=== PATIENT | male | born 1945 | race Caucasian/White ===

== ENCOUNTER → 2017-12-18 09:33 | Outpatient (CLI) | payer MEDICARE, SELFPAY ==
[2017-12-18 11:07] LABS: PSA,Total- Diagnostic 4.43 ng/mL (0.0-4.0)
== END ==
PROVIDERS: Family Provider Internal Medicine; PCP Internal Medicine; Visit Provider Urology
DX: C61 Malignant neoplasm of prostate (principal)
CPT/HCPCS: 36415; 84153

== ENCOUNTER 2018-04-20 22:53 | Emergency (ER) | payer MEDICARE, SELFPAY ==
[2018-04-20 22:55] VITALS: BP 139/82; PULSE 99; RESP 15; TEMP 36.9; BMI 31.4
[2018-04-20 23:27] LABS: Absolute Neutrophil Count 4.1 X10^3/uL (2.0-7.7); Basophil# 0.02 X10^3/uL; Basophil% 0.3 % (0-1); Eosinophil# 0.02 X10^3/uL; Eosinophils% 0.3 % (0-5); Hematocrit 40.4 % (40-54); Hemoglobin 13.5 g/dl (13.0-16.5); Lymphocyte % 36.3 % (19-41); Mean Corp Hgb Conc 33.4 g/gl (32-36); Mean Corpuscular Volume 92.7 fL (80-94); Mean Platelet Vol. 10.8 fl (6.2-12.0); Monocyte# 0.57 X10^3/uL; Monocyte% 7.7 % (0-10); Neutrophil # 4.12 X10^3/uL (2.7-7.7); Neutrophil % 55.3 % (47-70); Platelet Count 316 K/mm3 (150-450); RBC Distribution Width CV 13.7 % (11.6-14.6); RBC Distribution Width SD 46.5 fl (35.1-43.9); Red Blood Count 4.36 M/mm3 (4.6-6.2); White Blood Count 7.4 K/mm3 (4.4-11.0)
[2018-04-20 23:28] LABS: Anion Gap 12 (5-15); BUN 63 mg/dL (7-18); BUN/Creat Ratio 40.9 RATIO (10-20); Calcium,Total 9.4 mg/dL (8.5-10.1); Chloride 96 mmol/L (98-107); Creatinine, Serum 1.54 mg/dL (0.70-1.30); EST Glomerular Filtration Rate 48 mL/min (>60); Est Glom Filt Rate - Afr Amer 58 mL/min (>60); Estimated Creatinine Clearance 51.15 ml/min; Glucose 167 mg/dL (74-106); Potassium 3.9 mmol/L (3.5-5.1); Sodium Level 130 mmol/L (136-145)
[2018-04-20 23:31] VITALS: PULSE 98; RESP 26; O2SAT 92
[2018-04-20 23:35] LABS: POSITIVE COUNT NO; POSITIVE DIFFERENTIAL NO; POSITIVE MORPHOLOGY NO
[2018-04-20] MEDS: Morphine 4 MG/ML Syringe IV (23:38)
[2018-04-20] MEDS: Ondansetron 4 MG/2 ML Vial IV (23:38)
--- NOTE | 2018-04-20 23:38 | CT_ITS ---
STUDY: CT ABDOMEN AND PELVIS WITHOUT CONTRAST REASON FOR EXAM: Male, 73 years old. LOWER ABD PAIN ALL OVER SINCE 1030PM, EARLIER THIS WEEK N/V/D, HX LIVER CA 2014 RADIATION DOSAGE (If Supplied By Facility): CTDIvol = ( 19.30 ) mGy, DLP = ( 1340.55 ) mGycm TECHNIQUE: Transaxial images were obtained from the dome of the diaphragm to the symphysis pubis without oral contrast, and without intravenous contrast. Sagittal and coronal images were reconstructed. Individualized dose optimization techniques were used for this CT. COMPARISON: None. FINDINGS: There is dependent atelectasis in the right and left lung lower lobes. The visualized portions of the heart are within normal limits. Normal liver. There are multiple gallstones. Normal spleen. Normal pancreas. Normal bilateral adrenal glands. Normal right kidney. Normal left kidney. Normal visualized stomach. There are dilated loops of the small intestine with a non-distended colon consistent with a small bowel obstruction. Due to incarcerated right inguinal hernia measures approximately 9.5 x 7 x 14 cm. Normal colon. The appendix is visualized and appears normal. Normal abdominal aorta. Normal inferior vena cava. Normal retroperitoneum. Normal urinary bladder. There is an incarcerated right-sided inguinal hernia containing the ileocecal junction. There is an umbilical hernia containing fat measures 3 cm. Normal osseous structures. CT/Abdomen/Pelvis without Cont IMPRESSION: There are dilated loops of the small intestine with a non-distended colon consistent with a small bowel obstruction. There is an incarcerated right inguinal hernia measures approximately 9.5 x 7 x 14 cm. Electronically Signed: Laverne Ladd MD at 0:50 EDT Tel , Service support ,
[2018-04-20 23:47] VITALS: BP 135/76; PULSE 88; RESP 24; O2SAT 88
[2018-04-21 00:07] LABS: International Normalized Ratio 1.3; Prothrombin Time (Protime)PT. 16.3 SECONDS (11.7-14.9)
[2018-04-21 00:08] LABS: Partial Thromboplast Time 39.8 Seconds (24.1-36.2)
[2018-04-21] MEDS: Morphine 4 MG/ML Syringe IV (00:26)
[2018-04-21 00:30] VITALS: BP 157/77; PULSE 110; RESP 28; O2SAT 95
--- NOTE | 2018-04-21 00:57 | ED.VISSUMM ---
- ER Visit Summary Date of Service: 04/21/18 Chief Complaint: [] Abdominal pain History of Present Illness: The patient is a 73 M planing of abdominal pain for last hours sudden onset continuous aching cramping sharp and stabbing lower abdomen pain. Associated with nausea. He has had a chronic right inguinal hernia that has been worsening of the last 2 weeks. He does have a history of hepatocellular carcinoma in remission. Physical Examination: [] Vital signs reviewed General: Well-nourished well-developed Head: Normocephalic atraumatic Eyes: Pupils equal round and reactive to light extraocular movements intact ENT: TMs clear no hemotympanum no trauma Neck: Nontender full range of motion Cardiovascular: Regular rate rhythm no murmurs normal S1-S2 Respiratory: No distress clear to auscultation bilaterally chest nontender Abdomen: Mild diffuse lower abdominal tenderness. Small umbilical hernia. Large right inguinal hernia into the scrotum. It is a baseball size. There is induration. Tenderness. Back: Nontender no CVA tenderness Extremities: Nontender active range of motion ?4 extremities no trauma Skin: Normal color no trauma Neuro alert oriented cranial nerves II through XII intact normal strength sensation reflexes Test Results: [] Emergency Department Course and Treatment: [] Multiple attempts were tried to reduce the hernia with no success. It is too large and indurated. CBC normal. Chemistries normal except sodium 130. Chloride 96. Creatinine 1.5. Coags are negative. CT abdomen pelvis shows small bowel obstruction with incarcerated right inguinal hernia. I do not think the patient needs an NG. Is not having vomiting. Will be transferred to [facility] as our operating room is down for cleaning. Discussed with our surgeon on-call Dr. Amezcua and also Dr. Cohen at [facility]. He will be transferred. Given morphine IV fluids and Zofran with good relief of symptoms Treatment Plan: [] Disposition: [] Impression: [] Incarcerated right inguinal hernia Small bowel obstruction secondary to incarcerated inguinal hernia Acute renal insufficiency Critical CARE time: 30-74 minutes This note was generated with [facility] dictation software. It may contain incorrect words, spelling, and punctuation that were not noted in review of the chart prior to signing ED Disposition - Plan for ED Patient: Chief Complaint: Abd Pain Referrals: Swetha Pedersen DO [Primary Care Provider] -
[2018-04-21] MEDS: HYDROmorphone 0.5 MG/0.5 ML SYRINGE IV (01:36)
[2018-04-21 02:17] VITALS: BP 117/65; PULSE 107; O2SAT 91
[2018-04-21 03:00] VITALS: BP 105/58; PULSE 98; RESP 22; TEMP 36.9; O2SAT 93
== END 2018-04-21 02:57 | disposition short-term general hospital (02) ==
PROVIDERS: Emergency Provider Emergency Medicine; Family Provider Internal Medicine; PCP Internal Medicine
DX: K40.30 Unilateral inguinal hernia, with obstruction, without gangrene, not specified as recurrent (principal); N28.9 Disorder of kidney and ureter, unspecified; I10 Essential (primary) hypertension; E78.00 Pure hypercholesterolemia, unspecified; B19.20 Unspecified viral hepatitis C without hepatic coma; Z85.05 Personal history of malignant neoplasm of liver; Z79.82 Long term (current) use of aspirin; Z79.899 Other long term (current) drug therapy
CPT/HCPCS: 74176; 80048; 85025; 85610; 85730; 96361; 96374; 96375; 96376; 99284; J7040; A4216; J2405

== ENCOUNTER 2018-05-11 12:26 | Inpatient (IN) | payer MEDICARE, SELFPAY ==
[2018-05-11] VITALS (8 sets, daily range): BP systolic 109–129; BP diastolic 68–75; PULSE 91–106; RESP 16–18; TEMP 36.6–37.4; O2SAT 92–94; BMI 28.8; BMI 29.3; BMI 29.4
--- NOTE | 2018-05-11 13:08 | ED.DCSUM_ITS ---
- ER Visit Summary Date of Service: 05/11/18 Chief Complaint: Wound check History of Present Illness: The patient is a 73 M presenting for wound check. Patient had surgery at [facility] on April 25 for a strangulated hernia. This was complicated by sepsis. He was in the hospital for 12 days. He was discharged 1 week ago. He has home nursing that changes his dressing once daily. They were concerned about a foul odor yesterday. Today he developed a fever and was advised to come to the ED for further evaluation. Physical Examination: Vitals are stable. Patient is afebrile. Alert no acute distress. HEENT exam is unremarkable. Neck is supple. Lungs are clear and equal bilaterally. Heart is regular rate and rhythm. Abdomen is soft nontender nondistended. Incision intact with mild erythema Extremities are unremarkable. Skin is warm and dry. No focal neurologic deficit. Remainder of exam is unremarkable. Emergency Department Course and Treatment: CBC shows a hemoglobin 9.7. Chemistries show sodium 130, glucose 136. Urinalysis unremarkable. Abdominal series shows pleural effusion versus infiltrate; ileus. Patient was given vancomycin and Zosyn for healthcare acquired pneumonia. Discussed with Dr. Meeks at [facility]. He is in agreement that the patient can stay at [facility] as the patient wishes. Discussed with Dr. Hyde and patient will be admitted. Disposition: Admission Impression: Healthcare acquired pneumonia This note was generated with [employer] dictation software. It may contain incorrect words, spelling, and punctuation that were not noted in review of the chart prior to signing ED Disposition - Plan for ED Patient: Chief Complaint: Wound Check Referrals: Swetha Pedersen DO [Primary Care Provider] -
[2018-05-11 13:30] LABS: Absolute Lymphocyte Count 1.73 X10^3/ul (0.83-4.51); Absolute Neutrophil Count 4.9 X10^3/uL (2.0-7.7); Basophil# 0.03 X10^3/uL; Basophil% 0.4 % (0-1); Eosinophils% 1.3 % (0-5); Hematocrit 29.8 % (40-54); Hemoglobin 9.7 g/dl (13.0-16.5); Lymphocyte # 1.73 X10^3/ul (4.0); Mean Corp Hgb Conc 32.6 g/gl (32-36); Mean Corpuscular Hgb 29.8 pg (27.0-32.0); Mean Corpuscular Volume 91.4 fL (80-94); Monocyte# 0.76 X10^3/uL; Monocyte% 10.1 % (0-10); Neutrophil # 4.85 X10^3/uL (2.7-7.7); Neutrophil % 64.5 % (47-70); POSITIVE COUNT NO; POSITIVE DIFFERENTIAL NO; POSITIVE MORPHOLOGY NO; Platelet Count 433 K/mm3 (150-450); RBC Distribution Width CV 14.1 % (11.6-14.6); RBC Distribution Width SD 46.5 fl (35.1-43.9); Red Blood Count 3.26 M/mm3 (4.6-6.2); White Blood Count 7.5 K/mm3 (4.4-11.0)
--- NOTE | 2018-05-11 13:30 | RAD_ITS ---
STUDY: X-RAY - ACUTE ABDOMINAL SERIES REASON FOR EXAM: Male, 73 years old. Recent hernia repair. Fever. TECHNIQUE: Single view of the chest. Supine, and erect view(s) of the abdomen were obtained. COMPARISON: CT scan 04/20/2018. FINDINGS: The chest x-ray shows extensive density in the lower half of the right lung consistent with atelectasis or infiltrate along with pleural effusion. In the abdomen and pelvis, there or a few air-fluid levels some of which are in small bowel and suggest ileus. However no definite dilated loops of bowel or evidence for obstruction and no definite free air. Cholelithiasis is seen. Degenerative changes throughout the bones. IMPRESSION: Extensive abnormality the right lung with pleural effusion and atelectasis or infiltrate. Bowel gas pattern suggests ileus. Electronically Signed: Benton Toledo MD at 14:45 EDT , Service support , RAD/Acute Abdomen Inc Chest
[2018-05-11 13:42] LABS: Anion Gap 7 (5-15); BUN 12 mg/dL (7-18); BUN/Creat Ratio 14.9 RATIO (10-20); Calcium,Total 7.8 mg/dL (8.5-10.1); Chloride 98 mmol/L (98-107); Creatinine, Serum 0.81 mg/dL (0.70-1.30); EST Glomerular Filtration Rate 100 mL/min (>60); Est Glom Filt Rate - Afr Amer 121 mL/min (>60); Estimated Creatinine Clearance 97.25 ml/min; Glucose 136 mg/dL (74-106); Potassium 4.2 mmol/L (3.5-5.1); Sodium Level 130 mmol/L (136-145)
[2018-05-11 14:36] LABS: Red Blood Cells-Urine 0 SEEN /hpf (0-5)
[2018-05-11 14:37] LABS: Color, Urine Yellow (Yellow); Glucose, Dipstick Normal (Normal); Ketone-Dipstick Negative (Negative); Leukocyte Esterase-Dipstick 25 /ul (Negative); Nitrite-Dipstick Negative (Negative); Occult Blood-Urine Negative /ul (Negative); Protein-Dipstick 15 mg/dl (Negative); Urine Clarity Clear (Clear); Urine Urobilinogen 4 mg/dl (Normal)
[2018-05-11 14:40] LABS: Urine Bilirubin Dipstick 1 mg/dL (Negative)
[2018-05-11 14:45] LABS: Bacteria 1+ /hpf (None Seen); Mucous, Urine 2+ /hpf (<or=2+); Squamous Epithelial Cells - UA 0-5 SEEN /hpf (0-5); White Blood Cells 0-5 SEEN /hpf (0-5)
--- NOTE | 2018-05-11 15:50 | HP.PCM_ITS ---
Problem List (1) Pneumonia Status: Acute (2) Essential hypertension Status: Chronic (3) Dyslipidemia Status: Chronic History of Present Illness Date of Admission: 05/11/18 Chief Complaint: Cough The patient is a 73 year old M with recent laparotomy for strength related hernia which was performed at [facility]. Patient presented with generalized weakness. Patient was apparently paid a visit by his home health nurse who felt his incision was infected. He was therefore asked to present to the ED. On further questioning patient did admit to feeling excessive fatigue he also has a cough but no shortness of breath. He did experience low-grade fever at home. Imaging studies obtained in the ED demonstrated right lower lobe infiltrate consistent with pneumonia and assessment of healthcare acquired pneumonia made patient admitted to regular nursing floor for further management. Past Medical History Past Medical History (Chronic Problems): Chronic Problems Essential hypertension (Chronic) Dyslipidemia (Chronic) Allergies No Known Allergies Allergy (Verified 05/11/18 12:26) Home Medications: Ambulatory Orders Medication Instructions Recorded Amlodipine [Norvasc] 5 mg PO DAILY 04/20/18 Aspirin [Aspirin, Baby] 81 mg PO DAILY@0800 04/20/18 Cholecalciferol (Vitamin D3) 5,000 unit PO DAILY 04/20/18 [Vitamin D3] Gemfibrozil [Lopid] 600 mg NG BIDAC 04/20/18 Lisinopril [Zestril] 20 mg PO BID 04/20/18 Multivitamin [Daily Multiple 1 each PO DAILY 04/20/18 Vitamin] Oxycodone HCl/Acetaminophen 1 - 2 tablet PO Q6H PRN PRN 05/11/18 [Percocet 5/325] Promethazine HCl 25 mg PO Q6H PRN 05/11/18 Smoking Status: Former smoker - *Family History Maternal History Items: Cancer Paternal History Items: Heart Disease Review of Systems Constitutional: Reports: Anorexia, Fever, Malaise, Weakness HEENT: Denies: Head Aches, Sinus Congestion, Sinus Drainage Cardiovascular: Denies: Chest Pain, Orthopnea, Palpitations, Paroxysmal Noc. Dyspnea Respiratory: Reports: Cough Gastrointestinal: Denies: Abdominal Pain, Hematemesis, Hematochezia, Nausea, Melena, Vomiting Genitourinary: Denies: Dysuria, Frequency, Hematuria, Urgency Musculoskeletal: Denies: Joint Pain, Joint Tenderness Skin: Denies: Rash Neurological: Denies: Focal weakness, Numbness, Tingling Psychiatric: Denies: Homicidal Ideations, Suicidal Ideations Hematologic/ Lymphatic: Denies: Easy Bruising, Easy Bleeding VTE Information - Inpt Only VTE Present on Admission: No VTE Mechan Device Prophylaxis: Knee High OLGA Hose VTE Pharm Prophylaxis ordered?: Yes Patient Problems: Active and Suspected Problems Pneumonia (Acute) Objective: GENERAL: Patient appears ill looking HEENT: Atraumatic; moist oral mucosa EYES; Anicteric, Normal Conjunctiva NECK; supple, normal thyroid, no distended JVD. RESPIRATORY: Diminished to auscultation bilaterally, CARDIOVASCULAR: Regular S1 S2, no audible murmurs GI: soft, non-tender, abdominal incision well-healed : No Renal angle tenderness; EXTREMITIES: No edema, no clubbing, no cyanosis. MUSCULOSKELETAL: No Joint Tenderness; no muscle waisting NEURO: Awake; no lateralizing signs. SKIN: No Rash PSYCH; Flaaffect - Physical Exam Vital Signs Temp Pulse Resp BP Pulse Ox 99.4 F H 106 H 16 109/68 92 05/11/18 12:52 05/11/18 12:27 05/11/18 14:33 05/11/18 12:27 05/11/18 12:27 Oxygen Delivery Method Room Air Weight: 102.058 kg Body Mass Index (BMI) 28.8 Laboratory Tests Past 24 Hrs 05/11/18 05/11/18 05/11/18 13:19 13:19 14:29 WBC 7.5 RBC 3.26 L Hgb 9.7 L Hct 29.8 L MCV 91.4 MCH 29.8 MCHC 32.6 RDW 14.1 RDW Differential 46.5 H Plt Count 433 MPV 9.0 Immature Gran % (Auto) 0.700 Neut % (Auto) 64.5 Lymph % (Auto) 23.0 [place] % (Auto) 10.1 H Eos % (Auto) 1.3 Baso % (Auto) 0.4 Absolute Neuts (auto) 4.9 Absolute Lymphs (auto) 1.73 Total Counted Not Reportable Sodium 130 L Potassium 4.2 Chloride 98 Carbon Dioxide 25.0 Anion Gap 7 BUN 12 Creatinine 0.81 Estim Creat Clear Calc 97.25 Est GFR (MDRD) Af Amer 121 Est GFR (MDRD) Non-Af 100 BUN/Creatinine Ratio 14.9 Glucose 136 H Calcium 7.8 L Urine Color Yellow Urine Clarity Clear Urine pH 7.0 Ur Specific [place] 1.010 Urine Protein 15 H Urine Glucose (UA) Normal Urine Ketones Negative Urine Occult Blood Negative Urine Nitrite Negative Urine Bilirubin 1 H Urine Urobilinogen 4 H Ur Leukocyte Esterase 25 H Urine RBC 0 SEEN Urine WBC 0-5 SEEN Ur Squamous Epith Cells 0-5 SEEN Urine Bacteria 1+ Urine Mucus 2+ Assessment/Plan All Active Problems Pneumonia (Acute) Patient is a 73-year-old gentleman who underwent exploratory laparotomy on account of strength related hernia on 04/21/2018 at [facility] presents with progressive generalized weakness 1. Healthcare acquired pneumonia: Suspected to negative organisms. Patient is admitted to regular floor. Blood and sputum cultures sent. Patient placed on Zosyn as well as ciprofloxacin in addition to oxygen titrated to keep oxygen saturation greater than 90. Also did order for incentive spirometry 2. Adult failure to thrive: Requested for PT OT eval and social work faculty member to assist with discharge planning 3. Dyslipidemia patient is on gemfibrozil 4. Hypertension-blood pressure controlled, home medications continued with dose adjustment as needed 5. DVT prophylaxis SC Lovenox Advance planning; did discuss with the patient and family regarding her advanced directives as well as CODE STATUS. Did explain the various modalities involved ( FULL CODE, DNR CCA, DNR CCA with no intubation, and DNR CC ) patient elected to be full code. Order was placed. Time spent on discussion 16 minutes. Code Visit Inpatient E&M: 68286 Subs Hosp L3 Procedures: 29812 Advncd Care Plan 30 Min
[2018-05-11] MEDS: Dext 5%-0.45% NS 1,000 ML 100 ML IV (17:55)
[2018-05-11] MEDS: guaiFENesin 1,200 MG Tablet 1200 MG PO (22:31)
[2018-05-11] MEDS: Zolpidem Tartrate 5 MG Tablet PO (22:31)
[2018-05-11] MEDS: Famotidine 20 MG Tablet PO (22:31)
[2018-05-11] MEDS: Lisinopril 20 MG Tablet PO (22:31)
[2018-05-11] MEDS: Ciprofloxacin 400 MG/200 ML BAG 200 MG IV (22:31)
[2018-05-11] MEDS: Piperacil/Tazobactam 3.375 GM/50 ML ML IV (23:38)
[2018-05-12] VITALS (14 sets, daily range): BP systolic 100–148; BP diastolic 56–84; PULSE 80–102; RESP 18–28; TEMP 36.6–37.9; O2SAT 91–99
[2018-05-12] MEDS: Dext 5%-0.45% NS 1,000 ML 100 ML IV (03:34)
[2018-05-12] MEDS: Furosemide 40 MG/4 ML Vial IV (03:58)
[2018-05-12] MEDS: 0.9% NaCl Peripheral Flush Adult/Peds IV (03:58)
[2018-05-12] MEDS: Ciprofloxacin 400 MG/200 ML BAG 200 MG IV ×3 (05:01→20:58)
[2018-05-12] MEDS: Acetaminophen 325 MG Tablet 650 MG PO (05:01)
[2018-05-12 05:56] LABS: BNP,B-Type NATRIURETIC PEPTIDE 40.6 pg/mL (0-100)
--- NOTE | 2018-05-12 06:00 | ECHOD_ITS ---
Reason For Study: Dyspnea/SOB Procedure This was a 2D Doppler, Color Flow transthoracic echocardiogram. Exam performed portable in patient room. Left Ventricle Normal size and thickness. The estimated ejection fraction is 65 %. Stage 1 diastolic dysfunction. Right Ventricle Normal right ventricle. Atria Normal left atrium. Normal right atrium. Mitral Valve The mitral valve is structurally normal. No prolapse or stenosis seen. Tricuspid Valve Mild tricuspid valve insufficiency. Right ventricular systolic pressure estimated to be 35 mmHg. Aortic Valve Normal aortic valve. Pulmonic Valve The pulmonic valve is not well visualized. Great Vessels Normal aortic root. Pericardium/Pleural No pericardial effusion. MMode/2D Measurements & Calculations LVIDd: 4.6 cm IVSd: 1.0 cm Ao root diam: 3.5 cm LVIDs: 3.4 cm LVPWd: 1.3 cm LA dimension: 3.5 cm FS: 26.2 % LAV(MOD-bp): 74.3 ml LA A4 area: 23.0 cm2 RA A4 area: 13.5 cm2 LAV(MOD-bp) Indexed: 32.3 ml/m2 LAV(MOD-sp2): 74.2 ml LAV(MOD-sp4): 75.8 ml Time Measurements MV dec time: 0.28 sec Doppler Measurements & Calculations MV E max ju[place]: 66.0 cm/sec Lat Peak E' [place]: 9.6 cm/sec Med Peak E' [place]: 9.3 cm/sec MV A max ju[place]: 78.3 cm/sec E/E' lat: 6.9 E/E' med: 7.1 MV E/A: 0.84 MV V2 max: 79.3 cm/sec MV P1/2t max juan franc[place]: 71.0 cm/sec Ao V2 max: 168.5 cm/sec MV max P.5 mmHg MV P1/2t: 74.0 msec Ao max P.4 mmHg MV V2 mean: 49.6 cm/sec MV dec slope: 280.8 cm/sec2 Ao V2 mean: 107.7 cm/sec MV mean P.1 mmHg MVA(P1/2t): 3.0 cm2 Ao mean P.4 mmHg MV V2 VTI: 21.3 cm Ao V2 VTI: 26.2 cm LV V1 max: 147.4 cm/sec PA V2 max: 124.2 cm/sec TR max juan francisco: 269.2 cm/sec LV V1 max P.7 mmHg TR max P.0 mmHg LV V1 mean P.5 mmHg LV V1 mean: 84.7 cm/sec LV V1 VTI: 22.9 cm Interpretation Summary The estimated ejection fraction is 65 %. Stage 1 diastolic dysfunction. Right ventricular systolic pressure estimated to be 35 mmHg. Mild tricuspid valve insufficiency. Ordering Physician: Rosmery Greenfield Referring Physician: Swetha Pedersen M.D. Performed By: Duncan Rubio RCS
[2018-05-12] MEDS: Piperacil/Tazobactam 3.375 GM/50 ML ML IV ×3 (06:27→22:42)
[2018-05-12] MEDS: Ipratropium/Albuterol Sulfate 3 ML AMPUL.NEB INHALATION ×2 (07:06→13:16)
[2018-05-12] MEDS: Aspirin 81 MG TAB.CHEW PO (08:05)
[2018-05-12] MEDS: Multivitamins,Therapeutic Tablet 1 TABLET PO (08:05)
--- NOTE | 2018-05-12 09:14 | PCM.PN.HOSP ---
Patient Problems: Active and Suspected Problems Pneumonia (Acute) Subjective: Patient is a 73-year-old gentleman who underwent exploratory laparotomy on account of strength related hernia on 04/21/2018 at [facility] presents with progressive generalized weakness 05/12/2018. Patient went into acute respiratory distress during the evening. An assessment of fluid overload was made patient did receive Lasix with significant urine output. His IV fluids subsequently discontinued 2D echo ordered for EF assessment Objective: GENERAL: Patient appears ill looking HEENT: Atraumatic; moist oral mucosa EYES; Anicteric, Normal Conjunctiva NECK; supple, normal thyroid, no distended JVD. RESPIRATORY: Diminished to auscultation bilaterally, bibasilar Rales CARDIOVASCULAR: Regular S1 S2, no audible murmurs GI: soft, non-tender, abdominal incision well-healed : No Renal angle tenderness; EXTREMITIES: No edema, no clubbing, no cyanosis. MUSCULOSKELETAL: No Joint Tenderness; no muscle waisting NEURO: Awake; no lateralizing signs. SKIN: No Rash PSYCH; Flat affect Vitals/I&O's: Vital Signs Temp Pulse Resp BP Pulse Ox 98 F 88 24 H 100/56 L 94 05/12/18 08:30 05/12/18 08:30 05/12/18 08:30 05/12/18 08:30 05/12/18 08:30 Oxygen Flow Rate (L/min) 4 Oxygen Delivery Method Nasal Cannula Weight: 103.8 kg Body Mass Index (BMI) 29.3 Intake and Output for Last 24 Hours 05/10/18 05/11/18 05/12/18 23:59 23:59 23:59 Intake Total 806 / 806 795 / 795 Output Total 400 / 400 3050 / 3050 Balance 406 / 406 -2255 / -2255 Microbiology Past 72 Hours 05/11/18 19:30 Mucosa - Nasopharyngeal Influenza Types A,B Direct FA (KELL) - Final 05/11/18 17:20 Sputum, Expectorated/Coughed Gram Stain - Preliminary 05/11/18 16:49 Urine, Clean Catch Streptococcus pneumoniae Antigen (M - Final 05/11/18 16:49 Urine, Clean Catch Legionella Antigen - Final Laboratory Results 05/11/18 13:19: WBC 7.5, RBC 3.26 L, Hgb 9.7 L, Hct 29.8 L, MCV 91.4, MCH 29.8, MCHC 32.6, RDW 14.1, RDW Differential 46.5 H, Plt Count 433, MPV 9.0, Immature Gran % (Auto) 0.700, Neut % (Auto) 64.5, Lymph % (Auto) 23.0, [place] % (Auto) 10.1 H, Eos % (Auto) 1.3, Baso % (Auto) 0.4, Absolute Neuts (auto) 4.9, Absolute Lymphs (auto) 1.73, Total Counted Not Reportable 05/11/18 13:19: Sodium 130 L, Potassium 4.2, Chloride 98, Carbon Dioxide 25.0, Anion Gap 7, BUN 12, Creatinine 0.81, Estim Creat Clear Calc 97.25, Est GFR (MDRD) Af Amer 121, Est GFR (MDRD) Non-Af 100, BUN/Creatinine Ratio 14.9, Glucose 136 H, Calcium 7.8 L 05/11/18 14:29: Urine Color Yellow, Urine Clarity Clear, Urine pH 7.0, Ur Specific [place] 1.010, Urine Protein 15 H, Urine Glucose (UA) Normal, Urine Ketones Negative, Urine Occult Blood Negative, Urine Nitrite Negative, Urine Bilirubin 1 H, Urine Urobilinogen 4 H, Ur Leukocyte Esterase 25 H, Urine RBC 0 SEEN, Urine WBC 0-5 SEEN, Ur Squamous Epith Cells 0-5 SEEN, Urine Bacteria 1+, Urine Mucus 2+ 05/11/18 16:49: Urine Color Cancelled, Urine Clarity Cancelled, Urine pH Cancelled, Ur Specific [place] Cancelled, U Specif Grav (Refrac) Cancelled, Urine Protein Cancelled, Urine Glucose (UA) Cancelled, Urine Ketones Cancelled, Urine Occult Blood Cancelled, Urine Nitrite Cancelled, Urine Bilirubin Cancelled, Urine Urobilinogen Cancelled, Ur Leukocyte Esterase Cancelled 05/12/18 04:55: Lactic Acid 1.0 05/12/18 04:55: B-Natriuretic Peptide 40.6 Current Medications Acetaminophen (Tylenol) 650 mg PO Q4H PRN PRN PRN Reason: FEVER Last Admin: 05/12/18 05:01 Dose: 650 mg Albuterol Sulfate (Ventolin Aerosols) 2.5 mg INHALATION Q2H PRN PRN PRN Reason: SHORTNESS OF BREATH Albuterol/Ipratropium (Duoneb) 3 ml INHALATION Q6H.RT [facility] Last Admin: 05/12/18 07:06 Dose: 3 ml Amlodipine Besylate (Norvasc) 5 mg PO DAILY [facility] Aspirin (Aspirin, Baby) 81 mg PO DAILY@0800 [facility] Last Admin: 05/12/18 08:05 Dose: 81 mg Cholecalciferol (Vitamin D) 5,000 unit PO DAILY [facility] Enoxaparin Sodium (Lovenox) 40 mg SC DAILY@1000 [facility] Famotidine (Pepcid) 20 mg PO BID [facility] Last Admin: 05/11/18 22:31 Dose: 20 mg Guaifenesin (Mucinex) 1,200 mg PO BID [facility] Last Admin: 05/11/18 22:31 Dose: 1,200 mg Ciprofloxacin (Cipro) 400 mg in 200 mls @ 200 mls/hr IV Q8 [facility] Last Admin: 05/12/18 05:01 Dose: 200 mls/hr Piperacillin Sod/Tazobactam Sod (Zosyn) 3.375 gm in 50 mls @ 12.5 mls/hr IV Q8 [facility] Last Admin: 05/12/18 06:27 Dose: 12.5 mls/hr Lisinopril (Zestril) 20 mg PO BID [facility] Last Admin: 05/11/18 22:31 Dose: 20 mg Magnesium Hydroxide (Milk Of Magnesia) 30 ml PO DAILY PRN PRN Reason: Constipation Multivitamins (Multivitamin) 1 tablet PO DAILY@0800 [facility] Last Admin: 05/12/18 08:05 Dose: 1 tablet Nutritional Formula (Lactose Free) (Ensure Enlive) 120 ml PO 4X/DAY [facility] Last Admin: 05/11/18 22:30 Dose: 120 ml Ondansetron HCl (Zofran) 4 mg IV Q8H PRN PRN PRN Reason: NAUSEA Promethazine HCl (Phenergan Tablet) 25 mg PO Q6H PRN PRN Reason: NAUSEA Sodium Chloride () 5 - 30 ml IV UD PRN PRN Reason: SALINE FLUSH Last Admin: 05/12/18 03:58 Dose: 20 ml Zolpidem Tartrate (Ambien (Generic)) 5 mg PO QHS PRN PRN PRN Reason: SLEEP Last Admin: 05/11/18 22:31 Dose: 5 mg Medical Necessity - Tobacco Use Smoking Status: Former smoker Assessment/Plan All Active Problems Pneumonia (Acute) Patient is a 73-year-old gentleman who underwent exploratory laparotomy on account of strangulated hernia on 04/21/2018 at [facility] presents with progressive generalized weakness 1. Healthcare acquired pneumonia: Suspected to negative organisms. Patient is admitted to regular floor. Blood and sputum cultures sent. Patient placed on Zosyn as well as ciprofloxacin in addition to oxygen titrated to keep oxygen saturation greater than 90. Also did order for incentive spirometry 2. Suspected acute diastolic congestive heart failure patient started on Lasix echo ordered for EF assessment 3. Recent exploratory laparotomy on account of strangulated hernia at [facility] patient wound appears clean dry and intact consult was placed to wound care nurse to use wound care 4. Dyslipidemia patient is on gemfibrozil 5. Hypertension-blood pressure controlled, home medications continued with dose adjustment as needed 6. Adult failure to thrive: Requested for PT OT eval and social science analyst to assist with discharge planning 7. DVT prophylaxis SC Lovenox Advance planning; did discuss with the patient and family regarding her advanced directives as well as CODE STATUS. Did explain the various modalities involved ( FULL CODE, DNR CCA, DNR CCA with no intubation, and DNR CC ) patient elected to be full code. Order was placed. Time spent on discussion 16 minutes. Active Medications Acetaminophen (Tylenol) 650 mg PO Q4H PRN PRN PRN Reason: FEVER Last Admin: 05/12/18 05:01 Dose: 650 mg Albuterol Sulfate (Ventolin Aerosols) 2.5 mg INHALATION Q2H PRN PRN PRN Reason: SHORTNESS OF BREATH Albuterol/Ipratropium (Duoneb) 3 ml INHALATION Q6H.RT [facility] Last Admin: 05/12/18 07:06 Dose: 3 ml Amlodipine Besylate (Norvasc) 5 mg PO DAILY [facility] Aspirin (Aspirin, Baby) 81 mg PO DAILY@0800 [facility] Last Admin: 05/12/18 08:05 Dose: 81 mg Cholecalciferol (Vitamin D) 5,000 unit PO DAILY [facility] Enoxaparin Sodium (Lovenox) 40 mg SC DAILY@1000 [facility] Famotidine (Pepcid) 20 mg PO BID [facility] Last Admin: 05/11/18 22:31 Dose: 20 mg Guaifenesin (Mucinex) 1,200 mg PO BID [facility] Last Admin: 05/11/18 22:31 Dose: 1,200 mg Ciprofloxacin (Cipro) 400 mg in 200 mls @ 200 mls/hr IV Q8 [facility] Last Admin: 05/12/18 05:01 Dose: 200 mls/hr Piperacillin Sod/Tazobactam Sod (Zosyn) 3.375 gm in 50 mls @ 12.5 mls/hr IV Q8 [facility] Last Admin: 05/12/18 06:27 Dose: 12.5 mls/hr Lisinopril (Zestril) 20 mg PO BID [facility] Last Admin: 05/11/18 22:31 Dose: 20 mg Magnesium Hydroxide (Milk Of Magnesia) 30 ml PO DAILY PRN PRN Reason: Constipation Multivitamins (Multivitamin) 1 tablet PO DAILY@0800 [facility] Last Admin: 05/12/18 08:05 Dose: 1 tablet Nutritional Formula (Lactose Free) (Ensure Enlive) 120 ml PO 4X/DAY [facility] Last Admin: 05/11/18 22:30 Dose: 120 ml Ondansetron HCl (Zofran) 4 mg IV Q8H PRN PRN PRN Reason: NAUSEA Promethazine HCl (Phenergan Tablet) 25 mg PO Q6H PRN PRN Reason: NAUSEA Sodium Chloride () 5 - 30 ml IV UD PRN PRN Reason: SALINE FLUSH Last Admin: 05/12/18 03:58 Dose: 20 ml Zolpidem Tartrate (Ambien (Generic)) 5 mg PO QHS PRN PRN PRN Reason: SLEEP Last Admin: 05/11/18 22:31 Dose: 5 mg Code Visit Inpatient E&M: 16196 [facility] Hosp L3
--- NOTE | 2018-05-12 09:17 | RAD_ITS ---
STUDY: X-RAY CHEST REASON FOR EXAM: Male, 73 years old. SOB / SOA TECHNIQUE: Single frontal view of the chest. COMPARISON: None. FINDINGS: Chronic appearing increased interstitial lung markings. Large right pleural effusion. Enlarged heart size. Normal mediastinum and jason. Normal visualized pulmonary arteries. There is atherosclerotic calcification of the aortic arch with tortuosity. There are diffuse degenerative changes of the visualized thoracic spine. There is degenerative osteoarthritis of the bilateral shoulders. There is no demonstrated abnormality of the visualized soft tissue structures of the upper abdomen. RAD/Chest 1 View (Portable) IMPRESSION: Large right pleural effusion. Electronically Signed: Scottie Abbasi MD at 17:55 EDT , Service support ,
[2018-05-12 09:24] LABS: Hematocrit 29.5 % (40-54); Hemoglobin 9.7 g/dl (13.0-16.5); Mean Corp Hgb Conc 32.9 g/gl (32-36); Mean Corpuscular Volume 91.3 fL (80-94); Mean Platelet Vol. 9.4 fl (6.2-12.0); Platelet Count 467 K/mm3 (150-450); RBC Distribution Width CV 14.2 % (11.6-14.6); RBC Distribution Width SD 47.6 fl (35.1-43.9); Red Blood Count 3.23 M/mm3 (4.6-6.2); Scan Indicated on CBC? Y/N NO; White Blood Count 8.3 K/mm3 (4.4-11.0)
--- NOTE | 2018-05-12 09:24 | PN_ITS ---
Patient Problems: Active and Suspected Problems Pneumonia (Acute) Subjective: Patient is a 73-year-old gentleman who underwent exploratory laparotomy on account of strength related hernia on 04/21/2018 at [facility] presents with progressive generalized weakness 05/12/2018. Patient went into acute respiratory distress during the evening. An assessment of fluid overload was made patient did receive Lasix with significant urine output. His IV fluids subsequently discontinued 2D echo ordered for EF assessment Objective: GENERAL: Patient appears ill looking HEENT: Atraumatic; moist oral mucosa EYES; Anicteric, Normal Conjunctiva NECK; supple, normal thyroid, no distended JVD. RESPIRATORY: Diminished to auscultation bilaterally, bibasilar Rales CARDIOVASCULAR: Regular S1 S2, no audible murmurs GI: soft, non-tender, abdominal incision well-healed : No Renal angle tenderness; EXTREMITIES: No edema, no clubbing, no cyanosis. MUSCULOSKELETAL: No Joint Tenderness; no muscle waisting NEURO: Awake; no lateralizing signs. SKIN: No Rash PSYCH; Flat affect Vitals/I&O's: Vital Signs Temp Pulse Resp BP Pulse Ox 98 F 88 24 H 100/56 L 94 05/12/18 08:30 05/12/18 08:30 05/12/18 08:30 05/12/18 08:30 05/12/18 08:30 Oxygen Flow Rate (L/min) 4 Oxygen Delivery Method Nasal Cannula Weight: 103.8 kg Body Mass Index (BMI) 29.3 Intake and Output for Last 24 Hours 05/10/18 05/11/18 05/12/18 23:59 23:59 23:59 Intake Total 806 / 806 795 / 795 Output Total 400 / 400 3050 / 3050 Balance 406 / 406 -2255 / -2255 Microbiology Past 72 Hours 05/11/18 19:30 Mucosa - Nasopharyngeal Influenza Types A,B Direct FA (KELL) - Final 05/11/18 17:20 Sputum, Expectorated/Coughed Gram Stain - Preliminary 05/11/18 16:49 Urine, Clean Catch Streptococcus pneumoniae Antigen (M - Final 05/11/18 16:49 Urine, Clean Catch Legionella Antigen - Final Laboratory Results 05/11/18 13:19: WBC 7.5, RBC 3.26 L, Hgb 9.7 L, Hct 29.8 L, MCV 91.4, MCH 29.8, MCHC 32.6, RDW 14.1, RDW Differential 46.5 H, Plt Count 433, MPV 9.0, Immature Gran % (Auto) 0.700, Neut % (Auto) 64.5, Lymph % (Auto) 23.0, [place] % (Auto) 10.1 H, Eos % (Auto) 1.3, Baso % (Auto) 0.4, Absolute Neuts (auto) 4.9, Absolute Lymphs (auto) 1.73, Total Counted Not Reportable 05/11/18 13:19: Sodium 130 L, Potassium 4.2, Chloride 98, Carbon Dioxide 25.0, Anion Gap 7, BUN 12, Creatinine 0.81, Estim Creat Clear Calc 97.25, Est GFR (MDRD) Af Amer 121, Est GFR (MDRD) Non-Af 100, BUN/Creatinine Ratio 14.9, Glucose 136 H, Calcium 7.8 L 05/11/18 14:29: Urine Color Yellow, Urine Clarity Clear, Urine pH 7.0, Ur Specific [place] 1.010, Urine Protein 15 H, Urine Glucose (UA) Normal, Urine Ketones Negative, Urine Occult Blood Negative, Urine Nitrite Negative, Urine Bilirubin 1 H, Urine Urobilinogen 4 H, Ur Leukocyte Esterase 25 H, Urine RBC 0 SEEN, Urine WBC 0-5 SEEN, Ur Squamous Epith Cells 0-5 SEEN, Urine Bacteria 1+, Urine Mucus 2+ 05/11/18 16:49: Urine Color Cancelled, Urine Clarity Cancelled, Urine pH Cancelled, Ur Specific [place] Cancelled, U Specif Grav (Refrac) Cancelled, Urine Protein Cancelled, Urine Glucose (UA) Cancelled, Urine Ketones Cancelled, Urine Occult Blood Cancelled, Urine Nitrite Cancelled, Urine Bilirubin Cancelled, Urine Urobilinogen Cancelled, Ur Leukocyte Esterase Cancelled 05/12/18 04:55: Lactic Acid 1.0 05/12/18 04:55: B-Natriuretic Peptide 40.6 Current Medications Acetaminophen (Tylenol) 650 mg PO Q4H PRN PRN PRN Reason: FEVER Last Admin: 05/12/18 05:01 Dose: 650 mg Albuterol Sulfate (Ventolin Aerosols) 2.5 mg INHALATION Q2H PRN PRN PRN Reason: SHORTNESS OF BREATH Albuterol/Ipratropium (Duoneb) 3 ml INHALATION Q6H.RT [facility] Last Admin: 05/12/18 07:06 Dose: 3 ml Amlodipine Besylate (Norvasc) 5 mg PO DAILY [facility] Aspirin (Aspirin, Baby) 81 mg PO DAILY@0800 [facility] Last Admin: 05/12/18 08:05 Dose: 81 mg Cholecalciferol (Vitamin D) 5,000 unit PO DAILY [facility] Enoxaparin Sodium (Lovenox) 40 mg SC DAILY@1000 [facility] Famotidine (Pepcid) 20 mg PO BID [facility] Last Admin: 05/11/18 22:31 Dose: 20 mg Guaifenesin (Mucinex) 1,200 mg PO BID [facility] Last Admin: 05/11/18 22:31 Dose: 1,200 mg Ciprofloxacin (Cipro) 400 mg in 200 mls @ 200 mls/hr IV Q8 [facility] Last Admin: 05/12/18 05:01 Dose: 200 mls/hr Piperacillin Sod/Tazobactam Sod (Zosyn) 3.375 gm in 50 mls @ 12.5 mls/hr IV Q8 [facility] Last Admin: 05/12/18 06:27 Dose: 12.5 mls/hr Lisinopril (Zestril) 20 mg PO BID [facility] Last Admin: 05/11/18 22:31 Dose: 20 mg Magnesium Hydroxide (Milk Of Magnesia) 30 ml PO DAILY PRN PRN Reason: Constipation Multivitamins (Multivitamin) 1 tablet PO DAILY@0800 [facility] Last Admin: 05/12/18 08:05 Dose: 1 tablet Nutritional Formula (Lactose Free) (Ensure Enlive) 120 ml PO 4X/DAY [facility] Last Admin: 05/11/18 22:30 Dose: 120 ml Ondansetron HCl (Zofran) 4 mg IV Q8H PRN PRN PRN Reason: NAUSEA Promethazine HCl (Phenergan Tablet) 25 mg PO Q6H PRN PRN Reason: NAUSEA Sodium Chloride () 5 - 30 ml IV UD PRN PRN Reason: SALINE FLUSH Last Admin: 05/12/18 03:58 Dose: 20 ml Zolpidem Tartrate (Ambien (Generic)) 5 mg PO QHS PRN PRN PRN Reason: SLEEP Last Admin: 05/11/18 22:31 Dose: 5 mg Medical Necessity - Tobacco Use Smoking Status: Former smoker Assessment/Plan All Active Problems Pneumonia (Acute) Patient is a 73-year-old gentleman who underwent exploratory laparotomy on account of strangulated hernia on 04/21/2018 at [facility] presents with progressive generalized weakness 1. Healthcare acquired pneumonia: Suspected to negative organisms. Patient is admitted to regular floor. Blood and sputum cultures sent. Patient placed on Zosyn as well as ciprofloxacin in addition to oxygen titrated to keep oxygen saturation greater than 90. Also did order for incentive spirometry 2. Suspected acute diastolic congestive heart failure patient started on Lasix echo ordered for EF assessment 3. Recent exploratory laparotomy on account of strangulated hernia at [facility] patient wound appears clean dry and intact consult was placed to wound care nurse to use wound care 4. Dyslipidemia patient is on gemfibrozil 5. Hypertension-blood pressure controlled, home medications continued with dose adjustment as needed 6. Adult failure to thrive: Requested for PT OT eval and social service agency director to assist with discharge planning 7. DVT prophylaxis SC Lovenox Advance planning; did discuss with the patient and family regarding her advanced directives as well as CODE STATUS. Did explain the various modalities involved ( FULL CODE, DNR CCA, DNR CCA with no intubation, and DNR CC ) patient elected to be full code. Order was placed. Time spent on discussion 16 minutes. Active Medications Acetaminophen (Tylenol) 650 mg PO Q4H PRN PRN PRN Reason: FEVER Last Admin: 05/12/18 05:01 Dose: 650 mg Albuterol Sulfate (Ventolin Aerosols) 2.5 mg INHALATION Q2H PRN PRN PRN Reason: SHORTNESS OF BREATH Albuterol/Ipratropium (Duoneb) 3 ml INHALATION Q6H.RT [facility] Last Admin: 05/12/18 07:06 Dose: 3 ml Amlodipine Besylate (Norvasc) 5 mg PO DAILY [facility] Aspirin (Aspirin, Baby) 81 mg PO DAILY@0800 [facility] Last Admin: 05/12/18 08:05 Dose: 81 mg Cholecalciferol (Vitamin D) 5,000 unit PO DAILY [facility] Enoxaparin Sodium (Lovenox) 40 mg SC DAILY@1000 [facility] Famotidine (Pepcid) 20 mg PO BID [facility] Last Admin: 05/11/18 22:31 Dose: 20 mg Guaifenesin (Mucinex) 1,200 mg PO BID [facility] Last Admin: 05/11/18 22:31 Dose: 1,200 mg Ciprofloxacin (Cipro) 400 mg in 200 mls @ 200 mls/hr IV Q8 [facility] Last Admin: 05/12/18 05:01 Dose: 200 mls/hr Piperacillin Sod/Tazobactam Sod (Zosyn) 3.375 gm in 50 mls @ 12.5 mls/hr IV Q8 [facility] Last Admin: 05/12/18 06:27 Dose: 12.5 mls/hr Lisinopril (Zestril) 20 mg PO BID [facility] Last Admin: 05/11/18 22:31 Dose: 20 mg Magnesium Hydroxide (Milk Of Magnesia) 30 ml PO DAILY PRN PRN Reason: Constipation Multivitamins (Multivitamin) 1 tablet PO DAILY@0800 [facility] Last Admin: 05/12/18 08:05 Dose: 1 tablet Nutritional Formula (Lactose Free) (Ensure Enlive) 120 ml PO 4X/DAY [facility] Last Admin: 05/11/18 22:30 Dose: 120 ml Ondansetron HCl (Zofran) 4 mg IV Q8H PRN PRN PRN Reason: NAUSEA Promethazine HCl (Phenergan Tablet) 25 mg PO Q6H PRN PRN Reason: NAUSEA Sodium Chloride () 5 - 30 ml IV UD PRN PRN Reason: SALINE FLUSH Last Admin: 05/12/18 03:58 Dose: 20 ml Zolpidem Tartrate (Ambien (Generic)) 5 mg PO QHS PRN PRN PRN Reason: SLEEP Last Admin: 05/11/18 22:31 Dose: 5 mg Code Visit Inpatient E&M: 21916 [facility] Hosp L3
[2018-05-12 09:36] LABS: Anion Gap 10 (5-15); BUN 12 mg/dL (7-18); BUN/Creat Ratio 15.6 RATIO (10-20); Calcium,Total 8.1 mg/dL (8.5-10.1); Chloride 96 mmol/L (98-107); Creatinine, Serum 0.77 mg/dL (0.70-1.30); EST Glomerular Filtration Rate 106 mL/min (>60); Est Glom Filt Rate - Afr Amer 129 mL/min (>60); Estimated Creatinine Clearance 78.78 ml/min; Glucose 106 mg/dL (74-106); Magnesium 1.7 mg/dL (1.6-2.6); Potassium 4.2 mmol/L (3.5-5.1); Sodium Level 130 mmol/L (136-145)
--- NOTE | 2018-05-12 10:25 | CASEMGMT ---
DEVON DARBY assessment: Face to Face with patient for initial transition planning/care coordination assessment. RN WILNER introduced self and role at [facility], pt voices understanding and consents to assessment at this time. Pt is lying in bed in no distress at this time. Pt is A/Ox4 at this time and answers all questions appropriately. Care providers, pharmacy, and demographics verified/updated at this time. PCP: [facility] Specialists: Pt states currently has no specialists. Preferred Pharmacy: [facility] Insurance: [facility] Prescription Benefit: [facility] Living Will/HPOA: Pt states does not have LW/HPOA and is not interested in info at this time. LNOK: [place], brother Living Arrangements: Pt states is currently living with his borther and family and states no concerns at home at this time. Transportation: Pt states has not driven since his hernia surgery and states no transportation concerns at this time. DME/HHC: Pt has a cane and walker and states no need for any further DME at this time. Pt states is current with [facility] for RN at this time. Pt states has never been to SNF in the past. Pt states no concerns with going home at time of discharge. Pt is concerned about getting his dressing changed. Dr. Hyde aware and put order in for nursing to change dressing for pt at this time. Advised pt to ask for CM if any further questions/concerns/needs arise, voices understanding. Plan: Home w/ resump of [facility] SStaten DEVON DARBY
[2018-05-12] MEDS: Furosemide 40 MG Tablet PO ×2 (10:39→18:46)
[2018-05-12] MEDS: Enoxaparin 40 MG/0.4 ML Syringe SC (10:40)
[2018-05-12] MEDS: guaiFENesin 1,200 MG Tablet 1200 MG PO ×2 (10:40→20:52)
[2018-05-12] MEDS: Famotidine 20 MG Tablet PO ×2 (10:40→20:52)
[2018-05-12] MEDS: amLODIPine 5 MG Tablet PO (10:40)
[2018-05-12] MEDS: Lisinopril 20 MG Tablet PO ×2 (10:41→20:52)
--- NOTE | 2018-05-12 11:10 | CASEMGMT ---
[facility] notified pt is admitted at this time and states pt is currently active for RN. Green sheet on chart and resumption of care order placed at this time. SStaten RN CM
[2018-05-13] VITALS (9 sets, daily range): BP systolic 103–134; BP diastolic 55–80; PULSE 90–104; RESP 18–24; TEMP 36.6–37.7; O2SAT 92–94
[2018-05-13 04:55] LABS: Hematocrit 28.9 % (40-54); Hemoglobin 9.5 g/dl (13.0-16.5); Mean Corp Hgb Conc 32.9 g/gl (32-36); Mean Corpuscular Hgb 30.3 pg (27.0-32.0); Mean Platelet Vol. 9.5 fl (6.2-12.0); Platelet Count 441 K/mm3 (150-450); RBC Distribution Width CV 13.9 % (11.6-14.6); RBC Distribution Width SD 45.2 fl (35.1-43.9); Red Blood Count 3.14 M/mm3 (4.6-6.2); White Blood Count 8.1 K/mm3 (4.4-11.0)
[2018-05-13 04:57] LABS: Scan Indicated on CBC? Y/N NO
[2018-05-13] MEDS: Ciprofloxacin 400 MG/200 ML BAG 200 MG IV ×3 (05:05→21:43)
[2018-05-13 05:13] LABS: Anion Gap 11 (5-15); BUN 10 mg/dL (7-18); BUN/Creat Ratio 12.2 RATIO (10-20); Calcium,Total 7.8 mg/dL (8.5-10.1); Chloride 94 mmol/L (98-107); Creatinine, Serum 0.82 mg/dL (0.70-1.30); EST Glomerular Filtration Rate 99 mL/min (>60); Est Glom Filt Rate - Afr Amer 119 mL/min (>60); Estimated Creatinine Clearance 96.07 ml/min; Glucose 97 mg/dL (74-106); Potassium 3.7 mmol/L (3.5-5.1); Sodium Level 132 mmol/L (136-145)
[2018-05-13] MEDS: Piperacil/Tazobactam 3.375 GM/50 ML ML IV ×3 (06:26→22:53)
[2018-05-13] MEDS: Ipratropium/Albuterol Sulfate 3 ML AMPUL.NEB INHALATION ×3 (07:03→19:20)
--- NOTE | 2018-05-13 07:43 | PCM.PN.HOSP ---
Patient Problems: Active and Suspected Problems Pneumonia (Acute) Subjective: Chest x-ray obtained as part of patient's evaluation demonstrated large right-sided pleural effusion. Patient currently on Lasix ordered ultrasound-guided thoracocentesis to be performed on 05/14/2018 (both diagnostic as well as therapeutic) patient's hemoglobin down to 9.5 however does not meet criteria for blood transfusion. Objective: GENERAL: Patient appears ill looking HEENT: Atraumatic; moist oral mucosa EYES; Anicteric, Normal Conjunctiva NECK; supple, normal thyroid, no distended JVD. RESPIRATORY: Diminished to auscultation bilaterally, bibasilar Rales CARDIOVASCULAR: Regular S1 S2, no audible murmurs GI: soft, non-tender, abdominal incision well-healed : No Renal angle tenderness; EXTREMITIES: No edema, no clubbing, no cyanosis. MUSCULOSKELETAL: No Joint Tenderness; no muscle waisting NEURO: Awake; no lateralizing signs. SKIN: No Rash PSYCH; Flat affect Vitals/I&O's: Vital Signs Temp Pulse Resp BP Pulse Ox 99.8 F H 94 18 111/63 94 05/13/18 05:00 05/13/18 05:00 05/13/18 05:00 05/13/18 05:00 05/13/18 05:00 Oxygen Flow Rate (L/min) 3 Oxygen Delivery Method Nasal Cannula Weight: 103.8 kg Body Mass Index (BMI) 29.3 Intake and Output for Last 24 Hours 05/11/18 05/12/18 05/13/18 23:59 23:59 23:59 Intake Total 806 / 806 2356 / 2356 842 / 842 Output Total 400 / 400 4700 / 4700 1150 / 1150 Balance 406 / 406 -2344 / -2344 -308 / -308 Microbiology Past 72 Hours 05/11/18 17:20 Sputum, Expectorated/Coughed Gram Stain - Final 05/11/18 19:30 Mucosa - Nasopharyngeal Influenza Types A,B Direct FA (KELL) - Final 05/11/18 16:49 Urine, Clean Catch Streptococcus pneumoniae Antigen (M - Final 05/11/18 16:49 Urine, Clean Catch Legionella Antigen - Final Laboratory Results 05/12/18 04:55: WBC 8.3, RBC 3.23 L, Hgb 9.7 L, Hct 29.5 L, MCV 91.3, MCH 30.0, MCHC 32.9, RDW 14.2, RDW Differential 47.6 H, Plt Count 467 H, MPV 9.4 05/12/18 04:55: Sodium 130 L, Potassium 4.2, Chloride 96 L, Carbon Dioxide 24.0, Anion Gap 10, BUN 12, Creatinine 0.77, Estim Creat Clear Calc 78.78, Est GFR (MDRD) Af Amer 129, Est GFR (MDRD) Non-Af 106, BUN/Creatinine Ratio 15.6, Glucose 106, Calcium 8.1 L, Magnesium 1.7 05/13/18 04:20: WBC 8.1, RBC 3.14 L, Hgb 9.5 L, Hct 28.9 L, MCV 92.0, MCH 30.3, MCHC 32.9, RDW 13.9, RDW Differential 45.2 H, Plt Count 441, MPV 9.5 05/13/18 04:20: Sodium 132 L, Potassium 3.7, Chloride 94 L, Carbon Dioxide 27.0, Anion Gap 11, BUN 10, Creatinine 0.82, Estim Creat Clear Calc 96.07, Est GFR (MDRD) Af Amer 119, Est GFR (MDRD) Non-Af 99, BUN/Creatinine Ratio 12.2, Glucose 97, Calcium 7.8 L Current Medications Acetaminophen (Tylenol) 650 mg PO Q4H PRN PRN PRN Reason: FEVER Last Admin: 05/12/18 05:01 Dose: 650 mg Albuterol Sulfate (Ventolin Aerosols) 2.5 mg INHALATION Q2H PRN PRN PRN Reason: SHORTNESS OF BREATH Albuterol/Ipratropium (Duoneb) 3 ml INHALATION Q6H.RT [facility] Last Admin: 05/13/18 07:03 Dose: 3 ml Amlodipine Besylate (Norvasc) 5 mg PO DAILY [facility] Last Admin: 05/12/18 10:40 Dose: 5 mg Aspirin (Aspirin, Baby) 81 mg PO DAILY@0800 [facility] Last Admin: 05/12/18 08:05 Dose: 81 mg Cholecalciferol (Vitamin D) 5,000 unit PO DAILY [facility] Last Admin: 05/12/18 10:41 Dose: 5,000 unit Enoxaparin Sodium (Lovenox) 40 mg SC DAILY@1000 [facility] Last Admin: 05/12/18 10:40 Dose: 40 mg Famotidine (Pepcid) 20 mg PO BID [facility] Last Admin: 05/12/18 20:52 Dose: 20 mg Furosemide (Lasix) 40 mg PO BID@1000,1800 [facility] Last Admin: 05/12/18 18:46 Dose: 40 mg Guaifenesin (Mucinex) 1,200 mg PO BID [facility] Last Admin: 05/12/18 20:52 Dose: 1,200 mg Ciprofloxacin (Cipro) 400 mg in 200 mls @ 200 mls/hr IV Q8 [facility] Last Admin: 05/13/18 05:05 Dose: 200 mls/hr Piperacillin Sod/Tazobactam Sod (Zosyn) 3.375 gm in 50 mls @ 12.5 mls/hr IV Q8 [facility] Last Admin: 05/13/18 06:26 Dose: 12.5 mls/hr Lisinopril (Zestril) 20 mg PO BID [facility] Last Admin: 05/12/18 20:52 Dose: 20 mg Magnesium Hydroxide (Milk Of Magnesia) 30 ml PO DAILY PRN PRN Reason: Constipation Multivitamins (Multivitamin) 1 tablet PO DAILY@0800 [facility] Last Admin: 05/12/18 08:05 Dose: 1 tablet Nutritional Formula (Lactose Free) (Ensure Enlive) 120 ml PO 4X/DAY [facility] Last Admin: 05/12/18 20:49 Dose: Not Given Ondansetron HCl (Zofran) 4 mg IV Q8H PRN PRN PRN Reason: NAUSEA Promethazine HCl (Phenergan Tablet) 25 mg PO Q6H PRN PRN Reason: NAUSEA Sodium Chloride () 5 - 30 ml IV UD PRN PRN Reason: SALINE FLUSH Last Admin: 05/12/18 03:58 Dose: 20 ml Zolpidem Tartrate (Ambien (Generic)) 5 mg PO QHS PRN PRN PRN Reason: SLEEP Last Admin: 05/11/18 22:31 Dose: 5 mg Medical Necessity - Tobacco Use Smoking Status: Former smoker Assessment/Plan All Active Problems Pneumonia (Acute) Patient is a 73-year-old gentleman who underwent exploratory laparotomy on account of strangulated hernia on 04/21/2018 at [facility] presents with progressive generalized weakness 1. Healthcare acquired pneumonia: Suspected to negative organisms. Patient is admitted to regular floor. Blood and sputum cultures sent. Patient placed on Zosyn as well as ciprofloxacin in addition to oxygen titrated to keep oxygen saturation greater than 90. Also did order for incentive spirometry 2. Acute diastolic congestive heart failure patient started on Lasix echo ordered for EF assessment echo demonstrated ejection fraction of 65%. 3. Recent exploratory laparotomy on account of strangulated hernia at [facility] patient wound appears clean dry and intact consult was placed to wound care nurse to use wound care 4. Dyslipidemia patient is on gemfibrozil 5. Hypertension-blood pressure controlled, home medications continued with dose adjustment as needed 6. Adult failure to thrive: Requested for PT OT eval and vp digital marketing social media and crm to assist with discharge planning 7. DVT prophylaxis SC Lovenox 8. Large right-sided pleural effusion possibly parapneumonic versus transudate effusion from CHF. Did request ultrasound-guided thoracocentesis both diagnostic and therapeutic to be performed on 05/14/2018 9. Anemia secondary to anemia of chronic disorder monitoring H&H with plan to transfuse if patient becomes symptomatically hemoglobin falls below 7. Code Visit Inpatient E&M: 04080 [facility] Hosp L3
[2018-05-13] MEDS: Aspirin 81 MG TAB.CHEW PO (07:56)
[2018-05-13] MEDS: Multivitamins,Therapeutic Tablet 1 TABLET PO (07:56)
[2018-05-13] MEDS: Enoxaparin 40 MG/0.4 ML Syringe SC (10:59)
[2018-05-13] MEDS: Famotidine 20 MG Tablet PO ×2 (10:59→21:43)
[2018-05-13] MEDS: amLODIPine 5 MG Tablet PO (10:59)
[2018-05-13] MEDS: Furosemide 40 MG Tablet PO ×2 (10:59→18:28)
[2018-05-13] MEDS: Lisinopril 20 MG Tablet PO ×2 (10:59→21:43)
[2018-05-13] MEDS: guaiFENesin 1,200 MG Tablet 1200 MG PO ×2 (11:00→21:43)
[2018-05-13] MEDS: Acetaminophen 325 MG Tablet 650 MG PO (20:33)
[2018-05-14] VITALS (18 sets, daily range): BP systolic 82–127; BP diastolic 39–66; PULSE 84–103; RESP 16–20; TEMP 36.6–37.8; O2SAT 93–97; BMI 29.3
--- NOTE | 2018-05-14 | FLU_PTH ---
PATIENT: ZENA COTE LOC: MS2 U#:[id number] AGE/SX: 73/M ROOM: MS212 RE05/11/[address]: Dr. Jose Tovar DO : 1945 BED: 1 DIS: 05/16/2018 SPEC #: [id number] RECD: 05/14/18 14:08 STATUS: LILIANA RETwyla #: [id number] DELFIN: 05/14/18 00:[address]: Jose Tovar DEPT: CYTOLOGY RECD BY: Carl Andrews ENTERED: 05/14/18 14:09 SP TYPE: Fluid OTHR DR: MD Dr. Swetha Bernal DO Tissues: THORACIC FLUID Procedures: Pap Stain (control) Special Stain Group II Surgery Specimen Level IV Cell Block Cytospin Fluid HEADER OPERATION: Ultrasound-guided right thoracentesis PRE-OP DIAGNOSIS: Right pleural effusion TISSUE SUBMITTED: Thoracentesis fluid for cytology DIAGNOSIS CYTOLOGY Thoracentesis fluid for cytology (cytospin and cell block): Negative for malignant cells. See cytology study and comment. SJ:rg 05/15/18 COMMENT Clinical correlation and appropriate follow up are necessary. CYTOLOGY STUDY Slides are reviewed. The specimen consists of macrophages, mesothelial cells and inflammatory cells. CYTOLOGY GROSS Received is 60 ml of cloudy weston fluid labeled with the patient's name and and designated per the requisition as right thoracentesis. Submitted for cytology preparation including cell block. 05/14/18 TC:5 CPT: 18111, 60576
[2018-05-14] MEDS: Acetaminophen 325 MG Tablet 650 MG PO ×2 (05:14→12:15)
[2018-05-14] MEDS: Ciprofloxacin 400 MG/200 ML BAG 200 MG IV ×2 (05:14→13:04)
[2018-05-14] MEDS: Piperacil/Tazobactam 3.375 GM/50 ML ML IV ×2 (06:45→13:04)
[2018-05-14 06:54] LABS: Hematocrit 30.5 % (40-54); Hemoglobin 9.8 g/dl (13.0-16.5); Mean Corp Hgb Conc 32.1 g/gl (32-36); Mean Corpuscular Hgb 29.3 pg (27.0-32.0); Mean Platelet Vol. 8.9 fl (6.2-12.0); Platelet Count 412 K/mm3 (150-450); RBC Distribution Width CV 14.3 % (11.6-14.6); RBC Distribution Width SD 47.5 fl (35.1-43.9); Red Blood Count 3.35 M/mm3 (4.6-6.2); White Blood Count 6.8 K/mm3 (4.4-11.0)
[2018-05-14 07:00] LABS: Scan Indicated on CBC? Y/N NO
[2018-05-14] MEDS: Ipratropium/Albuterol Sulfate 3 ML AMPUL.NEB INHALATION (07:24)
--- NOTE | 2018-05-14 07:41 | US_ITS ---
PROCEDURE: ULTRASOUND GUIDED THORACENTESIS. DATE: May 14, 2018. INDICATION: Male, 73 years old. Right pleural effusion. PHYSICIAN: Iván Paige M.D. PROCEDURE: The risks, benefits, and alternatives to the procedure were explained to the patient. The specific risks of bleeding, infection, and pneumothorax requiring chest tube insertion were discussed and accepted. Written informed consent was obtained. Ultrasonographic evaluation of the right lower pleural space was carried out. An adequate pocket was identified. The patient was placed in the sitting, upright position. The overlying skin was prepped and draped in sterile fashion. 1% lidocaine was administered subcutaneously for local anesthesia. Under ultrasound guidance, a 5 Latvian thoracentesis needle/catheter system was advanced into the right posterior lower pleural fluid collection. Approximately 1420 mL of weston-colored fluid was drained. The catheter was removed, and a sterile dressing was applied. A specimen was collected and sent to the laboratory for analysis, as requested by the referring clinician. The patient tolerated the procedure well. A chest x-ray was ordered. US/Thoracentesis W US IMPRESSION: Ultrasound-guided right thoracentesis. Electronically Signed: Iván Paige MD at 12:53 EDT Tel [phone], Service support ,
--- NOTE | 2018-05-14 08:31 | NURSING ---
wound photo: mid abdomen
--- NOTE | 2018-05-14 08:32 | NURSING ---
wound photo: right lower abdominal fold
[2018-05-14 08:37] LABS: International Normalized Ratio 1.2; Partial Thromboplast Time 42.2 Seconds (24.1-36.2); Prothrombin Time (Protime)PT. 15.3 SECONDS (11.7-14.9)
[2018-05-14 08:43] LABS: ALB/GLOB Ratio 0.5 RATIO (0.9-2.4); Anion Gap 10 (5-15); BUN 12 mg/dL (7-18); BUN/Creat Ratio 11.2 RATIO (10-20); Calcium,Total 8.5 mg/dL (8.5-10.1); Chloride 92 mmol/L (98-107); Creatinine, Serum 1.07 mg/dL (0.70-1.30); EST Glomerular Filtration Rate 72 mL/min (>60); Est Glom Filt Rate - Afr Amer 88 mL/min (>60); Estimated Creatinine Clearance 73.62 ml/min; Globulin 4.3 g/dL (2.2-4.2); Glucose 126 mg/dL (74-106); LDH 197 U/L (87-241); Potassium 3.5 mmol/L (3.5-5.1); Protein, Total 6.5 g/dL (6.4-8.2); Sodium Level 131 mmol/L (136-145)
--- NOTE | 2018-05-14 09:06 | NURSING ---
Called talked with patients nurse Kizzy to confirm she will hold the baby asprin and Lovenox for the thoracentesis, encourage her to check with attending to when to restart.
--- NOTE | 2018-05-14 10:15 | RAD_ITS ---
STUDY: X-RAY CHEST REASON FOR EXAM: Male, 73 years old. Status post right thoracentesis. TECHNIQUE: AP inspiration and expiration views. COMPARISON: Comparison is made with prior study dated May 12, 2018. FINDINGS: The patient is status post right thoracentesis. There is no evidence of pneumothorax. Mild increased markings at the lung bases suggesting bibasilar atelectasis. RAD/Chest Insp/Exp 2 View IMPRESSION: Status post right thoracentesis. No evidence of pneumothorax. Findings suggestive of mild bibasilar linear atelectasis. Electronically Signed: Iván Paige MD at 13:48 EDT Tel [phone], Service support ,
--- NOTE | 2018-05-14 10:34 | PCM.PN.HOSP ---
Patient Problems: Active and Suspected Problems Pneumonia (Acute) Subjective: breathing better. coughing, but non-productive. decreased LE edema. Vitals/I&O's: Vital Signs Temp Pulse Resp BP Pulse Ox 36.6 C 94 18 97/54 L 93 05/14/18 08:56 05/14/18 08:57 05/14/18 08:56 05/14/18 08:56 05/14/18 08:56 Oxygen Flow Rate (L/min) 2 Oxygen Delivery Method Nasal Cannula Weight: 103.8 kg Body Mass Index (BMI) 29.3 Intake and Output for Last 24 Hours 05/12/18 05/13/18 05/14/18 23:59 23:59 23:59 Intake Total 2356 / 2356 2205 / 2205 719 / 719 Output Total 4700 / 4700 1850 / 1850 925 / 925 Balance -2344 / -2344 355 / 355 -206 / -206 General: Alert, No apparent distress HEENT: Atraumatic, Normocephalic Oral: Moist Mucosa, No Gingival or Mucosal Lesions/ Ulcerations Neck: No Nodes, Thyroid Normal Size and Texture Lungs: Clear to auscultation, Normal air movement, No rhonchi, No wheeze, - - no dullness to precussion. Cardiovascular: Regular rate, Regular Rhythm, Normal S1, Normal S2, No murmurs, - Abdomen: Bowel Sounds Present, Soft, Non Tender, Non-Distended, No Hepato-splenomegaly Extremities: No clubbing, No edema, No Calf Tenderness Skin: No rashes, No breakdown Musculoskeletal: No Tenderness to Palpation of Joints or Extremities, No Muscle Wasting Neurological: Sensory exam intact to light touch and pain, Coordination normal Psych/Mental Status: Normal Affect, Appropriate Microbiology Past 72 Hours 05/11/18 17:20 Sputum, Expectorated/Coughed Gram Stain - Final 05/11/18 17:20 Sputum, Expectorated/Coughed Respiratory Culture - Final 05/11/18 16:20 Blood Culture (Wb) - Anticubital Right Blood Culture - Preliminary No growth in 48 hours. 05/11/18 16:08 Blood Culture (Wb) - Anticubital Right Blood Culture - Preliminary No growth in 48 hours. 05/11/18 19:30 Mucosa - Nasopharyngeal Influenza Types A,B Direct FA (KELL) - Final 05/11/18 16:49 Urine, Clean Catch Streptococcus pneumoniae Antigen (M - Final 05/11/18 16:49 Urine, Clean Catch Legionella Antigen - Final Laboratory Results 05/14/18 06:40: WBC 6.8, RBC 3.35 L, Hgb 9.8 L, Hct 30.5 L, MCV 91.0, MCH 29.3, MCHC 32.1, RDW 14.3, RDW Differential 47.5 H, Plt Count 412, MPV 8.9 05/14/18 08:20: Sodium 131 L, Potassium 3.5, Chloride 92 L, Carbon Dioxide 29.0, Anion Gap 10, BUN 12, Creatinine 1.07, Estim Creat Clear Calc 73.62, Est GFR (MDRD) Af Amer 88, Est GFR (MDRD) Non-Af 72, BUN/Creatinine Ratio 11.2, Glucose 126 H, Calcium 8.5, Lactate Dehydrogenase 197, Total Protein 6.5, Globulin 4.3 H, Albumin/Globulin Ratio 0.5 L 05/14/18 08:20: PT 15.3 H, INR 1.2, APTT 42.2 H Current Medications Acetaminophen (Tylenol) 650 mg PO Q4H PRN PRN PRN Reason: FEVER Last Admin: 05/14/18 05:14 Dose: 650 mg Albuterol Sulfate (Ventolin Aerosols) 2.5 mg INHALATION Q2H PRN PRN PRN Reason: SHORTNESS OF BREATH Albuterol/Ipratropium (Duoneb) 3 ml INHALATION Q6H.RT [facility] Last Admin: 05/14/18 07:24 Dose: 3 ml Amlodipine Besylate (Norvasc) 5 mg PO DAILY [facility] Last Admin: 05/13/18 10:59 Dose: 5 mg Aspirin (Aspirin, Baby) 81 mg PO DAILY@0800 [facility] Last Admin: 05/13/18 07:56 Dose: 81 mg Cholecalciferol (Vitamin D) 5,000 unit PO DAILY [facility] Last Admin: 05/13/18 10:59 Dose: 5,000 unit Enoxaparin Sodium (Lovenox) 40 mg SC DAILY@1000 [facility] Last Admin: 05/13/18 10:59 Dose: 40 mg Famotidine (Pepcid) 20 mg PO BID [facility] Last Admin: 05/13/18 21:43 Dose: 20 mg Furosemide (Lasix) 40 mg PO BID@1000,1800 [facility] Last Admin: 05/13/18 18:28 Dose: 40 mg Guaifenesin (Mucinex) 1,200 mg PO BID [facility] Last Admin: 05/13/18 21:43 Dose: 1,200 mg Ciprofloxacin (Cipro) 400 mg in 200 mls @ 200 mls/hr IV Q8 [facility] Last Admin: 05/14/18 05:14 Dose: 200 mls/hr Piperacillin Sod/Tazobactam Sod (Zosyn) 3.375 gm in 50 mls @ 12.5 mls/hr IV Q8 [facility] Last Admin: 05/14/18 06:45 Dose: 12.5 mls/hr Lisinopril (Zestril) 20 mg PO BID [facility] Last Admin: 05/13/18 21:43 Dose: 20 mg Magnesium Hydroxide (Milk Of Magnesia) 30 ml PO DAILY PRN PRN Reason: Constipation Multivitamins (Multivitamin) 1 tablet PO DAILY@0800 [facility] Last Admin: 05/13/18 07:56 Dose: 1 tablet Nutritional Formula (Lactose Free) (Ensure Enlive) 120 ml PO 4X/DAY [facility] Last Admin: 05/13/18 21:42 Dose: Not Given Ondansetron HCl (Zofran) 4 mg IV Q8H PRN PRN PRN Reason: NAUSEA Promethazine HCl (Phenergan Tablet) 25 mg PO Q6H PRN PRN Reason: NAUSEA Sodium Chloride () 5 - 30 ml IV UD PRN PRN Reason: SALINE FLUSH Last Admin: 05/12/18 03:58 Dose: 20 ml Zolpidem Tartrate (Ambien (Generic)) 5 mg PO QHS PRN PRN PRN Reason: SLEEP Last Admin: 05/11/18 22:31 Dose: 5 mg Medical Necessity - Tobacco Use Smoking Status: Former smoker Assessment/Plan All Active Problems Pneumonia (Acute) 1. 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 I suspect patient received a lot of fluids during his 12 day stay at [facility], which at one point he was in the ICU ([facility] unable to be accessed at this time) Continue with lasix, lisinopril check records from [facility] 2. Presumed gram-negative pnuemoniqa work up here has been unremarkable culture results have been negative on Cipro and Zosyn no leukocytosis did have a low-grade temps 3. Pleural effusion suspect transudative underwent thoracentesis 05/14 results pending. 4. s/p Ventral hernia repair per patient, the surgeon said it was more complicated than he anticipated. per wound care pictures: wound healing well. 5. DVT proph: LMWH. Code Visit Inpatient E&M: 43532 Subs Hosp L3
--- NOTE | 2018-05-14 10:45 | PN_ITS ---
Patient Problems: Active and Suspected Problems Pneumonia (Acute) Subjective: breathing better. coughing, but non-productive. decreased LE edema. Vitals/I&O's: Vital Signs Temp Pulse Resp BP Pulse Ox 36.6 C 94 18 97/54 L 93 05/14/18 08:56 05/14/18 08:57 05/14/18 08:56 05/14/18 08:56 05/14/18 08:56 Oxygen Flow Rate (L/min) 2 Oxygen Delivery Method Nasal Cannula Weight: 103.8 kg Body Mass Index (BMI) 29.3 Intake and Output for Last 24 Hours 05/12/18 05/13/18 05/14/18 23:59 23:59 23:59 Intake Total 2356 / 2356 2205 / 2205 719 / 719 Output Total 4700 / 4700 1850 / 1850 925 / 925 Balance -2344 / -2344 355 / 355 -206 / -206 General: Alert, No apparent distress HEENT: Atraumatic, Normocephalic Oral: Moist Mucosa, No Gingival or Mucosal Lesions/ Ulcerations Neck: No Nodes, Thyroid Normal Size and Texture Lungs: Clear to auscultation, Normal air movement, No rhonchi, No wheeze, - - no dullness to precussion. Cardiovascular: Regular rate, Regular Rhythm, Normal S1, Normal S2, No murmurs, - Abdomen: Bowel Sounds Present, Soft, Non Tender, Non-Distended, No Hepato-spl enomegaly Extremities: No clubbing, No edema, No Calf Tenderness Skin: No rashes, No breakdown Musculoskeletal: No Tenderness to Palpation of Joints or Extremities, No Muscle Wasting Neurological: Sensory exam intact to light touch and pain, Coordination normal Psych/Mental Status: Normal Affect, Appropriate Microbiology Past 72 Hours 05/11/18 17:20 Sputum, Expectorated/Coughed Gram Stain - Final 05/11/18 17:20 Sputum, Expectorated/Coughed Respiratory Culture - Final 05/11/18 16:20 Blood Culture (Wb) - Anticubital Right Blood Culture - Preliminary No growth in 48 hours. 05/11/18 16:08 Blood Culture (Wb) - Anticubital Right Blood Culture - Preliminary No growth in 48 hours. 05/11/18 19:30 Mucosa - Nasopharyngeal Influenza Types A,B Direct FA (KELL) - Final 05/11/18 16:49 Urine, Clean Catch Streptococcus pneumoniae Antigen (M - Final 05/11/18 16:49 Urine, Clean Catch Legionella Antigen - Final Laboratory Results 05/14/18 06:40: WBC 6.8, RBC 3.35 L, Hgb 9.8 L, Hct 30.5 L, MCV 91.0, MCH 29.3, MCHC 32.1, RDW 14.3, RDW Differential 47.5 H, Plt Count 412, MPV 8.9 05/14/18 08:20: Sodium 131 L, Potassium 3.5, Chloride 92 L, Carbon Dioxide 29.0, Anion Gap 10, BUN 12, Creatinine 1.07, Estim Creat Clear Calc 73.62, Est GFR (MDRD) Af Amer 88, Est GFR (MDRD) Non-Af 72, BUN/Creatinine Ratio 11.2, Glucose 126 H, Calcium 8.5, Lactate Dehydrogenase 197, Total Protein 6.5, Globulin 4.3 H , Albumin/Globulin Ratio 0.5 L 05/14/18 08:20: PT 15.3 H, INR 1.2, APTT 42.2 H Current Medications Acetaminophen (Tylenol) 650 mg PO Q4H PRN PRN PRN Reason: FEVER Last Admin: 05/14/18 05:14 Dose: 650 mg Albuterol Sulfate (Ventolin Aerosols) 2.5 mg INHALATION Q2H PRN PRN PRN Reason: SHORTNESS OF BREATH Albuterol/Ipratropium (Duoneb) 3 ml INHALATION Q6H.RT [facility] Last Admin: 05/14/18 07:24 Dose: 3 ml Amlodipine Besylate (Norvasc) 5 mg PO DAILY [facility] Last Admin: 05/13/18 10:59 Dose: 5 mg Aspirin (Aspirin, Baby) 81 mg PO DAILY@0800 [facility] Last Admin: 05/13/18 07:56 Dose: 81 mg Cholecalciferol (Vitamin D) 5,000 unit PO DAILY [facility] Last Admin: 05/13/18 10:59 Dose: 5,000 unit Enoxaparin Sodium (Lovenox) 40 mg SC DAILY@1000 [facility] Last Admin: 05/13/18 10:59 Dose: 40 mg Famotidine (Pepcid) 20 mg PO BID [facility] Last Admin: 05/13/18 21:43 Dose: 20 mg Furosemide (Lasix) 40 mg PO BID@1000,1800 [facility] Last Admin: 05/13/18 18:28 Dose: 40 mg Guaifenesin (Mucinex) 1,200 mg PO BID [facility] Last Admin: 05/13/18 21:43 Dose: 1,200 mg Ciprofloxacin (Cipro) 400 mg in 200 mls @ 200 mls/hr IV Q8 [facility] Last Admin: 05/14/18 05:14 Dose: 200 mls/hr Piperacillin Sod/Tazobactam Sod (Zosyn) 3.375 gm in 50 mls @ 12.5 mls/hr IV Q8 [facility] Last Admin: 05/14/18 06:45 Dose: 12.5 mls/hr Lisinopril (Zestril) 20 mg PO BID [facility] Last Admin: 05/13/18 21:43 Dose: 20 mg Magnesium Hydroxide (Milk Of Magnesia) 30 ml PO DAILY PRN PRN Reason: Constipation Multivitamins (Multivitamin) 1 tablet PO DAILY@0800 [facility] Last Admin: 05/13/18 07:56 Dose: 1 tablet Nutritional Formula (Lactose Free) (Ensure Enlive) 120 ml PO 4X/DAY [facility] Last Admin: 05/13/18 21:42 Dose: Not Given Ondansetron HCl (Zofran) 4 mg IV Q8H PRN PRN PRN Reason: NAUSEA Promethazine HCl (Phenergan Tablet) 25 mg PO Q6H PRN PRN Reason: NAUSEA Sodium Chloride () 5 - 30 ml IV UD PRN PRN Reason: SALINE FLUSH Last Admin: 05/12/18 03:58 Dose: 20 ml Zolpidem Tartrate (Ambien (Generic)) 5 mg PO QHS PRN PRN PRN Reason: SLEEP Last Admin: 05/11/18 22:31 Dose: 5 mg Medical Necessity - Tobacco Use Smoking Status: Former smoker Assessment/Plan All Active Problems Pneumonia (Acute) 1. acute HFpEF * EF 65% * has diuresed well since he has been here, though his weights do not reflect it. * I suspect patient received a lot of fluids during his 12 day stay at [facility], which at one point he was in the ICU ([facility] unable to be accessed at this time) * Continue with lasix, lisinopril * check records from [facility] 2. Presumed gram-negative pnuemoniqa * work up here has been unremarkable * culture results have been negative * on Cipro and Zosyn * no leukocytosis * did have a low-grade temps 3. Pleural effusion * suspect transudative * underwent thoracentesis 05/14 * results pending. 4. s/p Ventral hernia repair * per patient, the surgeon said it was more complicated than he anticipated. * per wound care pictures: wound healing well. 5. DVT proph: LMWH. Code Visit Inpatient E&M: 28513 Subs Hosp L3
[2018-05-14] MEDS: Multivitamins,Therapeutic Tablet 1 TABLET PO (11:07)
[2018-05-14] MEDS: Famotidine 20 MG Tablet PO ×2 (11:07→22:32)
[2018-05-14] MEDS: guaiFENesin 1,200 MG Tablet 1200 MG PO ×2 (11:07→22:32)
[2018-05-14] MEDS: Aspirin 81 MG TAB.CHEW PO (11:07)
[2018-05-14 11:35] LABS: Cytology, Body Fluid / CSF SEE PATHOLOGY REPORT
[2018-05-14 11:59] LABS: Body Fluid Mononuclear WBC # 0.644 10^3/uL; Body Fluid Mononuclear WBC % 67.8 %; Body Fluid Polynuclear WBC # 0.306 10^3/uL; Body Fluid Polynuclear WBC % 32.2 %; Body Fluid Total Cells Counted 0.986 10^3/ul
[2018-05-14] MEDS: 0.9% NaCl Peripheral Flush Adult/Peds IV (12:16)
[2018-05-14 12:36] LABS: Appearance/Body Fluid SL CLDY; Auto B Fluid Analyzer BKGD Ct COUNTS W/IN LIMITS (W/IN LIMITS); Color/Body Fluid YELLOW; Lymphocytes 59 %; Macrophages 2 %; Mesothelial Cells 1 %; Monocytes 7 %; Neutrophil (Segs) 30 %; Other Cell Type/BF 1 %; Source- Body Fluid THORACENTESIS
[2018-05-14 12:37] LABS: Body Fluid QC Type(s) BF4Q
[2018-05-14 12:43] LABS: Glucose, Body Fluid 115 mg/dL (40-70); LDH,Body Fluid 139 Units/l (Not Establ.)
--- NOTE | 2018-05-14 15:15 | CASEMGMT ---
RN CM NOTE: Call placed to [facility]. They were made aware pt is in-pt. They confirmed pt is current with them for senior living services and PT. Cristopher ESCOTON RN CM
--- NOTE | 2018-05-14 15:24 | CHAPLAIN ---
Type of Pastoral Visit _x__ Initial Visit ___ Follow-up Visit ___ On-call Visit ___ General Patient Visit ___ Spiritual Assessment ___ Family Conference ___ Bereavement ___ Rapid Response ___ Code Blue ___ Other (describe below) Pastoral Care Referral From _x__ Patient ___ Family ___ Nurse ___ Physician ___ Retail Training Manager ___ Commercial Finance Analyst ___ Other (describe below) Sacrament/Intervention _x__ Active listening ___ Anointing ___ Orthodoxy ___ Bereavement ___ Communion _x__ Afsaneh exploration ___ ___ Life review _x__ Prayer ___ Reconciliation ___ Sacrament of Sick ___ Supportive presence ___ Wedding ___ Other (describe below) Pastoral Comments
[2018-05-15] VITALS (9 sets, daily range): BP systolic 91–115; BP diastolic 58–61; PULSE 94–108; RESP 16–20; TEMP 36.6–38; O2SAT 83–97
[2018-05-15 06:00] LABS: Absolute Lymphocyte Count 2.76 X10^3/ul (0.83-4.51); Basophil# 0.08 X10^3/uL; Basophil% 0.7 % (0-1); Eosinophil# 0.17 X10^3/uL; Eosinophils% 1.6 % (0-5); Lymphocyte # 2.76 X10^3/ul (4.0); Lymphocyte % 25.4 % (19-41); Mean Corp Hgb Conc 32.3 g/gl (32-36); Mean Corpuscular Hgb 29.7 pg (27.0-32.0); Mean Platelet Vol. 9.5 fl (6.2-12.0); Monocyte# 0.76 X10^3/uL; Neutrophil # 7.04 X10^3/uL (2.7-7.7); Neutrophil % 64.7 % (47-70); Platelet Count 497 K/mm3 (150-450); RBC Distribution Width CV 14.3 % (11.6-14.6); RBC Distribution Width SD 46.3 fl (35.1-43.9); Red Blood Count 3.37 M/mm3 (4.6-6.2); White Blood Count 10.9 K/mm3 (4.4-11.0)
[2018-05-15 06:02] LABS: Anion Gap 10 (5-15); BUN 20 mg/dL (7-18); BUN/Creat Ratio 22.7 RATIO (10-20); Calcium,Total 8.3 mg/dL (8.5-10.1); Chloride 95 mmol/L (98-107); Creatinine, Serum 0.88 mg/dL (0.70-1.30); EST Glomerular Filtration Rate 90 mL/min (>60); Est Glom Filt Rate - Afr Amer 109 mL/min (>60); Estimated Creatinine Clearance 89.52 ml/min; Glucose 115 mg/dL (74-106); Potassium 3.5 mmol/L (3.5-5.1); Sodium Level 134 mmol/L (136-145)
[2018-05-15 06:11] LABS: Differential Indicated SCAN CRITERIA MET; POSITIVE COUNT NO; POSITIVE DIFFERENTIAL NO; POSITIVE MORPHOLOGY YES
[2018-05-15 06:13] LABS: Differential Comment SCANNED
[2018-05-15] MEDS: Aspirin 81 MG TAB.CHEW PO (08:36)
[2018-05-15] MEDS: Multivitamins,Therapeutic Tablet 1 TABLET PO (08:36)
--- NOTE | 2018-05-15 08:47 | PCM.PN.HOSP ---
Patient Problems: Active and Suspected Problems Pneumonia (Acute) Subjective: Breathing better after thoracentesis. Did not sleep well last night. Still on oxygen. Vitals/I&O's: Vital Signs Temp Pulse Resp BP Pulse Ox 37.2 C 94 16 108/61 96 05/15/18 02:00 05/15/18 02:00 05/15/18 02:00 05/15/18 02:00 05/15/18 02:00 Oxygen Flow Rate (L/min) 2.5 Oxygen Delivery Method Nasal Cannula Weight: 103.8 kg Body Mass Index (BMI) 29.3 Intake and Output for Last 24 Hours 05/13/18 05/14/18 05/15/18 23:59 23:59 23:59 Intake Total 2205 / 2205 1433 / 1433 998 / 998 Output Total 1850 / 1850 2845 / 2845 Balance 355 / 355 -1412 / -1412 998 / 998 General: Alert, No apparent distress HEENT: Atraumatic, Normocephalic Oral: Moist Mucosa, No Gingival or Mucosal Lesions/ Ulcerations Neck: No Nodes, Thyroid Normal Size and Texture Lungs: Diminished, - - coarse breath sounds bilaterally. Cardiovascular: Regular rate, Regular Rhythm, Normal S1, Normal S2, No murmurs Abdomen: Bowel Sounds Present, Soft, Non Tender, Non-Distended, No Hepato-splenomegaly Extremities: No edema, No Calf Tenderness Skin: No rashes, No breakdown Psych/Mental Status: Normal Affect, Appropriate Microbiology Past 72 Hours 05/14/18 10:00 Fluid - Thoracentesis Fluid Gram Stain - Final 05/14/18 10:00 Fluid - Thoracentesis Fluid Body Fluid Culture - Preliminary No growth-Final to follow 05/11/18 17:20 Sputum, Expectorated/Coughed Gram Stain - Final 05/11/18 17:20 Sputum, Expectorated/Coughed Respiratory Culture - Final 05/11/18 16:20 Blood Culture (Wb) - Anticubital Right Blood Culture - Preliminary No growth in 48 hours. 05/11/18 16:08 Blood Culture (Wb) - Anticubital Right Blood Culture - Preliminary No growth in 48 hours. Laboratory Results 05/14/18 10:00: Fluid Glucose 115 H, Fluid Total Protein 4.0, Fluid LDH 139 05/14/18 10:00: Fluid pH Pending 05/14/18 10:00: Fluid Source THORACENTESIS, Fluid Color YELLOW, Fluid Appearance SL CLDY, Fluid WBC 0.950, Fluid RBC 0.65973, Fluid Tot Cell Count 0.986, Fld Polynuclear WBCs # 0.306, Fld Polynuclear WBCs % 32.2, Fluid Mononuclear WBCs 0.644, Fld Mononuclear WBCs % 67.8, Fluid Neutrophils 30, Fluid Lymphocytes 59, Fluid Monocytes 7, Fluid Macrophages 2, Fld Mesothelial Cells 1, Fluid Other Cells 1, Fl Pathologist Comment May follow, Fluid Comment 2 SEE COMMENT 05/14/18 10:00: Miscellaneous Cytology Pending 05/15/18 05:20: Sodium 134 L, Potassium 3.5, Chloride 95 L, Carbon Dioxide 29.0, Anion Gap 10, BUN 20 H, Creatinine 0.88, Estim Creat Clear Calc 89.52, Est GFR (MDRD) Af Amer 109, Est GFR (MDRD) Non-Af 90, BUN/Creatinine Ratio 22.7 H, Glucose 115 H, Calcium 8.3 L 05/15/18 05:20: WBC 10.9, RBC 3.37 L, Hgb 10.0 L, Hct 31.0 L, MCV 92.0, MCH 29.7, MCHC 32.3, RDW 14.3, RDW Differential 46.3 H, Plt Count 497 H, MPV 9.5, Immature Gran % (Auto) 0.600, Neut % (Auto) 64.7, Lymph % (Auto) 25.4, Shannon % (Auto) 7.0, Eos % (Auto) 1.6, Baso % (Auto) 0.7, Absolute Neuts (auto) 7.0, Absolute Lymphs (auto) 2.76, Total Counted Not Reportable, Differential Comment SCANNED Current Medications Acetaminophen (Tylenol) 650 mg PO Q4H PRN PRN PRN Reason: FEVER Last Admin: 05/14/18 12:15 Dose: 650 mg Albuterol Sulfate (Ventolin Aerosols) 2.5 mg INHALATION Q2H PRN PRN PRN Reason: SHORTNESS OF BREATH Albuterol/Ipratropium (Duoneb) 3 ml INHALATION Q6H.RT [facility] Last Admin: 05/15/18 07:00 Dose: Not Given Amlodipine Besylate (Norvasc) 5 mg PO DAILY [facility] Last Admin: 05/14/18 11:11 Dose: Not Given Aspirin (Aspirin, Baby) 81 mg PO DAILY@0800 [facility] Last Admin: 05/15/18 08:36 Dose: 81 mg Cholecalciferol (Vitamin D) 5,000 unit PO DAILY [facility] Last Admin: 05/14/18 11:06 Dose: 5,000 unit Enoxaparin Sodium (Lovenox) 40 mg SC DAILY@1000 [facility] Last Admin: 05/14/18 11:09 Dose: Not Given Famotidine (Pepcid) 20 mg PO BID [facility] Last Admin: 05/14/18 22:32 Dose: 20 mg Furosemide (Lasix) 40 mg PO BID@1000,1800 [facility] Last Admin: 05/14/18 17:44 Dose: Not Given Guaifenesin (Mucinex) 1,200 mg PO BID [facility] Last Admin: 05/14/18 22:32 Dose: 1,200 mg Lisinopril (Zestril) 20 mg PO BID [facility] Last Admin: 05/14/18 22:32 Dose: Not Given Magnesium Hydroxide (Milk Of Magnesia) 30 ml PO DAILY PRN PRN Reason: Constipation Multivitamins (Multivitamin) 1 tablet PO DAILY@0800 [facility] Last Admin: 05/15/18 08:36 Dose: 1 tablet Nutritional Formula (Lactose Free) (Ensure Enlive) 120 ml PO 4X/DAY [facility] Last Admin: 05/14/18 22:30 Dose: Not Given Ondansetron HCl (Zofran) 4 mg IV Q8H PRN PRN PRN Reason: NAUSEA Promethazine HCl (Phenergan Tablet) 25 mg PO Q6H PRN PRN Reason: NAUSEA Sodium Chloride () 5 - 30 ml IV UD PRN PRN Reason: SALINE FLUSH Last Admin: 05/14/18 12:16 Dose: 10 ml Zolpidem Tartrate (Ambien (Generic)) 5 mg PO QHS PRN PRN PRN Reason: SLEEP Last Admin: 05/11/18 22:31 Dose: 5 mg Medical Necessity - Tobacco Use Smoking Status: Former smoker Assessment/Plan All Active Problems Pneumonia (Acute) 1. 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 I suspect patient received a lot of fluids during his 12 day stay at [facility], which at one point he was in the ICU ([facility] unable to be accessed at this time) Continue with lasix, lisinopril check records from [facility] 2. Presumed gram-negative pneumonia ruled out work up here has been unremarkable culture results have been negative antibiotics DC'd 05/14 no leukocytosis did have a low-grade temps 3. Pleural effusion transudative underwent thoracentesis 05/14 and drained 1420 cc likely due to fluids he received during his long hospitalization at [facility] (12 day hospitalization and 4 of those days were in the ICU) continue with lasix recheck CXR on 05/16 will need follow up CXR in 4-6 weeks after discharge. 4. s/p Ventral hernia repair per patient, the surgeon said it was more complicated than he anticipated, requiring a partial colectomy per wound care pictures: wound healing well. reviewed records from [facility], and was unfortunately lacking. No op-reports, progress notes, etc. patient to follow up with Dr. Tomas 05/23 5. DVT proph: LMWH. Code Visit Inpatient E&M: 08670 Subs Hosp L2
--- NOTE | 2018-05-15 08:53 | PN_ITS ---
Patient Problems: Active and Suspected Problems Pneumonia (Acute) Subjective: Breathing better after thoracentesis. Did not sleep well last night. Still on oxygen. Vitals/I&O's: Vital Signs Temp Pulse Resp BP Pulse Ox 37.2 C 94 16 108/61 96 05/15/18 02:00 05/15/18 02:00 05/15/18 02:00 05/15/18 02:00 05/15/18 02:00 Oxygen Flow Rate (L/min) 2.5 Oxygen Delivery Method Nasal Cannula Weight: 103.8 kg Body Mass Index (BMI) 29.3 Intake and Output for Last 24 Hours 05/13/18 05/14/18 05/15/18 23:59 23:59 23:59 Intake Total 2205 / 2205 1433 / 1433 998 / 998 Output Total 1850 / 1850 2845 / 2845 Balance 355 / 355 -1412 / -1412 998 / 998 General: Alert, No apparent distress HEENT: Atraumatic, Normocephalic Oral: Moist Mucosa, No Gingival or Mucosal Lesions/ Ulcerations Neck: No Nodes, Thyroid Normal Size and Texture Lungs: Diminished, - - coarse breath sounds bilaterally. Cardiovascular: Regular rate, Regular Rhythm, Normal S1, Normal S2, No murmurs Abdomen: Bowel Sounds Present, Soft, Non Tender, Non-Distended, No Hepato- splenomegaly Extremities: No edema, No Calf Tenderness Skin: No rashes, No breakdown Psych/Mental Status: Normal Affect, Appropriate Microbiology Past 72 Hours 05/14/18 10:00 Fluid - Thoracentesis Fluid Gram Stain - Final 05/14/18 10:00 Fluid - Thoracentesis Fluid Body Fluid Culture - Preliminary No growth-Final to follow 05/11/18 17:20 Sputum, Expectorated/Coughed Gram Stain - Final 05/11/18 17:20 Sputum, Expectorated/Coughed Respiratory Culture - Final 05/11/18 16:20 Blood Culture (Wb) - Anticubital Right Blood Culture - Preliminary No growth in 48 hours. 05/11/18 16:08 Blood Culture (Wb) - Anticubital Right Blood Culture - Preliminary No growth in 48 hours. Laboratory Results 05/14/18 10:00: Fluid Glucose 115 H, Fluid Total Protein 4.0, Fluid LDH 139 05/14/18 10:00: Fluid pH Pending 05/14/18 10:00: Fluid Source THORACENTESIS, Fluid Color YELLOW, Fluid Appearance SL CLDY, Fluid WBC 0.950, Fluid RBC 0.15789, Fluid Tot Cell Count 0.986, Fld Po lynuclear WBCs # 0.306, Fld Polynuclear WBCs % 32.2, Fluid Mononuclear WBCs 0.644, Fld Mononuclear WBCs % 67.8, Fluid Neutrophils 30, Fluid Lymphocytes 59, Fluid Monocytes 7, Fluid Macrophages 2, Fld Mesothelial Cells 1, Fluid Other Cells 1, Fl Pathologist Comment May follow, Fluid Comment 2 SEE COMMENT 05/14/18 10:00: Miscellaneous Cytology Pending 05/15/18 05:20: Sodium 134 L, Potassium 3.5, Chloride 95 L, Carbon Dioxide 29.0, Anion Gap 10, BUN 20 H, Creatinine 0.88, Estim Creat Clear Calc 89.52, Est GFR (MDRD) Af Amer 109, Est GFR (MDRD) Non-Af 90, BUN/Creatinine Ratio 22.7 H, Glucose 115 H, Calcium 8.3 L 05/15/18 05:20: WBC 10.9, RBC 3.37 L, Hgb 10.0 L, Hct 31.0 L, MCV 92.0, MCH 29.7, MCHC 32.3, RDW 14.3, RDW Differential 46.3 H, Plt Count 497 H, MPV 9.5, Immature Gran % (Auto) 0.600, Neut % (Auto) 64.7, Lymph % (Auto) 25.4, [place] % (Auto) 7.0, Eos % (Auto) 1.6, Baso % (Auto) 0.7, Absolute Neuts (auto) 7.0, Absolute Lymphs (auto) 2.76, Total Counted Not Reportable, Differential Comment SCANNED Current Medications Acetaminophen (Tylenol) 650 mg PO Q4H PRN PRN PRN Reason: FEVER Last Admin: 05/14/18 12:15 Dose: 650 mg Albuterol Sulfate (Ventolin Aerosols) 2.5 mg INHALATION Q2H PRN PRN PRN Reason: SHORTNESS OF BREATH Albuterol/Ipratropium (Duoneb) 3 ml INHALATION Q6H.RT [facility] Last Admin: 05/15/18 07:00 Dose: Not Given Amlodipine Besylate (Norvasc) 5 mg PO DAILY [facility] Last Admin: 05/14/18 11:11 Dose: Not Given Aspirin (Aspirin, Baby) 81 mg PO DAILY@0800 [facility] Last Admin: 05/15/18 08:36 Dose: 81 mg Cholecalciferol (Vitamin D) 5,000 unit PO DAILY [facility] Last Admin: 05/14/18 11:06 Dose: 5,000 unit Enoxaparin Sodium (Lovenox) 40 mg SC DAILY@1000 [facility] Last Admin: 05/14/18 11:09 Dose: Not Given Famotidine (Pepcid) 20 mg PO BID [facility] Last Admin: 05/14/18 22:32 Dose: 20 mg Furosemide (Lasix) 40 mg PO BID@1000,1800 [facility] Last Admin: 05/14/18 17:44 Dose: Not Given Guaifenesin (Mucinex) 1,200 mg PO BID [facility] Last Admin: 05/14/18 22:32 Dose: 1,200 mg Lisinopril (Zestril) 20 mg PO BID [facility] Last Admin: 05/14/18 22:32 Dose: Not Given Magnesium Hydroxide (Milk Of Magnesia) 30 ml PO DAILY PRN PRN Reason: Constipation Multivitamins (Multivitamin) 1 tablet PO DAILY@0800 [facility] Last Admin: 05/15/18 08:36 Dose: 1 tablet Nutritional Formula (Lactose Free) (Ensure Enlive) 120 ml PO 4X/DAY [facility] Last Admin: 05/14/18 22:30 Dose: Not Given Ondansetron HCl (Zofran) 4 mg IV Q8H PRN PRN PRN Reason: NAUSEA Promethazine HCl (Phenergan Tablet) 25 mg PO Q6H PRN PRN Reason: NAUSEA Sodium Chloride () 5 - 30 ml IV UD PRN PRN Reason: SALINE FLUSH Last Admin: 05/14/18 12:16 Dose: 10 ml Zolpidem Tartrate (Ambien (Generic)) 5 mg PO QHS PRN PRN PRN Reason: SLEEP Last Admin: 05/11/18 22:31 Dose: 5 mg Medical Necessity - Tobacco Use Smoking Status: Former smoker Assessment/Plan All Active Problems Pneumonia (Acute) 1. acute HFpEF * EF 65% * has diuresed well since he has been here, though his weights do not reflect it. * I suspect patient received a lot of fluids during his 12 day stay at [facility], which at one point he was in the ICU ([facility] unable to be accessed at this time) * Continue with lasix, lisinopril * check records from [facility] 2. Presumed gram-negative pneumonia * ruled out * work up here has been unremarkable * culture results have been negative * antibiotics DC'd 05/14 * no leukocytosis * did have a low-grade temps 3. Pleural effusion * transudative * underwent thoracentesis 05/14 and drained 1420 cc * likely due to fluids he received during his long hospitalization at [facility] (12 day hospitalization and 4 of those days were in the ICU) * continue with lasix * recheck CXR on 05/16 * will need follow up CXR in 4-6 weeks after discharge. 4. s/p Ventral hernia repair * per patient, the surgeon said it was more complicated than he anticipated, requiring a partial colectomy * per wound care pictures: wound healing well. * reviewed records from [facility], and was unfortunately lacking. No op-reports, progress notes, etc. * patient to follow up with Dr. Tomas 05/23 5. DVT proph: LMWH. Code Visit Inpatient E&M: 19589 Subs Hosp L2
[2018-05-15] MEDS: Enoxaparin 40 MG/0.4 ML Syringe SC (11:45)
[2018-05-15] MEDS: Famotidine 20 MG Tablet PO ×2 (11:46→22:39)
[2018-05-15] MEDS: guaiFENesin 1,200 MG Tablet 1200 MG PO ×2 (11:46→22:39)
[2018-05-15] MEDS: Furosemide 40 MG Tablet PO ×2 (11:46→17:52)
[2018-05-15 12:22] LABS: Pathologist Comment/Body Fluid Reviewed
[2018-05-15] MEDS: Acetaminophen 325 MG Tablet 650 MG PO ×2 (12:33→19:42)
[2018-05-15] MEDS: Ipratropium/Albuterol Sulfate 3 ML AMPUL.NEB INHALATION (13:42)
[2018-05-16] VITALS (8 sets, daily range): BP systolic 105–123; BP diastolic 48–64; PULSE 64–104; RESP 16–20; TEMP 36.7–38.4; O2SAT 86–98
[2018-05-16] MEDS: Acetaminophen 325 MG Tablet 650 MG PO (05:38)
[2018-05-16 06:34] LABS: Anion Gap 9 (5-15); BUN 20 mg/dL (7-18); Calcium,Total 8.1 mg/dL (8.5-10.1); Chloride 96 mmol/L (98-107); Creatinine, Serum 0.74 mg/dL (0.70-1.30); EST Glomerular Filtration Rate 111 mL/min (>60); Est Glom Filt Rate - Afr Amer 134 mL/min (>60); Estimated Creatinine Clearance 78.78 ml/min; Glucose 105 mg/dL (74-106); Potassium 3.7 mmol/L (3.5-5.1); Sodium Level 134 mmol/L (136-145)
[2018-05-16] MEDS: Ipratropium/Albuterol Sulfate 3 ML AMPUL.NEB INHALATION (06:40)
--- NOTE | 2018-05-16 09:35 | PCM.PN.HOSP ---
Patient Problems: Active and Suspected Problems Pneumonia (Acute) Subjective: Breathing well. [place] hot this AM and asked to lower temperature on thermostat. Vitals/I&O's: Vital Signs Temp Pulse Resp BP Pulse Ox 38.4 C H 102 H 20 H 119/64 96 05/16/18 05:33 05/16/18 06:40 05/16/18 06:40 05/16/18 05:33 05/16/18 06:40 Oxygen Flow Rate (L/min) 3 Oxygen Delivery Method Nasal Cannula Weight: 103.8 kg Body Mass Index (BMI) 29.3 Intake and Output for Last 24 Hours 05/14/18 05/15/18 05/16/18 23:59 23:59 23:59 Intake Total 1433 / 1433 2514 / 2514 700 / 700 Output Total 2845 / 2845 250 / 250 725 / 725 Balance -1412 / -1412 2264 / 2264 -25 / -25 General: Alert, No apparent distress HEENT: Atraumatic, Normocephalic Oral: Moist Mucosa, No Gingival or Mucosal Lesions/ Ulcerations Neck: No Nodes, Thyroid Normal Size and Texture Lungs: Clear to auscultation, Normal air movement, No rhonchi, No wheeze Cardiovascular: Regular rate, Regular Rhythm, Normal S1, Normal S2, No murmurs Abdomen: Bowel Sounds Present, Soft, Non Tender, Non-Distended, No Hepato-splenomegaly Extremities: No edema, No Calf Tenderness Skin: No rashes, No breakdown Psych/Mental Status: Normal Affect, Appropriate Microbiology Past 72 Hours 05/14/18 10:00 Fluid - Thoracentesis Fluid Gram Stain - Final 05/14/18 10:00 Fluid - Thoracentesis Fluid Body Fluid Culture - Preliminary No growth-Final to follow 05/11/18 17:20 Sputum, Expectorated/Coughed Gram Stain - Final 05/11/18 17:20 Sputum, Expectorated/Coughed Respiratory Culture - Final 05/11/18 16:20 Blood Culture (Wb) - Anticubital Right Blood Culture - Preliminary No growth in 48 hours. 05/11/18 16:08 Blood Culture (Wb) - Anticubital Right Blood Culture - Preliminary No growth in 48 hours. Laboratory Results 05/14/18 10:00: Fl Pathologist Comment Reviewed 05/14/18 10:00: Miscellaneous Cytology SEE PATHOLOGY REPORT 05/16/18 05:30: Sodium 134 L, Potassium 3.7, Chloride 96 L, Carbon Dioxide 29.0, Anion Gap 9, BUN 20 H, Creatinine 0.74, Estim Creat Clear Calc 78.78, Est GFR (MDRD) Af Amer 134, Est GFR (MDRD) Non-Af 111, BUN/Creatinine Ratio 27.0 H, Glucose 105, Calcium 8.1 L Current Medications Acetaminophen (Tylenol) 650 mg PO Q4H PRN PRN PRN Reason: FEVER Last Admin: 05/16/18 05:38 Dose: 650 mg Albuterol Sulfate (Ventolin Aerosols) 2.5 mg INHALATION Q2H PRN PRN PRN Reason: SHORTNESS OF BREATH Albuterol/Ipratropium (Duoneb) 3 ml INHALATION Q6H.RT [facility] Last Admin: 05/16/18 06:40 Dose: 3 ml Amlodipine Besylate (Norvasc) 5 mg PO DAILY [facility] Last Admin: 05/15/18 11:59 Dose: Not Given Aspirin (Aspirin, Baby) 81 mg PO DAILY@0800 [facility] Last Admin: 05/15/18 08:36 Dose: 81 mg Cholecalciferol (Vitamin D) 5,000 unit PO DAILY [facility] Last Admin: 05/15/18 11:46 Dose: 5,000 unit Enoxaparin Sodium (Lovenox) 40 mg SC DAILY@1000 [facility] Last Admin: 05/15/18 11:45 Dose: 40 mg Famotidine (Pepcid) 20 mg PO BID [facility] Last Admin: 05/15/18 22:39 Dose: 20 mg Furosemide (Lasix) 40 mg PO BID@1000,1800 [facility] Last Admin: 05/15/18 17:52 Dose: 40 mg Guaifenesin (Mucinex) 1,200 mg PO BID [facility] Last Admin: 05/15/18 22:39 Dose: 1,200 mg Lisinopril (Zestril) 20 mg PO BID [facility] Last Admin: 05/15/18 22:39 Dose: Not Given Magnesium Hydroxide (Milk Of Magnesia) 30 ml PO DAILY PRN PRN Reason: Constipation Multivitamins (Multivitamin) 1 tablet PO DAILY@0800 [facility] Last Admin: 05/15/18 08:36 Dose: 1 tablet Nutritional Formula (Lactose Free) (Ensure Enlive) 120 ml PO 4X/DAY [facility] Last Admin: 05/15/18 22:39 Dose: 120 ml Ondansetron HCl (Zofran) 4 mg IV Q8H PRN PRN PRN Reason: NAUSEA Promethazine HCl (Phenergan Tablet) 25 mg PO Q6H PRN PRN Reason: NAUSEA Sodium Chloride () 5 - 30 ml IV UD PRN PRN Reason: SALINE FLUSH Last Admin: 05/14/18 12:16 Dose: 10 ml Zolpidem Tartrate (Ambien (Generic)) 5 mg PO QHS PRN PRN PRN Reason: SLEEP Last Admin: 05/11/18 22:31 Dose: 5 mg Medical Necessity - Tobacco Use Smoking Status: Former smoker Assessment/Plan All Active Problems Pneumonia (Acute) 1. 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 I suspect patient received a lot of fluids during his 12 day stay at [facility], which at one point he was in the ICU ([facility] unable to be accessed at this time) Continue with lasix, lisinopril records from [facility] were reviewed. Records were scant and not useful: no notes, Is/Os, etc. 2. Presumed gram-negative pneumonia ruled out work up here has been unremarkable culture results have been negative antibiotics DC'd 05/14 no leukocytosis did have a low-grade temps temp of 38.4 today. 3. Pleural effusion transudative underwent thoracentesis 05/14 and drained 1420 cc likely due to fluids he received during his long hospitalization at [facility] (12 day hospitalization and 4 of those days were in the ICU) continue with lasix recheck CXR on 05/16 will need follow up CXR in 4-6 weeks after discharge. 4. s/p Ventral hernia repair per patient, the surgeon said it was more complicated than he anticipated, requiring a partial colectomy per wound care pictures: wound healing well. reviewed records from [facility], and was unfortunately lacking. No op-reports, progress notes, etc. patient to follow up with Dr. Tomas 05/23 5. DVT proph: LMWH. 6. Disposition: pending CXR today and if any recurrent fevers. will need an ambulatory pulse ox prior to discharge. Code Visit Inpatient E&M: 93522 Subs Hosp L2
--- NOTE | 2018-05-16 09:38 | PN_ITS ---
Patient Problems: Active and Suspected Problems Pneumonia (Acute) Subjective: Breathing well. [place] hot this AM and asked to lower temperature on thermostat. Vitals/I&O's: Vital Signs Temp Pulse Resp BP Pulse Ox 38.4 C H 102 H 20 H 119/64 96 05/16/18 05:33 05/16/18 06:40 05/16/18 06:40 05/16/18 05:33 05/16/18 06:40 Oxygen Flow Rate (L/min) 3 Oxygen Delivery Method Nasal Cannula Weight: 103.8 kg Body Mass Index (BMI) 29.3 Intake and Output for Last 24 Hours 05/14/18 05/15/18 05/16/18 23:59 23:59 23:59 Intake Total 1433 / 1433 2514 / 2514 700 / 700 Output Total 2845 / 2845 250 / 250 725 / 725 Balance -1412 / -1412 2264 / 2264 -25 / -25 General: Alert, No apparent distress HEENT: Atraumatic, Normocephalic Oral: Moist Mucosa, No Gingival or Mucosal Lesions/ Ulcerations Neck: No Nodes, Thyroid Normal Size and Texture Lungs: Clear to auscultation, Normal air movement, No rhonchi, No wheeze Cardiovascular: Regular rate, Regular Rhythm, Normal S1, Normal S2, No murmurs Abdomen: Bowel Sounds Present, Soft, Non Tender, Non-Distended, No Hepato- splenomegaly Extremities: No edema, No Calf Tenderness Skin: No rashes, No breakdown Psych/Mental Status: Normal Affect, Appropriate Microbiology Past 72 Hours 05/14/18 10:00 Fluid - Thoracentesis Fluid Gram Stain - Final 05/14/18 10:00 Fluid - Thoracentesis Fluid Body Fluid Culture - Preliminary No growth-Final to follow 05/11/18 17:20 Sputum, Expectorated/Coughed Gram Stain - Final 05/11/18 17:20 Sputum, Expectorated/Coughed Respiratory Culture - Final 05/11/18 16:20 Blood Culture (Wb) - Anticubital Right Blood Culture - Preliminary No growth in 48 hours. 05/11/18 16:08 Blood Culture (Wb) - Anticubital Right Blood Culture - Preliminary No growth in 48 hours. Laboratory Results 05/14/18 10:00: Fl Pathologist Comment Reviewed 05/14/18 10:00: Miscellaneous Cytology SEE PATHOLOGY REPORT 05/16/18 05:30: Sodium 134 L, Potassium 3.7, Chloride 96 L, Carbon Dioxide 29.0, Anion Gap 9, BUN 20 H, Creatinine 0.74, Estim Creat Clear Calc 78.78, Est GFR (MDRD) Af Amer 134, Est GFR (MDRD) Non-Af 111, BUN/Creatinine Ratio 27.0 H, Glucose 105, Calcium 8.1 L Current Medications Acetaminophen (Tylenol) 650 mg PO Q4H PRN PRN PRN Reason: FEVER Last Admin: 05/16/18 05:38 Dose: 650 mg Albuterol Sulfate (Ventolin Aerosols) 2.5 mg INHALATION Q2H PRN PRN PRN Reason: SHORTNESS OF BREATH Albuterol/Ipratropium (Duoneb) 3 ml INHALATION Q6H.RT [facility] Last Admin: 05/16/18 06:40 Dose: 3 ml Amlodipine Besylate (Norvasc) 5 mg PO DAILY [facility] Last Admin: 05/15/18 11:59 Dose: Not Given Aspirin (Aspirin, Baby) 81 mg PO DAILY@0800 [facility] Last Admin: 05/15/18 08:36 Dose: 81 mg Cholecalciferol (Vitamin D) 5,000 unit PO DAILY [facility] Last Admin: 05/15/18 11:46 Dose: 5,000 unit Enoxaparin Sodium (Lovenox) 40 mg SC DAILY@1000 [facility] Last Admin: 05/15/18 11:45 Dose: 40 mg Famotidine (Pepcid) 20 mg PO BID [facility] Last Admin: 05/15/18 22:39 Dose: 20 mg Furosemide (Lasix) 40 mg PO BID@1000,1800 [facility] Last Admin: 05/15/18 17:52 Dose: 40 mg Guaifenesin (Mucinex) 1,200 mg PO BID [facility] Last Admin: 05/15/18 22:39 Dose: 1,200 mg Lisinopril (Zestril) 20 mg PO BID [facility] Last Admin: 05/15/18 22:39 Dose: Not Given Magnesium Hydroxide (Milk Of Magnesia) 30 ml PO DAILY PRN PRN Reason: Constipation Multivitamins (Multivitamin) 1 tablet PO DAILY@0800 [facility] Last Admin: 05/15/18 08:36 Dose: 1 tablet Nutritional Formula (Lactose Free) (Ensure Enlive) 120 ml PO 4X/DAY [facility] Last Admin: 05/15/18 22:39 Dose: 120 ml Ondansetron HCl (Zofran) 4 mg IV Q8H PRN PRN PRN Reason: NAUSEA Promethazine HCl (Phenergan Tablet) 25 mg PO Q6H PRN PRN Reason: NAUSEA Sodium Chloride () 5 - 30 ml IV UD PRN PRN Reason: SALINE FLUSH Last Admin: 05/14/18 12:16 Dose: 10 ml Zolpidem Tartrate (Ambien (Generic)) 5 mg PO QHS PRN PRN PRN Reason: SLEEP Last Admin: 05/11/18 22:31 Dose: 5 mg Medical Necessity - Tobacco Use Smoking Status: Former smoker Assessment/Plan All Active Problems Pneumonia (Acute) 1. acute HFpEF * EF 65% * has diuresed well since he has been here, though his weights do not reflect it. * I suspect patient received a lot of fluids during his 12 day stay at [facility], which at one point he was in the ICU ([facility] unable to be accessed at this time) * Continue with lasix, lisinopril * records from [facility] were reviewed. Records were scant and not useful: no notes, Is/Os, etc. 2. Presumed gram-negative pneumonia * ruled out * work up here has been unremarkable * culture results have been negative * antibiotics DC'd 05/14 * no leukocytosis * did have a low-grade temps * temp of 38.4 today. 3. Pleural effusion * transudative * underwent thoracentesis 05/14 and drained 1420 cc * likely due to fluids he received during his long hospitalization at [facility] (12 day hospitalization and 4 of those days were in the ICU) * continue with lasix * recheck CXR on 05/16 * will need follow up CXR in 4-6 weeks after discharge. 4. s/p Ventral hernia repair * per patient, the surgeon said it was more complicated than he anticipated, requiring a partial colectomy * per wound care pictures: wound healing well. * reviewed records from [facility], and was unfortunately lacking. No op-reports, progress notes, etc. * patient to follow up with Dr. Tomas 05/23 5. DVT proph: LMWH. 6. Disposition: * pending CXR today and if any recurrent fevers. * will need an ambulatory pulse ox prior to discharge. Code Visit Inpatient E&M: [id number] Subs Hosp L2
[2018-05-16] MEDS: Furosemide 40 MG Tablet PO (10:16)
[2018-05-16] MEDS: Aspirin 81 MG TAB.CHEW PO (10:16)
[2018-05-16] MEDS: Multivitamins,Therapeutic Tablet 1 TABLET PO (10:16)
[2018-05-16] MEDS: Famotidine 20 MG Tablet PO (10:16)
[2018-05-16] MEDS: guaiFENesin 1,200 MG Tablet 1200 MG PO (10:16)
[2018-05-16] MEDS: Enoxaparin 40 MG/0.4 ML Syringe SC (10:16)
--- NOTE | 2018-05-16 11:00 | RAD_ITS ---
STUDY: X-RAY CHEST REASON FOR EXAM: Male, 73 years old. Pleural effusion. TECHNIQUE: PA and lateral views of the chest. COMPARISON: Comparison is made with prior study dated May 14, 2018. FINDINGS: Small right pleural effusion with bibasilar atelectasis. This has slightly increased as compared to prior study. Normal size heart. Normal mediastinum and jason. Normal visualized pulmonary arteries. Normal visualized aortic arch and descending thoracic aorta. There are diffuse degenerative changes of the visualized thoracic spine. Normal visualized ribs, clavicles, and shoulders. There is no demonstrated abnormality of the visualized soft tissue structures of the upper abdomen. RAD/Chest PA and Lateral IMPRESSION: Small right pleural effusion. Increased markings at both lung bases. This is suggestive of atelectasis. Electronically Signed: Iván Paige MD at 13:24 EDT Tel [phone], Service support ,
--- NOTE | 2018-05-16 11:42 | CASEMGMT ---
DEVON DARBY NOTE: Call placed to [facility] and informed them anticipated discharged is today 05/16/18. Also made aware pt will be discharged w/Home O2. Will fax discharge instructions, resumption of HHC order, and clinical information to them upon discharge. Cristopher BSN DEVON CM
--- NOTE | 2018-05-16 12:55 | CASEMGMT ---
DEVON DARBY NOTE: Home O2 testing completed and reviewed. Script obtained from Dr Tovar for O2 and faxed to [facility], along with copy of home O2 qualifications, demographic sheet, and copy of insurance card. They are aware of anticipated discharge today 05/16/18. [facility] confirmed they did receive the faxed information. They stated [facility] is out-of network and they cannot provide O2 for this pt. Script for O2, along with copy of home O2 qualifications, demographic sheet, and copy of insurance card faxed to [facility] and they state they are in-network, but are unsure if O2 can be set up today. DEVON DARBY will contact [facility] once paperwork is processed to confirm when O2 can be arranged. Cristopher EDMOND RN CM
--- NOTE | 2018-05-16 13:41 | DCINST_ITS ---
- Discharge Diagnoses Current Active Problems: Current Active and Chronic Problems Pneumonia (Acute) Essential hypertension (Chronic) Dyslipidemia (Chronic) You will use the following diet at home:: Fluid restricted (specify 2000 mls, 1500 mls) - 1500 cc/day Your food should be the consistency of: Regular Discharge Activity: Return to Normal Activity Weight Bearing Status: Weight bearing as tolerated Call your doctor if you observe: Fever of 101 or Higher, Shortness of breath, Fainting spells, Swelling in the ankles, Chest pain Instructions: Discharge Instructions for Thoracentesis Additional Instructions: Daily weights. Notify physician if weight increases by 2 pounds in 1 day or 3 pounds in 1 week. Allergies/Adverse Reactions: Allergies No Known Allergies Allergy (Verified 05/11/18 12:26) Medications to take at Discharge Aspirin [Aspirin, Baby] 81 mg PO DAILY@0800 04/20/18 Cholecalciferol (Vitamin D3) [Vitamin D3] 5,000 unit PO DAILY 04/20/18 Gemfibrozil [Lopid] 600 mg NG BIDAC 04/20/18 Multivitamin [Daily Multiple Vitamin] 1 each PO DAILY 04/20/18 Oxycodone HCl/Acetaminophen [Percocet 5-325] 1 - 2 tablet PO Q6H PRN PRN 05/11/18 Promethazine HCl 25 mg PO Q6H PRN 05/11/18 Albuterol Inhaler [Ventolin Hfa] 2 puff INHALATION Q4H PRN PRN #1 inhaler 05/16/18 Furosemide [Lasix] 40 mg PO DAILY #30 tablet 05/16/18 Lisinopril [Zestril] 5 mg PO BID #30 tablet 05/16/18 Potassium Chloride [K-Dur] 10 meq PO DAILY #30 tablet 05/16/18 The following prescriptions were given: Albuterol Inhaler [Ventolin Hfa] 2 puff INHALATION Q4H PRN PRN #1 inhaler PRN Reason: Shortness Of Breath Furosemide [Lasix] 40 mg PO DAILY #30 tablet Potassium Chloride [K-Dur] 10 meq PO DAILY #30 tablet Lisinopril [Zestril] 5 mg PO BID #30 tablet Orders to be completed after discharge: Chest PA and Lateral [RAD] Time Frame: 1 Month, Location: None Selected Basic Metabolic Profile (BMP) Time Frame: 1 Week, Location: Laboratory Primary Care Physician: Swetha Pedersen DO [Primary Care Provider] - In 1 Week Test Results: Test results from this visit will be discussed in further detail at your follow- up appointment, if applicable. Please Follow Up With: Daniel Tomas When: 05/23/18 Proposed Discharge Date: 05/16/18
--- NOTE | 2018-05-16 13:41 | PCM.DC.SUM ---
Discharge Date and Diagnosis - Problem List Patient Problems: Active and Suspected Problems Pleural effusion (Acute) Heart failure with preserved ejection fraction (Acute) Date of Admission: 05/11/18 Date of Discharge: 05/16/18 - Primary Discharge Diagnosis Active and Suspected Problems Pleural effusion (Acute) Heart failure with preserved ejection fraction (Acute) 1. 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 I suspect patient received a lot of fluids during his 12 day stay at [facility], which at one point he was in the ICU ([facility] unable to be accessed at this time) Continue with lasix, lisinopril records from [facility] were reviewed. Records were scant and not useful: no notes, Is/Os, etc. 2. Presumed gram-negative pneumonia ruled out work up here has been unremarkable culture results have been negative antibiotics DC'd 05/14 no leukocytosis did have a low-grade temps temp of 38.4 today. 3. Pleural effusion transudative underwent thoracentesis 05/14 and drained 1420 cc likely due to fluids he received during his long hospitalization at [facility] (12 day hospitalization and 4 of those days were in the ICU) continue with lasix recheck CXR on 05/16 will need follow up CXR in 4-6 weeks after discharge. 4. s/p Ventral hernia repair per patient, the surgeon said it was more complicated than he anticipated, requiring a partial colectomy per wound care pictures: wound healing well. reviewed records from [facility], and was unfortunately lacking. No op-reports, progress notes, etc. patient to follow up with Dr. Tomas 05/23 - Secondary Discharge Diagnosis Chronic Problems Essential hypertension (Chronic) Dyslipidemia (Chronic) Hospital Course and Treatment Imaging Results: 05/16/18 11:00 Chest PA and Lateral [RAD] Clinical Impression(s) from Imaging Studies Acute Abdomen Series 05/11/18 13:30 Chest X-Ray 05/12/18 09:17 IMPRESSION: Large right pleural effusion. Electronically Signed: Scottie Abbasi MD at 17:55 EDT , Service support , Thoracentesis Ultrasound 05/14/18 07:41 IMPRESSION: Ultrasound-guided right thoracentesis. Electronically Signed: Iván Paige MD at 12:53 EDT Tel [phone], Service support , Chest X-Ray 05/14/18 10:15 IMPRESSION: Status post right thoracentesis. No evidence of pneumothorax. Findings suggestive of mild bibasilar linear atelectasis. Electronically Signed: Iván Paige MD at 13:48 EDT Tel [phone], Service support , Chest X-Ray 05/16/18 11:00 IMPRESSION: Small right pleural effusion. Increased markings at both lung bases. This is suggestive of atelectasis. Electronically Signed: Iván Paige MD at 13:24 EDT Tel [phone], Service support , Consultations 05/12/18 10:38 Consult: Onc/Wound/gill box operator Routine Comment: Operations: None Procedures: Thoracentesis, Transthoracic echo Summary of Care Provided: The patient is a 73 year old M resents with cough and shortness of breath. Chest x-ray was consistent with pulmonary edema as well as pleural effusion. There was some concern for pneumonia given patient's recent hospitalization for ventral hernia repair. Pneumonia workup was unremarkable so antibiotics were discontinued on the and patient continued to do well. Patient was diuresed with Lasix and also underwent a thoracentesis on the that removed 1420 cc. The fluid was analyzed and was deemed to be transudate of. Is feeling that the patient's pleural effusion and pulmonary edema is due to heart failure. Patient's ejection fraction was 60%.-Patient underwent heart failure due to copious amounts of fluid the patient received during his hospitalization for a ventral hernia repair that was more complex and initially thought. Patient stated that he had a 12-day hospital stay in for for which were in the ICU. Presumably, the patient received a lot of fluids during that time I am, however, I do not have objective data to substantiate that. We did request records from [facility], however records were only showed some lab work but did not reveal notes, progress notes etc. Patient will be discharged today and he will be on Lasix 40 mg daily as well as potassium replacement while he is on Lasix. Patient will require BMP in about a week's time to see how his creatinine and potassium are doing. For the patient's pulmonary edema and pleural effusion, patient will require a chest x-ray in about 4 weeks. Patient has a follow-up appointment already scheduled with his surgeon on the . Patient did drop down to 86% on room air with ambulation, therefore, patient will require oxygen at 2 L/min with activity. [] Patient Problems: Active and Suspected Problems Pleural effusion (Acute) Heart failure with preserved ejection fraction (Acute) - Physical Exam Vital Signs Temp Pulse Resp BP Pulse Ox 36.9 C 64 18 105/48 L 96 05/16/18 10:02 05/16/18 10:02 05/16/18 11:53 05/16/18 10:02 05/16/18 11:52 Oxygen Flow Rate (L/min) [ 2 AMBULATION with Oxygen] Oxygen Flow Rate (L/min) 2 Oxygen Delivery Method Nasal Cannula Weight: 103.8 kg Body Mass Index (BMI) 29.3 Intake and Output for Last 24 Hours 05/14/18 05/15/18 05/16/18 23:59 23:59 23:59 Intake Total 1433 / 1433 2514 / 2514 1140 / 1140 Output Total 2845 / 2845 250 / 250 725 / 725 Balance -1412 / -1412 2264 / 2264 415 / 415 Microbiology Past 72 Hours 05/14/18 10:00 Gram Stain - Final Fluid - Thoracentesis Fluid Body Fluid Culture - Preliminary No growth-Final to follow Anaerobic Culture - Preliminary No growth in 48 hours. 05/11/18 17:20 Gram Stain - Final Sputum, Expectorated/Coughed Respiratory Culture - Final 05/11/18 16:20 Blood Culture - Preliminary Blood Culture (Wb) - Anticubital Right No growth in 48 hours. 05/11/18 16:08 Blood Culture - Preliminary Blood Culture (Wb) - Anticubital Right No growth in 48 hours. Laboratory Tests Past 24 Hrs 05/16/18 05:30 Sodium 134 L Potassium 3.7 Chloride 96 L Carbon Dioxide 29.0 Anion Gap 9 BUN 20 H Creatinine 0.74 Estim Creat Clear Calc 78.78 Est GFR (MDRD) Af Amer 134 Est GFR (MDRD) Non-Af 111 BUN/Creatinine Ratio 27.0 H Glucose 105 Calcium 8.1 L Discharge Diet: 6 Cup Fluid Restriction, 2000 mg Sodium Diet Discharge Activity: Return to Normal Activity Weight Bearing Status: Weight bearing as tolerated Call your doctor if you observe: Fever of 101 or Higher, Shortness of breath, Fainting spells, Swelling in the ankles, Chest pain Home Medications: Medications to take at Discharge Aspirin [Aspirin, Baby] 81 mg PO DAILY@0800 04/20/18 Cholecalciferol (Vitamin D3) [Vitamin D3] 5,000 unit PO DAILY 04/20/18 Gemfibrozil [Lopid] 600 mg NG BIDAC 04/20/18 Multivitamin [Daily Multiple Vitamin] 1 each PO DAILY 04/20/18 Oxycodone HCl/Acetaminophen [Percocet 5-325] 1 - 2 tablet PO Q6H PRN PRN 05/11/18 Promethazine HCl 25 mg PO Q6H PRN 05/11/18 Albuterol Inhaler [Ventolin Hfa] 2 puff INHALATION Q4H PRN PRN #1 inhaler 05/16/18 Furosemide [Lasix] 40 mg PO DAILY #30 tablet 05/16/18 Lisinopril [Zestril] 5 mg PO BID #30 tablet 05/16/18 Potassium Chloride [K-Dur] 10 meq PO DAILY #30 tablet 05/16/18 Following Prescrptions Were Given to Patient: Albuterol Inhaler [Ventolin Hfa] 2 puff INHALATION Q4H PRN PRN #1 inhaler PRN Reason: Shortness Of Breath Furosemide [Lasix] 40 mg PO DAILY #30 tablet Potassium Chloride [K-Dur] 10 meq PO DAILY #30 tablet Lisinopril [Zestril] 5 mg PO BID #30 tablet Other Amb Orders: Chest PA and Lateral [RAD] Time Frame: 1 Month, Location: None Selected Basic Metabolic Profile (BMP) Time Frame: 1 Week, Location: Laboratory Primary Care Physician: Swetha Pedersen DO [Primary Care Provider] - In 1 Week Please Follow Up With: Daniel Tomas When: 05/23/18 Patient Instructions: Discharge Instructions for Thoracentesis Disposition: Home Minutes spent on discharge:: 36 Patient Condition:: Good Medical Necessity - Tobacco Use Smoking Status: Former smoker Meaningful Use Info Meaningful Use Diagnoses (Choose all that apply): CHF - CHF ROCKY/ARB ordered at discharge?: Yes Documented LVEF (%): 65 Code Visit Inpatient E&M: 41445 Disch Hosp
--- NOTE | 2018-05-16 13:45 | DS.PCM_ITS ---
Discharge Date and Diagnosis - Problem List Patient Problems: Active and Suspected Problems Pleural effusion (Acute) Heart failure with preserved ejection fraction (Acute) Date of Admission: 05/11/18 Date of Discharge: 05/16/18 - Primary Discharge Diagnosis Active and Suspected Problems Pleural effusion (Acute) Heart failure with preserved ejection fraction (Acute) 1. acute HFpEF * EF 65% * has diuresed well since he has been here, though his weights do not reflect it. * I suspect patient received a lot of fluids during his 12 day stay at [facility], which at one point he was in the ICU ([facility] unable to be ac cessed at this time) * Continue with lasix, lisinopril * records from [facility] were reviewed. Records were scant and not useful: no notes, Is/Os, etc. 2. Presumed gram-negative pneumonia * ruled out * work up here has been unremarkable * culture results have been negative * antibiotics DC'd 05/14 * no leukocytosis * did have a low-grade temps * temp of 38.4 today. 3. Pleural effusion * transudative * underwent thoracentesis 05/14 and drained 1420 cc * likely due to fluids he received during his long hospitalization at [facility] (12 day hospitalization and 4 of those days were in the ICU) * continue with lasix * recheck CXR on 05/16 * will need follow up CXR in 4-6 weeks after discharge. 4. s/p Ventral hernia repair * per patient, the surgeon said it was more complicated than he anticipated, requiring a partial colectomy * per wound care pictures: wound healing well. * reviewed records from [facility], and was unfortunately lacking. No op-reports, progress notes, etc. * patient to follow up with Dr. Tomas 05/23 - Secondary Discharge Diagnosis Chronic Problems Essential hypertension (Chronic) Dyslipidemia (Chronic) Hospital Course and Treatment Imaging Results: 05/16/18 11:00 Chest PA and Lateral [RAD] Clinical Impression(s) from Imaging Studies Acute Abdomen Series 05/11/18 13:30 Chest X-Ray 05/12/18 09:17 IMPRESSION: Large right pleural effusion. Electronically Signed: Scottie Abbasi MD at 17:55 EDT , Service support , Thoracentesis Ultrasound 05/14/18 07:41 IMPRESSION: Ultrasound-guided right thoracentesis. Electronically Signed: Iván Paige MD at 12:53 EDT Tel [phone], Service support , Chest X-Ray 05/14/18 10:15 IMPRESSION: Status post right thoracentesis. No evidence of pneumothorax. Findings suggestive of mild bibasilar linear atelectasis. Electronically Signed: Iván Paige MD at 13:48 EDT Tel [phone], Service support , Chest X-Ray 05/16/18 11:00 IMPRESSION: Small right pleural effusion. Increased markings at both lung bases. This is suggestive of atelectasis. Electronically Signed: Iván Paige MD at 13:24 EDT Tel [phone], Service support , Consultations 05/12/18 10:38 Consult: Onc/Wound/manager water wastewater Routine Comment: Operations: None Procedures: Thoracentesis, Transthoracic echo Summary of Care Provided: The patient is a 73 year old M resents with cough and shortness of breath. Chest x-ray was consistent with pulmonary edema as well as pleural effusion. There was some concern for pneumonia given patient's recent hospitalization for ventral hernia repair. Pneumonia workup was unremarkable so antibiotics were discontinued on the and patient continued to do well. Patient was diuresed with Lasix and also underwent a thoracentesis on the that removed 1420 cc. The fluid was analyzed and was deemed to be transudate of. Is feeling that the patient's pleural effusion and pulmonary edema is due to heart failure. Patient's ejection fraction was 60%.-Patient underwent heart failure due to copious amounts of fluid the patient received during his hospitalization for a ventral hernia repair that was more complex and initially thought. Patient stated that he had a 12-day hospital stay in for for which were in the ICU. Presumably, the patient received a lot of fluids during that time I am, however, I do not have objective data to substantiate that. We did request records from [facility], however records were only showed some lab work but did not reveal notes, progress notes etc. Patient will be discharged today and he will be on Lasix 40 mg daily as well as potassium replacement while he is on Lasix. Patient will require BMP in about a week's time to see how his creatinine and potassium are doing. For the patient's pulmonary edema and pleural effusion, patient will require a chest x-ray in about 4 weeks. Patient has a follow-up appointment already scheduled with his surgeon on the . Patient did drop down to 86% on room air with ambulation, therefore, patient will require oxygen at 2 L/min with activity. [] Patient Problems: Active and Suspected Problems Pleural effusion (Acute) Heart failure with preserved ejection fraction (Acute) - Physical Exam Vital Signs Temp Pulse Resp BP Pulse Ox 36.9 C 64 18 105/48 L 96 05/16/18 10:02 05/16/18 10:02 05/16/18 11:53 05/16/18 10:02 05/16/18 11:52 Oxygen Flow Rate (L/min) [ 2 AMBULATION with Oxygen] Oxygen Flow Rate (L/min) 2 Oxygen Delivery Method Nasal Cannula Weight: 103.8 kg Body Mass Index (BMI) 29.3 Intake and Output for Last 24 Hours 05/14/18 05/15/18 05/16/18 23:59 23:59 23:59 Intake Total 1433 / 1433 2514 / 2514 1140 / 1140 Output Total 2845 / 2845 250 / 250 725 / 725 Balance -1412 / -1412 2264 / 2264 415 / 415 Microbiology Past 72 Hours 05/14/18 10:00 Gram Stain - Final Fluid - Thoracentesis Fluid Body Fluid Culture - Preliminary No growth-Final to follow Anaerobic Culture - Preliminary No growth in 48 hours. 05/11/18 17:20 Gram Stain - Final Sputum, Expectorated/Coughed Respiratory Culture - Final 05/11/18 16:20 Blood Culture - Preliminary Blood Culture (Wb) - Anticubital Right No growth in 48 hours. 05/11/18 16:08 Blood Culture - Preliminary Blood Culture (Wb) - Anticubital Right No growth in 48 hours. Laboratory Tests Past 24 Hrs 05/16/18 05:30 Sodium 134 L Potassium 3.7 Chloride 96 L Carbon Dioxide 29.0 Anion Gap 9 BUN 20 H Creatinine 0.74 Estim Creat Clear Calc 78.78 Est GFR (MDRD) Af Amer 134 Est GFR (MDRD) Non-Af 111 BUN/Creatinine Ratio 27.0 H Glucose 105 Calcium 8.1 L Discharge Diet: 6 Cup Fluid Restriction, 2000 mg Sodium Diet Discharge Activity: Return to Normal Activity Weight Bearing Status: Weight bearing as tolerated Call your doctor if you observe: Fever of 101 or Higher, Shortness of breath, Fainting spells, Swelling in the ankles, Chest pain Home Medications: Medications to take at Discharge Aspirin [Aspirin, Baby] 81 mg PO DAILY@0800 04/20/18 Cholecalciferol (Vitamin D3) [Vitamin D3] 5,000 unit PO DAILY 04/20/18 Gemfibrozil [Lopid] 600 mg NG BIDAC 04/20/18 Multivitamin [Daily Multiple Vitamin] 1 each PO DAILY 04/20/18 Oxycodone HCl/Acetaminophen [Percocet 5-325] 1 - 2 tablet PO Q6H PRN PRN 05/11/18 Promethazine HCl 25 mg PO Q6H PRN 05/11/18 Albuterol Inhaler [Ventolin Hfa] 2 puff INHALATION Q4H PRN PRN #1 inhaler 05/16/18 Furosemide [Lasix] 40 mg PO DAILY #30 tablet 05/16/18 Lisinopril [Zestril] 5 mg PO BID #30 tablet 05/16/18 Potassium Chloride [K-Dur] 10 meq PO DAILY #30 tablet 05/16/18 Following Prescrptions Were Given to Patient: Albuterol Inhaler [Ventolin Hfa] 2 puff INHALATION Q4H PRN PRN #1 inhaler PRN Reason: Shortness Of Breath Furosemide [Lasix] 40 mg PO DAILY #30 tablet Potassium Chloride [K-Dur] 10 meq PO DAILY #30 tablet Lisinopril [Zestril] 5 mg PO BID #30 tablet Other Amb Orders: Chest PA and Lateral [RAD] Time Frame: 1 Month, Location: None Selected Basic Metabolic Profile (BMP) Time Frame: 1 Week, Location: Laboratory Primary Care Physician: Swetha Pedersen DO [Primary Care Provider] - In 1 Week Please Follow Up With: Daniel Tomas When: 05/23/18 Patient Instructions: Discharge Instructions for Thoracentesis Disposition: Home Minutes spent on discharge:: 36 Patient Condition:: Good Medical Necessity - Tobacco Use Smoking Status: Former smoker Meaningful Use Info Meaningful Use Diagnoses (Choose all that apply): CHF - CHF ROCKY/ARB ordered at discharge?: Yes Documented LVEF (%): 65 Code Visit Inpatient E&M: 62123 Disch Hosp
--- NOTE | 2018-05-16 14:38 | CM.UR ---
DEVON DARBY NOTE: [facility] confirmed that O2 can be delivered to pt's room today prior to discharge and they will arrange delivery time with pt to his home. [id number] cost is $33/month for pt and he was made aware. Cristopher BSN DEVON CM
--- NOTE | 2018-05-16 14:51 | CASEMGMT ---
DEVON CM NOTE: Discharge instructions, summary, resumption of HHC: MCC and PT order, and clinical information faxed to [facility] @ . Sana @ [facility] confirmed the faxed information was recevied. She was aware pt is discharging today 05-16-18 and stated they would resume HHC tomorrow 05/17/18. Cristopher EDMOND RN RM
--- NOTE | 2018-05-17 12:36 | CASEMGMT ---
DEVON DARBY Discharge Follow-Up Phone Call. RADHA: 13 Strata: 4 Discharge Date: 05-16-18 Adm Dx: [facility] DEVON DARBY spoke with pt about how he has been doing since he was discharged from the hospital. Pt states, I've been doing good, all things considered. Pt states his breathing has been okay and that the O2 was delivered and he is still currently using it and has not had any increased SOB. Pt states he is pretty sure he has a scale at his home, but he is not certain. Encouraged pt to get a scale if he does not have one and discussed importance of weighing daily and discussed when he should notify his MD. Pt reports that [facility] contacted his niece, Anna, about seeing pt today but they have not called them back to make arrangements. [facility] phone number provided. Pt states he is aware of the follow-up appt with Dr Tomas on 05/24/18, CXR for in 1 month, and labs in 1 week. Pt reports he has not made a follow-up appt with Dr Pedersen for in one week but he plans to do so soon. When asked pt about the prescriptions he was given on d/c, he asked for DEVON DARBY to talk with his niece, Anna. Anna states they have not picked the prescriptions up yet but that she was getting ready to do that today. Provided DEVON DARBY's phone number if she or pt would have any further questions or concerns and thanked both of them for taking the time to talk with DEVON DARBY today and for choosing [facility]. Cristopher EDMOND RN, CM
[2018-05-17 15:20] LABS: pH, Body Fluid 11254 7.5 (Not Estab.)
== END 2018-05-16 17:27 | disposition home or self-care (01) | DRG 291 ==
LOC: ED 13:15 → MS2 16:05
PROVIDERS: Student in an Organized Health Care Education/Training Program; Admitting Provider Internal Medicine; Emergency Provider Emergency Medicine; Family Provider Internal Medicine; PCP Internal Medicine
DX: I11.0 Hypertensive heart disease with heart failure (principal); I50.31 Acute diastolic (congestive) heart failure; J91.8 Pleural effusion in other conditions classified elsewhere; I10 Essential (primary) hypertension; E78.5 Hyperlipidemia, unspecified; R62.7 Adult failure to thrive; D63.8 Anemia in other chronic diseases classified elsewhere; Z90.49 Acquired absence of other specified parts of digestive tract; Z87.891 Personal history of nicotine dependence
CPT/HCPCS: 32555; 36415; 71045; 71046; 74022; 80048; 81001; 82945; 83605; 83615; 83735; 83880; 83986; 84156; 84157; 85025; 85027; 85610; 85730; 87040; 87070; 87075; 87205; 87449; 87804; 88108; 88305; 88313; 89050; 93306; 94640; 94667; 94668; 97161; 97166; 97530; 97535; 97802; 99284; J7050; A4216; J0744; J1940; J7799

== ENCOUNTER → 2018-05-25 13:25 | Outpatient (CLI) | payer MEDICARE, SELFPAY ==
[2018-05-25 16:37] LABS: Anion Gap 11 (5-15); BUN 20 mg/dL (7-18); Calcium,Total 9.2 mg/dL (8.5-10.1); Chloride 98 mmol/L (98-107); Creatinine, Serum 0.87 mg/dL (0.70-1.30); EST Glomerular Filtration Rate 92 mL/min (>60); Est Glom Filt Rate - Afr Amer 111 mL/min (>60); Glucose 89 mg/dL (74-106); Potassium 4.5 mmol/L (3.5-5.1); Sodium Level 137 mmol/L (136-145)
== END ==
LOC: RAD.FUTURE 13:29 → MTLAB 13:42
PROVIDERS: Family Provider Internal Medicine; PCP Internal Medicine
DX: J90 Pleural effusion, not elsewhere classified (principal); E87.6 Hypokalemia
CPT/HCPCS: 36415; 80048

== ENCOUNTER → 2018-06-19 14:19 | Outpatient (CLI) | payer MEDICARE, SELFPAY ==
--- NOTE | 2018-06-19 14:27 | RAD_ITS ---
STUDY: X-RAY CHEST REASON FOR EXAM: Male, 73 years old. Patient states pleural effusion, follow-up TECHNIQUE: PA and lateral views of the chest on 3 images. COMPARISON: PA and lateral chest x-ray May 16, 2018 FINDINGS: There is a small posterolateral right pleural effusion, improved from previous exam. Aeration at the lung bases also improved, with residual linear subsegmental atelectasis noted in the right base. Normal size heart. Normal mediastinum and jason. Normal visualized pulmonary arteries. Normal visualized aortic arch and descending thoracic aorta. There are stable multilevel degenerative changes of the visualized thoracic spine. 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 There is no demonstrated abnormality of the visualized soft tissue structures of the upper abdomen. RAD/Chest PA and Lateral IMPRESSION: Small right pleural effusion and bibasilar aeration improved since May 16, 2018. Electronically Signed: Jose Dong MD at 19:44 EST , Service support ,
[2018-06-19 16:00] LABS: PSA,Total- Diagnostic 3.71 ng/mL (0.0-4.0)
== END ==
PROVIDERS: Family Provider Internal Medicine; PCP Internal Medicine
DX: C61 Malignant neoplasm of prostate (principal); J90 Pleural effusion, not elsewhere classified
CPT/HCPCS: 36415; 71046; 84153

== ENCOUNTER → 2018-07-10 09:44 | Outpatient (CLI) | payer MEDICARE, SELFPAY ==
[2018-05-14 09:45] VITALS: BMI 29.3
--- NOTE | 2018-07-10 09:50 | RAD_ITS ---
STUDY: X-RAY CHEST REASON FOR EXAM: Male, 73 years old. Chest pain TECHNIQUE: Frontal view and bilateral decubitus views of the chest COMPARISON: 06/19/2018 FINDINGS: The lungs are clear. There are no pleural effusions. There is no pneumothorax. The heart is normal in size. The visualized osseous structures are within normal limits. RAD/Special CXR (Obl/Decub/A/L) IMPRESSION: Clear lungs. No pleural effusions. Electronically Signed: Anson Chua, at 17:45 EST Tel , Service support ,
--- NOTE | 2018-07-10 09:50 | RAD_ITS ---
STUDY: X-RAY CHEST REASON FOR EXAM: Male, 73 years old. Chest pain TECHNIQUE: Frontal view and bilateral decubitus views of the chest COMPARISON: 06/19/2018 FINDINGS: The lungs are clear. There are no pleural effusions. There is no pneumothorax. The heart is normal in size. The visualized osseous structures are within normal limits. RAD/Chest PA and Lateral IMPRESSION: Clear lungs. No pleural effusions. Electronically Signed: Anson Chua, at 17:45 EST Tel , Service support ,
--- NOTE | 2018-07-10 09:55 | RAD_ITS ---
STUDY: X-RAY CHEST REASON FOR EXAM: Male, 73 years old. Chest pain TECHNIQUE: Frontal view and bilateral decubitus views of the chest COMPARISON: 06/19/2018 FINDINGS: The lungs are clear. There are no pleural effusions. There is no pneumothorax. The heart is normal in size. The visualized osseous structures are within normal limits. RAD/Special CXR (Obl/Decub/A/L) IMPRESSION: Clear lungs. No pleural effusions. Electronically Signed: Anson Chua, at 17:46 EST Tel , Service support ,
--- OUTSIDE RECORDS SUMMARY | 2018-08-26 09:44 | XMS RPT_ITS | Continuity of Care Document ---
:1945 Author Organization [facility] Address [address] [place] [address] Phone Care Team Providers Name Role Phone Swetha Pedersen DO Unavailable Carolyn VICKERS MD , William Dash Unavailable Dr. Josef Patton Unavailable Roberto Flores MD Unavailable Mckenzie Love Unavailable Unavailable ALYSSA Stahl Unavailable Unavailable Unavailable Unavailable Problems Name Dates Details Annual Medicare Phyiscal WITHOUT abnormal findings (Renamed from Encounter for general adult medical examination without abnormal findings) (Z00.00, V70.9) Status: Active Anxiety (F41.9, 300.00) Status: Active Bilateral inguinal hernia without obstruction or gangrene (K40.20, 550.92) Status: Active BMI 30.0-30.9,adult (Z68.30, V85.30) Status: Active BMI 32.0-32.9,adult (Z68.32, V85.32) Status: Active BMI 33.0-33.9,adult (Z68.33, V85.33) Status: Active BMI 33.0-33.9,adult (Z68.33, V85.33) Status: Active BMI 34.0-34.9,adult (Z68.34, V85.34) Status: Active Body mass index 33.0-33.9, adult (Z68.33, V85.33) Status: Active Calculus of gallbladder w/o mention of cholecystitis or obstruction (K80.20, 574.20) Status: Active checking immunity Status: Active Cholelithiasis Status: Active Colon Polyp (K63.5, 211.3) Comments: last scope 2014 -- dr Patton did last scope Status: Active Degenerative disc disease (722.6) Status: Active Elevated LDL cholesterol level (E78.00, 272.0) Comments: LDL 151does not want medicine , will work on diet and exrcise(on gemfibrozil for TG) Status: Active Elevated LFTs (R94.5, 790.6) Comments: total bilirubin 1.5Pt has hepatocellular cancer and was started on gemfibrozil 06/15.Will speak to Dr Ramos (GI) Status: Active Elevated PSA (Renamed from Elevated prostate specific antigen (PSA)) (R97.20, 790.93) Comments: Prostate canccer (07/28/16 prostate biopsy), Dr Miller Status: Active Encounter for screening for malignant neoplasm of colon (Renamed from Special screening for malignant neoplasms, colon) (Z12.11, V76.51) Comments: with recent colon resection cant do any scoping for h/o colon polyps Status: Active Encounter for screening for malignant neoplasm of prostate (Renamed from Screening for prostate cancer) (Z12.5, V76.44) Comments: follows up with urology and he follows psa withh/o elevation Status: Active Hepatocellular carcinoma (C22.0, 155.0) Comments: Rodolfo Zavala MD with , next OV 04/15, eevry [address] Yadav is surgeon .Blood work 1 weeek before.01/16/16: every 3 month: MRI:mass demonstates interval decrease in size with no enhancem ent [place] [facility] [place] recurrent disease,Diagnosed in 2015: 2 procedure Y 90 to reduce the size of the mass, january and april 2015 Status: Active High triglycerides (E78.1, 272.1) Comments: triglyceride elevated, Severe Diet(cut carbohydrates), exercise , weight lossStrict glycemic controlGemfirozil(lopid) 600 mg BID(started 06/15)exercise walk daily 15-20 minutes Status: Active History of hepatitis C (Z86.19, V12.09) Status: Active Hyperglycemia (R73.9, 790.29) Comments: new dx - abnormal gluicose intolerance Status: Active Hypertensive 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, 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) Status: Active Low HDL (under 40) (E78.6, 272.5) Status: Active Lymphocytosis (D72.820, 288.61) Status: Active 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, 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 stable-continue present regimen Status: Active Mixed hyperlipidemia (E78.2, 272.2) Status: Active Need for prophylactic vaccination and inoculation against influenza (Z23, V04.81) Status: Active Nonsmoker (Z78.9, V49.89) Status: Active Non-smoker (Z78.9, V49.89) Status: Active Physical exam WITHOUT abnormal findings (Renamed from Encounter for routine adult health examination without abnormal findings) (Z00.00, V70.0) Status: Active Prostate cancer (C61, 185) Status: Active screen Status: Active Sinusitis, acute (J01.90, 461.9) Status: Active Stress reaction (F43.0, 308.9) Status: Active Viral hepatitis B without mention of hepatic coma, acute or unspecified, without mention of hepatitis delta (070.30) Status: Active Vitamin D deficiency (E55.9, 268.9) Status: Active Medications Name Dates Details AmLODIPine Besylate 5 MG Oral Tablet 1 (one) Tablet daily for 90 days Quantity: 90 {Tablet} Refills: 1 Ordered:26-Mar-2018 Cinthia Pedersen DO, DO, Kathleen Start : 26-Mar-2018 Active ASPIRIN LOW DOSE, 81MG (Oral Tablet) 1 Tablet QD for 30 days Quantity: 30 {Tablet} Refills: 0 Ordered:08-Apr-2013 Lisa Potter DO Start : 08-Apr-2013 Active Gemfibrozil 600 MG Oral Tablet 1 (one) Tablet two times daily for 90 days Quantity: 180 {Tablet} Refills: 2 Ordered:21-Nov-2017 Cinthia Pedersen DO, DO, Kathleen Start : 21-Nov-2017 Active Lisinopril 5 MG Oral Tablet 1 (one) Tablet bid for 90 days Quantity: 180 {Tablet} Refills: 1 Ordered:14-Jun-2018 Cinthia Pedersen DO, DO, Kathleen Start : 14-Jun-2018 Active Comments:Dr.Eric Tovar adjusted medication at hospital--new dose MULTIVITAMIN (Oral Liquid) for 0 days Refills: 0 Ordered:26-Mar-2018 Jennifer Stahl LPNActive Vitamin D (Cholecalciferol) 1000 UNIT Oral Capsule 5 qd (1000 UNIT) Active AMLODIPINE BESY-BENAZEPRIL HCL, 5-40MG (Oral Capsule) 1 Capsule qd for 0 days Quantity: 30 {Capsule} Refills: 5 Ordered:10-Oct-2011 Josefina Payton LPN Start : 10-Oct-2011 End : 10-Oct-2011 Inactive AUGMENTIN, 875-125MG (Oral Tablet) 1 (one) Tablet Tablet bid for 0 days Quantity: 20 {Tablet} Refills: 0 Ordered:11-Feb-2014 Tia Dixon LPN Start : 16-Jan-2014 End : 11-Feb-2014 Inactive NIACIN ER, 1000MG (Oral Tablet Extended Release) 2 tabs bid for 0 days Refills: 0 Ordered:08-Apr-2013 Mila Osullivan End : 08-Apr-2013 Inactive PREDNISONE, 20MG (Oral Tablet) TAD Tablet UAD for 0 days Quantity: 13 {Tablet} Refills: 0 Ordered:29-Feb-2008 Mila Osullivan Start : 29-Feb-2008 End : 27-Oct-2008 Inactive Comments:1 TAB BID FOR 4 DAYS , 1 TAB DAILY FOR 4 DAYS THEN 1/2 TAB DAILY 2 DAYS TOPICORT LP, 0.05% (External Cream) APPLY TO AFFECTED AREA Cream Twice daily for 0 days Quantity: 60 {Cream} Refills: 1 Ordered:01-Apr-2011 Mila Osullivan Start : 29-Feb-2008 End : 01-Apr-2011 Inactive Vitamin D3 2000 UNIT Oral Capsule 1 (one) Capsule daily for 30 days Quantity: 30 {Capsule} Refills: 0 Ordered:23-Sep-2016 Farhan Gary MD Start : 16-Aug-2016 End : 15-Sep-2016 Inactive Vitamin D3 52791 UNIT Oral Capsule 1 (one) Capsule Capsule once a week for 60 days Quantity: 8 {Capsule} Refills: 0 Ordered:21-Jun-2016 Denisse Paige LPN Start : 21-Jun-2016 End : 20-Aug-2016 Inactive CYMBALTA, 60MG (Oral Capsule Delayed Release Particles) 1 (one) Capsule DR Part Capsule DR Part daily for 0 days Quantity: 30 {Capsule} Refills: 3 Ordered:14-Apr-2014 Mila Osullivan Start : 11-Feb-2014 End : 14-Apr-2014 Discontinued HYDROCODONE-ACETAMINOPHEN, 5-325MG (Oral Tablet) 1 (one) Tablet Tablet q6-8 hrs prn for 0 days Quantity: 30 {Tablet} Refills: 0 Ordered:14-Apr-2014 Mila Osullivan Start : 11-Feb-2014 End : 14-Apr-2014 Discontinued Allergies and Adverse Reactions Name Dates Details No Known Allergies (Allergy) Onset: 10-Aug-2015 Status: Active No Known Drug Allergies (Allergy) Status: Active Past Medical History Name Dates Details Abnormal lung sounds (R09.89, 786.7) Status: Resolved as of 16-Jul-2018 Benign prostatic hyperplasia with urinary obstruction and other lower urinary tract symptoms (N40.1, 600.21) Comments: PSA 4.5 (12/07/15) DR Miller 01/07/16 .Repeat in 6 months. Status: Inactive as of 16-Aug-2016 Woody involving 30-39% of body surface with 10-19% third degree woody (T31.31, 948.31) Comments: [facility] Status: Resolved as of 14-Apr-2014 Chest pain (R07.9, 786.59) Status: Resolved as of 20-Apr-2009 Depression (F32.9, 311) Status: Resolved as of 14-Apr-2014 Dermatitis (L30.9, 692.9) Status: Inactive as of 06-Jan-2009 Hyponatremia (E87.1, 276.1) Status: Resolved as of 12-Oct-2009 Leg swelling (M79.89, 729.81) Status: Resolved as of 14-Apr-2014 LEUKOCYTOSIS, NOS (288.8) Status: Resolved as of 08-Apr-2013 Other and unspecified alcohol dependence, unspecified drinking behavior (F10.20, 303.90) Comments: sober 29 years Status: Resolved as of 01-Apr-2011 Pleural effusion on right (J90, 511.9) Status: Resolved as of 16-Jul-2018 Pneumonia (J18.9, 486) Comments: causing hypoxia -- do 6mwa at appt in May Status: Resolved as of 16-Jul-2018 Screening examination for pulmonary tuberculosis (Z11.1, V74.1) Status: Inactive as of 30-Mar-2012 Procedures Date Value Details 10-Jul-2018 Special CXR (Obl/Decub/A/L) Result: Comments: See Note; NOTES: [facility] Imaging Services [address] [place] [address] Special CXR (Obl/Decub/A/L) MR#: [id number] Acct: [id number] Name: LUCAS EAST Rep # : [id number] : 1945 M 73 From: Anson Chua MD PCP: Swetha Pedersen DO Status: REG CLI Study: Special CXR (Obl/Decub/A/L) Date of Exam: 07/10/18 Exam# [id number] Ordering Dr: Swetha Pedersen D O STUDY: X-RAY CHEST REASON FOR EXAM: Male, 73 years old. Chest pain TECHNIQUE: Frontal view and bilateral decubitus views of the chest COMPARISON: 06/19/2018 F INDINGS: The lungs are clear. There are no pleural effusions. There is no pneumothorax. The heart is normal in size. The visualized osseous structures are within normal limits. RAD/Special CXR (Obl/Decub/A/L) IMPRESSION: Clear lungs. No pleural effusions. Electronically Signed: Anson Chua, at 17:46 EST Tel , Ser vice support , CC: Swetha Pedersen DO Transit Clerk: Signed 10-Jul-2018 Chest PA and Lateral Result: Comments: See Note; NOTES: [facility] Imaging Services [address] [place] [address] Chest PA and Lateral MR#: [id number] Acct: [id number] Name: LUCAS EAST Rep #: [id number] : 1945 M 73 From: Anson Chua MD PCP: Swetha Pedersen DO Status: REG CLI Study: Chest PA and Lateral Date of Exam: 07/10/18 Exam# [id number] Ordering Dr: Swetha Pedersen DO STUDY: X-R AY CHEST REASON FOR EXAM: Male, 73 years old. Chest pain TECHNIQUE: Frontal view and bilateral decubitus views of the chest COMPARISON: 06/19/2018 FINDINGS: The lungs are clear. There are no pleural effusions. There is no pneumothorax. The heart is normal in size. The visualized osseous structures are within normal limits. RAD/Chest PA and Lateral IMPRESSION: Clear lungs. No pleural effusions. Electronically Signed: Anson Chua, at 17:45 EST Tel , Service support [phone], CC: Swetha Pedersen DO Transit Clerk: Signed 10-Jul-2018 Special CXR (Obl/Decub/A/L) Result: Comments: See Note; NOTES: [facility] Imaging Services [address] [place] [address] Special CXR (Obl/Decub/A/L) MR#: [id number] Acct: [id number] Name: LUCAS EAST Rep # : [id number] : 1945 M 73 From: Anson Chua MD PCP: Swetha Pedersen DO Status: REG CLI Study: Special CXR (Obl/Decub/A/L) Date of Exam: 07/10/18 Exam# [id number] Ordering Dr: Swetha Pedersen STUDY: X-RAY CHEST REASON FOR EXAM: Male, 73 years old. Chest pain TECHNIQUE: Frontal view and bilateral decubitus views of the chest COMPARISON: 06/19/2018 F INDINGS: The lungs are clear. There are no pleural effusions. There is no pneumothorax. The heart is normal in size. The visualized osseous structures are within normal limits. RAD/Special CXR (Obl/Decub/A/L) IMPRESSION: Clear lungs. No pleural effusions. Electronically Signed: Anson Goldmanjavieralo, at 17:45 EST Tel , Ser vice support , CC: Swetha Pedersen DO Transit Clerk: Signed 19-Jun-2018 Chest PA and Lateral Result: Comments: See Note; NOTES: [facility] Imaging Services [address] [place] [address] Chest PA and Lateral MR#: [id number] Acct: [id number] Name: LUCAS EAST Rep #: [id number] : 1945 M 73 From: Jamar Dong MD PCP: Swetha Pedersen DO Status: REG CLI Study: Chest PA and Lateral Date of Exam: 06/19/18 Exam# [id number] Ordering Dr: Jose Tovar DO STUDY: X-RAY C HEST REASON FOR EXAM: Male, 73 years old. Patient states pleural effusion, follow- up TECHNIQUE: PA and lateral views of the chest on 3 images. COMPARISON: PA and lateral chest x-ray May 16, 2018 FINDINGS: There is a small posterolateral right pleural effusion, improved from previous exam. Aeration at the lung bases also improved, with residual linear subseg mental atelectasis noted in the right base. Normal size heart. Normal mediastinum and jason. Normal visualized pulmonary arteries. Normal visualized aortic arch and descending thoracic aorta. There are stable multilevel degenerative changes of the visualized thoracic spine. 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 There is no demonstrated abnormality of the vi sualized soft tissue structures of the upper abdomen. RAD/Chest PA and Lateral IMPRESSION: Small right pleural effusion and bibasilar aeration im proved since May 16, 2018. Electronically Signed: Jose Dong MD at 19:44 EST , Service support , CC: Jose Tovar DO; Geno Pedersen DO Transit Clerk: Signed 11-May-2018 Emergency Department Summary Result: Comments: See Note; NOTES: [facility] Medical Records Department [address] [place] [address] Emergency Department Summary 05/11/18 1307 MR#: [id number] Acct: [id number] Name: LUCAS EAST Rep #: [id number] : 1945 73 From: Cristina Lyles MD PCP: Swetha Pedersen DO Status: REG ER - ER Visit Summary Date of Service: 05/11/18 Chief Complaint: Wound check Histo ry of Present Illness: The patient is a 73 M presenting for wound check. Patient had surgery at [facility] on April 25 for a strangulated hernia. This was complicated by sepsis. He was in [facility] for 12 days. He was discharged 1 week ago. He has home nursing that changes his dressing once daily. They were concerned about a foul odor yesterday. Today he developed a fever and was advis ed to come to the ED for further evaluation. Physical Examination: Vitals are stable. Patient is afebrile. Alert no acute distress. HEENT exam is unremarkable. Neck is supple. Lungs are clear and equal bilaterally. Heart is regular rate and rhythm. Abdomen is soft nontender nondistended. Incision intact with mild erythema Extremities are unremarkable. Skin is warm and dry. No focal neurologic deficit . Remainder of exam is unremarkable. Emergency Department Course and Treatment: CBC shows a hemoglobin 9.7. Chemistries show sodium 130, glucose 136. Urinalysis unremarkable. Abdominal series shows p leural effusion versus infiltrate; ileus. Patient was given vancomycin and Zosyn for healthcare acquired pneumonia. Discussed with Dr. Meeks at [facility]. He is in agreement that the patient can stay at [facility] as the patient wishes. Discussed with Dr. Hyde and patient will be admitted. Disposition: Admission Impression: Healthcare acquired pneumonia This note was generated with Ark[employer] dictation software. It may contain incorrect words, spelling, and punctuation that were not noted in review of the chart prior to signing ED Disposition - Plan for ED Patient: Chief Complaint: Wound Check Referrals: Swetha Pedersen DO [Primary Care Provider] - What to do if you have Problems For any increased pain, shortness of breath, bleeding, nausea or vomiting, chest pain, or any unexpect ed problems, contact your Primary Care Provider. Call [facility] ([phone]) or report to the closest Emergency Room. Call 911 if necessary. 05/11/18 1601 <Electronically signed by Shayne Lyles MD> Date Cristina Lyles MD Cosigner Signature (If Indicated): Date CC: Swetha Pedersen DO 11-May-2018 Acute Abdomen Inc Chest Result: Comments: See Note; NOTES: [facility] Imaging Services [address] [place] [address] Acute Abdomen Inc Chest MR#: [id number] Acct: [id number] Name: LUCAS EAST Rep #: [id number] : 1945 M 73 From: Benton Toledo MD PCP: Swetha Pedersen DO Status: REG ER Study: Acute Abdomen Inc Chest Date of Exam: 05/11/18 Exam# [id number] Ordering Dr: Cristina Lyles MD [facility] DY: X-RAY - ACUTE ABDOMINAL SERIES REASON FOR EXAM: Male, 73 years old. Recent hernia repair. Fever. TECHNIQUE: Single view of the chest. Supine, and erect view(s) of the abdomen were obtained. KELLEN RISON: CT scan 04/20/2018. FINDINGS: The chest x-ray shows extensive density in the lower half of the right lung consistent with atelectasis or infiltrate along with pleural effusion. In the abdomen and pelvis, there or a few air-fluid levels some of which are in small bowel and suggest ileus. However no definite dilated loops of bowel or evidence for obstruction and no definite free air. Cholelithiasis is seen. Degenerative changes throughout the bones. IMPRESSION: Extensive abnormality the right lung with pleural effusion and atelectasis or infiltrate. Bowel gas pattern suggests ileus. Electronically Signed: Benton Toledo MD at 14:45 EDT , Service support , RAD/Acute Abdomen Inc Chest CC: Cristina Lyles MD; Swetha Pedersen DO Transit Clerk: Signed 21-Apr-2018 Emergency Department Summary Result: Comments: See Note; NOTES: [facility] Medical Records Department [address] [place] [address] Emergency Department Summary 04/21/18 0057 MR#: [id number] Acct: [id number] Name: LUCAS EAST Rep #: [id number] : 1945 73 From: Bobby Walton MD PCP: Swetha Pedersen DO Status: REG ER - ER Visit Summary Date of Service: 04/21/18 Chief Complaint: [] Abdominal pain History of Present Illness: The patient is a 73 M planing of abdominal pain for last hours sudden onset continuous aching cramping sharp and stabbing lower abdomen pain. Associated with nausea. He has had a chronic right inguinal hernia that has been worsening of the last 2 weeks. He does have a history of hepatocellular carcinoma in remission. Physical Examination: [] Vital signs reviewed General: Well-nourished well-developed Head: Normocephalic atraumatic Eyes: Pupils equal round and reactive to light extraocular movements intact ENT: TMs clear no hemotympanum no trauma Neck: Nontender full ra nge of motion Cardiovascular: Regular rate rhythm no murmurs normal S1-S2 Respiratory: No distress clear to auscultation bilaterally chest nontender Abdomen: Mild diffuse lower abdominal tenderness. Sma ll umbilical hernia. Large right inguinal hernia into the scrotum. It is a baseball size. There is induration. Tenderness. Back: Nontender no CVA tenderness Extremities: Nontender active range of motion 4 extremities no trauma Skin: Normal color no trauma Neuro alert oriented cranial nerves II through XII intact normal strength sensation reflexes Test Results: [] Emergency Department Course and Rachel tment: [] Multiple attempts were tried to reduce the hernia with no success. It is too large and indurated. CBC normal. Chemistries normal except sodium 130. Chloride 96. Creatinine 1.5. Coags are negat soledad. CT abdomen pelvis shows small bowel obstruction with incarcerated right inguinal hernia. I do not think the patient needs an NG. Is not having vomiting. Will be transferred to [facility] as our ope rating room is down for cleaning. Discussed with our surgeon on-call Dr. Amezcua and also Dr. Cohen at [facility]. He will be transferred. Given morphine IV fluids and Zofran with good relief of sy mptoms Treatment Plan: [] Disposition: [] Impression: [] Incarcerated right inguinal hernia Small bowel obstruction secondary to incarcerated inguinal hernia Acute renal insufficiency Critical CARE time: 30-74 minutes This note was generated with Ark[employer] dictation software. It may contain incorrect words, spelling, and punctuation that were not noted in review of the chart prior to signing ED Disposition - Plan for ED Patient: Chief Complaint: Abd Pain Referrals: Swetha Pedersen, [Primary Care Provider] - What to do if you have Problems For any increased pain, shortness of breath, bl eeding, nausea or vomiting, chest pain, or any unexpected problems, contact your Primary Care Provider. Call [facility] ([phone]) or report to the closest Emergency Room. Call 911 if necessar y. 04/21/18 0214 <Electronically signed by Bobby Walton MD> Date Bobby Walton MD Cosigner Signature (If Indicated): Date __ CC: Swetha Pedersen DO 20-Apr-2018 Abdomen/Pelvis without Cont Result: Comments: See Note; NOTES: [facility] Imaging Services [address] [place] [address] Abdomen/Pelvis without Cont MR#: [id number] Acct: [id number] Name: LUCAS EAST Rep # : [id number] : 1945 M 73 From: Laverne Ladd MD PCP: Swetha Pedersen DO Status: REG ER Study: Abdomen/Pelvis without Cont Date of Exam: 04/20/18 Exam# [id number] Ordering Dr: Bobby Walton STUDY: CT ABDOMEN AND PELVIS WITHOUT CONTRAST REASON FOR EXAM: Male, 73 years old. LOWER ABD PAIN ALL OVER SINCE 1030PM, EARLIER THIS WEEK N/V/D, HX LIVER CA 2014 RADIATION DOSAGE (If Supplied By Facility): CTDIvol = ( 19.30 ) mGy, DLP = ( 1340.55 ) mGycm TECHNIQUE: Transaxial images were obtained from the dome of the diaphragm to the symphysis pubis without oral contrast, and without intraveno us contrast. Sagittal and coronal images were reconstructed. Individualized dose optimization techniques were used for this CT. COMPARISON: None. FINDINGS: There i s dependent atelectasis in the right and left lung lower lobes. The visualized portions of the heart are within normal limits. Normal liver. There are multiple gallstones. Normal spleen. Normal pancrea s. Normal bilateral adrenal glands. Normal right kidney. Normal left kidney. Normal visualized stomach. There are dilated loops of the small intestine with a non-distended colon consistent with a sma ll bowel obstruction. Due to incarcerated right inguinal hernia measures approximately 9.5 x 7 x 14 cm. Normal colon. The appendix is visualized and appears normal. Normal abdominal aorta. Normal infer ior vena cava. Normal retroperitoneum. Normal urinary bladder. There is an incarcerated right-sided inguinal hernia containing the ileocecal junction. There is an umbilical hernia containing fat measu res 3 cm. Normal osseous structures. CT/Abdomen/Pelvis without Cont IMPRESSION: There are dilated loops of the small intestine with a non-distend ed colon consistent with a small bowel obstruction. There is an incarcerated right inguinal hernia measures approximately 9.5 x 7 x 14 cm. Electronically Signed: Laverne Ladd MD at 0:50 ED T Tel , Service support , CC: Swetha Pedersen DO; Bobby Walton MD Transit Clerk: Signed 10-Nov-2014 Abdomen/Pelvis W/WO Contrast Result: Comments: See Note; NOTES: [facility] Imaging Services [address] [place] [address] CAT Scan Report MR#: [id number] Acct: [id number] Name: LUCAS EAST Rep #: [id number] : 1945 M 69 From: Salvatore Gomes DO PCP: Lisa Potter DO Status: REG CLI Study: Abdomen/Pelvis W/WO Contrast Date of Exam: 11/10/14 Exam# [id number] Ordering Dr: Josef Patton MD [facility] DY: CT ABDOMEN AND PELVIS WITH AND WITHOUT CONTRAST REASON FOR EXAM: Male, 69 years old. Abnormal blood test. Possible liver mass. RADIATION DOSAGE (If Supplied By Facility): CTDIvol = ( 22.62 ) mG y, DLP = ( 3510.50 ) mGycm TECHNIQUE: Transaxial images were obtained from the dome of the diaphragm to the symphysis pubis with oral contrast. 100ml ml of Isovue 300 contrast was administered. Sag ittal and coronal images were reconstructed. COMPARISON: None. FINDINGS: The visualized lung bases are unremarkable. The visualized portions of the heart are w ithin normal limits. There is an ill-defined hypodensity in the dome liver is demonstrates partial fill in on the delayed venous phase images. Hemangioma versus FNH versus malignancy. There are mult iple gallstones in otherwise unremarkable gallbladder. There is no biliary ductal dilatation there are multiple calcified granulomata within the spleen. Normal pancreas. Normal bilateral adrenal gla nds. There is an area of cortical loss in the mid right kidney. A small cyst is seen anteriorly. There is no renal calculi or hydronephrosis. There is evidence of cortical loss posteriorly in the up per left kidney. There is no mass or calculi. There is no hydronephrosis. Normal bilateral ureters. Normal stomach. Normal small intestine. Normal colon. The appendix is visualized and appears eliel l. It lies within a right inguinal hernia. Normal abdominal aorta. Normal inferior vena cava. Normal retroperitoneum. Normal urinary bladder. Enlarged prostate. Seminal vesicles are prominent. The re is no pelvic lymphadenopathy or mass. No free air or free fluid is seen within the abdominal cavity. There are bilateral inguinal hernias. That on the right contains the appendix. There is an umb ilical hernia of omental fat. The abdominal wall is otherwise unremarkable. There are diffuse degenerative changes of the visualized lumbar spine. IMPRESSION: 1 . Abnormal mass within the dome of the right liver. Represents poor enhancement with persistent central hypodensity. Question FNH. Malignancy or an atypical hemangioma cannot be ruled out. Further charis luation with MRI is recommended. 2. Right inguinal hernia containing the appendix. 3. Bilateral renal focal cortical scarring. 4. Enlarged prostate. Electronically Signed: Salavtore Gomes DO 11/10 at 13:34 EDT Tel [phone], Service support [phone], CC: Lisa Potter DO; Josef Patton Transit Clerk: Signed Immunization Name Dates Details Influenza vaccine, split, 3yrs &>, IM (FLULAVAL) on: Apr-2018 Pneumococcal (5 years and under) on: 18-Jan-2017 Pneumococcal conjugate vaccine, 13 valent, IM on: 18-Jan-2017 Family History Unknown Family Member Name Dates Details Father Comments: ETOH, Smoker, CAD Status: Active Mother Comments: Liver Cancer Status: Active Social History Name Dates Details Alcohol Use Comments: Remotely quit alcohol use Status: Active Caffeine Use Comments: 2-4 QD Status: Active Tobacco Use: Former smoker. Comments: Remotely quit tobacco use-04/01/11over 30 years ago Status: Active Smoking Status Name Dates Details Former smoker Vital Signs Date Test Result Details [id number] Pulse 82 /min Comments: Pattern: Regular Respiration Rate 16 /min Comments: Pattern: Unlabored O2 SAT 94 % Comments: Room air BP Systolic 128 mm[Hg] Comments: Patient Position: Sitting; Cuff Location: Left Arm; Cuff Size: Large BP Diastolic 76 mm[Hg] Comments: Patient Position: Sitting; Cuff Location: Left Arm; Cuff Size: Large Weight 228.25 lb Height 72 in Body Mass Index Calculated 30.96 kg/m2 Body Surface Area Calculated 2.25 m2 [id number] Pulse 83 /min Comments: Pattern: Regular Respiration Rate 18 /min Comments: Pattern: Unlabored O2 SAT 98 % Comments: Room air BP Systolic 128 mm[Hg] Comments: Patient Position: Sitting; Cuff Location: Left Arm; Cuff Size: Large BP Diastolic 80 mm[Hg] Comments: Patient Position: Sitting; Cuff Location: Left Arm; Cuff Size: Large Weight 222.125 lb Height 72 in Body Mass Index Calculated 30.13 kg/m2 Body Surface Area Calculated 2.23 m2 [id number] Comments: 12/2017 last eye exam was tested for cateractsHears within normal limits Temperature 97.7 f Comments: Method: Temporal Pulse 94 /min Comments: Pattern: Regular Respiration Rate 20 /min Comments: Pattern: Unlabored O2 SAT 97 % Comments: Room air BP Systolic 111 mm[Hg] Comments: Patient Position: Sitting; Cuff Location: Left Arm; Cuff Size: Standard BP Diastolic 80 mm[Hg] Comments: Patient Position: Sitting; Cuff Location: Left Arm; Cuff Size: Standard Weight 244.125 lb Height 72 in Body Mass Index Calculated 33.11 kg/m2 Body Surface Area Calculated 2.32 m2 :38 Pulse 79 /min Comments: Pattern: Regular Respiration Rate 18 /min Comments: Pattern: Unlabored O2 SAT 98 % Comments: Room air BP Systolic 128 mm[Hg] Comments: Patient Position: Sitting; Cuff Location: Left Arm; Cuff Size: Large BP Diastolic 82 mm[Hg] Comments: Patient Position: Sitting; Cuff Location: Left Arm; Cuff Size: Large Weight 244.125 lb Height 72 in Body Mass Index Calculated 33.11 kg/m2 Body Surface Area Calculated 2.32 m2 [id number] Pulse 80 /min Comments: Pattern: Regular Respiration Rate 18 /min Comments: Pattern: Unlabored O2 SAT 97 % Comments: Room air BP Systolic 142 mm[Hg] Comments: Patient Position: Sitting; Cuff Location: Left Arm; Cuff Size: Standard BP Diastolic 80 mm[Hg] Comments: Patient Position: Sitting; Cuff Location: Left Arm; Cuff Size: Standard Weight 257 lb Height 72 in Body Mass Index Calculated 34.86 kg/m2 Body Surface Area Calculated 2.37 m2 :16 Pulse 78 /min Comments: Pattern: Regular Respiration Rate 18 /min Comments: Pattern: Unlabored O2 SAT 94 % Comments: Room air BP Systolic 128 mm[Hg] Comments: Patient Position: Sitting; Cuff Location: Left Arm; Cuff Size: Large BP Diastolic 82 mm[Hg] Comments: Patient Position: Sitting; Cuff Location: Left Arm; Cuff Size: Large Weight 244.375 lb Height 72 in Body Mass Index Calculated 33.14 kg/m2 Body Surface Area Calculated 2.32 m2 :03 Comments: hearing wnlDrLeila Muhammad and had aglaucoma test done Pulse 76 /min Comments: Pattern: Regular Respiration Rate 18 /min Comments: Pattern: Unlabored O2 SAT 98 % Comments: Room air BP Systolic 120 mm[Hg] Comments: Patient Position: Sitting; Cuff Location: Left Arm; Cuff Size: Large BP Diastolic 80 mm[Hg] Comments: Patient Position: Sitting; Cuff Location: Left Arm; Cuff Size: Large Weight 248.125 lb Height 72 in Body Mass Index Calculated 33.65 kg/m2 Body Surface Area Calculated 2.34 m2 :46 Pulse 77 /min Comments: Pattern: Regular Respiration Rate 18 /min Comments: Pattern: Unlabored O2 SAT 96 % Comments: Room air BP Systolic 122 mm[Hg] Comments: Patient Position: Sitting; Cuff Location: Left Arm; Cuff Size: Large BP Diastolic 80 mm[Hg] Comments: Patient Position: Sitting; Cuff Location: Left Arm; Cuff Size: Large Weight 249.375 lb Height 72 in Body Mass Index Calculated 33.82 kg/m2 Body Surface Area Calculated 2.34 m2 :38 Temperature 98.1 f Comments: Method: Temporal Pulse 81 /min Comments: Pattern: Regular Respiration Rate 16 /min Comments: Pattern: Unlabored O2 SAT 95 % Comments: Room air BP Systolic 126 mm[Hg] Comments: Patient Position: Sitting; Cuff Location: Left Arm; Cuff Size: Standard BP Diastolic 74 mm[Hg] Comments: Patient Position: Sitting; Cuff Location: Left Arm; Cuff Size: Standard Weight 257 lb Height 72 in Body Mass Index Calculated 34.86 kg/m2 Body Surface Area Calculated 2.37 m2 :35 Temperature 97.4 f Comments: Method: Temporal Pulse 85 /min Comments: Pattern: Regular Respiration Rate 16 /min Comments: Pattern: Unlabored O2 SAT 96 % Comments: Room air BP Systolic 132 mm[Hg] Comments: Patient Position: Sitting; Cuff Location: Left Arm; Cuff Size: Standard BP Diastolic 80 mm[Hg] Comments: Patient Position: Sitting; Cuff Location: Left Arm; Cuff Size: Standard Weight 242 lb Height 72 in Body Mass Index Calculated 32.82 kg/m2 Body Surface Area Calculated 2.31 m2 :52 Temperature 97.9 f Comments: Method: Temporal Pulse 80 /min Comments: Pattern: Regular Respiration Rate 16 /min Comments: Pattern: Unlabored BP Systolic 128 mm[Hg] Comments: Patient Position: Sitting; Cuff Location: Left Arm; Cuff Size: Standard BP Diastolic 74 mm[Hg] Comments: Patient Position: Sitting; Cuff Location: Left Arm; Cuff Size: Standard Weight 242 lb Height 72 in Body Mass Index Calculated 32.82 kg/m2 Body Surface Area Calculated 2.31 m2 :27 Pulse 73 /min Comments: Pattern: Regular Respiration Rate 16 /min Comments: Pattern: Unlabored O2 SAT 98 % Comments: Room air BP Systolic 124 mm[Hg] Comments: Patient Position: Sitting; Cuff Location: Left Arm; Cuff Size: Standard BP Diastolic 70 mm[Hg] Comments: Patient Position: Sitting; Cuff Location: Left Arm; Cuff Size: Standard Weight 242 lb Height 72 in Body Mass Index Calculated 32.82 kg/m2 Body Surface Area Calculated 2.31 m2 :37 Temperature 97.7 f Comments: Method: Tympanic Pulse 69 /min Comments: Pattern: Regular Respiration Rate 18 /min Comments: Pattern: Unlabored O2 SAT 95 % Comments: Room air BP Systolic 130 mm[Hg] Comments: Patient Position: Sitting; Cuff Location: Left Arm; Cuff Size: Standard BP Diastolic 64 mm[Hg] Comments: Patient Position: Sitting; Cuff Location: Left Arm; Cuff Size: Standard Weight 242 lb Height 72 in Body Mass Index Calculated 32.82 kg/m2 Body Surface Area Calculated 2.31 m2 :59 Pulse 100 /min Comments: Pattern: Regular Respiration Rate 16 /min Comments: Pattern: Unlabored O2 SAT 97 % Comments: Room air BP Systolic 122 mm[Hg] Comments: Patient Position: Sitting; Cuff Location: Left Arm; Cuff Size: Standard BP Diastolic 78 mm[Hg] Comments: Patient Position: Sitting; Cuff Location: Left Arm; Cuff Size: Standard Weight 244 lb Height 72 in Body Mass Index Calculated 33.09 kg/m2 Body Surface Area Calculated 2.32 m2 :58 Temperature 98.8 f Comments: Method: Temporal Pulse 84 /min Comments: Pattern: Regular Respiration Rate 15 /min Comments: Pattern: Unlabored O2 SAT 97 % Comments: Room air BP Systolic 126 mm[Hg] Comments: Patient Position: Sitting; Cuff Location: Left Arm; Cuff Size: Large BP Diastolic 82 mm[Hg] Comments: Patient Position: Sitting; Cuff Location: Left Arm; Cuff Size: Large Weight 238 lb Height 72 in Body Mass Index Calculated 32.28 kg/m2 Body Surface Area Calculated 2.29 m2 :35 Temperature 97.8 f Comments: Method: Temporal Pulse 68 /min Comments: Pattern: Regular Respiration Rate 17 /min Comments: Pattern: Unlabored O2 SAT 95 % Comments: Room air BP Systolic 126 mm[Hg] Comments: Patient Position: Sitting; Cuff Location: Left Arm; Cuff Size: Standard BP Diastolic 88 mm[Hg] Comments: Patient Position: Sitting; Cuff Location: Left Arm; Cuff Size: Standard Weight 235 lb Height 72 in Body Mass Index Calculated 31.87 kg/m2 Body Surface Area Calculated 2.28 m2 :32 Temperature 97.8 f Comments: Method: Oral Pulse 84 /min Comments: Pattern: Regular Respiration Rate 16 /min Comments: Pattern: Unlabored BP Systolic 124 mm[Hg] Comments: Patient Position: Sitting; Cuff Location: Left Arm; Cuff Size: Large BP Diastolic 80 mm[Hg] Comments: Patient Position: Sitting; Cuff Location: Left Arm; Cuff Size: Large Weight 238 lb Height 72 in Body Mass Index Calculated 32.28 kg/m2 Body Surface Area Calculated 2.29 m2 :38 Temperature 96.8 f Pulse 78 /min Comments: Pattern: Regular Respiration Rate 16 /min Comments: Pattern: Unlabored BP Systolic 114 mm[Hg] Comments: Patient Position: Sitting; Cuff Location: Left Arm; Cuff Size: Large BP Diastolic 82 mm[Hg] Comments: Patient Position: Sitting; Cuff Location: Left Arm; Cuff Size: Large Weight 248 lb Height 72 in Body Mass Index Calculated 33.63 kg/m2 Body Surface Area Calculated 2.33 m2 :37 Temperature 97.5 f Pulse 73 /min Comments: Pattern: Regular Respiration Rate 16 /min Comments: Pattern: Unlabored BP Systolic 124 mm[Hg] Comments: Patient Position: Sitting; Cuff Location: Left Arm; Cuff Size: Standard BP Diastolic 80 mm[Hg] Comments: Patient Position: Sitting; Cuff Location: Left Arm; Cuff Size: Standard Weight 234 lb Height 72 in Body Mass Index Calculated 31.74 kg/m2 Body Surface Area Calculated 2.28 m2 :48 Pulse 78 /min Comments: Pattern: Regular Respiration Rate 15 /min Comments: Pattern: Unlabored O2 SAT 98 % Comments: Room air BP Systolic 118 mm[Hg] Comments: Patient Position: Sitting; Cuff Location: Left Arm; Cuff Size: Standard BP Diastolic 70 mm[Hg] Comments: Patient Position: Sitting; Cuff Location: Left Arm; Cuff Size: Standard Weight 225.3125 lb Height 72 in Body Mass Index Calculated 30.56 kg/m2 Body Surface Area Calculated 2.24 m2 :57 Temperature 98.4 f Comments: Method: Oral Pulse 90 /min Comments: Pattern: Regular Respiration Rate 18 /min Comments: Pattern: Unlabored O2 SAT 98 % Comments: Room air BP Systolic 122 mm[Hg] Comments: Patient Position: Sitting; Cuff Location: Left Arm; Cuff Size: Standard BP Diastolic 70 mm[Hg] Comments: Patient Position: Sitting; Cuff Location: Left Arm; Cuff Size: Standard Weight 237 lb Height 72 in Body Mass Index Calculated 32.14 kg/m2 Body Surface Area Calculated 2.29 m2 :06 Temperature 98.3 f Comments: Method: Oral Pulse 86 /min Comments: Pattern: Regular Respiration Rate 20 /min O2 SAT 97 % Comments: Room air BP Systolic 126 mm[Hg] Comments: Patient Position: Sitting; Cuff Location: Left Arm; Cuff Size: Standard BP Diastolic 78 mm[Hg] Comments: Patient Position: Sitting; Cuff Location: Left Arm; Cuff Size: Standard Weight 237 lb Height 72 in Body Mass Index Calculated 32.14 kg/m2 Body Surface Area Calculated 2.29 m2 :49 Pulse 95 /min Comments: Pattern: Regular Respiration Rate 18 /min Comments: Pattern: Unlabored O2 SAT 98 % Comments: Room air BP Systolic 122 mm[Hg] Comments: Patient Position: Sitting; Cuff Location: Left Arm; Cuff Size: Large BP Diastolic 80 mm[Hg] Comments: Patient Position: Sitting; Cuff Location: Left Arm; Cuff Size: Large Weight 237 lb Height 72 in Body Mass Index Calculated 32.14 kg/m2 Body Surface Area Calculated 2.29 m2 :31 Pulse 75 /min Comments: Pattern: Regular Respiration Rate 18 /min Comments: Pattern: Unlabored O2 SAT 97 % Comments: Room air BP Systolic 122 mm[Hg] Comments: Patient Position: Sitting; Cuff Location: Left Arm; Cuff Size: Large BP Diastolic 70 mm[Hg] Comments: Patient Position: Sitting; Cuff Location: Left Arm; Cuff Size: Large Weight 237 lb Height 864 in Body Mass Index Calculated 0.22 kg/m2 Body Surface Area Calculated 13.87 m2 :33 Temperature 98.5 f Comments: Method: Oral Pulse 78 /min Comments: Pattern: Regular Respiration Rate 18 /min BP Systolic 108 mm[Hg] Comments: Patient Position: Sitting BP Diastolic 72 mm[Hg] Comments: Patient Position: Sitting Weight 237 lb Height 864 in Body Mass Index Calculated 0.22 kg/m2 Body Surface Area Calculated 13.87 m2 :52 Temperature 97.5 f Pulse 72 /min Comments: Pattern: Regular Respiration Rate 16 /min Comments: Pattern: Unlabored BP Systolic 122 mm[Hg] Comments: Patient Position: Sitting; Cuff Location: Left Arm; Cuff Size: Large BP Diastolic 88 mm[Hg] Comments: Patient Position: Sitting; Cuff Location: Left Arm; Cuff Size: Large Weight 230 lb Height 73 in Body Mass Index Calculated 30.34 kg/m2 Body Surface Area Calculated 2.28 m2 :36 Temperature 97.5 f Pulse 84 /min Comments: Pattern: Regular Respiration Rate 18 /min Comments: Pattern: Unlabored BP Systolic 120 mm[Hg] Comments: Patient Position: Sitting; Cuff Location: Left Arm; Cuff Size: Large BP Diastolic 80 mm[Hg] Comments: Patient Position: Sitting; Cuff Location: Left Arm; Cuff Size: Large Weight 245 lb Height 73 in Body Mass Index Calculated 32.32 kg/m2 Body Surface Area Calculated 2.35 m2 :43 Temperature 98.3 f Pulse 88 /min Comments: Pattern: Regular Respiration Rate 18 /min Comments: Pattern: Unlabored BP Systolic 112 mm[Hg] Comments: Patient Position: Sitting; Cuff Location: Left Arm; Cuff Size: Large BP Diastolic 82 mm[Hg] Comments: Patient Position: Sitting; Cuff Location: Left Arm; Cuff Size: Large Weight 238 lb Height 72.75 in Body Mass Index Calculated 31.62 kg/m2 Body Surface Area Calculated 2.31 m2 :38 Temperature 97.6 f Pulse 80 /min Comments: Pattern: Regular Respiration Rate 16 /min Comments: Pattern: Unlabored BP Systolic 120 mm[Hg] Comments: Patient Position: Sitting; Cuff Location: Left Arm; Cuff Size: Large BP Diastolic 88 mm[Hg] Comments: Patient Position: Sitting; Cuff Location: Left Arm; Cuff Size: Large Weight 231 lb Height 72.75 in Body Mass Index Calculated 30.69 kg/m2 Body Surface Area Calculated 2.28 m2 :46 Temperature 97.6 f Pulse 72 /min Comments: Pattern: Regular Respiration Rate 18 /min Comments: Pattern: Unlabored BP Systolic 112 mm[Hg] Comments: Patient Position: Sitting; Cuff Location: Left Arm; Cuff Size: Large BP Diastolic 86 mm[Hg] Comments: Patient Position: Sitting; Cuff Location: Left Arm; Cuff Size: Large Weight 227 lb Height 72.75 in Body Mass Index Calculated 30.15 kg/m2 Body Surface Area Calculated 2.27 m2 :06 Temperature 97.1 f Pulse 80 /min Comments: Pattern: Regular Respiration Rate 16 /min Comments: Pattern: Unlabored BP Systolic 118 mm[Hg] Comments: Patient Position: Sitting; Cuff Location: Left Arm; Cuff Size: Standard BP Diastolic 98 mm[Hg] Comments: Patient Position: Sitting; Cuff Location: Left Arm; Cuff Size: Standard Weight 232 lb Height 73 in Body Mass Index Calculated 30.61 kg/m2 Body Surface Area Calculated 2.29 m2 :31 Temperature 97.6 f Pulse 80 /min Comments: Pattern: Regular Respiration Rate 18 /min Comments: Pattern: Unlabored BP Systolic 122 mm[Hg] Comments: Patient Position: Sitting; Cuff Location: Left Arm; Cuff Size: Standard BP Diastolic 86 mm[Hg] Comments: Patient Position: Sitting; Cuff Location: Left Arm; Cuff Size: Standard Weight 228 lb :29 Temperature 97.6 f Pulse 84 /min Comments: Pattern: Regular Respiration Rate 18 /min Comments: Pattern: Unlabored BP Systolic 134 mm[Hg] Comments: Patient Position: Sitting; Cuff Location: Left Arm; Cuff Size: Standard BP Diastolic 82 mm[Hg] Comments: Patient Position: Sitting; Cuff Location: Left Arm; Cuff Size: Standard Weight 248 lb :14 Temperature 99.1 f Comments: Method: Undefined Pulse 80 /min Comments: Pattern: Regular Respiration Rate 18 /min Comments: Pattern: Undefined BP Systolic 120 mm[Hg] Comments: Patient Position: Sitting; Cuff Location: Right Arm; Cuff Size: Large BP Diastolic 76 mm[Hg] Comments: Patient Position: Sitting; Cuff Location: Right Arm; Cuff Size: Large Weight 244 lb Height 0 in Head Circumference 0.00 cm :33 Temperature 98.3 f Comments: Method: Undefined Pulse 76 /min Comments: Pattern: Regular Respiration Rate 16 /min Comments: Pattern: Undefined BP Systolic 122 mm[Hg] Comments: Patient Position: Sitting; Cuff Location: Right Arm; Cuff Size: Standard BP Diastolic 88 mm[Hg] Comments: Patient Position: Sitting; Cuff Location: Right Arm; Cuff Size: Standard Weight 244 lb Height 73.5 in Body Mass Index Calculated 31.76 kg/m2 Body Surface Area Calculated 2.35 m2 Head Circumference 0.00 cm :26 Temperature 98.2 f Comments: Method: Undefined Pulse 88 /min Comments: Pattern: Regular Respiration Rate 16 /min Comments: Pattern: Undefined BP Systolic 124 mm[Hg] Comments: Patient Position: Sitting; Cuff Location: Right Arm; Cuff Size: Large BP Diastolic 74 mm[Hg] Comments: Patient Position: Sitting; Cuff Location: Right Arm; Cuff Size: Large Weight 246 lb Height 0 in Head Circumference 0.00 cm :19 Temperature 97.6 f Comments: Method: Oral Pulse 80 /min Comments: Pattern: Regular Respiration Rate 20 /min Comments: Pattern: Unlabored BP Systolic 138 mm[Hg] Comments: Patient Position: Sitting; Cuff Location: Left Arm; Cuff Size: Standard BP Diastolic 86 mm[Hg] Comments: Patient Position: Sitting; Cuff Location: Left Arm; Cuff Size: Standard Weight 248 lb Height 73.5 in Body Mass Index Calculated 32.28 kg/m2 Body Surface Area Calculated 2.37 m2 Head Circumference 0.00 cm :11 Temperature 98.8 f Comments: Method: Undefined Pulse 84 /min Comments: Pattern: Regular Respiration Rate 16 /min Comments: Pattern: Undefined BP Systolic 134 mm[Hg] Comments: Patient Position: Sitting; Cuff Location: Right Arm; Cuff Size: Standard BP Diastolic 92 mm[Hg] Comments: Patient Position: Sitting; Cuff Location: Right Arm; Cuff Size: Standard Weight 248 lb Height 73.5 in Body Mass Index Calculated 32.28 kg/m2 Body Surface Area Calculated 2.37 m2 Head Circumference 0.00 cm :05 Temperature 98 f Comments: Method: Oral Pulse 76 /min Comments: Pattern: Regular Respiration Rate 16 /min Comments: Pattern: Unlabored BP Systolic 110 mm[Hg] Comments: Patient Position: Sitting; Cuff Location: Right Arm; Cuff Size: Large BP Diastolic 82 mm[Hg] Comments: Patient Position: Sitting; Cuff Location: Right Arm; Cuff Size: Large Weight 241 lb Height 0 in Head Circumference 0.00 cm :19 Temperature 98.5 f Comments: Method: Oral Pulse 80 /min Comments: Pattern: Regular Respiration Rate 16 /min Comments: Pattern: Unlabored BP Systolic 138 mm[Hg] Comments: Patient Position: Sitting; Cuff Location: Right Arm; Cuff Size: Standard BP Diastolic 86 mm[Hg] Comments: Patient Position: Sitting; Cuff Location: Right Arm; Cuff Size: Standard Weight 225 lb Height 0 in Head Circumference 0.00 cm :00 Temperature 98.1 f Comments: Method: Oral Pulse 80 /min Comments: Pattern: Regular Respiration Rate 16 /min Comments: Pattern: Unlabored BP Systolic 140 mm[Hg] Comments: Patient Position: Sitting; Cuff Location: Right Arm; Cuff Size: Standard BP Diastolic 78 mm[Hg] Comments: Patient Position: Sitting; Cuff Location: Right Arm; Cuff Size: Standard Weight 228 lb Height 0 in Head Circumference 0.00 cm :55 Temperature 98.2 f Comments: Method: Oral Pulse 80 /min Comments: Pattern: Regular Respiration Rate 16 /min Comments: Pattern: Unlabored BP Systolic 136 mm[Hg] Comments: Patient Position: Sitting; Cuff Location: Left Arm; Cuff Size: Standard BP Diastolic 84 mm[Hg] Comments: Patient Position: Sitting; Cuff Location: Left Arm; Cuff Size: Standard Weight 223.4375 lb Height 71.75 in Body Mass Index Calculated 30.51 kg/m2 Body Surface Area Calculated 2.23 m2 Head Circumference 0.00 cm :11 Temperature 98.6 f Comments: Method: Oral Pulse 68 /min Comments: Pattern: Regular Respiration Rate 16 /min Comments: Pattern: Unlabored BP Systolic 136 mm[Hg] Comments: Patient Position: Sitting; Cuff Location: Left Arm; Cuff Size: Standard BP Diastolic 98 mm[Hg] Comments: Patient Position: Sitting; Cuff Location: Left Arm; Cuff Size: Standard Weight 224.1875 lb Height 71.75 in Body Mass Index Calculated 30.62 kg/m2 Body Surface Area Calculated 2.23 m2 Head Circumference 0.00 cm Results Date Description Value Details [id number] PSA,Total- Diagnostic Comments: [facility] [id number] [place], [place], [id number] PSA, DIAGNOSTIC 3.71 ng/mL (Normal) Range: 0.0-4.0 Comments: This test was performed using the TPSA assay method for the([employer] chemistry system. Values obtained with differentassay methods cannot be used interchangably.When changing PSA assays in the course of monitoring apatient, additional sequential testing should be carriedout to confirm baseline values. [id number] Basic Metabolic Profile (BMP) Comments: Send Results To: Swetha [facility] for Laboratory Test [facility] [id number] [place], [address] GAP 11 (Normal) Range: 5-15 CO2 28.0 mmol/L (Normal) Range: 21.0-32.0 CL 98 mmol/L (Normal) Range: 98-107 K 4.5 mmol/L (Normal) Range: 3.5-5.1 NA 137 mmol/L (Normal) Range: 136-145 CA 9.2 mg/dL (Normal) Range: 8.5-10.1 BUN/CRE 23.0 {RATIO} (Abnormal) Range: 10-20 EST GFR - AA 111 mL/min (Normal) Comments: GFR Calc EST GFR 92 mL/min (Normal) Comments: Non- GFR Calc CREAT,SERUM 0.87 mg/dL (Normal) Range: 0.70-1.30 Comments: The validity of the calculated GFR AND GFRAA in patients over70 years has not been determined. Clinical correlation isessential. BUN 20 mg/dL (Abnormal) Range: 7-18 GLU 89 mg/dL (Normal) Range: 74-106 Comments: Please note revised GLUCOSE reference range [id number]/02/2018. [id number] Urinalysis, Complete Comments: Order Date: 05/11/18How was Urine Obtained? [facility] [id number] [place] [place], [id number] MUCUS, URINE 2+ {/hpf} (Normal) BACTERIA 1+ {/hpf} (Normal) SQUAM EPI 0-5 SEEN {/hpf} (Normal) Range: 0-5 RBC-UA 0 SEEN {/hpf} (Normal) Range: 0-5 WBC 0-5 SEEN {/hpf} (Normal) Range: 0-5 LEUK ESTERASE 25 /ul (Abnormal) OCCULT BLOOD-UR Negative /ul (Normal) NITRITE UR Negative (Normal) UROBILI 4 mg/dL (Abnormal) PROT DIPSTX 15 mg/dL (Abnormal) pH UR 7.0 (Normal) Range: 5.0 - 8.0 SP.GR. DIPSTX 1.010 (Normal) Range: 1.002-1.030 KETONE UR Negative mg/dL (Normal) BILIRUBIN URINE 1 mg/dL (Abnormal) Comments: COLOR OF URINE MAY AFFECT DIPSTICK RESULTS. GLUCOSE, UR Normal mg/dL (Normal) CLARITY Clear (Normal) COLOR Yellow (Normal) [id number] Basic Metabolic Profile (BMP) Comments: [facility] [id number] [place], [place], [id number] GAP 7 (Normal) Range: 5-15 CO2 25.0 mmol/L (Normal) Range: 21.0-32.0 CL 98 mmol/L (Normal) Range: 98-107 K 4.2 mmol/L (Normal) Range: 3.5-5.1 NA 130 mmol/L (Abnormal) Range: 136-145 CA 7.8 mg/dL (Abnormal) Range: 8.5-10.1 BUN/CRE 14.9 {RATIO} (Normal) Range: 10-20 Estimated CRCL 97.25 ml/min (Normal) EST GFR - AA 121 mL/min (Normal) Comments: GFR Calc EST GFR 100 mL/min (Normal) Comments: Non- GFR Calc CREAT,SERUM 0.81 mg/dL (Normal) Range: 0.70-1.30 Comments: The validity of the calculated GFR AND GFRAA in patients over70 years has not been determined. Clinical correlation isessential. BUN 12 mg/dL (Normal) Range: 7-18 GLU 136 mg/dL (Abnormal) Range: 74-106 Comments: Fasting Glucose result greater than or equal to 126 mg/dLsuggests DIABETES MELLITUS per A.D.A. criteria.Please note revised GLUCOSE reference range /02/2018. 70-Uzz-980729:19 CBC W/Diff, Automated Comments: [facility] [address] [place], [place], [id number] Absolute Lymph 1.73 {X10_3/ul} (Normal) Range: 0.83-4.51 Absolute Neut 4.9 {X10_3/uL} (Normal) Range: 2.0-7.7 IM GRAN % 0.700 % (Normal) Range: 0.0-0.9 Comments: IG% - Immature Granulocytes (promyelocytes, myelocytes andmetamyelocytes) > 1% indicates that a LEFT SHIFT is Present. BASO% 0.4 % (Normal) Range: 0-1 EO% 1.3 % (Normal) Range: 0-5 MONO% 10.1 % (Abnormal) Range: 0-10 LY% 23.0 % (Normal) Range: 19-41 NEUT% 64.5 % (Normal) Range: 47-70 MPV 9.0 fL (Normal) Range: 6.2-12.0 PLT 433 K/mm3 (Normal) Range: 150-450 RDW SD 46.5 fL (Abnormal) Range: 35.1-43.9 RDW CV 14.1 % (Normal) Range: 11.6-14.6 MCHC 32.6 {g/gl} (Normal) Range: 32-36 MCH 29.8 pg (Normal) Range: 27.0-32.0 MCV 91.4 fL (Normal) Range: 80-94 HCT 29.8 % (Abnormal) Range: 40-54 HGB 9.7 g/dL (Abnormal) Range: 13.0-16.5 RBC 3.26 {M/mm3} (Abnormal) Range: 4.6-6.2 WBC 7.5 K/mm3 (Normal) Range: 4.4-11.0 83-Opy-352051:10 Basic Metabolic Profile (BMP) Comments: [facility] [address] [place], [address] GAP 12 (Normal) Range: 5-15 CO2 22.0 mmol/L (Normal) Range: 21.0-32.0 CL 96 mmol/L (Abnormal) Range: 98-107 K 3.9 mmol/L (Normal) Range: 3.5-5.1 NA 130 mmol/L (Abnormal) Range: 136-145 CA 9.4 mg/dL (Normal) Range: 8.5-10.1 BUN/CRE 40.9 {RATIO} (Abnormal) Range: 10-20 Estimated CRCL 51.15 ml/min (Normal) EST GFR - AA 58 mL/min (Abnormal) Comments: GFR Calc EST GFR 48 mL/min (Abnormal) Comments: Non- GFR Calc CREAT,SERUM 1.54 mg/dL (Abnormal) Range: 0.70-1.30 Comments: The validity of the calculated GFR AND GFRAA in patients over70 years has not been determined. Clinical correlation isessential. BUN 63 mg/dL (Abnormal) Range: 7-18 GLU 167 mg/dL (Abnormal) Range: 74-106 Comments: Fasting Glucose result greater than or equal to 126 mg/dLsuggests DIABETES MELLITUS per A.D.A. criteria.Please note revised GLUCOSE reference range nqpibblsp59/02/2018. 55-Fhr-064160:10 CBC W/Diff, Automated Comments: [facility] [address] [place], [address] Absolute Lymph 2.70 {X10_3/ul} (Normal) Range: 0.83-4.51 Absolute Neut 4.1 {X10_3/uL} (Normal) Range: 2.0-7.7 IM GRAN % 0.100 % (Normal) Range: 0.0-0.9 Comments: IG% - Immature Granulocytes (promyelocytes, myelocytes andmetamyelocytes) > 1% indicates that a LEFT SHIFT is Present. BASO% 0.3 % (Normal) Range: 0-1 EO% 0.3 % (Normal) Range: 0-5 MONO% 7.7 % (Normal) Range: 0-10 LY% 36.3 % (Normal) Range: 19-41 NEUT% 55.3 % (Normal) Range: 47-70 MPV 10.8 fL (Normal) Range: 6.2-12.0 PLT 316 K/mm3 (Normal) Range: 150-450 RDW SD 46.5 fL (Abnormal) Range: 35.1-43.9 RDW CV 13.7 % (Normal) Range: 11.6-14.6 MCHC 33.4 {g/gl} (Normal) Range: 32-36 MCH 31.0 pg (Normal) Range: 27.0-32.0 MCV 92.7 fL (Normal) Range: 80-94 HCT 40.4 % (Normal) Range: 40-54 HGB 13.5 g/dL (Normal) Range: 13.0-16.5 RBC 4.36 {M/mm3} (Abnormal) Range: 4.6-6.2 WBC 7.4 K/mm3 (Normal) Range: 4.4-11.0 :10 Partial Thromboplast Time Comments: [facility] [address] [place], [id number] PTT 39.8 s (Abnormal) Range: 24.1-36.2 34-Iow-575489:10 Prothrombin Time w/INR Comments: [facility] [address] [place], [id number] INR 1.3 (Normal) PROTIME 16.3 s (Abnormal) Range: 11.7-14.9 :21 Microscopic Examination Comments: PATIENT WAS FASTINGPERFORMED BY: [facility] Athlete ManagementNovant Health [facility] [id number] Bacteria Few (Normal) Mucus Threads Present (Normal) Cast Type Hyaline casts (Normal) Casts Present {/lpf} (Abnormal) Epithelial Cells (non renal) 0-10 {/hpf} (Normal) Range: 0 - 10 RBC 0-2 {/hpf} (Normal) Range: 0 - 2 WBC 0-5 {/hpf} (Normal) Range: 0 - 5 :49 PSA,Total- Diagnostic Comments: [facility] [address] [place], [id number] PSA, DIAGNOSTIC 4.43 ng/mL (Abnormal) Range: 0.0-4.0 Comments: This test was performed using the TPSA assay method for theWest Hills Regional Medical CenterWEISSENHAUS chemistry system. Values obtained with differentassay methods cannot be used interchangably.When changing PSA assays in the course of monitoring apatient, additional sequential testing should be carriedout to confirm baseline values. 32-Zep-519529:50 HgA1C , Office (16245) HgA1C , Office 5.7 % (Normal) Range: 4.6 - 7.1 :21 CALCIFEDIOL (88019) Comments: PATIENT WAS FASTINGPERFORMED BY: [employer] Xkuyiz[address] [place] [id number] Vitamin D, 25-Hydroxy 49.2 ng/mL (Normal) Range: 30.0-100.0 Comments: Vitamin D deficiency has been defined by the [place] ofMedicine and an Endocrine Society practice guideline as alevel of serum 25-OH vitamin D less than 20 ng/mL (1,2).The Endocrine Society went on to further define vitamin Dinsufficiency as a level between 21 and 29 ng/mL (2).1. IOM ([place] of Medicine). 2010. Dietary reference intakes for calcium and D. [place]: The National Academies Press.2. Reuben MF, Stephanie CLARK, Radha MILLIGAN, et al. Evaluation, treatment, and prevention of vitamin D deficiency: an Endocrine Society clinical practice guideline. JCEM. 2010; 96(7):1911-30. :21 TSH (37539) Comments: PATIENT WAS FASTINGPERFORMED BY: BE[facility] Athlete ManagementNov[facility] Health [facility] [id number] TSH 2.900 {uIU/mL} (Normal) Range: 0.450-4.500 :21 URINALYSIS, W/ MICRO (68528) Comments: PATIENT WAS FASTINGPERFORMED BY: [employer]6370 SponsiaNovant Health [facility] Center [id number] Microscopic Examination See below: (Normal) Comments: Microscopic was indicated and was performed. Microscopic Examination MICRON (Normal) Comments: Microscopic follows if indicated. Nitrite, Urine Negative (Normal) Urobilinogen,Semi-Qn 0.2 mg/dL (Normal) Range: 0.2-1.0 Bilirubin Negative (Normal) Occult Blood Negative (Normal) Ketones Negative (Normal) Glucose Negative (Normal) Protein Negative (Normal) WBC Esterase Negative (Normal) Appearance Clear (Normal) Urine-Color Yellow (Normal) pH 5.0 (Normal) Range: 5.0-7.5 Specific [place] 1.016 (Normal) Range: 1.005-1.030 :21 MICROALBUMIN: CREATININE RATIO Comments: PATIENT WAS FASTINGPERFORMED BY: [employer]70 SponsiaNovant Health [facility] Center [id number] (47965) AND (47699) Alb/Creat Ratio <3.8 {mg/g_creat} (Normal) Range: 0.0-30.0 Albumin, Urine <3.0 ug/mL (Normal) Creatinine, Urine 79.5 mg/dL (Normal) 69-Niz-29240:21 METABOLIC PANEL, COMPREHENSIVE Comments: PATIENT WAS FASTINGPERFORMED BY: LabCoKessler Institute for RehabilitationTkhjnq7648 [facility] [id number] (66471) ALT (SGPT) 16 [iU]/L (Normal) Range: 0-44 AST (SGOT) 18 [iU]/L (Normal) Range: 0-40 Alkaline Phosphatase 78 [iU]/L (Normal) Range: 39-117 Bilirubin, Total 1.3 mg/dL (Abnormal) Range: 0.0-1.2 A/G Ratio 1.6 (Normal) Range: 1.2-2.2 Globulin, Total 2.8 g/dL (Normal) Range: 1.5-4.5 Albumin 4.6 g/dL (Normal) Range: 3.5-4.8 Protein, Total 7.4 g/dL (Normal) Range: 6.0-8.5 Calcium 9.5 mg/dL (Normal) Range: 8.6-10.2 Carbon Dioxide, Total 22 mmol/L (Normal) Range: 20-29 Chloride 103 mmol/L (Normal) Range: 96-106 Potassium 4.6 mmol/L (Normal) Range: 3.5-5.2 Sodium 141 mmol/L (Normal) Range: 134-144 BUN/Creatinine Ratio 20 (Normal) Range: 10-24 eGFR If Africn Am 98 mL/min/1.73 (Normal) eGFR If NonAfricn Am 84 mL/min/1.73 (Normal) Creatinine 0.91 mg/dL (Normal) Range: 0.76-1.27 BUN 18 mg/dL (Normal) Range: 8-27 Glucose 94 mg/dL (Normal) Range: 65-99 36-Xpz-44293:21 CBC W/AUTO DIFF WBC (07244) Comments: PATIENT WAS FASTINGPERFORMED BY: LabCoKessler Institute for RehabilitationZxkzxw7906 [facility] [id number] Immature Grans (Abs) 0.0 {x10E3/uL} (Normal) Range: 0.0-0.1 Immature Granulocytes 0 % (Normal) Baso (Absolute) 0.1 {x10E3/uL} (Normal) Range: 0.0-0.2 Eos (Absolute) 0.3 {x10E3/uL} (Normal) Range: 0.0-0.4 Monocytes(Absolute) 0.6 {x10E3/uL} (Normal) Range: 0.1-0.9 Lymphs (Absolute) 2.4 {x10E3/uL} (Normal) Range: 0.7-3.1 Neutrophils (Absolute) 1.6 {x10E3/uL} (Normal) Range: 1.4-7.0 Basos 1 % (Normal) Eos 6 % (Normal) Monocytes 11 % (Normal) Lymphs 49 % (Normal) Neutrophils 33 % (Normal) Platelets 213 {x10E3/uL} (Normal) Range: 150-379 RDW 14.3 % (Normal) Range: 12.3-15.4 MCHC 34.3 g/dL (Normal) Range: 31.5-35.7 MCH 31.2 pg (Normal) Range: 26.6-33.0 MCV 91 fL (Normal) Range: 79-97 Hematocrit 38.2 % (Normal) Range: 37.5-51.0 Hemoglobin 13.1 g/dL (Normal) Range: 13.0-17.7 RBC 4.20 {x10E6/uL} (Normal) Range: 4.14-5.80 WBC 4.9 {x10E3/uL} (Normal) Range: 3.4-10.8 :21 LIPID PANEL (77930) Comments: PATIENT WAS FASTINGPERFORMED BY: [facility]6370 [facility] [id number] LDL/HDL Ratio 3.0 {ratio} (Normal) Range: 0.0-3.6 Comments: LDL/HDL Ratio Men Women 1/2 Avg.Risk 1.0 1.5 Av g.Risk 3.6 3.2 2X Avg.Risk 6.2 5.0 3X Avg.Risk 8.0 6.1 LDL Cholesterol Calc 107 mg/dL (Abnormal) Range: 0-99 VLDL Cholesterol Elvin 30 mg/dL (Normal) Range: 5-40 HDL Cholesterol 36 mg/dL (Abnormal) Triglycerides 149 mg/dL (Normal) Range: 0-149 Cholesterol, Total 173 mg/dL (Normal) Range: 100-199 :49 Microscopic Examination Comments: PATIENT WAS FASTINGPERFORMED BY: [facility] Yrrxbv6184 [address] [facility]in [place] [id number] Bacteria None seen (Normal) Mucus Threads Present (Normal) Epithelial Cells (non renal) 0-10 {/hpf} (Normal) Range: 0 - 10 RBC 0-2 {/hpf} (Normal) Range: 0 - 2 WBC 0-5 {/hpf} (Normal) Range: 0 - 5 :12 PSA,Total- Diagnostic Comments: [facility] [address] [place], [address] PSA, DIAGNOSTIC 4.20 ng/mL (Abnormal) Range: 0.0-4.0 Comments: This test was performed using the TPSA assay method for [employer] chemistry system. Values obtained with differentassay methods cannot be used interchangably.When changing PSA assays in the course of monitoring apatient, additional sequential testing should be carriedout to confirm baseline values. :49 TSH (71943) Comments: PATIENT WAS FASTINGPERFORMED BY: [facility] Rsxecl2816 [facility]in [place] [id number] TSH 3.530 {uIU/mL} (Normal) Range: 0.450-4.500 :49 CALCIFEDIOL (09455) Comments: PATIENT WAS FASTINGPERFORMED BY: [facility] Eqsvto1700 [facility] [id number] Vitamin D, 25-Hydroxy 28.4 ng/mL (Abnormal) Range: 30.0-100.0 Comments: Vitamin D deficiency has been defined by the [place] ofMedicine and an Endocrine Society practice guideline as alevel of serum 25-OH vitamin D less than 20 ng/mL (1,2).The Endocrine Society went on to further define vitamin Dinsufficiency as a level between 21 and 29 ng/mL (2).1. IOM ([place] of Medicine). 2010. Dietary reference intakes for calcium and D. [place]: The National Academies Press.2. Reuben MF, Stephanie NC, Radha MILLIGAN, et al. Evaluation, treatment, and prevention of vitamin D deficiency: an Endocrine Society clinical practice guideline. JCEM. 2010; 96(7):1911-30. :49 URINALYSIS, W/ MICRO (34447) Comments: PATIENT WAS FASTINGPERFORMED BY: Vista TherapeuticsKessler Institute for RehabilitationVwjuja3003 [facility] [id number] Microscopic Examination See below: (Normal) Comments: Microscopic was indicated and was performed. Microscopic Examination MICRON (Normal) Comments: Microscopic follows if indicated. Nitrite, Urine Negative (Normal) Urobilinogen,Semi-Qn 0.2 mg/dL (Normal) Range: 0.2-1.0 Bilirubin Negative (Normal) Occult Blood Negative (Normal) Ketones Negative (Normal) Glucose Negative (Normal) Protein Negative (Normal) WBC Esterase Negative (Normal) Appearance Clear (Normal) Urine-Color Yellow (Normal) pH 5.5 (Normal) Range: 5.0-7.5 Specific [place] 1.018 (Normal) Range: 1.005-1.030 :49 MICROALBUMIN: CREATININE RATIO Comments: PATIENT WAS FASTINGPERFORMED BY: Vista TherapeuticsKessler Institute for RehabilitationKzihus5351 [facility] [id number] (68347) AND (44449) Alb/Creat Ratio <3.0 {mg/g_creat} (Normal) Range: 0.0-30.0 Albumin, Urine <3.0 ug/mL (Normal) Creatinine, Urine 101.1 mg/dL (Normal) :49 METABOLIC PANEL, COMPREHENSIVE Comments: PATIENT WAS FASTINGPERFORMED BY: Vista TherapeuticsKessler Institute for RehabilitationZiiubd8457 [facility] [id number] (23802) ALT (SGPT) 17 [iU]/L (Normal) Range: 0-44 AST (SGOT) 15 [iU]/L (Normal) Range: 0-40 Alkaline Phosphatase 79 [iU]/L (Normal) Range: 39-117 Bilirubin, Total 1.1 mg/dL (Normal) Range: 0.0-1.2 A/G Ratio 1.6 (Normal) Range: 1.2-2.2 Globulin, Total 2.8 g/dL (Normal) Range: 1.5-4.5 Albumin 4.6 g/dL (Normal) Range: 3.5-4.8 Protein, Total 7.4 g/dL (Normal) Range: 6.0-8.5 Calcium 9.6 mg/dL (Normal) Range: 8.6-10.2 Carbon Dioxide, Total 23 mmol/L (Normal) Range: 18-29 Chloride 102 mmol/L (Normal) Range: 96-106 Potassium 4.8 mmol/L (Normal) Range: 3.5-5.2 Sodium 142 mmol/L (Normal) Range: 134-144 BUN/Creatinine Ratio 16 (Normal) Range: 10-24 eGFR If Africn Am 86 mL/min/1.73 (Normal) eGFR If NonAfricn Am 74 mL/min/1.73 (Normal) Creatinine 1.02 mg/dL (Normal) Range: 0.76-1.27 BUN 16 mg/dL (Normal) Range: 8-27 Glucose 100 mg/dL (Abnormal) Range: 65-99 59-Ugu-76816:49 CBC W/AUTO DIFF WBC (00358) Comments: PATIENT WAS FASTINGPERFORMED BY: LabCoKessler Institute for RehabilitationQbridw0888 [facility] [id number] Immature Grans (Abs) 0.0 {x10E3/uL} (Normal) Range: 0.0-0.1 Immature Granulocytes 0 % (Normal) Baso (Absolute) 0.1 {x10E3/uL} (Normal) Range: 0.0-0.2 Eos (Absolute) 0.4 {x10E3/uL} (Normal) Range: 0.0-0.4 Monocytes(Absolute) 0.5 {x10E3/uL} (Normal) Range: 0.1-0.9 Lymphs (Absolute) 2.7 {x10E3/uL} (Normal) Range: 0.7-3.1 Neutrophils (Absolute) 1.7 {x10E3/uL} (Normal) Range: 1.4-7.0 Basos 1 % (Normal) Eos 7 % (Normal) Monocytes 9 % (Normal) Lymphs 51 % (Normal) Neutrophils 32 % (Normal) Platelets 244 {x10E3/uL} (Normal) Range: 150-379 RDW 13.6 % (Normal) Range: 12.3-15.4 MCHC 33.7 g/dL (Normal) Range: 31.5-35.7 MCH 31.7 pg (Normal) Range: 26.6-33.0 MCV 94 fL (Normal) Range: 79-97 Hematocrit 41.2 % (Normal) Range: 37.5-51.0 Hemoglobin 13.9 g/dL (Normal) Range: 13.0-17.7 RBC 4.39 {x10E6/uL} (Normal) Range: 4.14-5.80 WBC 5.3 {x10E3/uL} (Normal) Range: 3.4-10.8 :49 LIPID PANEL (14014) Comments: PATIENT WAS FASTINGPERFORMED BY: [employer] Ijflmq7731 [facility] [id number] LDL/HDL Ratio 4.3 {ratio} (Abnormal) Range: 0.0-3.6 Comments: LDL/HDL Ratio Men Women 1/2 Avg.Risk 1.0 1.5 Av g.Risk 3.6 3.2 2X Avg.Risk 6.2 5.0 3X Avg.Risk 8.0 6.1 LDL Cholesterol Calc 149 mg/dL (Abnormal) Range: 0-99 VLDL Cholesterol Elvin 36 mg/dL (Normal) Range: 5-40 HDL Cholesterol 35 mg/dL (Abnormal) Triglycerides 181 mg/dL (Abnormal) Range: 0-149 Cholesterol, Total 220 mg/dL (Abnormal) Range: 100-199 :47 Microscopic Examination Comments: PATIENT WAS FASTINGPERFORMED BY: [facility] Gxzulu1006 [facility] [id number] Bacteria Few (Normal) Mucus Threads Present (Normal) Epithelial Cells (non renal) 0-10 {/hpf} (Normal) Range: 0 - 10 RBC 0-2 {/hpf} (Normal) Range: 0 - 2 WBC 0-5 {/hpf} (Normal) Range: 0 - 5 :53 AFP, Tumor Marker Comments: FAX AFP RESULTS TO [phone] Patient ? NComments: ALPHA FETOPROTIEN,SERUM RTLabCorp (refer to report for specific site)refer to report for address and phone number AFP TUMOR 2253 3.1 ng/mL (Normal) Range: 0.0-8.3 Comments: Melodie ECLIA methodology :53 Basic Metabolic Profile (BMP) Comments: Comments: ALPHA FETOPROTIEN,SERUM [facility] [address] [place], [address] GAP 5 (Normal) Range: 5-15 CO2 29.0 mmol/L (Normal) Range: 21.0-32.0 CL 107 mmol/L (Normal) Range: 98-107 K 4.6 mmol/L (Normal) Range: 3.5-5.1 NA 141 mmol/L (Normal) Range: 136-145 CA 9.2 mg/dL (Normal) Range: 8.5-10.1 BUN/CRE 17.5 {RATIO} (Normal) Range: 10-20 EST GFR - AA 98 mL/min (Normal) Comments: GFR Calc EST GFR 81 mL/min (Normal) Comments: Non- GFR Calc CREAT,SERUM 0.97 mg/dL (Normal) Range: 0.70-1.30 Comments: The validity of the calculated GFR AND GFRAA in patients over70 years has not been determined. Clinical correlation isessential. BUN 17 mg/dL (Normal) Range: 7-18 GLU 92 mg/dL (Normal) Range: 70-110 :53 Liver Profile Comments: Comments: ALPHA FETOPROTIEN,SERUM [facility] [address] [place], [address] D BILI 0.24 mg/dL (Normal) Range: 0.00-0.30 T BILI 1.10 mg/dL (Abnormal) Range: 0.20-1.00 ALT 30 U/L (Normal) Range: 12-78 ALK P 85 U/L (Normal) Range: 45-117 AST 17 U/L (Normal) Range: 15-37 GLOB 3.5 g/dL (Normal) Range: 2.3-3.5 ALB 3.9 g/dL (Normal) Range: 3.4-5.0 T PROT 7.4 g/dL (Normal) Range: 6.4-8.2 :53 Phosphorus Comments: Comments: ALPHA FETOPROTIEN,SERUM [facility] [address] [place], [id number] PHOS 2.6 mg/dL (Normal) Range: 2.5-4.9 :53 Prothrombin Time w/INR Comments: [facility] [address] [place], [id number] INR 1.1 (Normal) PROTIME 13.7 s (Normal) Range: 11.7-14.9 :47 TSH (41143) Comments: PATIENT WAS FASTINGPERFORMED BY: Vista TherapeuticsCrownpoint Health Care FacilityJyocof4618 [facility] [id number] TSH 1.580 {uIU/mL} (Normal) Range: 0.450-4.500 :47 URINALYSIS, W/ MICRO (76558) Comments: PATIENT WAS FASTINGPERFORMED BY: [employer] Tgxioe4240 [facility] [id number] Microscopic Examination See below: (Normal) Comments: Microscopic was indicated and was performed. Microscopic Examination MICRON (Normal) Comments: Microscopic follows if indicated. Nitrite, Urine Negative (Normal) Urobilinogen,Semi-Qn 0.2 mg/dL (Normal) Range: 0.2-1.0 Bilirubin Negative (Normal) Occult Blood Negative (Normal) Ketones Negative (Normal) Glucose Negative (Normal) Protein Negative (Normal) WBC Esterase Negative (Normal) Appearance Clear (Normal) Urine-Color Yellow (Normal) pH 5.5 (Normal) Range: 5.0-7.5 Specific [place] 1.026 (Normal) Range: 1.005-1.030 :47 MICROALBUMIN: CREATININE RATIO Comments: PATIENT WAS FASTINGPERFORMED BY: [employer] Wovtry4378 [facility] [id number] (33091) AND (30302) Microalb/Creat Ratio 3.1 {mg/g_creat} (Normal) Range: 0.0-30.0 Microalbumin, Urine 5.4 ug/mL (Normal) Creatinine, Urine 172.4 mg/dL (Normal) :47 METABOLIC PANEL, COMPREHENSIVE Comments: PATIENT WAS FASTINGPERFORMED BY: Vista TherapeuticsCrownpoint Health Care FacilityByutfs7816 [facility] [id number] (63337) ALT (SGPT) 19 [iU]/L (Normal) Range: 0-44 AST (SGOT) 17 [iU]/L (Normal) Range: 0-40 Alkaline Phosphatase, S 85 [iU]/L (Normal) Range: 39-117 Bilirubin, Total 1.4 mg/dL (Abnormal) Range: 0.0-1.2 A/G Ratio 1.4 (Normal) Range: 1.2-2.2 Globulin, Total 3.0 g/dL (Normal) Range: 1.5-4.5 Albumin, Serum 4.2 g/dL (Normal) Range: 3.5-4.8 Protein, Total, Serum 7.2 g/dL (Normal) Range: 6.0-8.5 Calcium, Serum 9.5 mg/dL (Normal) Range: 8.6-10.2 Carbon Dioxide, Total 23 mmol/L (Normal) Range: 18-29 Chloride, Serum 105 mmol/L (Normal) Range: 96-106 Potassium, Serum 4.6 mmol/L (Normal) Range: 3.5-5.2 Sodium, Serum 143 mmol/L (Normal) Range: 134-144 BUN/Creatinine Ratio 19 (Normal) Range: 10-24 eGFR If Africn Am 92 mL/min/1.73 (Normal) eGFR If NonAfricn Am 80 mL/min/1.73 (Normal) Creatinine, Serum 0.96 mg/dL (Normal) Range: 0.76-1.27 BUN 18 mg/dL (Normal) Range: 8-27 Glucose, Serum 99 mg/dL (Normal) Range: 65-99 61-Waf-843163:47 CBC W/AUTO DIFF WBC (58496) Comments: PATIENT WAS FASTINGPERFORMED BY: SARA [facility] Wpwnvz8053 [place] [facility] [id number] Immature Grans (Abs) 0.0 {x10E3/uL} (Normal) Range: 0.0-0.1 Immature Granulocytes 0 % (Normal) Baso (Absolute) 0.0 {x10E3/uL} (Normal) Range: 0.0-0.2 Eos (Absolute) 0.3 {x10E3/uL} (Normal) Range: 0.0-0.4 Monocytes(Absolute) 0.6 {x10E3/uL} (Normal) Range: 0.1-0.9 Lymphs (Absolute) 2.1 {x10E3/uL} (Normal) Range: 0.7-3.1 Neutrophils (Absolute) 1.9 {x10E3/uL} (Normal) Range: 1.4-7.0 Basos 1 % (Normal) Eos 6 % (Normal) Monocytes 12 % (Normal) Lymphs 43 % (Normal) Neutrophils 38 % (Normal) Platelets 217 {x10E3/uL} (Normal) Range: 150-379 RDW 14.0 % (Normal) Range: 12.3-15.4 MCHC 33.6 g/dL (Normal) Range: 31.5-35.7 MCH 31.8 pg (Normal) Range: 26.6-33.0 MCV 95 fL (Normal) Range: 79-97 Hematocrit 38.4 % (Normal) Range: 37.5-51.0 Hemoglobin 12.9 g/dL (Normal) Range: 12.6-17.7 RBC 4.06 {x10E6/uL} (Abnormal) Range: 4.14-5.80 WBC 4.9 {x10E3/uL} (Normal) Range: 3.4-10.8 52-Paa-008764:47 LIPID PANEL (35056) Comments: PATIENT WAS FASTINGPERFORMED BY: LabCoKessler Institute for RehabilitationWqzamh1997 [facility] [id number]; will review on 05/22 LDL/HDL Ratio 3.6 {ratio_units} (Normal) Range: 0.0-3.6 Comments: LDL/HDL Ratio Men Women 1/2 Avg.Risk 1.0 1.5 Av g.Risk 3.6 3.2 2X Avg.Risk 6.2 5.0 3X Avg.Risk 8.0 6.1 LDL Cholesterol Calc 129 mg/dL (Abnormal) Range: 0-99 VLDL Cholesterol Elvin 19 mg/dL (Normal) Range: 5-40 HDL Cholesterol 36 mg/dL (Abnormal) Triglycerides 95 mg/dL (Normal) Range: 0-149 Cholesterol, Total 184 mg/dL (Normal) Range: 100-199 4-Gfd-857177:09 PSA,Total- Diagnostic Comments: [facility] [address] [place], [address] PSA, DIAGNOSTIC 6.85 ng/mL (Abnormal) Range: 0.0-4.0 Comments: This test was performed using the TPSA assay method for the[employer] chemistry system. Values obtained with differentassay methods cannot be used interchangably.When changing PSA assays in the course of monitoring apatient, additional sequential testing should be carriedout to confirm baseline values. :53 AFP, Tumor Marker Comments: Is Patient ? NComments: N/ALabCorp (refer to report for specific site)refer to report for address and phone number AFP TUMOR 2253 2.1 ng/mL (Normal) Range: 0.0-8.3 Comments: [employer] ECLIA methodologyPerformed at: [employer] [facility] [address] [id number] Director: Josef Ventura PhD, Phone: [phone] 7-Gzf-350824:53 Basic Metabolic Profile (BMP) Comments: Comments: [facility] [address] [place], [place], [id number] GAP 8 (Normal) Range: 5-15 CO2 26.0 mmol/L (Normal) Range: 21.0-32.0 CL 105 mmol/L (Normal) Range: 98-107 K 4.3 mmol/L (Normal) Range: 3.5-5.1 NA 139 mmol/L (Normal) Range: 136-145 CA 9.0 mg/dL (Normal) Range: 8.5-10.1 BUN/CRE 17.1 {RATIO} (Normal) Range: 10-20 EST GFR - AA 90 mL/min (Normal) Comments: GFR Calc EST GFR 74 mL/min (Normal) Comments: Non- GFR Calc CREAT,SERUM 1.05 mg/dL (Normal) Range: 0.70-1.30 Comments: The validity of the calculated GFR AND GFRAA in patients over70 years has not been determined. Clinical correlation isessential. BUN 18 mg/dL (Normal) Range: 7-18 GLU 104 mg/dL (Normal) Range: 70-110 :53 Liver Profile Comments: Comments: [facility] [id number] [place], [place], [id number] D BILI 0.23 mg/dL (Normal) Range: 0.00-0.30 T BILI 1.00 mg/dL (Normal) Range: 0.20-1.00 ALT 26 U/L (Normal) Range: 12-78 ALK P 98 U/L (Normal) Range: 45-117 AST 19 U/L (Normal) Range: 15-37 GLOB 3.8 g/dL (Abnormal) Range: 2.3-3.5 ALB 3.9 g/dL (Normal) Range: 3.4-5.0 T PROT 7.7 g/dL (Normal) Range: 6.4-8.2 [id number] Phosphorus Comments: Comments: /[facility] [id number] [facility]. [place], [place], [address] PHOS 2.3 mg/dL (Abnormal) Range: 2.5-4.9 [id number] Prothrombin Time w/INR Comments: [facility] [id number] [place], [place], [address] INR 1.1 (Normal) PROTIME 13.4 s (Normal) Range: 11.7-14.9 [id number] MICROALBUMIN: CREATININE RATIO Comments: PATIENT WAS FASTINGPERFORMED BY: [facility] [id number] [facility] [id number] ([id number]) AND ([id number]) Microalb/Creat Ratio 5.7 {mg/g_creat} (Normal) Range: 0.0-30.0 Microalbumin, Urine 9.7 ug/mL (Normal) Creatinine, Urine 169.8 mg/dL (Normal) [id number]-Jnj-[id number]:24 VITAMIN B12 AND FOLATES Comments: PATIENT WAS FASTINGPERFORMED BY: [facility]CoK[facility] for RehabilitationZosljw1491 [facility] [id number] ([id number]) Folate (Folic Acid), Serum >20.0 ng/mL (Normal) Comments: A serum folate concentration of less than 3.1 ng/mL isconsidered to represent clinical deficiency. Vitamin B12 323 pg/mL (Normal) Range: 211-946 :24 CALCIFEDIOL (05577) Comments: PATIENT WAS FASTINGPERFORMED BY: 15[facility]6370 [facility] [id number] Vitamin D, 25-Hydroxy 33.2 ng/mL (Normal) Range: 30.0-100.0 Comments: Vitamin D deficiency has been defined by the [place] [facility] and an Endocrine Society practice guideline as alevel of serum 25-OH vitamin D less than 20 ng/mL (1,2).The Endocrine Society went on to further define vitamin Dinsufficiency as a level between 21 and 29 ng/mL (2).1. IOM ([place] of Medicine). 2010. Dietary reference intakes for calcium and D. [place]: The National Academies Press.2. Reuben MF, Stephanie CLARK, Radha MILLIGAN, et al. Evaluation, treatment, and prevention of vitamin D deficiency: an Endocrine Society clinical practice guideline. JCEM. 2010; 96(7):1911-30. 16-Oby-791041:24 TSH (THYROID STIMULATING Comments: PATIENT WAS FASTINGPERFORMED BY: [facility] Noarhf6716 [facility] [id number] HORMONE) ([id number]) TSH 2.410 {uIU/mL} (Normal) Range: 0.450-4.500 :24 LIPID PANEL (72950) Comments: PATIENT WAS FASTINGPERFORMED BY: LabAsp[facility] Hospital6370 [facility] [id number] LDL/HDL Ratio 3.7 {ratio_units} (Abnormal) Range: 0.0-3.6 Comments: LDL/HDL Ratio Men Women 1/2 Avg.Risk 1.0 1.5 Av g.Risk 3.6 3.2 2X Avg.Risk 6.2 5.0 3X Avg.Risk 8.0 6.1 LDL Cholesterol Calc 130 mg/dL (Abnormal) Range: 0-99 VLDL Cholesterol Elvin 22 mg/dL (Normal) Range: 5-40 HDL Cholesterol 35 mg/dL (Abnormal) Triglycerides 109 mg/dL (Normal) Range: 0-149 Cholesterol, Total 187 mg/dL (Normal) Range: 100-199 47-Mfs-468933:24 METABOLIC PANEL, COMPREHENSIVE Comments: PATIENT WAS FASTINGPERFORMED BY: [employer] Wlsflz9561 [facility] [id number] ([id number]) ALT (SGPT) 30 [iU]/L (Normal) Range: 0-44 AST (SGOT) 23 [iU]/L (Normal) Range: 0-40 Alkaline Phosphatase, S 87 [iU]/L (Normal) Range: 39-117 Bilirubin, Total 1.6 mg/dL (Abnormal) Range: 0.0-1.2 A/G Ratio 1.8 (Normal) Range: 1.2-2.2 Globulin, Total 2.4 g/dL (Normal) Range: 1.5-4.5 Albumin, Serum 4.4 g/dL (Normal) Range: 3.6-4.8 Protein, Total, Serum 6.8 g/dL (Normal) Range: 6.0-8.5 Calcium, Serum 9.5 mg/dL (Normal) Range: 8.6-10.2 Carbon Dioxide, Total 23 mmol/L (Normal) Range: 18-29 Chloride, Serum 103 mmol/L (Normal) Range: 96-106 Potassium, Serum 4.6 mmol/L (Normal) Range: 3.5-5.2 Sodium, Serum 140 mmol/L (Normal) Range: 134-144 BUN/Creatinine Ratio 15 (Normal) Range: 10-24 eGFR If Africn Am 81 mL/min/1.73 (Normal) eGFR If NonAfricn Am 70 mL/min/1.73 (Normal) Creatinine, Serum 1.08 mg/dL (Normal) Range: 0.76-1.27 BUN 16 mg/dL (Normal) Range: 8-27 Glucose, Serum 99 mg/dL (Normal) Range: 65-99 77-Cin-660700:24 CBC, PLATELETS & AUT DIFF Comments: PATIENT WAS FASTINGPERFORMED BY: [facility] Azjmve8719 [facility] [id number]; fu 4-24 KF ([id number]) Immature Grans (Abs) 0.0 {x10E3/uL} (Normal) Range: 0.0-0.1 Immature Granulocytes 0 % (Normal) Baso (Absolute) 0.0 {x10E3/uL} (Normal) Range: 0.0-0.2 Eos (Absolute) 0.3 {x10E3/uL} (Normal) Range: 0.0-0.4 Monocytes(Absolute) 0.6 {x10E3/uL} (Normal) Range: 0.1-0.9 Lymphs (Absolute) 2.2 {x10E3/uL} (Normal) Range: 0.7-3.1 Neutrophils (Absolute) 1.9 {x10E3/uL} (Normal) Range: 1.4-7.0 Basos 1 % (Normal) Eos 6 % (Normal) Monocytes 12 % (Normal) Lymphs 44 % (Normal) Neutrophils 37 % (Normal) Platelets 201 {x10E3/uL} (Normal) Range: 150-379 RDW 13.7 % (Normal) Range: 12.3-15.4 MCHC 33.5 g/dL (Normal) Range: 31.5-35.7 MCH 31.5 pg (Normal) Range: 26.6-33.0 MCV 94 fL (Normal) Range: 79-97 Hematocrit 40.3 % (Normal) Range: 37.5-51.0 Hemoglobin 13.5 g/dL (Normal) Range: 12.6-17.7 RBC 4.28 {x10E6/uL} (Normal) Range: 4.14-5.80 WBC 5.0 {x10E3/uL} (Normal) Range: 3.4-10.8 :30 AFP, Tumor Marker Comments: Is [facility] ? [facility] (refer to report for specific site)refer to report for address and phone number AFP TUMOR 2253 2.6 ng/mL (Normal) Range: 0.0-8.3 Comments: Melodie ECLIA methodologyPerformed at: [facility] [address] [id number] Director: Josef Ventura PhD, Phone: [phone] Bilirubin, Direct Comments: [facility] [address] [place], [place], [id number] D BILI 0.29 mg/dL (Normal) Range: 0.00-0.30 :30 Comprehensive Metabolic Profil Comments: [facility] [address] [place], [place], [id number] GAP 8 (Normal) Range: 5-15 CO2 26.0 mmol/L (Normal) Range: 21.0-32.0 CL 105 mmol/L (Normal) Range: 98-107 K 4.4 mmol/L (Normal) Range: 3.5-5.1 NA 139 mmol/L (Normal) Range: 136-145 T BILI 1.50 mg/dL (Abnormal) Range: 0.20-1.00 ALT 26 U/L (Normal) Range: 12-78 ALK P 100 U/L (Normal) Range: 45-117 AST 18 U/L (Normal) Range: 15-37 CA 8.7 mg/dL (Normal) Range: 8.5-10.1 A/G 1.2 {RATIO} (Normal) Range: 0.9-2.4 GLOB 3.4 g/dL (Normal) Range: 2.3-3.5 ALB 4.1 g/dL (Normal) Range: 3.4-5.0 T PROT 7.5 g/dL (Normal) Range: 6.4-8.2 BUN/CRE 14.3 {RATIO} (Normal) Range: 10-20 EST GFR - AA 90 mL/min (Normal) Comments: GFR Calc EST GFR 74 mL/min (Normal) Comments: Non- GFR Calc CREAT,SERUM 1.05 mg/dL (Normal) Range: 0.70-1.30 Comments: The validity of the calculated GFR AND GFRAA in patients over70 years has not been determined. Clinical correlation isessential. BUN 15 mg/dL (Normal) Range: 7-18 GLU 102 mg/dL (Normal) Range: 70-110 :30 Phosphorus Comments: [facility] [address] [place], [place], [id number] PHOS 2.4 mg/dL (Abnormal) Range: 2.5-4.9 :30 Prothrombin Time w/INR Comments: [facility] [address] [place], [place], [id number] INR 1.1 (Normal) PROTIME 13.4 s (Normal) Range: 11.7-14.9 :35 CALCIFEDIOL (08525) Comments: PATIENT WAS FASTINGPERFORMED BY: [facility]6370 [facility] [id number] Vitamin D, 25-Hydroxy 45.6 ng/mL (Normal) Range: 30.0-100.0 Comments: Vitamin D deficiency has been defined by the [place] [facility] [facility] and an Endocrine Society practice guideline as alevel of serum 25-OH vitamin D less than 20 ng/mL (1,2).The Endocrine Society went on to further define vitamin Dinsufficiency as a level between 21 and 29 ng/mL (2).1. IOM ([place] of Medicine). 2010. Dietary reference intakes for calcium and D. [place]: The National Academies Press.2. Reuben MF, Stephanie CLARK, Radha MILLIGAN, et al. Evaluation, treatment, and prevention of vitamin D deficiency: an Endocrine Society clinical practice guideline. JCEM. 2010; 96(7):1911-30. :35 METABOLIC PANEL, COMPREHENSIVE Comments: PATIENT WAS FASTINGPERFORMED BY: [facility] TherapeuticsKessler Institute for RehabilitationHynhnx0529 [facility] [id number] ([id number]) ALT (SGPT) 18 [iU]/L (Normal) Range: 0-44 AST (SGOT) 16 [iU]/L (Normal) Range: 0-40 Alkaline Phosphatase, S 95 [iU]/L (Normal) Range: 39-117 Bilirubin, Total 1.6 mg/dL (Abnormal) Range: 0.0-1.2 A/G Ratio 1.9 (Normal) Range: 1.1-2.5 Globulin, Total 2.4 g/dL (Normal) Range: 1.5-4.5 Albumin, Serum 4.6 g/dL (Normal) Range: 3.6-4.8 Protein, Total, Serum 7.0 g/dL (Normal) Range: 6.0-8.5 Calcium, Serum 9.6 mg/dL (Normal) Range: 8.6-10.2 Carbon Dioxide, Total 21 mmol/L (Normal) Range: 18-29 Chloride, Serum 102 mmol/L (Normal) Range: 96-106 Potassium, Serum 4.8 mmol/L (Normal) Range: 3.5-5.2 Sodium, Serum 142 mmol/L (Normal) Range: 134-144 BUN/Creatinine Ratio 16 (Normal) Range: 10-22 eGFR If Africn Am 87 mL/min/1.73 (Normal) eGFR If NonAfricn Am 76 mL/min/1.73 (Normal) Creatinine, Serum 1.01 mg/dL (Normal) Range: 0.76-1.27 BUN 16 mg/dL (Normal) Range: 8-27 Glucose, Serum 101 mg/dL (Abnormal) Range: 65-99 :35 LIPID PANEL (99324) Comments: PATIENT WAS FASTINGPERFORMED BY: [facility]CoK[facility] Institute for RehabilitationGcjtqq4941 [facility] [id number] LDL/HDL Ratio 4.4 {ratio_units} (Abnormal) Range: 0.0-3.6 Comments: LDL/HDL Ratio Men Women 1/2 Avg.Risk 1.0 1.5 Av g.Risk 3.6 3.2 2X Avg.Risk 6.2 5.0 3X Avg.Risk 8.0 6.1 LDL Cholesterol Calc 151 mg/dL (Abnormal) Range: 0-99 VLDL Cholesterol Elvin 33 mg/dL (Normal) Range: 5-40 HDL Cholesterol 34 mg/dL (Abnormal) Triglycerides 165 mg/dL (Abnormal) Range: 0-149 Cholesterol, Total 218 mg/dL (Abnormal) Range: 100-199 :13 PSA,Total- Diagnostic Comments: [facility] Z[address]qx3968 [facility] [place], [place], [id number] PSA, DIAGNOSTIC 6.86 ng/mL (Abnormal) Range: 0.0-4.0 Comments: This test was performed using the TPSA assay method for the(In)Touch Network chemistry system. Values obtained with differentassay methods cannot be used interchangably.When changing PSA assays in the course of monitoring apatient, additional sequential testing should be carriedout to confirm baseline values. :29 HgA1C , Office (03061) HgA1C , Office 5.6 % (Normal) Range: 4.6 - 7.1 :19 AFP, Tumor Marker Comments: Is Patient ? [facility] (refer to report for specific site)refer to report for address and phone number AFP TUMOR 2253 3.8 ng/mL (Normal) Range: 0.0-8.3 Comments: [employer] ECLIA methodologyPerformed at: [facility] [address] [id number] Director: Josef Ventura PhD, Phone: [phone] 15-Egx-15033:19 Basic Metabolic Profile (BMP) Comments: [facility] [address] [place], [address] GAP 6 (Normal) Range: 5-15 CO2 27.0 mmol/L (Normal) Range: 21.0-32.0 CL 104 mmol/L (Normal) Range: 98-107 K 3.7 mmol/L (Normal) Range: 3.5-5.1 NA 137 mmol/L (Normal) Range: 136-145 CA 8.6 mg/dL (Normal) Range: 8.5-10.1 BUN/CRE 17.2 {RATIO} (Normal) Range: 10-20 EST GFR - AA 121 mL/min (Normal) Comments: GFR Calc EST GFR 100 mL/min (Normal) Comments: Non- GFR Calc CREAT,SERUM 0.82 mg/dL (Normal) Range: 0.70-1.30 Comments: The validity of the calculated GFR AND GFRAA in patients over70 years has not been determined. Clinical correlation isessential. BUN 14 mg/dL (Normal) Range: 7-18 GLU 92 mg/dL (Normal) Range: 70-110 :19 CBC W/Diff, Automated Comments: [facility] [address] [place], [address] Absolute Lymph 2.14 {X10_3/ul} (Normal) Range: 0.83-4.51 Absolute Neut 2.8 {X10_3/uL} (Normal) Range: 2.0-7.7 IM GRAN % 0.200 % (Normal) Range: 0.0-0.9 Comments: IG% - Immature Granulocytes (promyelocytes, myelocytes andmetamyelocytes) > 1% indicates that a LEFT SHIFT is Present. BASO% 1.0 % (Normal) Range: 0-1 EO% 5.9 % (Abnormal) Range: 0-5 MONO% 8.6 % (Normal) Range: 0-10 LY% 36.3 % (Normal) Range: 19-41 NEUT% 48.0 % (Normal) Range: 47-70 MPV 10.5 fL (Normal) Range: 6.2-12.0 PLT 183 K/mm3 (Normal) Range: 150-450 RDW SD 46.0 fL (Abnormal) Range: 35.1-43.9 RDW CV 13.2 % (Normal) Range: 11.6-14.6 MCHC 34.8 {g/gl} (Normal) Range: 32-36 MCH 32.9 pg (Abnormal) Range: 27.0-32.0 MCV 94.5 fL (Abnormal) Range: 80-94 HCT 41.1 % (Normal) Range: 40-54 HGB 14.3 g/dL (Normal) Range: 13.0-16.5 RBC 4.35 {M/mm3} (Abnormal) Range: 4.6-6.2 WBC 5.9 K/mm3 (Normal) Range: 4.4-11.0 :19 Liver Profile Comments: [facility] [address] [place], [place], [id number] D BILI 0.21 mg/dL (Normal) Range: 0.00-0.30 T BILI 1.50 mg/dL (Abnormal) Range: 0.20-1.00 ALT 23 U/L (Normal) Range: 12-78 ALK P 89 U/L (Normal) Range: 50-136 AST 15 U/L (Normal) Range: 15-37 GLOB 3.6 g/dL (Abnormal) Range: 2.3-3.5 ALB 3.7 g/dL (Normal) Range: 3.4-5.0 T PROT 7.3 g/dL (Normal) Range: 6.4-8.2 :19 Phosphorus Comments: [facility] [address] [place], [place], [phone] PHOS 2.5 mg/dL (Normal) Range: 2.5-4.9 :19 Prothrombin Time w/INR Comments: [facility] [address] [place], [address] INR 1.1 (Normal) PROTIME 13.6 s (Normal) Range: 11.7-14.9 83-Nee-178301:21 VITAMIN B12 AND FOLATES Comments: PATIENT WAS FASTINGPERFORMED BY: [facility] Amywnx5723 [facility] [id number] ([id number]) Folate (Folic Acid), Serum >20.0 ng/mL (Normal) Comments: A serum folate concentration of less than 3.1 ng/mL isconsidered to represent clinical deficiency. Vitamin B12 358 pg/mL (Normal) Range: 211-946 :21 CALCIFEDIOL (14509) Comments: PATIENT WAS FASTINGPERFORMED BY: [facility] Exkvge3609 [facility] [id number] Vitamin D, 25-Hydroxy 18.2 ng/mL (Abnormal) Range: 30.0-100.0 Comments: Vitamin D deficiency has been defined by the [place] ofMedicine and an Endocrine Society practice guideline as alevel of serum 25-OH vitamin D less than 20 ng/mL (1,2).The Endocrine Society went on to further define vitamin Dinsufficiency as a level between 21 and 29 ng/mL (2).1. IOM ([place] of Medicine). 2010. Dietary reference intakes for calcium and D. [place]: The National Academies Press.2. Reuben MF, Stephanie NC, Radha MILLIGAN, et al. Evaluation, treatment, and prevention of vitamin D deficiency: an Endocrine Society clinical practice guideline. JCEM. 2010; 96(7):1911-30. 52-Ndk-610520:21 LIPID PANEL (03505) Comments: PATIENT WAS FASTINGPERFORMED BY: [facility] Ykttgt5379 [facility] [place] [id number] VLDL Cholesterol Elvin VLDLCH mg/dL (Normal) Range: 5-40 Comments: The calculation for the VLDL cholesterol is not valid whentriglyceride level is >400 mg/dL.Triglyceride result indicated is too high for an accurate LDLcholesterol estimation. HDL Cholesterol 25 mg/dL (Abnormal) Comments: According to ATP-III Guidelines, HDL-C >59 mg/dL is considered anegative risk factor for CHD. Triglycerides 500 mg/dL (Abnormal) Range: 0-149 Cholesterol, Total 262 mg/dL (Abnormal) Range: 100-199 77-Ldg-432810:21 METABOLIC PANEL, COMPREHENSIVE Comments: PATIENT WAS FASTINGPERFORMED BY: [employer] Uriostegui [facility] [id number] ([id number]) ALT (SGPT) 17 [iU]/L (Normal) Range: 0-44 AST (SGOT) 17 [iU]/L (Normal) Range: 0-40 Alkaline Phosphatase, S 91 [iU]/L (Normal) Range: 39-117 Bilirubin, Total 0.9 mg/dL (Normal) Range: 0.0-1.2 A/G Ratio 1.3 (Normal) Range: 1.1-2.5 Globulin, Total 2.9 g/dL (Normal) Range: 1.5-4.5 Albumin, Serum 3.9 g/dL (Normal) Range: 3.6-4.8 Protein, Total, Serum 6.8 g/dL (Normal) Range: 6.0-8.5 Calcium, Serum 9.2 mg/dL (Normal) Range: 8.6-10.2 Carbon Dioxide, Total 25 mmol/L (Normal) Range: 18-29 Chloride, Serum 103 mmol/L (Normal) Range: 97-106 Potassium, Serum 4.9 mmol/L (Normal) Range: 3.5-5.2 Sodium, Serum 142 mmol/L (Normal) Range: 136-144 BUN/Creatinine Ratio 16 (Normal) Range: 10-22 eGFR If Africn Am 96 mL/min/1.73 (Normal) eGFR If NonAfricn Am 83 mL/min/1.73 (Normal) Creatinine, Serum 0.93 mg/dL (Normal) Range: 0.76-1.27 BUN 15 mg/dL (Normal) Range: 8-27 Glucose, Serum 102 mg/dL (Abnormal) Range: 65-99 50-Opb-953579:21 CBC, PLATELETS & AUT DIFF Comments: PATIENT WAS FASTINGPERFORMED BY: [employer] Yqefik7571 [facility] [id number] ([id number]) Immature Grans (Abs) 0.0 {x10E3/uL} (Normal) Range: 0.0-0.1 Immature Granulocytes 0 % (Normal) Baso (Absolute) 0.1 {x10E3/uL} (Normal) Range: 0.0-0.2 Eos (Absolute) 0.3 {x10E3/uL} (Normal) Range: 0.0-0.4 Monocytes(Absolute) 0.6 {x10E3/uL} (Normal) Range: 0.1-0.9 Lymphs (Absolute) 2.3 {x10E3/uL} (Normal) Range: 0.7-3.1 Neutrophils (Absolute) 2.1 {x10E3/uL} (Normal) Range: 1.4-7.0 Basos 1 % (Normal) Eos 6 % (Normal) Monocytes 12 % (Normal) Lymphs 42 % (Normal) Neutrophils 39 % (Normal) Platelets 201 {x10E3/uL} (Normal) Range: 150-379 RDW 13.7 % (Normal) Range: 12.3-15.4 MCHC 35.1 g/dL (Normal) Range: 31.5-35.7 MCH 32.4 pg (Normal) Range: 26.6-33.0 MCV 92 fL (Normal) Range: 79-97 Hematocrit 42.2 % (Normal) Range: 37.5-51.0 Hemoglobin 14.8 g/dL (Normal) Range: 12.6-17.7 RBC 4.57 {x10E6/uL} (Normal) Range: 4.14-5.80 WBC 5.4 {x10E3/uL} (Normal) Range: 3.4-10.8 :49 Microscopic Examination Comments: PATIENT WAS FASTINGPERFORMED BY: [facility]CoK[facility] Institute for RehabilitationXrqadj2886 [facility] [id number] Bacteria None seen (Normal) Mucus Threads Present (Normal) Epithelial Cells (non renal) 0-10 {/hpf} (Normal) Range: 0 - 10 RBC 0-2 {/hpf} (Normal) Range: 0 - 2 WBC 0-5 {/hpf} (Normal) Range: 0 - 5 :22 Basic Metabolic Profile (BMP) Comments: PLEASE ADD LIVER TO [facility]LOOD [facility] THIS [facility]INGChildren[facility] [address], [id number] GAP 6 (Normal) Range: 5-15 CO2 28.0 mmol/L (Normal) Range: 21.0-32.0 CL 107 mmol/L (Normal) Range: 98-107 K 4.7 mmol/L (Normal) Range: 3.5-5.1 NA 141 mmol/L (Normal) Range: 136-145 CA 8.8 mg/dL (Normal) Range: 8.5-10.1 BUN/CRE 17.5 {RATIO} (Normal) Range: 10-20 EST GFR - AA 99 mL/min (Normal) Comments: GFR Calc EST GFR 82 mL/min (Normal) Comments: Non- GFR Calc CREAT,SERUM 0.97 mg/dL (Normal) Range: 0.70-1.30 Comments: The validity of the calculated GFR AND GFRAA in patients over70 years has not been determined. Clinical correlation isessential. BUN 17 mg/dL (Normal) Range: 7-18 GLU 97 mg/dL (Normal) Range: 70-110 07-Jan-20168:22 CBC W/Diff, Automated Comments: [facility] [address] [place], [address] Absolute Lymph 2.03 {X10_3/ul} (Normal) Range: 0.83-4.51 Absolute Neut 2.1 {X10_3/uL} (Normal) Range: 2.0-7.7 IM GRAN % 0.200 % (Normal) Range: 0.0-0.9 Comments: IG% - Immature Granulocytes (promyelocytes, myelocytes andmetamyelocytes) > 1% indicates that a LEFT SHIFT is Present. BASO% 0.6 % (Normal) Range: 0-1 EO% 4.8 % (Normal) Range: 0-5 MONO% 11.0 % (Abnormal) Range: 0-10 LY% 40.6 % (Normal) Range: 19-41 NEUT% 42.8 % (Abnormal) Range: 47-70 MPV 10.5 fL (Normal) Range: 6.2-12.0 PLT 192 K/mm3 (Normal) Range: 150-450 RDW SD 44.6 fL (Abnormal) Range: 35.1-43.9 RDW CV 13.4 % (Normal) Range: 11.6-14.6 MCHC 34.1 {g/gl} (Normal) Range: 32-36 MCH 32.3 pg (Abnormal) Range: 27.0-32.0 MCV 94.5 fL (Abnormal) Range: 80-94 HCT 41.6 % (Normal) Range: 40-54 HGB 14.2 g/dL (Normal) Range: 13.0-16.5 RBC 4.40 {M/mm3} (Abnormal) Range: 4.6-6.2 WBC 5.0 K/mm3 (Normal) Range: 4.4-11.0 :22 Liver Profile Comments: PLEASE ADD LIVER TO BLOOD FROM THIS [facility] [address] [place], [place], [id number] D BILI 0.23 mg/dL (Normal) Range: 0.00-0.30 T BILI 1.60 mg/dL (Abnormal) Range: 0.20-1.00 ALT 27 U/L (Normal) Range: 12-78 ALK P 95 U/L (Normal) Range: 50-136 AST 17 U/L (Normal) Range: 15-37 GLOB 3.6 g/dL (Abnormal) Range: 2.3-3.5 ALB 3.9 g/dL (Normal) Range: 3.4-5.0 T PROT 7.5 g/dL (Normal) Range: 6.4-8.2 :22 Phosphorus Comments: PLEASE ADD LIVER TO BLOOD FROM THIS [facility] [address] [place], [place], [phone] PHOS 2.5 mg/dL (Normal) Range: 2.5-4.9 :22 Prothrombin Time w/INR Comments: [facility] [address] [place], [place], [id number] INR 1.1 (Normal) PROTIME 13.6 s (Normal) Range: 11.7-14.9 :49 URINALYSIS, W/ MICRO ([id number]) Comments: PATIENT WAS FASTINGPERFORMED BY: [facility]CoK[facility]ler Institute for RehabilitationBygskl8009 [facility] [id number] Microscopic Examination See below: (Normal) Comments: Microscopic was indicated and was performed. Microscopic Examination MICRON (Normal) Comments: Microscopic follows if indicated. Nitrite, Urine Negative (Normal) Urobilinogen,Semi-Qn 0.2 mg/dL (Normal) Range: 0.2-1.0 Bilirubin Negative (Normal) Occult Blood Negative (Normal) Ketones Trace (Abnormal) Glucose Negative (Normal) Protein Negative (Normal) WBC Esterase Negative (Normal) Appearance Clear (Normal) Urine-Color Yellow (Normal) pH 6.0 (Normal) Range: 5.0-7.5 Specific [place] 1.030 (Normal) Range: 1.005-1.030 :49 CBC W/AUTO DIFF WBC Comments: PATIENT WAS FASTINGPERFORMED BY: [facility] Jdntyn0377 [facility] [id number] Information: [id number] ([id number]) Immature Grans (Abs) 0.0 {x10E3/uL} (Normal) Range: 0.0-0.1 Immature Granulocytes 0 % (Normal) Baso (Absolute) 0.1 {x10E3/uL} (Normal) Range: 0.0-0.2 Eos (Absolute) 0.2 {x10E3/uL} (Normal) Range: 0.0-0.4 Monocytes(Absolute) 0.5 {x10E3/uL} (Normal) Range: 0.1-0.9 Lymphs (Absolute) 1.8 {x10E3/uL} (Normal) Range: 0.7-3.1 Neutrophils (Absolute) 1.9 {x10E3/uL} (Normal) Range: 1.4-7.0 Basos 1 % (Normal) Eos 5 % (Normal) Monocytes 11 % (Normal) Lymphs 39 % (Normal) Neutrophils 44 % (Normal) Platelets 213 {x10E3/uL} (Normal) Range: 150-379 RDW 14.0 % (Normal) Range: 12.3-15.4 MCHC 32.0 g/dL (Normal) Range: 31.5-35.7 MCH 31.3 pg (Normal) Range: 26.6-33.0 MCV 98 fL (Abnormal) Range: 79-97 Hematocrit 41.3 % (Normal) Range: 37.5-51.0 Hemoglobin 13.2 g/dL (Normal) Range: 12.6-17.7 RBC 4.22 {x10E6/uL} (Normal) Range: 4.14-5.80 WBC 4.5 {x10E3/uL} (Normal) Range: 3.4-10.8 :49 LIPID PANEL (77013) Comments: PATIENT WAS FASTINGPERFORMED BY: [employer] Yykvwc6875 [facility] [id number] LDL/HDL Ratio 4.5 {ratio_units} (Abnormal) Range: 0.0-3.6 Comments: LDL/HDL Ratio Men Women 1/2 Avg.Risk 1.0 1.5 Av g.Risk 3.6 3.2 2X Avg.Risk 6.2 5.0 3X Avg.Risk 8.0 6.1 LDL Cholesterol Calc 134 mg/dL (Abnormal) Range: 0-99 VLDL Cholesterol Elvin 39 mg/dL (Normal) Range: 5-40 HDL Cholesterol 30 mg/dL (Abnormal) Comments: According to ATP-III Guidelines, HDL-C >59 mg/dL is considered anegative risk factor for CHD. Triglycerides 197 mg/dL (Abnormal) Range: 0-149 Cholesterol, Total 203 mg/dL (Abnormal) Range: 100-199 :49 METABOLIC PANEL, COMPREHENSIVE Comments: PATIENT WAS FASTINGPERFORMED BY: [employer] Figvnt8061 [facility] [id number] ([id number]) ALT (SGPT) 15 [iU]/L (Normal) Range: 0-44 AST (SGOT) 14 [iU]/L (Normal) Range: 0-40 Alkaline Phosphatase, S 84 [iU]/L (Normal) Range: 39-117 Bilirubin, Total 1.4 mg/dL (Abnormal) Range: 0.0-1.2 A/G Ratio 2.0 (Normal) Range: 1.1-2.5 Globulin, Total 2.2 g/dL (Normal) Range: 1.5-4.5 Albumin, Serum 4.3 g/dL (Normal) Range: 3.6-4.8 Protein, Total, Serum 6.5 g/dL (Normal) Range: 6.0-8.5 Calcium, Serum 9.0 mg/dL (Normal) Range: 8.6-10.2 Carbon Dioxide, Total 23 mmol/L (Normal) Range: 18-29 Chloride, Serum 104 mmol/L (Normal) Range: 97-108 Potassium, Serum 4.9 mmol/L (Normal) Range: 3.5-5.2 Sodium, Serum 142 mmol/L (Normal) Range: 134-144 BUN/Creatinine Ratio 19 (Normal) Range: 10-22 eGFR If Africn Am 83 mL/min/1.73 (Normal) eGFR If NonAfricn Am 72 mL/min/1.73 (Normal) Creatinine, Serum 1.05 mg/dL (Normal) Range: 0.76-1.27 BUN 20 mg/dL (Normal) Range: 8-27 Glucose, Serum 101 mg/dL (Abnormal) Range: 65-99 [id number] Serum Creatinine AND GFR Comments: [facility] [id number] [place], [place], [id number] EST GFR - AA 97 mL/min (Normal) Comments: GFR Calc EST GFR 80 mL/min (Normal) Comments: Non- GFR Calc CREAT,SERUM 0.98 mg/dL (Normal) Range: 0.70-1.30 Comments: The validity of the calculated GFR AND GFRAA in patients over70 years has not been determined. Clinical correlation isessential. :03 METABOLIC PANEL, Comments: PATIENT WAS FASTINGPERFORMED BY: [id number] [id number] Information: [id number] COMPREHENSIVE ([id number]) ALT (SGPT) 22 [iU]/L (Normal) Range: 0-44 AST (SGOT) 18 [iU]/L (Normal) Range: 0-40 Alkaline Phosphatase, S 99 [iU]/L (Normal) Range: 39-117 Bilirubin, Total 1.3 mg/dL (Abnormal) Range: 0.0-1.2 A/G Ratio 1.6 (Normal) Range: 1.1-2.5 Globulin, Total 2.5 g/dL (Normal) Range: 1.5-4.5 Albumin, Serum 4.1 g/dL (Normal) Range: 3.6-4.8 Protein, Total, Serum 6.6 g/dL (Normal) Range: 6.0-8.5 Calcium, Serum 9.0 mg/dL (Normal) Range: 8.6-10.2 Carbon Dioxide, Total 23 mmol/L (Normal) Range: 18-29 Chloride, Serum 102 mmol/L (Normal) Range: 97-108 Potassium, Serum 4.4 mmol/L (Normal) Range: 3.5-5.2 Sodium, Serum 141 mmol/L (Normal) Range: 134-144 BUN/Creatinine Ratio 21 (Normal) Range: 10-22 eGFR If Africn Am 107 mL/min/1.73 (Normal) eGFR If NonAfricn Am 93 mL/min/1.73 (Normal) Creatinine, Serum 0.78 mg/dL (Normal) Range: 0.76-1.27 BUN 16 mg/dL (Normal) Range: 8-27 Glucose, Serum 92 mg/dL (Normal) Range: 65-99 07-Dec-20159:03 PSA (PROSTATE SPECIFIC Comments: PATIENT WAS FASTINGPERFORMED BY: [facility] [id number] ANTIGEN) (V76.44) Prostate Specific Ag, 4.5 ng/mL (Abnormal) Range: 0.0-4.0 Serum Comments: [employer] ECLIA methodology. .According to the [place] [employer], Serum PSA shoulddecrease and remain at undetectable levels after radicalprostatectomy. The AUA defines biochemical recurrence as an initialPSA value 0.2 ng/mL or greater followed by a subsequent confirmatoryPSA value 0.2 ng/mL or greater.Values obtained with d ifferent assay methods or kits cannot be usedinterchangeably. Results cannot be interpreted as absolute evidenceof the presence or absence of malignant disease. 54-Roo-158546:38 CBC-Complete Blood Cnt No Diff Comments: [facility] [address] [place], [address] MPV 10.0 fL (Normal) Range: 6.2-12.0 PLT 227 K/mm3 (Normal) Range: 150-450 RDW SD 46.6 fL (Abnormal) Range: 35.1-43.9 RDW CV 13.7 % (Normal) Range: 11.6-14.6 MCHC 33.2 {g/gl} (Normal) Range: 32-36 MCH 30.9 pg (Normal) Range: 27.0-32.0 MCV 93.2 fL (Normal) Range: 80-94 HCT 41.0 % (Normal) Range: 40-54 HGB 13.6 g/dL (Normal) Range: 13.0-16.5 RBC 4.40 {M/mm3} (Abnormal) Range: 4.6-6.2 WBC 5.9 K/mm3 (Normal) Range: 4.4-11.0 45-Qob-377261:38 Comprehensive Metabolic Profil Comments: [facility] [address] [place], [place], [id number] GAP 7 (Normal) Range: 5-15 CO2 27.0 mmol/L (Normal) Range: 21.0-32.0 CL 104 mmol/L (Normal) Range: 98-107 K 4.3 mmol/L (Normal) Range: 3.5-5.1 NA 138 mmol/L (Normal) Range: 136-145 T BILI 1.20 mg/dL (Abnormal) Range: 0.20-1.00 ALT 27 U/L (Normal) Range: 12-78 ALK P 126 U/L (Normal) Range: 50-136 AST 15 U/L (Normal) Range: 15-37 CA 9.1 mg/dL (Normal) Range: 8.5-10.1 A/G 0.9 {RATIO} (Normal) Range: 0.9-2.4 GLOB 4.1 g/dL (Abnormal) Range: 2.3-3.5 ALB 3.7 g/dL (Normal) Range: 3.4-5.0 T PROT 7.8 g/dL (Normal) Range: 6.4-8.2 BUN/CRE 14.3 {RATIO} (Normal) Range: 10-20 EST GFR - AA 98 mL/min (Normal) Comments: GFR Calc EST GFR 81 mL/min (Normal) Comments: Non- GFR Calc CREAT,SERUM 0.98 mg/dL (Normal) Range: 0.70-1.30 Comments: The validity of the calculated GFR AND GFRAA in patients over70 years has not been determined. Clinical correlation isessential. BUN 14 mg/dL (Normal) Range: 7-18 GLU 95 mg/dL (Normal) Range: 70-110 20-Nxn-552821:38 Partial Thromboplast Time Comments: [place] [address] [place], [id number] PTT 34.2 s (Normal) Range: 24.1-36.2 90-Qcj-196225:38 Prothrombin Time w/INR Comments: [address] [place], [id number] INR 1.1 (Normal) PROTIME 14.0 s (Normal) Range: 11.7-14.9 43-Bze-296987:47 CBC-Complete Blood Cnt No Diff Comments: [place] [address] [place], [id number] MPV 10.4 fL (Normal) Range: 6.2-12.0 PLT 213 K/mm3 (Normal) Range: 150-450 RDW SD 45.1 fL (Abnormal) Range: 35.1-43.9 RDW CV 13.6 % (Normal) Range: 11.6-14.6 MCHC 33.6 {g/gl} (Normal) Range: 32-36 MCH 31.5 pg (Normal) Range: 27.0-32.0 MCV 93.7 fL (Normal) Range: 80-94 HCT 40.2 % (Normal) Range: 40-54 HGB 13.5 g/dL (Normal) Range: 13.0-16.5 RBC 4.29 {M/mm3} (Abnormal) Range: 4.6-6.2 WBC 5.4 K/mm3 (Normal) Range: 4.4-11.0 :47 Comprehensive Metabolic Profil Comments: [address] [place], [id number] GAP 7 (Normal) Range: 5-15 CO2 28.0 mmol/L (Normal) Range: 21.0-32.0 CL 103 mmol/L (Normal) Range: 98-107 K 3.9 mmol/L (Normal) Range: 3.5-5.1 NA 138 mmol/L (Normal) Range: 136-145 T BILI 0.70 mg/dL (Normal) Range: 0.20-1.00 ALT 27 U/L (Normal) Range: 12-78 ALK P 115 U/L (Normal) Range: 50-136 AST 14 U/L (Abnormal) Range: 15-37 CA 9.1 mg/dL (Normal) Range: 8.5-10.1 A/G 1.0 {RATIO} (Normal) Range: 0.9-2.4 GLOB 3.9 g/dL (Abnormal) Range: 2.3-3.5 ALB 3.8 g/dL (Normal) Range: 3.4-5.0 T PROT 7.7 g/dL (Normal) Range: 6.4-8.2 BUN/CRE 14.9 {RATIO} (Normal) Range: 10-20 EST GFR - AA 103 mL/min (Normal) EST GFR 85 mL/min (Normal) CREAT,SERUM 0.94 mg/dL (Normal) Range: 0.70-1.30 Comments: The validity of the calculated GFR AND GFRAA in patients over70 years has not been determined. Clinical correlation isessential. BUN 14 mg/dL (Normal) Range: 7-18 GLU 86 mg/dL (Normal) Range: 70-110 04-Pxm-945733:47 Partial Thromboplast Time Comments: [facility] [address] [place], [address] PTT 35.1 s (Normal) Range: 24.1-36.2 30-Oeg-794243:47 Prothrombin Time w/INR Comments: [facility] [address] [place], [place], [id number] INR 1.0 (Normal) PROTIME 13.1 s (Normal) Range: 11.7-14.9 :23 CBC W/Diff, Automated Comments: Test performed at:[facility] [address] [place], [place] [address] Absolute Lymph 1.72 {X10_3/ul} (Normal) Range: 0.83-4.51 Absolute Neut 2.8 {X10_3/uL} (Normal) Range: 2.0-7.7 IM GRAN % 0.200 % (Normal) Range: 0.0-0.9 Comments: IG% - Immature Granulocytes (promyelocytes, myelocytes andmetamyelocytes) > 1% indicates that a LEFT SHIFT is Present. BASO% 0.7 % (Normal) Range: 0-1 EO% 5.0 % (Normal) Range: 0-5 MONO% 9.5 % (Normal) Range: 0-10 LY% 32.0 % (Normal) Range: 19-41 NEUT% 52.6 % (Normal) Range: 47-70 MPV 10.0 fL (Normal) Range: 6.2-12.0 PLT 244 K/mm3 (Normal) Range: 150-450 RDW SD 46.5 fL (Abnormal) Range: 35.1-43.9 RDW CV 13.7 % (Normal) Range: 11.6-14.6 MCHC 32.8 {g/gl} (Normal) Range: 32-36 MCH 30.6 pg (Normal) Range: 27.0-32.0 MCV 93.5 fL (Normal) Range: 80-94 HCT 40.0 % (Normal) Range: 40-54 HGB 13.1 g/dL (Normal) Range: 13.0-16.5 RBC 4.28 {M/mm3} (Abnormal) Range: 4.6-6.2 WBC 5.4 K/mm3 (Normal) Range: 4.4-11.0 07-Apr-20158:23 Comprehensive Metabolic Profil Comments: Test performed at:[facility] [address] [place], [place] [address] GAP 10 (Normal) Range: 5-15 CO2 26.0 mmol/L (Normal) Range: 21.0-32.0 CL 104 mmol/L (Normal) Range: 98-107 K 3.9 mmol/L (Normal) Range: 3.5-5.1 NA 140 mmol/L (Normal) Range: 136-145 T BILI 1.20 mg/dL (Abnormal) Range: 0.20-1.00 ALT 30 U/L (Normal) Range: 12-78 ALK P 117 U/L (Normal) Range: 50-136 AST 21 U/L (Normal) Range: 15-37 CA 9.2 mg/dL (Normal) Range: 8.5-10.1 A/G 1.0 {RATIO} (Normal) Range: 0.9-2.4 GLOB 3.7 g/dL (Abnormal) Range: 2.3-3.5 ALB 3.7 g/dL (Normal) Range: 3.4-5.0 T PROT 7.4 g/dL (Normal) Range: 6.4-8.2 BUN/CRE 13.2 {RATIO} (Normal) Range: 10-20 EST GFR - AA 107 mL/min (Normal) EST GFR 88 mL/min (Normal) CREAT,SERUM 0.91 mg/dL (Normal) Range: 0.70-1.30 Comments: Please note revised CREATININE reference range xzybezkod59/22/2015. BUN 12 mg/dL (Normal) Range: 7-18 GLU 132 mg/dL (Abnormal) Range: 70-110 Comments: Fasting Glucose result greater than or equal to 126 mg/dLsuggests DIABETES MELLITUS per A.D.A. criteria. 07-Apr-20158:23 Prothrombin Time w/INR Comments: Test performed at:[facility] [address] [place] [address] INR 1.0 (Normal) PROTIME 13.7 s (Normal) Range: 11.7-14.9 2-Xix-331039:25 AFP, Tumor Marker Comments: Is Patient ? NTest performed at:[facility] [address] [place] [address] AFP TUMOR 2253 578.5 ng/mL (Abnormal) Range: 0.0-8.3 Comments: Melodie ECLIA methodologyPerformed at: - [employer] [id number] Director: Toy Walls MD, Phone: [phone] at: [facility] [address] [id number] Director: Lalo Murphy PhD, Phone: [phone] 7-Byp-615161:25 Hepatitis B C Genotype Comments: Is Patient ? NTest performed at:[facility] [address] [place] [address] COMMENT Comment (Normal) Comments: This test was developed and its performance characteristicsdetermined by [facility] It has not been cleared or approvedby the U.S. Food and Drug Administration.The FDA has determined that such clearance or approval isnot necessary. This test is used for clinical purposes. Itshould not be regarded as investigational or for research.Patient's specimen has been determined to have INSUFFICIENTHepatitis C Virus RNA to obtain Genotyping results. TheGenotype assay should only be used for known HCV Positivepatients with HCV RNA levels above 600 IU/mL. HEP C GENOTYPE Test not performed (Normal) 9-Xlx-277580:25 Hepatitis C,RNA PCR Viral Load Comments: Is Patient ? NTest performed at:[facility] [address] [place], [place] [address] TEST INFO: Comment (Normal) Comments: The quantitative range of the assay is 15 IU/mL to 100million IU/mL using TORSTEN(R) TaqMan(R) HCV test, v 2.0. Thelimit of detection (LOD) and lower limit of quantification(LLOQ) for this assay is 15 IU/ mL. Results less than thequantitative range of the assay will be reported as HCVRNA detected, less than 15 IU/mL. HCV log 10 Test not performed (Normal) HCV QT PCR HCV Not Detected {IU/mL} (Normal) :14 LIPID PANEL (22339) Comments: PATIENT WAS FASTINGPERFORMED BY: [facility] for RehabilitationOaayyq2555 [facility] [id number]; non-emergent till apt LDL/HDL Ratio 6.1 {ratio_units} (Abnormal) Range: 0.0-3.6 Comments: LDL/HDL Ratio Men Women 1/2 Avg.Risk 1.0 1.5 Av g.Risk 3.6 3.2 2X Avg.Risk 6.2 5.0 3X Avg.Risk 8.0 6.1 LDL Cholesterol Calc 166 mg/dL (Abnormal) Range: 0-99 VLDL Cholesterol Elvin 65 mg/dL (Abnormal) Range: 5-40 HDL Cholesterol 27 mg/dL (Abnormal) Comments: According to ATP-III Guidelines, HDL-C >59 mg/dL is considered anegative risk factor for CHD. Triglycerides 326 mg/dL (Abnormal) Range: 0-149 Cholesterol, Total 258 mg/dL (Abnormal) Range: 100-199 06-Oct-20148:14 METABOLIC PANEL, Comments: PATIENT WAS FASTINGPERFORMED BY: [facility]rapeuticsK[facility] for RehabilitationJfpves4843 [facility] [id number] Information: [id number] COMPREHENSIVE ([id number]) ALT (SGPT) 27 [iU]/L (Normal) Range: 0-44 AST (SGOT) 25 [iU]/L (Normal) Range: 0-40 Alkaline Phosphatase, S 87 [iU]/L (Normal) Range: 39-117 Bilirubin, Total 1.7 mg/dL (Abnormal) Range: 0.0-1.2 A/G Ratio 1.4 (Normal) Range: 1.1-2.5 Globulin, Total 2.9 g/dL (Normal) Range: 1.5-4.5 Albumin, Serum 4.2 g/dL (Normal) Range: 3.6-4.8 Protein, Total, Serum 7.1 g/dL (Normal) Range: 6.0-8.5 Calcium, Serum 9.5 mg/dL (Normal) Range: 8.6-10.2 Carbon Dioxide, Total 24 mmol/L (Normal) Range: 18-29 Chloride, Serum 99 mmol/L (Normal) Range: 97-108 Potassium, Serum 4.6 mmol/L (Normal) Range: 3.5-5.2 Sodium, Serum 138 mmol/L (Normal) Range: 134-144 BUN/Creatinine Ratio 13 (Normal) Range: 10-22 eGFR If Africn Am 98 mL/min/1.73 (Normal) eGFR If NonAfricn Am 85 mL/min/1.73 (Normal) Creatinine, Serum 0.93 mg/dL (Normal) Range: 0.76-1.27 BUN 12 mg/dL (Normal) Range: 8-27 Glucose, Serum 98 mg/dL (Normal) Range: 65-99 35-Eam-46990:04 EBV Panel (92993) Comments: PATIENT NOT FASTINGPERFORMED BY: [facility]6370 [facility] [id number] Information: [id number] Interpretation: SPRCS (Normal) Comments: EBV Interpretation Chart . Interpretation EBV-IgM VCA-IgG EBNA-IgG EA(D)-IgG . EBV Seronegative - - - - Early Phase + - - - Acute Primary + + - +or- Infection Convalescence/Past - + + +or- Infection Reactivated +or- + + + Infection + Antibody Present - Antibody Absent EBV Nuclear Antigen Ab, IgG 31.9 U/mL (Abnormal) Range: 0.0-17.9 Comments: Negative <18.0 Equivocal 18.0 - 21.9 Positive >21.9 EBV Ab VCA, IgG 119.0 U/mL (Abnormal) Range: 0.0-17.9 Comments: Negative <18.0 Equivocal 18.0 - 21.9 Positive >21.9 EBV Early Antigen Ab, IgG 101.0 U/mL (Abnormal) Range: 0.0-8.9 Comments: Hepatitis A, Hepatitis C and HIV antibodies may cross-reactwith this assay. Negative < 9.0 Equivoc al 9.0 - 10.9 Positive >10.9 EBV Ab VCA, IgM <36.0 U/mL (Normal) Range: 0.0-35.9 Comments: Negative <36.0 Equivocal 36.0 - 43.9 Positive >43.9 :06 Microscopic Examination Comments: PATIENT WAS FASTINGPERFORMED BY: [facility]6370 [facility] [id number] Bacteria None seen (Normal) Mucus Threads Present (Normal) Epithelial Cells (non renal) None seen {/hpf} (Normal) Range: 0 - 10 RBC 0-2 {/hpf} (Normal) Range: 0 - 2 WBC 0-5 {/hpf} (Normal) Range: 0 - 5 :06 PSA (PROSTATE SPECIFIC Comments: PATIENT WAS FASTINGPERFORMED BY: [facility]6370 [facility] [id number] ANTIGEN) (V76.44) Prostate Specific Ag, 3.8 ng/mL (Normal) Range: 0.0-4.0 Serum Comments: PronotaIA methodology. .According to the [place] [employer], Serum PSA shoulddecrease and remain at undetectable levels after radicalprostatectomy. The AUA defines biochemical recurrence as an initialPSA value 0.2 ng/mL or greater followed by a subsequent confirmatoryPSA value 0.2 ng/mL or greater.Values obtained with d ifferent assay methods or kits cannot be usedinterchangeably. Results cannot be interpreted as absolute evidenceof the presence or absence of malignant disease. :06 URINALYSIS, W/ MICRO ([id number]) Comments: PATIENT WAS FASTINGPERFORMED BY: [facility] Institute for RehabilitationIlxowa0079 [facility] [id number] Microscopic Examination See below: (Normal) Comments: Microscopic was indicated and was performed. Microscopic Examination MICRON (Normal) Comments: Microscopic follows if indicated. Nitrite, Urine Negative (Normal) Urobilinogen,Semi-Qn 0.2 mg/dL (Normal) Range: 0.0-1.9 Bilirubin Negative (Normal) Occult Blood Negative (Normal) Ketones Negative (Normal) Glucose Negative (Normal) Protein Negative (Normal) WBC Esterase Negative (Normal) Appearance Clear (Normal) Urine-Color Yellow (Normal) pH 6.5 (Normal) Range: 5.0-7.5 Specific [place] 1.019 (Normal) Range: 1.005-1.030 :06 CBC WITH MANUAL DIFF Comments: PATIENT WAS FASTINGPERFORMED BY: [facility]FlowK[facility] Institute for RehabilitationFwvbtr4227 [facility] [id number] Information: [id number] (91916) Immature Grans (Abs) 0.0 {x10E3/uL} (Normal) Range: 0.0-0.1 Immature Granulocytes 0 % (Normal) Range: 0-2 Comments: The percent (%) differential reference intervals for normal cell typeswill be removed from patient reports beginning April 14, 2014,consistent with CAP standards. Baso (Absolute) 0.0 {x10E3/uL} (Normal) Range: 0.0-0.2 Eos (Absolute) 0.3 {x10E3/uL} (Normal) Range: 0.0-0.4 Monocytes(Absolute) 0.5 {x10E3/uL} (Normal) Range: 0.1-0.9 Lymphs (Absolute) 2.9 {x10E3/uL} (Normal) Range: 0.7-3.1 Neutrophils (Absolute) 2.2 {x10E3/uL} (Normal) Range: 1.4-7.0 Basos 1 % (Normal) Range: 0-3 Comments: The percent (%) differential reference intervals for normal cell typeswill be removed from patient reports beginning April 14, 2014,consistent with CAP standards. Eos 5 % (Normal) Range: 0-5 Comments: The percent (%) differential reference intervals for normal cell typeswill be removed from patient reports beginning April 14, 2014,consistent with CAP standards. Monocytes 8 % (Normal) Range: 4-12 Comments: The percent (%) differential reference intervals for normal cell typeswill be removed from patient reports beginning April 14, 2014,consistent with CAP standards. Lymphs 50 % (Abnormal) Range: 14-46 Comments: The percent (%) differential reference intervals for normal cell typeswill be removed from patient reports beginning April 14, 2014,consistent with CAP standards. Neutrophils 36 % (Abnormal) Range: 40-74 Comments: The percent (%) differential reference intervals for normal cell typeswill be removed from patient reports beginning April 14, 2014,consistent with CAP standards. Platelets 199 {x10E3/uL} (Normal) Range: 150-379 RDW 14.1 % (Normal) Range: 12.3-15.4 MCHC 33.5 g/dL (Normal) Range: 31.5-35.7 MCH 31.0 pg (Normal) Range: 26.6-33.0 Hematocrit 39.7 % (Normal) Range: 37.5-51.0 MCV 93 fL (Normal) Range: 79-97 Hemoglobin 13.3 g/dL (Normal) Range: 12.6-17.7 RBC 4.29 {x10E6/uL} (Normal) Range: 4.14-5.80 WBC 5.9 {x10E3/uL} (Normal) Range: 3.4-10.8 07-Apr-20148:06 METABOLIC PANEL, COMPREHENSIVE Comments: PATIENT WAS FASTINGPERFORMED BY: [facility]CoKessler Institute for RehabilitationNtlrqv9225 [facility] [id number] ([id number]) ALT (SGPT) 21 [iU]/L (Normal) Range: 0-44 AST (SGOT) 22 [iU]/L (Normal) Range: 0-40 Alkaline Phosphatase, S 78 [iU]/L (Normal) Range: 39-117 Bilirubin, Total 1.0 mg/dL (Normal) Range: 0.0-1.2 A/G Ratio 1.9 (Normal) Range: 1.1-2.5 Globulin, Total 2.1 g/dL (Normal) Range: 1.5-4.5 Albumin, Serum 4.0 g/dL (Normal) Range: 3.6-4.8 Protein, Total, Serum 6.1 g/dL (Normal) Range: 6.0-8.5 Calcium, Serum 9.0 mg/dL (Normal) Range: 8.6-10.2 Carbon Dioxide, Total 23 mmol/L (Normal) Range: 18-29 Chloride, Serum 100 mmol/L (Normal) Range: 97-108 Potassium, Serum 4.7 mmol/L (Normal) Range: 3.5-5.2 Sodium, Serum 139 mmol/L (Normal) Range: 134-144 BUN/Creatinine Ratio 20 (Normal) Range: 10-22 eGFR If Africn Am 103 mL/min/1.73 (Normal) eGFR If NonAfricn Am 89 mL/min/1.73 (Normal) Creatinine, Serum 0.87 mg/dL (Normal) Range: 0.76-1.27 BUN 17 mg/dL (Normal) Range: 8-27 Glucose, Serum 94 mg/dL (Normal) Range: 65-99 07-Apr-20148:06 LIPID PANEL ([id number]) Comments: PATIENT WAS FASTINGPERFORMED BY: [employer] [facility] [id number] LDL/HDL Ratio 4.4 {ratio_units} (Abnormal) Range: 0.0-3.6 LDL Cholesterol Calc 122 mg/dL (Abnormal) Range: 0-99 VLDL Cholesterol Elvin 43 mg/dL (Abnormal) Range: 5-40 HDL Cholesterol 28 mg/dL (Abnormal) Comments: According to ATP-III Guidelines, HDL-C >59 mg/dL is considered anegative risk factor for CHD. Triglycerides 216 mg/dL (Abnormal) Range: 0-149 Cholesterol, Total 193 mg/dL (Normal) Range: 100-199 9-Dke-990275:41 VARICELLA-ZOSTER ANTBODY Comments: PATIENT NOT FASTINGPERFORMED BY: [facility]6370 [facility] [id number] Information: [id number] (86725) Varicella Zoster IgG 2.01 {index} (Normal) Comments: Nonimmune <0.91 Equivocal 0.91 - 1.09 Immune >1.09 :37 Microscopic Examination Comments: PATIENT WAS FASTINGPERFORMED BY: [employer] Oqhwsv7457 [facility] [id number] Bacteria None seen (Normal) Mucus Threads Present (Normal) Epithelial Cells (non renal) 0-10 {/hpf} (Normal) Range: 0 - 10 RBC 0-3 {/hpf} (Normal) Range: 0 - 3 WBC 0-5 {/hpf} (Normal) Range: 0 - 5 :37 URINALYSIS, W/ MICRO ([id number]) Comments: PATIENT WAS FASTINGPERFORMED BY: [employer] Jntfel9420 [facility] [id number] Microscopic Examination See below: (Normal) Microscopic Examination MICRON (Normal) Comments: Microscopic follows if indicated. Nitrite, Urine Negative (Normal) Urobilinogen,Semi-Qn 1.0 mg/dL (Normal) Range: 0.0-1.9 Bilirubin Negative (Normal) Occult Blood Negative (Normal) Ketones Negative (Normal) Glucose Negative (Normal) Protein Negative (Normal) WBC Esterase Negative (Normal) Appearance Clear (Normal) Urine-Color Yellow (Normal) pH 6.0 (Normal) Range: 5.0-7.5 Specific [place] 1.021 (Normal) Range: 1.005-1.030 :37 CBC WITH MANUAL DIFF Comments: PATIENT WAS FASTINGPERFORMED BY: [employer] Wuqodr9851 [facility] [id number] Information: [id number] ([id number]) Immature Grans (Abs) 0.0 {x10E3/uL} (Normal) Range: 0.0-0.1 Immature Granulocytes 0 % (Normal) Range: 0-2 Baso (Absolute) 0.0 {x10E3/uL} (Normal) Range: 0.0-0.2 Eos (Absolute) 0.3 {x10E3/uL} (Normal) Range: 0.0-0.4 Monocytes(Absolute) 0.6 {x10E3/uL} (Normal) Range: 0.1-1.0 Lymphs (Absolute) 2.9 {x10E3/uL} (Normal) Range: 0.7-4.5 Neutrophils (Absolute) 2.7 {x10E3/uL} (Normal) Range: 1.8-7.8 Basos 1 % (Normal) Range: 0-3 Eos 4 % (Normal) Range: 0-7 Monocytes 10 % (Normal) Range: 4-13 Lymphs 44 % (Normal) Range: 14-46 Neutrophils 41 % (Normal) Range: 40-74 Platelets 196 {x10E3/uL} (Normal) Range: 140-415 Comments: Effective April 08, 2013, the reference intervals for CBC:WBC, Differential Parameters (Neutrophil %, Neutrophil Absolute, Lymphocyte %, Lymphocyte Absolute, Monocyte %, Monocyte Absolute, Eos inophil %, Eosinophil Absolute), and Platelet Counts will be adjusted to maintain consistency with the distribution of these values in the reference population. RDW 13.6 % (Normal) Range: 12.3-15.4 MCHC 33.6 g/dL (Normal) Range: 31.5-35.7 MCH 30.9 pg (Normal) Range: 26.6-33.0 MCV 92 fL (Normal) Range: 79-97 Hematocrit 40.8 % (Normal) Range: 37.5-51.0 Hemoglobin 13.7 g/dL (Normal) Range: 12.6-17.7 RBC 4.44 {x10E6/uL} (Normal) Range: 4.14-5.80 WBC 6.5 {x10E3/uL} (Normal) Range: 4.0-10.5 Comments: Effective April 08, 2013, the reference intervals for CBC:WBC, Differential Parameters (Neutrophil %, Neutrophil Absolute, Lymphocyte %, Lymphocyte Absolute, Monocyte %, Monocyte Absolute, Eos inophil %, Eosinophil Absolute), and Platelet Counts will be adjusted to maintain consistency with the distribution of these values in the reference population. 02-Apr-20138:37 PSA (PROSTATE SPECIFIC Comments: PATIENT WAS FASTINGPERFORMED BY: [facility]6370 [facility] [id number] ANTIGEN) (V76.44) Prostate Specific Ag, 3.6 ng/mL (Normal) Range: 0.0-4.0 Serum Comments: Melodie ECLIA methodology. .According to the [place] [employer], Serum PSA shoulddecrease and remain at undetectable levels after radicalprostatectomy. The AUA defines biochemical recurrence as an initialPSA value 0.2 ng/mL or greater followed by a subsequent confirmatoryPSA value 0.2 ng/mL or greater.Values obtained with d ifferent assay methods or kits cannot be usedinterchangeably. Results cannot be interpreted as absolute evidenceof the presence or absence of malignant disease. :37 LIPID PANEL ([id number]) Comments: PATIENT WAS FASTINGPERFORMED BY: [facility]6370 [facility] [id number] LDL/HDL Ratio 4.8 {ratio_units} (Abnormal) Range: 0.0-3.6 LDL Cholesterol Calc 133 mg/dL (Abnormal) Range: 0-99 HDL Cholesterol 28 mg/dL (Abnormal) Comments: According to ATP-III Guidelines, HDL-C >59 mg/dL is considered anegative risk factor for CHD. VLDL Cholesterol Elvin 37 mg/dL (Normal) Range: 5-40 Triglycerides 186 mg/dL (Abnormal) Range: 0-149 Cholesterol, Total 198 mg/dL (Normal) Range: 100-199 :37 METABOLIC PANEL, COMPREHENSIVE Comments: PATIENT WAS FASTINGPERFORMED BY: [facility]6370 [facility] [id number] ([id number]) ALT (SGPT) 19 [iU]/L (Normal) Range: 0-44 AST (SGOT) 20 [iU]/L (Normal) Range: 0-40 Alkaline Phosphatase, S 79 [iU]/L (Normal) Range: 44-103 Bilirubin, Total 1.7 mg/dL (Abnormal) Range: 0.0-1.2 A/G Ratio 1.7 (Normal) Range: 1.1-2.5 Globulin, Total 2.6 g/dL (Normal) Range: 1.5-4.5 Albumin, Serum 4.4 g/dL (Normal) Range: 3.6-4.8 Protein, Total, Serum 7.0 g/dL (Normal) Range: 6.0-8.5 Calcium, Serum 9.4 mg/dL (Normal) Range: 8.6-10.2 Carbon Dioxide, Total 23 mmol/L (Normal) Range: 19-28 Chloride, Serum 102 mmol/L (Normal) Range: 97-108 Potassium, Serum 5.2 mmol/L (Normal) Range: 3.5-5.2 Sodium, Serum 138 mmol/L (Normal) Range: 134-144 BUN/Creatinine Ratio 23 (Abnormal) Range: 10-22 eGFR If Africn Am 104 mL/min/1.73 (Normal) eGFR If NonAfricn Am 90 mL/min/1.73 (Normal) Creatinine, Serum 0.87 mg/dL (Normal) Range: 0.76-1.27 BUN 20 mg/dL (Normal) Range: 8-27 Glucose, Serum 94 mg/dL (Normal) Range: 65-99 88-Gzh-252654:[id number] PPD (44311) Comments: PT RECEIVED THIS AT WORK SKIN TEST INTRADERMAL TB negatvie (Normal) Comments: pt received this at work :33 LIPID PANEL (38203) Comments: PATIENT WAS FASTINGPERFORMED BY: [facility] [id number] LDL/HDL Ratio 3.8 {ratio_units} (Abnormal) Range: 0.0-3.6 LDL Cholesterol Calc 122 mg/dL (Abnormal) Range: 0-99 VLDL Cholesterol Elvin 33 mg/dL (Normal) Range: 5-40 HDL Cholesterol 32 mg/dL (Abnormal) Comments: According to ATP-III Guidelines, HDL-C >59 mg/dL is considered anegative risk factor for CHD. Triglycerides 167 mg/dL (Abnormal) Range: 0-149 Cholesterol, Total 187 mg/dL (Normal) Range: 100-199 :33 METABOLIC PANEL, Comments: PATIENT WAS FASTINGPERFORMED BY: [employer] [facility] [id number] Information: [id number] COMPREHENSIVE ([id number]) ALT (SGPT) 21 [iU]/L (Normal) Range: 0-55 AST (SGOT) 17 [iU]/L (Normal) Range: 0-40 Alkaline Phosphatase, S 70 [iU]/L (Normal) Range: 25-160 Bilirubin, Total 1.9 mg/dL (Abnormal) Range: 0.0-1.2 A/G Ratio 1.8 (Normal) Range: 1.1-2.5 Globulin, Total 2.4 g/dL (Normal) Range: 1.5-4.5 Albumin, Serum 4.4 g/dL (Normal) Range: 3.6-4.8 Protein, Total, Serum 6.8 g/dL (Normal) Range: 6.0-8.5 Calcium, Serum 9.7 mg/dL (Normal) Range: 8.6-10.2 Carbon Dioxide, Total 25 mmol/L (Normal) Range: 20-32 Chloride, Serum 104 mmol/L (Normal) Range: 97-108 Potassium, Serum 4.7 mmol/L (Normal) Range: 3.5-5.2 Sodium, Serum 138 mmol/L (Normal) Range: 134-144 BUN/Creatinine Ratio 25 (Abnormal) Range: 10-22 eGFR If Africn Am 105 mL/min/1.73 (Normal) Comments: Note: A persistent eGFR <60 mL/min/1.73 m2 (3 months or more) mayindicate chronic kidney disease. An eGFR >59 mL/min/1.73 m2 with anelevated urine protein also may indicate chronic kidney disease.Calculated using CKD-EPI formula. eGFR If NonAfricn Am 91 mL/min/1.73 (Normal) Creatinine, Serum 0.88 mg/dL (Normal) Range: 0.76-1.27 BUN 22 mg/dL (Normal) Range: 8-27 Glucose, Serum 97 mg/dL (Normal) Range: 65-99 :35 COMP METABOLIC CL 102 mmol/L (Normal) Range: 98-107 CO2 27.0 mmol/L (Normal) Range: 21.0-32.0 GAP 13 (Normal) Range: 5-15 K 4.1 mmol/L (Normal) Range: 3.5-5.1 NA 142 mmol/L (Normal) Range: 136-145 ALK P 75 U/L (Normal) Range: 50-136 ALT 31 U/L (Normal) Range: 12-78 AST 14 U/L (Abnormal) Range: 15-37 T BILI 1.30 mg/dL (Abnormal) Range: 0.00-1.00 A/G 1.2 {RATIO} (Normal) Range: 0.9-2.4 CA 9.1 mg/dL (Normal) Range: 8.5-10.1 ALB 3.9 g/dL (Normal) Range: 3.4-5.0 BUN/CRE 17.8 {RATIO} (Normal) Range: 10-20 GLOB 3.3 g/dL (Normal) Range: 2.7-4.2 T PROT 7.2 g/dL (Normal) Range: 6.4-8.2 BUN 16 mg/dL (Normal) Range: 7-18 CREAT,SERUM 0.9 mg/dL (Normal) Range: 0.8-1.3 EST GFR 91 mL/min (Normal) EST GFR - AA 110 mL/min (Normal) GLU 87 mg/dL (Normal) Range: 70-110 :35 LIPID LDL 99 mg/dL (Normal) Range: 0-130 VLDL 68 mg/dL (Abnormal) Range: 5-40 HDL 26 mg/dL (Abnormal) Comments: Reference RangeHDL <40 mg/dL Low HDL CholesterolHDL >or= 60 mg/dL High HDL Cholesterol TRIG 342 mg/dL (Abnormal) Comments: Serum Triglycerides Reference IntervalNormal <150 mg/dLBorderline high 150 - 199 mg/dLHigh 200 - 499 mg/ dLVery High > or = 500 mg/dL CHOL 193 mg/dL (Normal) Comments: <200 mg/dL Nljcgdxmg507-760 mg/dL Borderline>240 mg/dL High Risk :27 BMP BUN 18 mg/dL (Normal) Range: 7-18 BUN/CRE 18.0 {RATIO} (Normal) Range: 10-20 CA 9.2 mg/dL (Normal) Range: 8.5-10.1 CL 105 mmol/L (Normal) Range: 98-107 CO2 29.8 mmol/L (Abnormal) Range: 22.0-29.0 CREAT,SERUM 1.0 mg/dL (Normal) Range: 0.8-1.3 GAP 5 (Normal) Range: 5-15 GLU 94 mg/dL (Normal) Range: 70-110 K 4.0 mmol/L (Normal) Range: 3.5-5.1 NA 140 mmol/L (Normal) Range: 136-145 :27 LIVER ALB 3.8 g/dL (Normal) Range: 3.4-5.0 ALK P 76 U/L (Normal) Range: 50-136 ALT 42 [iU]/L (Normal) Range: 30-65 AST 16 U/L (Normal) Range: 15-37 D BILI 0.21 mg/dL (Normal) Range: 0.00-0.30 T BILI 1.64 mg/dL (Abnormal) Range: 0.00-1.00 T PROT 7.0 g/dL (Normal) Range: 6.4-8.2 :27 PFLIP CHOL 166 mg/dL (Normal) Comments: <200 mg/dL Desirable 200-240 mg/dL Borderline >240 mg/dL High Risk HDL 30 mg/dL (Abnormal) Comments: Reference Range HDL <40 mg/dL Low HDL Cholesterol HDL >or= 60 mg/dL High HDL Cholesterol LDL 109 mg/dL (Normal) Range: 0-130 TRIG 137 mg/dL (Normal) Comments: Serum Triglycerides Reference Interval Normal <150 mg/dL Borderline high 150 - 199 mg/dL High 200 - 499 mg/dL Very High > or = 500 mg/dL VLDL 27 mg/dL (Normal) Range: 5-40 :47 LIVER ALB 3.8 g/dL (Normal) Range: 3.4-5.0 ALK P 65 U/L (Normal) Range: 50-136 ALT 34 [iU]/L (Normal) Range: 30-65 AST 19 U/L (Normal) Range: 15-37 D BILI 0.14 mg/dL (Normal) Range: 0.00-0.30 T BILI 1.06 mg/dL (Abnormal) Range: 0.00-1.00 T PROT 7.0 g/dL (Normal) Range: 6.4-8.2 :47 PFLIP CHOL 188 mg/dL (Normal) Comments: <200 mg/dL Desirable 200-240 mg/dL Borderline >240 mg/dL High Risk HDL 27 mg/dL (Abnormal) Comments: Reference Range HDL <40 mg/dL Low HDL Cholesterol HDL >or= 60 mg/dL High HDL Cholesterol LDL 133 mg/dL (Abnormal) Range: 0-130 TRIG 142 mg/dL (Normal) Comments: Serum Triglycerides Reference Interval Normal <150 mg/dL Borderline high 150 - 199 mg/dL High 200 - 499 mg/dL Very High > or = 500 mg/dL VLDL 28 mg/dL (Normal) Range: 5-40 Plan of Care Name Dates Details Instructions Pleural effusion on right : Reviewed Diagnostic Tests Indication: Pleural effusion on right Pleural effusion on right : Follow up in 3.5 weeks Indication: Pleural effusion on right Pneumonia : Reviewed Diagnostic Tests Indication: Pneumonia Bilateral inguinal hernia without obstruction or gangrene : Reviewed Diagnostic Tests Indication: Bilateral inguinal hernia without obstruction or gangrene Bilateral inguinal hernia without obstruction or gangrene : Reviewed Pipeline Operator Letter Indication: Bilateral inguinal hernia without obstruction or gangrene Physical exam WITHOUT abnormal findings (Renamed from Encounter for routine adult health examination without abnormal findings) : fall reduction handout Indication: Physical exam WITHOUT abnormal findings (Renamed from Encounter for routine adult health examination without abnormal findings) Physical exam WITHOUT abnormal findings (Renamed from Encounter for routine adult health examination without abnormal findings) : elderly packet given Indication: Physical exam WITHOUT abnormal findings (Renamed from Encounter for routine adult health examination without abnormal findings) Physical exam WITHOUT abnormal findings (Renamed from Encounter for routine adult health examination without abnormal findings) : advance planning information Indication: Physical exam WITHOUT abnormal findings (Renamed from Encounter for routine adult health examination without abnormal findings) Encounter for screening for malignant neoplasm of colon (Renamed from Special screening for malignant neoplasms, colon) : *Colon Cancer Screening Indication: Encounter for screening for malignant neoplasm of colon (Renamed from Special screening for malignant neoplasms, colon) Non-smoker : Eprescribed prescriptions (G8553) Indication: Non-smoker Hypertensive 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 heart failure : Follow up in 6 months Indication: Hypertensive 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 heart failure Prostate cancer : Reviewed Lab Indication: Prostate cancer Prostate cancer : Reviewed Pipeline Operator Letter Indication: Prostate cancer Hypertensive 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 heart failure : Diet, Exercise, and Wt loss Indication: Hypertensive 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 heart failure Hypertensive 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 heart failure : HTN/CAD Red Flags Indication: Hypertensive 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 heart failure Mixed hyperlipidemia : Cholesterol mgmt Indication: Mixed hyperlipidemia Hypertensive 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 heart failure : Eprescribed prescriptions (G8553) Indication: Hypertensive 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 heart failure Mixed hyperlipidemia : Reviewed Lab Indication: Mixed hyperlipidemia Mixed hyperlipidemia : Follow up in 4 months Indication: Mixed hyperlipidemia Prostate cancer : Reviewed Pipeline Operator Letter Indication: Prostate cancer Hypertensive 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 heart failure : HTN/CAD Red Flags Indication: Hypertensive 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 heart failure Mixed hyperlipidemia : Cholesterol mgmt Indication: Mixed hyperlipidemia Mixed hyperlipidemia : Follow up in 6 months Indication: Mixed hyperlipidemia Prostate cancer : Reviewed Pipeline Operator Letter- urologist - dr Miller Indication: Prostate cancer Hypertensive 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 heart failure : HTN/CAD Red Flags Indication: Hypertensive 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 heart failure Mixed hyperlipidemia : Cholesterol mgmt Indication: Mixed hyperlipidemia Hepatocellular carcinoma : Reviewed Lab Indication: Hepatocellular carcinoma Encounter for screening for malignant neoplasm of prostate (Renamed from Screening for prostate cancer) : Reviewed Pipeline Operator Letter Indication: Encounter for screening for malignant neoplasm of prostate (Renamed from Screening for prostate cancer) Hypertensive 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 heart failure : Diet, Exercise, and Wt loss Indication: Hypertensive 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 heart failure Hypertensive 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 heart failure : HTN/CAD Red Flags Indication: Hypertensive 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 heart failure Annual Medicare Phyiscal WITHOUT abnormal findings (Renamed from Encounter for general adult medical examination without abnormal findings) : advance planning information Indication: Annual Medicare Phyiscal WITHOUT abnormal findings (Renamed from Encounter for general adult medical examination without abnormal findings) Annual Medicare Phyiscal WITHOUT abnormal findings (Renamed from Encounter for general adult medical examination without abnormal findings) : elderly packet given Indication: Annual Medicare Phyiscal WITHOUT abnormal findings (Renamed from Encounter for general adult medical examination without abnormal findings) Annual Medicare Phyiscal WITHOUT abnormal findings (Renamed from Encounter for general adult medical examination without abnormal findings) : fall reduction handout Indication: Annual Medicare Phyiscal WITHOUT abnormal findings (Renamed from Encounter for general adult medical examination without abnormal findings) Encounter for screening for malignant neoplasm of colon (Renamed from Special screening for malignant neoplasms, colon) : *Colon Cancer Screening Indication: Encounter for screening for malignant neoplasm of colon (Renamed from Special screening for malignant neoplasms, colon) Hypertensive 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 heart failure : Follow up in 6 months Indication: Hypertensive 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 heart failure Hypertensive 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 heart failure : HTN/CAD Red Flags Indication: Hypertensive 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 heart failure Vitamin D deficiency : Reviewed Lab Indication: Vitamin D deficiency Hypertensive 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 heart failure : Reviewed Lab Indication: Hypertensive 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 heart failure Prostate cancer : Reviewed Pipeline Operator Letter- Dr Miller Indication: Prostate cancer Mixed hyperlipidemia : Cholesterol mgmt Indication: Mixed hyperlipidemia Hepatocellular carcinoma : Reviewed Lab: nornmal alpha feta prot Indication: Hepatocellular carcinoma Hepatocellular carcinoma : Reviewed Pipeline Operator Letter Indication: Hepatocellular carcinoma Hepatocellular carcinoma : Reviewed Diagnostic Tests Indication: Hepatocellular carcinoma Prostate cancer : Reviewed Lab Indication: Prostate cancer Prostate cancer : Reviewed Pipeline Operator Letter Indication: Prostate cancer Prostate cancer : Reviewed Diagnostic Tests Indication: Prostate cancer Nonsmoker : Eprescribed prescriptions (G8553) Indication: Nonsmoker BMI 32.0-32.9,adult : Eprescribed prescriptions (G8553) Indication: BMI 32.0-32.9,adult Hypertensive 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 heart failure : Follow up in 3 months Indication: Hypertensive 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 heart failure Hypertensive 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 heart failure : Eprescribed prescriptions (G8553) Indication: Hypertensive 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 heart failure Stress reaction : Anxiety: stress Indication: Stress reaction Stress reaction : Eprescribed prescriptions (G8553) Indication: Stress reaction Mixed hyperlipidemia : Eprescribed prescriptions (G8553) Indication: Mixed hyperlipidemia Mixed hyperlipidemia : Health Maintenance: Controlling Cholesterol: blood Indication: Mixed hyperlipidemia Mixed hyperlipidemia : Eprescribed prescriptions (G8553) Indication: Mixed hyperlipidemia Need for prophylactic vaccination and inoculation against influenza : Flu (Influenza) *: flu Indication: Need for prophylactic vaccination and inoculation against influenza Need for prophylactic vaccination and inoculation against influenza : Flu (Influenza) *: flu shot Indication: Need for prophylactic vaccination and inoculation against influenza Mixed hyperlipidemia : Diet, Exercise, and Wt loss Indication: Mixed hyperlipidemia Mixed hyperlipidemia : Diet, Exercise, and Wt loss Indication: Mixed hyperlipidemia Woody involving 30-39% of body surface with 10-19% third degree woody : Reviewed Diagnostic Tests Indication: Woody involving 30-39% of body surface with 10-19% third degree woody Leg swelling : Follow up in 1 week Indication: Leg swelling Depression : follow up with [facility] 10 days Indication: Depression Sinusitis, acute : Eprescribed prescriptions (G8553) Indication: Sinusitis, acute Sinusitis, acute : *URI Symptoms Indication: Sinusitis, acute Sinusitis, acute : *Antibiotic Usage Education - Male Indication: Sinusitis, acute 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 : Diet, Exercise, and Wt loss 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 Mixed hyperlipidemia : Diet, Exercise, and Wt loss Indication: Mixed hyperlipidemia 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 : Diet, Exercise, and Wt loss 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 : High Blood Pressure (Essential Hypertension) *: essential hypertension 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 : High Blood Pressure (Essential Hypertension) *: blood pressure 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 Mixed hyperlipidemia : Diet, Exercise, and Wt loss Indication: Mixed hyperlipidemia 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 : FOLLOW UP IN 3 MONTHS 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 Planned Observations Lipid Panel ([id number])Indication: Mixed hyperlipidemia On: 49 Request MICROALBUMIN: CREATININE RATIO ([id number]) AND (96061)Indication: Mixed hyperlipidemia On: 49 Request URINALYSIS ([id number])Indication: Mixed hyperlipidemia On: 49 Request CBC WITH MANUAL DIFF ([id number])Indication: Mixed hyperlipidemia On: Request Metabolic Panel, Comprehensive ([id number])Indication: Mixed hyperlipidemia On: 49 Request CALCIFEDIOL (30709)Indication: Vitamin D deficiency On: 49 Request TSH ([id number])Indication: Mixed hyperlipidemia On: : Request URINALYSIS, W/ MICRO ([id number])Indication: Hypertensive 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 heart failure On: : Request MICROALBUMIN: CREATININE RATIO ([id number]) AND ([id number])Indication: Hypertensive 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 heart failure On: : Request METABOLIC PANEL, COMPREHENSIVE ([id number])Indication: Hypertensive 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 heart failure On: : Request CBC W/AUTO DIFF WBC ([id number])Indication: Hypertensive 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 heart failure On: : Request LIPOPROTEIN, BLD, BY NMR ([id number])Indication: Mixed hyperlipidemia On: : Request CALCIFEDIOL ([id number])Indication: Vitamin D deficiency On: : Request LIPID PANEL ([id number])Indication: Mixed hyperlipidemia On: : Request METABOLIC PANEL, COMPREHENSIVE ([id number])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 On: :07 Request CBC W/AUTO DIFF WBC ([id number])Indication: Lymphocytosis On: : Request LIPID PANEL ([id number])Indication: Hypertensive 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 heart failure On: :39 Request METABOLIC PANEL, COMPREHENSIVE ([id number])Indication: Hypertensive 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 heart failure On: :39 Request METABOLIC PANEL, COMPREHENSIVE ([id number])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 On: :08 Request HEPATIC FUNCTION PANEL ([id number])Indication: Mixed hyperlipidemia On: 64-Vbo-116356:53 Request LIPID PANEL ([id number])Indication: Mixed hyperlipidemia On: :52 Request METABOLIC PANEL, COMPREHENSIVE ([id number])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 On: :09 Request LIPID PANEL ([id number])Indication: Mixed hyperlipidemia On: :09 Request METABOLIC PANEL, COMPREHENSIVE (15398)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 On: 62-Ppq-377115:55 Request LIPID PANEL ([id number])Indication: Mixed hyperlipidemia On: :54 Request CBC WITH MANUAL DIFF ([id number]) On: :57 Request Electrolyte Panel (16843) On: :57 Request LIPID PANEL ([id number])Indication: Mixed hyperlipidemia On: 38-Ipq-813423:03 Request METABOLIC PANEL, COMPREHENSIVE ([id number])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 On: 64-Kog-461105:03 Request CBC WITH MANUAL DIFF ([id number])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 On: 93-Clk-476656:03 Request METABOLIC PANEL, COMPREHENSIVE (06333)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 On: 06-Oom-966097:05 Request HEPATIC FUNCTION PANEL ([id number])Indication: Mixed hyperlipidemia On: 36-Tuw-947930:05 Request Comments: 3 mos LIPID PANEL ([id number])Indication: Mixed hyperlipidemia On: 54-Cnn-706196:05 Request Planned Encounters Medical; General Medical - On: 14-Jan-2019 11:00 [facility] Swetha Pedersen DO, DO, Kathleen Planned Procedures XR CHEST, 1 DECUBITUS VIEW On: 28-Jun-2018 Intent ([id number])By: Swetha Pedersen DO Comments: on R side Swetha Pedersen DO CXR PA & LAT ([id number])By: Slava DOUGLAS, On: 28-Jun-2018 Intent Swetha Patel DO Comments: do third week of june ELECTROCARDIOGRAM, COMPLETE (ECG) On: 20-Nov-2017 Intent ([id number])By: Robyn Vergara Comments: nsr no acute cgh Flu Vaccine (Quadrivalent) 33698Dd: On: 22-May-2017 Intent Swetha Pedersen DO, DO, Comments: QUAD flu shotlot number: [id number]: 10/2017L Deltoid IMAD FIRE 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 INSPECTOR Swetha AGPO-[facility] COUNSELING On: 16-Jan-2017 Intent FOR OBESITY, 15 MINUTES ([id number])By: Swetha Pedersen DO, DO, Kathleen ELECTROCARDIOGRAM, COMPLETE (ECG) On: 21-Nov-2016 Intent ([id number])By: Swetha Pedersen DO Comments: nsr no acute chg Swetha Pedersen DO ADMINISTRATION OF INFLUENZA VIRUS On: 27-Apr-2015 Intent VACCINE ([id number])By: Lisa Potter DO FLU VAC, SPLIT, >3 YEARS, INTRAMUSC On: 27-Apr-2015 Intent ([id number])By: Lisa Potter DO Comments: Lot:[id number]:12/13Dose:0.5mLRoute:IMSite:L DltdGiven By:AMBROSIO signed EKG ([id number])By: Lisa Potter DO On: 13-Oct-2014 Intent Comments: ekg showed normal sinus rhythym, normal axis, no acute st/t wave changes lvh IMMUNIZ ADMNIN, 1 VAC, SNGL/COMBO On: 07-Oct-2013 Intent ([id number])By: Lisa Potter DO Comments: Lot: [id number]: [id number]: 0.5mlRoute: IMSite: L detoidGiven by: ALYSSA Sotelo PNEUM VAC ADLT/IMUMNOSPR, SBC/INTRM On: 07-Oct-2013 Intent ([id number])By: Lisa Potter DO EKG ([id number])By: Lisa Potter DO On: 07-Oct-2013 Intent Comments: ekg- sinus with left axis and lvh no change compared to prvious FLU VAC, SPLIT, >3 YEARS, INTRAMUSC On: 10-Oct-2011 Intent ([id number])By: Mila Osullivan Comments: received 04/2011 TDAP VACCINE >7 IM ([id number])By: On: 10-Oct-2011 Intent Mila Osullivan Comments: declines Eprescribed prescriptions (G8553)By: On: 01-Apr-2011 Intent Lisa Potter DO EKG ([id number])By: Mila Osullivan On: 12-Oct-2009 Intent EKG ([id number])By: Lisa Potter DO On: 25-Sep-2006 Intent Comments: ekg showed normal sinus rhythym, normal axis, no acute st/t wave changes Instructions Name Dates Details Non-smoker : How to access health information online Indication: Non-smoker Non-smoker : How to access health information online - Detail Indication: Non-smoker Non-smoker : Patient Instructions Indication: Non-smoker Non-smoker : How to access health information online Indication: Non-smoker Non-smoker : How to access health information online - Detail Indication: Non-smoker Non-smoker : Patient Instructions Indication: Non-smoker Non-smoker : How to access health information online Indication: Non-smoker Non-smoker : How to access health information online - Detail Indication: Non-smoker Non-smoker : Patient Instructions Indication: Non-smoker Hypertensive 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 heart failure : Patient Instructions Indication: Hypertensive 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 heart failure Hypertensive 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 heart failure : How to access health information online Indication: Hypertensive 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 heart failure Hypertensive 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 heart failure : How to access health information online - Detail Indication: Hypertensive 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 heart failure Hypertensive 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 heart failure : Patient Instructions Indication: Hypertensive 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 heart failure BMI 34.0-34.9,adult : How to access health information online Indication: BMI 34.0-34.9,adult BMI 34.0-34.9,adult : How to access health information online - Detail Indication: BMI 34.0-34.9,adult BMI 34.0-34.9,adult : Patient Instructions Indication: BMI 34.0-34.9,adult Low HDL (under 40) : Patient Instructions Indication: Low HDL (under 40) Need for prophylactic vaccination and inoculation against influenza : How to access health information online Indication: Need for prophylactic vaccination and inoculation against influenza Need for prophylactic vaccination and inoculation against influenza : Patient Instructions Indication: Need for prophylactic vaccination and inoculation against influenza Annual Medicare Phyiscal WITHOUT abnormal findings (Renamed from Encounter for general adult medical examination without abnormal findings) : Patient Instructions Indication: Annual Medicare Phyiscal WITHOUT abnormal findings (Renamed from Encounter for general adult medical examination without abnormal findings) Hypertensive 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 heart failure : obesity counseling Indication: Hypertensive 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 heart failure BMI 33.0-33.9,adult : How to access health information online Indication: BMI 33.0-33.9,adult BMI 33.0-33.9,adult : How to access health information online - Detail Indication: BMI 33.0-33.9,adult BMI 33.0-33.9,adult : Patient Instructions Indication: BMI 33.0-33.9,adult Hypertensive 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 heart failure : Patient Instructions Indication: Hypertensive 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 heart failure Nonsmoker : How to access health information online Indication: Nonsmoker Nonsmoker : How to access health information online - Detail Indication: Nonsmoker Nonsmoker : Patient Instructions Indication: Nonsmoker BMI 32.0-32.9,adult : How to access health information online Indication: BMI 32.0-32.9,adult BMI 32.0-32.9,adult : How to access health information online - Detail Indication: BMI 32.0-32.9,adult BMI 32.0-32.9,adult : Patient Instructions Indication: BMI 32.0-32.9,adult Hypertensive 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 heart failure : How to access health information online Indication: Hypertensive 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 heart failure Hypertensive 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 heart failure : How to access health information online - Detail Indication: Hypertensive 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 heart failure Hypertensive 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 heart failure : Patient Instructions Indication: Hypertensive 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 heart failure Stress reaction : How to access health information online Indication: Stress reaction Stress reaction : How to access health information online - Detail Indication: Stress reaction Stress reaction : Patient Instructions Indication: Stress reaction Mixed hyperlipidemia : How to access health information online Indication: Mixed hyperlipidemia Mixed hyperlipidemia : How to access health information online - Detail Indication: Mixed hyperlipidemia Mixed hyperlipidemia : Patient Instructions Indication: Mixed hyperlipidemia Mixed hyperlipidemia : How to access health information online Indication: Mixed hyperlipidemia Mixed hyperlipidemia : How to access health information online - Detail Indication: Mixed hyperlipidemia Hypertensive 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 heart failure : Patient Instructions Indication: Hypertensive 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 heart failure Bilateral inguinal hernia without obstruction or gangrene : How to access health information online Indication: Bilateral inguinal hernia without obstruction or gangrene Bilateral inguinal hernia without obstruction or gangrene : How to access health information online - Detail Indication: Bilateral inguinal hernia without obstruction or gangrene Bilateral inguinal hernia without obstruction or gangrene : Patient Instructions Indication: Bilateral inguinal hernia without obstruction or gangrene 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 : How to access health information online 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 : How to access health information online - Detail 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 : Patient Instructions 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 Mixed hyperlipidemia : How to access health information online Indication: Mixed hyperlipidemia Mixed hyperlipidemia : How to access health information online - Detail Indication: Mixed hyperlipidemia Mixed hyperlipidemia : Patient Instructions Indication: Mixed hyperlipidemia Mixed hyperlipidemia : Patient Instructions Indication: Mixed hyperlipidemia Mixed hyperlipidemia : Patient Instructions Indication: Mixed hyperlipidemia Leg swelling : Patient Instructions Indication: Leg swelling Sinusitis, acute : Patient Instructions Indication: Sinusitis, acute 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 Expiration date unspecified Encounters Phone Encounter On: 16-Jul-2018 9:47 Encounter Diagnosis: High triglycerides, Mixed hyperlipidemia, Vitamin D deficiency End: 16-Jul-2018 9:50 [facility] Office Visit On: 16-Jul-2018 8:55 Encounter Reason: Follow up tests - Date: (07/10/18 xray).Encounter Diagnosis: BMI 30.0-30.9,adult, Non-smoker, Pleural effusion on right, Pneumonia, Abnormal lung sounds End: 16-Jul-2018 9:38 [facility] Office Visit On: 28-Jun-2018 12:06 Encounter Reason: Follow up hospital - Reason for ER visit: note: (in several times). The patient feels well with minor complaints, has good energy level and is sleeping well. Patient has been compliant with instructions End: 28-Jun-2018 12:50 . Current medication use: no side effects and compliant with dosing regimen. Patient sleeps 7 hours per night. Nutrition: balanced diet and supplemental vitamins.Encounter Diagnosis: BMI 30.0-30.9,adult, Non-smoker, Pneumonia, Bilateral inguinal hernia without obstruction or gangrene, Pleural effusion on right, Abnormal lung sounds [facility] Phone Encounter On: 26-Jun-2018 11:51 Encounter Diagnosis: Pneumonia End: 26-Jun-2018 11:53 [facility] Phone Encounter On: 19-Jun-2018 15:18 Encounter Reason: [facility] End: 19-Jun-2018 15:35 Office Visit On: 13-Jun-2018 10:59 Encounter Reason: Annual Medicare Exam - The patient had reviewed and updated the family history, medication/s, past medical history and social history. Yes the patient did have () a mini mental status exam done to End: 13-Jun-2018 12:32 ay. The activities of daily living the patient needs help with are none. The patient has driven in past 6 months, but the patient has not had fecal incontinence, had urinary incontinence, missed or ran out of medications to soon, fallen in the past 6 months, gotten lost, has a medalert necklace or bracelet, put area rugs through house or put handrails in bathroom. The patient has completed the followi ng preventative measures: PSA testing (11/2017) and colonoscopy (2014). 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 The patient has noticed nothing from the geriatic depression sc giancarlo. Other providers contributing to the patient's care are urologist ().Encounter Diagnosis: Non-smoker, BMI 33.0-33.9,adult, Physical exam WITHOUT abnormal findings (Renamed from Encounter for routine adult health examination without abnormal findings), Encounter for screening for malignant neoplasm of prostate (Renamed from Screening for prostate cancer),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 Follow up for chronic medical issues - The patient feels well with no complaints, has good energy level and is sleeping well. Patient has been compliant with instructions. Current medication use: no issac End: 01-Apr-2011 12:27 e effects and compliant with dosing regimen. Patient sleeps 7 hours per night. Nutrition: inappropriate diet, supplemental vitamins and low salt diet. The medical issues the patient is following up for include All identified problems below, high blood pressure, high cholesterol and other (bph, ddd, leukocytosis). Note for Follow up for chronic medical issues: Pt didnt have the bloodwork done d/t sti ll no insurance.- he has cut coffee and feels better on higher dose of bp med- and weight coming down - and walking more routinely- weight down 21 pounds in last 1 1/2 yearsEncounter Diagnosis: Hypertension with LVH (402.90), Hyperlipidemia, Unspecified (272.4), Other and unspecified alcohol dependence, unspecified drinking behavior (303.90) [facility] Office Visit On: 11-Oct-2010 12:03 Encounter Reason: Follow up for chronic medical issues - The patient feels well with no complaints, has good energy level and is sleeping well. Patient has been compliant with instructions. Current medication use: no issac End: 11-Oct-2010 12:37 e effects and compliant with dosing regimen. Patient sleeps 7 hours per night. Nutrition: inappropriate diet, supplemental vitamins and low salt diet. The medical issues the patient is following up for include All identified problems below, high blood pressure, high cholesterol and other (bph, ddd, leukocytosis). Note for Follow up for chronic medical issues: Pt didnt have the bloodwork done d/t cos t.- and had to get glasses that cost him 500- and also saw dentist- needs annual tb test at work and was done and negative- he is walking every morning- his weight is up- he isnt using additional salt- - 4cups of coffee a day- discussed trying to cut backEncounter Diagnosis: Hypertension with LVH (402.90), Hyperlipidemia, Unspecified (272.4) [facility] Office Visit On: 12-Apr-2010 11:24 Encounter Reason: Follow up for chronic medical issues - The patient feels well with no complaints ,has good energy level and is sleeping well. Patient has been compliant with instructions. Current medication use: no issac End: 12-Apr-2010 12:03 e effects and compliant with dosing regimen. Patient sleeps 7 hours per night. Nutrition: inappropriate diet ,supplemental vitamins and low salt diet. The medical issues the patient is following up for include All identified problems below ,high blood pressure ,high cholesterol and other (bph, ddd, leukocytosis). Note for Follow up for chronic medical issues: feeling better-- he has lost 20 pounds a nd has been trying- he is exercising more routinely- waking and bike riding- he doesnt check bp s at home- watching salt and caffeine- got flu shot already- encouraged him in futrue to wait until later-Encounter Diagnosis: Hypertension with LVH (402.90), Hyperlipidemia, Unspecified (272.4), BPH (600.01) [facility] Office Visit On: 12-Oct-2009 11:28 Encounter Reason: Follow up for chronic medical issues - The patient feels well with no complaints ,has good energy level and is sleeping well. Patient has been compliant with instructions. Current medication use: no issac End: 12-Oct-2009 12:18 e effects and compliant with dosing regimen. Patient sleeps 7 hours per night. Nutrition: inappropriate diet ,supplemental vitamins and low salt diet. The medical issues the patient is following up for include All identified problems below ,high blood pressure ,high cholesterol and other (bph, ddd, leukocytosis). Note for Follow up for chronic medical issues: got yearly pp d at work and was neg- has a dentist appt today- getting eye exam no issues- his bp not bad- in december 25 years of sobriety- - he continues his meetings and his positive role model issues-- his bp is pretty good, [ADDITIONAL REASON] Follow up, Laboratory Test Results - Date: (10/05/09). Encounter Diagnosis: Hypertension with LVH (402.90), Hyperlipidemia, Unspecified (272.4), HYPONATREMIA, NOS (276.1) [facility] Office Visit On: 20-Apr-2009 12:11 Encounter Reason: Follow up for chronic medical issues - The patient feels well with no complaints ,has good energy level and is sleeping well. Patient has been compliant with instructions. Current medication use: no issac End: 20-Apr-2009 22:34 e effects and compliant with dosing regimen. Patient sleeps 7 hours per night. Nutrition: inappropriate diet ,supplemental vitamins and low salt diet. The medical issues the patient is following up for include All identified problems below ,high blood pressure ,high cholesterol and other (bph, ddd, leukocytosis). Encounter Diagnosis: Hypertension with LVH (402.90), Hyperlipidemia, Unspecified (272.4), BPH (600.01) [facility] Historical Summary On: 06-Jan-2009 14:58 [facility] End: 06-Jan-2009 15:01 Office Visit On: 27-Oct-2008 11:34 Encounter Reason: Follow up for chronic medical issues - The patient feels well with no complaints ,has good energy level and is sleeping well. Patient has been compliant with instructions. Current medication use: no issac End: 27-Oct-2008 12:08 e effects and compliant with dosing regimen. Patient sleeps 8 hours per night. Nutrition: balanced diet ,supplemental vitamins and low salt diet. The medical issues the patient is following up for inclu de All identified problems below ,high blood pressure ,high cholesterol and other (alcoholic, ddd, bph). 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 Patient has been compliant with instructions. Current medication use: no issac End: 16-Jun-2008 12:14 e effects and compliant with dosing regimen. Patient sleeps 7 hours per night. Nutrition: inappropriate diet ,supplemental vitamins and low salt diet. The medical issues the patient is following up for include All identified problems below ,high blood pressure ,high cholesterol and other (ddd, bph, viral hep b, cholelithiasis). 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 The course has been increasing. The rash is characterized as red and raised above the skin. The ra End: 29-Feb-2008 9:43 sh was first seen on the abdomen and the lower extremity. It spread to the lower extremity. There has been associated itching, while there has been no pain. Note for Rash: tried OTC adriel itch and spray and it was not working very well. Encounter Diagnosis: Dermatitis (692.9) [facility] Office Visit On: 11-Feb-2008 11:07 Encounter Reason: Follow up for chronic medical issues - The patient feels well with no complaints ,has good energy level and is sleeping well. Patient has been compliant with instructions. Current medication use: no issac End: 11-Feb-2008 22:56 e effects and compliant with dosing regimen. The medical issues the patient is following up for include All identified problems below ,high blood pressure ,high cholesterol and other (ddd, bph, cp, alco holic). Note for Follow up for chronic medical issues: we noticed bp and weight up---Encounter Diagnosis: Hypertension with LVH (402.90) [facility] Office Visit On: 15-Oct-2007 11:05 Encounter Reason: Follow up for chronic medical issues - The patient feels well with no complaints. Patient has been compliant with instructions. Current medication use: no side effects. Patient sleeps 7 hours per night. End: 15-Oct-2007 11:37 Nutrition: balanced diet. The medical issues the patient is following up for include All identified problems below ,high blood pressure ,high cholesterol and other (BPH, Hep B). 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 Patient has been compliant with instructions. Current medication use: no issac End: 18-Jun-2007 12:14 e effects and compliant with dosing regimen. Nutrition: balanced diet ,supplemental vitamins and low salt diet. The medical issues the patient is following up for include All identified problems below , high blood pressure ,high cholesterol and other (BPH, DDD, CP). Note for Follow up for chronic medical issues: has no insurance so didnt get lab done-- he did get a psa 2.65 and total chol was 177 and bs was 66 that he got done-- Encounter Diagnosis: Hypertension with LVH (402.90), Hyperlipidemia, Unspecified (272.4), BPH (600.01) [facility] Office Visit On: 12-Feb-2007 15:00 Encounter Reason: Follow up for chronic medical issues - The patient feels well with no complaints ,has good energy level and is sleeping well. Patient has been compliant with instructions. Current medication use: no issac End: 12-Feb-2007 16:05 e effects ,compliant with dosing regimen and considered effective by patient. Patient sleeps 7 hours per night. Nutrition: balanced diet. The medical issues the patient is following up for include All i dentified problems below and other (HTN with LVH, Hyperlipidemia, Chest Pain. Pt [facility] cholesterol check [facility]/18/07 [facility] Note for Follow up for chronic medical issues: he lost job after 32 years and initally depressed- but now just bored- now looking for a job-- trying to remain optimistic- did get a lab done at [facility] my lab-- chol 176- still hdl low 28 -- [id number] Diagnosis: Hypertension with LVH (402.90), Hyperlipidemia, Unspecified (272.4) [facility] Office Visit On: 25-Sep-2006 13:55 Encounter Reason: Follow up for chronic medical issues - The patient feels well with no complaints ,has good energy level and is sleeping well. Patient has been compliant with instructions. Current medication use: no issac End: 25-Sep-2006 15:21 e effects and compliant with dosing regimen. Patient sleeps 7 hours per night. Nutrition: balanced diet ,inappropriate diet ,supplemental vitamins and low salt diet. The medical issues the patient is fo llowing up for include All identified problems below ,high blood pressure ,high cholesterol and other (DDD). , [ADDITIONAL REASON] Follow up, Laboratory Test Results - Date: (09/18/06- on face sheet). Note for F ollow up, Laboratory Test Results: walking more and chol improving and bp still up Encounter Diagnosis: Hypertension with LVH (402.90), Hyperlipidemia, Unspecified (272.4), Chest pain (786.59) [facility] Office Visit On: 19-Jun-2006 9:11 Encounter Reason: Follow up for chronic medical issues - The patient feels well with no complaints ,has good energy level and is sleeping well. Patient has been compliant with instructions. Current medication use: no issac End: 19-Jun-2006 10:08 e effects. Patient sleeps 7 hours per night. Nutrition: balanced diet ,supplemental vitamins and low salt diet. The medical issues the patient is following up for include high blood pressure and high ch olesterol. blood pressure range : and weight :. Note for Follow up for chronic medical issues: flu vaccine and new glasses, and also got prostate exam and psa which were normal- walking q am, [ADDITIONAL REASON] Follow up, Laboratory Test Results - Date: (06/12/06-FLP, ON PAPER CHART.). Encounter Diagnosis: Hypertension with LVH (402.90), Hyperlipidemia, Unspecified (272.4), BPH (600.01) [facility] Historical Summary On: 13-Jun-2006 12:10 [facility] End: 13-Jun-2006 12:23 Historical Summary On: 25-May-2006 9:53 Encounter Diagnosis: Unspecified Diagnosis End: 25-May-2006 9:54 [facility] [place]; ezekiel guarantor
--- OUTSIDE RECORDS SUMMARY | 2018-08-26 09:45 | XMS RPT_ITS | Continuity of Care Document ---
:1945 Author Organization [facility] Address [address] [facility] [address] [place] [address] Phone Care Team Providers Name Role Phone [...] hernia without obstruction or gangrene (K40.20, 550.92) Comments: not having pain awaiting to determine surgery based on next treatmentDr Paul 07/15 Status: Active BMI 32.0-32.9,adult (Z68.32, V85.32) Status: [...] in size with no enhancem ent [facility] recurrent disease,Diagnosed in 2015: 2 procedure Y [...] 90 days Quantity: 180 {Tablet} Refills: 1 Ordered:13-Jun-2018 Cinthia Pedersen DO, DO, Kathleen Start : 13-Jun-2018 Active Comments:Dr.Eric Tovar adjusted medication at hospital MULTIVITAMIN (Oral Liquid) for 0 days Refills: 0 Ordered:26-Mar-2018 Maribeth Jennifer RADHANActive Vitamin D (Cholecalciferol) 1000 UNIT Oral Capsule [...] 16-Aug-2016 End : 15-Sep-2016 Inactive Vitamin D3 92829 UNIT Oral Capsule 1 (one) Capsule Capsule [...] Active Past Medical History Name Dates Details Benign prostatic hyperplasia with urinary obstruction and [...] 31 years Status: Resolved as of 01-Apr-2011 Screening examination for pulmonary tuberculosis (Z11.1, V74.1) Status: Inactive as of 30-Mar-2012 Procedures Date Value Details 11-May-2018 Emergency Department Summary Result: Comments: See Note; NOTES: [facility] Medical Records Department [address] [place] [address] Emergency Department Summary 05/11/18 1307 MR#: [id number] Acct: [id number] Name: LUCAS EAST Rep #: [id number] : 1945 73 From: Cristina Lyles MD PCP: Swetha Pedersen DO Status: REG ER - ER Visit Summary Date of Service: 05/11/18 Chief Complaint: Wound check Histo ry of Present Illness: The patient is a 73 M presenting for wound check. Patient had surgery at [facility] on April 25 for a strangulated hernia. This was complicated by sepsis. He was in [facility] 12 [facility]. He was discharged 1 [...] acquired pneumonia. Discussed with Dr. Meeks at [facility]. He is in agreement that the patient can stay at [facility] as the patient wishes. Discussed with Dr. Hyde and patient will be admitted. Disposition: Admission Impression: Healthcare acquired pneumonia This note was generated with [employer] dictation software. It may contain incorrect words, [...] problems, contact your Primary Care Provider. Call [facility] ([phone]) or report to the closest Emergency Room. Call 911 if necessary. 05/11/18 1601 <Electronically signed by Shayne Lyles MD> Date rCistina Lyles MD Cosigner Signature (If Indicated): Date CC: Swetha Pedersen DO 11-May-2018 Acute Abdomen Inc Chest Result: Comments: See Note; NOTES: [facility] Imaging Services [address] [place] [address] Acute Abdomen Inc Chest MR#: [id number] Acct: [id number] Name: LUCAS EAST Rep #: [id number] : 1945 73 From: Benton Toledo MD PCP: Swetha Pedersen DO Status: [facility] ER Study: Acute Abdomen Inc Chest Date of Exam: 05/11/18 Exam# [id number] Ordering Dr: Cristina Lyles MD JONATAN DY: X-RAY - ACUTE ABDOMINAL SERIES REASON [...] CC: Cristina Lyles MD; Swetha Pedersen DO Health Safety Specialist: Signed 21-Apr-2018 Emergency Department Summary Result: Comments: See Note; NOTES: [facility] Medical Records Department [address] [place] [address] Emergency Department Summary 04/21/18 0057 MR#: [id number] Acct: [id number] Name: LUCAS EAST Rep #: [id number] : 1945 73 From: Bobby Walton MD [...] not having vomiting. Will be transferred to [facility] as our ope rating room is down for cleaning. Discussed with our surgeon on-call Dr. Amezcua and also Dr. Cohen at [facility]. He will be transferred. Given morphine IV fluids and Zofran with good relief of sy mptoms Treatment Plan: [] Disposition: [] Impression: [] Incarcerated right inguinal hernia Small bowel obstruction secondary to incarcerated inguinal hernia Acute renal insufficiency Critical CARE time: 30-74 minutes This note was generated with Codesionation software. It may contain incorrect words, spelling, and punctuation that were not noted in review of the chart prior to signing ED Disposition - Plan for ED Patient: Chief Complaint: Abd Pain Referrals: Swetha Pedersen DO [Primary Care Provider] - What to do if you have Problems For any increased pain, shortness of breath, bl eeding, nausea or vomiting, chest pain, or any unexpected problems, contact your Primary Care Provider. Call [facility] ([phone]) or report to the closest Emergency Room. Call 911 if necessar y. 04/21/18 0214 <Electronically signed by Bobby Walton MD> Date Bobby Walton MD Cosigner Signature (If Indicated): Date __ CC: Swetha Pedersen DO 20-Apr-2018 Abdomen/Pelvis without Cont Result: Comments: See Note; NOTES: [facility] Imaging Services [address] [place] [address] Abdomen/Pelvis without Cont MR#: [id number] Acct: [id number] Name: LUCAS EAST Nurys Rep # : [id number] : 1945 M 73 From: Laverne Ladd MD PCP: Swetha Pedersen DO Status: REG ER Study: Abdomen/Pelvis without Cont Date of Exam: 04/20/18 Exam# [id number] Ordering Dr: Bobby Walton STUDY: CT ABDOMEN [...] CC: Swetha Pedersen DO; Bobby Walton MD Health Safety Specialist: Signed 10-Nov-2014 Abdomen/Pelvis W/WO Contrast Result: Comments: See Note; NOTES: [facility] Imaging Services [address] [place] [address] CAT Scan Report MR#: [id number] Acct: [id number] Name: LUCAS EAST Rep #: [id number] : 1945 M 69 From: Salvatore Gomes DO PCP: Lisa Potter DO Status: REG CLI Study: Abdomen/Pelvis W/WO Contrast Date of Exam: 11/10/14 Exam# [id number] Ordering Dr: Josef Patton MD [facility] DY: CT ABDOMEN AND PELVIS WITH AND [...] cortical scarring. 4. Enlarged prostate. Electronically Signed: Salvatore Gomes DO 11/10 at 13:34 EDT Tel [phone], Service support [phone], CC: Lisa Potter DO; Josef Patton Health Safety Specialist: Signed Immunization Name Dates Details Influenza vaccine, [...] smoker Vital Signs Date Test Result Details 07-Gnx-777505:02 Comments: 12/2017 last eye exam was tested [...] kg/m2 Body Surface Area Calculated 2.32 m2 :05 Pulse 80 /min Comments: Pattern: Regular Respiration [...] Area Calculated 2.32 m2 :03 Comments: hearing wnlDr. Muhammad and had aglaucoma test done Pulse [...] kg/m2 Body Surface Area Calculated 2.34 m2 88-Jhk-104980:38 Temperature 98.1 f Comments: Method: Temporal Pulse [...] 0.00 cm Results Date Description Value Details 26-Jwa-052285:33 Basic Metabolic Profile (BMP) Comments: Send Results To: Swetha Hudson for Laboratory [facility] [address] [place], [address] GAP 11 (Normal) Range: 5-15 CO2 28.0 [...] Comments: Please note revised GLUCOSE reference range aiyldvyul06/02/2018. 12-Qqj-655046:29 Urinalysis, Complete Comments: Order Date: 05/11/18How was Urine Obtained? CLEAN [facility] [address]phmw[address] [facility] [place], [address] MUCUS, URINE 2+ {/hpf} (Normal) BACTERIA 1+ [...] (Normal) CLARITY Clear (Normal) COLOR Yellow (Normal) 67-Urk-670774:19 Basic Metabolic Profile (BMP) Comments: [facility] [address]ctrfk[address] [facility], [address] GAP 7 (Normal) Range: 5-15 CO2 25.0 [...] A.D.A. criteria.Please note revised GLUCOSE reference range elqisrnzk32/02/2018. 06-Kik-847450:19 CBC W/Diff, Automated Comments: [facility] [address] [place], [address] Absolute Lymph 1.73 {X10_3/ul} (Normal) Range: 0.83-4.51 [...] 4.6-6.2 WBC 7.5 K/mm3 (Normal) Range: 4.4-11.0 06-Cgd-881630:10 Basic Metabolic Profile (BMP) Comments: [facility] [address] [place], [address] GAP 12 (Normal) Range: 5-15 CO2 22.0 [...] A.D.A. criteria.Please note revised GLUCOSE reference range xfkunszkc12/02/2018. 94-Wcb-093761:10 CBC W/Diff, Automated Comments: [facility] [address] [place], [address] Absolute Lymph 2.70 {X10_3/ul} (Normal) Range: 0.83-4.51 [...] Range: 4.4-11.0 :10 Partial Thromboplast Time Comments: [facility] [address] [place], [address] PTT 39.8 s (Abnormal) Range: 24.1-36.2 :10 Prothrombin Time w/INR Comments: [facility] [address]ub[address] [place], [place], [address] INR 1.3 (Normal) PROTIME 16.3 s (Abnormal) Range: 11.7-14.9 :21 Microscopic Examination Comments: PATIENT WAS FASTINGPERFORMED BY: [facility] [facility] [id number] Bacteria Few (Normal) Mucus Threads Present (Normal) Cast Type Hyaline casts (Normal) Casts Present {/lpf} (Abnormal) Epithelial Cells (non renal) 0-10 {/hpf} (Normal) Range: 0 - 10 RBC 0-2 {/hpf} (Normal) Range: 0 - 2 WBC 0-5 {/hpf} (Normal) Range: 0 - 5 :49 PSA,Total- Diagnostic Comments: [facility] [address] [place], [place], [address] PSA, DIAGNOSTIC 4.43 ng/mL (Abnormal) Range: 0.0-4.0 Comments: This test was performed using the TPSA assay method for Lightspeed chemistry system. Values obtained with differentassay methods cannot be used interchangably.When changing PSA assays in the course of monitoring apatient, additional sequential testing should be carriedout to confirm baseline values. 45-Mvq-593585:50 HgA1C , Office (23210) HgA1C , Office 5.7 % (Normal) Range: 4.6 - 7.1 :21 CALCIFEDIOL (47903) Comments: PATIENT WAS FASTINGPERFORMED BY: [facility] [facility] [id number] Vitamin D, 25-Hydroxy 49.2 ng/mL (Normal) Range: 30.0-100.0 Comments: Vitamin D deficiency has been defined by the [place] ofMedicine and an Endocrine Society practice guideline as alevel of serum 25-OH vitamin D less than 20 ng/mL (1,2).The Endocrine Society went on to further define vitamin Dinsufficiency as a level between 21 and 29 ng/mL (2).1. IOM (Blue Diamond of Medicine). 2010. Dietary reference intakes for calcium and D. [place]: The National Academies Press.2. Reuben MF, Stephanie NC, Radha MILLIGAN, et al. Evaluation, treatment, and prevention of vitamin D deficiency: an Endocrine Society clinical practice guideline. JCEM. 2010; 96(7):1911-30. :21 TSH (39254) Comments: PATIENT WAS FASTINGPERFORMED BY: [facility] Zhvptg7926 [facility] [id number] TSH 2.900 {uIU/mL} (Normal) Range: 0.450-4.500 :21 URINALYSIS, W/ MICRO (39468) Comments: PATIENT WAS FASTINGPERFORMED BY: [facility]6[address] [facility] [id number] Microscopic Examination See below: (Normal) Comments: Microscopic was indicated and was performed. Microscopic Examination MICRON (Normal) Comments: Microscopic follows if indicated. Nitrite, Urine Negative (Normal) Urobilinogen,Semi-Qn 0.2 mg/dL (Normal) Range: 0.2-1.0 Bilirubin Negative (Normal) Occult Blood Negative (Normal) Ketones Negative (Normal) Glucose Negative (Normal) Protein Negative (Normal) WBC Esterase Negative (Normal) Appearance Clear (Normal) Urine-Color Yellow (Normal) pH 5.0 (Normal) Range: 5.0-7.5 Specific [place] 1.016 (Normal) Range: 1.005-1.030 :21 MICROALBUMIN: CREATININE RATIO Comments: PATIENT WAS FASTINGPERFORMED BY: [facility] Kmuafm8029 [facility] [id number] (26497) AND (96310) Alb/Creat Ratio <3.8 {mg/g_creat} (Normal) Range: 0.0-30.0 Albumin, Urine <3.0 ug/mL (Normal) Creatinine, Urine 79.5 mg/dL (Normal) :21 METABOLIC PANEL, COMPREHENSIVE Comments: PATIENT WAS FASTINGPERFORMED BY: [facility] VinelandRzkimy0846 [facility] [id number] (34769) ALT (SGPT) 16 [iU]/L (Normal) Range: 0-44 [...] 8-27 Glucose 94 mg/dL (Normal) Range: 65-99 29-Rkw-91026:21 CBC W/AUTO DIFF WBC (37063) Comments: PATIENT WAS FASTINGPERFORMED BY: [facility] VinelandUvaaij8599 [facility] [id number] Immature Grans (Abs) 0.0 {x10E3/uL} (Normal) Range: [...] {x10E3/uL} (Normal) Range: 3.4-10.8 :21 LIPID PANEL (49238) Comments: PATIENT WAS FASTINGPERFORMED BY: [facility]Former[facility] [id number] LDL/HDL Ratio 3.0 {ratio} (Normal) Range: 0.0-3.6 Comments: LDL/HDL Ratio Men Women 1/2 Avg.Risk 1.0 1.5 Av g.Risk 3.6 3.2 2X Avg.Risk 6.2 5.0 3X Avg.Risk 8.0 6.1 LDL Cholesterol Calc 107 mg/dL (Abnormal) Range: 0-99 VLDL Cholesterol Elvin 30 mg/dL (Normal) Range: 5-40 HDL Cholesterol 36 mg/dL (Abnormal) Triglycerides 149 mg/dL (Normal) Range: 0-149 Cholesterol, Total 173 mg/dL (Normal) Range: 100-199 41-Jyb-57806:49 Microscopic Examination Comments: PATIENT WAS FASTINGPERFORMED BY: [employer]70 [facility] MeadowFormer[facility] [id number] Bacteria None seen (Normal) Mucus Threads Present (Normal) Epithelial Cells (non renal) 0-10 {/hpf} (Normal) Range: 0 - 10 RBC 0-2 {/hpf} (Normal) Range: 0 - 2 WBC 0-5 {/hpf} (Normal) Range: 0 - 5 :12 PSA,Total- Diagnostic Comments: [facility] [address] [place], [address] PSA, DIAGNOSTIC 4.20 ng/mL (Abnormal) Range: 0.0-4.0 Comments: This test was performed using the TPSA assay method for Lightspeed chemistry system. Values obtained with differentassay methods cannot be used interchangably.When changing PSA assays in the course of monitoring apatient, additional sequential testing should be carriedout to confirm baseline values. :49 TSH (01284) Comments: PATIENT WAS FASTINGPERFORMED BY: [facility] Iszafs9230 [address] RoadDublin [place] [id number] TSH 3.530 {uIU/mL} (Normal) Range: 0.450-4.500 :49 CALCIFEDIOL (26742) Comments: PATIENT WAS FASTINGPERFORMED BY: CB [facility] Fwgdmy2199 [address] RoadDublin [place] [id number] Vitamin D, 25-Hydroxy 28.4 ng/mL (Abnormal) Range: 30.0-100.0 Comments: Vitamin D deficiency has been defined by the Blue Diamond ofMedicine and an Endocrine Society practice guideline as alevel of serum 25-OH vitamin D less than 20 ng/mL (1,2).The Endocrine Society went on to further define vitamin Dinsufficiency as a level between 21 and 29 ng/mL (2).1. IOM (Blue Diamond of Medicine). 2010. Dietary reference intakes for calcium and D. [place]: The National Academies Press.2. Reuben MF, Stephanie NC, Radha MILLIGAN, et al. Evaluation, treatment, and prevention of vitamin D deficiency: an Endocrine Society clinical practice guideline. JCEM. 2010; 96(7):1911-30. :49 URINALYSIS, W/ MICRO (95972) Comments: PATIENT WAS FASTINGPERFORMED BY: CB [facility] Esujue3463 [address] RoadDublin [place] [id number] Microscopic Examination See below: (Normal) Comments: Microscopic was indicated and was performed. Microscopic Examination MICRON (Normal) Comments: Microscopic follows if indicated. Nitrite, Urine Negative (Normal) Urobilinogen,Semi-Qn 0.2 mg/dL (Normal) Range: 0.2-1.0 Bilirubin Negative (Normal) Occult Blood Negative (Normal) Ketones Negative (Normal) Glucose Negative (Normal) Protein Negative (Normal) WBC Esterase Negative (Normal) Appearance Clear (Normal) Urine-Color Yellow (Normal) pH 5.5 (Normal) Range: 5.0-7.5 Specific [place] 1.018 (Normal) Range: 1.005-1.030 :49 MICROALBUMIN: CREATININE RATIO Comments: PATIENT WAS FASTINGPERFORMED BY: RayspanIn[facility] VinelandKsaxlo5091 [facility] [id number] ([id number]) AND (87645) Alb/Creat Ratio <3.0 {mg/g_creat} (Normal) Range: 0.0-30.0 Albumin, Urine <3.0 ug/mL (Normal) Creatinine, Urine 101.1 mg/dL (Normal) :49 METABOLIC PANEL, COMPREHENSIVE Comments: PATIENT WAS FASTINGPERFORMED BY: [facility]panIn[facility] VinelandAghvsn3823 [facility] [id number] (86049) ALT (SGPT) 17 [iU]/L (Normal) Range: 0-44 [...] 8-27 Glucose 100 mg/dL (Abnormal) Range: 65-99 79-Hik-10059:49 CBC W/AUTO DIFF WBC (33525) Comments: PATIENT WAS FASTINGPERFORMED BY: [facility]Co[facility] VinelandGgxsfe2440 [facility] [id number] Immature Grans (Abs) 0.0 {x10E3/uL} (Normal) Range: [...] 4.14-5.80 WBC 5.3 {x10E3/uL} (Normal) Range: 3.4-10.8 15-Ibg-82362:49 LIPID PANEL (61302) Comments: PATIENT WAS FASTINGPERFORMED BY: [facility] CastleCoIn[facility] VinelandAtsinv1890 [facility] [id number] LDL/HDL Ratio 4.3 {ratio} (Abnormal) Range: 0.0-3.6 Comments: LDL/HDL Ratio Men Women 1/2 Avg.Risk 1.0 1.5 Av g.Risk 3.6 3.2 2X Avg.Risk 6.2 5.0 3X Avg.Risk 8.0 6.1 LDL Cholesterol Calc 149 mg/dL (Abnormal) Range: 0-99 VLDL Cholesterol Elvin 36 mg/dL (Normal) Range: 5-40 HDL Cholesterol 35 mg/dL (Abnormal) Triglycerides 181 mg/dL (Abnormal) Range: 0-149 Cholesterol, Total 220 mg/dL (Abnormal) Range: 100-199 58-Zdj-054488:47 Microscopic Examination Comments: PATIENT WAS FASTINGPERFORMED BY: [facility] Ruuwux2519 [facility] [id number] Bacteria Few (Normal) Mucus Threads Present (Normal) Epithelial Cells (non renal) 0-10 {/hpf} (Normal) Range: 0 - 10 RBC 0-2 {/hpf} (Normal) Range: 0 - 2 WBC 0-5 {/hpf} (Normal) Range: 0 - 5 :53 AFP, Tumor Marker Comments: FAX AFP RESULTS TO [phone] Patient ? NComments: ALPHA FETOPROTIEN,SERUM RTLabCorp (refer to report for specific site)refer to report for address and phone number AFP TUMOR 2253 3.1 ng/mL (Normal) Range: 0.0-8.3 Comments: Melodie ECLIA methodology :53 Basic Metabolic Profile (BMP) Comments: Comments: ALPHA FETOPROTIEN,SERUM RTOhio [facility] [address]fncjirwnc[address] [place], [address] GAP 5 (Normal) Range: 5-15 CO2 29.0 [...] :53 Liver Profile Comments: Comments: ALPHA FETOPROTIEN,SERUM [facility] [address]xlh[address] [place], [place], [address] D BILI 0.24 mg/dL (Normal) Range: 0.00-0.30 T BILI 1.10 mg/dL (Abnormal) Range: 0.20-1.00 ALT 30 U/L (Normal) Range: 12-78 ALK P 85 U/L (Normal) Range: 45-117 AST 17 U/L (Normal) Range: 15-37 GLOB 3.5 g/dL (Normal) Range: 2.3-3.5 ALB 3.9 g/dL (Normal) Range: 3.4-5.0 T PROT 7.4 g/dL (Normal) Range: 6.4-8.2 :53 Phosphorus Comments: Comments: ALPHA FETOPROTIEN,SERUM [facility] [address] [place], [address] PHOS 2.6 mg/dL (Normal) Range: 2.5-4.9 :53 Prothrombin Time w/INR Comments: [facility] [address]uru[address] [place], [place], [address] INR 1.1 (Normal) PROTIME 13.7 s (Normal) Range: 11.7-14.9 :47 TSH (86898) Comments: PATIENT WAS FASTINGPERFORMED BY: [facility]eneIn[facility] VinelandDyxpes2197 [facility] [id number] TSH 1.580 {uIU/mL} (Normal) Range: 0.450-4.500 :47 URINALYSIS, W/ MICRO (40937) Comments: PATIENT WAS FASTINGPERFORMED BY: [facility] CastleSaint [facility] Aurora Community HospitalIccnpx4444 [facility] [id number] Microscopic Examination See below: (Normal) Comments: Microscopic was indicated and was performed. Microscopic Examination MICRON (Normal) Comments: Microscopic follows if indicated. Nitrite, Urine Negative (Normal) Urobilinogen,Semi-Qn 0.2 mg/dL (Normal) Range: 0.2-1.0 Bilirubin Negative (Normal) Occult Blood Negative (Normal) Ketones Negative (Normal) Glucose Negative (Normal) Protein Negative (Normal) WBC Esterase Negative (Normal) Appearance Clear (Normal) Urine-Color Yellow (Normal) pH 5.5 (Normal) Range: 5.0-7.5 Specific [place] 1.026 (Normal) Range: 1.005-1.030 :47 MICROALBUMIN: CREATININE RATIO Comments: PATIENT WAS FASTINGPERFORMED BY: OxigeneFort Defiance Indian HospitalSoehlj1987 [facility] [id number] (79689) AND (20959) Microalb/Creat Ratio 3.1 {mg/g_creat} (Normal) Range: 0.0-30.0 Microalbumin, Urine 5.4 ug/mL (Normal) Creatinine, Urine 172.4 mg/dL (Normal) :47 METABOLIC PANEL, COMPREHENSIVE Comments: PATIENT WAS FASTINGPERFORMED BY: [facility]6370 [facility] [id number] (90481) ALT (SGPT) 19 [iU]/L (Normal) Range: 0-44 [...] Glucose, Serum 99 mg/dL (Normal) Range: 65-99 83-Vpn-999036:47 CBC W/AUTO DIFF WBC (37903) Comments: PATIENT WAS FASTINGPERFORMED BY: [facility]CoIn[facility] VinelandRrjrli0073 [facility] [id number] Immature Grans (Abs) 0.0 {x10E3/uL} (Normal) Range: [...] 4.14-5.80 WBC 4.9 {x10E3/uL} (Normal) Range: 3.4-10.8 :47 LIPID PANEL (28846) Comments: PATIENT WAS FASTINGPERFORMED BY: [facility]Co[facility] VinelandKzzwxs8270 [facility] [id number]; will review on 05/22 LDL/HDL Ratio 3.6 [...] Cholesterol, Total 184 mg/dL (Normal) Range: 100-199 :09 PSA,Total- Diagnostic Comments: [facility] [address] [place], [place], [address] PSA, DIAGNOSTIC 6.85 ng/mL (Abnormal) Range: 0.0-4.0 Comments: This test was performed using the TPSA assay method for theSamEnrico chemistry system. Values obtained with differentassay methods cannot be used interchangably.When changing PSA assays in the course of monitoring apatient, additional sequential testing should be carriedout to confirm baseline values. :53 AFP, Tumor Marker Comments: Is Patient ? NComments: N/ALabCorp (refer to report for specific site)refer to report for address and phone number AFP TUMOR 2253 2.1 ng/mL (Normal) Range: 0.0-8.3 Comments: Melodie ECLIA methodologyPerformed at: - LabCo[address] [id number] Director: Josef Ventura PhD, Phone: [phone] 0-Pec-083278:53 Basic Metabolic Profile (BMP) Comments: Comments: [facility] [address] [place], [address] GAP 8 (Normal) Range: 5-15 CO2 26.0 [...] Range: 70-110 :53 Liver Profile Comments: Comments: [facility] [address] [place], [address] D BILI 0.23 mg/dL (Normal) Range: 0.00-0.30 T BILI 1.00 mg/dL (Normal) Range: 0.20-1.00 ALT 26 U/L (Normal) Range: 12-78 ALK P 98 U/L (Normal) Range: 45-117 AST 19 U/L (Normal) Range: 15-37 GLOB 3.8 g/dL (Abnormal) Range: 2.3-3.5 ALB 3.9 g/dL (Normal) Range: 3.4-5.0 T PROT 7.7 g/dL (Normal) Range: 6.4-8.2 :53 Phosphorus Comments: Comments: [facility] [address]laofcfemj[address] [place], [place], [address] PHOS 2.3 mg/dL (Abnormal) Range: 2.5-4.9 :53 Prothrombin Time w/INR Comments: [facility] [address] [place], [place], [address] INR 1.1 (Normal) PROTIME 13.4 s (Normal) Range: 11.7-14.9 93-Ydz-916821:24 MICROALBUMIN: CREATININE RATIO Comments: PATIENT WAS FASTINGPERFORMED BY: [employer]70 [facility] [id number] ([id number]) AND (98090) Microalb/Creat Ratio 5.7 {mg/g_creat} (Normal) Range: 0.0-30.0 Microalbumin, Urine 9.7 ug/mL (Normal) Creatinine, Urine 169.8 mg/dL (Normal) 90-Ehx-102872:24 VITAMIN B12 AND FOLATES Comments: PATIENT WAS FASTINGPERFORMED BY: [employer]6370 [facility] [id number] (52759) Folate (Folic Acid), Serum >20.0 ng/mL (Normal) Comments: A serum folate concentration of less than 3.1 ng/mL isconsidered to represent clinical deficiency. Vitamin B12 323 pg/mL (Normal) Range: 211-946 39-Qkq-779219:24 CALCIFEDIOL (75140) Comments: PATIENT WAS FASTINGPERFORMED BY: [employer]6370 [facility] [id number] Vitamin D, 25-Hydroxy 33.2 ng/mL (Normal) Range: 30.0-100.0 Comments: Vitamin D deficiency has been defined by the Blue Diamond ofMedicine and an Endocrine Society practice guideline as alevel of serum 25-OH vitamin D less than 20 ng/mL (1,2).The Endocrine Society went on to further define vitamin Dinsufficiency as a level between 21 and 29 ng/mL (2).1. IOM (Blue Diamond of Medicine). 2010. Dietary reference intakes for calcium and D. [place]: The National Academies Press.2. Reuben MF, Stephanie CLARK, Radha MILLIGAN, et al. Evaluation, treatment, and prevention of vitamin D deficiency: an Endocrine Society clinical practice guideline. JCEM. 2010; 96(7):1911-30. 00-Tql-183065:24 TSH (THYROID STIMULATING Comments: PATIENT WAS FASTINGPERFORMED BY: [employer] [place] [id number] HORMONE) (17658) TSH 2.410 {uIU/mL} (Normal) Range: 0.450-4.500 :24 LIPID PANEL (29462) Comments: PATIENT WAS FASTINGPERFORMED BY: Effective MeasureFormerly [facility] [id number] LDL/HDL Ratio 3.7 {ratio_units} (Abnormal) Range: 0.0-3.6 Comments: LDL/HDL Ratio Men Women 1/2 Avg.Risk 1.0 1.5 Av g.Risk 3.6 3.2 2X Avg.Risk 6.2 5.0 3X Avg.Risk 8.0 6.1 LDL Cholesterol Calc 130 mg/dL (Abnormal) Range: 0-99 VLDL Cholesterol Elvin 22 mg/dL (Normal) Range: 5-40 HDL Cholesterol 35 mg/dL (Abnormal) Triglycerides 109 mg/dL (Normal) Range: 0-149 Cholesterol, Total 187 mg/dL (Normal) Range: 100-199 :24 METABOLIC PANEL, COMPREHENSIVE Comments: PATIENT WAS FASTINGPERFORMED BY: Effective MeasureFormerly [facility] [id number] ([id number]) ALT (SGPT) 30 [iU]/L (Normal) Range: 0-44 [...] Glucose, Serum 99 mg/dL (Normal) Range: 65-99 47-Dqd-506813:24 CBC, PLATELETS & AUT DIFF Comments: PATIENT WAS FASTINGPERFORMED BY: [facility] Rycewo0298 [facility] [id number]; fu 4-24 KF (73011) Immature Grans (Abs) 0.0 {x10E3/uL} (Normal) Range: [...] 2253 2.6 ng/mL (Normal) Range: 0.0-8.3 Comments: [employer] ECLIA methodologyPerformed at: [facility] [address] [id number] Director: Josef Ventura PhD, Phone: [phone] 46-Hpq-14171:30 Bilirubin, Direct Comments: [facility] Dpotlktkzb[address] [facility] [address] [place], [address] D BILI 0.29 mg/dL (Normal) Range: 0.00-0.30 13-Dsc-53258:30 Comprehensive Metabolic Profil Comments: [facility] Hwzgdofzdz[address] [place], [place], [address] GAP 8 (Normal) Range: 5-15 CO2 26.0 [...] 7-18 GLU 102 mg/dL (Normal) Range: 70-110 48-Ogp-02640:30 Phosphorus Comments: [facility] Xyffhazgap5045 [facility]. [place], [place], [address] PHOS 2.4 mg/dL (Abnormal) Range: 2.5-4.9 :30 Prothrombin Time w/INR Comments: [facility] Zlsjvvcjgn6924 [facility]. [place], [place], [address] INR 1.1 (Normal) PROTIME 13.4 s (Normal) Range: 11.7-14.9 :35 CALCIFEDIOL (97943) Comments: PATIENT WAS FASTINGPERFORMED BY: [facility] VinelandUadbdb9406 [facility] [id number] Vitamin D, 25-Hydroxy 45.6 ng/mL (Normal) Range: 30.0-100.0 Comments: Vitamin D deficiency has been defined by the [place] ofMedicine and an Endocrine Society practice guideline as alevel of serum 25-OH vitamin D less than 20 ng/mL (1,2).The Endocrine Society went on to further define vitamin Dinsufficiency as a level between 21 and 29 ng/mL (2).1. IOM ([place] of Medicine). 2010. Dietary reference intakes for calcium and D. [place]: The National Academies Press.2. Reuben MF, Stephanie LCARK, Radha MILLIGAN, et al. Evaluation, treatment, and prevention of vitamin D deficiency: an Endocrine Society clinical practice guideline. JCEM. 2010; 96(7):1911-30. :35 METABOLIC PANEL, COMPREHENSIVE Comments: PATIENT WAS FASTINGPERFORMED BY: [facility] VinelandAovejs8855 [facility] [id number] (80302) ALT (SGPT) 18 [iU]/L (Normal) Range: 0-44 [...] mg/dL (Abnormal) Range: 65-99 :35 LIPID PANEL (21019) Comments: PATIENT WAS FASTINGPERFORMED BY: [facility]Co[place] 1809270 [facility] [id number] LDL/HDL Ratio 4.4 {ratio_units} (Abnormal) Range: 0.0-3.6 Comments: LDL/HDL Ratio Men Women 1/2 Avg.Risk 1.0 1.5 Av g.Risk 3.6 3.2 2X Avg.Risk 6.2 5.0 3X Avg.Risk 8.0 6.1 LDL Cholesterol Calc 151 mg/dL (Abnormal) Range: 0-99 VLDL Cholesterol Elvin 33 mg/dL (Normal) Range: 5-40 HDL Cholesterol 34 mg/dL (Abnormal) Triglycerides 165 mg/dL (Abnormal) Range: 0-149 Cholesterol, Total 218 mg/dL (Abnormal) Range: 100-199 30-Rxt-738442:13 PSA,Total- Diagnostic Comments: [facility] [address] [place], [address] PSA, DIAGNOSTIC 6.86 ng/mL (Abnormal) Range: 0.0-4.0 Comments: This test was performed using the TPSA assay method for Lightspeed chemistry system. Values obtained with differentassay methods cannot be used interchangably.When changing PSA assays in the course of monitoring apatient, additional sequential testing should be carriedout to confirm baseline values. 66-Mau-872089:29 HgA1C , Office (67703) HgA1C , Office 5.6 % (Normal) Range: 4.6 - 7.1 :19 AFP, Tumor Marker Comments: Is Patient ? [facility] (refer to report for specific site)refer to report for address and phone number AFP TUMOR 2253 3.8 ng/mL (Normal) Range: 0.0-8.3 Comments: Melodie ECLIA methodologyPerformed at: - [facility]Co[address] [id number] Director: Josef Ventura PhD, Phone: [phone] 53-Rpw-47518:19 Basic Metabolic Profile (BMP) Comments: [facility] Ynssbplnxe3942 [facility]. [place], [place], [address] GAP 6 (Normal) Range: 5-15 CO2 27.0 [...] 7-18 GLU 92 mg/dL (Normal) Range: 70-110 16-Uga-63724:19 CBC W/Diff, Automated Comments: [facility] Rodposumsp3265 [facility]. [place], [place], [address] Absolute Lymph 2.14 {X10_3/ul} (Normal) Range: 0.83-4.51 [...] (Normal) Range: 4.4-11.0 :19 Liver Profile Comments: [facility] [address] [place], [place], [address] D BILI 0.21 mg/dL (Normal) Range: 0.00-0.30 T BILI 1.50 mg/dL (Abnormal) Range: 0.20-1.00 ALT 23 U/L (Normal) Range: 12-78 ALK P 89 U/L (Normal) Range: 50-136 AST 15 U/L (Normal) Range: 15-37 GLOB 3.6 g/dL (Abnormal) Range: 2.3-3.5 ALB 3.7 g/dL (Normal) Range: 3.4-5.0 T PROT 7.3 g/dL (Normal) Range: 6.4-8.2 :19 Phosphorus Comments: [facility] [address] [place], [place], [address] PHOS 2.5 mg/dL (Normal) Range: 2.5-4.9 :19 Prothrombin Time w/INR Comments: [facility] Prexmfbtaq9[address] [facility] [place], [address] INR 1.1 (Normal) PROTIME 13.6 s (Normal) Range: 11.7-14.9 45-Yak-157160:21 VITAMIN B12 AND FOLATES Comments: PATIENT WAS FASTINGPERFORMED BY: [facility] VinelandJrnepj3923 [facility] [id number] (35290) Folate (Folic Acid), Serum >20.0 ng/mL (Normal) Comments: A serum folate concentration of less than 3.1 ng/mL isconsidered to represent clinical deficiency. Vitamin B12 358 pg/mL (Normal) Range: 211-946 57-Tbb-329607:21 CALCIFEDIOL (90663) Comments: PATIENT WAS FASTINGPERFORMED BY: Range Fuels6370 [facility] [id number] Vitamin D, 25-Hydroxy 18.2 ng/mL (Abnormal) Range: 30.0-100.0 Comments: Vitamin D deficiency has been defined by the [place] ofMedicine and an Endocrine Society practice guideline as alevel of serum 25-OH vitamin D less than 20 ng/mL (1,2).The Endocrine Society went on to further define vitamin Dinsufficiency as a level between 21 and 29 ng/mL (2).1. IOM ([place] of Medicine). 2010. Dietary reference intakes for calcium and D. [place]: The National Academies Press.2. Reuben MF, Stephanie CLARK, Radha MILLIGAN, et al. Evaluation, treatment, and prevention of vitamin D deficiency: an Endocrine Society clinical practice guideline. JCEM. 2010; 96(7):1911-30. 17-Ett-771803:21 LIPID PANEL (18300) Comments: PATIENT WAS FASTINGPERFORMED BY: Range [employer]els6370 [facility] [facility] [id number] VLDL Cholesterol Elvin VLDLCH mg/dL (Normal) Range: [...] Cholesterol, Total 262 mg/dL (Abnormal) Range: 100-199 :21 METABOLIC PANEL, COMPREHENSIVE Comments: PATIENT WAS FASTINGPERFORMED BY: [employer]els6370 [facility] [id number] (69595) ALT (SGPT) 17 [iU]/L (Normal) Range: 0-44 [...] Glucose, Serum 102 mg/dL (Abnormal) Range: 65-99 74-Iei-529029:21 CBC, PLATELETS & AUT DIFF Comments: PATIENT WAS FASTINGPERFORMED BY: [facility] Kxxcjx9930 [facility] [id number] (08850) Immature Grans (Abs) 0.0 {x10E3/uL} (Normal) Range: [...] Microscopic Examination Comments: PATIENT WAS FASTINGPERFORMED BY: [facility] VinelandHtuyrh8691 [facility] [id number] Bacteria None seen (Normal) Mucus Threads Present (Normal) Epithelial Cells (non renal) 0-10 {/hpf} (Normal) Range: 0 - 10 RBC 0-2 {/hpf} (Normal) Range: 0 - 2 WBC 0-5 {/hpf} (Normal) Range: 0 - 5 :22 Basic Metabolic Profile (BMP) Comments: PLEASE ADD LIVER TO BLOOD FROM THIS MORNINGOhio [facility] [address]tmmiemzdl47[address] [place], [place], [address] GAP 6 (Normal) Range: 5-15 CO2 28.0 [...] 7-18 GLU 97 mg/dL (Normal) Range: 70-110 :22 CBC W/Diff, Automated Comments: [facility] [address] [place], [place], [address] Absolute Lymph 2.03 {X10_3/ul} (Normal) Range: 0.83-4.51 [...] PLEASE ADD LIVER TO BLOOD FROM THIS [facility] Qinpyfccun[address] [place], [place], [address] D BILI 0.23 mg/dL (Normal) Range: 0.00-0.30 T BILI 1.60 mg/dL (Abnormal) Range: 0.20-1.00 ALT 27 U/L (Normal) Range: 12-78 ALK P 95 U/L (Normal) Range: 50-136 AST 17 U/L (Normal) Range: 15-37 GLOB 3.6 g/dL (Abnormal) Range: 2.3-3.5 ALB 3.9 g/dL (Normal) Range: 3.4-5.0 T PROT 7.5 g/dL (Normal) Range: 6.4-8.2 :22 Phosphorus Comments: PLEASE ADD LIVER TO BLOOD FROM THIS [facility] Vonbquvopf[address] [place], [place], [address] PHOS 2.5 mg/dL (Normal) Range: 2.5-4.9 :22 Prothrombin Time w/INR Comments: [facility] [address]nlqxtm[address] [place], [place], [address] INR 1.1 (Normal) PROTIME 13.6 s (Normal) Range: 11.7-14.9 :49 URINALYSIS, W/ MICRO (72095) Comments: PATIENT WAS FASTINGPERFORMED BY: [facility] VinelandWpcbrp2626 [facility] [id number] Microscopic Examination See below: (Normal) Comments: Microscopic was indicated and was performed. Microscopic Examination MICRON (Normal) Comments: Microscopic follows if indicated. Nitrite, Urine Negative (Normal) Urobilinogen,Semi-Qn 0.2 mg/dL (Normal) Range: 0.2-1.0 Bilirubin Negative (Normal) Occult Blood Negative (Normal) Ketones Trace (Abnormal) Glucose Negative (Normal) Protein Negative (Normal) WBC Esterase Negative (Normal) Appearance Clear (Normal) Urine-Color Yellow (Normal) pH 6.0 (Normal) Range: 5.0-7.5 Specific [place] 1.030 (Normal) Range: 1.005-1.030 :49 CBC W/AUTO DIFF WBC Comments: PATIENT WAS FASTINGPERFORMED BY: [facility] Belwma6181 [facility] [id number] Information: [id number] (44920) Immature Grans (Abs) 0.0 {x10E3/uL} (Normal) Range: [...] {x10E3/uL} (Normal) Range: 3.4-10.8 :49 LIPID PANEL (06252) Comments: PATIENT WAS FASTINGPERFORMED BY: [facility] Uxpwdh8527 [facility] [id number] LDL/HDL Ratio 4.5 {ratio_units} (Abnormal) Range: 0.0-3.6 [...] PANEL, COMPREHENSIVE Comments: PATIENT WAS FASTINGPERFORMED BY: [employer]els6370 [facility] [id number] (98727) ALT (SGPT) 15 [iU]/L (Normal) Range: 0-44 [...] Glucose, Serum 101 mg/dL (Abnormal) Range: 65-99 69-Wuq-900484:17 Serum Creatinine AND GFR Comments: [facility] [address]ucwqunoq[address] [place], [place], [address] EST GFR - AA 97 mL/min (Normal) Comments: GFR Calc EST GFR 80 mL/min (Normal) Comments: Non- GFR Calc CREAT,SERUM 0.98 mg/dL (Normal) Range: 0.70-1.30 Comments: The validity of the calculated GFR AND GFRAA in patients over70 years has not been determined. Clinical correlation isessential. :03 METABOLIC PANEL, Comments: PATIENT WAS FASTINGPERFORMED BY: [facility] VinelandAqdvae3827 [facility] [id number] Information: [id number] COMPREHENSIVE (34830) ALT (SGPT) 22 [iU]/L (Normal) Range: 0-44 [...] (PROSTATE SPECIFIC Comments: PATIENT WAS FASTINGPERFORMED BY: [facility]6370 [facility] [id number] ANTIGEN) (V76.44) Prostate Specific Ag, 4.5 ng/mL (Abnormal) Range: 0.0-4.0 Serum Comments: [employer] ECLIA methodology. .According to the [place] U[employer] Association, Serum PSA shoulddecrease and remain at undetectable levels after radicalprostatectomy. The AUA defines biochemical recurrence as an initialPSA value 0.2 ng/mL or greater followed by a subsequent confirmatoryPSA value 0.2 ng/mL or greater.Values obtained with d ifferent assay methods or kits cannot be usedinterchangeably. Results cannot be interpreted as absolute evidenceof the presence or absence of malignant disease. 00-Pqv-187357:38 CBC-Complete Blood Cnt No Diff Comments: [facility] [address]owgin[address] [place], [address] MPV 10.0 fL (Normal) Range: 6.2-12.0 PLT [...] 4.6-6.2 WBC 5.9 K/mm3 (Normal) Range: 4.4-11.0 :38 Comprehensive Metabolic Profil Comments: [facility] [address] [place], [place], [address] GAP 7 (Normal) Range: 5-15 CO2 27.0 [...] 7-18 GLU 95 mg/dL (Normal) Range: 70-110 :38 Partial Thromboplast Time Comments: [facility] [address]ymf[address]unzgq[address] [place], [address] PTT 34.2 s (Normal) Range: 24.1-36.2 :38 Prothrombin Time w/INR Comments: [facility] [address]ihz[address]qj[address] [place], [place], [address] INR 1.1 (Normal) PROTIME 14.0 s (Normal) Range: 11.7-14.9 16-Plr-173141:47 CBC-Complete Blood Cnt No Diff Comments: [facility] Xterxkqdbd9[address] [place], [place], [address] MPV 10.4 fL (Normal) Range: 6.2-12.0 PLT [...] 4.6-6.2 WBC 5.4 K/mm3 (Normal) Range: 4.4-11.0 40-Fme-746405:47 Comprehensive Metabolic Profil Comments: [facility] [address]fqjmi[address] [place], [place], [address] GAP 7 (Normal) Range: 5-15 CO2 28.0 [...] 7-18 GLU 86 mg/dL (Normal) Range: 70-110 :47 Partial Thromboplast Time Comments: [facility] [address] [place], [place], [address] PTT 35.1 s (Normal) Range: 24.1-36.2 :47 Prothrombin Time w/INR Comments: [facility] [address] [place], [address] INR 1.0 (Normal) PROTIME 13.1 s (Normal) Range: 11.7-14.9 :23 CBC W/Diff, Automated Comments: Test performed at:[facility] [address] [place], [place] [address] Absolute Lymph 1.72 {X10_3/ul} (Normal) Range: 0.83-4.51 [...] 07-Apr-20158:23 Comprehensive Metabolic Profil Comments: Test performed at:[facility] [address]ptqffjw[address] [place], [place] [address] GAP 10 (Normal) Range: 5-15 CO2 26.0 [...] Comments: Please note revised CREATININE reference range gwthyfbwt06/22/2015. BUN 12 mg/dL (Normal) Range: 7-18 GLU 132 mg/dL (Abnormal) Range: 70-110 Comments: Fasting Glucose result greater than or equal to 126 mg/dLsuggests DIABETES MELLITUS per A.D.A. criteria. 07-Apr-20158:23 Prothrombin Time w/INR Comments: Test performed at:[facility] [address] [place] [address] INR 1.0 (Normal) PROTIME 13.7 s (Normal) Range: 11.7-14.9 4-Mue-051162:25 AFP, Tumor Marker Comments: Is Patient ? NTest performed at:[facility] [address] [place] [address] AFP TUMOR 2253 578.5 ng/mL (Abnormal) Range: 0.0-8.3 Comments: Melodie ECLIA methodologyPerformed at: [facility] [address]ig[address] [id number] Director: Toy Walls MD, Phone: [phone] at: [facility] [place] [id number] Director: Lalo Murphy PhD, Phone: [phone] 4-Wmg-920366:25 Hepatitis B C Genotype Comments: Is Patient ? NTest performed at:[facility] [address] [place], [place] [address] COMMENT Comment (Normal) Comments: This test was developed and its performance characteristicsdetermined by [employer]. It has not been cleared or approvedby [...] HEP C GENOTYPE Test not performed (Normal) 4-Hib-121218:25 Hepatitis C,RNA PCR Viral Load Comments: Is Patient ? NTest performed at:[facility] Xerdgalqbh5[address] [address] TEST INFO: Comment (Normal) Comments: The quantitative [...] Not Detected {IU/mL} (Normal) :14 LIPID PANEL (13810) Comments: PATIENT WAS FASTINGPERFORMED BY: aBIZinaBOX [facility] [id number]; non-emergent till apt LDL/HDL Ratio 6.1 {ratio_units} [...] Cholesterol, Total 258 mg/dL (Abnormal) Range: 100-199 :14 METABOLIC PANEL, Comments: PATIENT WAS FASTINGPERFORMED BY: aBIZinaBOX [facility] [id number] Information: [id number] COMPREHENSIVE (79936) ALT (SGPT) 27 [iU]/L (Normal) Range: 0-44 [...] Glucose, Serum 98 mg/dL (Normal) Range: 65-99 56-Uvs-38718:04 EBV Panel (74830) Comments: PATIENT NOT FASTINGPERFORMED BY: [facility] Uiuslv8827 [facility] [id number] Information: [id number] Interpretation: [facility] (Normal) Comments: EBV Interpretation Chart . Interpretation [...] Microscopic Examination Comments: PATIENT WAS FASTINGPERFORMED BY: Biexdiao.comUNC [facility] [id number] Bacteria None seen (Normal) Mucus Threads Present (Normal) Epithelial Cells (non renal) None seen {/hpf} (Normal) Range: 0 - 10 RBC 0-2 {/hpf} (Normal) Range: 0 - 2 WBC 0-5 {/hpf} (Normal) Range: 0 - 5 :06 PSA (PROSTATE SPECIFIC Comments: PATIENT WAS FASTINGPERFORMED BY: Effective MeasureFormerly [facility] [id number] ANTIGEN) (V76.44) Prostate Specific Ag, 3.8 ng/mL (Normal) Range: 0.0-4.0 Serum Comments: [employer] ECLIA methodology. .According to the [place] Urological Association, Serum PSA shoulddecrease and remain [...] of malignant disease. :06 URINALYSIS, W/ MICRO (06146) Comments: PATIENT WAS FASTINGPERFORMED BY: [employer]70 AccuSiliconUNC Health [facility] [id number] Microscopic Examination See below: (Normal) Comments: Microscopic was indicated and was performed. Microscopic Examination MICRON (Normal) Comments: Microscopic follows if indicated. Nitrite, Urine Negative (Normal) Urobilinogen,Semi-Qn 0.2 mg/dL (Normal) Range: 0.0-1.9 Bilirubin Negative (Normal) Occult Blood Negative (Normal) Ketones Negative (Normal) Glucose Negative (Normal) Protein Negative (Normal) WBC Esterase Negative (Normal) Appearance Clear (Normal) Urine-Color Yellow (Normal) pH 6.5 (Normal) Range: 5.0-7.5 Specific [place] 1.019 (Normal) Range: 1.005-1.030 07-Apr-20148:06 CBC WITH MANUAL DIFF Comments: PATIENT WAS FASTINGPERFORMED BY: [facility]6370 [facility] [id number] Information: [id number] (92282) Immature Grans (Abs) 0.0 {x10E3/uL} (Normal) Range: [...] PANEL, COMPREHENSIVE Comments: PATIENT WAS FASTINGPERFORMED BY: [facility]Co[facility] VinelandJrvuuk8782 [facility] [id number] (47498) ALT (SGPT) 21 [iU]/L (Normal) Range: 0-44 [...] Glucose, Serum 94 mg/dL (Normal) Range: 65-99 :06 LIPID PANEL (89177) Comments: PATIENT WAS FASTINGPERFORMED BY: [facility] TherapeuticsCarondelet Health [id number] LDL/HDL Ratio 4.4 {ratio_units} (Abnormal) Range: 0.0-3.6 LDL Cholesterol Calc 122 mg/dL (Abnormal) Range: 0-99 VLDL Cholesterol Elvin 43 mg/dL (Abnormal) Range: 5-40 HDL Cholesterol 28 mg/dL (Abnormal) Comments: According to ATP-III Guidelines, HDL-C >59 mg/dL is considered anegative risk factor for CHD. Triglycerides 216 mg/dL (Abnormal) Range: 0-149 Cholesterol, Total 193 mg/dL (Normal) Range: 100-199 8-Yyz-351872:41 VARICELLA-ZOSTER ANTBODY Comments: PATIENT NOT FASTINGPERFORMED BY: aBIZinaBOX [facility] [id number] Information: [id number] (91425) Varicella Zoster IgG 2.01 {index} (Normal) Comments: Nonimmune <0.91 Equivocal 0.91 - 1.09 Immune >1.09 :37 Microscopic Examination Comments: PATIENT WAS FASTINGPERFORMED BY: aBIZinaBOX [facility] [id number] Bacteria None seen (Normal) Mucus Threads Present (Normal) Epithelial Cells (non renal) 0-10 {/hpf} (Normal) Range: 0 - 10 RBC 0-3 {/hpf} (Normal) Range: 0 - 3 WBC 0-5 {/hpf} (Normal) Range: 0 - 5 :37 URINALYSIS, W/ MICRO (03481) Comments: PATIENT WAS FASTINGPERFORMED BY: RayspanInspira Medical Center VinelandYdmwzg1586 [facility] [id number] Microscopic Examination See below: (Normal) Microscopic Examination MICRON (Normal) Comments: Microscopic follows if indicated. Nitrite, Urine Negative (Normal) Urobilinogen,Semi-Qn 1.0 mg/dL (Normal) Range: 0.0-1.9 Bilirubin Negative (Normal) Occult Blood Negative (Normal) Ketones Negative (Normal) Glucose Negative (Normal) Protein Negative (Normal) WBC Esterase Negative (Normal) Appearance Clear (Normal) Urine-Color Yellow (Normal) pH 6.0 (Normal) Range: 5.0-7.5 Specific [place] 1.021 (Normal) Range: 1.005-1.030 :37 CBC WITH MANUAL DIFF Comments: PATIENT WAS FASTINGPERFORMED BY: RayspanInspira Medical Center VinelandBgccrv8519 [facility] [id number] Information: [id number] (67698) Immature Grans (Abs) 0.0 {x10E3/uL} (Normal) Range: [...] of these values in the reference population. :37 PSA (PROSTATE SPECIFIC Comments: PATIENT WAS FASTINGPERFORMED BY: [facility]6370 [facility] [id number] ANTIGEN) (V76.44) Prostate Specific Ag, 3.6 ng/mL (Normal) Range: 0.0-4.0 Serum Comments: [employer] ECLIA methodology. .According to the [place] U[employer] Association, Serum PSA shoulddecrease and remain at undetectable levels after radicalprostatectomy. The AUA defines biochemical recurrence as an initialPSA value 0.2 ng/mL or greater followed by a subsequent confirmatoryPSA value 0.2 ng/mL or greater.Values obtained with d ifferent assay methods or kits cannot be usedinterchangeably. Results cannot be interpreted as absolute evidenceof the presence or absence of malignant disease. :37 LIPID PANEL (97115) Comments: PATIENT WAS FASTINGPERFORMED BY: OxigeneInspira Medical Center VinelandLeqwcq5485 [facility] [id number] LDL/HDL Ratio 4.8 {ratio_units} (Abnormal) Range: 0.0-3.6 [...] PANEL, COMPREHENSIVE Comments: PATIENT WAS FASTINGPERFORMED BY: [employer] Vifuna1568 [facility] [id number] (19846) ALT (SGPT) 19 [iU]/L (Normal) Range: 0-44 [...] Glucose, Serum 94 mg/dL (Normal) Range: 65-99 37-Hzc-193780:43 PPD (51096) Comments: PT RECEIVED THIS AT WORK SKIN TEST INTRADERMAL TB negatvie (Normal) Comments: pt received this at work :33 LIPID PANEL (99974) Comments: PATIENT WAS FASTINGPERFORMED BY: OxigeneInspira Medical Center VinelandSyuanc2117 [facility] [id number] LDL/HDL Ratio 3.8 {ratio_units} (Abnormal) Range: 0.0-3.6 [...] METABOLIC PANEL, Comments: PATIENT WAS FASTINGPERFORMED BY: [employer]6370 [facility] [id number] Information: [id number] COMPREHENSIVE (80715) ALT (SGPT) 21 [iU]/L (Normal) Range: 0-55 [...] CHOL 193 mg/dL (Normal) Comments: <200 mg/dL Qhxwtgver517-530 mg/dL Borderline>240 mg/dL High Risk :27 BMP [...] Plan of Care Name Dates Details Instructions Physical exam WITHOUT abnormal findings (Renamed from [...] Indication: Prostate cancer Prostate cancer : Reviewed [employer] Letter Indication: Prostate cancer Hypertensive heart disease [...] Indication: Mixed hyperlipidemia Prostate cancer : Reviewed [employer] Letter Indication: Prostate cancer Hypertensive 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 heart failure : HTN/CAD Red Flags Indication: Hypertensive 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 heart failure Mixed hyperlipidemia : Cholesterol mgmt Indication: Mixed hyperlipidemia Mixed hyperlipidemia : Follow up in 6 months Indication: Mixed hyperlipidemia Prostate cancer : Reviewed [employer] Letter- urologist - dr Miller Indication: Prostate cancer Hypertensive 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 heart failure : HTN/CAD Red Flags Indication: Hypertensive 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 heart failure Mixed hyperlipidemia : Cholesterol mgmt Indication: Mixed hyperlipidemia Hepatocellular carcinoma : Reviewed Lab Indication: Hepatocellular carcinoma Encounter for screening for malignant neoplasm of prostate (Renamed from Screening for prostate cancer) : Reviewed [employer] Letter Indication: Encounter for screening for malignant [...] without heart failure Prostate cancer : Reviewed [employer] Letter- Dr Miller Indication: Prostate cancer Mixed hyperlipidemia : Cholesterol mgmt Indication: Mixed hyperlipidemia Hepatocellular carcinoma : Reviewed Lab: nornmal alpha feta prot Indication: Hepatocellular carcinoma Hepatocellular carcinoma : Reviewed [employer] Letter Indication: Hepatocellular carcinoma Hepatocellular carcinoma : Reviewed Diagnostic Tests Indication: Hepatocellular carcinoma Prostate cancer : Reviewed Lab Indication: Prostate cancer Prostate cancer : Reviewed [employer] Letter Indication: Prostate cancer Prostate cancer : [...] Leg swelling Depression : follow up with [facility] 10 days Indication: Depression Sinusitis, [...] 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 heart failure Planned Observations TSH ([id number])Indication: Mixed hyperlipidemia On: Request URINALYSIS, W/ MICRO ([id number])Indication: Hypertensive 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 heart failure On: Request MICROALBUMIN: CREATININE RATIO ([id number]) AND ([id number])Indication: Hypertensive 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 heart failure On: Request METABOLIC PANEL, COMPREHENSIVE ([id number])Indication: Hypertensive 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 heart failure On: Request CBC W/AUTO DIFF WBC ([id number])Indication: Hypertensive 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 heart failure On: Request LIPOPROTEIN, BLD, BY NMR ([id number])Indication: Mixed hyperlipidemia On: 77-Cwv-05364:01 Request CALCIFEDIOL ([id number])Indication: Vitamin D deficiency On: :01 Request LIPID PANEL ([id number])Indication: Mixed hyperlipidemia On: :07 Request METABOLIC PANEL, COMPREHENSIVE ([id number])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 On: :07 Request CBC W/AUTO DIFF WBC ([id number])Indication: Lymphocytosis On: :07 Request LIPID PANEL ([id number])Indication: Hypertensive 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 heart failure On: 9-Wnd-234607:39 Request METABOLIC PANEL, COMPREHENSIVE ([id number])Indication: Hypertensive 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 heart failure On: 3-Ldw-464295:39 Request METABOLIC PANEL, COMPREHENSIVE ([id number])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 On: :08 Request HEPATIC FUNCTION PANEL ([id number])Indication: Mixed hyperlipidemia On: 05-Fht-276128:53 Request LIPID PANEL ([id number])Indication: Mixed hyperlipidemia On: 01-Dac-623122:52 Request METABOLIC PANEL, COMPREHENSIVE ([id number])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 On: :09 Request LIPID PANEL ([id number])Indication: Mixed hyperlipidemia On: 51-Fby-100973:09 Request METABOLIC PANEL, COMPREHENSIVE ([id number])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 On: 33-Bsl-844755:55 Request LIPID PANEL ([id number])Indication: Mixed hyperlipidemia On: 44-Ksh-396979:54 Request CBC WITH MANUAL DIFF ([id number]) On: 96-Wnx-129013:57 Request Electrolyte Panel ([id number]) On: 97-Bar-483916:57 Request LIPID PANEL ([id number])Indication: Mixed hyperlipidemia On: 30-Bsm-622804:03 Request METABOLIC PANEL, COMPREHENSIVE ([id number])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 On: 66-Nhc-283898:03 Request CBC WITH MANUAL DIFF ([id number])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 On: 93-Tml-076819:03 Request METABOLIC PANEL, COMPREHENSIVE ([id number])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 On: 46-Rxp-968042:05 Request HEPATIC FUNCTION PANEL ([id number])Indication: Mixed hyperlipidemia On: 36-Nny-992166:05 Request Comments: 3 mos LIPID PANEL ([id number])Indication: Mixed hyperlipidemia On: 32-Djp-477941:05 Request Planned Encounters Medical; Walk Assessment - On: 19-Jun-2018 15:15 [facility] Visit, Nurse Medical; Hospital Follow Up - On: 28-Jun-2018 12:15 [facility] Swetha Pedersen DO, DO, Kathleen Planned Procedures ELECTROCARDIOGRAM, COMPLETE (ECG) On: 20-Nov-2017 Intent ([id number])By: Robyn Vergara Comments: nsr no acute cgh Flu Vaccine (Quadrivalent) [id number]: On: 22-May-2017 Intent Swetha Pedersen DO, DO, Comments: QUAD flu shotlot number: [id number]: 10/2017L Deltoid IMAD TOBACCO SIZER Swetha [id number] FOR On: 16-Jan-2017 Intent OBESITY, 15 MINUTES ([id number])By: Swetha Pedersen DO, DO, Kathleen ELECTROCARDIOGRAM, COMPLETE (ECG) On: 21-Nov-2016 Intent ([id number])By: Swetha Pedersen DO Comments: nsr no acute chg Swetha DOUGLAS ADMINISTRATION OF INFLUENZA VIRUS On: 27-Apr-2015 Intent VACCINE ([id number])By: Lisa Potter DO FLU VAC, SPLIT, >3 YEARS, INTRAMUSC On: 27-Apr-2015 Intent ([id number])By: Lisa Potter DO Comments: Lot:[id number]:12/13Dose:0.5mLRoute:IMSite:L DltdGiven By:AMBROSIO signed EKG ([id number])By: Lisa Potter DO On: 13-Oct-2014 Intent Comments: ekg showed normal sinus rhythym, normal axis, no acute st/t wave changes lvh IMMUNIZ ADMNIN, 1 VAC, SNGL/COMBO On: 07-Oct-2013 Intent ([id number])By: Lisa Potter DO Comments: Lot: [id number]: [id number]: 0.5mlRoute: IMSite: L detoidGiven by: ALYSSA Sotelo PNEUM VAC ADLT/IMUMNOSPR, SBC/INTRM On: 07-Oct-2013 Intent ([id number])By: Lisa Potter DO EKG ([id number])By: Lisa Potter DO On: 07-Oct-2013 Intent Comments: ekg- sinus with left axis and lvh no change compared to prvious FLU VAC, SPLIT, >3 YEARS, INTRAMUSC On: 10-Oct-2011 Intent ([id number])By: Mila Osullivan Comments: received 04/2011 TDAP VACCINE >7 IM ([id number])By: Shi, On: 10-Oct-2011 Intent Mila Comments: declines Eprescribed prescriptions ([id number])By: On: 01-Apr-2011 Intent Lisa Potter DO EKG ([id number])By: Mila Osullivan On: 12-Oct-2009 Intent EKG ([id number])By: Lisa Potter DO A On: 25-Sep-2006 Intent Comments: ekg showed normal [...] Advance Directives Name Dates Details Immunization Registry [place] - Effective on Effective: 22-May-201705/22/2017. Expiration date unspecified Encounters Office Visit On: 13-Jun-2018 10:59 Encounter Reason: Annual Medicare Exam - The patient had reviewed and updated the family history, medication/s, past medical history and social history. Yes the patient did have () a mini mental status exam done tod End: 13-Jun-2018 12:32 ay. The activities of [...] patient does not have durable power of criminal defense attorney or living will. The patient has noticed [...] gotten lost, has a medalert necklace or bracelet or put handrails in bathroom. The patient has completed the following pr eventative measures: PSA testing (12/13) and colonoscopy (5 yrs). The patient does not have durable power of criminal defense attorney or living will. The patient has noticed [...] and bp is good - he saw [facility] and still has right inguinal hernia- - he saw Yadav and reviewed mri and li billie mass [...] saw carolyn they plan at sometime in [facility] to get the inguinal hernia repaired no [...] had appt with Rebecca Traore- nurse jamie schrader- had lab which apparently was ok - to check response to treatment- had at home annual visit -this summer too- then 2 weeks ago - saw Dr Yadav- then had lab again and mri again- - to show treatme nt response toY90- mass has decreased in size - has appt in apr with [facility] Diagnosis: Hypertension with LVH (402.90), Hepatocellular carcinoma, [...] polyp and wasnt cancernous - he saw immigration associate at [facility], [place] 12/12- Rodolfo Zavala - he ordered more labs- he didnt do chol labs for me though-- felt overwhelmed and reasonably sohis afp marker incrasing - has mass liver concerning for hepatocellular carcinoma - he saw radiologist last - his apolinar and antismooth muscle ab positive hep c neg hepb a b elevated- he has procedure set up with Dr Yadav in [place]- he was told 2 treatment options for [...] Follow up, Laboratory Test Results - Date: (9/8/14). 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
--- OUTSIDE RECORDS SUMMARY | 2018-08-26 09:47 | XMS RPT_ITS | Continuity of Care Document ---
:1945 Author Organization [facility] Address [address] [facility] [address] [place] [address] Phone Care Team Providers Name Role Phone [...] in size with no enhancem ent to [facility] recurrent disease,Diagnosed in 2015: 2 procedure Y [...] 16-Aug-2016 End : 15-Sep-2016 Inactive Vitamin D3 43433 UNIT Oral Capsule 1 (one) Capsule Capsule [...] Department Summary Result: Comments: See Note; NOTES: [facility] Medical Records Department [address] [place] [address] Emergency Department Summary 05/11/18 1307 MR#: [id number] Acct: [id number] Name: LUCAS EAST Rep #: [id number] : 1945 73 From: Cristina Lyles MD PCP: Swetha Pedersen DO Status: REG ER - ER Visit Summary Date of Service: 05/11/18 Chief Complaint: Wound check Histo ry of Present Illness: The patient is a 73 M presenting for wound check. Patient had surgery at [facility] on April 25 for a strangulated [...] acquired pneumonia. Discussed with Dr. Meeks at [facility]. He is in agreement that the patient can stay at [facility] as the patient wishes. Discussed with Dr. Hyde and patient will be admitted. Disposition: Admission Impression: Healthcare acquired pneumonia This note was generated with Zenoss dictation software. It may contain incorrect words, [...] problems, contact your Primary Care Provider. Call [facility] ([phone]) or report to the closest Emergency Room. Call 911 if necessary. 05/11/18 1601 <Electronically signed by Shayne Lyles MD> Date Cristina Lyles MD Cosigner Signature (If Indicated): Date CC: Swetha Pedersen DO 11-May-2018 Acute Abdomen Inc Chest Result: Comments: See Note; NOTES: [facility] Imaging Services [address] [place] [address] Acute Abdomen Inc Chest MR#: [id number] Acct: [id number] Name: LUCAS EAST Rep #: [id number] : 1945 73 From: Benton Toledo MD PCP: Swetha Pedersen DO Status: [facility] ER Study: Acute Abdomen Inc Chest Date of Exam: 05/11/18 Exam# [id number] Ordering Dr: Cristina Lyles MD JONATAN DY: [...] CC: Cristina Lyles MD; Swetha Pedersen DO Condominium Association Manager: Signed 21-Apr-2018 Emergency Department Summary Result: Comments: See Note; NOTES: [facility] Medical Records Department [address] [place] [address] Emergency Department Summary 04/21/18 0057 MR#: [id number] Acct: [id number] Name: LUCAS EAST Rep #: [id number] : 1945 73 From: Bobby Walton MD [...] not having vomiting. Will be transferred to [facility] as our ope rating room is down for cleaning. Discussed with our surgeon on-call Dr. Amezcua and also Dr. Cohen at [facility]. He will be transferred. Given morphine IV fluids and Zofran with good relief of sy mptoms Treatment Plan: [] Disposition: [] Impression: [] Incarcerated right inguinal hernia Small bowel obstruction secondary to incarcerated inguinal hernia Acute renal insufficiency Critical CARE time: 30-74 minutes This note was generated with Sooqiniation software. It may contain incorrect words, spelling, [...] your Primary Care Provider. Call [facility] ([phone]) or report to the closest Emergency Room. Call 911 if necessar y. 04/21/18 0214 <Electronically signed by Bobby Walton MD> Date Bobby Walton MD Cosigner Signature (If Indicated): Date __ CC: Swetha Pedersen DO 20-Apr-2018 Abdomen/Pelvis without Cont Result: Comments: See Note; NOTES: [facility] Imaging Services [address] [place] [address] Abdomen/Pelvis without Cont MR#: [id number] Acct: [id number] Name: LUCAS EAST Nurys Rep # : [id number] : 1945 M 73 From: Laverne Ladd MD PCP: Swetha Pedersen DO Status: REG ER Study: Abdomen/Pelvis without Cont Date of Exam: 04/20/18 Exam# [id number] Ordering Dr: Bobby Walton STUDY: CT ABDOMEN [...] CC: Swetha Pedersen DO; Bobby Walton MD Condominium Association Manager: Signed 10-Nov-2014 Abdomen/Pelvis W/WO Contrast Result: Comments: See Note; NOTES: [facility] Imaging Services [address] [place] [address] CAT Scan Report MR#: [id number] Acct: [id number] Name: LUCAS EAST Rep #: [id number] : 1945 M 69 From: Salvatore Gomes DO PCP: Lisa Potter DO Status: REG CLI Study: Abdomen/Pelvis W/WO Contrast Date of Exam: 11/10/14 Exam# [id number] Ordering Dr: Josef Patton MD [facility] DY: CT ABDOMEN AND PELVIS [...] atypical hemangioma cannot be ruled out. Further charsi luation with MRI is recommended. 2. Right inguinal hernia containing the appendix. 3. Bilateral renal focal cortical scarring. 4. Enlarged prostate. Electronically Signed: Salvatore Gomes DO 11/10 at 13:34 EDT Tel [phone], Service support [phone], CC: Lisa Potter DO; Josef Patton Condominium Association Manager: Signed Immunization Name Dates Details Pneumococcal (5 years and under) on: 18-Jan-2017 [...] smoker Vital Signs Date Test Result Details 67-Utg-943444:02 Comments: 12/2017 last eye exam was tested [...] kg/m2 Body Surface Area Calculated 2.32 m2 53-Qct-315297:05 Pulse 80 /min Comments: Pattern: Regular Respiration [...] Height 0 in Head Circumference 0.00 cm 44-Ani-879839:00 Temperature 98.1 f Comments: Method: Oral Pulse [...] 0.00 cm Results Date Description Value Details 70-Rlp-748916:33 Basic Metabolic Profile (BMP) Comments: Send Results To: Swetha Hudson for [facility] [address] [place], [place], [address] GAP 11 (Normal) Range: 5-15 CO2 28.0 [...] Comments: Please note revised GLUCOSE reference range ifyqdwfvb68/02/2018. 68-Tti-764101:29 Urinalysis, Complete Comments: Order Date: 05/11/18How was Urine Obtained? CLEAN [facility] [address] [facility] [place], [address] MUCUS, URINE 2+ {/hpf} (Normal) BACTERIA 1+ [...] (Normal) CLARITY Clear (Normal) COLOR Yellow (Normal) 86-Tml-360757:19 Basic Metabolic Profile (BMP) Comments: [facility] [address] [facility]. [place], [place], [address] GAP 7 (Normal) Range: 5-15 CO2 25.0 [...] A.D.A. criteria.Please note revised GLUCOSE reference range uzcofpllc69/02/2018. 61-Xxm-870097:19 CBC W/Diff, Automated Comments: [facility] [address] [place], [place], [address] Absolute Lymph 1.73 {X10_3/ul} (Normal) Range: 0.83-4.51 [...] 4.6-6.2 WBC 7.5 K/mm3 (Normal) Range: 4.4-11.0 41-Iua-903427:10 Basic Metabolic Profile (BMP) Comments: [facility] [address] [place], [place], [address] GAP 12 (Normal) Range: 5-15 CO2 22.0 [...] A.D.A. criteria.Please note revised GLUCOSE reference range jjyawnvxp74/02/2018. 37-Fpg-107984:10 CBC W/Diff, Automated Comments: [facility] [address] [place], [address] Absolute Lymph 2.70 {X10_3/ul} (Normal) Range: [...] Range: 4.4-11.0 :10 Partial Thromboplast Time Comments: [facility] [address] [place], [address] PTT 39.8 s (Abnormal) Range: 24.1-36.2 :10 Prothrombin Time w/INR Comments: [facility] [address] [place], [address] INR 1.3 (Normal) PROTIME 16.3 s (Abnormal) Range: 11.7-14.9 :21 Microscopic Examination Comments: PATIENT WAS FASTINGPERFORMED BY: [facility] Zbleum2419 [facility] [id number] Bacteria Few (Normal) Mucus Threads Present (Normal) Cast Type Hyaline casts (Normal) Casts Present {/lpf} (Abnormal) Epithelial Cells (non renal) 0-10 {/hpf} (Normal) Range: 0 - 10 RBC 0-2 {/hpf} (Normal) Range: 0 - 2 WBC 0-5 {/hpf} (Normal) Range: 0 - 5 :49 PSA,Total- Diagnostic Comments: [facility] [address] [place], [place], [address] PSA, DIAGNOSTIC 4.43 ng/mL (Abnormal) Range: 0.0-4.0 Comments: This test was performed using the TPSA assay method for [employer] chemistry system. Values obtained with differentassay methods cannot be used interchangably.When changing PSA assays in the course of monitoring apatient, additional sequential testing should be carriedout to confirm baseline values. 48-Gny-090769:50 HgA1C , Office (41752) HgA1C , Office 5.7 % (Normal) Range: 4.6 - 7.1 :21 CALCIFEDIOL (02424) Comments: PATIENT WAS FASTINGPERFORMED BY: [facility] Msdqkx1914 [facility] [id number] Vitamin D, 25-Hydroxy 49.2 ng/mL (Normal) Range: 30.0-100.0 Comments: Vitamin D deficiency has been defined by the [place] of[place]icine and an Endocrine Society practice guideline as alevel of serum 25-OH vitamin D less than 20 ng/mL (1,2).The Endocrine Society went on to further define vitamin Dinsufficiency as a level between 21 and 29 ng/mL (2).1. IOM ([place] of Medicine). 2010. Dietary reference intakes for calcium and D. [place]: The National Academies Press.2. Reuben MF, Stephanie NC, Radha MILLIGAN, et al. Evaluation, treatment, and prevention of vitamin D deficiency: an Endocrine Society clinical practice guideline. JCEM. 2010; 96(7):1911-30. :21 TSH (23296) Comments: PATIENT WAS FASTINGPERFORMED BY: [facility] [facility] [id number] TSH 2.900 {uIU/mL} (Normal) Range: 0.450-4.500 :21 URINALYSIS, W/ MICRO (23773) Comments: PATIENT WAS FASTINGPERFORMED BY: [facility]6[address] [facility] [id number] Microscopic Examination See below: (Normal) Comments: Microscopic was indicated and was performed. Microscopic Examination MICRON (Normal) Comments: Microscopic follows if indicated. Nitrite, Urine Negative (Normal) Urobilinogen,Semi-Qn 0.2 mg/dL (Normal) Range: 0.2-1.0 Bilirubin Negative (Normal) Occult Blood Negative (Normal) Ketones Negative (Normal) Glucose Negative (Normal) Protein Negative (Normal) WBC Esterase Negative (Normal) Appearance Clear (Normal) Urine-Color Yellow (Normal) pH 5.0 (Normal) Range: 5.0-7.5 Specific Bartlett 1.016 (Normal) Range: 1.005-1.030 :21 MICROALBUMIN: CREATININE RATIO Comments: PATIENT WAS FASTINGPERFORMED BY: [facility] [facility] [id number] (56312) AND (47335) Alb/Creat Ratio <3.8 {mg/g_creat} (Normal) Range: 0.0-30.0 Albumin, Urine <3.0 ug/mL (Normal) Creatinine, Urine 79.5 mg/dL (Normal) :21 METABOLIC PANEL, COMPREHENSIVE Comments: PATIENT WAS FASTINGPERFORMED BY: [facility] [facility] [id number] (27919) ALT (SGPT) 16 [iU]/L (Normal) Range: 0-44 [...] 8-27 Glucose 94 mg/dL (Normal) Range: 65-99 69-Hme-59273:21 CBC W/AUTO DIFF WBC (36913) Comments: PATIENT WAS FASTINGPERFORMED BY: [facility] CenterHozjjo3452 [facility] [id number] Immature Grans (Abs) 0.0 {x10E3/uL} (Normal) Range: [...] {x10E3/uL} (Normal) Range: 3.4-10.8 :21 LIPID PANEL (69723) Comments: PATIENT WAS FASTINGPERFORMED BY: [facility] [facility] [facility] [id number] LDL/HDL Ratio 3.0 {ratio} (Normal) Range: 0.0-3.6 [...] Microscopic Examination Comments: PATIENT WAS FASTINGPERFORMED BY: [facility] [address]xzk[address] [facility] [id number] Bacteria None seen (Normal) Mucus Threads Present (Normal) Epithelial Cells (non renal) 0-10 {/hpf} (Normal) Range: 0 - 10 RBC 0-2 {/hpf} (Normal) Range: 0 - 2 WBC 0-5 {/hpf} (Normal) Range: 0 - 5 :12 PSA,Total- Diagnostic Comments: [facility] [address] [place], [address] PSA, DIAGNOSTIC 4.20 ng/mL (Abnormal) Range: 0.0-4.0 Comments: This test was performed using the TPSA assay method for [employer]or[employer] chemistry system. Values obtained with differentassay methods cannot be used interchangably.When changing PSA assays in the course of monitoring apatient, additional sequential testing should be carriedout to confirm baseline values. :49 TSH (42232) Comments: PATIENT WAS FASTINGPERFORMED BY: [facility] Hhzfuf3960 [address] RoadDublin [place] [id number] TSH 3.530 {uIU/mL} (Normal) Range: 0.450-4.500 :49 CALCIFEDIOL (36677) Comments: PATIENT WAS FASTINGPERFORMED BY: [facility] Juzcgs8382 [address]ui RoadDublin [place] [id number] Vitamin D, 25-Hydroxy 28.4 ng/mL (Abnormal) Range: 30.0-100.0 Comments: Vitamin D deficiency has been defined by the [place] of[place] and an Endocrine Society practice guideline as alevel of serum 25-OH vitamin D less than 20 ng/mL (1,2).The Endocrine Society went on to further define vitamin Dinsufficiency as a level between 21 and 29 ng/mL (2).1. IOM ([place] of [place]). 2010. Dietary reference intakes for calcium and D. [place]: The National Academies Press.2. Reuben MF, Stephanie NC, Radha MILLIGAN, et al. Evaluation, treatment, and prevention of vitamin D deficiency: an Endocrine Society clinical practice guideline. JCEM. 2010; 96(7):1911-30. :49 URINALYSIS, W/ MICRO (92926) Comments: PATIENT WAS FASTINGPERFORMED BY: [facility] Lbftnm5167 [address] RoadDublin [place] [id number] Microscopic Examination See below: (Normal) Comments: Microscopic was indicated and was performed. Microscopic Examination MICRON (Normal) Comments: Microscopic follows if indicated. Nitrite, Urine Negative (Normal) Urobilinogen,Semi-Qn 0.2 mg/dL (Normal) Range: 0.2-1.0 Bilirubin Negative (Normal) Occult Blood Negative (Normal) Ketones Negative (Normal) Glucose Negative (Normal) Protein Negative (Normal) WBC Esterase Negative (Normal) Appearance Clear (Normal) Urine-Color Yellow (Normal) pH 5.5 (Normal) Range: 5.0-7.5 Specific Bartlett 1.018 (Normal) Range: 1.005-1.030 :49 MICROALBUMIN: CREATININE RATIO Comments: PATIENT WAS FASTINGPERFORMED BY: [employer] [facility] [id number] (52843) AND (84008) Alb/Creat Ratio <3.0 {mg/g_creat} (Normal) Range: 0.0-30.0 Albumin, Urine <3.0 ug/mL (Normal) Creatinine, Urine 101.1 mg/dL (Normal) :49 METABOLIC PANEL, COMPREHENSIVE Comments: PATIENT WAS FASTINGPERFORMED BY: [employer]70 [facility] [id number] (13202) ALT (SGPT) 17 [iU]/L (Normal) Range: 0-44 [...] 8-27 Glucose 100 mg/dL (Abnormal) Range: 65-99 :49 CBC W/AUTO DIFF WBC (87696) Comments: PATIENT WAS FASTINGPERFORMED BY: [facility]6[address] [facility] [id number] Immature Grans (Abs) 0.0 {x10E3/uL} (Normal) Range: [...] {x10E3/uL} (Normal) Range: 3.4-10.8 :49 LIPID PANEL (32099) Comments: PATIENT WAS FASTINGPERFORMED BY: [facility] Zwxzev1840 [facility] [id number] LDL/HDL Ratio 4.3 {ratio} (Abnormal) Range: 0.0-3.6 Comments: LDL/HDL Ratio Men Women 1/2 Avg.Risk 1.0 1.5 Av g.Risk 3.6 3.2 2X Avg.Risk 6.2 5.0 3X Avg.Risk 8.0 6.1 LDL Cholesterol Calc 149 mg/dL (Abnormal) Range: 0-99 VLDL Cholesterol Elvin 36 mg/dL (Normal) Range: 5-40 HDL Cholesterol 35 mg/dL (Abnormal) Triglycerides 181 mg/dL (Abnormal) Range: 0-149 Cholesterol, Total 220 mg/dL (Abnormal) Range: 100-199 48-Izs-587823:47 Microscopic Examination Comments: PATIENT WAS FASTINGPERFORMED BY: [facility] Ycsvoq4137 [facility] [id number] Bacteria Few (Normal) Mucus Threads Present (Normal) Epithelial Cells (non renal) 0-10 {/hpf} (Normal) Range: 0 - 10 RBC 0-2 {/hpf} (Normal) Range: 0 - 2 WBC 0-5 {/hpf} (Normal) Range: 0 - 5 :53 AFP, Tumor Marker Comments: FAX AFP RESULTS TO [phone] Patient ? NComments: ALPHA FETOPROTIEN,SERUM RTLabCorp (refer to report for specific site)refer to report for address and phone number AFP TUMOR 2253 3.1 ng/mL (Normal) Range: 0.0-8.3 Comments: Melodie ECLIA methodology :53 Basic Metabolic Profile (BMP) Comments: Comments: ALPHA FETOPROTIEN,SERUM RTLake [facility] [address]llal[address] [place], [place], [address] GAP 5 (Normal) Range: 5-15 CO2 29.0 [...] :53 Liver Profile Comments: Comments: ALPHA FETOPROTIEN,SERUM [facility] [address] [place], [place], [address] D BILI 0.24 mg/dL (Normal) Range: 0.00-0.30 T BILI 1.10 mg/dL (Abnormal) Range: 0.20-1.00 ALT 30 U/L (Normal) Range: 12-78 ALK P 85 U/L (Normal) Range: 45-117 AST 17 U/L (Normal) Range: 15-37 GLOB 3.5 g/dL (Normal) Range: 2.3-3.5 ALB 3.9 g/dL (Normal) Range: 3.4-5.0 T PROT 7.4 g/dL (Normal) Range: 6.4-8.2 :53 Phosphorus Comments: Comments: ALPHA FETOPROTIEN,SERUM [facility] [address] [place], [address] PHOS 2.6 mg/dL (Normal) Range: 2.5-4.9 :53 Prothrombin Time w/INR Comments: [facility] [address] [place], [place], [address] INR 1.1 (Normal) PROTIME 13.7 s (Normal) Range: 11.7-14.9 :47 TSH (41477) Comments: PATIENT WAS FASTINGPERFORMED BY: [facility]CoCommunity [facility] CenterRjqvop5884 [facility] [id number] TSH 1.580 {uIU/mL} (Normal) Range: 0.450-4.500 :47 URINALYSIS, W/ MICRO (21025) Comments: PATIENT WAS FASTINGPERFORMED BY: [facility]6370 [facility] [id number] Microscopic Examination See below: (Normal) Comments: Microscopic was indicated and was performed. Microscopic Examination MICRON (Normal) Comments: Microscopic follows if indicated. Nitrite, Urine Negative (Normal) Urobilinogen,Semi-Qn 0.2 mg/dL (Normal) Range: 0.2-1.0 Bilirubin Negative (Normal) Occult Blood Negative (Normal) Ketones Negative (Normal) Glucose Negative (Normal) Protein Negative (Normal) WBC Esterase Negative (Normal) Appearance Clear (Normal) Urine-Color Yellow (Normal) pH 5.5 (Normal) Range: 5.0-7.5 Specific Bartlett 1.026 (Normal) Range: 1.005-1.030 :47 MICROALBUMIN: CREATININE RATIO Comments: PATIENT WAS FASTINGPERFORMED BY: [place] [address]23[address] [facility] [id number] ([id number]) AND (63909) Microalb/Creat Ratio 3.1 {mg/g_creat} (Normal) Range: 0.0-30.0 Microalbumin, Urine 5.4 ug/mL (Normal) Creatinine, Urine 172.4 mg/dL (Normal) :47 METABOLIC PANEL, COMPREHENSIVE Comments: PATIENT WAS FASTINGPERFORMED BY: [place] 2002370 [facility] [id number] (74942) ALT (SGPT) 19 [iU]/L (Normal) Range: 0-44 [...] Glucose, Serum 99 mg/dL (Normal) Range: 65-99 49-Hkw-431922:47 CBC W/AUTO DIFF WBC (15818) Comments: PATIENT WAS FASTINGPERFORMED BY: [facility]CoCommunity [facility] CenterNowczb3597 [facility] [id number] Immature Grans (Abs) 0.0 {x10E3/uL} (Normal) Range: [...] {x10E3/uL} (Normal) Range: 3.4-10.8 :47 LIPID PANEL (50109) Comments: PATIENT WAS FASTINGPERFORMED BY: [facility]CoCommunity [facility] CenterSoxyso4769 [facility] [id number]; will review on 05/22 LDL/HDL Ratio 3.6 [...] Cholesterol, Total 184 mg/dL (Normal) Range: 100-199 0-Pxv-591683:09 PSA,Total- Diagnostic Comments: [facility] [address] [place], [address] PSA, DIAGNOSTIC 6.85 ng/mL (Abnormal) Range: 0.0-4.0 Comments: This test was performed using the TPSA assay method for theStemPar Sciences chemistry system. Values obtained with differentassay methods cannot be used interchangably.When changing PSA assays in the course of monitoring apatient, additional sequential testing should be carriedout to confirm baseline values. 6-Ztz-424533:53 AFP, Tumor Marker Comments: Is Patient ? NComments: N/ALabCorp (refer to report for specific site)refer to report for address and phone number AFP TUMOR 2253 2.1 ng/mL (Normal) Range: 0.0-8.3 Comments: Melodie ECLIA methodologyPerformed at: CB - [facility] [address] [id number] Director: Josef Ventura PhD, Phone: [phone] 4-Iby-842345:53 Basic Metabolic Profile (BMP) Comments: Comments: [facility] [address] [place], [address] GAP 8 (Normal) Range: 5-15 [...] 7-18 GLU 104 mg/dL (Normal) Range: 70-110 1-Vtq-002030:53 Liver Profile Comments: Comments: [facility] [address] [place], [address] D BILI 0.23 mg/dL (Normal) Range: 0.00-0.30 T BILI 1.00 mg/dL (Normal) Range: 0.20-1.00 ALT 26 U/L (Normal) Range: 12-78 ALK P 98 U/L (Normal) Range: 45-117 AST 19 U/L (Normal) Range: 15-37 GLOB 3.8 g/dL (Abnormal) Range: 2.3-3.5 ALB 3.9 g/dL (Normal) Range: 3.4-5.0 T PROT 7.7 g/dL (Normal) Range: 6.4-8.2 :53 Phosphorus Comments: Comments: N[facility]Prem[facility] [address]casefetg[address] [place], [address] PHOS 2.3 mg/dL (Abnormal) Range: 2.5-4.9 :53 Prothrombin Time w/INR Comments: [facility] [address] [place], [address] INR 1.1 (Normal) PROTIME 13.4 s (Normal) Range: 11.7-14.9 94-Emm-819987:24 MICROALBUMIN: CREATININE RATIO Comments: PATIENT WAS FASTINGPERFORMED BY: [facility] [id number] (93525) AND (32600) Microalb/Creat Ratio 5.7 {mg/g_creat} (Normal) Range: 0.0-30.0 Microalbumin, Urine 9.7 ug/mL (Normal) Creatinine, Urine 169.8 mg/dL (Normal) 07-Cks-730630:24 VITAMIN B12 AND FOLATES Comments: PATIENT WAS FASTINGPERFORMED BY: [facility]6370 [facility] [id number] (06116) Folate (Folic Acid), Serum >20.0 ng/mL (Normal) Comments: A serum folate concentration of less than 3.1 ng/mL isconsidered to represent clinical deficiency. Vitamin B12 323 pg/mL (Normal) Range: 211-946 54-Pap-975870:24 CALCIFEDIOL (25588) Comments: PATIENT WAS FASTINGPERFORMED BY: [facility]6370 [facility] [id number] Vitamin D, 25-Hydroxy 33.2 ng/mL (Normal) Range: 30.0-100.0 Comments: Vitamin D deficiency has been defined by the [place] of[place]icine and an Endocrine Society practice guideline as alevel of serum 25-OH vitamin D less than 20 ng/mL (1,2).The Endocrine Society went on to further define vitamin Dinsufficiency as a level between 21 and 29 ng/mL (2).1. IOM ([place] of [place]). 2010. Dietary reference intakes for calcium and D. [place]: The National Academies Press.2. Reuben MF, Stephanie CLARK, Radha MILLIGAN, et al. Evaluation, treatment, and prevention of vitamin D deficiency: an Endocrine Society clinical practice guideline. JCEM. 2010; 96(7):1911-30. 83-Kdd-943628:24 TSH (THYROID STIMULATING Comments: PATIENT WAS FASTINGPERFORMED BY: [facility] [id number] HORMONE) (22792) TSH 2.410 {uIU/mL} (Normal) Range: 0.450-4.500 :24 LIPID PANEL (39766) Comments: PATIENT WAS FASTINGPERFORMED BY: [facility]d6370 [address] [facility] [id number] LDL/HDL Ratio 3.7 {ratio_units} (Abnormal) Range: 0.0-3.6 [...] PANEL, COMPREHENSIVE Comments: PATIENT WAS FASTINGPERFORMED BY: [employer] [address] [facility] [id number] (92902) ALT (SGPT) 30 [iU]/L (Normal) Range: 0-44 [...] Glucose, Serum 99 mg/dL (Normal) Range: 65-99 59-Qbs-698493:24 CBC, PLATELETS & AUT DIFF Comments: PATIENT WAS FASTINGPERFORMED BY: [facility] Voefld4529 [facility] [id number]; fu 4-24 KF (01251) Immature Grans (Abs) 0.0 {x10E3/uL} (Normal) Range: [...] 2253 2.6 ng/mL (Normal) Range: 0.0-8.3 Comments: [employer] ECLIA methodologyPerformed at: [facility] [place] [id number] Director: Josef Ventura PhD, Phone: [phone] 05-Shh-74605:30 Bilirubin, Direct Comments: [facility] [address]kuytabsj[address] [facility] [place], [place], [address] D BILI 0.29 mg/dL (Normal) Range: 0.00-0.30 :30 Comprehensive Metabolic Profil Comments: [facility] Kcfxkhqlnp[address] [facility] [place], [place], [address] GAP 8 (Normal) Range: 5-15 CO2 26.0 [...] 7-18 GLU 102 mg/dL (Normal) Range: 70-110 60-Jxo-17656:30 Phosphorus Comments: [facility] [address] [place], [place], [address] PHOS 2.4 mg/dL (Abnormal) Range: 2.5-4.9 :30 Prothrombin Time w/INR Comments: [facility] [address] [place], [place], [address] INR 1.1 (Normal) PROTIME 13.4 s (Normal) Range: 11.7-14.9 :35 CALCIFEDIOL (04385) Comments: PATIENT WAS FASTINGPERFORMED BY: [facility]6370 [facility] [id number] Vitamin D, 25-Hydroxy 45.6 ng/mL (Normal) Range: 30.0-100.0 Comments: Vitamin D deficiency has been defined by the [place] of[place] and an Endocrine Society practice guideline as alevel of serum 25-OH vitamin D less than 20 ng/mL (1,2).The Endocrine Society went on to further define vitamin Dinsufficiency as a level between 21 and 29 ng/mL (2).1. IOM ([place] of [place]). 2010. Dietary reference intakes for calcium and D. [place]: The National Academies Press.2. Reuben MF, Stephanie CLARK, Radha MILLIGAN, et al. Evaluation, treatment, and prevention of vitamin D deficiency: an Endocrine Society clinical practice guideline. JCEM. 2010; 96(7):1911-30. :35 METABOLIC PANEL, COMPREHENSIVE Comments: PATIENT WAS FASTINGPERFORMED BY: [facility]CoCommunity Medical CenterQoaope0954 [facility] [id number] ([id number]) ALT (SGPT) 18 [iU]/L (Normal) Range: 0-44 [...] mg/dL (Abnormal) Range: 65-99 :35 LIPID PANEL (57944) Comments: PATIENT WAS FASTINGPERFORMED BY: [facility] Msgdyk0374 [facility] [id number] LDL/HDL Ratio 4.4 {ratio_units} (Abnormal) Range: 0.0-3.6 Comments: LDL/HDL Ratio Men Women 1/2 Avg.Risk 1.0 1.5 Av g.Risk 3.6 3.2 2X Avg.Risk 6.2 5.0 3X Avg.Risk 8.0 6.1 LDL Cholesterol Calc 151 mg/dL (Abnormal) Range: 0-99 VLDL Cholesterol Elvin 33 mg/dL (Normal) Range: 5-40 HDL Cholesterol 34 mg/dL (Abnormal) Triglycerides 165 mg/dL (Abnormal) Range: 0-149 Cholesterol, Total 218 mg/dL (Abnormal) Range: 100-199 28-Bsy-302235:13 PSA,Total- Diagnostic Comments: [facility] [address] [place], [address] PSA, DIAGNOSTIC 6.86 ng/mL (Abnormal) Range: 0.0-4.0 Comments: This test was performed using the TPSA assay method for [employer] chemistry system. Values obtained with differentassay methods cannot be used interchangably.When changing PSA assays in the course of monitoring apatient, additional sequential testing should be carriedout to confirm baseline values. 89-Zdr-176038:29 HgA1C , Office (39439) HgA1C , Office 5.6 % (Normal) Range: 4.6 - 7.1 :19 AFP, Tumor Marker Comments: Is [facility] ? [facility] (refer to report for specific site)refer to report for address and phone number AFP TUMOR 2253 3.8 ng/mL (Normal) Range: 0.0-8.3 Comments: Melodie ECLIA methodologyPerformed at: - [facility] [address] [id number] Director: Josef Ventura PhD, Phone: [phone] :19 Basic Metabolic Profile (BMP) Comments: [facility] [address] [place], [address] GAP 6 (Normal) Range: 5-15 CO2 27.0 [...] Range: 70-110 :19 CBC W/Diff, Automated Comments: [facility] [address] [place], [place], [address] Absolute Lymph 2.14 {X10_3/ul} (Normal) Range: 0.83-4.51 [...] (Normal) Range: 4.4-11.0 :19 Liver Profile Comments: [facility] [address] [facility] [address] [place], [place], [id number] D BILI 0.21 mg/dL (Normal) Range: 0.00-0.30 T BILI 1.50 mg/dL (Abnormal) Range: 0.20-1.00 ALT 23 U/L (Normal) Range: 12-78 ALK P 89 U/L (Normal) Range: 50-136 AST 15 U/L (Normal) Range: 15-37 GLOB 3.6 g/dL (Abnormal) Range: 2.3-3.5 ALB 3.7 g/dL (Normal) Range: 3.4-5.0 T PROT 7.3 g/dL (Normal) Range: 6.4-8.2 :19 Phosphorus Comments: [facility] [address] [place], [place], [address] PHOS 2.5 mg/dL (Normal) Range: 2.5-4.9 :19 Prothrombin Time w/INR Comments: [facility] [address] [facility] [address] [place], [place], [id number] INR 1.1 (Normal) PROTIME 13.6 s (Normal) Range: 11.7-14.9 40-Eai-719343:21 VITAMIN B12 AND FOLATES Comments: PATIENT WAS FASTINGPERFORMED BY: [facility]CoCommunity Medical CenterIxmpul2964 [facility] [id number] (77295) Folate (Folic Acid), Serum >20.0 ng/mL (Normal) Comments: A serum folate concentration of less than 3.1 ng/mL isconsidered to represent clinical deficiency. Vitamin B12 358 pg/mL (Normal) Range: 211-946 74-Nvj-256616:21 CALCIFEDIOL (24023) Comments: PATIENT WAS FASTINGPERFORMED BY: [facility] Hloeqe7019 [facility] [id number] Vitamin D, 25-Hydroxy 18.2 ng/mL (Abnormal) Range: 30.0-100.0 Comments: Vitamin D deficiency has been defined by the [place] of[place] and an Endocrine Society practice guideline as alevel of serum 25-OH vitamin D less than 20 ng/mL (1,2).The Endocrine Society went on to further define vitamin Dinsufficiency as a level between 21 and 29 ng/mL (2).1. IOM ([place]). 2010. Dietary reference intakes for calcium and D. [place]: The National Academies Press.2. Reuben MF, Stephanie CLARK, Radha MILLIGAN, et al. Evaluation, treatment, and prevention of vitamin D deficiency: an Endocrine Society clinical practice guideline. JCEM. 2010; 96(7):1911-30. 95-Wou-594895:21 LIPID PANEL (16384) Comments: PATIENT WAS FASTINGPERFORMED BY: [facility] [id number] VLDL Cholesterol Elvin VLDLCH mg/dL (Normal) Range: [...] PANEL, COMPREHENSIVE Comments: PATIENT WAS FASTINGPERFORMED BY: [facility] Npoqtf2932 [facility] [id number] (24144) ALT (SGPT) 17 [iU]/L (Normal) Range: 0-44 [...] Glucose, Serum 102 mg/dL (Abnormal) Range: 65-99 33-Zpy-563366:21 CBC, PLATELETS & AUT DIFF Comments: PATIENT WAS FASTINGPERFORMED BY: [facility]CoCommunity Medical CenterLbwjlg5784 [facility] [id number] (99537) Immature Grans (Abs) 0.0 {x10E3/uL} (Normal) Range: [...] Examination Comments: PATIENT WAS FASTINGPERFORMED BY: [facility] Xeybny4708 [facility] [id number] Bacteria None seen (Normal) Mucus Threads Present (Normal) Epithelial Cells (non renal) 0-10 {/hpf} (Normal) Range: 0 - 10 RBC 0-2 {/hpf} (Normal) Range: 0 - 2 WBC 0-5 {/hpf} (Normal) Range: 0 - 5 :22 Basic Metabolic Profile (BMP) Comments: PLEASE ADD LIVER TO BLOOD FROM THIS [facility] [address] [place], [place], [id number] GAP 6 (Normal) Range: 5-15 CO2 28.0 [...] Range: 70-110 07-Jan-20168:22 CBC W/Diff, Automated Comments: [facility] [address] [place], [address] Absolute Lymph 2.03 {X10_3/ul} (Normal) Range: 0.83-4.51 [...] ADD LIVER TO BLOOD FROM THIS [facility] [address] [place], [id number] D BILI 0.23 mg/dL (Normal) Range: 0.00-0.30 T BILI 1.60 mg/dL (Abnormal) Range: 0.20-1.00 ALT 27 U/L (Normal) Range: 12-78 ALK P 95 U/L (Normal) Range: 50-136 AST 17 U/L (Normal) Range: 15-37 GLOB 3.6 g/dL (Abnormal) Range: 2.3-3.5 ALB 3.9 g/dL (Normal) Range: 3.4-5.0 T PROT 7.5 g/dL (Normal) Range: 6.4-8.2 :22 Phosphorus Comments: PLEASE ADD LIVER TO BLOOD FROM THIS [facility] [address] [place], [place], [address] PHOS 2.5 mg/dL (Normal) Range: 2.5-4.9 :22 Prothrombin Time w/INR Comments: [facility] [address] [place], [place], [address] INR 1.1 (Normal) PROTIME 13.6 s (Normal) Range: 11.7-14.9 :49 URINALYSIS, W/ MICRO (25353) Comments: PATIENT WAS FASTINGPERFORMED BY: [facility]CoCommunity Medical CenterKcjdhv4468 [facility] [id number] Microscopic Examination See below: (Normal) Comments: Microscopic was indicated and was performed. Microscopic Examination MICRON (Normal) Comments: Microscopic follows if indicated. Nitrite, Urine Negative (Normal) Urobilinogen,Semi-Qn 0.2 mg/dL (Normal) Range: 0.2-1.0 Bilirubin Negative (Normal) Occult Blood Negative (Normal) Ketones Trace (Abnormal) Glucose Negative (Normal) Protein Negative (Normal) WBC Esterase Negative (Normal) Appearance Clear (Normal) Urine-Color Yellow (Normal) pH 6.0 (Normal) Range: 5.0-7.5 Specific Bartlett 1.030 (Normal) Range: 1.005-1.030 :49 CBC W/AUTO DIFF WBC Comments: PATIENT WAS FASTINGPERFORMED BY: SARA AccuvantUNM HospitalOkmtwt6074 [facility] [id number] Information: [id number] (22274) Immature Grans (Abs) 0.0 {x10E3/uL} (Normal) Range: [...] {x10E3/uL} (Normal) Range: 3.4-10.8 :49 LIPID PANEL (92361) Comments: PATIENT WAS FASTINGPERFORMED BY: AccuvantUNM HospitalTesobm0346 [facility] [id number] LDL/HDL Ratio 4.5 {ratio_units} (Abnormal) Range: 0.0-3.6 [...] Cholesterol, Total 203 mg/dL (Abnormal) Range: 100-199 03-Mar-20169:49 METABOLIC PANEL, COMPREHENSIVE Comments: PATIENT WAS FASTINGPERFORMED BY: [facility]CoCommunity Medical CenterQireem2406 [facility] [id number] ([id number]) ALT (SGPT) 15 [iU]/L (Normal) Range: 0-44 [...] Glucose, Serum 101 mg/dL (Abnormal) Range: 65-99 39-Xae-843791:17 Serum Creatinine AND GFR Comments: [facility] [address] [place], [place], [address] EST GFR - AA 97 mL/min (Normal) Comments: GFR Calc EST GFR 80 mL/min (Normal) Comments: Non- GFR Calc CREAT,SERUM 0.98 mg/dL (Normal) Range: 0.70-1.30 Comments: The validity of the calculated GFR AND GFRAA in patients over70 years has not been determined. Clinical correlation isessential. :03 METABOLIC PANEL, Comments: PATIENT WAS FASTINGPERFORMED BY: [facility]CoCommunity Medical CenterSvjdvt0506 [facility] [id number] Information: [id number] COMPREHENSIVE (46624) ALT (SGPT) 22 [iU]/L (Normal) Range: 0-44 [...] (PROSTATE SPECIFIC Comments: PATIENT WAS FASTINGPERFORMED BY: [facility] Hospital6370 [facility] [id number] ANTIGEN) (V76.44) Prostate Specific Ag, 4.5 ng/mL (Abnormal) Range: 0.0-4.0 Serum Comments: FluxIA methodology. .According to the [place] U[employer] Association, Serum PSA shoulddecrease and remain at undetectable levels after radicalprostatectomy. The AUA defines biochemical recurrence as an initialPSA value 0.2 ng/mL or greater followed by a subsequent confirmatoryPSA value 0.2 ng/mL or greater.Values obtained with d ifferent assay methods or kits cannot be usedinterchangeably. Results cannot be interpreted as absolute evidenceof the presence or absence of malignant disease. 32-Ivw-622814:38 CBC-Complete Blood Cnt No Diff Comments: [facility] [address] [place], [address] MPV 10.0 fL (Normal) Range: 6.2-12.0 PLT [...] 4.6-6.2 WBC 5.9 K/mm3 (Normal) Range: 4.4-11.0 19-Hlx-219982:38 Comprehensive Metabolic Profil Comments: [facility] [address] [place], [id number] GAP 7 (Normal) Range: 5-15 CO2 27.0 [...] 7-18 GLU 95 mg/dL (Normal) Range: 70-110 21-Nos-258704:38 Partial Thromboplast Time Comments: [facility] [address] [place], [address] PTT 34.2 s (Normal) Range: 24.1-36.2 75-Dkp-189435:38 Prothrombin Time w/INR Comments: [facility] [address] [place], [address] INR 1.1 (Normal) PROTIME 14.0 s (Normal) Range: 11.7-14.9 98-Hbh-429099:47 CBC-Complete Blood Cnt No Diff Comments: [facility] [address] [place], [place], [address] MPV 10.4 fL (Normal) Range: 6.2-12.0 PLT [...] 4.6-6.2 WBC 5.4 K/mm3 (Normal) Range: 4.4-11.0 25-Fwo-280084:47 Comprehensive Metabolic Profil Comments: [facility] [address] [place], [place], [address] GAP 7 (Normal) Range: 5-15 CO2 28.0 [...] 7-18 GLU 86 mg/dL (Normal) Range: 70-110 74-Yum-934381:47 Partial Thromboplast Time Comments: [facility] [address] [place], [place], [address] PTT 35.1 s (Normal) Range: 24.1-36.2 :47 Prothrombin Time w/INR Comments: [facility] [address] [place], [place], [address] INR 1.0 (Normal) PROTIME 13.1 s (Normal) Range: 11.7-14.9 :23 CBC W/Diff, Automated Comments: Test performed at:[address] [address] Absolute Lymph 1.72 {X10_3/ul} (Normal) Range: 0.83-4.51 [...] 07-Apr-20158:23 Comprehensive Metabolic Profil Comments: Test performed at:[facility] [address] [place], [place] [address] GAP 10 (Normal) Range: 5-15 CO2 26.0 [...] Comments: Please note revised CREATININE reference range npzfqthaq74/22/2015. BUN 12 mg/dL (Normal) Range: 7-18 GLU 132 mg/dL (Abnormal) Range: 70-110 Comments: Fasting Glucose result greater than or equal to 126 mg/dLsuggests DIABETES MELLITUS per A.D.A. criteria. 07-Apr-20158:23 Prothrombin Time w/INR Comments: Test performed at:[facility] [address] [place] [address] INR 1.0 (Normal) PROTIME 13.7 s (Normal) Range: 11.7-14.9 7-Puv-966958:25 AFP, Tumor Marker Comments: Is Patient ? NTest performed at:[facility] [address] [place] [address] AFP TUMOR 2253 578.5 ng/mL (Abnormal) Range: 0.0-8.3 Comments: Melodie ECLIA methodologyPerformed at: [facility] [employer] [id number] Director: Toy Walls MD, Phone: [phone] at: [facility] ReadOz[address] [id number] Director: Lalo Murphy PhD, Phone: [phone] 9-Fyt-136753:25 Hepatitis B C Genotype Comments: Is Patient ? NTest performed at:[facility] [address] [place] [address] COMMENT Comment (Normal) Comments: This test was developed and its performance characteristicsdetermined by [employer]. It has not been cleared or approvedby [...] HEP C GENOTYPE Test not performed (Normal) 1-Vbr-196287:25 Hepatitis C,RNA PCR Viral Load Comments: Is Patient ? NTest performed at:[facility] [address] [place], [place] [address] TEST INFO: Comment (Normal) Comments: The quantitative [...] Not Detected {IU/mL} (Normal) :14 LIPID PANEL (38488) Comments: PATIENT WAS FASTINGPERFORMED BY: [facility] [id number]; non-emergent till apt LDL/HDL Ratio 6.1 {ratio_units} [...] METABOLIC PANEL, Comments: PATIENT WAS FASTINGPERFORMED BY: [facility] [id number] Information: [id number] COMPREHENSIVE (70061) ALT (SGPT) 27 [iU]/L (Normal) Range: 0-44 [...] Glucose, Serum 98 mg/dL (Normal) Range: 65-99 69-Lcz-97697:04 EBV Panel (78566) Comments: PATIENT NOT FASTINGPERFORMED BY: LabCoCommunity Medical CenterHhpila6158 [facility] [id number] Information: [id number] Interpretation: [facility] (Normal) Comments: EBV Interpretation Chart . Interpretation [...] Microscopic Examination Comments: PATIENT WAS FASTINGPERFORMED BY: [facility] [id number] Bacteria None seen (Normal) Mucus Threads Present (Normal) Epithelial Cells (non renal) None seen {/hpf} (Normal) Range: 0 - 10 RBC 0-2 {/hpf} (Normal) Range: 0 - 2 WBC 0-5 {/hpf} (Normal) Range: 0 - 5 :06 PSA (PROSTATE SPECIFIC Comments: PATIENT WAS FASTINGPERFORMED BY: BeanStockd6370 [facility] [id number] ANTIGEN) (V76.44) Prostate Specific Ag, 3.8 ng/mL (Normal) Range: 0.0-4.0 Serum Comments: [employer] ECLIA methodology. .According to the [place] U[employer] Association, Serum PSA shoulddecrease and remain [...] of malignant disease. :06 URINALYSIS, W/ MICRO (54432) Comments: PATIENT WAS FASTINGPERFORMED BY: BeanStockd6370 [facility]Blue [facility] [id number] Microscopic Examination See below: (Normal) Comments: Microscopic was indicated and was performed. Microscopic Examination MICRON (Normal) Comments: Microscopic follows if indicated. Nitrite, Urine Negative (Normal) Urobilinogen,Semi-Qn 0.2 mg/dL (Normal) Range: 0.0-1.9 Bilirubin Negative (Normal) Occult Blood Negative (Normal) Ketones Negative (Normal) Glucose Negative (Normal) Protein Negative (Normal) WBC Esterase Negative (Normal) Appearance Clear (Normal) Urine-Color Yellow (Normal) pH 6.5 (Normal) Range: 5.0-7.5 Specific Bartlett 1.019 (Normal) Range: 1.005-1.030 07-Apr-20148:06 CBC WITH MANUAL DIFF Comments: PATIENT WAS FASTINGPERFORMED BY: [facility]CoCommunity Medical CenterOgvsoq6884 [facility] [id number] Information: [id number] (40086) Immature Grans (Abs) 0.0 {x10E3/uL} (Normal) Range: [...] PANEL, COMPREHENSIVE Comments: PATIENT WAS FASTINGPERFORMED BY: [facility]CoCommunity Medical CenterVrkvhb5536 [facility] [id number] (31593) ALT (SGPT) 21 [iU]/L (Normal) Range: 0-44 [...] mg/dL (Normal) Range: 65-99 :06 LIPID PANEL (13426) Comments: PATIENT WAS FASTINGPERFORMED BY: [facility] [id number] LDL/HDL Ratio 4.4 {ratio_units} (Abnormal) Range: 0.0-3.6 LDL Cholesterol Calc 122 mg/dL (Abnormal) Range: 0-99 VLDL Cholesterol Elvin 43 mg/dL (Abnormal) Range: 5-40 HDL Cholesterol 28 mg/dL (Abnormal) Comments: According to ATP-III Guidelines, HDL-C >59 mg/dL is considered anegative risk factor for CHD. Triglycerides 216 mg/dL (Abnormal) Range: 0-149 Cholesterol, Total 193 mg/dL (Normal) Range: 100-199 7-Sgc-794886:41 VARICELLA-ZOSTER ANTBODY Comments: PATIENT NOT FASTINGPERFORMED BY: AccuvantCommunity Medical CenterRotjba7335 [facility] [id number] Information: [id number] (07278) Varicella Zoster IgG 2.01 {index} (Normal) Comments: Nonimmune <0.91 Equivocal 0.91 - 1.09 Immune >1.09 02-Apr-20138:37 Microscopic Examination Comments: PATIENT WAS FASTINGPERFORMED BY: RadarFindUNM HospitalElwrvh8891 [facility] [id number] Bacteria None seen (Normal) Mucus Threads Present (Normal) Epithelial Cells (non renal) 0-10 {/hpf} (Normal) Range: 0 - 10 RBC 0-3 {/hpf} (Normal) Range: 0 - 3 WBC 0-5 {/hpf} (Normal) Range: 0 - 5 :37 URINALYSIS, W/ MICRO (59290) Comments: PATIENT WAS FASTINGPERFORMED BY: AccuvantCommunity Medical CenterKhrvig1690 [facility] [id number] Microscopic Examination See below: (Normal) Microscopic Examination MICRON (Normal) Comments: Microscopic follows if indicated. Nitrite, Urine Negative (Normal) Urobilinogen,Semi-Qn 1.0 mg/dL (Normal) Range: 0.0-1.9 Bilirubin Negative (Normal) Occult Blood Negative (Normal) Ketones Negative (Normal) Glucose Negative (Normal) Protein Negative (Normal) WBC Esterase Negative (Normal) Appearance Clear (Normal) Urine-Color Yellow (Normal) pH 6.0 (Normal) Range: 5.0-7.5 Specific Bartlett 1.021 (Normal) Range: 1.005-1.030 :37 CBC WITH MANUAL DIFF Comments: PATIENT WAS FASTINGPERFORMED BY: [employer] Rsrnmx1823 [facility] [id number] Information: [id number] (50532) Immature Grans (Abs) 0.0 {x10E3/uL} (Normal) Range: [...] (PROSTATE SPECIFIC Comments: PATIENT WAS FASTINGPERFORMED BY: BeanStockd6370 [facility] [id number] ANTIGEN) (V76.44) Prostate Specific Ag, 3.6 ng/mL (Normal) Range: 0.0-4.0 Serum Comments: FluxIA methodology. .According to the [place] U[employer] Association, Serum PSA shoulddecrease and remain at undetectable levels after radicalprostatectomy. The AUA defines biochemical recurrence as an initialPSA value 0.2 ng/mL or greater followed by a subsequent confirmatoryPSA value 0.2 ng/mL or greater.Values obtained with d ifferent assay methods or kits cannot be usedinterchangeably. Results cannot be interpreted as absolute evidenceof the presence or absence of malignant disease. :37 LIPID PANEL (27729) Comments: PATIENT WAS FASTINGPERFORMED BY: [employer]70 [facility] [id number] LDL/HDL Ratio 4.8 {ratio_units} (Abnormal) Range: 0.0-3.6 LDL Cholesterol Calc 133 mg/dL (Abnormal) Range: 0-99 HDL Cholesterol 28 mg/dL (Abnormal) Comments: According to ATP-III Guidelines, HDL-C >59 mg/dL is considered anegative risk factor for CHD. VLDL Cholesterol Elvin 37 mg/dL (Normal) Range: 5-40 Triglycerides 186 mg/dL (Abnormal) Range: 0-149 Cholesterol, Total 198 mg/dL (Normal) Range: 100-199 02-Apr-20138:37 METABOLIC PANEL, COMPREHENSIVE Comments: PATIENT WAS FASTINGPERFORMED BY: [employer]70 [facility]eguiC[facility] Hospital [id number] (93595) ALT (SGPT) 19 [iU]/L (Normal) Range: 0-44 [...] Glucose, Serum 94 mg/dL (Normal) Range: 65-99 97-Wsr-983480:43 PPD (23607) Comments: PT RECEIVED THIS AT WORK SKIN TEST INTRADERMAL TB negatvie (Normal) Comments: pt received this at work :33 LIPID PANEL (56075) Comments: PATIENT WAS FASTINGPERFORMED BY: [employer]70 [facility] [id number] LDL/HDL Ratio 3.8 {ratio_units} (Abnormal) Range: 0.0-3.6 [...] METABOLIC PANEL, Comments: PATIENT WAS FASTINGPERFORMED BY: [place]6370 [facility] [id number] Information: [id number] COMPREHENSIVE (69968) ALT (SGPT) 21 [iU]/L (Normal) Range: 0-55 [...] CHOL 193 mg/dL (Normal) Comments: <200 mg/dL Euhnpgsli294-104 mg/dL Borderline>240 mg/dL High Risk :27 BMP [...] Indication: Prostate cancer Prostate cancer : Reviewed Drawing Kiln Supervisor Letter Indication: Prostate cancer Hypertensive heart disease [...] Indication: Mixed hyperlipidemia Prostate cancer : Reviewed Drawing Kiln Supervisor Letter Indication: Prostate cancer Hypertensive 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 heart failure : HTN/CAD Red Flags Indication: Hypertensive 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 heart failure Mixed hyperlipidemia : Cholesterol mgmt Indication: Mixed hyperlipidemia Mixed hyperlipidemia : Follow up in 6 months Indication: Mixed hyperlipidemia Prostate cancer : Reviewed Drawing Kiln Supervisor Letter- urologist - dr Miller Indication: Prostate cancer Hypertensive 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 heart failure : HTN/CAD Red Flags Indication: Hypertensive 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 heart failure Mixed hyperlipidemia : Cholesterol mgmt Indication: Mixed hyperlipidemia Hepatocellular carcinoma : Reviewed Lab Indication: Hepatocellular carcinoma Encounter for screening for malignant neoplasm of prostate (Renamed from Screening for prostate cancer) : Reviewed Drawing Kiln Supervisor Letter Indication: Encounter for screening for malignant [...] without heart failure Prostate cancer : Reviewed Drawing Kiln Supervisor Letter- Dr Miller Indication: Prostate cancer Mixed hyperlipidemia : Cholesterol mgmt Indication: Mixed hyperlipidemia Hepatocellular carcinoma : Reviewed Lab: nornmal alpha feta prot Indication: Hepatocellular carcinoma Hepatocellular carcinoma : Reviewed Drawing Kiln Supervisor Letter Indication: Hepatocellular carcinoma Hepatocellular carcinoma : Reviewed Diagnostic Tests Indication: Hepatocellular carcinoma Prostate cancer : Reviewed Lab Indication: Prostate cancer Prostate cancer : Reviewed Drawing Kiln Supervisor Letter Indication: Prostate cancer Prostate cancer : [...] Depression : follow up with [facility] 10 days Indication: Depression Sinusitis, [...] disease without heart failure Planned Observations TSH (04757)Indication: Mixed hyperlipidemia On: Request URINALYSIS, W/ MICRO (47052)Indication: Hypertensive 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 heart failure On: Request MICROALBUMIN: CREATININE RATIO (22385) AND (84808)Indication: Hypertensive 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 heart failure On: Request METABOLIC PANEL, COMPREHENSIVE (22835)Indication: Hypertensive 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 heart failure On: Request CBC W/AUTO DIFF WBC (03546)Indication: Hypertensive 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 heart failure On: Request LIPOPROTEIN, BLD, BY NMR (94811)Indication: Mixed hyperlipidemia On: Request CALCIFEDIOL (26570)Indication: Vitamin D deficiency On: 75-Rxa-20778:01 Request LIPID PANEL (04125)Indication: Mixed hyperlipidemia On: :07 Request METABOLIC PANEL, COMPREHENSIVE (66495)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 On: :07 Request CBC W/AUTO DIFF WBC (48728)Indication: Lymphocytosis On: :07 Request LIPID PANEL (78099)Indication: Hypertensive 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 heart failure On: 9-Rqi-648930:39 Request METABOLIC PANEL, COMPREHENSIVE (18697)Indication: Hypertensive 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 heart failure On: 6-Zwg-761604:39 Request METABOLIC PANEL, COMPREHENSIVE (63834)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 On: 0-Orw-065429:08 Request HEPATIC FUNCTION PANEL (73241)Indication: Mixed hyperlipidemia On: 36-Bsg-642576:53 Request LIPID PANEL (46159)Indication: Mixed hyperlipidemia On: 26-Voy-766171:52 Request METABOLIC PANEL, COMPREHENSIVE (25056)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 On: 32-Weq-941942:09 Request LIPID PANEL ([id number])Indication: Mixed hyperlipidemia On: 35-Ohy-223144:09 Request METABOLIC PANEL, COMPREHENSIVE ([id number])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 On: 22-Pbe-729351:55 Request LIPID PANEL ([id number])Indication: Mixed hyperlipidemia On: 52-Kii-085385:54 Request CBC WITH MANUAL DIFF ([id number]) On: 20-Uxu-814987:57 Request Electrolyte Panel ([id number]) On: 80-Ifp-031560:57 Request LIPID PANEL ([id number])Indication: Mixed hyperlipidemia On: 48-Whh-487859:03 Request METABOLIC PANEL, COMPREHENSIVE ([id number])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 On: 12-Woq-397858:03 Request CBC WITH MANUAL DIFF ([id number])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 On: 34-Ivl-838401:03 Request METABOLIC PANEL, COMPREHENSIVE ([id number])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 On: 52-Xtl-796062:05 Request HEPATIC FUNCTION PANEL ([id number])Indication: Mixed hyperlipidemia On: 12-Twt-163488:05 Request Comments: 3 mos LIPID PANEL ([id number])Indication: Mixed hyperlipidemia On: 32-Pju-843234:05 Request Planned Encounters Medical; Walk Assessment - On: 19-Jun-2018 15:15 [facility] Visit, Nurse Medical; Hospital Follow Up - On: 28-Jun-2018 12:15 [facility] Swetha Pedersen DO, DO, Kathleen Planned Procedures ELECTROCARDIOGRAM, COMPLETE (ECG) On: 20-Nov-2017 Intent ([id number])By: Robyn Vergara Comments: nsr no acute cgh Flu Vaccine (Quadrivalent) [id number]: On: 22-May-2017 Intent Swetha Pedersen DO, DO, Comments: QUAD flu shotlot number: [id number]: 10/2017L Deltoid IMAD [employer] Swetha CYKI-[facility] BEHAVIORAL COUNSELING FOR On: 16-Jan-2017 Intent OBESITY, 15 MINUTES ([id number])By: Swetha Pedersen DO, DO, Kathleen ELECTROCARDIOGRAM, COMPLETE (ECG) On: 21-Nov-2016 Intent ([id number])By: Swetha Pedersen DO Comments: nsr no acute chg Swetha DOUGLAS ADMINISTRATION OF INFLUENZA VIRUS On: 27-Apr-2015 Intent VACCINE ([id number])By: Lisa Potter DO FLU VAC, SPLIT, >3 YEARS, INTRAMUSC On: 27-Apr-2015 Intent ([id number])By: Lisa Potter DO Comments: Lot:[id number]:12/13Dose:0.5mLRoute:IMSite:L DltdGiven By:AMBROSIO signed EKG ([id number])By: Lisa Potter DO On: 13-Oct-2014 Intent Comments: ekg showed normal sinus rhythym, normal axis, no acute st/t wave changes lvh IMMUNIZ ADMNIN, 1 VAC, SNGL/COMBO On: 07-Oct-2013 Intent ([id number])By: Lisa Potter DO Comments: Lot: [id number]: 65Qis81Dfb: 0.5mlRoute: IMSite: L detoidGiven by: ALYSSA Sotelo PNEUM VAC ADLT/IMUMNOSPR, SBC/INTRM On: 07-Oct-2013 Intent ([id number])By: Lisa Potter DO EKG ([id number])By: Lisa Potter DO On: 07-Oct-2013 Intent Comments: ekg- sinus with left axis and lvh no change compared to prvious FLU VAC, SPLIT, >3 YEARS, INTRAMUSC On: 10-Oct-2011 Intent ([id number])By: Mila Osullivan Comments: received 04/2011 TDAP VACCINE >7 IM ([id number])By: Shi, On: 10-Oct-2011 Intent Mila Comments: declines Eprescribed prescriptions ([id number])By: On: 01-Apr-2011 Intent Lisa Potter DO EKG ([id number])By: Mila Osullivan On: 12-Oct-2009 Intent EKG ([id number])By: Lisa Potter DO On: 25-Sep-2006 Intent Comments: [...] Advance Directives Name Dates Details Immunization Registry [place] - Effective on Effective: 22-May-201705/22/2017. Expiration date [...] patient does not have durable power of commission broker or living will. The patient has noticed [...] patient does not have durable power of commission broker or living will. 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 - he saw radiologist last - his apolinar and antismooth muscle ab positive hep c neg hepb a b elevated- he has procedure set up with Dr Yadav in [place]- he was told 2 treatment options for [...] he is going to go to the [facility] - no gallbladder symptoms and no [...] drink- 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 [employer]- he is keepingup with dentist- in [place] had abdominal/ so went to er- - [...] better- 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
--- OUTSIDE RECORDS SUMMARY | 2018-08-26 09:48 | XMS RPT_ITS | Continuity of Care Document ---
:1945 Author Organization [facility] Address [address] [place] [address] Phone Care Team Providers Name Role Phone [...] in size with no enhancem ent to [facility] recurrent disease,Diagnosed in 2015: 2 procedure [...] 16-Aug-2016 End : 15-Sep-2016 Inactive Vitamin D3 29420 UNIT Oral Capsule 1 (one) Capsule Capsule [...] Department Summary Result: Comments: See Note; NOTES: [facility] Medical Records Department [address] [place] [address] Emergency Department Summary 05/11/18 1307 MR#: [id number] Acct: [id number] Name: LUCAS EAST Rep #: [id number] : 1945 73 From: Cristina Lyles MD PCP: Swetha Pedersen DO Status: REG ER - ER Visit Summary Date of Service: 05/11/18 Chief Complaint: Wound check Histo ry of Present Illness: The patient is a 73 M presenting for wound check. Patient had surgery at [facility] on April 25 for a strangulated hernia. This was complicated by sepsis. [facility]. He was [...] acquired pneumonia. Discussed with Dr. Meeks at [facility]. He is in agreement that the patient can stay at [facility] as the patient wishes. Discussed with Dr. Hyde and patient will be admitted. Disposition: Admission Impression: Healthcare acquired pneumonia This note was generated with [employer] dictation software. It may contain incorrect words, [...] problems, contact your Primary Care Provider. Call [facility] ([phone]) or report to the closest Emergency Room. Call 911 if necessary. 05/11/18 1601 <Electronically signed by Shayne Lyles MD> Date Cristina Lyles MD Cosigner Signature (If Indicated): Date CC: Swetha Pedersen DO 11-May-2018 Acute Abdomen Inc Chest Result: Comments: See Note; NOTES: [facility] Imaging Services [address] [place] [address] Acute Abdomen Inc Chest MR#: [id number] Acct: [id number] Name: LUCAS EAST Rep #: [id number] : 1945 73 From: Benton [place] MD PCP: Swetha Pedersen DO Status: [facility] ER Study: Acute Abdomen Inc Chest Date of Exam: 05/11/18 Exam# [id number] Ordering Dr: Cristina Lyles MD JONATAN DY: [...] CC: Cristina Lyles MD; Swetha Pedersen DO 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 Will be transferred to [facility] as our ope rating room is down for cleaning. Discussed with our surgeon on-call Dr. Amezcua and also Dr. Cohen at [facility]. He will be transferred. Given morphine IV fluids and Zofran with good relief of sy mptoms Treatment Plan: [] Disposition: [] Impression: [] Incarcerated right inguinal hernia Small bowel obstruction secondary to incarcerated inguinal hernia Acute renal insufficiency Critical CARE time: 30-74 minutes This note was generated with Net 263ation software. It may contain incorrect words, spelling, [...] your Primary Care Provider. Call [facility] ([phone]) or report to the closest Emergency Room. Call 911 if necessar y. 04/21/18 0214 <Electronically signed by Bobby Walton MD> Date Bobby Walton MD Cosigner Signature (If Indicated): Date __ CC: Swetha Pedersen DO 20-Apr-2018 Abdomen/Pelvis without Cont Result: Comments: See Note; NOTES: [facility] Imaging Services [address] [place] [address] Abdomen/Pelvis without Cont MR#: [id number] Acct: [id number] Name: LUCAS EAST Nurys Rep # : [id number] : 1945 M 73 From: Laverne Ladd MD PCP: Swetha Pedersen DO Status: REG ER Study: Abdomen/Pelvis without Cont Date of Exam: 04/20/18 Exam# [id number] Ordering Dr: Bobby Walton STUDY: CT ABDOMEN [...] CC: Swetha Pedersen DO; Bobby Walton MD Forex 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: Signed 10-Nov-2014 Abdomen/Pelvis W/WO Contrast Result: Comments: See Note; NOTES: [facility] Imaging Services [address] [place] [address] CAT Scan Report MR#: [id number] Acct: [id number] Name: LUCAS EAST Rep #: [id number] : 1945 M 69 From: Salvatore Gomes DO PCP: Lias Potter DO Status: REG CLI Study: Abdomen/Pelvis W/WO Contrast Date of Exam: 11/10/14 Exam# [id number] Ordering Dr: Josef Patton MD [facility] DY: CT ABDOMEN AND PELVIS WITH AND [...] Gomes DO 11/10 at 13:34 EDT Tel [phone], Service support [phone], CC: Lisa Potter DO; Josef Patton Forex Trader: Signed Immunization Name Dates Details Pneumococcal (5 [...] smoker Vital Signs Date Test Result Details 50-Yqa-508953:02 Comments: 12/2017 last eye exam was tested [...] kg/m2 Body Surface Area Calculated 2.32 m2 76-Bhl-392033:05 Pulse 80 /min Comments: Pattern: Regular Respiration [...] Height 0 in Head Circumference 0.00 cm 37-Adh-543769:00 Temperature 98.1 f Comments: Method: Oral Pulse [...] 0.00 cm Results Date Description Value Details 23-Lub-872806:33 Basic Metabolic Profile (BMP) Comments: Send Results To: Swetha Hudson for Laboratory Test [facility] [address] [place], [place], [address] GAP 11 (Normal) Range: 5-15 CO2 28.0 [...] Comments: Please note revised GLUCOSE reference range iqkqumrtm26/02/2018. 67-Nee-522200:29 Urinalysis, Complete Comments: Order Date: 05/11/18How was Urine Obtained? CLEAN [facility] [address] [facility] [place], [address] MUCUS, URINE 2+ {/hpf} (Normal) [...] (Normal) CLARITY Clear (Normal) COLOR Yellow (Normal) 55-Wka-968031:19 Basic Metabolic Profile (BMP) Comments: [facility] [address] [facility]. [place], [place], [address] GAP 7 (Normal) Range: 5-15 CO2 25.0 [...] A.D.A. criteria.Please note revised GLUCOSE reference range frlxrofuv14/02/2018. 41-Dwh-954747:19 CBC W/Diff, Automated Comments: [facility] [address] [place], [place], [address] Absolute Lymph 1.73 {X10_3/ul} (Normal) Range: 0.83-4.51 [...] 4.6-6.2 WBC 7.5 K/mm3 (Normal) Range: 4.4-11.0 86-Wsb-717244:10 Basic Metabolic Profile (BMP) Comments: [facility] [address] [place], [place], [address] GAP 12 (Normal) Range: 5-15 CO2 22.0 [...] A.D.A. criteria.Please note revised GLUCOSE reference range atdoebxtz69/02/2018. 95-Crj-469278:10 CBC W/Diff, Automated Comments: [facility] [address] [place], [address] Absolute Lymph 2.70 {X10_3/ul} (Normal) [...] :10 Partial Thromboplast Time Comments: [facility] [address] [place], [address] PTT 39.8 s (Abnormal) Range: 24.1-36.2 :10 Prothrombin Time w/INR Comments: [facility] [address] [place], [address] INR 1.3 (Normal) PROTIME 16.3 s (Abnormal) Range: 11.7-14.9 :21 Microscopic Examination Comments: PATIENT WAS FASTINGPERFORMED BY: [facility] Omfyrh4117 [facility] [id number] Bacteria Few (Normal) Mucus Threads Present (Normal) Cast Type Hyaline casts (Normal) Casts Present {/lpf} (Abnormal) Epithelial Cells (non renal) 0-10 {/hpf} (Normal) Range: 0 - 10 RBC 0-2 {/hpf} (Normal) Range: 0 - 2 WBC 0-5 {/hpf} (Normal) Range: 0 - 5 :49 PSA,Total- Diagnostic Comments: [facility] [address] [place], [place], [address] PSA, DIAGNOSTIC 4.43 ng/mL (Abnormal) Range: 0.0-4.0 Comments: This test was performed using the TPSA assay method for [employer] chemistry system. Values obtained with differentassay methods cannot be used interchangably.When changing PSA assays in the course of monitoring apatient, additional sequential testing should be carriedout to confirm baseline values. 97-Pyr-239150:50 HgA1C , Office (79069) HgA1C , Office 5.7 % (Normal) Range: 4.6 - 7.1 :21 CALCIFEDIOL (66850) Comments: PATIENT WAS FASTINGPERFORMED BY: [facility] Bvkbqg8136 [facility] [id number] Vitamin D, 25-Hydroxy 49.2 ng/mL (Normal) Range: 30.0-100.0 Comments: Vitamin D deficiency has been defined by the [place] ofMedicine and an Endocrine Society practice guideline as alevel of serum 25-OH vitamin D less than 20 ng/mL (1,2).The Endocrine Society went on to further define vitamin Dinsufficiency as a level between 21 and 29 ng/mL (2).1. IOM ([place] of Medicine). 2010. Dietary reference intakes for calcium and D. [place]: The National Academies Press.2. Reuben MF, Stephanie NC, Radha MILLIGAN, et al. Evaluation, treatment, and prevention of vitamin D deficiency: an Endocrine Society clinical practice guideline. JCEM. 2010; 96(7):1911-30. :21 TSH (72213) Comments: PATIENT WAS FASTINGPERFORMED BY: [facility]6370 [facility] [id number] TSH 2.900 {uIU/mL} (Normal) Range: 0.450-4.500 :21 URINALYSIS, W/ MICRO (36547) Comments: PATIENT WAS FASTINGPERFORMED BY: [facility]6370 [facility] [id number] Microscopic Examination See below: (Normal) Comments: Microscopic was indicated and was performed. Microscopic Examination MICRON (Normal) Comments: Microscopic follows if indicated. Nitrite, Urine Negative (Normal) Urobilinogen,Semi-Qn 0.2 mg/dL (Normal) Range: 0.2-1.0 Bilirubin Negative (Normal) Occult Blood Negative (Normal) Ketones Negative (Normal) Glucose Negative (Normal) Protein Negative (Normal) WBC Esterase Negative (Normal) Appearance Clear (Normal) Urine-Color Yellow (Normal) pH 5.0 (Normal) Range: 5.0-7.5 Specific [place] 1.016 (Normal) Range: 1.005-1.030 :21 MICROALBUMIN: CREATININE RATIO Comments: PATIENT WAS FASTINGPERFORMED BY: [facility]6[address] [facility] [id number] (21078) AND (86819) Alb/Creat Ratio <3.8 {mg/g_creat} (Normal) Range: 0.0-30.0 Albumin, Urine <3.0 ug/mL (Normal) Creatinine, Urine 79.5 mg/dL (Normal) :21 METABOLIC PANEL, COMPREHENSIVE Comments: PATIENT WAS FASTINGPERFORMED BY: [facility]6[address] [facility] [id number] (95508) ALT (SGPT) 16 [iU]/L (Normal) Range: 0-44 [...] 8-27 Glucose 94 mg/dL (Normal) Range: 65-99 43-Hmz-17012:21 CBC W/AUTO DIFF WBC (82995) Comments: PATIENT WAS FASTINGPERFORMED BY: [facility]CoBacharach Institute for RehabilitationSlxmrz2061 [facility] [id number] Immature Grans (Abs) 0.0 {x10E3/uL} (Normal) Range: [...] {x10E3/uL} (Normal) Range: 3.4-10.8 :21 LIPID PANEL (84439) Comments: PATIENT WAS FASTINGPERFORMED BY: [employer]70 [address] [facility] HealthArbovaxCritical access hospital [id number] LDL/HDL Ratio 3.0 {ratio} (Normal) Range: 0.0-3.6 [...] Microscopic Examination Comments: PATIENT WAS FASTINGPERFORMED BY: [employer] [facility] Rieiaw5399 [address] [facility] [id number] Bacteria None seen (Normal) Mucus Threads Present (Normal) Epithelial Cells (non renal) 0-10 {/hpf} (Normal) Range: 0 - 10 RBC 0-2 {/hpf} (Normal) Range: 0 - 2 WBC 0-5 {/hpf} (Normal) Range: 0 - 5 :12 PSA,Total- Diagnostic Comments: [facility] [address] [place], [address] PSA, DIAGNOSTIC 4.20 ng/mL (Abnormal) Range: 0.0-4.0 Comments: This test was performed using the TPSA assay method for [employer] chemistry system. Values obtained with differentassay methods cannot be used interchangably.When changing PSA assays in the course of monitoring apatient, additional sequential testing should be carriedout to confirm baseline values. :49 TSH (48050) Comments: PATIENT WAS FASTINGPERFORMED BY: [employer] Vjrwbw3838 [address] RoadDublin [place] [id number] TSH 3.530 {uIU/mL} (Normal) Range: 0.450-4.500 :49 CALCIFEDIOL (42189) Comments: PATIENT WAS FASTINGPERFORMED BY: [employer] Mkdbef9579 [address]ostegui RoadDublin [place] [id number] Vitamin D, 25-Hydroxy 28.4 ng/mL (Abnormal) Range: 30.0-100.0 Comments: Vitamin D deficiency has been defined by the [place] ofMedicine and an Endocrine Society practice guideline as alevel of serum 25-OH vitamin D less than 20 ng/mL (1,2).The Endocrine Society went on to further define vitamin Dinsufficiency as a level between 21 and 29 ng/mL (2).1. IOM ([place] of Medicine). 2010. Dietary reference intakes for calcium and D. [place]: The National Academies Press.2. Reuben MF, Stephanie NC, Radha MILLIGAN, et al. Evaluation, treatment, and prevention of vitamin D deficiency: an Endocrine Society clinical practice guideline. JCEM. 2010; 96(7):1911-30. :49 URINALYSIS, W/ MICRO (10462) Comments: PATIENT WAS FASTINGPERFORMED BY: [facility] Tolkqu9728 Uriostegui RoadDublin [place] [id number] Microscopic Examination See below: (Normal) Comments: Microscopic was indicated and was performed. Microscopic Examination MICRON (Normal) Comments: Microscopic follows if indicated. Nitrite, Urine Negative (Normal) Urobilinogen,Semi-Qn 0.2 mg/dL (Normal) Range: 0.2-1.0 Bilirubin Negative (Normal) Occult Blood Negative (Normal) Ketones Negative (Normal) Glucose Negative (Normal) Protein Negative (Normal) WBC Esterase Negative (Normal) Appearance Clear (Normal) Urine-Color Yellow (Normal) pH 5.5 (Normal) Range: 5.0-7.5 Specific [place] 1.018 (Normal) Range: 1.005-1.030 :49 MICROALBUMIN: CREATININE RATIO Comments: PATIENT WAS FASTINGPERFORMED BY: [employer]70 [address] [facility] [id number] (04233) AND (92134) Alb/Creat Ratio <3.0 {mg/g_creat} (Normal) Range: 0.0-30.0 Albumin, Urine <3.0 ug/mL (Normal) Creatinine, Urine 101.1 mg/dL (Normal) :49 METABOLIC PANEL, COMPREHENSIVE Comments: PATIENT WAS FASTINGPERFORMED BY: [employer]70 [facility]sourceCritical access hospital [id number] (09224) ALT (SGPT) 17 [iU]/L (Normal) Range: 0-44 [...] Range: 65-99 :49 CBC W/AUTO DIFF WBC (85732) Comments: PATIENT WAS FASTINGPERFORMED BY: [facility]6370 [facility] [id number] Immature Grans (Abs) 0.0 {x10E3/uL} (Normal) Range: [...] {x10E3/uL} (Normal) Range: 3.4-10.8 :49 LIPID PANEL (03873) Comments: PATIENT WAS FASTINGPERFORMED BY: [facility] Wfiyoh2149 [facility] [id number] LDL/HDL Ratio 4.3 {ratio} (Abnormal) Range: 0.0-3.6 Comments: LDL/HDL Ratio Men Women 1/2 Avg.Risk 1.0 1.5 Av g.Risk 3.6 3.2 2X Avg.Risk 6.2 5.0 3X Avg.Risk 8.0 6.1 LDL Cholesterol Calc 149 mg/dL (Abnormal) Range: 0-99 VLDL Cholesterol Elvin 36 mg/dL (Normal) Range: 5-40 HDL Cholesterol 35 mg/dL (Abnormal) Triglycerides 181 mg/dL (Abnormal) Range: 0-149 Cholesterol, Total 220 mg/dL (Abnormal) Range: 100-199 56-Vgh-202825:47 Microscopic Examination Comments: PATIENT WAS FASTINGPERFORMED BY: [facility] Rcjxrv4423 [facility] [id number] Bacteria Few (Normal) Mucus Threads Present (Normal) Epithelial Cells (non renal) 0-10 {/hpf} (Normal) Range: 0 - 10 RBC 0-2 {/hpf} (Normal) Range: 0 - 2 WBC 0-5 {/hpf} (Normal) Range: 0 - 5 :53 AFP, Tumor Marker Comments: FAX AFP RESULTS TO [id number] Patient ? NComments: ALPHA FETOPROTIEN,SERUM RTLabCorp (refer to report for specific site)refer to report for address and phone number AFP TUMOR 2253 3.1 ng/mL (Normal) Range: 0.0-8.3 Comments: Melodie ECLIA methodology :53 Basic Metabolic Profile (BMP) Comments: Comments: ALPHA FETOPROTIEN,SERUM RTChildren'S [facility] [address] [place], [place], [address] GAP 5 (Normal) Range: 5-15 CO2 29.0 [...] :53 Liver Profile Comments: Comments: ALPHA FETOPROTIEN,SERUM [facility] [address] [place], [place], [address] D BILI 0.24 mg/dL (Normal) Range: 0.00-0.30 T BILI 1.10 mg/dL (Abnormal) Range: 0.20-1.00 ALT 30 U/L (Normal) Range: 12-78 ALK P 85 U/L (Normal) Range: 45-117 AST 17 U/L (Normal) Range: 15-37 GLOB 3.5 g/dL (Normal) Range: 2.3-3.5 ALB 3.9 g/dL (Normal) Range: 3.4-5.0 T PROT 7.4 g/dL (Normal) Range: 6.4-8.2 :53 Phosphorus Comments: Comments: ALPHA FETOPROTIEN,SERUM [facility] [address] [place], [address] PHOS 2.6 mg/dL (Normal) Range: 2.5-4.9 :53 Prothrombin Time w/INR Comments: [facility] [address] [place], [place], [address] INR 1.1 (Normal) PROTIME 13.7 s (Normal) Range: 11.7-14.9 :47 TSH (02261) Comments: PATIENT WAS FASTINGPERFORMED BY: LabCoBacharach Institute for RehabilitationAnutzi6143 [facility] [id number] TSH 1.580 {uIU/mL} (Normal) Range: 0.450-4.500 :47 URINALYSIS, W/ MICRO (53215) Comments: PATIENT WAS FASTINGPERFORMED BY: [facility]6370 [facility] [id number] Microscopic Examination See below: (Normal) Comments: Microscopic was indicated and was performed. Microscopic Examination MICRON (Normal) Comments: Microscopic follows if indicated. Nitrite, Urine Negative (Normal) Urobilinogen,Semi-Qn 0.2 mg/dL (Normal) Range: 0.2-1.0 Bilirubin Negative (Normal) Occult Blood Negative (Normal) Ketones Negative (Normal) Glucose Negative (Normal) Protein Negative (Normal) WBC Esterase Negative (Normal) Appearance Clear (Normal) Urine-Color Yellow (Normal) pH 5.5 (Normal) Range: 5.0-7.5 Specific [place] 1.026 (Normal) Range: 1.005-1.030 :47 MICROALBUMIN: CREATININE RATIO Comments: PATIENT WAS FASTINGPERFORMED BY: [place] 1594870 [facility] [id number] (40059) AND (05643) Microalb/Creat Ratio 3.1 {mg/g_creat} (Normal) Range: 0.0-30.0 Microalbumin, Urine 5.4 ug/mL (Normal) Creatinine, Urine 172.4 mg/dL (Normal) :47 METABOLIC PANEL, COMPREHENSIVE Comments: PATIENT WAS FASTINGPERFORMED BY: [place] 1594870 [facility] [id number] (84025) ALT (SGPT) 19 [iU]/L (Normal) Range: 0-44 [...] Glucose, Serum 99 mg/dL (Normal) Range: 65-99 75-Tnn-540002:47 CBC W/AUTO DIFF WBC (07243) Comments: PATIENT WAS FASTINGPERFORMED BY: LabCoBacharach Institute for RehabilitationXotuym9235 [facility] [id number] Immature Grans (Abs) 0.0 {x10E3/uL} (Normal) Range: [...] {x10E3/uL} (Normal) Range: 3.4-10.8 :47 LIPID PANEL (24081) Comments: PATIENT WAS FASTINGPERFORMED BY: LabCoBacharach Institute for RehabilitationRggahl4918 [facility] [id number]; will review on 05/22 LDL/HDL Ratio 3.6 [...] Cholesterol, Total 184 mg/dL (Normal) Range: 100-199 8-Zoi-756876:09 PSA,Total- Diagnostic Comments: [facility] [address] [place], [address] PSA, DIAGNOSTIC 6.85 ng/mL (Abnormal) Range: 0.0-4.0 Comments: This test was performed using the TPSA assay method for [employer] chemistry system. Values obtained with differentassay methods cannot be used interchangably.When changing PSA assays in the course of monitoring apatient, additional sequential testing should be carriedout to confirm baseline values. 6-Mkg-290993:53 AFP, Tumor Marker Comments: Is Patient ? NComments: N/ALabCorp (refer to report for specific site)refer to report for address and phone number AFP TUMOR 2253 2.1 ng/mL (Normal) Range: 0.0-8.3 Comments: Melodie ECLIA methodologyPerformed at: CB - [facility] [address] [id number] Director: Josef Ventura PhD, Phone: [phone] 0-Efz-557471:53 Basic Metabolic Profile (BMP) Comments: Comments: [facility] [address] [place], [address] GAP 8 (Normal) Range: 5-15 [...] 7-18 GLU 104 mg/dL (Normal) Range: 70-110 6-Gvi-864013:53 Liver Profile Comments: Comments: [facility] [address] [place], [address] D BILI 0.23 mg/dL (Normal) Range: 0.00-0.30 T BILI 1.00 mg/dL (Normal) Range: 0.20-1.00 ALT 26 U/L (Normal) Range: 12-78 ALK P 98 U/L (Normal) Range: 45-117 AST 19 U/L (Normal) Range: 15-37 GLOB 3.8 g/dL (Abnormal) Range: 2.3-3.5 ALB 3.9 g/dL (Normal) Range: 3.4-5.0 T PROT 7.7 g/dL (Normal) Range: 6.4-8.2 :53 Phosphorus Comments: Comments: N/[facility] [address] [place], [address] PHOS 2.3 mg/dL (Abnormal) Range: 2.5-4.9 :53 Prothrombin Time w/INR Comments: [facility] [address] [place], [address] INR 1.1 (Normal) PROTIME 13.4 s (Normal) Range: 11.7-14.9 65-Twh-982193:24 MICROALBUMIN: CREATININE RATIO Comments: PATIENT WAS FASTINGPERFORMED BY: [employer] [facility] [id number] (78270) AND (24884) Microalb/Creat Ratio 5.7 {mg/g_creat} (Normal) Range: 0.0-30.0 Microalbumin, Urine 9.7 ug/mL (Normal) Creatinine, Urine 169.8 mg/dL (Normal) 61-Nik-672055:24 VITAMIN B12 AND FOLATES Comments: PATIENT WAS FASTINGPERFORMED BY: [email or web address]6370 [facility] [id number] (84122) Folate (Folic Acid), Serum >20.0 ng/mL (Normal) Comments: A serum folate concentration of less than 3.1 ng/mL isconsidered to represent clinical deficiency. Vitamin B12 323 pg/mL (Normal) Range: 211-946 65-Avg-021735:24 CALCIFEDIOL (78222) Comments: PATIENT WAS FASTINGPERFORMED BY: [email or web address]6370 [facility] [id number] Vitamin D, 25-Hydroxy 33.2 ng/mL (Normal) Range: 30.0-100.0 Comments: Vitamin D deficiency has been defined by the [place] of[place]icine and an Endocrine Society practice guideline as alevel of serum 25-OH vitamin D less than 20 ng/mL (1,2).The Endocrine Society went on to further define vitamin Dinsufficiency as a level between 21 and 29 ng/mL (2).1. IOM ([place] of Medicine). 2010. Dietary reference intakes for calcium and D. [place]: The National Academies Press.2. Reuben MF, Stephanie CLARK, Radha MILLIGAN, et al. Evaluation, treatment, and prevention of vitamin D deficiency: an Endocrine Society clinical practice guideline. JCEM. 2010; 96(7):1911-30. 01-Wgq-893752:24 TSH (THYROID STIMULATING Comments: PATIENT WAS FASTINGPERFORMED BY: [facility]akerCritical access hospital [id number] HORMONE) (80194) TSH 2.410 {uIU/mL} (Normal) Range: 0.450-4.500 :24 LIPID PANEL (39319) Comments: PATIENT WAS FASTINGPERFORMED BY: [email or web address] [address] [facility] [id number] LDL/HDL Ratio 3.7 {ratio_units} (Abnormal) Range: 0.0-3.6 [...] PANEL, COMPREHENSIVE Comments: PATIENT WAS FASTINGPERFORMED BY: [employer] [address] [facility] [id number] (53432) ALT (SGPT) 30 [iU]/L (Normal) Range: 0-44 [...] Glucose, Serum 99 mg/dL (Normal) Range: 65-99 06-Inx-491445:24 CBC, PLATELETS & AUT DIFF Comments: PATIENT WAS FASTINGPERFORMED BY: [facility] Zmxmzl7075 [facility] [id number]; fu 4-24 KF (27540) Immature Grans (Abs) 0.0 {x10E3/uL} (Normal) Range: [...] 2253 2.6 ng/mL (Normal) Range: 0.0-8.3 Comments: [employer] ECLIA methodologyPerformed at: [employer] - [facility] [place] [id number] Director: Josef Ventura PhD, Phone: [phone] 72-Ktp-15794:30 Bilirubin, Direct Comments: [facility] [address]cyg[address] [facility] [place], [place], [id number] D BILI 0.29 mg/dL (Normal) Range: 0.00-0.30 :30 Comprehensive Metabolic Profil Comments: [facility] [address]udpvxpd62[address] [facility]. [place], [place], [address] GAP 8 (Normal) Range: 5-15 CO2 26.0 [...] 7-18 GLU 102 mg/dL (Normal) Range: 70-110 42-Sdn-81861:30 Phosphorus Comments: [facility] [address] [facility] [address] [place], [place], [address] PHOS 2.4 mg/dL (Abnormal) Range: 2.5-4.9 :30 Prothrombin Time w/INR Comments: [facility] [address] [place], [place], [address] INR 1.1 (Normal) PROTIME 13.4 s (Normal) Range: 11.7-14.9 :35 CALCIFEDIOL (10210) Comments: PATIENT WAS FASTINGPERFORMED BY: [facility]University [facility]6370 [facility] [id number] Vitamin D, 25-Hydroxy 45.6 ng/mL (Normal) Range: 30.0-100.0 Comments: Vitamin D deficiency has been defined by the [place] ofMedicine and an Endocrine Society practice guideline as alevel of serum 25-OH vitamin D less than 20 ng/mL (1,2).The Endocrine Society went on to further define vitamin Dinsufficiency as a level between 21 and 29 ng/mL (2).1. IOM ([place] of Medicine). 2010. Dietary reference intakes for calcium and D. [place]: The National Academies Press.2. Reuben MF, Stephanie CLARK, Radha MILLIGAN, et al. Evaluation, treatment, and prevention of vitamin D deficiency: an Endocrine Society clinical practice guideline. JCEM. 2010; 96(7):1911-30. :35 METABOLIC PANEL, COMPREHENSIVE Comments: PATIENT WAS FASTINGPERFORMED BY: [facility]CoBacharach Institute for RehabilitationRsfzgt6184 [facility] [id number] (26417) ALT (SGPT) 18 [iU]/L (Normal) Range: 0-44 [...] mg/dL (Abnormal) Range: 65-99 :35 LIPID PANEL (08073) Comments: PATIENT WAS FASTINGPERFORMED BY: [facility] Naoepk8193 [facility] [id number] LDL/HDL Ratio 4.4 {ratio_units} (Abnormal) Range: 0.0-3.6 Comments: LDL/HDL Ratio Men Women 1/2 Avg.Risk 1.0 1.5 Av g.Risk 3.6 3.2 2X Avg.Risk 6.2 5.0 3X Avg.Risk 8.0 6.1 LDL Cholesterol Calc 151 mg/dL (Abnormal) Range: 0-99 VLDL Cholesterol Elvin 33 mg/dL (Normal) Range: 5-40 HDL Cholesterol 34 mg/dL (Abnormal) Triglycerides 165 mg/dL (Abnormal) Range: 0-149 Cholesterol, Total 218 mg/dL (Abnormal) Range: 100-199 72-Qis-486033:13 PSA,Total- Diagnostic Comments: [facility] [address] [place], [address] PSA, DIAGNOSTIC 6.86 ng/mL (Abnormal) Range: 0.0-4.0 Comments: This test was performed using the TPSA assay method for [employer] chemistry system. Values obtained with differentassay methods cannot be used interchangably.When changing PSA assays in the course of monitoring apatient, additional sequential testing should be carriedout to confirm baseline values. 37-Lpo-700839:29 HgA1C , Office (84610) HgA1C , Office 5.6 % (Normal) Range: 4.6 - 7.1 :19 AFP, Tumor Marker Comments: Is [facility] ? [facility] (refer to report for specific site)refer to report for address and phone number AFP TUMOR 2253 3.8 ng/mL (Normal) Range: 0.0-8.3 Comments: Melodie ECLIA methodologyPerformed at: - [facility] [address] [id number] Director: Josef Ventura PhD, Phone: [phone] :[phone] Basic Metabolic Profile (BMP) Comments: [facility] [address] [place], [address] GAP 6 (Normal) Range: 5-15 CO2 27.0 [...] :19 CBC W/Diff, Automated Comments: [facility] [address] [place], [place], [address] Absolute Lymph 2.14 {X10_3/ul} (Normal) Range: 0.83-4.51 [...] 4.4-11.0 :19 Liver Profile Comments: [facility] [address] [facility] [address] [place], [place], [id number] D BILI 0.21 mg/dL (Normal) Range: 0.00-0.30 T BILI 1.50 mg/dL (Abnormal) Range: 0.20-1.00 ALT 23 U/L (Normal) Range: 12-78 ALK P 89 U/L (Normal) Range: 50-136 AST 15 U/L (Normal) Range: 15-37 GLOB 3.6 g/dL (Abnormal) Range: 2.3-3.5 ALB 3.7 g/dL (Normal) Range: 3.4-5.0 T PROT 7.3 g/dL (Normal) Range: 6.4-8.2 :19 Phosphorus Comments: [facility] [address] [place], [place], [address] PHOS 2.5 mg/dL (Normal) Range: 2.5-4.9 :19 Prothrombin Time w/INR Comments: [facility] [address] [facility] [address] [place], [place], [address] INR 1.1 (Normal) PROTIME 13.6 s (Normal) Range: 11.7-14.9 65-Ijm-561897:21 VITAMIN B12 AND FOLATES Comments: PATIENT WAS FASTINGPERFORMED BY: LabCoBacharach Institute for RehabilitationWufoct2755 [facility] [id number] (68947) Folate (Folic Acid), Serum >20.0 ng/mL (Normal) Comments: A serum folate concentration of less than 3.1 ng/mL isconsidered to represent clinical deficiency. Vitamin B12 358 pg/mL (Normal) Range: 211-946 02-Rxf-362999:21 CALCIFEDIOL (38333) Comments: PATIENT WAS FASTINGPERFORMED BY: Filmmortal Fmrxxj0368 [facility] [id number] Vitamin D, 25-Hydroxy 18.2 ng/mL (Abnormal) Range: 30.0-100.0 Comments: Vitamin D deficiency has been defined by the [place] of[place] and an Endocrine Society practice guideline as alevel of serum 25-OH vitamin D less than 20 ng/mL (1,2).The Endocrine Society went on to further define vitamin Dinsufficiency as a level between 21 and 29 ng/mL (2).1. IOM ([place] of Medicine). 2010. Dietary reference intakes for calcium and D. [place]: The National Academies Press.2. Reuben MF, Stephanie CLARK, Radha MILLIGAN, et al. Evaluation, treatment, and prevention of vitamin D deficiency: an Endocrine Society clinical practice guideline. JCEM. 2010; 96(7):1911-30. 67-Isk-835323:21 LIPID PANEL (82755) Comments: PATIENT WAS FASTINGPERFORMED BY: Bountii [facility] [id number] VLDL Cholesterol Elvin VLDLCH mg/dL (Normal) Range: [...] PANEL, COMPREHENSIVE Comments: PATIENT WAS FASTINGPERFORMED BY: Filmmortal Zsippk0540 [facility] [id number] (61463) ALT (SGPT) 17 [iU]/L (Normal) Range: 0-44 [...] Glucose, Serum 102 mg/dL (Abnormal) Range: 65-99 04-Kbq-442324:21 CBC, PLATELETS & AUT DIFF Comments: PATIENT WAS FASTINGPERFORMED BY: LabCoBacharach Institute for RehabilitationEmymog0527 [facility] [id number] ([id number]) Immature Grans (Abs) 0.0 {x10E3/uL} (Normal) Range: [...] Examination Comments: PATIENT WAS FASTINGPERFORMED BY: [facility] Izjdkb1116 [facility] [id number] Bacteria None seen (Normal) Mucus Threads Present (Normal) Epithelial Cells (non renal) 0-10 {/hpf} (Normal) Range: 0 - 10 RBC 0-2 {/hpf} (Normal) Range: 0 - 2 WBC 0-5 {/hpf} (Normal) Range: 0 - 5 :22 Basic Metabolic Profile (BMP) Comments: PLEASE ADD LIVER TO BLOOD FROM THIS [facility] [address] [place], [place], [id number] GAP 6 (Normal) Range: 5-15 CO2 28.0 [...] 07-Jan-20168:22 CBC W/Diff, Automated Comments: [facility] [address] [place], [address] Absolute Lymph 2.03 {X10_3/ul} (Normal) Range: 0.83-4.51 [...] PLEASE ADD LIVER TO BLOOD FROM THIS [facility] [address] [place], [id number] D BILI 0.23 mg/dL (Normal) Range: 0.00-0.30 T BILI 1.60 mg/dL (Abnormal) Range: 0.20-1.00 ALT 27 U/L (Normal) Range: 12-78 ALK P 95 U/L (Normal) Range: 50-136 AST 17 U/L (Normal) Range: 15-37 GLOB 3.6 g/dL (Abnormal) Range: 2.3-3.5 ALB 3.9 g/dL (Normal) Range: 3.4-5.0 T PROT 7.5 g/dL (Normal) Range: 6.4-8.2 :22 Phosphorus Comments: PLEASE ADD LIVER TO BLOOD FROM THIS [facility] [address] [place], [place], [address] PHOS 2.5 mg/dL (Normal) Range: 2.5-4.9 :22 Prothrombin Time w/INR Comments: [facility] [address] [place], [place], [address] INR 1.1 (Normal) PROTIME 13.6 s (Normal) Range: 11.7-14.9 :49 URINALYSIS, W/ MICRO (51565) Comments: PATIENT WAS FASTINGPERFORMED BY: [facility]CoB[facility] Institute for RehabilitationEzqrpu3172 [facility] [id number] Microscopic Examination See below: (Normal) Comments: Microscopic was indicated and was performed. Microscopic Examination MICRON (Normal) Comments: Microscopic follows if indicated. Nitrite, Urine Negative (Normal) Urobilinogen,Semi-Qn 0.2 mg/dL (Normal) Range: 0.2-1.0 Bilirubin Negative (Normal) Occult Blood Negative (Normal) Ketones Trace (Abnormal) Glucose Negative (Normal) Protein Negative (Normal) WBC Esterase Negative (Normal) Appearance Clear (Normal) Urine-Color Yellow (Normal) pH 6.0 (Normal) Range: 5.0-7.5 Specific [place] 1.030 (Normal) Range: 1.005-1.030 :49 CBC W/AUTO DIFF WBC Comments: PATIENT WAS FASTINGPERFORMED BY: SARA FilmmortalCHRISTUS St. Vincent Physicians Medical CenterEpygsy3977 [facility] [id number] Information: [id number] (72805) Immature Grans (Abs) 0.0 {x10E3/uL} (Normal) Range: [...] {x10E3/uL} (Normal) Range: 3.4-10.8 :49 LIPID PANEL (28533) Comments: PATIENT WAS FASTINGPERFORMED BY: FilmmortalCHRISTUS St. Vincent Physicians Medical CenterFyfydr3902 [facility] [id number] LDL/HDL Ratio 4.5 {ratio_units} (Abnormal) Range: 0.0-3.6 [...] PANEL, COMPREHENSIVE Comments: PATIENT WAS FASTINGPERFORMED BY: [facility]CoB[facility] Institute for RehabilitationSzqcbq9596 [facility] [id number] (39233) ALT (SGPT) 15 [iU]/L (Normal) Range: 0-44 [...] Glucose, Serum 101 mg/dL (Abnormal) Range: 65-99 32-Xyv-263609:17 Serum Creatinine AND GFR Comments: [facility] [address] [place], [place], [address] EST GFR - AA 97 mL/min (Normal) Comments: GFR Calc EST GFR 80 mL/min (Normal) Comments: Non- GFR Calc CREAT,SERUM 0.98 mg/dL (Normal) Range: 0.70-1.30 Comments: The validity of the calculated GFR AND GFRAA in patients over70 years has not been determined. Clinical correlation isessential. :03 METABOLIC PANEL, Comments: PATIENT WAS FASTINGPERFORMED BY: [facility]CoB[facility] Institute for RehabilitationSdzyyz4678 [facility] [id number] Information: [id number] COMPREHENSIVE (19346) ALT (SGPT) 22 [iU]/L (Normal) Range: 0-44 [...] (PROSTATE SPECIFIC Comments: PATIENT WAS FASTINGPERFORMED BY: [facility]6370 [facility] [id number] ANTIGEN) (V76.44) Prostate Specific Ag, 4.5 ng/mL (Abnormal) Range: 0.0-4.0 Serum Comments: [employer] RewardsIA methodology. .According to the [place] [employer], Serum PSA shoulddecrease and remain at undetectable levels after radicalprostatectomy. The AUA defines biochemical recurrence as an initialPSA value 0.2 ng/mL or greater followed by a subsequent confirmatoryPSA value 0.2 ng/mL or greater.Values obtained with d ifferent assay methods or kits cannot be usedinterchangeably. Results cannot be interpreted as absolute evidenceof the presence or absence of malignant disease. 27-Awg-446516:38 CBC-Complete Blood Cnt No Diff Comments: [facility] [address] [place], [address] MPV 10.0 fL (Normal) Range: 6.2-12.0 PLT [...] 4.6-6.2 WBC 5.9 K/mm3 (Normal) Range: 4.4-11.0 84-Aul-121640:38 Comprehensive Metabolic Profil Comments: [facility] [address] [place], [address] GAP 7 (Normal) Range: 5-15 CO2 27.0 [...] 7-18 GLU 95 mg/dL (Normal) Range: 70-110 31-Tso-760718:38 Partial Thromboplast Time Comments: [facility] [address] [place], [address] PTT 34.2 s (Normal) Range: 24.1-36.2 70-Hvs-188489:38 Prothrombin Time w/INR Comments: [facility] [address] [place], [address] INR 1.1 (Normal) PROTIME 14.0 s (Normal) Range: 11.7-14.9 16-Qra-639122:47 CBC-Complete Blood Cnt No Diff Comments: [facility] [address] [place], [place], [address] MPV 10.4 fL (Normal) Range: 6.2-12.0 PLT [...] 4.6-6.2 WBC 5.4 K/mm3 (Normal) Range: 4.4-11.0 37-Lmz-982663:47 Comprehensive Metabolic Profil Comments: [facility] [address] [place], [place], [address] GAP 7 (Normal) Range: 5-15 CO2 28.0 [...] 7-18 GLU 86 mg/dL (Normal) Range: 70-110 37-Aex-137578:47 Partial Thromboplast Time Comments: [facility] [address] [place], [place], [address] PTT 35.1 s (Normal) Range: 24.1-36.2 :47 Prothrombin Time w/INR Comments: [facility] [address] [place], [place], [address] INR 1.0 (Normal) PROTIME 13.1 s (Normal) Range: 11.7-14.9 :23 CBC W/Diff, Automated Comments: Test performed at:[address] [address] Absolute Lymph 1.72 {X10_3/ul} (Normal) Range: 0.83-4.51 [...] Metabolic Profil Comments: Test performed at:[facility] [address] [place], [place] [address] GAP 10 (Normal) Range: 5-15 CO2 26.0 [...] Comments: Please note revised CREATININE reference range nozixstkm70/22/2015. BUN 12 mg/dL (Normal) Range: 7-18 GLU 132 mg/dL (Abnormal) Range: 70-110 Comments: Fasting Glucose result greater than or equal to 126 mg/dLsuggests DIABETES MELLITUS per A.D.A. criteria. 07-Apr-20158:23 Prothrombin Time w/INR Comments: Test performed at:[facility] [address] [place] [address] INR 1.0 (Normal) PROTIME 13.7 s (Normal) Range: 11.7-14.9 0-Qtb-093886:25 AFP, Tumor Marker Comments: Is Patient ? NTest performed at:[facility] [address] [place] [address] AFP TUMOR 2253 578.5 ng/mL (Abnormal) Range: 0.0-8.3 Comments: Meloide ECLIA methodologyPerformed at: [facility] Filmmortal[address] [id number] Director: Toy Walls MD, Phone: [phone] at: [facility] [employer] [id number] Director: Lalo Murphy PhD, Phone: [phone] 1-Yaa-477242:25 Hepatitis B C Genotype Comments: Is Patient ? NTest performed at:[facility] [address] [place] [address] COMMENT Comment (Normal) Comments: This test was developed and its performance characteristicsdetermined by [employer]. It has not been cleared or approvedby [...] HEP C GENOTYPE Test not performed (Normal) 9-Gfs-732817:25 Hepatitis C,RNA PCR Viral Load Comments: Is Patient ? NTest performed at:[facility] [address] [place], [place] [address] TEST INFO: Comment (Normal) Comments: The quantitative [...] Not Detected {IU/mL} (Normal) :14 LIPID PANEL (10504) Comments: PATIENT WAS FASTINGPERFORMED BY: [employer] [facility] [id number]; non-emergent till apt LDL/HDL Ratio 6.1 {ratio_units} [...] METABOLIC PANEL, Comments: PATIENT WAS FASTINGPERFORMED BY: Bountii [facility] [id number] Information: [id number] COMPREHENSIVE (90972) ALT (SGPT) 27 [iU]/L (Normal) Range: 0-44 [...] Glucose, Serum 98 mg/dL (Normal) Range: 65-99 15-Kuo-41963:04 EBV Panel (47587) Comments: PATIENT NOT FASTINGPERFORMED BY: LabCoBacharach Institute for RehabilitationWjdvrw7960 [facility] [id number] Information: [id number] Interpretation: [facility] (Normal) Comments: EBV Interpretation Chart . Interpretation [...] Microscopic Examination Comments: PATIENT WAS FASTINGPERFORMED BY: [facility] [id number] Bacteria None seen (Normal) Mucus Threads Present (Normal) Epithelial Cells (non renal) None seen {/hpf} (Normal) Range: 0 - 10 RBC 0-2 {/hpf} (Normal) Range: 0 - 2 WBC 0-5 {/hpf} (Normal) Range: 0 - 5 :06 PSA (PROSTATE SPECIFIC Comments: PATIENT WAS FASTINGPERFORMED BY: [email or web address] [facility] [id number] ANTIGEN) (V76.44) Prostate Specific Ag, 3.8 ng/mL (Normal) Range: 0.0-4.0 Serum Comments: [employer] ECLIA methodology. .According to the [place] [employer], Serum PSA shoulddecrease and remain [...] of malignant disease. :06 URINALYSIS, W/ MICRO (96282) Comments: PATIENT WAS FASTINGPERFORMED BY: [email or web address] [facility] [id number] Microscopic Examination See below: (Normal) Comments: Microscopic was indicated and was performed. Microscopic Examination MICRON (Normal) Comments: Microscopic follows if indicated. Nitrite, Urine Negative (Normal) Urobilinogen,Semi-Qn 0.2 mg/dL (Normal) Range: 0.0-1.9 Bilirubin Negative (Normal) Occult Blood Negative (Normal) Ketones Negative (Normal) Glucose Negative (Normal) Protein Negative (Normal) WBC Esterase Negative (Normal) Appearance Clear (Normal) Urine-Color Yellow (Normal) pH 6.5 (Normal) Range: 5.0-7.5 Specific [place] 1.019 (Normal) Range: 1.005-1.030 07-Apr-20148:06 CBC WITH MANUAL DIFF Comments: PATIENT WAS FASTINGPERFORMED BY: LabCoBachar[facility] Institute for RehabilitationJfjhgc8612 [facility] [id number] Information: [id number] (93874) Immature Grans (Abs) 0.0 {x10E3/uL} (Normal) Range: [...] PANEL, COMPREHENSIVE Comments: PATIENT WAS FASTINGPERFORMED BY: LabCoB[facility] Institute for RehabilitationDlwnyi3553 [facility] [id number] (78731) ALT (SGPT) 21 [iU]/L (Normal) Range: 0-44 [...] mg/dL (Normal) Range: 65-99 :06 LIPID PANEL (53413) Comments: PATIENT WAS FASTINGPERFORMED BY: Bountii [facility] [id number] LDL/HDL Ratio 4.4 {ratio_units} (Abnormal) Range: 0.0-3.6 LDL Cholesterol Calc 122 mg/dL (Abnormal) Range: 0-99 VLDL Cholesterol Elvin 43 mg/dL (Abnormal) Range: 5-40 HDL Cholesterol 28 mg/dL (Abnormal) Comments: According to ATP-III Guidelines, HDL-C >59 mg/dL is considered anegative risk factor for CHD. Triglycerides 216 mg/dL (Abnormal) Range: 0-149 Cholesterol, Total 193 mg/dL (Normal) Range: 100-199 9-Kgn-623002:41 VARICELLA-ZOSTER ANTBODY Comments: PATIENT NOT FASTINGPERFORMED BY: FilmmortalBacharach Institute for RehabilitationAfcdbn2244 [facility] [id number] Information: [id number] (05726) Varicella Zoster IgG 2.01 {index} (Normal) Comments: Nonimmune <0.91 Equivocal 0.91 - 1.09 Immune >1.09 02-Apr-20138:37 Microscopic Examination Comments: PATIENT WAS FASTINGPERFORMED BY: Nordic TeleComCHRISTUS St. [facility] CenterJkvlss5809 [facility] [id number] Bacteria None seen (Normal) Mucus Threads Present (Normal) Epithelial Cells (non renal) 0-10 {/hpf} (Normal) Range: 0 - 10 RBC 0-3 {/hpf} (Normal) Range: 0 - 3 WBC 0-5 {/hpf} (Normal) Range: 0 - 5 :37 URINALYSIS, W/ MICRO (29675) Comments: PATIENT WAS FASTINGPERFORMED BY: FilmmortalBacharach Institute for RehabilitationPlwtdu8429 [facility] [id number] Microscopic Examination See below: (Normal) Microscopic Examination MICRON (Normal) Comments: Microscopic follows if indicated. Nitrite, Urine Negative (Normal) Urobilinogen,Semi-Qn 1.0 mg/dL (Normal) Range: 0.0-1.9 Bilirubin Negative (Normal) Occult Blood Negative (Normal) Ketones Negative (Normal) Glucose Negative (Normal) Protein Negative (Normal) WBC Esterase Negative (Normal) Appearance Clear (Normal) Urine-Color Yellow (Normal) pH 6.0 (Normal) Range: 5.0-7.5 Specific [place] 1.021 (Normal) Range: 1.005-1.030 :37 CBC WITH MANUAL DIFF Comments: PATIENT WAS FASTINGPERFORMED BY: Filmmortal Jkmmvr3206 [facility] [id number] Information: [id number] (94730) Immature Grans (Abs) 0.0 {x10E3/uL} (Normal) Range: [...] (PROSTATE SPECIFIC Comments: PATIENT WAS FASTINGPERFORMED BY: [email or web address] [facility] [id number] ANTIGEN) (V76.44) Prostate Specific Ag, 3.6 ng/mL (Normal) Range: 0.0-4.0 Serum Comments: [employer] methodology. .According to the [place] [employer] Association, Serum PSA shoulddecrease and remain at undetectable levels after radicalprostatectomy. The AUA defines biochemical recurrence as an initialPSA value 0.2 ng/mL or greater followed by a subsequent confirmatoryPSA value 0.2 ng/mL or greater.Values obtained with d ifferent assay methods or kits cannot be usedinterchangeably. Results cannot be interpreted as absolute evidenceof the presence or absence of malignant disease. :37 LIPID PANEL (57331) Comments: PATIENT WAS FASTINGPERFORMED BY: [employer]70 [facility]eguiSaint [facility] [id number] LDL/HDL Ratio 4.8 {ratio_units} (Abnormal) Range: 0.0-3.6 [...] PANEL, COMPREHENSIVE Comments: PATIENT WAS FASTINGPERFORMED BY: [employer]70 UriosteguiSaint Luke's East Hospital [id number] (00694) ALT (SGPT) 19 [iU]/L (Normal) Range: 0-44 [...] Glucose, Serum 94 mg/dL (Normal) Range: 65-99 53-Nyc-149988:43 PPD (24607) Comments: PT RECEIVED THIS AT WORK SKIN TEST INTRADERMAL TB negatvie (Normal) Comments: pt received this at work :33 LIPID PANEL (78199) Comments: PATIENT WAS FASTINGPERFORMED BY: [employer]70 [facility] [id number] LDL/HDL Ratio 3.8 {ratio_units} (Abnormal) Range: 0.0-3.6 [...] METABOLIC PANEL, Comments: PATIENT WAS FASTINGPERFORMED BY: [employer]6370 [facility] [id number] Information: [id number] COMPREHENSIVE (23175) ALT (SGPT) 21 [iU]/L (Normal) Range: 0-55 [...] CHOL 193 mg/dL (Normal) Comments: <200 mg/dL Lcmhsjbdu514-648 mg/dL Borderline>240 mg/dL High Risk :27 BMP [...] Indication: Prostate cancer Prostate cancer : Reviewed Denitrator Letter Indication: Prostate cancer Hypertensive heart disease [...] Indication: Mixed hyperlipidemia Prostate cancer : Reviewed Denitrator Letter Indication: Prostate cancer Hypertensive 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 heart failure : HTN/CAD Red Flags Indication: Hypertensive 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 heart failure Mixed hyperlipidemia : Cholesterol mgmt Indication: Mixed hyperlipidemia Mixed hyperlipidemia : Follow up in 6 months Indication: Mixed hyperlipidemia Prostate cancer : Reviewed Denitrator Letter- urologist - dr Miller Indication: Prostate cancer Hypertensive 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 heart failure : HTN/CAD Red Flags Indication: Hypertensive 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 heart failure Mixed hyperlipidemia : Cholesterol mgmt Indication: Mixed hyperlipidemia Hepatocellular carcinoma : Reviewed Lab Indication: Hepatocellular carcinoma Encounter for screening for malignant neoplasm of prostate (Renamed from Screening for prostate cancer) : Reviewed Denitrator Letter Indication: Encounter for screening for malignant [...] without heart failure Prostate cancer : Reviewed Denitrator Letter- Dr Miller Indication: Prostate cancer Mixed hyperlipidemia : Cholesterol mgmt Indication: Mixed hyperlipidemia Hepatocellular carcinoma : Reviewed Lab: nornmal alpha feta prot Indication: Hepatocellular carcinoma Hepatocellular carcinoma : Reviewed Denitrator Letter Indication: Hepatocellular carcinoma Hepatocellular carcinoma : Reviewed Diagnostic Tests Indication: Hepatocellular carcinoma Prostate cancer : Reviewed Lab Indication: Prostate cancer Prostate cancer : Reviewed Denitrator Letter Indication: Prostate cancer Prostate cancer : [...] Leg swelling Depression : follow up with [facility] 10 days Indication: Depression Sinusitis, [...] disease without heart failure Planned Observations TSH (87535)Indication: Mixed hyperlipidemia On: Request URINALYSIS, W/ MICRO (19526)Indication: Hypertensive 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 heart failure On: Request MICROALBUMIN: CREATININE RATIO (20213) AND (10774)Indication: Hypertensive 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 heart failure On: Request METABOLIC PANEL, COMPREHENSIVE (12971)Indication: Hypertensive 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 heart failure On: Request CBC W/AUTO DIFF WBC (31421)Indication: Hypertensive 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 heart failure On: Request LIPOPROTEIN, BLD, BY NMR (51117)Indication: Mixed hyperlipidemia On: Request CALCIFEDIOL (68675)Indication: Vitamin D deficiency On: 70-Xgo-95958:01 Request LIPID PANEL (60539)Indication: Mixed hyperlipidemia On: :07 Request METABOLIC PANEL, COMPREHENSIVE (47855)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 On: :07 Request CBC W/AUTO DIFF WBC (97771)Indication: Lymphocytosis On: :07 Request LIPID PANEL (99854)Indication: Hypertensive 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 heart failure On: 9-Cur-155442:39 Request METABOLIC PANEL, COMPREHENSIVE (97675)Indication: Hypertensive 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 heart failure On: 0-Whx-094841:39 Request METABOLIC PANEL, COMPREHENSIVE (75517)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 On: 0-Shy-612026:08 Request HEPATIC FUNCTION PANEL (84693)Indication: Mixed hyperlipidemia On: 61-Ubg-219635:53 Request LIPID PANEL (24471)Indication: Mixed hyperlipidemia On: 01-Fky-607575:52 Request METABOLIC PANEL, COMPREHENSIVE (25344)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 On: 63-Xux-084553:09 Request LIPID PANEL (14884)Indication: Mixed hyperlipidemia On: 50-Sxb-273141:09 Request METABOLIC PANEL, COMPREHENSIVE (32317)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 On: 30-Cni-964076:55 Request LIPID PANEL ([id number])Indication: Mixed hyperlipidemia On: 52-Whf-677069:54 Request CBC WITH MANUAL DIFF ([id number]) On: 36-Gwb-854725:57 Request Electrolyte Panel ([id number]) On: 65-Qub-750262:57 Request LIPID PANEL ([id number])Indication: Mixed hyperlipidemia On: 92-Efy-451556:03 Request METABOLIC PANEL, COMPREHENSIVE ([id number])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 On: 57-Vss-536613:03 Request CBC WITH MANUAL DIFF ([id number])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 On: 38-Yxt-638280:03 Request METABOLIC PANEL, COMPREHENSIVE ([id number])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 On: 37-Iyu-596126:05 Request HEPATIC FUNCTION PANEL ([id number])Indication: Mixed hyperlipidemia On: 58-Jtx-840495:05 Request Comments: 3 mos LIPID PANEL ([id number])Indication: Mixed hyperlipidemia On: 43-Vug-449345:05 Request Planned Encounters Medical; Walk Assessment - On: 19-Jun-2018 15:15 [facility] Visit, Nurse Medical; Hospital Follow Up - On: 28-Jun-2018 12:15 [facility] Swetha Pedersen DO, DO, Kathleen Planned Procedures ELECTROCARDIOGRAM, COMPLETE (ECG) On: 20-Nov-2017 Intent ([id number])By: Robyn Vergara Comments: nsr no acute cgh Flu Vaccine (Quadrivalent) [id number]: On: 22-May-2017 Intent Swetha Pedersen DO, DO, Comments: QUAD flu shotlot number: [id number]: 10/2017L Deltoid IMAD TRANSITION SPECIALIST Swetha [id number]SEL[facility] FOR On: 16-Jan-2017 Intent OBESITY, 15 MINUTES ([id number])By: Swetha Pedersen DO, DO, Kathleen ELECTROCARDIOGRAM, COMPLETE (ECG) On: 21-Nov-2016 Intent ([id number])By: Swetha Pedersen DO Comments: nsr no acute chg Swetha DOUGLAS ADMINISTRATION OF INFLUENZA VIRUS On: 27-Apr-2015 Intent VACCINE ([id number])By: Lisa Potter DO FLU VAC, SPLIT, >3 YEARS, INTRAMUSC On: 27-Apr-2015 Intent ([id number])By: Lisa Potter DO Comments: Lot:[id number]:12/13Dose:0.5mLRoute:IMSite:L DltdGiven By:AMBROSIO signed EKG ([id number])By: Lisa Potter DO On: 13-Oct-2014 Intent Comments: ekg showed normal sinus rhythym, normal axis, no acute st/t wave changes lvh IMMUNIZ ADMNIN, 1 VAC, SNGL/COMBO On: 07-Oct-2013 Intent ([id number])By: Lisa Potter DO Comments: Lot: [id number]: 19Pgf22Wjw: 0.5mlRoute: IMSite: L detoidGiven by: ALYSSA Sotelo PNEUM VAC ADLT/IMUMNOSPR, SBC/INTRM On: 07-Oct-2013 Intent ([id number])By: Lisa Potter DO EKG ([id number])By: Lisa Potter DO On: 07-Oct-2013 Intent Comments: ekg- sinus with left axis and lvh no change compared to prvious FLU VAC, SPLIT, >3 YEARS, INTRAMUSC On: 10-Oct-2011 Intent ([id number])By: Mila Osullivan Comments: received 04/2011 TDAP VACCINE >7 IM ([id number])By: Shi, On: 10-Oct-2011 Intent Mila Comments: declines Eprescribed prescriptions ([id number])By: On: 01-Apr-2011 Intent Lisa Potter DO EKG ([id number])By: Mila Osullivan On: 12-Oct-2009 Intent EKG ([id number])By: Lisa Potter DO On: 25-Sep-2006 Intent Comments: [...] Advance Directives Name Dates Details Immunization Registry [place] - Effective on Effective: 22-May-201705/22/2017. Expiration date [...] patient does not have durable power of trade mark attorney or living will. The patient has [...] patient does not have durable power of trade mark attorney or living will. The patient has [...] compliant with instructions. Current medication use: no sisac e effects and compliant with dosing regimen. Patient sleeps 7 hours per night. Nutrition: inappropriate diet, supplemental vitamins and low salt diet. The medical issues the patient is following up for include All identified problems below, high blood pressure, high cholesterol and other (bph, ddd, leukocytosis). 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
--- OUTSIDE RECORDS SUMMARY | 2018-08-26 09:49 | XMS RPT_ITS | Continuity of Care Document ---
:1945 Author Organization [facility] Address [address] [facility] [address] [place] [address] Phone Care Team Providers Name Role Phone Swetha Pedersen DO Unavailable Carolyn VICKERS MD , William Dash Unavailable Dr. Josef Patton Unavailable Roberto Flores MD Unavailable Mckenzie Love Unavailable Unavailable ALYSSA Stahl Unavailable Unavailable Unavailable Unavailable Problems Name Dates Details Abnormal lung sounds (R09.89, 786.7) Status: Active Annual Medicare Phyiscal WITHOUT abnormal findings (Renamed [...] in size with no enhancem ent to [facility] recurrent disease,Diagnosed in 2014: 2 procedure Y 90 to reduce the [...] without abnormal findings) (Z00.00, V70.0) Status: Active Pleural effusion on right (J90, 511.9) Status: Active Pneumonia (J18.9, 486) Comments: oxygnenation 98% room air todaycausing hypoxia -- do 6mwa at appt in May Status: Active Prostate cancer (C61, 185) Status: [...] days Quantity: 180 {Tablet} Refills: 2 Ordered:21-Nov-2017 Swetha Pedersen DOSlava Swetha Start : 21-Nov-2017 Active Lisinopril 5 MG Oral Tablet 1 (one) Tablet bid for 90 days Quantity: 180 {Tablet} Refills: 1 Ordered:14-Jun-2018 Slava DOUGLAS Latricemichellemarcelo DOUGLAS Swetha Start : 14-Jun-2018 Active Comments:Dr.Eric Tovar adjusted [...] 16-Aug-2016 End : 15-Sep-2016 Inactive Vitamin D3 30484 UNIT Oral Capsule 1 (one) Capsule Capsule once a week for 60 days Quantity: 8 {Capsule} Refills: 0 Ordered:21-Jun-2016 Long Denisse SHAH Start : 21-Jun-2016 End : 20-Aug-2016 Inactive [...] as of 30-Mar-2012 Procedures Date Value Details 19-Jun-2018 Chest PA and Lateral Result: Comments: See Note; NOTES: [facility] Imaging Services [address] [place] [address] Chest PA and Lateral MR#: [id number] Acct: [id number] Name: LUCAS EAST Rep #: [id number] : 1945 M 73 From: Jamar Dong MD PCP: Swetha Pedersen DO Status: REG CLI Study: Chest PA and Lateral Date of Exam: 06/19/18 Exam# [id number] Ordering Dr: Jose Tovar DO STUDY: X-RAY [...] CC: Jose Tovar DO; Geno Pedersen DO Artificial Breeding Distributor: Signed 11-May-2018 Emergency Department Summary Result: Comments: See Note; NOTES: [facility] Medical Records Department [address] [place] [address] Emergency Department Summary 05/11/18 1307 MR#: [id number] Acct: [id number] Name: LUCAS EAST Rep #: [id number] : 1945 73 From: Cristina Lyles MD PCP: Swetha Pedersen DO Status: REG ER - ER Visit Summary Date of Service: 05/11/18 Chief Complaint: Wound check Histo ry of Present Illness: The patient is a 73 M presenting for wound check. Patient had surgery at [facility] on April 25 for a strangulated hernia. This was complicated by sepsis. [facility]. He was discharged [...] acquired pneumonia. Discussed with Dr. Meeks at [facility]. He is in agreement that the patient can stay at [facility] as the patient wishes. Discussed with Dr. Hyde and patient will be admitted. Disposition: Admission Impression: Healthcare acquired pneumonia This note was generated with Vidacare dictation software. It may contain incorrect words, spelling, and punctuation that were not noted in review of the chart prior to signing ED Disposition - Plan for ED Patient: Chief Complaint: Wound Check Referrals: Slava,Swetha, DO [Primary Care Provider] - What to do if you have Problems For any increased pain, shortness of breath, bleeding, nausea or vomiting, chest pain, or any unexpect ed problems, contact your Primary Care Provider. Call [facility] ([phone]) or report to the closest Emergency Room. Call 911 if necessary. 05/11/18 1601 <Electronically signed by Shayne Lyles MD> Date Cristina Lyles MD Cosigner Signature (If Indicated): Date CC: Swetha Pedersen DO 11-May-2018 Acute Abdomen Inc Chest Result: Comments: See Note; NOTES: [facility] Imaging Services [address] [place] [address] Acute Abdomen Inc Chest MR#: [id number] Acct: [id number] Name: LUCAS EAST Rep #: [id number] : 1945 M 73 From: Benton Toledo MD PCP: Swetha Pedersen DO Status: [facility] ER Study: Acute Abdomen Inc Chest Date of Exam: 05/11/18 Exam# [id number] Ordering Dr: Cristina Lyles MD JONATAN DY: [...] CC: Cristina Lyles MD; Swetha Pedersen DO Artificial Breeding Distributor: Signed 21-Apr-2018 Emergency Department Summary Result: Comments: See Note; NOTES: [facility] Medical Records Department [address] [facility] [place] [address] Emergency Department Summary 04/21/18 0057 MR#: [id number] Acct: [id number] Name: LUCAS EAST Rep #: [id number] : 1945 73 From: Bobby Walton MD [...] not having vomiting. Will be transferred to [facility] as our ope rating room is down for cleaning. Discussed with our surgeon on-call Dr. Amezcua and also Dr. Cohen at [facility]. He will be transferred. Given morphine IV fluids and Zofran with good relief of sy mptoms Treatment Plan: [] Disposition: [] Impression: [] Incarcerated right inguinal hernia Small bowel obstruction secondary to incarcerated inguinal hernia Acute renal insufficiency Critical CARE time: 30-74 minutes This note was generated with Vidacare dictation software. It may contain incorrect words, [...] your Primary Care Provider. Call [facility] ([phone]) or report to the closest Emergency Room. Call 911 if necessar y. 04/21/18 0214 <Electronically signed by Bobby Walton MD> Date Bobby Walton MD Cosigner Signature (If Indicated): Date __ CC: Swetha Pedersen DO 20-Apr-2018 Abdomen/Pelvis without Cont Result: Comments: See Note; NOTES: [facility] Imaging Services [address] [place] [address] Abdomen/Pelvis without Cont MR#: [id number] Acct: [id number] Name: LUCAS EAST Rep # : [id number] : 1945 M 73 From: Laverne Ladd MD PCP: Swetha Pedersen DO Status: REG ER Study: Abdomen/Pelvis without Cont Date of Exam: 04/20/18 Exam# [id number] Ordering Dr: Bobby Walton STUDY: CT ABDOMEN [...] CC: Swetha Pedersen DO; Bobby Walton MD Artificial Breeding Distributor: Signed 10-Nov-2014 Abdomen/Pelvis W/WO Contrast Result: Comments: See Note; NOTES: [facility] Imaging Services [address] [place] [address] CAT Scan Report MR#: [id number] Acct: [id number] Name: LUCAS EAST Rep #: [id number] : 1945 M 69 From: Salvatore Gomes DO PCP: Lisa Potter DO Status: REG CLI Study: Abdomen/Pelvis W/WO Contrast Date of Exam: 11/10/14 Exam# [id number] Ordering Dr: Josef Patton MD [facility] DY: CT ABDOMEN AND PELVIS WITH [...] Gomes DO 11/10 at 13:34 EDT Tel [phone], Service support [phone], CC: Lisa Potter DO; Josef Patton Artificial Breeding Distributor: Signed Immunization Name Dates Details Influenza vaccine, [...] smoker Vital Signs Date Test Result Details 52-Bby-208099:09 Pulse 83 /min Comments: Pattern: Regular Respiration [...] kg/m2 Body Surface Area Calculated 2.23 m2 78-Nhk-208863:02 Comments: 12/2017 last eye exam was tested [...] kg/m2 Body Surface Area Calculated 2.32 m2 17-Sxk-94160:38 Pulse 79 /min Comments: Pattern: Regular Respiration [...] kg/m2 Body Surface Area Calculated 2.32 m2 89-Jyv-586114:05 Pulse 80 /min Comments: Pattern: Regular Respiration [...] kg/m2 Body Surface Area Calculated 2.37 m2 93-Tuw-865606:16 Pulse 78 /min Comments: Pattern: Regular Respiration [...] Area Calculated 2.32 m2 :03 Comments: hearing MelanierLeila Muhammad and had aglaucoma test done Pulse [...] 0.00 cm Results Date Description Value Details :26 PSA,Total- Diagnostic Comments: [facility] [address] [place], [place], [address] PSA, DIAGNOSTIC 3.71 ng/mL (Normal) Range: 0.0-4.0 Comments: This test was performed using the TPSA assay method for Anchanto chemistry system. Values obtained with differentassay methods cannot be used interchangably.When changing PSA assays in the course of monitoring apatient, additional sequential testing should be carriedout to confirm baseline values. 96-Cgu-634172:33 Basic Metabolic Profile (BMP) Comments: Send Results To: Swetha Hudson [facility] [address] [place], [place], [address] GAP 11 (Normal) Range: 5-15 CO2 28.0 [...] Comments: Please note revised GLUCOSE reference range /02/2018. 14-Eco-417943:29 Urinalysis, Complete Comments: Order Date: 05/11/18How was Urine Obtained? [facility] [address] [place], [place], [id number] MUCUS, URINE 2+ {/hpf} (Normal) BACTERIA 1+ [...] (Normal) CLARITY Clear (Normal) COLOR Yellow (Normal) 82-Ahv-727183:19 Basic Metabolic Profile (BMP) Comments: [facility] [address] [place], [place], [address] GAP 7 (Normal) Range: 5-15 CO2 25.0 [...] A.D.A. criteria.Please note revised GLUCOSE reference range bnpjpixpg10/02/2018. 47-Nye-265412:19 CBC W/Diff, Automated Comments: [facility] [address] [place], [place], [address] Absolute Lymph 1.73 {X10_3/ul} (Normal) Range: 0.83-4.51 [...] 4.6-6.2 WBC 7.5 K/mm3 (Normal) Range: 4.4-11.0 53-Nsd-851919:10 Basic Metabolic Profile (BMP) Comments: [facility] [address] [place], [place], [address] GAP 12 (Normal) Range: 5-15 CO2 22.0 [...] A.D.A. criteria.Please note revised GLUCOSE reference range olgvzhfek80/02/2018. 05-Tom-384789:10 CBC W/Diff, Automated Comments: [facility] [address] [facility] [address] [place], [place], [address] Absolute Lymph 2.70 {X10_3/ul} (Normal) Range: 0.83-4.51 [...] Range: 4.4-11.0 :10 Partial Thromboplast Time Comments: [facility] [address] [place], [address] PTT 39.8 s (Abnormal) Range: 24.1-36.2 32-Hdg-654101:10 Prothrombin Time w/INR Comments: [facility] [address] [place], [address] INR 1.3 (Normal) PROTIME 16.3 s (Abnormal) Range: 11.7-14.9 :21 Microscopic Examination Comments: PATIENT WAS FASTINGPERFORMED BY: [facility] Phyonv0767 [facility] [id number] Bacteria Few (Normal) Mucus Threads Present (Normal) Cast Type Hyaline casts (Normal) Casts Present {/lpf} (Abnormal) Epithelial Cells (non renal) 0-10 {/hpf} (Normal) Range: 0 - 10 RBC 0-2 {/hpf} (Normal) Range: 0 - 2 WBC 0-5 {/hpf} (Normal) Range: 0 - 5 :49 PSA,Total- Diagnostic Comments: [facility] [address] [place], [address] PSA, DIAGNOSTIC 4.43 ng/mL (Abnormal) Range: 0.0-4.0 Comments: This test was performed using the TPSA assay method for Anchanto chemistry system. Values obtained with differentassay methods cannot be used interchangably.When changing PSA assays in the course of monitoring apatient, additional sequential testing should be carriedout to confirm baseline values. 05-Jwn-736716:50 HgA1C , Office (09364) HgA1C , Office 5.7 % (Normal) Range: 4.6 - 7.1 :21 CALCIFEDIOL (01224) Comments: PATIENT WAS FASTINGPERFORMED BY: ViVu6370 [address] [facility] [place] [id number] Vitamin D, 25-Hydroxy 49.2 ng/mL (Normal) Range: 30.0-100.0 Comments: Vitamin D deficiency has been defined by the Sunspot ofMedicine and an Endocrine Society practice guideline as alevel of serum 25-OH vitamin D less than 20 ng/mL (1,2).The Endocrine Society went on to further define vitamin Dinsufficiency as a level between 21 and 29 ng/mL (2).1. IOM (Sunspot of Medicine). 2010. Dietary reference intakes for calcium and D. [place]: The National Academies Press.2. Reuben MF, Stephanie NC, Radha MILLIGAN, et al. Evaluation, treatment, and prevention of vitamin D deficiency: an Endocrine Society clinical practice guideline. JCEM. 2010; 96(7):1911-30. :21 TSH (84673) Comments: PATIENT WAS FASTINGPERFORMED BY: N30 Pharmaceuticalsrp Kztdxl3534 [address] [facility] [place] [id number] TSH 2.900 {uIU/mL} (Normal) Range: 0.450-4.500 :21 URINALYSIS, W/ MICRO (34027) Comments: PATIENT WAS FASTINGPERFORMED BY: Wallstr Tuutwa8200 [address] [facility] [place] [id number] Microscopic Examination See below: (Normal) Comments: Microscopic was indicated and was performed. Microscopic Examination MICRON (Normal) Comments: Microscopic follows if indicated. Nitrite, Urine Negative (Normal) Urobilinogen,Semi-Qn 0.2 mg/dL (Normal) Range: 0.2-1.0 Bilirubin Negative (Normal) Occult Blood Negative (Normal) Ketones Negative (Normal) Glucose Negative (Normal) Protein Negative (Normal) WBC Esterase Negative (Normal) Appearance Clear (Normal) Urine-Color Yellow (Normal) pH 5.0 (Normal) Range: 5.0-7.5 Specific Spencer 1.016 (Normal) Range: 1.005-1.030 :21 MICROALBUMIN: CREATININE RATIO Comments: PATIENT WAS FASTINGPERFORMED BY: N30 PharmaceuticalsEast Mountain HospitalHnadkn7499 [facility] [id number] (00848) AND (59805) Alb/Creat Ratio <3.8 {mg/g_creat} (Normal) Range: 0.0-30.0 Albumin, Urine <3.0 ug/mL (Normal) Creatinine, Urine 79.5 mg/dL (Normal) :21 METABOLIC PANEL, COMPREHENSIVE Comments: PATIENT WAS FASTINGPERFORMED BY: ViVu6370 [facility] [id number] (12087) ALT (SGPT) 16 [iU]/L (Normal) Range: 0-44 [...] 8-27 Glucose 94 mg/dL (Normal) Range: 65-99 :21 CBC W/AUTO DIFF WBC (07239) Comments: PATIENT WAS FASTINGPERFORMED BY: [facility]6370 [facility] [id number] Immature Grans (Abs) 0.0 {x10E3/uL} (Normal) Range: [...] {x10E3/uL} (Normal) Range: 3.4-10.8 :21 LIPID PANEL (09308) Comments: PATIENT WAS FASTINGPERFORMED BY: [facility]6370 [facility] [id number] LDL/HDL Ratio 3.0 {ratio} (Normal) Range: 0.0-3.6 [...] Microscopic Examination Comments: PATIENT WAS FASTINGPERFORMED BY: [facility]6370 [facility] [id number] Bacteria None seen (Normal) Mucus Threads Present (Normal) Epithelial Cells (non renal) 0-10 {/hpf} (Normal) Range: 0 - 10 RBC 0-2 {/hpf} (Normal) Range: 0 - 2 WBC 0-5 {/hpf} (Normal) Range: 0 - 5 :12 PSA,Total- Diagnostic Comments: [facility] [address] [place], [address] PSA, DIAGNOSTIC 4.20 ng/mL (Abnormal) Range: 0.0-4.0 Comments: This test was performed using the TPSA assay method for the[facility] chemistry system. Values obtained with differentassay methods cannot be used interchangably.When changing PSA assays in the course of monitoring apatient, additional sequential testing should be carriedout to confirm baseline values. :49 TSH (50009) Comments: PATIENT WAS FASTINGPERFORMED BY: [facility]6370 [facility] [id number] TSH 3.530 {uIU/mL} (Normal) Range: 0.450-4.500 :49 CALCIFEDIOL (37318) Comments: PATIENT WAS FASTINGPERFORMED BY: [employer] Cirwfu8556 [facility] [id number] Vitamin D, 25-Hydroxy 28.4 ng/mL (Abnormal) Range: 30.0-100.0 Comments: Vitamin D deficiency has been defined by the Sunspot ofMedicine and an Endocrine Society practice guideline as alevel of serum 25-OH vitamin D less than 20 ng/mL (1,2).The Endocrine Society went on to further define vitamin Dinsufficiency as a level between 21 and 29 ng/mL (2).1. IOM (Sunspot of Medicine). 2010. Dietary reference intakes for calcium and D. [place]: The National Academies Press.2. Reuben MF, Stephanie CLARK, Radha MILLIGAN, et al. Evaluation, treatment, and prevention of vitamin D deficiency: an Endocrine Society clinical practice guideline. JCEM. 2010; 96(7):1911-30. :49 URINALYSIS, W/ MICRO (82868) Comments: PATIENT WAS FASTINGPERFORMED BY: ViVu6370 [facility] [id number] Microscopic Examination See below: (Normal) Comments: Microscopic was indicated and was performed. Microscopic Examination MICRON (Normal) Comments: Microscopic follows if indicated. Nitrite, Urine Negative (Normal) Urobilinogen,Semi-Qn 0.2 mg/dL (Normal) Range: 0.2-1.0 Bilirubin Negative (Normal) Occult Blood Negative (Normal) Ketones Negative (Normal) Glucose Negative (Normal) Protein Negative (Normal) WBC Esterase Negative (Normal) Appearance Clear (Normal) Urine-Color Yellow (Normal) pH 5.5 (Normal) Range: 5.0-7.5 Specific Spencer 1.018 (Normal) Range: 1.005-1.030 :49 MICROALBUMIN: CREATININE RATIO Comments: PATIENT WAS FASTINGPERFORMED BY: [employer] Udcmph0312 [facility] [id number] (64834) AND (09030) Alb/Creat Ratio <3.0 {mg/g_creat} (Normal) Range: 0.0-30.0 Albumin, Urine <3.0 ug/mL (Normal) Creatinine, Urine 101.1 mg/dL (Normal) :49 METABOLIC PANEL, COMPREHENSIVE Comments: PATIENT WAS FASTINGPERFORMED BY: LabCoEast Mountain HospitalBrnrgj4748 [facility] [id number] (04587) ALT (SGPT) 17 [iU]/L (Normal) Range: 0-44 [...] Range: 65-99 :49 CBC W/AUTO DIFF WBC (55978) Comments: PATIENT WAS FASTINGPERFORMED BY: LabCoEast Mountain HospitalVjbpyz6854 [facility] [id number] Immature Grans (Abs) 0.0 {x10E3/uL} (Normal) Range: [...] {x10E3/uL} (Normal) Range: 3.4-10.8 :49 LIPID PANEL (07670) Comments: PATIENT WAS FASTINGPERFORMED BY: LabCoEast Mountain HospitalErgxyq8046 [facility] [id number] LDL/HDL Ratio 4.3 {ratio} (Abnormal) Range: 0.0-3.6 Comments: LDL/HDL Ratio Men Women 1/2 Avg.Risk 1.0 1.5 Av g.Risk 3.6 3.2 2X Avg.Risk 6.2 5.0 3X Avg.Risk 8.0 6.1 LDL Cholesterol Calc 149 mg/dL (Abnormal) Range: 0-99 VLDL Cholesterol Elvin 36 mg/dL (Normal) Range: 5-40 HDL Cholesterol 35 mg/dL (Abnormal) Triglycerides 181 mg/dL (Abnormal) Range: 0-149 Cholesterol, Total 220 mg/dL (Abnormal) Range: 100-199 95-Qum-446314:47 Microscopic Examination Comments: PATIENT WAS FASTINGPERFORMED BY: [facility] Bmkjiw9738 [address] [place] [id number] Bacteria Few (Normal) Mucus Threads Present (Normal) Epithelial Cells (non renal) 0-10 {/hpf} (Normal) Range: 0 - 10 RBC 0-2 {/hpf} (Normal) Range: 0 - 2 WBC 0-5 {/hpf} (Normal) Range: 0 - 5 :53 AFP, Tumor Marker Comments: FAX AFP RESULTS TO [phone] Patient ? NComments: ALPHA FETOPROTIEN,SERUM RTLabCorp (refer to report for specific site)refer to report for address and phone number AFP TUMOR 2253 3.1 ng/mL (Normal) Range: 0.0-8.3 Comments: Melodie ECLIA methodology :53 Basic Metabolic Profile (BMP) Comments: Comments: ALPHA FETOPROTIEN,SERUM [facility] [address] [place], [place], [address] GAP 5 (Normal) Range: 5-15 CO2 29.0 [...] :53 Liver Profile Comments: Comments: ALPHA FETOPROTIEN,SERUM [facility] [address] [place], [place], [address] D BILI 0.24 mg/dL (Normal) Range: 0.00-0.30 T BILI 1.10 mg/dL (Abnormal) Range: 0.20-1.00 ALT 30 U/L (Normal) Range: 12-78 ALK P 85 U/L (Normal) Range: 45-117 AST 17 U/L (Normal) Range: 15-37 GLOB 3.5 g/dL (Normal) Range: 2.3-3.5 ALB 3.9 g/dL (Normal) Range: 3.4-5.0 T PROT 7.4 g/dL (Normal) Range: 6.4-8.2 :53 Phosphorus Comments: Comments: ALPHA FETOPROTIEN,SERUM [facility] [address]jnprfb1386 [facility] [address] [place], [place], [address] PHOS 2.6 mg/dL (Normal) Range: 2.5-4.9 :53 Prothrombin Time w/INR Comments: [facility] R[address]dgdloji3726 [facility] [address] [place], [place], [address] INR 1.1 (Normal) PROTIME 13.7 s (Normal) Range: 11.7-14.9 :47 TSH (49817) Comments: PATIENT WAS FASTINGPERFORMED BY: SisasaEast Mountain HospitalKdsbix2515 [facility] [id number] TSH 1.580 {uIU/mL} (Normal) Range: 0.450-4.500 :47 URINALYSIS, W/ MICRO (51961) Comments: PATIENT WAS FASTINGPERFORMED BY: SisasaEast Mountain HospitalBqjpwk7416 [facility] [id number] Microscopic Examination See below: (Normal) Comments: Microscopic was indicated and was performed. Microscopic Examination MICRON (Normal) Comments: Microscopic follows if indicated. Nitrite, Urine Negative (Normal) Urobilinogen,Semi-Qn 0.2 mg/dL (Normal) Range: 0.2-1.0 Bilirubin Negative (Normal) Occult Blood Negative (Normal) Ketones Negative (Normal) Glucose Negative (Normal) Protein Negative (Normal) WBC Esterase Negative (Normal) Appearance Clear (Normal) Urine-Color Yellow (Normal) pH 5.5 (Normal) Range: 5.0-7.5 Specific Spencer 1.026 (Normal) Range: 1.005-1.030 90-Bnh-771334:47 MICROALBUMIN: CREATININE RATIO Comments: PATIENT WAS FASTINGPERFORMED BY: SisasaEast Mountain HospitalIoputa7151 [facility] [id number] (77335) AND (54041) Microalb/Creat Ratio 3.1 {mg/g_creat} (Normal) Range: 0.0-30.0 Microalbumin, Urine 5.4 ug/mL (Normal) Creatinine, Urine 172.4 mg/dL (Normal) 83-Fwi-726757:47 METABOLIC PANEL, COMPREHENSIVE Comments: PATIENT WAS FASTINGPERFORMED BY: S[facility]asaEast Mountain HospitalGiyfyc2285 [facility] [id number] (95187) ALT (SGPT) 19 [iU]/L (Normal) Range: 0-44 [...] Glucose, Serum 99 mg/dL (Normal) Range: 65-99 :47 CBC W/AUTO DIFF WBC (02650) Comments: PATIENT WAS FASTINGPERFORMED BY: Sisasa Gzadfg5409 [facility] [id number] Immature Grans (Abs) 0.0 {x10E3/uL} (Normal) Range: [...] {x10E3/uL} (Normal) Range: 3.4-10.8 :47 LIPID PANEL (90374) Comments: PATIENT WAS FASTINGPERFORMED BY: Sisasa Qifpjh1616 [facility] [id number]; will review on 05/22 LDL/HDL Ratio 3.6 [...] Cholesterol, Total 184 mg/dL (Normal) Range: 100-199 7-Njq-372708:09 PSA,Total- Diagnostic Comments: [facility] [address] [place], [address] PSA, DIAGNOSTIC 6.85 ng/mL (Abnormal) Range: 0.0-4.0 Comments: This test was performed using the TPSA assay method for [employer] chemistry system. Values obtained with differentassay methods cannot be used interchangably.When changing PSA assays in the course of monitoring apatient, additional sequential testing should be carriedout to confirm baseline values. :53 AFP, Tumor Marker Comments: Is Patient ? NComments: N/[facility] (refer to report for specific site)refer to report for address and phone number AFP TUMOR 2253 2.1 ng/mL (Normal) Range: 0.0-8.3 Comments: Ajubeo ECLIA methodologyPerformed at: [employer] [facility] [address] [id number] Director: Josef Ventura PhD, Phone: [phone] 1-Tyo-245591:53 Basic Metabolic Profile (BMP) Comments: Comments: [facility] [address]xsjf[address] [place], [place], [address] GAP 8 (Normal) Range: 5-15 CO2 26.0 [...] 7-18 GLU 104 mg/dL (Normal) Range: 70-110 1-Cic-271457:53 Liver Profile Comments: Comments: /[facility] [address] [place], [address] D BILI 0.23 mg/dL (Normal) Range: 0.00-0.30 T BILI 1.00 mg/dL (Normal) Range: 0.20-1.00 ALT 26 U/L (Normal) Range: 12-78 ALK P 98 U/L (Normal) Range: 45-117 AST 19 U/L (Normal) Range: 15-37 GLOB 3.8 g/dL (Abnormal) Range: 2.3-3.5 ALB 3.9 g/dL (Normal) Range: 3.4-5.0 T PROT 7.7 g/dL (Normal) Range: 6.4-8.2 :53 Phosphorus Comments: Comments: /[facility] [address] [place], [address] PHOS 2.3 mg/dL (Abnormal) Range: 2.5-4.9 6-Qrb-798929:53 Prothrombin Time w/INR Comments: [facility] [address] [place], [address] INR 1.1 (Normal) PROTIME 13.4 s (Normal) Range: 11.7-14.9 62-Sde-697616:24 MICROALBUMIN: CREATININE RATIO Comments: PATIENT WAS FASTINGPERFORMED BY: CB [facility] Ypphhh0332 [facility] [id number] (36086) AND (11439) Microalb/Creat Ratio 5.7 {mg/g_creat} (Normal) Range: 0.0-30.0 Microalbumin, Urine 9.7 ug/mL (Normal) Creatinine, Urine 169.8 mg/dL (Normal) 48-Yye-897628:24 VITAMIN B12 AND FOLATES Comments: PATIENT WAS FASTINGPERFORMED BY: [facility]6370 [facility] [id number] (00963) Folate (Folic Acid), Serum >20.0 ng/mL (Normal) Comments: A serum folate concentration of less than 3.1 ng/mL isconsidered to represent clinical deficiency. Vitamin B12 323 pg/mL (Normal) Range: 211-946 :24 CALCIFEDIOL (24264) Comments: PATIENT WAS FASTINGPERFORMED BY: [facility]6370 [facility] [id number] Vitamin D, 25-Hydroxy 33.2 ng/mL (Normal) Range: 30.0-100.0 Comments: Vitamin D deficiency has been defined by the Sunspot ofMedicine and an Endocrine Society practice guideline as alevel of serum 25-OH vitamin D less than 20 ng/mL (1,2).The Endocrine Society went on to further define vitamin Dinsufficiency as a level between 21 and 29 ng/mL (2).1. IOM (Sunspot of Medicine). 2010. Dietary reference intakes for calcium and D. [place]: The National Academies Press.2. Reuben MF, Stephanie [place], Radha MILLIGAN, et al. Evaluation, treatment, and prevention of vitamin D deficiency: an Endocrine Society clinical practice guideline. JCEM. 2010; 96(7):1911-30. :24 TSH (THYROID STIMULATING Comments: PATIENT WAS FASTINGPERFORMED BY: [facility]6370 [facility] [id number] HORMONE) (03922) TSH 2.410 {uIU/mL} (Normal) Range: 0.450-4.500 :24 LIPID PANEL (70260) Comments: PATIENT WAS FASTINGPERFORMED BY: SisasaEast Mountain HospitalUgrkkz1383 [facility] [id number] LDL/HDL Ratio 3.7 {ratio_units} (Abnormal) Range: 0.0-3.6 [...] PANEL, COMPREHENSIVE Comments: PATIENT WAS FASTINGPERFORMED BY: Mob[employer] Technologieslin6370 [facility] [id number] (36412) ALT (SGPT) 30 [iU]/L (Normal) Range: 0-44 [...] Glucose, Serum 99 mg/dL (Normal) Range: 65-99 :24 CBC, PLATELETS & AUT DIFF Comments: PATIENT WAS FASTINGPERFORMED BY: LabCoEast Mountain HospitalSlpsqp6174 [facility] [id number]; fu - KF (48112) Immature Grans (Abs) 0.0 {x10E3/uL} (Normal) Range: [...] Comments: Melodie ECLIA methodologyPerformed at: - [facility] [address] [id number] Director: Josef Ventura PhD, Phone: [phone] :[phone] Bilirubin, Direct Comments: [facility] [address] [place], [place], [phone] D BILI 0.29 mg/dL (Normal) Range: 0.00-0.30 :30 Comprehensive Metabolic Profil Comments: [facility] [address] [place], [place], [id number] GAP 8 (Normal) Range: 5-15 CO2 26.0 [...] mg/dL (Normal) Range: 70-110 :30 Phosphorus Comments: [facility] [address] [place], [address] PHOS 2.4 mg/dL (Abnormal) Range: 2.5-4.9 :30 Prothrombin Time w/INR Comments: [facility] [address] [place], [address] INR 1.1 (Normal) PROTIME 13.4 s (Normal) Range: 11.7-14.9 :35 CALCIFEDIOL (05259) Comments: PATIENT WAS FASTINGPERFORMED BY: StreetInvestor70 Gene[employer] BiotechnologyFormerly [facility], [facility] [id number] Vitamin D, 25-Hydroxy 45.6 ng/mL (Normal) Range: 30.0-100.0 Comments: Vitamin D deficiency has been defined by the Sunspot ofGerman Hospitalcine and an Endocrine Society practice guideline as alevel of serum 25-OH vitamin D less than 20 ng/mL (1,2).The Endocrine Society went on to further define vitamin Dinsufficiency as a level between 21 and 29 ng/mL (2).1. IOM (Sunspot of Medicine). 2010. Dietary reference intakes for calcium and D. [place]: The National Academies Press.2. Reuben MF, Stephanie [place], Radha MILLIGAN, et al. Evaluation, treatment, and prevention of vitamin D deficiency: an Endocrine Society clinical practice guideline. JCEM. 2010; 96(7):1911-30. :35 METABOLIC PANEL, COMPREHENSIVE Comments: PATIENT WAS FASTINGPERFORMED BY: ViVu6370 [facility]ificGr[facility] [id number] (18642) ALT (SGPT) 18 [iU]/L (Normal) Range: 0-44 [...] Glucose, Serum 101 mg/dL (Abnormal) Range: 65-99 08-Aug-20169:35 LIPID PANEL (24352) Comments: PATIENT WAS FASTINGPERFORMED BY: [facility]6370 [facility] [id number] LDL/HDL Ratio 4.4 {ratio_units} (Abnormal) Range: 0.0-3.6 Comments: LDL/HDL Ratio Men Women 1/2 Avg.Risk 1.0 1.5 Av g.Risk 3.6 3.2 2X Avg.Risk 6.2 5.0 3X Avg.Risk 8.0 6.1 LDL Cholesterol Calc 151 mg/dL (Abnormal) Range: 0-99 VLDL Cholesterol Elvin 33 mg/dL (Normal) Range: 5-40 HDL Cholesterol 34 mg/dL (Abnormal) Triglycerides 165 mg/dL (Abnormal) Range: 0-149 Cholesterol, Total 218 mg/dL (Abnormal) Range: 100-199 67-Kpc-773919:13 PSA,Total- Diagnostic Comments: [facility] [address] [place], [place], [phone] PSA, DIAGNOSTIC 6.86 ng/mL (Abnormal) Range: 0.0-4.0 Comments: This test was performed using the TPSA assay method for the[employer] chemistry system. Values obtained with differentassay methods cannot be used interchangably.When changing PSA assays in the course of monitoring apatient, additional sequential testing should be carriedout to confirm baseline values. :29 HgA1C , Office (43336) HgA1C , Office 5.6 % (Normal) Range: 4.6 - 7.1 :19 AFP, Tumor Marker Comments: Is Patient ? [facility] (refer to report for specific site)refer to report for address and phone number AFP TUMOR 2253 3.8 ng/mL (Normal) Range: 0.0-8.3 Comments: Ajubeo ECLIA methodologyPerformed at: Usound [facility] [address] [id number] Director: Josef Ventura PhD, Phone: [phone] :[phone] Basic Metabolic Profile (BMP) Comments: [facility] [address] [place], [place], [address] GAP 6 (Normal) Range: 5-15 CO2 27.0 [...] Range: 70-110 :19 CBC W/Diff, Automated Comments: [facility] [address] [place], [place], [address] Absolute Lymph 2.14 {X10_3/ul} (Normal) Range: 0.83-4.51 [...] (Normal) Range: 4.4-11.0 :19 Liver Profile Comments: [facility] [address] [place], [place], [address] D BILI 0.21 mg/dL (Normal) Range: 0.00-0.30 T BILI 1.50 mg/dL (Abnormal) Range: 0.20-1.00 ALT 23 U/L (Normal) Range: 12-78 ALK P 89 U/L (Normal) Range: 50-136 AST 15 U/L (Normal) Range: 15-37 GLOB 3.6 g/dL (Abnormal) Range: 2.3-3.5 ALB 3.7 g/dL (Normal) Range: 3.4-5.0 T PROT 7.3 g/dL (Normal) Range: 6.4-8.2 :19 Phosphorus Comments: [facility] [address] [place], [address] PHOS 2.5 mg/dL (Normal) Range: 2.5-4.9 :19 Prothrombin Time w/INR Comments: [facility] [address] [place], [place], [address] INR 1.1 (Normal) PROTIME 13.6 s (Normal) Range: 11.7-14.9 99-Hzu-586534:21 VITAMIN B12 AND FOLATES Comments: PATIENT WAS FASTINGPERFORMED BY: [employer] Jgcfdt1310 [facility] [id number] (91691) Folate (Folic Acid), Serum >20.0 ng/mL (Normal) Comments: A serum folate concentration of less than 3.1 ng/mL isconsidered to represent clinical deficiency. Vitamin B12 358 pg/mL (Normal) Range: 211-946 71-Vha-533558:21 CALCIFEDIOL (51281) Comments: PATIENT WAS FASTINGPERFORMED BY: [employer] [facility] Qttrix1442 [facility] [id number] Vitamin D, 25-Hydroxy 18.2 ng/mL (Abnormal) Range: 30.0-100.0 Comments: Vitamin D deficiency has been defined by the Sunspot ofMedicine and an Endocrine Society practice guideline as alevel of serum 25-OH vitamin D less than 20 ng/mL (1,2).The Endocrine Society went on to further define vitamin Dinsufficiency as a level between 21 and 29 ng/mL (2).1. IOM (Sunspot of Medicine). 2010. Dietary reference intakes for calcium and D. [place]: The National Academies Press.2. Reuben MF, Stephanie [place], Radha MILLIGAN, et al. Evaluation, treatment, and prevention of vitamin D deficiency: an Endocrine Society clinical practice guideline. JCEM. 2010; 96(7):1911-30. 04-Wtk-136891:21 LIPID PANEL (04602) Comments: PATIENT WAS FASTINGPERFORMED BY: ViVu6370 Uriostegui [facility] [id number] VLDL Cholesterol Elvin VLDLCH mg/dL (Normal) Range: [...] Cholesterol, Total 262 mg/dL (Abnormal) Range: 100-199 22-Ksl-933808:21 METABOLIC PANEL, COMPREHENSIVE Comments: PATIENT WAS FASTINGPERFORMED BY: ViVu6370 [facility] [id number] (11901) ALT (SGPT) 17 [iU]/L (Normal) Range: 0-44 [...] Glucose, Serum 102 mg/dL (Abnormal) Range: 65-99 26-Oby-018362:21 CBC, PLATELETS & AUT DIFF Comments: PATIENT WAS FASTINGPERFORMED BY: [facility]6370 [facility] [id number] (36894) Immature Grans (Abs) 0.0 {x10E3/uL} (Normal) Range: [...] Examination Comments: PATIENT WAS FASTINGPERFORMED BY: [facility] Dxocbv7032 Uriostegui [facility] [id number] Bacteria None seen (Normal) Mucus Threads Present (Normal) Epithelial Cells (non renal) 0-10 {/hpf} (Normal) Range: 0 - 10 RBC 0-2 {/hpf} (Normal) Range: 0 - 2 WBC 0-5 {/hpf} (Normal) Range: 0 - 5 :22 Basic Metabolic Profile (BMP) Comments: PLEASE ADD LIVER TO BLOOD FROM THIS MORNINGSt. [facility] [address] [place], [place], [address] GAP 6 (Normal) Range: 5-15 CO2 28.0 [...] Range: 70-110 :22 CBC W/Diff, Automated Comments: [facility] Nmp[address]xy8480 [facility] [address]. [place], [place], [address] Absolute Lymph 2.03 {X10_3/ul} (Normal) Range: 0.83-4.51 [...] 4.6-6.2 WBC 5.0 K/mm3 (Normal) Range: 4.4-11.0 07-Jan-20168:22 Liver Profile Comments: PLEASE ADD LIVER TO BLOOD FROM THIS [facility] [address] [place], [place], [id number] D BILI 0.23 mg/dL (Normal) Range: 0.00-0.30 T BILI 1.60 mg/dL (Abnormal) Range: 0.20-1.00 ALT 27 U/L (Normal) Range: 12-78 ALK P 95 U/L (Normal) Range: 50-136 AST 17 U/L (Normal) Range: 15-37 GLOB 3.6 g/dL (Abnormal) Range: 2.3-3.5 ALB 3.9 g/dL (Normal) Range: 3.4-5.0 T PROT 7.5 g/dL (Normal) Range: 6.4-8.2 :22 Phosphorus Comments: [facility] [address] [place], [address] PHOS 2.5 mg/dL (Normal) Range: 2.5-4.9 :22 Prothrombin Time w/INR Comments: [facility] [address] [place], [address] INR 1.1 (Normal) PROTIME 13.6 s (Normal) Range: 11.7-14.9 :49 URINALYSIS, W/ MICRO (35977) Comments: PATIENT WAS FASTINGPERFORMED BY: [employer] LabCoeSnipsDbwbdj1390 [facility] [id number] Microscopic Examination See below: (Normal) Comments: Microscopic was indicated and was performed. Microscopic Examination MICRON (Normal) Comments: Microscopic follows if indicated. Nitrite, Urine Negative (Normal) Urobilinogen,Semi-Qn 0.2 mg/dL (Normal) Range: 0.2-1.0 Bilirubin Negative (Normal) Occult Blood Negative (Normal) Ketones Trace (Abnormal) Glucose Negative (Normal) Protein Negative (Normal) WBC Esterase Negative (Normal) Appearance Clear (Normal) Urine-Color Yellow (Normal) pH 6.0 (Normal) Range: 5.0-7.5 Specific Spencer 1.030 (Normal) Range: 1.005-1.030 :49 CBC W/AUTO DIFF WBC Comments: PATIENT WAS FASTINGPERFORMED BY: [employer] [facility] Wqgluq5546 [facility] [id number] Information: [id number] (22212) Immature Grans (Abs) 0.0 {x10E3/uL} (Normal) Range: [...] {x10E3/uL} (Normal) Range: 3.4-10.8 :49 LIPID PANEL (36861) Comments: PATIENT WAS FASTINGPERFORMED BY: SARA [facility]6370 [facility] [id number] LDL/HDL Ratio 4.5 {ratio_units} (Abnormal) Range: 0.0-3.6 [...] PANEL, COMPREHENSIVE Comments: PATIENT WAS FASTINGPERFORMED BY: SARA [facility] Gnpwhh8695 [facility]eguiCox [facility] [id number] (42821) ALT (SGPT) 15 [iU]/L (Normal) Range: 0-44 [...] Glucose, Serum 101 mg/dL (Abnormal) Range: 65-99 97-Iph-001086:17 Serum Creatinine AND GFR Comments: [facility] [address] [place], [address] EST GFR - AA 97 mL/min (Normal) Comments: GFR Calc EST GFR 80 mL/min (Normal) Comments: Non- GFR Calc CREAT,SERUM 0.98 mg/dL (Normal) Range: 0.70-1.30 Comments: The validity of the calculated GFR AND GFRAA in patients over70 years has not been determined. Clinical correlation isessential. :03 METABOLIC PANEL, Comments: PATIENT WAS FASTINGPERFORMED BY: Sisasa Eqwcje9038 [facility] [id number] Information: [id number] COMPREHENSIVE (60294) ALT (SGPT) 22 [iU]/L (Normal) Range: 0-44 [...] Glucose, Serum 92 mg/dL (Normal) Range: 65-99 :03 PSA (PROSTATE SPECIFIC Comments: PATIENT WAS FASTINGPERFORMED BY: S[facility]asaEast Mountain HospitalNqbsmt5534 [facility] [id number] ANTIGEN) (V76.44) Prostate Specific Ag, 4.5 ng/mL (Abnormal) Range: 0.0-4.0 Serum Comments: Melodie ECLIA methodology. .According to the [place] Urological Association, Serum PSA shoulddecrease and remain at undetectable levels after radicalprostatectomy. The AUA defines biochemical recurrence as an initialPSA value 0.2 ng/mL or greater followed by a subsequent confirmatoryPSA value 0.2 ng/mL or greater.Values obtained with d ifferent assay methods or kits cannot be usedinterchangeably. Results cannot be interpreted as absolute evidenceof the presence or absence of malignant disease. :38 CBC-Complete Blood Cnt No Diff Comments: [facility] [address] [place], [place], [address] MPV 10.0 fL (Normal) Range: 6.2-12.0 PLT [...] Range: 4.4-11.0 :38 Comprehensive Metabolic Profil Comments: [facility] [address] [place], [place], [address] GAP 7 (Normal) Range: 5-15 CO2 27.0 [...] 7-18 GLU 95 mg/dL (Normal) Range: 70-110 54-Msz-418369:38 Partial Thromboplast Time Comments: [facility] Arowtrlesx1272 [facility] [place], [place], [address] PTT 34.2 s (Normal) Range: 24.1-36.2 :38 Prothrombin Time w/INR Comments: [facility] Oswarnylaj4790 [facility] [place], [place], [address] INR 1.1 (Normal) PROTIME 14.0 s (Normal) Range: 11.7-14.9 :47 CBC-Complete Blood Cnt No Diff Comments: [facility] Yoltmpdrju4005 [facility] [place], [place], [address] MPV 10.4 fL (Normal) Range: 6.2-12.0 PLT [...] 4.6-6.2 WBC 5.4 K/mm3 (Normal) Range: 4.4-11.0 95-Frl-999056:47 Comprehensive Metabolic Profil Comments: [facility] [address] [place], [place], [address] GAP 7 (Normal) Range: 5-15 CO2 28.0 [...] 7-18 GLU 86 mg/dL (Normal) Range: 70-110 21-Udc-864924:47 Partial Thromboplast Time Comments: [facility] [address] [place], [address] PTT 35.1 s (Normal) Range: 24.1-36.2 :47 Prothrombin Time w/INR Comments: [facility] [address] [place], [address] INR 1.0 (Normal) PROTIME 13.1 s (Normal) Range: 11.7-14.9 :23 CBC W/Diff, Automated Comments: Test performed at:[facility] [address] [place], [place] [address] Absolute Lymph 1.72 {X10_3/ul} (Normal) Range: 0.83-4.51 [...] 4.6-6.2 WBC 5.4 K/mm3 (Normal) Range: 4.4-11.0 :23 Comprehensive Metabolic Profil Comments: Test performed at:[facility] [address] [place] [address] GAP 10 (Normal) Range: 5-15 CO2 26.0 [...] Comments: Please note revised CREATININE reference range lfqekobys66/22/2015. BUN 12 mg/dL (Normal) Range: 7-18 GLU 132 mg/dL (Abnormal) Range: 70-110 Comments: Fasting Glucose result greater than or equal to 126 mg/dLsuggests DIABETES MELLITUS per A.D.A. criteria. :23 Prothrombin Time w/INR Comments: Test performed at:[facility] [address] [place] [address] INR 1.0 (Normal) PROTIME 13.7 s (Normal) Range: 11.7-14.9 :25 AFP, Tumor Marker Comments: Is Patient ? NTest performed at:[facility] [address] [place] [id number] AFP TUMOR 2253 578.5 ng/mL (Abnormal) Range: 0.0-8.3 Comments: Melodie ECLIA methodologyPerformed at: [place] [address] [place], [place] [id number] Director: Toy Walls MD, Phone: [phone] at: [address] [id number] Director: Lalo Murphy PhD, Phone: [phone] 0-Ykj-470012:25 Hepatitis B C Genotype Comments: Is Patient ? NTest performed at:[facility] [address] [place] [address] COMMENT Comment (Normal) Comments: This test was developed and its performance characteristicsdetermined by [employer]. It has not been cleared or approvedby [...] HEP C GENOTYPE Test not performed (Normal) 1-Hyo-060342:25 Hepatitis C,RNA PCR Viral Load Comments: Is Patient ? NTest performed at:[facility] [address] [place] [address] TEST INFO: Comment (Normal) Comments: The quantitative [...] QT PCR HCV Not Detected {IU/mL} (Normal) 06-Oct-20148:14 LIPID PANEL (80723) Comments: PATIENT WAS FASTINGPERFORMED BY: [facility]6370 [facility] [id number]; non-emergent till apt LDL/HDL Ratio 6.1 {ratio_units} [...] METABOLIC PANEL, Comments: PATIENT WAS FASTINGPERFORMED BY: StreetInvestor70 [facility] [id number] Information: [id number] COMPREHENSIVE (99597) ALT (SGPT) 27 [iU]/L (Normal) Range: 0-44 [...] Glucose, Serum 98 mg/dL (Normal) Range: 65-99 :04 EBV Panel (41881) Comments: PATIENT NOT FASTINGPERFORMED BY: [employer] Mayorslin6370 [facility]ScientificGr[facility]ville [facility] Center [id number] Information: [id number] Interpretation: SPRCS (Normal) Comments: EBV Interpretation Chart [...] Examination Comments: PATIENT WAS FASTINGPERFORMED BY: LabCo Lelfyx2249 [facility] [id number] Bacteria None seen (Normal) Mucus Threads Present (Normal) Epithelial Cells (non renal) None seen {/hpf} (Normal) Range: 0 - 10 RBC 0-2 {/hpf} (Normal) Range: 0 - 2 WBC 0-5 {/hpf} (Normal) Range: 0 - 5 :06 PSA (PROSTATE SPECIFIC Comments: PATIENT WAS FASTINGPERFORMED BY: StreetInvestor70 Uriostegui [facility] [id number] ANTIGEN) (V76.44) Prostate Specific Ag, 3.8 ng/mL (Normal) Range: 0.0-4.0 Serum Comments: Ajubeo ECLIA methodology. .According to the [place] U[employer] Association, Serum PSA shoulddecrease and remain [...] of malignant disease. :06 URINALYSIS, W/ MICRO (61206) Comments: PATIENT WAS FASTINGPERFORMED BY: [employer] Uriostegui [facility] [id number] Microscopic Examination See below: (Normal) Comments: Microscopic was indicated and was performed. Microscopic Examination MICRON (Normal) Comments: Microscopic follows if indicated. Nitrite, Urine Negative (Normal) Urobilinogen,Semi-Qn 0.2 mg/dL (Normal) Range: 0.0-1.9 Bilirubin Negative (Normal) Occult Blood Negative (Normal) Ketones Negative (Normal) Glucose Negative (Normal) Protein Negative (Normal) WBC Esterase Negative (Normal) Appearance Clear (Normal) Urine-Color Yellow (Normal) pH 6.5 (Normal) Range: 5.0-7.5 Specific Spencer 1.019 (Normal) Range: 1.005-1.030 :06 CBC WITH MANUAL DIFF Comments: PATIENT WAS FASTINGPERFORMED BY: [employer] Pcowrr8576 [facility] [id number] Information: [id number] (83792) Immature Grans (Abs) 0.0 {x10E3/uL} (Normal) Range: [...] 4.14-5.80 WBC 5.9 {x10E3/uL} (Normal) Range: 3.4-10.8 :06 METABOLIC PANEL, COMPREHENSIVE Comments: PATIENT WAS FASTINGPERFORMED BY: DomainexFormerly [facility], [facility] [id number] (90718) ALT (SGPT) 21 [iU]/L (Normal) Range: 0-44 [...] mg/dL (Normal) Range: 65-99 :06 LIPID PANEL (36670) Comments: PATIENT WAS FASTINGPERFORMED BY: DomainexFormerly [facility], [facility] [id number] LDL/HDL Ratio 4.4 {ratio_units} (Abnormal) Range: 0.0-3.6 LDL Cholesterol Calc 122 mg/dL (Abnormal) Range: 0-99 VLDL Cholesterol Elvin 43 mg/dL (Abnormal) Range: 5-40 HDL Cholesterol 28 mg/dL (Abnormal) Comments: According to ATP-III Guidelines, HDL-C >59 mg/dL is considered anegative risk factor for CHD. Triglycerides 216 mg/dL (Abnormal) Range: 0-149 Cholesterol, Total 193 mg/dL (Normal) Range: 100-199 8-Gky-756260:41 VARICELLA-ZOSTER ANTBODY Comments: PATIENT NOT FASTINGPERFORMED BY: S[facility]asaEast Mountain HospitalNqmqbg4245 [facility] [id number] Information: [id number] (65745) Varicella Zoster IgG 2.01 {index} (Normal) Comments: Nonimmune <0.91 Equivocal 0.91 - 1.09 Immune >1.09 :37 Microscopic Examination Comments: PATIENT WAS FASTINGPERFORMED BY: Sisasa Hgpdha3381 [facility] [id number] Bacteria None seen (Normal) Mucus Threads Present (Normal) Epithelial Cells (non renal) 0-10 {/hpf} (Normal) Range: 0 - 10 RBC 0-3 {/hpf} (Normal) Range: 0 - 3 WBC 0-5 {/hpf} (Normal) Range: 0 - 5 :37 URINALYSIS, W/ MICRO (03682) Comments: PATIENT WAS FASTINGPERFORMED BY: Sisasa Mywbxy3945 [facility] [id number] Microscopic Examination See below: (Normal) Microscopic Examination MICRON (Normal) Comments: Microscopic follows if indicated. Nitrite, Urine Negative (Normal) Urobilinogen,Semi-Qn 1.0 mg/dL (Normal) Range: 0.0-1.9 Bilirubin Negative (Normal) Occult Blood Negative (Normal) Ketones Negative (Normal) Glucose Negative (Normal) Protein Negative (Normal) WBC Esterase Negative (Normal) Appearance Clear (Normal) Urine-Color Yellow (Normal) pH 6.0 (Normal) Range: 5.0-7.5 Specific Spencer 1.021 (Normal) Range: 1.005-1.030 02-Apr-20138:37 CBC WITH MANUAL DIFF Comments: PATIENT WAS FASTINGPERFORMED BY: [facility]6370 [facility] [id number] Information: [id number] (20040) Immature Grans (Abs) 0.0 {x10E3/uL} (Normal) Range: [...] (PROSTATE SPECIFIC Comments: PATIENT WAS FASTINGPERFORMED BY: DomainexFormerly [facility], [facility] [id number] ANTIGEN) (V76.44) Prostate Specific Ag, 3.6 ng/mL (Normal) Range: 0.0-4.0 Serum Comments: [employer] ECLIA methodology. .According to the [place] U[employer], Serum PSA shoulddecrease and remain at undetectable levels after radicalprostatectomy. The AUA defines biochemical recurrence as an initialPSA value 0.2 ng/mL or greater followed by a subsequent confirmatoryPSA value 0.2 ng/mL or greater.Values obtained with d ifferent assay methods or kits cannot be usedinterchangeably. Results cannot be interpreted as absolute evidenceof the presence or absence of malignant disease. :37 LIPID PANEL (87663) Comments: PATIENT WAS FASTINGPERFORMED BY: DomainexFormerly [facility], [facility] [id number] LDL/HDL Ratio 4.8 {ratio_units} (Abnormal) Range: 0.0-3.6 [...] PANEL, COMPREHENSIVE Comments: PATIENT WAS FASTINGPERFORMED BY: [employer] [facility] [id number] (15420) ALT (SGPT) 19 [iU]/L (Normal) Range: 0-44 [...] Glucose, Serum 94 mg/dL (Normal) Range: 65-99 73-Rcp-051277:43 PPD (15656) Comments: PT RECEIVED THIS AT WORK SKIN TEST INTRADERMAL TB negatvie (Normal) Comments: pt received this at work 03-Oct-20118:33 LIPID PANEL (05672) Comments: PATIENT WAS FASTINGPERFORMED BY: LabCoEast Mountain HospitalIubgza1749 [facility] [id number] LDL/HDL Ratio 3.8 {ratio_units} (Abnormal) Range: 0.0-3.6 LDL Cholesterol Calc 122 mg/dL (Abnormal) Range: 0-99 VLDL Cholesterol Elvin 33 mg/dL (Normal) Range: 5-40 HDL Cholesterol 32 mg/dL (Abnormal) Comments: According to ATP-III Guidelines, HDL-C >59 mg/dL is considered anegative risk factor for CHD. Triglycerides 167 mg/dL (Abnormal) Range: 0-149 Cholesterol, Total 187 mg/dL (Normal) Range: 100-199 03-Oct-20118:33 METABOLIC PANEL, Comments: PATIENT WAS FASTINGPERFORMED BY: LabCoEast Mountain HospitalPpbeza7662 [facility] [id number] Information: [id number] COMPREHENSIVE (77935) ALT (SGPT) 21 [iU]/L (Normal) Range: 0-55 [...] CHOL 193 mg/dL (Normal) Comments: <200 mg/dL Rmiyomlnn804-591 mg/dL Borderline>240 mg/dL High Risk 82-Mss-39082:27 BMP BUN 18 mg/dL (Normal) Range: 7-18 [...] Details Instructions Pleural effusion on right : Follow up in 3.5 weeks Indication: Pleural effusion on right Pneumonia : Reviewed Diagnostic Tests Indication: Pneumonia Bilateral inguinal hernia without obstruction or gangrene : Reviewed Diagnostic Tests Indication: Bilateral inguinal hernia without obstruction or gangrene Bilateral inguinal hernia without obstruction or gangrene : Reviewed Portfolio Strategist Letter Indication: Bilateral inguinal hernia without obstruction [...] Indication: Prostate cancer Prostate cancer : Reviewed Portfolio Strategist Letter Indication: Prostate cancer Hypertensive heart disease [...] Indication: Mixed hyperlipidemia Prostate cancer : Reviewed Portfolio Strategist Letter Indication: Prostate cancer Hypertensive 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 heart failure : HTN/CAD Red Flags Indication: Hypertensive 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 heart failure Mixed hyperlipidemia : Cholesterol mgmt Indication: Mixed hyperlipidemia Mixed hyperlipidemia : Follow up in 6 months Indication: Mixed hyperlipidemia Prostate cancer : Reviewed Portfolio Strategist Letter- urologist - dr Miller Indication: Prostate cancer Hypertensive 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 heart failure : HTN/CAD Red Flags Indication: Hypertensive 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 heart failure Mixed hyperlipidemia : Cholesterol mgmt Indication: Mixed hyperlipidemia Hepatocellular carcinoma : Reviewed Lab Indication: Hepatocellular carcinoma Encounter for screening for malignant neoplasm of prostate (Renamed from Screening for prostate cancer) : Reviewed Portfolio Strategist Letter Indication: Encounter for screening for malignant [...] without heart failure Prostate cancer : Reviewed Portfolio Strategist Letter- Dr Miller Indication: Prostate cancer Mixed hyperlipidemia : Cholesterol mgmt Indication: Mixed hyperlipidemia Hepatocellular carcinoma : Reviewed Lab: nornmal alpha feta prot Indication: Hepatocellular carcinoma Hepatocellular carcinoma : Reviewed Portfolio Strategist Letter Indication: Hepatocellular carcinoma Hepatocellular carcinoma : Reviewed Diagnostic Tests Indication: Hepatocellular carcinoma Prostate cancer : Reviewed Lab Indication: Prostate cancer Prostate cancer : Reviewed Portfolio Strategist Letter Indication: Prostate cancer Prostate cancer : [...] disease without heart failure Planned Observations TSH (59850)Indication: Mixed hyperlipidemia On: : Request URINALYSIS, W/ MICRO ([id number])Indication: Hypertensive 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 heart failure On: : Request MICROALBUMIN: CREATININE RATIO ([id number]) AND ([id number])Indication: Hypertensive 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 heart failure On: : Request METABOLIC PANEL, COMPREHENSIVE ([id number])Indication: Hypertensive 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 heart failure On: : Request CBC W/AUTO DIFF WBC ([id number])Indication: Hypertensive 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 heart failure On: : Request LIPOPROTEIN, BLD, BY NMR ([id number])Indication: Mixed hyperlipidemia On: : Request CALCIFEDIOL ([id number])Indication: Vitamin D deficiency On: :01 Request LIPID PANEL ([id number])Indication: Mixed hyperlipidemia On: :07 Request METABOLIC PANEL, COMPREHENSIVE ([id number])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 On: :07 Request CBC W/AUTO DIFF WBC ([id number])Indication: Lymphocytosis On: :07 Request LIPID PANEL ([id number])Indication: Hypertensive 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 heart failure On: 3-Yzu-195542:39 Request METABOLIC PANEL, COMPREHENSIVE ([id number])Indication: Hypertensive 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 heart failure On: 8-Qca-652137:39 Request METABOLIC PANEL, COMPREHENSIVE ([id number])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 On: 8-Zwt-848623:08 Request HEPATIC FUNCTION PANEL ([id number])Indication: Mixed hyperlipidemia On: 06-Cfj-792255:53 Request LIPID PANEL ([id number])Indication: Mixed hyperlipidemia On: 13-Bvr-608487:52 Request METABOLIC PANEL, COMPREHENSIVE ([id number])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 On: :09 Request LIPID PANEL ([id number])Indication: Mixed hyperlipidemia On: :09 Request METABOLIC PANEL, COMPREHENSIVE ([id number])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 On: 00-Rqd-428165:55 Request LIPID PANEL ([id number])Indication: Mixed hyperlipidemia On: :54 Request CBC WITH MANUAL DIFF ([id number]) On: 39-Iin-511181:57 Request Electrolyte Panel (72592) On: 64-Ylf-260031:57 Request LIPID PANEL ([id number])Indication: Mixed hyperlipidemia On: 58-Kby-776288:03 Request METABOLIC PANEL, COMPREHENSIVE ([id number])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 On: 46-Afs-225908:03 Request CBC WITH MANUAL DIFF ([id number])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 On: 52-Beb-837572:03 Request METABOLIC PANEL, COMPREHENSIVE ([id number])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 On: 51-Rzj-439092:05 Request HEPATIC FUNCTION PANEL ([id number])Indication: Mixed hyperlipidemia On: 21-Rlw-803015:05 Request Comments: 3 mos LIPID PANEL ([id number])Indication: Mixed hyperlipidemia On: 60-Aje-421121:05 Request Planned Encounters Medical; 3 Week FU - On: 16-Jul-2018 9:15 [facility] Swetha Pedersen DO, DO, Kathleen Planned Procedures XR CHEST, 1 DECUBITUS VIEW On: 28-Jun-2018 Intent ([id number])By: Swetha Pedersen DO Comments: on R side Swetha Pedersen DO CXR PA & LAT ([id number])By: Slava DOUGLAS, On: 28-Jun-2018 Intent Swetha Patel DO Comments: do third week june ELECTROCARDIOGRAM, COMPLETE (ECG) On: 20-Nov-2017 Intent ([id number])By: Robyn Vergara Comments: nsr no acute cgh Flu Vaccine (Quadrivalent) [id number]: On: 22-May-2017 Intent Swetha Pedersen DO, DO, Comments: QUAD flu shotlot number: [id number]: 10/2017L Deltoid 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 Swetha [id number] On: 16-Jan-2017 Intent FOR OBESITY, 15 MINUTES ([id number])By: Swetha Pedersen DO, DO, Kathleen ELECTROCARDIOGRAM, COMPLETE (ECG) On: 21-Nov-2016 Intent ([id number])By: Swetha Pedersen DO Comments: nsr no acute chg Swetha Pedersen DO ADMINISTRATION OF INFLUENZA VIRUS On: 27-Apr-2015 Intent VACCINE ([id number])By: Lisa Potter DO FLU VAC, SPLIT, >3 YEARS, INTRAMUSC On: 27-Apr-2015 Intent ([id number])By: Lisa Potter DO Comments: Lot:[id number]:12/13Dose:0.5mLRoute:IMSite:L DltdGiven By:AMBROSIO signed EKG ([id number])By: Lisa Potter DO On: 13-Oct-2014 Intent Comments: ekg showed normal sinus rhythym, normal axis, no acute st/t wave changes lvh IMMUNIZ ADMNIN, 1 VAC, SNGL/COMBO On: 07-Oct-2013 Intent ([id number])By: Lisa Potter DO Comments: Lot: [id number]: [id number]: 0.5mlRoute: IMSite: L detoidGiven by: ALYSSA Sotelo PNEUM VAC ADLT/IMUMNOSPR, SBC/INTRM On: 07-Oct-2013 Intent ([id number])By: Lisa Potter DO EKG ([id number])By: Lisa Potter DO On: 07-Oct-2013 Intent Comments: ekg- sinus with left axis and lvh no change compared to prvious FLU VAC, SPLIT, >3 YEARS, INTRAMUSC On: 10-Oct-2011 Intent ([id number])By: Mila Osullivan Comments: received 04/2011 TDAP VACCINE >7 IM ([id number])By: On: 10-Oct-2011 Intent Mila Osullivan Comments: declines Eprescribed prescriptions ([id number])By: On: 01-Apr-2011 Intent Lisa Potter DO EKG ([id number])By: Mila Osullivan On: 12-Oct-2009 Intent EKG ([id number])By: Lisa Potter DO On: 25-Sep-2006 Intent Comments: [...] Advance Directives Name Dates Details Immunization Registry Dolph - Effective on Effective: 22-May-201705/22/2017. Expiration date unspecified Encounters Office Visit On: 28-Jun-2018 12:06 Encounter Reason: [...] patient does not have durable power of divorce attorney or living will. The patient has [...] patient does not have durable power of divorce attorney or living will. 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 - he saw radiologist last - his apolinar and antismooth muscle ab positive hep c neg hepb a b elevated- he has procedure set up with Dr Yadav in [place]- he was told 2 treatment options for [...] he is going to go to the [facility] - no gallbladder symptoms and no [...] drink- still doping fou nde day at - he is keepingup with [...] 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
--- OUTSIDE RECORDS SUMMARY | 2018-08-26 09:50 | XMS RPT_ITS | Continuity of Care Document ---
:1945 Author Organization [facility] Address [address] [place] [address] Phone Care Team Providers Name Role Phone Swetha Pedersen DO Unavailable Carolyn VICKERS MD , William Dash Unavailable Dr. Josef Patton Unavailable Roberto Folres MD Unavailable Mckenzie Love Unavailable Unavailable Messenger, CRACKING STILL OPERATOR Jennifer Unavailable Unavailable Long CRACKING STILL OPERATOR, Denisse L Unavailable Unavailable Unavailable Unavailable Problems Name Dates [...] in size with no enhancem [facility] recurrent disease,Diagnosed in 2015: 2 procedure [...] without abnormal findings) (Z00.00, V70.0) Status: Active Pneumonia (J18.9, 486) Comments: causing hypoxia -- [...] Quantity: 180 {Tablet} Refills: 1 Ordered:14-Jun-2018 Slava Cinthia DO, Kathleen Start : 14-Jun-2018 Active Comments:Dr.Eric [...] 16-Aug-2016 End : 15-Sep-2016 Inactive Vitamin D3 86090 UNIT Oral Capsule 1 (one) Capsule Capsule once a week for 60 days Quantity: 8 {Capsule} Refills: 0 Ordered:21-Jun-2016 Long CRACKING STILL OPERATORDenisse Start : 21-Jun-2016 End : 20-Aug-2016 Inactive [...] and Lateral Result: Comments: See Note; NOTES: [facility] [address] [place] [address] Chest PA and Lateral MR#: [id number] Acct: [id number] Name: LUCAS EAST Rep #: [id number] : 1945 M 73 From: Jamar Dong MD PCP: Swetha Pedersen DO Status: REG CLI Study: Chest PA and Lateral Date of Exam: 06/19/18 Exam# [id number] Ordering Dr: Jose Tovar DO STUDY: X-RAY [...] CC: Jose Tovar DO; Geno Pedersen DO Production Mechanic: Signed 11-May-2018 Emergency Department Summary Result: Comments: See Note; NOTES: [facility] [address] [place] [place] [address] Emergency Department Summary 05/11/18 1307 MR#: [id number] Acct: [id number] Name: LUCAS EAST Rep #: [id number] : 1945 73 From: Cristina Lyles MD PCP: Swetha Pedersen DO Status: REG ER - ER Visit Summary Date of Service: 05/11/18 Chief Complaint: Wound check Histo ry of Present Illness: The patient is a 73 M presenting for wound check. Patient had surgery at [facility] on April 25 for a strangulated hernia. This was complicated by sepsis. [facility]. He was discharged [...] acquired pneumonia. Discussed with Dr. Meeks at [facility]. He is in agreement that the patient can stay at [facility] as the patient wishes. Discussed with Dr. Hyde and patient will be admitted. Disposition: Admission Impression: Healthcare acquired pneumonia This note was generated with Synovex dictation software. It may contain incorrect words, spelling, and punctuation that were not noted in review of the chart prior to signing ED Disposition - Plan for ED Patient: Chief Complaint: Wound Check Referrals: Swetha Pedersen, [Primary Care Provider] - What to do if you have Problems For any increased pain, shortness of breath, bleeding, nausea or vomiting, chest pain, or any unexpect ed problems, contact your Primary Care Provider. Call [facility] ([phone]) or report to the closest Emergency Room. Call 911 if necessary. 05/11/18 1601 <Electronically signed by Shayne Lyles MD> Date Cristina Lyles MD Cosigner Signature (If Indicated): Date CC: Swetha Pedersen DO 11-May-2018 Acute Abdomen Inc Chest Result: Comments: See Note; NOTES: [facility] [address] [place] [address] Acute Abdomen Inc Chest MR#: [id number] Acct: [id number] Name: LUCAS EAST Nurys Rep #: : 1945 M 73 From: Benton Toledo MD PCP: Swetha Pedersen DO Status: REG ER Study: Acute Abdomen Inc Chest Date of Exam: 05/11/18 Exam# [id number] Ordering Dr: Cristina Lyles MD JONATAN DY: [...] CC: Cristina Lyles MD; Swetha Pedersen DO Production Mechanic: Signed 21-Apr-2018 Emergency Department Summary Result: Comments: See Note; NOTES: [facility] [address] [place] [address] Emergency Department Summary 04/21/18 0057 MR#: [id number] Acct: [id number] Name: LUCAS EAST Rep #: [id number] : 1945 73 From: Bobby Walton MD [...] 30-74 minutes This note was generated with Synovex dictation software. It may contain incorrect words, [...] your Primary Care Provider. Call [facility] ([phone]) or report to the closest Emergency Room. Call 911 if necessar y. 04/21/18 0214 <Electronically signed by Bobby Walton MD> Date Bobby Walton MD Cosigner Signature (If Indicated): Date __ CC: Swetha Pedersen DO 20-Apr-2018 Abdomen/Pelvis without Cont Result: Comments: See Note; NOTES: [facility] [address] [place] [address] Abdomen/Pelvis without Cont MR#: [id number] Acct: [id number] Name: LUCAS EAST Rep # : [id number] : 1945 M 73 From: Laverne Ladd MD PCP: Swetha Pedersen DO Status: REG ER Study: Abdomen/Pelvis without Cont Date of Exam: 04/20/18 Exam# [id number] Ordering Dr: Bobby Walton D STUDY: CT ABDOMEN AND PELVIS WITHOUT CONTRAST [...] CC: Swetha Pedersen DO; Bobby Walton MD Production Mechanic: Signed 10-Nov-2014 Abdomen/Pelvis W/WO Contrast Result: Comments: See Note; NOTES: [facility] [address] [place] [address] CAT Scan Report MR#: [id number] Acct: [id number] Name: LUCAS EAST Rep #: [id number] : 1945 M 69 From: Salvatore Gomes DO PCP: Lisa Potter DO Status: REG CLI Study: Abdomen/Pelvis W/WO Contrast Date of Exam: 11/10/14 Exam# [id number] Ordering Dr: Josef Patton MD [facility] DY: CT ABDOMEN AND PELVIS WITH [...] Gomes DO 11/10 at 13:34 EDT Tel [phone], Service support [phone], CC: Lisa Potter DO; Josef Patton Production Mechanic: Signed Immunization Name Dates Details Influenza vaccine, [...] smoker Vital Signs Date Test Result Details 84-Knu-140275:02 Comments: 12/2017 last eye exam was tested [...] kg/m2 Body Surface Area Calculated 2.34 m2 47-Iue-079261:38 Temperature 98.1 f Comments: Method: Temporal Pulse [...] Description Value Details :26 PSA,Total- Diagnostic Comments: [facility] [address] [place], [place], [id number] PSA, DIAGNOSTIC 3.71 ng/mL (Normal) Range: 0.0-4.0 Comments: This test was performed using the TPSA assay method for theDimension chemistry system. Values obtained with differentassay methods cannot be used interchangably.When changing PSA assays in the course of monitoring apatient, additional sequential testing should be carriedout to confirm baseline values. 11-Tpj-521437:33 Basic Metabolic Profile (BMP) Comments: Send Results To: Swetha Hudson for Laboratory Test [facility]emia[facility] [address] [place], [address] GAP 11 (Normal) Range: 5-15 CO2 [...] Comments: Please note revised GLUCOSE reference range snjhgaulw48/02/2018. 04-Qef-400538:29 Urinalysis, Complete Comments: Order Date: 05/11/18How was Urine Obtained? [facility] [address] [place], [address] MUCUS, URINE 2+ {/hpf} (Normal) BACTERIA [...] (Normal) CLARITY Clear (Normal) COLOR Yellow (Normal) 20-Ayy-619331:19 Basic Metabolic Profile (BMP) Comments: [facility] [address] [place], [place], [address] GAP 7 (Normal) Range: 5-15 CO2 25.0 [...] A.D.A. criteria.Please note revised GLUCOSE reference range wbtogkocb08/02/2018. 67-Dsr-106616:19 CBC W/Diff, Automated Comments: [facility] [address] [place], [place], [address] Absolute Lymph 1.73 {X10_3/ul} (Normal) Range: 0.83-4.51 [...] 4.6-6.2 WBC 7.5 K/mm3 (Normal) Range: 4.4-11.0 49-Jky-950831:10 Basic Metabolic Profile (BMP) Comments: [facility] [address] [place], [address] GAP 12 (Normal) Range: 5-15 CO2 22.0 [...] A.D.A. criteria.Please note revised GLUCOSE reference range mtnhwpalr90/02/2018. 12-Xrz-848760:10 CBC W/Diff, Automated Comments: [facility] [address] [place], [place], [address] Absolute Lymph 2.70 {X10_3/ul} (Normal) Range: 0.83-4.51 [...] Range: 4.4-11.0 :10 Partial Thromboplast Time Comments: [facility] [address] [place], [place], [address] PTT 39.8 s (Abnormal) Range: 24.1-36.2 :10 Prothrombin Time w/INR Comments: [facility] [address] [place], [place], [address] INR 1.3 (Normal) PROTIME 16.3 s (Abnormal) Range: 11.7-14.9 :21 Microscopic Examination Comments: PATIENT WAS FASTINGPERFORMED BY: CipherGraph NetworksLev[facility] [id number] Bacteria Few (Normal) Mucus Threads Present (Normal) Cast Type Hyaline casts (Normal) Casts Present {/lpf} (Abnormal) Epithelial Cells (non renal) 0-10 {/hpf} (Normal) Range: 0 - 10 RBC 0-2 {/hpf} (Normal) Range: 0 - 2 WBC 0-5 {/hpf} (Normal) Range: 0 - 5 :49 PSA,Total- Diagnostic Comments: [facility] [address] [place], [place], [address] PSA, DIAGNOSTIC 4.43 ng/mL (Abnormal) Range: 0.0-4.0 Comments: This test was performed using the TPSA assay method for SiteOne TherapeuticsRebls chemistry system. Values obtained with differentassay methods cannot be used interchangably.When changing PSA assays in the course of monitoring apatient, additional sequential testing should be carriedout to confirm baseline values. 81-Cka-300843:50 HgA1C , Office (02793) HgA1C , Office 5.7 % (Normal) Range: 4.6 - 7.1 :21 CALCIFEDIOL (37427) Comments: PATIENT WAS FASTINGPERFORMED BY: CipherGraph NetworksLev[facility] [id number] Vitamin D, 25-Hydroxy 49.2 ng/mL (Normal) Range: 30.0-100.0 Comments: Vitamin D deficiency has been defined by the [place] of[place] and an Endocrine Society practice guideline as alevel of serum 25-OH vitamin D less than 20 ng/mL (1,2).The Endocrine Society went on to further define vitamin Dinsufficiency as a level between 21 and 29 ng/mL (2).1. IOM ([place] of [place]). 2010. Dietary reference intakes for calcium and D. [place]: The National Jajah Press.2. Reuben MF, Stephanie NC, Radha MILLIGAN, et al. Evaluation, treatment, and prevention of vitamin D deficiency: an Endocrine Society clinical practice guideline. JCEM. 2010; 96(7):1911-30. :21 TSH (27948) Comments: PATIENT WAS FASTINGPERFORMED BY: Guidance Software6370 Intilery.comM[facility] [id number] TSH 2.900 {uIU/mL} (Normal) Range: 0.450-4.500 :21 URINALYSIS, W/ MICRO (35120) Comments: PATIENT WAS FASTINGPERFORMED BY: CipherGraph NetworksLev[facility] [id number] Microscopic Examination See below: (Normal) Comments: Microscopic was indicated and was performed. Microscopic Examination MICRON (Normal) Comments: Microscopic follows if indicated. Nitrite, Urine Negative (Normal) Urobilinogen,Semi-Qn 0.2 mg/dL (Normal) Range: 0.2-1.0 Bilirubin Negative (Normal) Occult Blood Negative (Normal) Ketones Negative (Normal) Glucose Negative (Normal) Protein Negative (Normal) WBC Esterase Negative (Normal) Appearance Clear (Normal) Urine-Color Yellow (Normal) pH 5.0 (Normal) Range: 5.0-7.5 Specific Harper 1.016 (Normal) Range: 1.005-1.030 :21 MICROALBUMIN: CREATININE RATIO Comments: PATIENT WAS FASTINGPERFORMED BY: [employer]70 [facility]vityLev[facility] [id number] (15830) AND (24077) Alb/Creat Ratio <3.8 {mg/g_creat} (Normal) Range: 0.0-30.0 Albumin, Urine <3.0 ug/mL (Normal) Creatinine, Urine 79.5 mg/dL (Normal) 89-Ncs-95305:21 METABOLIC PANEL, COMPREHENSIVE Comments: PATIENT WAS FASTINGPERFORMED BY: [facility] Jzhwsv3968 [facility] [id number] (08523) ALT (SGPT) 16 [iU]/L (Normal) Range: 0-44 [...] 8-27 Glucose 94 mg/dL (Normal) Range: 65-99 74-Zol-37382:21 CBC W/AUTO DIFF WBC (56900) Comments: PATIENT WAS FASTINGPERFORMED BY: [facility] Agjdwd1709 [facility] [id number] Immature Grans (Abs) 0.0 {x10E3/uL} (Normal) Range: [...] 4.14-5.80 WBC 4.9 {x10E3/uL} (Normal) Range: 3.4-10.8 61-Lht-06444:21 LIPID PANEL (03813) Comments: PATIENT WAS FASTINGPERFORMED BY: LabCoBristol-Myers Squibb Children's HospitalOegmtg1891 [facility] [id number] LDL/HDL Ratio 3.0 {ratio} (Normal) Range: 0.0-3.6 [...] Microscopic Examination Comments: PATIENT WAS FASTINGPERFORMED BY: [facility] Clinical ResearchMun[facility]6370 [facility] [id number] Bacteria None seen (Normal) Mucus Threads Present (Normal) Epithelial Cells (non renal) 0-10 {/hpf} (Normal) Range: 0 - 10 RBC 0-2 {/hpf} (Normal) Range: 0 - 2 WBC 0-5 {/hpf} (Normal) Range: 0 - 5 :12 PSA,Total- Diagnostic Comments: [facility] [address] [place], [address] PSA, DIAGNOSTIC 4.20 ng/mL (Abnormal) Range: 0.0-4.0 Comments: This test was performed using the TPSA assay method for Screenz chemistry system. Values obtained with differentassay methods cannot be used interchangably.When changing PSA assays in the course of monitoring apatient, additional sequential testing should be carriedout to confirm baseline values. :49 TSH (97268) Comments: PATIENT WAS FASTINGPERFORMED BY: [facility]6370 [facility] [id number] TSH 3.530 {uIU/mL} (Normal) Range: 0.450-4.500 :49 CALCIFEDIOL (03718) Comments: PATIENT WAS FASTINGPERFORMED BY: [facility] Clinical ResearchMun[facility]6370 [facility] [id number] Vitamin D, 25-Hydroxy 28.4 ng/mL (Abnormal) Range: 30.0-100.0 Comments: Vitamin D deficiency has been defined by the [place] of[place] and an Endocrine Society practice guideline as alevel of serum 25-OH vitamin D less than 20 ng/mL (1,2).The Endocrine Society went on to further define vitamin Dinsufficiency as a level between 21 and 29 ng/mL (2).1. IOM ([place]). 2010. Dietary reference intakes for calcium and D. [place]: The National Academies Press.2. Reuben MF, Stephanie NC, Radha MILLIGAN, et al. Evaluation, treatment, and prevention of vitamin D deficiency: an Endocrine Society clinical practice guideline. JCEM. 2010; 96(7):1911-30. :49 URINALYSIS, W/ MICRO (05572) Comments: PATIENT WAS FASTINGPERFORMED BY: [employer] [place] [id number] Microscopic Examination See below: (Normal) Comments: Microscopic was indicated and was performed. Microscopic Examination MICRON (Normal) Comments: Microscopic follows if indicated. Nitrite, Urine Negative (Normal) Urobilinogen,Semi-Qn 0.2 mg/dL (Normal) Range: 0.2-1.0 Bilirubin Negative (Normal) Occult Blood Negative (Normal) Ketones Negative (Normal) Glucose Negative (Normal) Protein Negative (Normal) WBC Esterase Negative (Normal) Appearance Clear (Normal) Urine-Color Yellow (Normal) pH 5.5 (Normal) Range: 5.0-7.5 Specific Harper 1.018 (Normal) Range: 1.005-1.030 :49 MICROALBUMIN: CREATININE RATIO Comments: PATIENT WAS FASTINGPERFORMED BY: [employer]70 [facility] [place] [id number] (61654) AND (36365) Alb/Creat Ratio <3.0 {mg/g_creat} (Normal) Range: 0.0-30.0 Albumin, Urine <3.0 ug/mL (Normal) Creatinine, Urine 101.1 mg/dL (Normal) :49 METABOLIC PANEL, COMPREHENSIVE Comments: PATIENT WAS FASTINGPERFORMED BY: [employer]70 [facility]Lev[facility] [id number] (48243) ALT (SGPT) 17 [iU]/L (Normal) Range: 0-44 [...] 8-27 Glucose 100 mg/dL (Abnormal) Range: 65-99 39-Rvc-07927:49 CBC W/AUTO DIFF WBC (80835) Comments: PATIENT WAS FASTINGPERFORMED BY: LabCoBristol-Myers Squibb Children's HospitalZekrua9427 [facility] [id number] Immature Grans (Abs) 0.0 {x10E3/uL} (Normal) Range: [...] {x10E3/uL} (Normal) Range: 3.4-10.8 :49 LIPID PANEL (89312) Comments: PATIENT WAS FASTINGPERFORMED BY: [employer] Software6370 [facility]osteguiAudrain [facility] Center [id number] LDL/HDL Ratio 4.3 {ratio} (Abnormal) Range: 0.0-3.6 Comments: LDL/HDL Ratio Men Women 1/2 Avg.Risk 1.0 1.5 Av g.Risk 3.6 3.2 2X Avg.Risk 6.2 5.0 3X Avg.Risk 8.0 6.1 LDL Cholesterol Calc 149 mg/dL (Abnormal) Range: 0-99 VLDL Cholesterol Elvin 36 mg/dL (Normal) Range: 5-40 HDL Cholesterol 35 mg/dL (Abnormal) Triglycerides 181 mg/dL (Abnormal) Range: 0-149 Cholesterol, Total 220 mg/dL (Abnormal) Range: 100-199 48-Dcq-571393:47 Microscopic Examination Comments: PATIENT WAS FASTINGPERFORMED BY: [employer]6370 [facility] [id number] Bacteria Few (Normal) Mucus Threads Present (Normal) Epithelial Cells (non renal) 0-10 {/hpf} (Normal) Range: 0 - 10 RBC 0-2 {/hpf} (Normal) Range: 0 - 2 WBC 0-5 {/hpf} (Normal) Range: 0 - 5 :53 AFP, Tumor Marker Comments: FAX AFP RESULTS TO [phone] Patient ? NComments: ALPHA FETOPROTIEN,SERUM RTLabCorp (refer to report for specific site)refer to report for address and phone number AFP TUMOR 2253 3.1 ng/mL (Normal) Range: 0.0-8.3 Comments: Melodie ECLIA methodology :53 Basic Metabolic Profile (BMP) Comments: Comments: ALPHA FETOPROTIEN,SERUM [facility] [address] [place], [place], [address] GAP 5 (Normal) Range: 5-15 CO2 29.0 [...] :53 Liver Profile Comments: Comments: ALPHA FETOPROTIEN,SERUM [facility] [address] [place], [place], [address] D BILI 0.24 mg/dL (Normal) Range: 0.00-0.30 T BILI 1.10 mg/dL (Abnormal) Range: 0.20-1.00 ALT 30 U/L (Normal) Range: 12-78 ALK P 85 U/L (Normal) Range: 45-117 AST 17 U/L (Normal) Range: 15-37 GLOB 3.5 g/dL (Normal) Range: 2.3-3.5 ALB 3.9 g/dL (Normal) Range: 3.4-5.0 T PROT 7.4 g/dL (Normal) Range: 6.4-8.2 :53 Phosphorus Comments: Comments: ALPHA FETOPROTIEN,SERUM [facility]WooPark[facility] [address] [place], [address] PHOS 2.6 mg/dL (Normal) Range: 2.5-4.9 :53 Prothrombin Time w/INR Comments: [facility] [address] [place], [address] INR 1.1 (Normal) PROTIME 13.7 s (Normal) Range: 11.7-14.9 :47 TSH (58630) Comments: PATIENT WAS FASTINGPERFORMED BY: [employer] [facility] [id number] TSH 1.580 {uIU/mL} (Normal) Range: 0.450-4.500 :47 URINALYSIS, W/ MICRO (05432) Comments: PATIENT WAS FASTINGPERFORMED BY: [facility] [id number] Microscopic Examination See below: (Normal) Comments: Microscopic was indicated and was performed. Microscopic Examination MICRON (Normal) Comments: Microscopic follows if indicated. Nitrite, Urine Negative (Normal) Urobilinogen,Semi-Qn 0.2 mg/dL (Normal) Range: 0.2-1.0 Bilirubin Negative (Normal) Occult Blood Negative (Normal) Ketones Negative (Normal) Glucose Negative (Normal) Protein Negative (Normal) WBC Esterase Negative (Normal) Appearance Clear (Normal) Urine-Color Yellow (Normal) pH 5.5 (Normal) Range: 5.0-7.5 Specific Harper 1.026 (Normal) Range: 1.005-1.030 :47 MICROALBUMIN: CREATININE RATIO Comments: PATIENT WAS FASTINGPERFORMED BY: [facility] [id number] (57491) AND (84419) Microalb/Creat Ratio 3.1 {mg/g_creat} (Normal) Range: 0.0-30.0 Microalbumin, Urine 5.4 ug/mL (Normal) Creatinine, Urine 172.4 mg/dL (Normal) 21-Ejn-498780:47 METABOLIC PANEL, COMPREHENSIVE Comments: PATIENT WAS FASTINGPERFORMED BY: LabCoBristol-Myers Squibb Children's HospitalAurnjp7904 [facility] [id number] (02471) ALT (SGPT) 19 [iU]/L (Normal) Range: 0-44 [...] Glucose, Serum 99 mg/dL (Normal) Range: 65-99 24-Rdw-382513:47 CBC W/AUTO DIFF WBC (30528) Comments: PATIENT WAS FASTINGPERFORMED BY: [facility] Clinical ResearchCoBristol-Myers Squibb Children's HospitalTxcnuv7504 [facility] [id number] Immature Grans (Abs) 0.0 {x10E3/uL} (Normal) Range: [...] 4.14-5.80 WBC 4.9 {x10E3/uL} (Normal) Range: 3.4-10.8 27-Yov-891888:47 LIPID PANEL (70764) Comments: PATIENT WAS FASTINGPERFORMED BY: LabMun[facility] Hospital6370 [facility] [id number]; will review on 05/22 LDL/HDL Ratio 3.6 [...] Cholesterol, Total 184 mg/dL (Normal) Range: 100-199 8-Tme-403127:09 PSA,Total- Diagnostic Comments: [facility] [address] [place], [address] PSA, DIAGNOSTIC 6.85 ng/mL (Abnormal) Range: 0.0-4.0 Comments: This test was performed using the TPSA assay method for theIntercommunity Cancer Centers of America chemistry system. Values obtained with differentassay methods cannot be used interchangably.When changing PSA assays in the course of monitoring apatient, additional sequential testing should be carriedout to confirm baseline values. 4-Vcj-419283:53 AFP, Tumor Marker Comments: Is Patient ? NComments: N/ALabCorp (refer to report for specific site)refer to report for address and phone number AFP TUMOR 2253 2.1 ng/mL (Normal) Range: 0.0-8.3 Comments: [employer] ECLIA methodologyPerformed at: [facility] [address] [id number] Director: Josef Ventura PhD, Phone: [phone] 0-Otg-107869:53 Basic Metabolic Profile (BMP) Comments: Comments: N/[facility] [address] [place], [address] GAP 8 (Normal) Range: 5-15 [...] 7-18 GLU 104 mg/dL (Normal) Range: 70-110 5-Gvj-190733:53 Liver Profile Comments: Comments: N/[facility] [address] [place], [place], [address] D BILI 0.23 mg/dL (Normal) Range: 0.00-0.30 T BILI 1.00 mg/dL (Normal) Range: 0.20-1.00 ALT 26 U/L (Normal) Range: 12-78 ALK P 98 U/L (Normal) Range: 45-117 AST 19 U/L (Normal) Range: 15-37 GLOB 3.8 g/dL (Abnormal) Range: 2.3-3.5 ALB 3.9 g/dL (Normal) Range: 3.4-5.0 T PROT 7.7 g/dL (Normal) Range: 6.4-8.2 :53 Phosphorus Comments: Comments: [facility] [address] [place], [place], [address] PHOS 2.3 mg/dL (Abnormal) Range: 2.5-4.9 6-Ldp-525980:53 Prothrombin Time w/INR Comments: [facility] [address] [place], [place], [address] INR 1.1 (Normal) PROTIME 13.4 s (Normal) Range: 11.7-14.9 73-Ask-678203:24 MICROALBUMIN: CREATININE RATIO Comments: PATIENT WAS FASTINGPERFORMED BY: [employer] Clinical ResearchCo Jpodhi9326 [facility] [id number] (96354) AND (17265) Microalb/Creat Ratio 5.7 {mg/g_creat} (Normal) Range: 0.0-30.0 Microalbumin, Urine 9.7 ug/mL (Normal) Creatinine, Urine 169.8 mg/dL (Normal) 90-Sim-604011:24 VITAMIN B12 AND FOLATES Comments: PATIENT WAS FASTINGPERFORMED BY: [employer] [facility] [id number] (26751) Folate (Folic Acid), Serum >20.0 ng/mL (Normal) Comments: A serum folate concentration of less than 3.1 ng/mL isconsidered to represent clinical deficiency. Vitamin B12 323 pg/mL (Normal) Range: 211-946 13-Qrm-479366:24 CALCIFEDIOL (61583) Comments: PATIENT WAS FASTINGPERFORMED BY: [employer] Aoucrp8983 [facility] [id number] Vitamin D, 25-Hydroxy 33.2 ng/mL (Normal) Range: 30.0-100.0 Comments: Vitamin D deficiency has been defined by the [place] of[place]icine and an Endocrine Society practice guideline as alevel of serum 25-OH vitamin D less than 20 ng/mL (1,2).The Endocrine Society went on to further define vitamin Dinsufficiency as a level between 21 and 29 ng/mL (2).1. IOM ([place]). 2010. Dietary reference intakes for calcium and D. [place]: The National Academies Press.2. Reuben MF, Stephanie CLARK, Radha MILLIGAN, et al. Evaluation, treatment, and prevention of vitamin D deficiency: an Endocrine Society clinical practice guideline. JCEM. 2010; 96(7):1911-30. 28-Sep-240336:24 TSH (THYROID STIMULATING Comments: PATIENT WAS FASTINGPERFORMED BY: [employer] Vbpylf2754 [facility] [id number] HORMONE) (35800) TSH 2.410 {uIU/mL} (Normal) Range: 0.450-4.500 00-Hng-687885:24 LIPID PANEL (22453) Comments: PATIENT WAS FASTINGPERFORMED BY: [facility] ResearchMunson Healthcare [facility]6370 [facility] [id number] LDL/HDL Ratio 3.7 {ratio_units} (Abnormal) Range: 0.0-3.6 Comments: LDL/HDL Ratio Men Women 1/2 Avg.Risk 1.0 1.5 Av g.Risk 3.6 3.2 2X Avg.Risk 6.2 5.0 3X Avg.Risk 8.0 6.1 LDL Cholesterol Calc 130 mg/dL (Abnormal) Range: 0-99 VLDL Cholesterol Elvin 22 mg/dL (Normal) Range: 5-40 HDL Cholesterol 35 mg/dL (Abnormal) Triglycerides 109 mg/dL (Normal) Range: 0-149 Cholesterol, Total 187 mg/dL (Normal) Range: 100-199 11-Xgq-752786:24 METABOLIC PANEL, COMPREHENSIVE Comments: PATIENT WAS FASTINGPERFORMED BY: [employer] Uhynqt9165 [facility] [id number] ([id number]) ALT (SGPT) 30 [iU]/L (Normal) Range: 0-44 [...] Glucose, Serum 99 mg/dL (Normal) Range: 65-99 92-Ipu-510878:24 CBC, PLATELETS & AUT DIFF Comments: PATIENT WAS FASTINGPERFORMED BY: [facility] Rowuqo5139 [facility] [id number]; fu 4-24 KF (02361) Immature Grans (Abs) 0.0 {x10E3/uL} (Normal) Range: [...] Range: 0.0-8.3 Comments: Melodie ECLIA methodologyPerformed at: [facility] [address] [id number] Director: Josef Ventura PhD, Phone: [phone] :[phone] Bilirubin, Direct Comments: [facility] [address] [place], [address] D BILI 0.29 mg/dL (Normal) Range: 0.00-0.30 :30 Comprehensive Metabolic Profil Comments: [facility] Ftmddnjftz[address] [place], [place], [id number] GAP 8 (Normal) Range: 5-15 CO2 26.0 [...] mg/dL (Normal) Range: 70-110 :30 Phosphorus Comments: [facility] Jwtuiaexlf97[address] [place], [place], [id number] PHOS 2.4 mg/dL (Abnormal) Range: 2.5-4.9 :30 Prothrombin Time w/INR Comments: [facility] Xhqx[address]nfwe90[address] [place], [address] INR 1.1 (Normal) PROTIME 13.4 s (Normal) Range: 11.7-14.9 :35 CALCIFEDIOL (35731) Comments: PATIENT WAS FASTINGPERFORMED BY: [facility]CoB[facility] Squ[facility] Children's HospitalSuqzfz2231 [facility] [id number] Vitamin D, 25-Hydroxy 45.6 ng/mL (Normal) Range: 30.0-100.0 Comments: Vitamin D deficiency has been defined by the [place] of[place]icine and an Endocrine Society practice guideline as alevel of serum 25-OH vitamin D less than 20 ng/mL (1,2).The Endocrine Society went on to further define vitamin Dinsufficiency as a level between 21 and 29 ng/mL (2).1. IOM ([place] of Medicine). 2010. Dietary reference intakes for calcium and D. [place]: The National Academies Press.2. Reuben MF, Stephanie NC, Radha MILLIGAN, et al. Evaluation, treatment, and prevention of vitamin D deficiency: an Endocrine Society clinical practice guideline. JCEM. 2010; 96(7):1911-30. :35 METABOLIC PANEL, COMPREHENSIVE Comments: PATIENT WAS FASTINGPERFORMED BY: [facility]CoBristol-[facility] Squib[facility] Children's HospitalOxmmyl6589 [facility] [id number] ([id number]) ALT (SGPT) 18 [iU]/L (Normal) Range: 0-44 [...] mg/dL (Abnormal) Range: 65-99 :35 LIPID PANEL (63893) Comments: PATIENT WAS FASTINGPERFORMED BY: [facility] Cznmog5490 [facility] [id number] LDL/HDL Ratio 4.4 {ratio_units} (Abnormal) Range: 0.0-3.6 Comments: LDL/HDL Ratio Men Women 1/2 Avg.Risk 1.0 1.5 Av g.Risk 3.6 3.2 2X Avg.Risk 6.2 5.0 3X Avg.Risk 8.0 6.1 LDL Cholesterol Calc 151 mg/dL (Abnormal) Range: 0-99 VLDL Cholesterol Elvin 33 mg/dL (Normal) Range: 5-40 HDL Cholesterol 34 mg/dL (Abnormal) Triglycerides 165 mg/dL (Abnormal) Range: 0-149 Cholesterol, Total 218 mg/dL (Abnormal) Range: 100-199 86-Ndw-524274:13 PSA,Total- Diagnostic Comments: [facility] [address] [place], [place], [address] PSA, DIAGNOSTIC 6.86 ng/mL (Abnormal) Range: 0.0-4.0 Comments: This test was performed using the TPSA assay method for theinMEDIA CorporationSweat[employer] chemistry system. Values obtained with differentassay methods cannot be used interchangably.When changing PSA assays in the course of monitoring apatient, additional sequential testing should be carriedout to confirm baseline values. 01-Bal-523328:29 HgA1C , Office (65231) HgA1C , Office 5.6 % (Normal) Range: 4.6 - 7.1 :19 AFP, Tumor Marker Comments: Is Patient ? [facility] (refer to report for specific site)refer to report for address and phone number AFP TUMOR 2253 3.8 ng/mL (Normal) Range: 0.0-8.3 Comments: Melodie ECLIA methodologyPerformed at: - [facility] [address] [id number] Director: Josef Ventura PhD, Phone: [phone] :[phone] Basic Metabolic Profile (BMP) Comments: [facility] [address] [place], [address] GAP 6 (Normal) Range: 5-15 [...] Range: 70-110 :19 CBC W/Diff, Automated Comments: [facility] [address] [place], [address] Absolute Lymph 2.14 {X10_3/ul} (Normal) [...] (Normal) Range: 4.4-11.0 :19 Liver Profile Comments: [facility] [address] [place], [place], [address] D BILI 0.21 mg/dL (Normal) Range: 0.00-0.30 T BILI 1.50 mg/dL (Abnormal) Range: 0.20-1.00 ALT 23 U/L (Normal) Range: 12-78 ALK P 89 U/L (Normal) Range: 50-136 AST 15 U/L (Normal) Range: 15-37 GLOB 3.6 g/dL (Abnormal) Range: 2.3-3.5 ALB 3.7 g/dL (Normal) Range: 3.4-5.0 T PROT 7.3 g/dL (Normal) Range: 6.4-8.2 :19 Phosphorus Comments: [facility] Expejsdopx0546 [facility] [place], [place], [id number] PHOS 2.5 mg/dL (Normal) Range: 2.5-4.9 :19 Prothrombin Time w/INR Comments: [facility] [address] [place], [address] INR 1.1 (Normal) PROTIME 13.6 s (Normal) Range: 11.7-14.9 06-Hbm-047689:21 VITAMIN B12 AND FOLATES Comments: PATIENT WAS FASTINGPERFORMED BY: [employer] Rbcbop3671 Uriostegui RoadDublin [place] [id number] ([id number]) Folate (Folic Acid), Serum >20.0 ng/mL (Normal) Comments: A serum folate concentration of less than 3.1 ng/mL isconsidered to represent clinical deficiency. Vitamin B12 358 pg/mL (Normal) Range: 211-946 :21 CALCIFEDIOL (60576) Comments: PATIENT WAS FASTINGPERFORMED BY: Scint-X6370 Uri[address] [facility]blM[facility] [id number] Vitamin D, 25-Hydroxy 18.2 ng/mL (Abnormal) Range: 30.0-100.0 Comments: Vitamin D deficiency has been defined by the [place] of[place] and an Endocrine Society practice guideline as alevel of serum 25-OH vitamin D less than 20 ng/mL (1,2).The Endocrine Society went on to further define vitamin Dinsufficiency as a level between 21 and 29 ng/mL (2).1. IOM ([place]). 2010. Dietary reference intakes for calcium and D. [place]: The National Academies Press.2. Reuben MF, Stephanie NC, Radha MILLIGAN, et al. Evaluation, treatment, and prevention of vitamin D deficiency: an Endocrine Society clinical practice guideline. JCEM. 2010; 96(7):1911-30. 80-Zlk-824981:21 LIPID PANEL (37177) Comments: PATIENT WAS FASTINGPERFORMED BY: [facility] Mykxfq5985 [address] [facility] InstituteDublin [place] [id number] VLDL Cholesterol Elvin VLDLCH mg/dL (Normal) Range: [...] Cholesterol, Total 262 mg/dL (Abnormal) Range: 100-199 53-Ezy-241045:21 METABOLIC PANEL, COMPREHENSIVE Comments: PATIENT WAS FASTINGPERFORMED BY: DISKOVRe Seklnf2894 [facility] [id number] ([id number]) ALT (SGPT) 17 [iU]/L (Normal) Range: 0-44 [...] Glucose, Serum 102 mg/dL (Abnormal) Range: 65-99 12-Owa-828222:21 CBC, PLATELETS & AUT DIFF Comments: PATIENT WAS FASTINGPERFORMED BY: [facility] Healthlin6370 [facility] [id number] (15305) Immature Grans (Abs) 0.0 {x10E3/uL} (Normal) Range: [...] 4.14-5.80 WBC 5.4 {x10E3/uL} (Normal) Range: 3.4-10.8 03-Mar-20169:49 Microscopic Examination Comments: PATIENT WAS FASTINGPERFORMED BY: [facility] ResearchM[facility]6370 [facility] [id number] Bacteria None seen (Normal) Mucus Threads Present (Normal) Epithelial Cells (non renal) 0-10 {/hpf} (Normal) Range: 0 - 10 RBC 0-2 {/hpf} (Normal) Range: 0 - 2 WBC 0-5 {/hpf} (Normal) Range: 0 - 5 :22 Basic Metabolic Profile (BMP) Comments: PLEASE ADD LIVER TO BLOOD FROM THIS MORNINGWOhio[facility] Ubmsayxaig[address] [place], [place], [address] GAP 6 (Normal) Range: 5-15 CO2 28.0 [...] Range: 70-110 :22 CBC W/Diff, Automated Comments: [facility] Wu[address]uyijuv[address] [place], [place], [address] Absolute Lymph 2.03 {X10_3/ul} (Normal) Range: 0.83-4.51 [...] PLEASE ADD LIVER TO BLOOD FROM THIS [facility] Bhznnezify[address] [place], [address] D BILI 0.23 mg/dL (Normal) [...] PLEASE ADD LIVER TO BLOOD FROM THIS [facility] Lhgjgjcshs026[address] [place], [address] PHOS 2.5 mg/dL (Normal) Range: 2.5-4.9 :22 Prothrombin Time w/INR Comments: [facility] Ew[address]yglxee[address] [place], [address] INR 1.1 (Normal) PROTIME 13.6 s (Normal) Range: 11.7-14.9 :49 URINALYSIS, W/ MICRO (38561) Comments: PATIENT WAS FASTINGPERFORMED BY: [employer] Zgykdw3980 [facility] [id number] Microscopic Examination See below: (Normal) Comments: Microscopic was indicated and was performed. Microscopic Examination MICRON (Normal) Comments: Microscopic follows if indicated. Nitrite, Urine Negative (Normal) Urobilinogen,Semi-Qn 0.2 mg/dL (Normal) Range: 0.2-1.0 Bilirubin Negative (Normal) Occult Blood Negative (Normal) Ketones Trace (Abnormal) Glucose Negative (Normal) Protein Negative (Normal) WBC Esterase Negative (Normal) Appearance Clear (Normal) Urine-Color Yellow (Normal) pH 6.0 (Normal) Range: 5.0-7.5 Specific Harper 1.030 (Normal) Range: 1.005-1.030 :49 CBC W/AUTO DIFF WBC Comments: PATIENT WAS FASTINGPERFORMED BY: [employer] Iyixrz7071 [facility] [id number] Information: [id number] (83844) Immature Grans (Abs) 0.0 {x10E3/uL} (Normal) Range: [...] {x10E3/uL} (Normal) Range: 3.4-10.8 :49 LIPID PANEL (28910) Comments: PATIENT WAS FASTINGPERFORMED BY: [employer] Jbhckl7377 [facility] [id number] LDL/HDL Ratio 4.5 {ratio_units} (Abnormal) Range: 0.0-3.6 [...] PANEL, COMPREHENSIVE Comments: PATIENT WAS FASTINGPERFORMED BY: [employer]6370 [facility] [id number] (26742) ALT (SGPT) 15 [iU]/L (Normal) Range: 0-44 [...] Glucose, Serum 101 mg/dL (Abnormal) Range: 65-99 17-Cth-342353:17 Serum Creatinine AND GFR Comments: [facility] [address]axlqosp[address] [place], [place], [address] EST GFR - AA 97 mL/min (Normal) Comments: GFR Calc EST GFR 80 mL/min (Normal) Comments: Non- GFR Calc CREAT,SERUM 0.98 mg/dL (Normal) Range: 0.70-1.30 Comments: The validity of the calculated GFR AND GFRAA in patients over70 years has not been determined. Clinical correlation isessential. :03 METABOLIC PANEL, Comments: PATIENT WAS FASTINGPERFORMED BY: LabCoBristol-My[facility] Squibb Children's HospitalUxaibj5935 [facility] [id number] Information: [id number] COMPREHENSIVE (71492) ALT (SGPT) 22 [iU]/L (Normal) Range: 0-44 [...] (PROSTATE SPECIFIC Comments: PATIENT WAS FASTINGPERFORMED BY: [facility]6370 [facility] [id number] ANTIGEN) (V76.44) Prostate Specific Ag, 4.5 ng/mL (Abnormal) Range: 0.0-4.0 Serum Comments: Melodie ECLIA methodology. .According to the [place] U[employer] Association, Serum PSA shoulddecrease and remain at undetectable levels after radicalprostatectomy. The AUA defines biochemical recurrence as an initialPSA value 0.2 ng/mL or greater followed by a subsequent confirmatoryPSA value 0.2 ng/mL or greater.Values obtained with d ifferent assay methods or kits cannot be usedinterchangeably. Results cannot be interpreted as absolute evidenceof the presence or absence of malignant disease. 68-Thk-108798:38 CBC-Complete Blood Cnt No Diff Comments: [facility] [address]ol[address] [place], [place], [address] MPV 10.0 fL (Normal) Range: 6.2-12.0 PLT [...] 4.6-6.2 WBC 5.9 K/mm3 (Normal) Range: 4.4-11.0 59-Lis-602905:38 Comprehensive Metabolic Profil Comments: [facility] [address]xsb[address] [place], [place], [address] GAP 7 (Normal) Range: 5-15 CO2 27.0 [...] 7-18 GLU 95 mg/dL (Normal) Range: 70-110 67-Dpv-268126:38 Partial Thromboplast Time Comments: [facility] [address] [place], [address] PTT 34.2 s (Normal) Range: 24.1-36.2 29-Tnl-182703:38 Prothrombin Time w/INR Comments: [facility] Ywsforprhb[address] [place], [address] INR 1.1 (Normal) PROTIME 14.0 s (Normal) Range: 11.7-14.9 20-Wvn-788053:47 CBC-Complete Blood Cnt No Diff Comments: [facility] Susyyeusiv[address] [place], [place], [address] MPV 10.4 fL (Normal) Range: 6.2-12.0 PLT [...] 4.6-6.2 WBC 5.4 K/mm3 (Normal) Range: 4.4-11.0 78-Ixd-110561:47 Comprehensive Metabolic Profil Comments: [facility] Mvpgymigwh[address] [place], [address] GAP 7 (Normal) Range: 5-15 CO2 28.0 [...] 7-18 GLU 86 mg/dL (Normal) Range: 70-110 99-Ttj-602845:47 Partial Thromboplast Time Comments: [facility] [address] [place], [address] PTT 35.1 s (Normal) Range: 24.1-36.2 25-Ctv-964979:47 Prothrombin Time w/INR Comments: [facility] Z[address] [place], [address] INR 1.0 (Normal) PROTIME 13.1 s (Normal) Range: 11.7-14.9 :23 CBC W/Diff, Automated Comments: Test performed at:[facility] X[address] [place] [address] Absolute Lymph 1.72 {X10_3/ul} (Normal) Range: 0.83-4.51 [...] 07-Apr-20158:23 Comprehensive Metabolic Profil Comments: Test performed at:[facility] Mjselhzbst6836 [place], [place] [address] GAP 10 (Normal) Range: 5-15 CO2 26.0 [...] Comments: Please note revised CREATININE reference range oovnazsvk32/22/2015. BUN 12 mg/dL (Normal) Range: 7-18 GLU 132 mg/dL (Abnormal) Range: 70-110 Comments: Fasting Glucose result greater than or equal to 126 mg/dLsuggests DIABETES MELLITUS per A.D.A. criteria. 07-Apr-20158:23 Prothrombin Time w/INR Comments: Test performed at:[facility] Wyrbsaahla[address] [place] [address] INR 1.0 (Normal) PROTIME 13.7 s (Normal) Range: 11.7-14.9 3-Ike-446023:25 AFP, Tumor Marker Comments: Is Patient ? NTest performed at:[facility] Noiadayats[address] [place] [address] AFP TUMOR 2253 578.5 ng/mL (Abnormal) Range: 0.0-8.3 Comments: Melodie ECLIA methodologyPerformed at: - [facility] [id number] Director: Toy Walls MD, Phone: [phone] at: [facility] LabCo[address] [id number] Director: Lalo Murphy PhD, Phone: [phone] 5-Zqk-138857:25 Hepatitis B C Genotype Comments: Is Patient ? NTest performed at:[facility] Jhejqbwgrr4967 [facility] [place] [address] COMMENT Comment (Normal) Comments: This test was developed and its performance characteristicsdetermined by [facility]. It has not been cleared or approvedby [...] HEP C GENOTYPE Test not performed (Normal) 1-Skd-555968:25 Hepatitis C,RNA PCR Viral Load Comments: Is Patient ? NTest performed at:[facility] Ceohlzwsed9987 [facility] [place] [address] TEST INFO: Comment (Normal) Comments: The quantitative [...] Not Detected {IU/mL} (Normal) 06-Oct-20148:14 LIPID PANEL (28900) Comments: PATIENT WAS FASTINGPERFORMED BY: [facility] Pcbwkc6047 [place] [facility] [id number]; non-emergent till apt LDL/HDL Ratio 6.1 {ratio_units} [...] METABOLIC PANEL, Comments: PATIENT WAS FASTINGPERFORMED BY: [facility] [id number] Information: [id number] COMPREHENSIVE (03681) ALT (SGPT) 27 [iU]/L (Normal) Range: 0-44 [...] Glucose, Serum 98 mg/dL (Normal) Range: 65-99 66-Mha-67597:04 EBV Panel (86038) Comments: PATIENT NOT FASTINGPERFORMED BY: [employer]70 [facility] [id number] Information: [id number] Interpretation: SPRCS (Normal) Comments: EBV Interpretation Chart [...] Microscopic Examination Comments: PATIENT WAS FASTINGPERFORMED BY: [employer]6370 [employer] [facility] [id number] Bacteria None seen (Normal) Mucus Threads Present (Normal) Epithelial Cells (non renal) None seen {/hpf} (Normal) Range: 0 - 10 RBC 0-2 {/hpf} (Normal) Range: 0 - 2 WBC 0-5 {/hpf} (Normal) Range: 0 - 5 :06 PSA (PROSTATE SPECIFIC Comments: PATIENT WAS FASTINGPERFORMED BY: [employer] Line70 [address] [facility] [id number] ANTIGEN) (V76.44) Prostate Specific Ag, 3.8 ng/mL (Normal) Range: 0.0-4.0 Serum Comments: [employer] DiagnosticsIA methodology. .According to the [place] U[employer] Association, Serum PSA shoulddecrease and remain [...] of malignant disease. :06 URINALYSIS, W/ MICRO (45186) Comments: PATIENT WAS FASTINGPERFORMED BY: WePowPresbyterian HospitalBywbhs5892 [facility] [id number] Microscopic Examination See below: (Normal) Comments: Microscopic was indicated and was performed. Microscopic Examination MICRON (Normal) Comments: Microscopic follows if indicated. Nitrite, Urine Negative (Normal) Urobilinogen,Semi-Qn 0.2 mg/dL (Normal) Range: 0.0-1.9 Bilirubin Negative (Normal) Occult Blood Negative (Normal) Ketones Negative (Normal) Glucose Negative (Normal) Protein Negative (Normal) WBC Esterase Negative (Normal) Appearance Clear (Normal) Urine-Color Yellow (Normal) pH 6.5 (Normal) Range: 5.0-7.5 Specific Harper 1.019 (Normal) Range: 1.005-1.030 :06 CBC WITH MANUAL DIFF Comments: PATIENT WAS FASTINGPERFORMED BY: WePowBristol-Myers Squibb Children's HospitalZwulpj2535 [facility] [id number] Information: [id number] (79269) Immature Grans (Abs) 0.0 {x10E3/uL} (Normal) Range: [...] PANEL, COMPREHENSIVE Comments: PATIENT WAS FASTINGPERFORMED BY: LabCoBristol-Myers Squ[facility] Children's HospitalVyyejw1247 [facility] [id number] (82493) ALT (SGPT) 21 [iU]/L (Normal) Range: 0-44 [...] mg/dL (Normal) Range: 65-99 :06 LIPID PANEL (96468) Comments: PATIENT WAS FASTINGPERFORMED BY: [employer]6370 [facility] [id number] LDL/HDL Ratio 4.4 {ratio_units} (Abnormal) Range: 0.0-3.6 LDL Cholesterol Calc 122 mg/dL (Abnormal) Range: 0-99 VLDL Cholesterol Elvin 43 mg/dL (Abnormal) Range: 5-40 HDL Cholesterol 28 mg/dL (Abnormal) Comments: According to ATP-III Guidelines, HDL-C >59 mg/dL is considered anegative risk factor for CHD. Triglycerides 216 mg/dL (Abnormal) Range: 0-149 Cholesterol, Total 193 mg/dL (Normal) Range: 100-199 4-Gmg-313281:41 VARICELLA-ZOSTER ANTBODY Comments: PATIENT NOT FASTINGPERFORMED BY: [employer]70 [facility] [id number] Information: [id number] (57913) Varicella Zoster IgG 2.01 {index} (Normal) Comments: Nonimmune <0.91 Equivocal 0.91 - 1.09 Immune >1.09 :37 Microscopic Examination Comments: PATIENT WAS FASTINGPERFORMED BY: [facility] ResearchM[facility]6370 [facility] [id number] Bacteria None seen (Normal) Mucus Threads Present (Normal) Epithelial Cells (non renal) 0-10 {/hpf} (Normal) Range: 0 - 10 RBC 0-3 {/hpf} (Normal) Range: 0 - 3 WBC 0-5 {/hpf} (Normal) Range: 0 - 5 :37 URINALYSIS, W/ MICRO (46529) Comments: PATIENT WAS FASTINGPERFORMED BY: [facility] ResearchM[facility]6370 [facility] [id number] Microscopic Examination See below: (Normal) Microscopic Examination MICRON (Normal) Comments: Microscopic follows if indicated. Nitrite, Urine Negative (Normal) Urobilinogen,Semi-Qn 1.0 mg/dL (Normal) Range: 0.0-1.9 Bilirubin Negative (Normal) Occult Blood Negative (Normal) Ketones Negative (Normal) Glucose Negative (Normal) Protein Negative (Normal) WBC Esterase Negative (Normal) Appearance Clear (Normal) Urine-Color Yellow (Normal) pH 6.0 (Normal) Range: 5.0-7.5 Specific Harper 1.021 (Normal) Range: 1.005-1.030 :37 CBC WITH MANUAL DIFF Comments: PATIENT WAS FASTINGPERFORMED BY: [facility]6370 [facility] [id number] Information: [id number] (57598) Immature Grans (Abs) 0.0 {x10E3/uL} (Normal) Range: [...] (PROSTATE SPECIFIC Comments: PATIENT WAS FASTINGPERFORMED BY: [facility]6370 [facility] [id number] ANTIGEN) (V76.44) Prostate Specific Ag, 3.6 ng/mL (Normal) Range: 0.0-4.0 Serum Comments: Melodie ECLIA methodology. .According to the [place] [employer], Serum PSA shoulddecrease and remain at undetectable levels after radicalprostatectomy. The AUA defines biochemical recurrence as an initialPSA value 0.2 ng/mL or greater followed by a subsequent confirmatoryPSA value 0.2 ng/mL or greater.Values obtained with d ifferent assay methods or kits cannot be usedinterchangeably. Results cannot be interpreted as absolute evidenceof the presence or absence of malignant disease. :37 LIPID PANEL (35866) Comments: PATIENT WAS FASTINGPERFORMED BY: [employer]6370 [address] [facility] [id number] LDL/HDL Ratio 4.8 {ratio_units} (Abnormal) Range: 0.0-3.6 [...] PANEL, COMPREHENSIVE Comments: PATIENT WAS FASTINGPERFORMED BY: [employer]6370 [facility] [id number] (14235) ALT (SGPT) 19 [iU]/L (Normal) Range: 0-44 [...] Glucose, Serum 94 mg/dL (Normal) Range: 65-99 38-Fex-364166:43 PPD (28768) Comments: PT RECEIVED THIS AT WORK SKIN TEST INTRADERMAL TB negatvie (Normal) Comments: pt received this at work :33 LIPID PANEL (79819) Comments: PATIENT WAS FASTINGPERFORMED BY: [employer]6370 [facility] [id number] LDL/HDL Ratio 3.8 {ratio_units} (Abnormal) Range: 0.0-3.6 [...] METABOLIC PANEL, Comments: PATIENT WAS FASTINGPERFORMED BY: WePowBristol-Myers Squibb Children's HospitalGwyoyb5129 [facility] [id number] Information: [id number] COMPREHENSIVE (03173) ALT (SGPT) 21 [iU]/L (Normal) Range: 0-55 [...] CHOL 193 mg/dL (Normal) Comments: <200 mg/dL Fhmevpekm925-524 mg/dL Borderline>240 mg/dL High Risk :27 BMP [...] Indication: Prostate cancer Prostate cancer : Reviewed Grounds Worker Letter Indication: Prostate cancer Hypertensive heart disease [...] Indication: Mixed hyperlipidemia Prostate cancer : Reviewed Grounds Worker Letter Indication: Prostate cancer Hypertensive 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 heart failure : HTN/CAD Red Flags Indication: Hypertensive 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 heart failure Mixed hyperlipidemia : Cholesterol mgmt Indication: Mixed hyperlipidemia Mixed hyperlipidemia : Follow up in 6 months Indication: Mixed hyperlipidemia Prostate cancer : Reviewed Grounds Worker Letter- urologist - dr Miller Indication: Prostate cancer Hypertensive 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 heart failure : HTN/CAD Red Flags Indication: Hypertensive 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 heart failure Mixed hyperlipidemia : Cholesterol mgmt Indication: Mixed hyperlipidemia Hepatocellular carcinoma : Reviewed Lab Indication: Hepatocellular carcinoma Encounter for screening for malignant neoplasm of prostate (Renamed from Screening for prostate cancer) : Reviewed Grounds Worker Letter Indication: Encounter for screening for malignant [...] without heart failure Prostate cancer : Reviewed Grounds Worker Letter- Dr Miller Indication: Prostate cancer Mixed hyperlipidemia : Cholesterol mgmt Indication: Mixed hyperlipidemia Hepatocellular carcinoma : Reviewed Lab: nornmal alpha feta prot Indication: Hepatocellular carcinoma Hepatocellular carcinoma : Reviewed Grounds Worker Letter Indication: Hepatocellular carcinoma Hepatocellular carcinoma : Reviewed Diagnostic Tests Indication: Hepatocellular carcinoma Prostate cancer : Reviewed Lab Indication: Prostate cancer Prostate cancer : Reviewed Grounds Worker Letter Indication: Prostate cancer Prostate cancer : [...] Leg swelling Depression : follow up with [facility] 10 days Indication: Depression Sinusitis, acute : [...] disease without heart failure Planned Observations TSH (18520)Indication: Mixed hyperlipidemia On: 16-Tnb-86250:01 Request URINALYSIS, W/ MICRO (43273)Indication: Hypertensive 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 heart failure On: :01 Request MICROALBUMIN: CREATININE RATIO (11303) AND (81259)Indication: Hypertensive 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 heart failure On: :01 Request METABOLIC PANEL, COMPREHENSIVE (24249)Indication: Hypertensive 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 heart failure On: :01 Request CBC W/AUTO DIFF WBC (98791)Indication: Hypertensive 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 heart failure On: : Request LIPOPROTEIN, BLD, BY NMR ([id number])Indication: Mixed hyperlipidemia On: : Request CALCIFEDIOL (14300)Indication: Vitamin D deficiency On: : Request LIPID PANEL ([id number])Indication: Mixed hyperlipidemia On: :07 Request METABOLIC PANEL, COMPREHENSIVE ([id number])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 On: :07 Request CBC W/AUTO DIFF WBC ([id number])Indication: Lymphocytosis On: :07 Request LIPID PANEL ([id number])Indication: Hypertensive 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 heart failure On: 8-Qpg-925507:39 Request METABOLIC PANEL, COMPREHENSIVE ([id number])Indication: Hypertensive 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 heart failure On: 2-Bnz-994599:39 Request METABOLIC PANEL, COMPREHENSIVE ([id number])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 On: 7-Krp-135627:08 Request HEPATIC FUNCTION PANEL ([id number])Indication: Mixed hyperlipidemia On: 20-Mzv-123981:53 Request LIPID PANEL ([id number])Indication: Mixed hyperlipidemia On: 67-Zbu-565624:52 Request METABOLIC PANEL, COMPREHENSIVE ([id number])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 On: 89-Mwd-033263:09 Request LIPID PANEL ([id number])Indication: Mixed hyperlipidemia On: 16-Hjh-589043:09 Request METABOLIC PANEL, COMPREHENSIVE ([id number])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 On: 27-Pql-379634:55 Request LIPID PANEL ([id number])Indication: Mixed hyperlipidemia On: 06-Vpk-258301:54 Request CBC WITH MANUAL DIFF ([id number]) On: 15-Pfo-101523:57 Request Electrolyte Panel ([id number]) On: 04-Wbm-674669:57 Request LIPID PANEL ([id number])Indication: Mixed hyperlipidemia On: :03 Request METABOLIC PANEL, COMPREHENSIVE ([id number])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 On: : Request CBC WITH MANUAL DIFF ([id number])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 On: 16-Mcv-424589:03 Request METABOLIC PANEL, COMPREHENSIVE ([id number])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 On: 06-Uuo-733220:05 Request HEPATIC FUNCTION PANEL ([id number])Indication: Mixed hyperlipidemia On: 01-Mho-673019:05 Request Comments: 3 mos LIPID PANEL ([id number])Indication: Mixed hyperlipidemia On: 00-Ykf-714286:05 Request Planned Encounters Medical; Hospital Follow Up - On: 28-Jun-2018 12:15 [facility] Swetha Pedersen DO, DO, Kathleen Planned Procedures ELECTROCARDIOGRAM, COMPLETE (ECG) On: 20-Nov-2017 Intent ([id number])By: Robyn Vergara Comments: nsr no acute cgh Flu Vaccine (Quadrivalent) 14414Gi: On: 22-May-2017 Intent Swetha Pedersen DO, DO, Comments: QUAD flu shotlot number: [id number]: 10/2017L 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 Swetha [facility] On: 16-Jan-2017 Intent OBESITY, 15 MINUTES (G0447)By: Swetha Pedersen DO, DO, Kathleen ELECTROCARDIOGRAM, COMPLETE (ECG) On: 21-Nov-2016 Intent ([id number])By: Swetha Pedersen DO Comments: nsr no acute chg Swetha DOUGLAS ADMINISTRATION OF INFLUENZA VIRUS On: 27-Apr-2015 Intent VACCINE ([id number])By: Lisa Potter DO FLU VAC, SPLIT, >3 YEARS, INTRAMUSC On: 27-Apr-2015 Intent ([id number])By: Lisa Potter DO Comments: Lot:[id number]:12/13Dose:0.5mLRoute:IMSite:L DltdGiven By:AMBROSIO signed EKG ([id number])By: Lisa Potter DO On: 13-Oct-2014 Intent Comments: ekg showed normal sinus rhythym, normal axis, no acute st/t wave changes lvh IMMUNIZ ADMNIN, 1 VAC, SNGL/COMBO On: 07-Oct-2013 Intent ([id number])By: Lisa Potter DO Comments: Lot: [id number]: [id number]: 0.5mlRoute: IMSite: L detoidGiven by: ALYSSA Sotelo PNEUM VAC ADLT/IMUMNOSPR, SBC/INTRM On: 07-Oct-2013 Intent ([id number])By: Lisa Potter DO EKG ([id number])By: Lisa Potter DO On: 07-Oct-2013 Intent Comments: ekg- sinus with left axis and lvh no change compared to prvious FLU VAC, SPLIT, >3 YEARS, INTRAMUSC On: 10-Oct-2011 Intent ([id number])By: Mila Osullivan Comments: received 04/2011 TDAP VACCINE >7 IM ([id number])By: Shi On: 10-Oct-2011 Intent Mila Comments: declines Eprescribed prescriptions ([id number])By: On: 01-Apr-2011 Intent Lisa Potter DO EKG ([id number])By: Mila Osullivan On: 12-Oct-2009 Intent EKG ([id number])By: Lisa Potter DO On: 25-Sep-2006 Intent Comments: [...] Advance Directives Name Dates Details Immunization Registry [place] - Effective on Effective: 22-May-201705/22/2017. Expiration date unspecified Encounters Phone Encounter On: 26-Jun-2018 11:51 Encounter Diagnosis: [...] patient does not have durable power of title attorney or living will. The patient has [...] patient does not have durable power of title attorney or living will. The patient has [...] and bp is good - he saw [place] and still has right inguinal hernia- - [...] saw carolyn they plan at sometime in [facility] to get the inguinal hernia repaired [...] size - has appt in apr with GastroenterologistJenna Diagnosis: Hypertension with LVH (402.90), Hepatocellular carcinoma, [...] polyp and wasnt cancernous - he saw ticker maintainer at [facility] 12/12- Rodolfo Zavala - he ordered more labs- he didnt do chol labs for me though-- felt overwhelmed and reasonably sohis afp marker incrasing - has mass liver concerning for hepatocellular carcinoma - he saw radiologist last - his apolinar and antismooth muscle ab positive hep c neg hepb a b elevated- he has procedure set up with Dr Yadav in [place]- he was told 2 treatment options for [...] he is going to go to the [facility] - no gallbladder symptoms and no [...] better- 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
--- OUTSIDE RECORDS SUMMARY | 2018-08-26 09:51 | XMS RPT_ITS | Continuity of Care Document ---
:1945 Author Organization [facility] Address [address] [facility] [address] [place] [address] Phone Care Team Providers Name Role Phone [...] in size with no enhancem ent to [facility] recurrent disease,Diagnosed in 2015: 2 procedure Y [...] 16-Aug-2016 End : 15-Sep-2016 Inactive Vitamin D3 08267 UNIT Oral Capsule 1 (one) Capsule Capsule [...] NOTES: [facility] Medical Records Department [address] [place] [address] Emergency Department Summary 05/11/18 1307 MR#: [id number] Acct: [id number] Name: LUCAS EAST Rep #: [id number] : 1945 73 From: Cristina Lyles MD PCP: Swetha Pedersen DO Status: REG ER - ER Visit Summary Date of Service: 05/11/18 Chief Complaint: Wound check Histo ry of Present Illness: The patient is a 73 M presenting for wound check. Patient had surgery at [facility] on April 25 for a strangulated hernia. This was complicated by sepsis. He was in [facility] for 12 days. He was discharged [...] acquired pneumonia. Discussed with Dr. Meeks at [facility]. He is in agreement that the patient can stay at [facility] as the patient wishes. Discussed with Dr. Hyde and patient will be admitted. Disposition: Admission Impression: Healthcare acquired pneumonia This note was generated with [employer] dictation software. It may contain incorrect words, [...] problems, contact your Primary Care Provider. Call [facility] ([phone]) or report to the closest Emergency Room. Call 911 if necessary. 05/11/18 1601 <Electronically signed by Shayne Lyles MD> Date Cristina Lyles MD Cosigner Signature (If Indicated): Date CC: Swetha Pedersen DO 11-May-2018 Acute Abdomen Inc Chest Result: Comments: See Note; NOTES: [facility] Imaging Services [address] [place] [address] Acute Abdomen Inc Chest MR#: [id number] Acct: [id number] Name: LUCAS EAST Rep #: [id number] : 1945 73 From: Benton Toledo MD PCP: Swetha Pedersen DO Status: REG ER Study: Acute Abdomen Inc Chest Date of Exam: 05/11/18 Exam# [id number] Ordering Dr: Cristina Lyles MD JONATAN DY: [...] CC: Cristina Lyles MD; Swetha Pedersen DO Bowling Pin Refinisher: Signed 21-Apr-2018 Emergency Department Summary Result: Comments: See Note; NOTES: [facility] Medical Records Department [address] [facility] [place] [place] [address] Emergency Department Summary 04/21/18 0057 MR#: [id number] Acct: [id number] Name: LUCAS EAST Rep #: [id number] : 1945 73 From: Bobby Walton MD [...] not having vomiting. Will be transferred to [facility] as our ope rating room is down for cleaning. Discussed with our surgeon on-call Dr. Amezcua and also Dr. Cohen at [facility]. He will be transferred. Given morphine IV fluids and Zofran with good relief of sy mptoms Treatment Plan: [] Disposition: [] Impression: [] Incarcerated right inguinal hernia Small bowel obstruction secondary to incarcerated inguinal hernia Acute renal insufficiency Critical CARE time: 30-74 minutes This note was generated with [employer] dictation software. It may contain incorrect words, [...] your Primary Care Provider. Call [facility] ([phone]) or report to the closest Emergency Room. Call 911 if necessar y. 04/21/18 0214 <Electronically signed by Bobby Walton MD> Date Bobby Walton MD Cosigner Signature (If Indicated): Date __ CC: Swetha Pedersen DO 20-Apr-2018 Abdomen/Pelvis without Cont Result: Comments: See Note; NOTES: [facility] Imaging Services [address] [address] Abdomen/Pelvis without Cont MR#: [id number] Acct: [id number] Name: LUCAS EAST Rep # : [id number] : 1945 M 73 From: Laverne Ladd MD PCP: Swetha Pedersen DO Status: REG ER Study: Abdomen/Pelvis without Cont Date of Exam: 04/20/18 Exam# [id number] Ordering Dr: Bobby Walton STUDY: CT ABDOMEN [...] CC: Swetha Pedersen DO; Bobby Walton MD Bowling Pin Refinisher: Signed 10-Nov-2014 Abdomen/Pelvis W/WO Contrast Result: Comments: See Note; NOTES: [facility] Imaging Services [address] [place] [address] CAT Scan Report MR#: [id number] Acct: [id number] Name: LUCAS EAST Rep #: [id number] : 1945 M 69 From: Salvatore Gomes DO PCP: Lisa Potter DO Status: REG CLI Study: Abdomen/Pelvis W/WO Contrast Date of Exam: 11/10/14 Exam# [id number] Ordering Dr: Josef Patton MD [facility] DY: CT ABDOMEN AND PELVIS WITH [...] Gomes DO 11/10 at 13:34 EDT Tel [phone], Service support [phone], CC: Lisa Potter DO; Josef Patton Bowling Pin Refinisher: Signed Immunization Name Dates Details Influenza vaccine, [...] smoker Vital Signs Date Test Result Details 36-Trt-733745:02 Comments: 12/2017 last eye exam was tested [...] Height 0 in Head Circumference 0.00 cm 54-Mit-537713:00 Temperature 98.1 f Comments: Method: Oral Pulse [...] 0.00 cm Results Date Description Value Details 49-Ibi-184404:26 PSA,Total- Diagnostic Comments: [facility] [address] [place], [address] PSA, DIAGNOSTIC 3.71 ng/mL (Normal) Range: 0.0-4.0 Comments: This test was performed using the TPSA assay method for [employer] chemistry system. Values obtained with differentassay methods cannot be used interchangably.When changing PSA assays in the course of monitoring apatient, additional sequential testing should be carriedout to confirm baseline values. 98-Wli-518970:33 Basic Metabolic Profile (BMP) Comments: Send Results To: Swetha Hudson for Laboratory Test [facility]okalemiaKind[facility] Hospital [facility] [address] [place], [place], [address] GAP 11 (Normal) Range: 5-15 CO2 28.0 [...] Comments: Please note revised GLUCOSE reference range jlzabxrwz01/02/2018. 84-Iut-557097:29 Urinalysis, Complete Comments: Order Date: 05/11/18How was Urine Obtained? [facility] [address] [place], [place], [id number] MUCUS, URINE 2+ {/hpf} (Normal) BACTERIA 1+ [...] (Normal) CLARITY Clear (Normal) COLOR Yellow (Normal) 13-Krw-872341:19 Basic Metabolic Profile (BMP) Comments: [facility] [address] [place], [place], [address] GAP 7 (Normal) Range: 5-15 CO2 25.0 [...] A.D.A. criteria.Please note revised GLUCOSE reference range cgmnoryok88/02/2018. 32-Nvz-265365:19 CBC W/Diff, Automated Comments: [facility] [address] [place], [place], [address] Absolute Lymph 1.73 {X10_3/ul} (Normal) Range: 0.83-4.51 [...] 4.6-6.2 WBC 7.5 K/mm3 (Normal) Range: 4.4-11.0 89-Mia-077397:10 Basic Metabolic Profile (BMP) Comments: [facility] [address] [place], [place], [address] GAP 12 (Normal) Range: 5-15 CO2 22.0 [...] A.D.A. criteria.Please note revised GLUCOSE reference range etnhmeaxy87/02/2018. 25-Hia-326304:10 CBC W/Diff, Automated Comments: [facility] [address] [place], [place], [address] Absolute Lymph 2.70 {X10_3/ul} (Normal) Range: 0.83-4.51 [...] Range: 4.4-11.0 :10 Partial Thromboplast Time Comments: [facility] [address] [place], [address] PTT 39.8 s (Abnormal) Range: 24.1-36.2 :10 Prothrombin Time w/INR Comments: [facility] [address] [place], [address] INR 1.3 (Normal) PROTIME 16.3 s (Abnormal) Range: 11.7-14.9 :21 Microscopic Examination Comments: PATIENT WAS FASTINGPERFORMED BY: [facility] [id number] Bacteria Few (Normal) Mucus Threads Present (Normal) Cast Type Hyaline casts (Normal) Casts Present {/lpf} (Abnormal) Epithelial Cells (non renal) 0-10 {/hpf} (Normal) Range: 0 - 10 RBC 0-2 {/hpf} (Normal) Range: 0 - 2 WBC 0-5 {/hpf} (Normal) Range: 0 - 5 :49 PSA,Total- Diagnostic Comments: [facility] [address] [place], [address] PSA, DIAGNOSTIC 4.43 ng/mL (Abnormal) Range: 0.0-4.0 Comments: This test was performed using the TPSA assay method for the[facility] chemistry system. Values obtained with differentassay methods cannot be used interchangably.When changing PSA assays in the course of monitoring apatient, additional sequential testing should be carriedout to confirm baseline values. 99-Yut-219170:50 HgA1C , Office (44742) HgA1C , Office 5.7 % (Normal) Range: 4.6 - 7.1 :21 CALCIFEDIOL (55509) Comments: PATIENT WAS FASTINGPERFORMED BY: X[employer]ia [facility] [id number] Vitamin D, 25-Hydroxy 49.2 ng/mL (Normal) Range: 30.0-100.0 Comments: Vitamin D deficiency has been defined by the [place] ofMedicine and an Endocrine Society practice guideline as alevel of serum 25-OH vitamin D less than 20 ng/mL (1,2).The Endocrine Society went on to further define vitamin Dinsufficiency as a level between 21 and 29 ng/mL (2).1. IOM (Denhoff of Medicine). 2010. Dietary reference intakes for calcium and D. [place]: The National Academies Press.2. Reuben MF, Stephanie CLARK, Radha MILLIGAN, et al. Evaluation, treatment, and prevention of vitamin D deficiency: an Endocrine Society clinical practice guideline. JCEM. 2010; 96(7):1911-30. 15-Hbi-76900:21 TSH (25128) Comments: PATIENT WAS FASTINGPERFORMED BY: [place] [id number] TSH 2.900 {uIU/mL} (Normal) Range: 0.450-4.500 :21 URINALYSIS, W/ MICRO (93308) Comments: PATIENT WAS FASTINGPERFORMED BY: Into[employer]in [place] [id number] Microscopic Examination See below: (Normal) Comments: Microscopic was indicated and was performed. Microscopic Examination MICRON (Normal) Comments: Microscopic follows if indicated. Nitrite, Urine Negative (Normal) Urobilinogen,Semi-Qn 0.2 mg/dL (Normal) Range: 0.2-1.0 Bilirubin Negative (Normal) Occult Blood Negative (Normal) Ketones Negative (Normal) Glucose Negative (Normal) Protein Negative (Normal) WBC Esterase Negative (Normal) Appearance Clear (Normal) Urine-Color Yellow (Normal) pH 5.0 (Normal) Range: 5.0-7.5 Specific [place] 1.016 (Normal) Range: 1.005-1.030 :21 MICROALBUMIN: CREATININE RATIO Comments: PATIENT WAS FASTINGPERFORMED BY: [employer]70 EnterCloud Solutionsin [place] [id number] (50266) AND (72732) Alb/Creat Ratio <3.8 {mg/g_creat} (Normal) Range: 0.0-30.0 Albumin, Urine <3.0 ug/mL (Normal) Creatinine, Urine 79.5 mg/dL (Normal) 36-Grg-15864:21 METABOLIC PANEL, COMPREHENSIVE Comments: PATIENT WAS FASTINGPERFORMED BY: LabCoTrenton Psychiatric HospitalShkiek1327 [facility] [id number] (73241) ALT (SGPT) 16 [iU]/L (Normal) Range: 0-44 [...] 8-27 Glucose 94 mg/dL (Normal) Range: 65-99 88-Rdb-35542:21 CBC W/AUTO DIFF WBC (62770) Comments: PATIENT WAS FASTINGPERFORMED BY: LabCoTrenton Psychiatric HospitalYveudm8282 [facility] [id number] Immature Grans (Abs) 0.0 {x10E3/uL} (Normal) Range: [...] 4.14-5.80 WBC 4.9 {x10E3/uL} (Normal) Range: 3.4-10.8 13-Oso-36386:21 LIPID PANEL (96994) Comments: PATIENT WAS FASTINGPERFORMED BY: LabCoTrenton Psychiatric HospitalOhilti1146 [facility] [id number] LDL/HDL Ratio 3.0 {ratio} (Normal) Range: 0.0-3.6 [...] Microscopic Examination Comments: PATIENT WAS FASTINGPERFORMED BY: [facility] Hywizf7437 [facility] [id number] Bacteria None seen (Normal) Mucus Threads Present (Normal) Epithelial Cells (non renal) 0-10 {/hpf} (Normal) Range: 0 - 10 RBC 0-2 {/hpf} (Normal) Range: 0 - 2 WBC 0-5 {/hpf} (Normal) Range: 0 - 5 :12 PSA,Total- Diagnostic Comments: [facility] [address] [place], [place], [address] PSA, DIAGNOSTIC 4.20 ng/mL (Abnormal) Range: 0.0-4.0 Comments: This test was performed using the TPSA assay method for [employer] chemistry system. Values obtained with differentassay methods cannot be used interchangably.When changing PSA assays in the course of monitoring apatient, additional sequential testing should be carriedout to confirm baseline values. :49 TSH (36913) Comments: PATIENT WAS FASTINGPERFORMED BY: [facility] Fudspu4314 [facility] [id number] TSH 3.530 {uIU/mL} (Normal) Range: 0.450-4.500 :49 CALCIFEDIOL (24252) Comments: PATIENT WAS FASTINGPERFORMED BY: [facility] Timhkp6464 [facility] [id number] Vitamin D, 25-Hydroxy 28.4 ng/mL (Abnormal) Range: 30.0-100.0 Comments: Vitamin D deficiency has been defined by the [place] ofMedicine and an Endocrine Society practice guideline as alevel of serum 25-OH vitamin D less than 20 ng/mL (1,2).The Endocrine Society went on to further define vitamin Dinsufficiency as a level between 21 and 29 ng/mL (2).1. IOM (Denhoff of Medicine). 2010. Dietary reference intakes for calcium and D. [place]: The National Academies Press.2. Reuben MF, Stephanie CLARK, Radha MILLIGAN, et al. Evaluation, treatment, and prevention of vitamin D deficiency: an Endocrine Society clinical practice guideline. JCEM. 2010; 96(7):1911-30. :49 URINALYSIS, W/ MICRO (54152) Comments: PATIENT WAS FASTINGPERFORMED BY: [facility] LawO[facility] [id number] Microscopic Examination See below: (Normal) Comments: Microscopic was indicated and was performed. Microscopic Examination MICRON (Normal) Comments: Microscopic follows if indicated. Nitrite, Urine Negative (Normal) Urobilinogen,Semi-Qn 0.2 mg/dL (Normal) Range: 0.2-1.0 Bilirubin Negative (Normal) Occult Blood Negative (Normal) Ketones Negative (Normal) Glucose Negative (Normal) Protein Negative (Normal) WBC Esterase Negative (Normal) Appearance Clear (Normal) Urine-Color Yellow (Normal) pH 5.5 (Normal) Range: 5.0-7.5 Specific [place] 1.018 (Normal) Range: 1.005-1.030 :49 MICROALBUMIN: CREATININE RATIO Comments: PATIENT WAS FASTINGPERFORMED BY: [facility] Law[facility] [id number] (36659) AND (56092) Alb/Creat Ratio <3.0 {mg/g_creat} (Normal) Range: 0.0-30.0 Albumin, Urine <3.0 ug/mL (Normal) Creatinine, Urine 101.1 mg/dL (Normal) :49 METABOLIC PANEL, COMPREHENSIVE Comments: PATIENT WAS FASTINGPERFORMED BY: RetailerSaver[employer]70 EnterCloud SolutionsOnslow [facility] Hospital [id number] (04162) ALT (SGPT) 17 [iU]/L (Normal) Range: 0-44 [...] 8-27 Glucose 100 mg/dL (Abnormal) Range: 65-99 90-Tcl-91919:49 CBC W/AUTO DIFF WBC (79040) Comments: PATIENT WAS FASTINGPERFORMED BY: [facility] Oubost0789 [facility] [id number] Immature Grans (Abs) 0.0 {x10E3/uL} (Normal) Range: [...] {x10E3/uL} (Normal) Range: 3.4-10.8 :49 LIPID PANEL (48201) Comments: PATIENT WAS FASTINGPERFORMED BY: [employer]Saver[employer]70 [facility] MediaKind[facility] [id number] LDL/HDL Ratio 4.3 {ratio} (Abnormal) Range: 0.0-3.6 Comments: LDL/HDL Ratio Men Women 1/2 Avg.Risk 1.0 1.5 Av g.Risk 3.6 3.2 2X Avg.Risk 6.2 5.0 3X Avg.Risk 8.0 6.1 LDL Cholesterol Calc 149 mg/dL (Abnormal) Range: 0-99 VLDL Cholesterol Elvin 36 mg/dL (Normal) Range: 5-40 HDL Cholesterol 35 mg/dL (Abnormal) Triglycerides 181 mg/dL (Abnormal) Range: 0-149 Cholesterol, Total 220 mg/dL (Abnormal) Range: 100-199 76-Gdi-796699:47 Microscopic Examination Comments: PATIENT WAS FASTINGPERFORMED BY: [email or web address] EnterCloud SolutionsOnslow [facility] Hospital [id number] Bacteria Few (Normal) Mucus Threads Present (Normal) Epithelial Cells (non renal) 0-10 {/hpf} (Normal) Range: 0 - 10 RBC 0-2 {/hpf} (Normal) Range: 0 - 2 WBC 0-5 {/hpf} (Normal) Range: 0 - 5 :53 AFP, Tumor Marker Comments: FAX AFP RESULTS TO [phone] Patient ? NComments: ALPHA FETOPROTIEN,SERUM RTLabCorp (refer to report for specific site)refer to report for address and phone number AFP TUMOR 2253 3.1 ng/mL (Normal) Range: 0.0-8.3 Comments: Melodie ECLIA methodology :53 Basic Metabolic Profile (BMP) Comments: Comments: ALPHA FETOPROTIEN,SERUM [facility] [address] [place], [place], [address] GAP 5 (Normal) Range: 5-15 CO2 29.0 [...] Liver Profile Comments: Comments: ALPHA FETOPROTIEN,SERUM [facility] [address]htdg[address] [place], [place], [address] D BILI 0.24 mg/dL (Normal) Range: 0.00-0.30 T BILI 1.10 mg/dL (Abnormal) Range: 0.20-1.00 ALT 30 U/L (Normal) Range: 12-78 ALK P 85 U/L (Normal) Range: 45-117 AST 17 U/L (Normal) Range: 15-37 GLOB 3.5 g/dL (Normal) Range: 2.3-3.5 ALB 3.9 g/dL (Normal) Range: 3.4-5.0 T PROT 7.4 g/dL (Normal) Range: 6.4-8.2 :53 Phosphorus Comments: Comments: ALPHA FETOPROTIEN,SERUM [facility]Bl[facility] [address]pghedcdna[address] [place], [place], [address] PHOS 2.6 mg/dL (Normal) Range: 2.5-4.9 :53 Prothrombin Time w/INR Comments: [facility] [address] [place], [id number] INR 1.1 (Normal) PROTIME 13.7 s (Normal) Range: 11.7-14.9 :47 TSH (21225) Comments: PATIENT WAS FASTINGPERFORMED BY: [employer] [facility] [id number] TSH 1.580 {uIU/mL} (Normal) Range: 0.450-4.500 :47 URINALYSIS, W/ MICRO (86408) Comments: PATIENT WAS FASTINGPERFORMED BY: [employer] [facility] [id number] Microscopic Examination See below: (Normal) Comments: Microscopic was indicated and was performed. Microscopic Examination MICRON (Normal) Comments: Microscopic follows if indicated. Nitrite, Urine Negative (Normal) Urobilinogen,Semi-Qn 0.2 mg/dL (Normal) Range: 0.2-1.0 Bilirubin Negative (Normal) Occult Blood Negative (Normal) Ketones Negative (Normal) Glucose Negative (Normal) Protein Negative (Normal) WBC Esterase Negative (Normal) Appearance Clear (Normal) Urine-Color Yellow (Normal) pH 5.5 (Normal) Range: 5.0-7.5 Specific [place] 1.026 (Normal) Range: 1.005-1.030 :47 MICROALBUMIN: CREATININE RATIO Comments: PATIENT WAS FASTINGPERFORMED BY: [employer] [facility] [id number] (69908) AND (66624) Microalb/Creat Ratio 3.1 {mg/g_creat} (Normal) Range: 0.0-30.0 Microalbumin, Urine 5.4 ug/mL (Normal) Creatinine, Urine 172.4 mg/dL (Normal) :47 METABOLIC PANEL, COMPREHENSIVE Comments: PATIENT WAS FASTINGPERFORMED BY: [facility] Hvipns0587 [facility] [id number] (44727) ALT (SGPT) 19 [iU]/L (Normal) Range: 0-44 [...] Glucose, Serum 99 mg/dL (Normal) Range: 65-99 95-Fqy-805932:47 CBC W/AUTO DIFF WBC (46430) Comments: PATIENT WAS FASTINGPERFORMED BY: Candy LabTrenton Psychiatric HospitalHgsqsw3178 [facility] [id number] Immature Grans (Abs) 0.0 {x10E3/uL} (Normal) Range: [...] 4.14-5.80 WBC 4.9 {x10E3/uL} (Normal) Range: 3.4-10.8 70-Aoq-701312:47 LIPID PANEL (73347) Comments: PATIENT WAS FASTINGPERFORMED BY: LabCoTrenton Psychiatric HospitalHouuyk5737 [facility] [id number]; will review on 05/22 LDL/HDL Ratio 3.6 [...] Cholesterol, Total 184 mg/dL (Normal) Range: 100-199 0-Afz-135933:09 PSA,Total- Diagnostic Comments: [facility] [address] [place], [address] PSA, DIAGNOSTIC 6.85 ng/mL (Abnormal) Range: 0.0-4.0 Comments: This test was performed using the TPSA assay method for theFirst[employer]ie chemistry system. Values obtained with differentassay methods cannot be used interchangably.When changing PSA assays in the course of monitoring apatient, additional sequential testing should be carriedout to confirm baseline values. 7-Buv-306842:53 AFP, Tumor Marker Comments: Is Patient ? NComments: N/ALabCorp (refer to report for specific site)refer to report for address and phone number AFP TUMOR 2253 2.1 ng/mL (Normal) Range: 0.0-8.3 Comments: ManagerComplete ECLIA methodologyPerformed at: [employer] S.[address] [id number] Director: Josef Ventura PhD, Phone: [phone] 0-Kxr-795081:53 Basic Metabolic Profile (BMP) Comments: Comments: N/[facility] [address] [place], [address] GAP 8 (Normal) Range: 5-15 [...] 7-18 GLU 104 mg/dL (Normal) Range: 70-110 5-Rer-514158:53 Liver Profile Comments: Comments: N/[facility] [address] [place], [address] D BILI 0.23 mg/dL (Normal) Range: 0.00-0.30 T BILI 1.00 mg/dL (Normal) Range: 0.20-1.00 ALT 26 U/L (Normal) Range: 12-78 ALK P 98 U/L (Normal) Range: 45-117 AST 19 U/L (Normal) Range: 15-37 GLOB 3.8 g/dL (Abnormal) Range: 2.3-3.5 ALB 3.9 g/dL (Normal) Range: 3.4-5.0 T PROT 7.7 g/dL (Normal) Range: 6.4-8.2 :53 Phosphorus Comments: Comments: /[facility] [address] [place], [place], [address] PHOS 2.3 mg/dL (Abnormal) Range: 2.5-4.9 1-Rzj-387286:53 Prothrombin Time w/INR Comments: [facility] [address]vn[address] [place], [address] INR 1.1 (Normal) PROTIME 13.4 s (Normal) Range: 11.7-14.9 11-Drv-161963:24 MICROALBUMIN: CREATININE RATIO Comments: PATIENT WAS FASTINGPERFORMED BY: [facility] Skayid1573 [facility] [id number] (43074) AND (07709) Microalb/Creat Ratio 5.7 {mg/g_creat} (Normal) Range: 0.0-30.0 Microalbumin, Urine 9.7 ug/mL (Normal) Creatinine, Urine 169.8 mg/dL (Normal) 22-Ibp-736007:24 VITAMIN B12 AND FOLATES Comments: PATIENT WAS FASTINGPERFORMED BY: [employer] [facility] Ffszdy8150 [facility] [id number] (59783) Folate (Folic Acid), Serum >20.0 ng/mL (Normal) Comments: A serum folate concentration of less than 3.1 ng/mL isconsidered to represent clinical deficiency. Vitamin B12 323 pg/mL (Normal) Range: 211-946 10-Qau-773110:24 CALCIFEDIOL (31312) Comments: PATIENT WAS FASTINGPERFORMED BY: eASIC6370 [facility] [id number] Vitamin D, 25-Hydroxy 33.2 ng/mL (Normal) Range: 30.0-100.0 Comments: Vitamin D deficiency has been defined by the [place] ofMedicine and an Endocrine Society practice guideline as alevel of serum 25-OH vitamin D less than 20 ng/mL (1,2).The Endocrine Society went on to further define vitamin Dinsufficiency as a level between 21 and 29 ng/mL (2).1. IOM ([place] of Medicine). 2010. Dietary reference intakes for calcium and D. [place]: The National Academies Press.2. Reuben MF, Stephanie NC, Radha MILLIGAN, et al. Evaluation, treatment, and prevention of vitamin D deficiency: an Endocrine Society clinical practice guideline. JCEM. 2010; 96(7):1911-30. 64-Kww-346338:24 TSH (THYROID STIMULATING Comments: PATIENT WAS FASTINGPERFORMED BY: [employer]70 [facility] [id number] HORMONE) (76071) TSH 2.410 {uIU/mL} (Normal) Range: 0.450-4.500 13-Nmv-408519:24 LIPID PANEL (91651) Comments: PATIENT WAS FASTINGPERFORMED BY: [employer] me70 [facility] [id number] LDL/HDL Ratio 3.7 {ratio_units} (Abnormal) Range: 0.0-3.6 Comments: LDL/HDL Ratio Men Women 1/2 Avg.Risk 1.0 1.5 Av g.Risk 3.6 3.2 2X Avg.Risk 6.2 5.0 3X Avg.Risk 8.0 6.1 LDL Cholesterol Calc 130 mg/dL (Abnormal) Range: 0-99 VLDL Cholesterol Elvin 22 mg/dL (Normal) Range: 5-40 HDL Cholesterol 35 mg/dL (Abnormal) Triglycerides 109 mg/dL (Normal) Range: 0-149 Cholesterol, Total 187 mg/dL (Normal) Range: 100-199 33-Lol-064459:24 METABOLIC PANEL, COMPREHENSIVE Comments: PATIENT WAS FASTINGPERFORMED BY: [facility] Jsunut6964 [facility] [id number] (93543) ALT (SGPT) 30 [iU]/L (Normal) Range: 0-44 [...] Glucose, Serum 99 mg/dL (Normal) Range: 65-99 23-Dnf-966496:24 CBC, PLATELETS & AUT DIFF Comments: PATIENT WAS FASTINGPERFORMED BY: Candy LabTrenton Psychiatric HospitalAgiwgo3895 [facility] [id number]; fu 4-24 KF (77635) Immature Grans (Abs) 0.0 {x10E3/uL} (Normal) Range: [...] Range: 0.0-8.3 Comments: Melodie ECLIA methodologyPerformed at: [employer] [facility] [facility] [address] [id number] Director: Josef Ventura PhD, Phone: [phone] 91-Quc-96681:30 Bilirubin, Direct Comments: [facility] [address] [place], [address] D BILI 0.29 mg/dL (Normal) Range: 0.00-0.30 39-Xli-39754:30 Comprehensive Metabolic Profil Comments: [facility] [address]st[address] [place], [place], [address] GAP 8 (Normal) Range: 5-15 CO2 26.0 [...] mg/dL (Normal) Range: 70-110 :30 Phosphorus Comments: [facility] [address] [place], [place], [address] PHOS 2.4 mg/dL (Abnormal) Range: 2.5-4.9 59-Kpz-42380:30 Prothrombin Time w/INR Comments: [facility] [address]dd[address] [place], [place], [address] INR 1.1 (Normal) PROTIME 13.4 s (Normal) Range: 11.7-14.9 :35 CALCIFEDIOL (13731) Comments: PATIENT WAS FASTINGPERFORMED BY: LabCoTrenton Psychiatric HospitalSppzuz1633 [facility] [id number] Vitamin D, 25-Hydroxy 45.6 ng/mL (Normal) Range: 30.0-100.0 Comments: Vitamin D deficiency has been defined by the [place] ofMedicine and an Endocrine Society practice guideline as alevel of serum 25-OH vitamin D less than 20 ng/mL (1,2).The Endocrine Society went on to further define vitamin Dinsufficiency as a level between 21 and 29 ng/mL (2).1. IOM ([place] of Medicine). 2010. Dietary reference intakes for calcium and D. [place]: The National Academies Press.2. Reuben MF, Stephanie CLARK, Radha MILLIGAN, et al. Evaluation, treatment, and prevention of vitamin D deficiency: an Endocrine Society clinical practice guideline. JCEM. 2010; 96(7):1911-30. :35 METABOLIC PANEL, COMPREHENSIVE Comments: PATIENT WAS FASTINGPERFORMED BY: LabCoTrenton Psychiatric HospitalRpbttz7894 [facility] [id number] (85188) ALT (SGPT) 18 [iU]/L (Normal) Range: 0-44 [...] mg/dL (Abnormal) Range: 65-99 :35 LIPID PANEL (72559) Comments: PATIENT WAS FASTINGPERFORMED BY: LabCoTrenton Psychiatric HospitalHnovio9425 [facility] [id number] LDL/HDL Ratio 4.4 {ratio_units} (Abnormal) Range: 0.0-3.6 [...] (Abnormal) Range: 100-199 :13 PSA,Total- Diagnostic Comments: [facility] [address] [place], [address] PSA, DIAGNOSTIC 6.86 ng/mL (Abnormal) Range: 0.0-4.0 Comments: This test was performed using the TPSA assay method for theFirstmonie chemistry system. Values obtained with differentassay methods cannot be used interchangably.When changing PSA assays in the course of monitoring apatient, additional sequential testing should be carriedout to confirm baseline values. :29 HgA1C , Office (38865) HgA1C , Office 5.6 % (Normal) Range: 4.6 - 7.1 :19 AFP, Tumor Marker Comments: Is Patient ? [facility] (refer to report for specific site)refer to report for address and phone number AFP TUMOR 2253 3.8 ng/mL (Normal) Range: 0.0-8.3 Comments: Melodie ECLIA methodologyPerformed at: - LabCo[address] [id number] Director: Josef Ventura PhD, Phone: [phone] :[phone] Basic Metabolic Profile (BMP) Comments: [facility] [address] [place], [address] GAP 6 (Normal) Range: 5-15 [...] Range: 70-110 :19 CBC W/Diff, Automated Comments: [facility] [address] [place], [address] Absolute Lymph 2.14 {X10_3/ul} (Normal) [...] (Normal) Range: 4.4-11.0 :19 Liver Profile Comments: [facility] [address] [place], [place], [id number] D BILI 0.21 mg/dL (Normal) Range: 0.00-0.30 T BILI 1.50 mg/dL (Abnormal) Range: 0.20-1.00 ALT 23 U/L (Normal) Range: 12-78 ALK P 89 U/L (Normal) Range: 50-136 AST 15 U/L (Normal) Range: 15-37 GLOB 3.6 g/dL (Abnormal) Range: 2.3-3.5 ALB 3.7 g/dL (Normal) Range: 3.4-5.0 T PROT 7.3 g/dL (Normal) Range: 6.4-8.2 :19 Phosphorus Comments: [facility] [address] [facility] [place], [place], [id number] PHOS 2.5 mg/dL (Normal) Range: 2.5-4.9 :19 Prothrombin Time w/INR Comments: [facility] [address] [place], [address] INR 1.1 (Normal) PROTIME 13.6 s (Normal) Range: 11.7-14.9 49-Ebp-252728:21 VITAMIN B12 AND FOLATES Comments: PATIENT WAS FASTINGPERFORMED BY: [facility] Qymrbn9988 [facility] [id number] (09282) Folate (Folic Acid), Serum >20.0 ng/mL (Normal) Comments: A serum folate concentration of less than 3.1 ng/mL isconsidered to represent clinical deficiency. Vitamin B12 358 pg/mL (Normal) Range: 211-946 :21 CALCIFEDIOL (52796) Comments: PATIENT WAS FASTINGPERFORMED BY: [facility] Xluhfc2683 [facility] [id number] Vitamin D, 25-Hydroxy 18.2 ng/mL (Abnormal) Range: 30.0-100.0 Comments: Vitamin D deficiency has been defined by the [place] ofMedicine and an Endocrine Society practice guideline as alevel of serum 25-OH vitamin D less than 20 ng/mL (1,2).The Endocrine Society went on to further define vitamin Dinsufficiency as a level between 21 and 29 ng/mL (2).1. IOM ([place] of Medicine). 2010. Dietary reference intakes for calcium and D. [place]: The National Academies Press.2. Reuben MF, Stephanie [place], Radha MILLIGAN, et al. Evaluation, treatment, and prevention of vitamin D deficiency: an Endocrine Society clinical practice guideline. JCEM. 2010; 96(7):1911-30. :21 LIPID PANEL (47652) Comments: PATIENT WAS FASTINGPERFORMED BY: [facility] Qpigxa3609 [facility] [place] [place] [id number] VLDL Cholesterol Elvin VLDLCH mg/dL (Normal) Range: [...] Cholesterol, Total 262 mg/dL (Abnormal) Range: 100-199 68-Aze-518598:21 METABOLIC PANEL, COMPREHENSIVE Comments: PATIENT WAS FASTINGPERFORMED BY: [employer]erSaver.com70 [facility]Cloud SolutionsO[facility] [id number] (01658) ALT (SGPT) 17 [iU]/L (Normal) Range: 0-44 [...] Glucose, Serum 102 mg/dL (Abnormal) Range: 65-99 26-Yxh-989554:21 CBC, PLATELETS & AUT DIFF Comments: PATIENT WAS FASTINGPERFORMED BY: [employer].com70 Uriostegui [facility] [id number] (47253) Immature Grans (Abs) 0.0 {x10E3/uL} (Normal) Range: [...] Microscopic Examination Comments: PATIENT WAS FASTINGPERFORMED BY: LabCoTrenton Psychiatric HospitalJjlccv2227 Uriostegui [facility] [id number] Bacteria None seen (Normal) Mucus Threads Present (Normal) Epithelial Cells (non renal) 0-10 {/hpf} (Normal) Range: 0 - 10 RBC 0-2 {/hpf} (Normal) Range: 0 - 2 WBC 0-5 {/hpf} (Normal) Range: 0 - 5 :22 Basic Metabolic Profile (BMP) Comments: PLEASE ADD LIVER [facility]LOOD [facility] [address] [place], [place], [id number] GAP 6 (Normal) Range: 5-15 CO2 28.0 [...] Range: 70-110 07-Jan-20168:22 CBC W/Diff, Automated Comments: [facility] [address] [place], [place], [address] Absolute Lymph 2.03 {X10_3/ul} (Normal) Range: 0.83-4.51 [...] PLEASE ADD LIVER TO BLOOD FROM THIS [facility] Yaaoqizfpn1472 [facility] [place], [address] D BILI 0.23 mg/dL (Normal) [...] PLEASE ADD LIVER TO BLOOD FROM THIS [facility] Luabwjmegz8198 [facility] [place], [address] PHOS 2.5 mg/dL (Normal) Range: 2.5-4.9 :22 Prothrombin Time w/INR Comments: [facility] Qlnvlerngw0002 [facility] [place], [address] INR 1.1 (Normal) PROTIME 13.6 s (Normal) Range: 11.7-14.9 :49 URINALYSIS, W/ MICRO (71847) Comments: PATIENT WAS FASTINGPERFORMED BY: LabCoTrenton Psychiatric HospitalSbgtuz3408 [facility] [id number] Microscopic Examination See below: (Normal) Comments: Microscopic was indicated and was performed. Microscopic Examination MICRON (Normal) Comments: Microscopic follows if indicated. Nitrite, Urine Negative (Normal) Urobilinogen,Semi-Qn 0.2 mg/dL (Normal) Range: 0.2-1.0 Bilirubin Negative (Normal) Occult Blood Negative (Normal) Ketones Trace (Abnormal) Glucose Negative (Normal) Protein Negative (Normal) WBC Esterase Negative (Normal) Appearance Clear (Normal) Urine-Color Yellow (Normal) pH 6.0 (Normal) Range: 5.0-7.5 Specific [place] 1.030 (Normal) Range: 1.005-1.030 :49 CBC W/AUTO DIFF WBC Comments: PATIENT WAS FASTINGPERFORMED BY: [facility] Zibary2919 [facility] [id number] Information: [id number] (93001) Immature Grans (Abs) 0.0 {x10E3/uL} (Normal) Range: [...] {x10E3/uL} (Normal) Range: 3.4-10.8 :49 LIPID PANEL (63785) Comments: PATIENT WAS FASTINGPERFORMED BY: [facility] Xnjbuj1797 [facility] [id number] LDL/HDL Ratio 4.5 {ratio_units} (Abnormal) Range: 0.0-3.6 [...] PANEL, COMPREHENSIVE Comments: PATIENT WAS FASTINGPERFORMED BY: [employer].[facility] Psychiatric HospitalWzhppn3465 [facility] [id number] (19920) ALT (SGPT) 15 [iU]/L (Normal) Range: 0-44 [...] Glucose, Serum 101 mg/dL (Abnormal) Range: 65-99 62-Mwv-585763:17 Serum Creatinine AND GFR Comments: [facility] [address] [place], [address] EST GFR - AA 97 mL/min (Normal) Comments: GFR Calc EST GFR 80 mL/min (Normal) Comments: Non- GFR Calc CREAT,SERUM 0.98 mg/dL (Normal) Range: 0.70-1.30 Comments: The validity of the calculated GFR AND GFRAA in patients over70 years has not been determined. Clinical correlation isessential. 07-Dec-20159:03 METABOLIC PANEL, Comments: PATIENT WAS FASTINGPERFORMED BY: LabCoPlains Regional Medical CenterFfvlnm0063 [facility] [id number] Information: [id number] COMPREHENSIVE (70192) ALT (SGPT) 22 [iU]/L (Normal) Range: 0-44 [...] (PROSTATE SPECIFIC Comments: PATIENT WAS FASTINGPERFORMED BY: [facility]6370 [facility] [id number] ANTIGEN) (V76.44) Prostate Specific Ag, 4.5 ng/mL (Abnormal) Range: 0.0-4.0 Serum Comments: Melodie ECLIA methodology. .According to the [place] [employer], Serum PSA shoulddecrease and remain at undetectable levels after radicalprostatectomy. The AUA defines biochemical recurrence as an initialPSA value 0.2 ng/mL or greater followed by a subsequent confirmatoryPSA value 0.2 ng/mL or greater.Values obtained with d ifferent assay methods or kits cannot be usedinterchangeably. Results cannot be interpreted as absolute evidenceof the presence or absence of malignant disease. 83-Eti-765862:38 CBC-Complete Blood Cnt No Diff Comments: [facility] [address] [place], [address] MPV 10.0 fL (Normal) Range: 6.2-12.0 PLT [...] 4.6-6.2 WBC 5.9 K/mm3 (Normal) Range: 4.4-11.0 57-Crb-432429:38 Comprehensive Metabolic Profil Comments: [facility] [address] [place], [address] GAP 7 (Normal) Range: 5-15 CO2 27.0 [...] 7-18 GLU 95 mg/dL (Normal) Range: 70-110 67-Sgc-728344:38 Partial Thromboplast Time Comments: [facility] [address] [place], [place], [address] PTT 34.2 s (Normal) Range: 24.1-36.2 :38 Prothrombin Time w/INR Comments: [facility] [address] [place], [place], [address] INR 1.1 (Normal) PROTIME 14.0 s (Normal) Range: 11.7-14.9 :47 CBC-Complete Blood Cnt No Diff Comments: [facility] [address] [place], [place], [address] MPV 10.4 fL (Normal) Range: 6.2-12.0 PLT [...] Range: 4.4-11.0 :47 Comprehensive Metabolic Profil Comments: [facility] [address] [place], [place], [address] GAP 7 (Normal) Range: 5-15 CO2 28.0 [...] 7-18 GLU 86 mg/dL (Normal) Range: 70-110 65-Ovy-358929:47 Partial Thromboplast Time Comments: [facility] Mfwtobjrpz7318 [facility]. [place], [place], [address] PTT 35.1 s (Normal) Range: 24.1-36.2 48-Wqq-569950:47 Prothrombin Time w/INR Comments: [facility] Vsznksmavc52[address] [facility] [place], [place], [address] INR 1.0 (Normal) PROTIME 13.1 s (Normal) Range: 11.7-14.9 :23 CBC W/Diff, Automated Comments: Test performed at:[facility] Bzbtivmrgf2009 [facility]. [place], [place] [address] Absolute Lymph 1.72 {X10_3/ul} (Normal) Range: 0.83-4.51 [...] 07-Apr-20158:23 Comprehensive Metabolic Profil Comments: Test performed at:[facility] [address]jcv[address] [place], [place] [address] GAP 10 (Normal) Range: 5-15 CO2 26.0 [...] Comments: Please note revised CREATININE reference range rnswyejuq40/22/2015. BUN 12 mg/dL (Normal) Range: 7-18 GLU 132 mg/dL (Abnormal) Range: 70-110 Comments: Fasting Glucose result greater than or equal to 126 mg/dLsuggests DIABETES MELLITUS per A.D.A. criteria. 07-Apr-20158:23 Prothrombin Time w/INR Comments: Test performed at:[facility] [address] [place] [address] INR 1.0 (Normal) PROTIME 13.7 s (Normal) Range: 11.7-14.9 0-Fwy-482724:25 AFP, Tumor Marker Comments: Is Patient ? NTest performed at:[facility] T[address] [place] [id number] AFP TUMOR 2253 578.5 ng/mL (Abnormal) Range: 0.0-8.3 Comments: Melodie ECLIA methodologyPerformed at: - [facility]Co[address] [id number] Director: Toy Walls MD, Phone: [phone] at: [facility] LabCo[address] [id number] Director: Lalo Murphy PhD, Phone: [phone] 5-Hek-388629:25 Hepatitis B C Genotype Comments: Is Patient ? NTest performed at:[facility] Poqnaasxzt3368 [facility] [place] [address] COMMENT Comment (Normal) Comments: This test was developed and its performance characteristicsdetermined by LabNovalar Pharmaceuticals. It has not been cleared or approvedby [...] HEP C GENOTYPE Test not performed (Normal) 3-Vpy-948563:25 Hepatitis C,RNA PCR Viral Load Comments: Is Patient ? NTest performed at:[facility] [address] [place] [address] TEST INFO: Comment (Normal) Comments: The quantitative [...] Not Detected {IU/mL} (Normal) 06-Oct-20148:14 LIPID PANEL (38321) Comments: PATIENT WAS FASTINGPERFORMED BY: SARA [facility] Umggkc5109 [facility] [id number]; non-emergent till apt LDL/HDL Ratio 6.1 {ratio_units} [...] METABOLIC PANEL, Comments: PATIENT WAS FASTINGPERFORMED BY: [facility] Pqqfmv9163 [facility] [id number] Information: [id number] COMPREHENSIVE (80936) ALT (SGPT) 27 [iU]/L (Normal) Range: 0-44 [...] Glucose, Serum 98 mg/dL (Normal) Range: 65-99 16-Psz-34225:04 EBV Panel (62248) Comments: PATIENT NOT FASTINGPERFORMED BY: Pre[facility] PharmaceuticalsUniversity [facility]6370 [facility] [id number] Information: [id number] Interpretation: [facility] (Normal) Comments: EBV Interpretation Chart [...] Microscopic Examination Comments: PATIENT WAS FASTINGPERFORMED BY: magnetic.io6370 EnterCloud SolutionsO[facility] [id number] Bacteria None seen (Normal) Mucus Threads Present (Normal) Epithelial Cells (non renal) None seen {/hpf} (Normal) Range: 0 - 10 RBC 0-2 {/hpf} (Normal) Range: 0 - 2 WBC 0-5 {/hpf} (Normal) Range: 0 - 5 :06 PSA (PROSTATE SPECIFIC Comments: PATIENT WAS FASTINGPERFORMED BY: Dragon LawOnslow Memorial Hospital [id number] ANTIGEN) (V76.44) Prostate Specific Ag, 3.8 ng/mL (Normal) Range: 0.0-4.0 Serum Comments: ManagerComplete ECLIA methodology. .According to the [place] [employer], Serum PSA shoulddecrease and remain [...] of malignant disease. :06 URINALYSIS, W/ MICRO (13749) Comments: PATIENT WAS FASTINGPERFORMED BY: [employer] Gkypat5091 [facility] [id number] Microscopic Examination See below: (Normal) Comments: Microscopic was indicated and was performed. Microscopic Examination MICRON (Normal) Comments: Microscopic follows if indicated. Nitrite, Urine Negative (Normal) Urobilinogen,Semi-Qn 0.2 mg/dL (Normal) Range: 0.0-1.9 Bilirubin Negative (Normal) Occult Blood Negative (Normal) Ketones Negative (Normal) Glucose Negative (Normal) Protein Negative (Normal) WBC Esterase Negative (Normal) Appearance Clear (Normal) Urine-Color Yellow (Normal) pH 6.5 (Normal) Range: 5.0-7.5 Specific [place] 1.019 (Normal) Range: 1.005-1.030 :06 CBC WITH MANUAL DIFF Comments: PATIENT WAS FASTINGPERFORMED BY: [employer] Avskda3654 [facility] [id number] Information: [id number] (32192) Immature Grans (Abs) 0.0 {x10E3/uL} (Normal) Range: [...] PANEL, COMPREHENSIVE Comments: PATIENT WAS FASTINGPERFORMED BY: LabCoTrenton Psychiatric HospitalKziuyc1442 [facility] [id number] (63729) ALT (SGPT) 21 [iU]/L (Normal) Range: 0-44 [...] mg/dL (Normal) Range: 65-99 :06 LIPID PANEL (26984) Comments: PATIENT WAS FASTINGPERFORMED BY: [employer]70 [facility]Cloud SolutionsO[facility] [id number] LDL/HDL Ratio 4.4 {ratio_units} (Abnormal) Range: 0.0-3.6 LDL Cholesterol Calc 122 mg/dL (Abnormal) Range: 0-99 VLDL Cholesterol Elvin 43 mg/dL (Abnormal) Range: 5-40 HDL Cholesterol 28 mg/dL (Abnormal) Comments: According to ATP-III Guidelines, HDL-C >59 mg/dL is considered anegative risk factor for CHD. Triglycerides 216 mg/dL (Abnormal) Range: 0-149 Cholesterol, Total 193 mg/dL (Normal) Range: 100-199 9-Oiv-603066:41 VARICELLA-ZOSTER ANTBODY Comments: PATIENT NOT FASTINGPERFORMED BY: Dragon LawOnslow [facility] Hospital [id number] Information: [id number] (71513) Varicella [place]oster IgG 2.01 {index} (Normal) Comments: Nonimmune <0.91 Equivocal 0.91 - 1.09 Immune >1.09 :37 Microscopic Examination Comments: PATIENT WAS FASTINGPERFORMED BY: [facility] Jwcaww7053 [facility] [id number] Bacteria None seen (Normal) Mucus Threads Present (Normal) Epithelial Cells (non renal) 0-10 {/hpf} (Normal) Range: 0 - 10 RBC 0-3 {/hpf} (Normal) Range: 0 - 3 WBC 0-5 {/hpf} (Normal) Range: 0 - 5 :37 URINALYSIS, W/ MICRO (85589) Comments: PATIENT WAS FASTINGPERFORMED BY: [employer]70 [facility] [id number] Microscopic Examination See below: (Normal) Microscopic Examination MICRON (Normal) Comments: Microscopic follows if indicated. Nitrite, Urine Negative (Normal) Urobilinogen,Semi-Qn 1.0 mg/dL (Normal) Range: 0.0-1.9 Bilirubin Negative (Normal) Occult Blood Negative (Normal) Ketones Negative (Normal) Glucose Negative (Normal) Protein Negative (Normal) WBC Esterase Negative (Normal) Appearance Clear (Normal) Urine-Color Yellow (Normal) pH 6.0 (Normal) Range: 5.0-7.5 Specific [place] 1.021 (Normal) Range: 1.005-1.030 :37 CBC WITH MANUAL DIFF Comments: PATIENT WAS FASTINGPERFORMED BY: Candy LabTrenton Psychiatric HospitalUixhkw9249 [facility] [id number] Information: [id number] (11997) Immature Grans (Abs) 0.0 {x10E3/uL} (Normal) Range: [...] (PROSTATE SPECIFIC Comments: PATIENT WAS FASTINGPERFORMED BY: [facility] Toalbs5505 [facility] [id number] ANTIGEN) (V76.44) Prostate Specific Ag, 3.6 ng/mL (Normal) Range: 0.0-4.0 Serum Comments: Melodie ECLIA methodology. .According to the [place] [employer], Serum PSA shoulddecrease and remain at undetectable levels after radicalprostatectomy. The AUA defines biochemical recurrence as an initialPSA value 0.2 ng/mL or greater followed by a subsequent confirmatoryPSA value 0.2 ng/mL or greater.Values obtained with d ifferent assay methods or kits cannot be usedinterchangeably. Results cannot be interpreted as absolute evidenceof the presence or absence of malignant disease. :37 LIPID PANEL (02804) Comments: PATIENT WAS FASTINGPERFORMED BY: [employer] CenterWqjcjz8681 [facility] [id number] LDL/HDL Ratio 4.8 {ratio_units} (Abnormal) Range: 0.0-3.6 [...] PANEL, COMPREHENSIVE Comments: PATIENT WAS FASTINGPERFORMED BY: [employer].[facility] Psychiatric HospitalZzyqef2751 [facility] [id number] (24334) ALT (SGPT) 19 [iU]/L (Normal) Range: 0-44 [...] Glucose, Serum 94 mg/dL (Normal) Range: 65-99 10-Mcz-802445:43 PPD (77180) Comments: PT RECEIVED THIS AT WORK SKIN TEST INTRADERMAL TB negatvie (Normal) Comments: pt received this at work :33 LIPID PANEL (86679) Comments: PATIENT WAS FASTINGPERFORMED BY: [employer]70 Uriostegui [facility] [id number] LDL/HDL Ratio 3.8 {ratio_units} (Abnormal) Range: 0.0-3.6 [...] METABOLIC PANEL, Comments: PATIENT WAS FASTINGPERFORMED BY: Rockaboxlin6370 [facility] [id number] Information: [id number] COMPREHENSIVE (01961) ALT (SGPT) 21 [iU]/L (Normal) Range: 0-55 [...] CHOL 193 mg/dL (Normal) Comments: <200 mg/dL Ygqjxextw183-433 mg/dL Borderline>240 mg/dL High Risk :27 BMP [...] Indication: Prostate cancer Prostate cancer : Reviewed Airline Stewardess Letter Indication: Prostate cancer Hypertensive heart disease [...] Indication: Mixed hyperlipidemia Prostate cancer : Reviewed Airline Stewardess Letter Indication: Prostate cancer Hypertensive 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 heart failure : HTN/CAD Red Flags Indication: Hypertensive 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 heart failure Mixed hyperlipidemia : Cholesterol mgmt Indication: Mixed hyperlipidemia Mixed hyperlipidemia : Follow up in 6 months Indication: Mixed hyperlipidemia Prostate cancer : Reviewed Airline Stewardess Letter- urologist - dr Miller Indication: Prostate cancer Hypertensive 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 heart failure : HTN/CAD Red Flags Indication: Hypertensive 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 heart failure Mixed hyperlipidemia : Cholesterol mgmt Indication: Mixed hyperlipidemia Hepatocellular carcinoma : Reviewed Lab Indication: Hepatocellular carcinoma Encounter for screening for malignant neoplasm of prostate (Renamed from Screening for prostate cancer) : Reviewed Airline Stewardess Letter Indication: Encounter for screening for malignant [...] without heart failure Prostate cancer : Reviewed Airline Stewardess Letter- Dr Miller Indication: Prostate cancer Mixed hyperlipidemia : Cholesterol mgmt Indication: Mixed hyperlipidemia Hepatocellular carcinoma : Reviewed Lab: nornmal alpha feta prot Indication: Hepatocellular carcinoma Hepatocellular carcinoma : Reviewed Airline Stewardess Letter Indication: Hepatocellular carcinoma Hepatocellular carcinoma : Reviewed Diagnostic Tests Indication: Hepatocellular carcinoma Prostate cancer : Reviewed Lab Indication: Prostate cancer Prostate cancer : Reviewed Airline Stewardess Letter Indication: Prostate cancer Prostate cancer : [...] Leg swelling Depression : follow up with [facility] 10 days Indication: Depression Sinusitis, acute : [...] disease without heart failure Planned Observations TSH (90209)Indication: Mixed hyperlipidemia On: 08-Btb-63636:01 Request URINALYSIS, W/ MICRO (84826)Indication: Hypertensive 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 heart failure On: :01 Request MICROALBUMIN: CREATININE RATIO (22437) AND (07863)Indication: Hypertensive 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 heart failure On: : Request METABOLIC PANEL, COMPREHENSIVE (36214)Indication: Hypertensive 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 heart failure On: : Request CBC W/AUTO DIFF WBC (75246)Indication: Hypertensive 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 heart failure On: : Request LIPOPROTEIN, BLD, BY NMR (79754)Indication: Mixed hyperlipidemia On: : Request CALCIFEDIOL (21395)Indication: Vitamin D deficiency On: : Request LIPID PANEL (57718)Indication: Mixed hyperlipidemia On: :07 Request METABOLIC PANEL, COMPREHENSIVE (47904)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 On: :07 Request CBC W/AUTO DIFF WBC (56321)Indication: Lymphocytosis On: :07 Request LIPID PANEL (40982)Indication: Hypertensive 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 heart failure On: 1-Ngt-040332:39 Request METABOLIC PANEL, COMPREHENSIVE (48011)Indication: Hypertensive 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 heart failure On: 3-Kaz-789173:39 Request METABOLIC PANEL, COMPREHENSIVE (24284)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 On: 8-Xot-477583:08 Request HEPATIC FUNCTION PANEL (16465)Indication: Mixed hyperlipidemia On: 80-Ydn-796729:53 Request LIPID PANEL (00905)Indication: Mixed hyperlipidemia On: 90-Msf-970933:52 Request METABOLIC PANEL, COMPREHENSIVE (31417)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 On: 09-Wtc-776553:09 Request LIPID PANEL (55763)Indication: Mixed hyperlipidemia On: 61-Qss-377980:09 Request METABOLIC PANEL, COMPREHENSIVE (81975)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 On: 87-Vav-198660:55 Request LIPID PANEL (32662)Indication: Mixed hyperlipidemia On: 49-Xpd-428846:54 Request CBC WITH MANUAL DIFF (48479) On: 14-Ebh-949123:57 Request Electrolyte Panel (67841) On: 51-Ubo-355933:57 Request LIPID PANEL (55382)Indication: Mixed hyperlipidemia On: 21-Rwm-934357:03 Request METABOLIC PANEL, COMPREHENSIVE (55025)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 On: 05-Wjz-995553:03 Request CBC WITH MANUAL DIFF (35606)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 On: :03 Request METABOLIC PANEL, COMPREHENSIVE (82312)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 On: 20-Rde-[id number]:05 Request HEPATIC FUNCTION PANEL ([id number])Indication: Mixed hyperlipidemia On: 39-Krt-327354:05 Request Comments: 3 mos LIPID PANEL ([id number])Indication: Mixed hyperlipidemia On: 67-Ljn-[id number]:05 Request Planned Encounters Medical; Hospital Follow Up - On: 28-Jun-2018 12:15 [facility] Swetha Pedersen DO, DO, Kathleen Planned Procedures ELECTROCARDIOGRAM, COMPLETE (ECG) On: 20-Nov-2017 Intent ([id number])By: Robyn Vergara Comments: nsr no acute cgh Flu Vaccine (Quadrivalent) [id number]: On: 22-May-2017 Intent Swetha Pedersen DO, DO, Comments: QUAD flu shotlot number: [id number]: 10/2017L 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 [facility] FOR On: 16-Jan-2017 Intent OBESITY, 15 MINUTES ([id number])By: Swetha Pedersen DO, DO, Kathleen ELECTROCARDIOGRAM, COMPLETE (ECG) On: 21-Nov-2016 Intent ([id number])By: Swetha Pedersen DO Comments: nsr no acute chg Swetha DOUGLAS ADMINISTRATION OF INFLUENZA VIRUS On: 27-Apr-2015 Intent VACCINE ([id number])By: Lisa Potter DO FLU VAC, SPLIT, >3 YEARS, INTRAMUSC On: 27-Apr-2015 Intent ([id number])By: Lisa Potter DO Comments: Lot:[id number]:12/13Dose:0.5mLRoute:IMSite:L DltdGiven By:AMBROSIO signed EKG ([id number])By: Lisa Potter DO On: 13-Oct-2014 Intent Comments: ekg showed normal sinus rhythym, normal axis, no acute st/t wave changes lvh IMMUNIZ ADMNIN, 1 VAC, SNGL/COMBO On: 07-Oct-2013 Intent ([id number])By: Lisa Potter DO Comments: Lot: [id number]: 61Iik29Lpp: 0.5mlRoute: IMSite: L detoidGiven by: ALYSSA Sotelo PNEUM VAC ADLT/IMUMNOSPR, SBC/INTRM On: 07-Oct-2013 Intent ([id number])By: Lisa Potter DO EKG ([id number])By: Lisa Potter DO On: 07-Oct-2013 Intent Comments: ekg- sinus with left axis and lvh no change compared to prvious FLU VAC, SPLIT, >3 YEARS, INTRAMUSC On: 10-Oct-2011 Intent ([id number])By: Mila Osullivan Comments: received 04/2011 TDAP VACCINE >7 IM ([id number])By: Shi, On: 10-Oct-2011 Intent Mila Comments: declines Eprescribed prescriptions ([id number])By: On: 01-Apr-2011 Intent Lisa Potter DO EKG ([id number])By: Mila Osullivan On: 12-Oct-2009 Intent EKG ([id number])By: Lisa Potter DO On: 25-Sep-2006 Intent Comments: [...] Advance Directives Name Dates Details Immunization Registry [place] - Effective on Effective: 22-May-201705/22/2017. Expiration date unspecified Encounters Phone Encounter On: 19-Jun-2018 15:18 Encounter Reason: [...] patient does not have durable power of state attorney or living will. The patient has [...] patient does not have durable power of state attorney or living will. The patient has [...] and bp is good - he saw [place] and still has right inguinal hernia- - [...] saw carolyn they plan at sometime in [facility] to get the inguinal hernia [...] size - has appt in apr with GastroenterologistAdamounter Diagnosis: Hypertension with LVH (402.90), Hepatocellular carcinoma, [...] polyp and wasnt cancernous - he saw staff certified nurse midwife at [facility] 12/12- Rodolfo Zavala - he ordered more labs- he didnt do chol labs for me though-- felt overwhelmed and reasonably sohis afp marker incrasing - has mass liver concerning for hepatocellular carcinoma - he saw radiologist last - his apolinar and antismooth muscle ab positive hep c neg hepb a b elevated- he has procedure set up with Dr Yadav in [place]- he was told 2 treatment options for [...] [facility] - no gallbladder symptoms and no [...] better- 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
--- OUTSIDE RECORDS SUMMARY | 2018-08-26 09:53 | XMS RPT_ITS | Continuity of Care Document ---
:1945 Author Organization [facility] Address [address] [place] [address] Phone Care Team Providers Name Role Phone [...] in size with no enhancem ent to [facility] recurrent disease,Diagnosed in 2015: 2 procedure [...] days Quantity: 20 {Tablet} Refills: 0 Ordered:11-Feb-2014 iTa Dixon LPN Start : 16-Jan-2014 End : [...] 16-Aug-2016 End : 15-Sep-2016 Inactive Vitamin D3 94059 UNIT Oral Capsule 1 (one) Capsule Capsule [...] Department Summary Result: Comments: See Note; NOTES: [facility] Medical Records Department [address] [place] [address] Emergency Department Summary 05/11/18 1307 MR#: [id number] Acct: [id number] Name: LUCAS EAST Rep #: [id number] : 1945 73 From: Cristina Lyles MD PCP: Swetha Pedersen DO Status: REG ER - ER Visit Summary Date of Service: 05/11/18 Chief Complaint: Wound check Histo ry of Present Illness: The patient is a 73 M presenting for wound check. Patient had surgery at [facility] on April 25 for a strangulated hernia. This was complicated by sepsis. He was in [facility] for 12 days. He was [...] acquired pneumonia. Discussed with Dr. Meeks at [facility]. He is in agreement that the patient can stay at [facility] as the patient wishes. Discussed with Dr. Hyde and patient will be admitted. Disposition: Admission Impression: Healthcare acquired pneumonia This note was generated with Storytree dictation software. It may contain incorrect words, [...] problems, contact your Primary Care Provider. Call [employer] [facility] ([phone]) or report to the closest Emergency Room. Call 911 if necessary. 05/11/18 1601 <Electronically signed by Shayne Lyles MD> Date Cristina Lyles MD Cosigner Signature (If Indicated): Date CC: Swetha Pedersen DO 11-May-2018 Acute Abdomen Inc Chest Result: Comments: See Note; NOTES: [facility] Imaging Services [address] [place] [address] Acute Abdomen Inc Chest MR#: [id number] Acct: [id number] Name: LUCAS EAST Rep #: [id number] : 1945 73 From: Benton Toledo MD PCP: Swetha Pedersen DO Status: REG ER Study: Acute Abdomen Inc Chest Date of Exam: 05/11/18 Exam# [id number] Ordering Dr: Cristina Lyles MD JONATAN DY: [...] CC: Cristina Lyles MD; Swetha Pedersen DO [employer]: Signed 21-Apr-2018 Emergency Department Summary Result: Comments: See Note; NOTES: [facility] Medical Records Department [address] [address] Emergency Department Summary 04/21/18 0057 MR#: [id number] Acct: [id number] Name: LUCAS EAST Rep #: [id number] : 1945 73 From: Bobby Walton MD [...] not having vomiting. Will be transferred to [facility] as our ope rating room is down for cleaning. Discussed with our surgeon on-call Dr. Amezcua and also Dr. Cohen at [facility]. He will be transferred. Given morphine IV fluids and Zofran with good relief of sy mptoms Treatment Plan: [] Disposition: [] Impression: [] Incarcerated right inguinal hernia Small bowel obstruction secondary to incarcerated inguinal hernia Acute renal insufficiency Critical CARE time: 30-74 minutes This note was generated with Storytree dictation software. It may contain incorrect words, spelling, and punctuation that were not noted in review of the chart prior to signing ED Disposition - Plan for ED Patient: Chief Complaint: Abd Pain Referrals: Swetha Pederesn DO [Primary Care Provider] - What to do if you have Problems For any increased pain, shortness of breath, bl eeding, nausea or vomiting, chest pain, or any unexpected problems, contact your Primary Care Provider. Call [facility] ([phone]) or report to the closest Emergency Room. Call 911 if necessar y. 04/21/18 0214 <Electronically signed by Bobby Walton MD> Date Bobby Walton MD Cosigner Signature (If Indicated): Date __ CC: Swetha Pedersen DO 20-Apr-2018 Abdomen/Pelvis without Cont Result: Comments: See Note; NOTES: [facility] Imaging Services [address] [place] [place] [address] Abdomen/Pelvis without Cont MR#: [id number] Acct: [id number] Name: LUCAS EAST Rep # : [id number] : 1945 M 73 From: Laverne Ladd MD PCP: Swetha Pedersen DO Status: REG ER Study: Abdomen/Pelvis without Cont Date of Exam: 04/20/18 Exam# [id number] Ordering Dr: Bobby Walton STUDY: CT ABDOMEN [...] CC: Swetha Pedersen DO; Bobby Walton MD [employer]: Signed 10-Nov-2014 Abdomen/Pelvis W/WO Contrast Result: Comments: See Note; NOTES: [facility] Imaging Services [address] [place] [address] CAT Scan Report MR#: [id number] Acct: [id number] Name: LUCAS EAST Rep #: [id number] : 1945 M 69 From: Salvatore Gomes DO PCP: Lisa Potter DO Status: REG CLI Study: Abdomen/Pelvis W/WO Contrast Date of Exam: 11/10/14 Exam# [id number] Ordering Dr: Josef Patton MD [facility] DY: CT ABDOMEN AND [...] Gomes DO 11/10 at 13:34 EDT Tel [phone], Service support [phone], CC: Lisa Potter DO; Josef Patton [employer]: Signed Immunization Name Dates Details Influenza vaccine, [...] smoker Vital Signs Date Test Result Details 95-Acq-304511:02 Comments: 12/2017 last eye exam was tested [...] Height 0 in Head Circumference 0.00 cm 32-Aqo-324368:00 Temperature 98.1 f Comments: Method: Oral Pulse [...] 0.00 cm Results Date Description Value Details 84-Vcd-548722:33 Basic Metabolic Profile (BMP) Comments: Send Results To: Swetha Hudson for Laboratory [facility] [address] [place], [address] GAP 11 (Normal) Range: 5-15 CO2 28.0 [...] Comments: Please note revised GLUCOSE reference range nyjnfomsb65/02/2018. 99-Leo-851830:29 Urinalysis, Complete Comments: Order Date: 05/11/18How was Urine Obtained? CLEAN [facility] [address]jj[address] [facility]. [place], [place], [address] MUCUS, URINE 2+ {/hpf} (Normal) BACTERIA 1+ [...] (Normal) CLARITY Clear (Normal) COLOR Yellow (Normal) 88-Dzv-720642:19 Basic Metabolic Profile (BMP) Comments: [facility] [address]mvwokljii[address] [facility]. [place], [place], [address] GAP 7 (Normal) Range: 5-15 CO2 25.0 [...] A.D.A. criteria.Please note revised GLUCOSE reference range mikhtiwzg31/02/2018. 32-Ayk-721692:19 CBC W/Diff, Automated Comments: [facility] [address] [facility] [address] [place], [place], [address] Absolute Lymph 1.73 {X10_3/ul} (Normal) Range: 0.83-4.51 [...] 4.6-6.2 WBC 7.5 K/mm3 (Normal) Range: 4.4-11.0 12-Xex-472286:10 Basic Metabolic Profile (BMP) Comments: [facility] [address] [place], [address] GAP 12 (Normal) Range: 5-15 CO2 22.0 [...] A.D.A. criteria.Please note revised GLUCOSE reference range fdpjgksyg97/02/2018. 06-Ieo-256152:10 CBC W/Diff, Automated Comments: [facility] [address] [place], [address] Absolute Lymph 2.70 {X10_3/ul} (Normal) Range: 0.83-4.51 [...] Range: 4.4-11.0 :10 Partial Thromboplast Time Comments: [facility] [address] [place], [address] PTT 39.8 s (Abnormal) Range: 24.1-36.2 :10 Prothrombin Time w/INR Comments: [facility] [address] [place], [place], [address] INR 1.3 (Normal) PROTIME 16.3 s (Abnormal) Range: 11.7-14.9 :21 Microscopic Examination Comments: PATIENT WAS FASTINGPERFORMED BY: [facility] [facility] [id number] Bacteria Few (Normal) Mucus Threads Present (Normal) Cast Type Hyaline casts (Normal) Casts Present {/lpf} (Abnormal) Epithelial Cells (non renal) 0-10 {/hpf} (Normal) Range: 0 - 10 RBC 0-2 {/hpf} (Normal) Range: 0 - 2 WBC 0-5 {/hpf} (Normal) Range: 0 - 5 :49 PSA,Total- Diagnostic Comments: [facility] [address] [place], [place], [address] PSA, DIAGNOSTIC 4.43 ng/mL (Abnormal) Range: 0.0-4.0 Comments: This test was performed using the TPSA assay method for [employer] chemistry system. Values obtained with differentassay methods cannot be used interchangably.When changing PSA assays in the course of monitoring apatient, additional sequential testing should be carriedout to confirm baseline values. 40-Rgn-158258:50 HgA1C , Office (18283) HgA1C , Office 5.7 % (Normal) Range: 4.6 - 7.1 :21 CALCIFEDIOL (70307) Comments: PATIENT WAS FASTINGPERFORMED BY: [facility] [facility] [id number] Vitamin D, 25-Hydroxy 49.2 ng/mL (Normal) Range: 30.0-100.0 Comments: Vitamin D deficiency has been defined by the [place] of[place]icine and an Endocrine Society practice guideline as alevel of serum 25-OH vitamin D less than 20 ng/mL (1,2).The Endocrine Society went on to further define vitamin Dinsufficiency as a level between 21 and 29 ng/mL (2).1. IOM ([place] of Medicine). 2010. Dietary reference intakes for calcium and D. [place]: The National Academies Press.2. Reuben MF, Stephanie CLARK, Radha MILLIGAN, et al. Evaluation, treatment, and prevention of vitamin D deficiency: an Endocrine Society clinical practice guideline. JCEM. 2010; 96(7):1911-30. :21 TSH (33467) Comments: PATIENT WAS FASTINGPERFORMED BY: [employer] Xbwidn6941 [facility] [place] [id number] TSH 2.900 {uIU/mL} (Normal) Range: 0.450-4.500 :21 URINALYSIS, W/ MICRO (95556) Comments: PATIENT WAS FASTINGPERFORMED BY: [employer] Canva [facility] [id number] Microscopic Examination See below: (Normal) Comments: Microscopic was indicated and was performed. Microscopic Examination MICRON (Normal) Comments: Microscopic follows if indicated. Nitrite, Urine Negative (Normal) Urobilinogen,Semi-Qn 0.2 mg/dL (Normal) Range: 0.2-1.0 Bilirubin Negative (Normal) Occult Blood Negative (Normal) Ketones Negative (Normal) Glucose Negative (Normal) Protein Negative (Normal) WBC Esterase Negative (Normal) Appearance Clear (Normal) Urine-Color Yellow (Normal) pH 5.0 (Normal) Range: 5.0-7.5 Specific Buchanan 1.016 (Normal) Range: 1.005-1.030 :21 MICROALBUMIN: CREATININE RATIO Comments: PATIENT WAS FASTINGPERFORMED BY: [employer] Canva [address] Formerly [facility] Hospitalnodishes.co.ukCone Health [facility] [id number] ([address]) AND (60348) Alb/Creat Ratio <3.8 {mg/g_creat} (Normal) Range: 0.0-30.0 Albumin, Urine <3.0 ug/mL (Normal) Creatinine, Urine 79.5 mg/dL (Normal) :21 METABOLIC PANEL, COMPREHENSIVE Comments: PATIENT WAS FASTINGPERFORMED BY: [employer] Uyhxdi8474 [facility] [id number] (92748) ALT (SGPT) 16 [iU]/L (Normal) Range: 0-44 [...] 8-27 Glucose 94 mg/dL (Normal) Range: 65-99 59-Ysa-43081:21 CBC W/AUTO DIFF WBC (81741) Comments: PATIENT WAS FASTINGPERFORMED BY: LabCoSt. Mary's HospitalBhojel1249 [facility] [id number] Immature Grans (Abs) 0.0 {x10E3/uL} (Normal) Range: [...] {x10E3/uL} (Normal) Range: 3.4-10.8 :21 LIPID PANEL (37131) Comments: PATIENT WAS FASTINGPERFORMED BY: [employer]de[employer] Software TechnologiesCone Health Annie [facility] Hospital [id number] LDL/HDL Ratio 3.0 {ratio} (Normal) Range: 0.0-3.6 [...] Microscopic Examination Comments: PATIENT WAS FASTINGPERFORMED BY: [facility] Software TechnologiesC[facility] Health [facility] Hospital [id number] Bacteria None seen (Normal) Mucus Threads Present (Normal) Epithelial Cells (non renal) 0-10 {/hpf} (Normal) Range: 0 - 10 RBC 0-2 {/hpf} (Normal) Range: 0 - 2 WBC 0-5 {/hpf} (Normal) Range: 0 - 5 7-Nov-52668:12 PSA,Total- Diagnostic Comments: [facility] [address] [place], [address] PSA, DIAGNOSTIC 4.20 ng/mL (Abnormal) Range: 0.0-4.0 Comments: This test was performed using the TPSA assay method for the[employer] chemistry system. Values obtained with differentassay methods cannot be used interchangably.When changing PSA assays in the course of monitoring apatient, additional sequential testing should be carriedout to confirm baseline values. :49 TSH (24088) Comments: PATIENT WAS FASTINGPERFORMED BY: [facility] Ebissp4912 Uriostegui RoadDublin [place] [id number] TSH 3.530 {uIU/mL} (Normal) Range: 0.450-4.500 :49 CALCIFEDIOL (99649) Comments: PATIENT WAS FASTINGPERFORMED BY: CB [facility] Incxee5543 Uriostegui RoadDublin [place] [id number] Vitamin D, 25-Hydroxy 28.4 ng/mL (Abnormal) Range: 30.0-100.0 Comments: Vitamin D deficiency has been defined by the [place] of[place]icine and an Endocrine Society practice guideline as alevel of serum 25-OH vitamin D less than 20 ng/mL (1,2).The Endocrine Society went on to further define vitamin Dinsufficiency as a level between 21 and 29 ng/mL (2).1. IOM ([place] of Medicine). 2010. Dietary reference intakes for calcium and D. [place]: The National Academies Press.2. Reuben MF, Stephanie CLARK, Radha MILLIGAN, et al. Evaluation, treatment, and prevention of vitamin D deficiency: an Endocrine Society clinical practice guideline. JCEM. 2010; 96(7):1911-30. :49 URINALYSIS, W/ MICRO (39344) Comments: PATIENT WAS FASTINGPERFORMED BY: CB [facility] Rqfikt5977 Uriostegui RoadDublin [place] [id number] Microscopic Examination See below: (Normal) Comments: Microscopic was indicated and was performed. Microscopic Examination MICRON (Normal) Comments: Microscopic follows if indicated. Nitrite, Urine Negative (Normal) Urobilinogen,Semi-Qn 0.2 mg/dL (Normal) Range: 0.2-1.0 Bilirubin Negative (Normal) Occult Blood Negative (Normal) Ketones Negative (Normal) Glucose Negative (Normal) Protein Negative (Normal) WBC Esterase Negative (Normal) Appearance Clear (Normal) Urine-Color Yellow (Normal) pH 5.5 (Normal) Range: 5.0-7.5 Specific Buchanan 1.018 (Normal) Range: 1.005-1.030 :49 MICROALBUMIN: CREATININE RATIO Comments: PATIENT WAS FASTINGPERFORMED BY: Comparabien.comSt. Mary's HospitalWqpvjl9649 [facility] [id number] (71102) AND (15164) Alb/Creat Ratio <3.0 {mg/g_creat} (Normal) Range: 0.0-30.0 Albumin, Urine <3.0 ug/mL (Normal) Creatinine, Urine 101.1 mg/dL (Normal) :49 METABOLIC PANEL, COMPREHENSIVE Comments: PATIENT WAS FASTINGPERFORMED BY: Comparabien.comSt. Mary's HospitalWjkdjt8753 [facility] [id number] (41419) ALT (SGPT) 17 [iU]/L (Normal) Range: 0-44 [...] 8-27 Glucose 100 mg/dL (Abnormal) Range: 65-99 11-Iju-31227:49 CBC W/AUTO DIFF WBC (75356) Comments: PATIENT WAS FASTINGPERFORMED BY: LabCoSt. Mary's HospitalSqtkil1991 [facility] [id number] Immature Grans (Abs) 0.0 {x10E3/uL} (Normal) Range: [...] {x10E3/uL} (Normal) Range: 3.4-10.8 :49 LIPID PANEL (16584) Comments: PATIENT WAS FASTINGPERFORMED BY: Power EfficiencySt. Mary's HospitalUfyhst6985 [facility] [id number] LDL/HDL Ratio 4.3 {ratio} (Abnormal) Range: 0.0-3.6 Comments: LDL/HDL Ratio Men Women 1/2 Avg.Risk 1.0 1.5 Av g.Risk 3.6 3.2 2X Avg.Risk 6.2 5.0 3X Avg.Risk 8.0 6.1 LDL Cholesterol Calc 149 mg/dL (Abnormal) Range: 0-99 VLDL Cholesterol Elvin 36 mg/dL (Normal) Range: 5-40 HDL Cholesterol 35 mg/dL (Abnormal) Triglycerides 181 mg/dL (Abnormal) Range: 0-149 Cholesterol, Total 220 mg/dL (Abnormal) Range: 100-199 04-Wei-133433:47 Microscopic Examination Comments: PATIENT WAS FASTINGPERFORMED BY: [facility] Okitoc0332 [facility] [id number] Bacteria Few (Normal) Mucus Threads Present (Normal) Epithelial Cells (non renal) 0-10 {/hpf} (Normal) Range: 0 - 10 RBC 0-2 {/hpf} (Normal) Range: 0 - 2 WBC 0-5 {/hpf} (Normal) Range: 0 - 5 :53 AFP, Tumor Marker Comments: FAX AFP RESULTS TO [phone] Patient ? NComments: ALPHA FETOPROTIEN,SERUM RTLabCorp (refer to report for specific site)refer to report for address and phone number AFP TUMOR 2253 3.1 ng/mL (Normal) Range: 0.0-8.3 Comments: Melodie ECLIA methodology :53 Basic Metabolic Profile (BMP) Comments: Comments: ALPHA FETOPROTIEN,SERUM [facility] [address] [place], [place], [address] GAP 5 (Normal) Range: 5-15 CO2 29.0 [...] Profile Comments: Comments: ALPHA FETOPROTIEN,SERUM [facility] [address]plsjl[address] [place], [place], [address] D BILI 0.24 mg/dL (Normal) Range: 0.00-0.30 T BILI 1.10 mg/dL (Abnormal) Range: 0.20-1.00 ALT 30 U/L (Normal) Range: 12-78 ALK P 85 U/L (Normal) Range: 45-117 AST 17 U/L (Normal) Range: 15-37 GLOB 3.5 g/dL (Normal) Range: 2.3-3.5 ALB 3.9 g/dL (Normal) Range: 3.4-5.0 T PROT 7.4 g/dL (Normal) Range: 6.4-8.2 :53 Phosphorus Comments: Comments: ALPHA FETOPROTIEN,SERUM [facility] [address] [place], [place], [address] PHOS 2.6 mg/dL (Normal) Range: 2.5-4.9 :53 Prothrombin Time w/INR Comments: [facility] [address]lg[address] [place], [place], [address] INR 1.1 (Normal) PROTIME 13.7 s (Normal) Range: 11.7-14.9 :47 TSH (01955) Comments: PATIENT WAS FASTINGPERFORMED BY: [facility]MotoHutzel [facility] Hospital6370 [facility] [id number] TSH 1.580 {uIU/mL} (Normal) Range: 0.450-4.500 :47 URINALYSIS, W/ MICRO (26016) Comments: PATIENT WAS FASTINGPERFORMED BY: [facility]MotoHutzel [facility] Hospital6370 [facility] [id number] Microscopic Examination See below: (Normal) Comments: Microscopic was indicated and was performed. Microscopic Examination MICRON (Normal) Comments: Microscopic follows if indicated. Nitrite, Urine Negative (Normal) Urobilinogen,Semi-Qn 0.2 mg/dL (Normal) Range: 0.2-1.0 Bilirubin Negative (Normal) Occult Blood Negative (Normal) Ketones Negative (Normal) Glucose Negative (Normal) Protein Negative (Normal) WBC Esterase Negative (Normal) Appearance Clear (Normal) Urine-Color Yellow (Normal) pH 5.5 (Normal) Range: 5.0-7.5 Specific Buchanan 1.026 (Normal) Range: 1.005-1.030 :47 MICROALBUMIN: CREATININE RATIO Comments: PATIENT WAS FASTINGPERFORMED BY: Power EfficiencyAdvanced Care Hospital of Southern New MexicoWjycdn2395 [facility] [id number] (53714) AND (66206) Microalb/Creat Ratio 3.1 {mg/g_creat} (Normal) Range: 0.0-30.0 Microalbumin, Urine 5.4 ug/mL (Normal) Creatinine, Urine 172.4 mg/dL (Normal) :47 METABOLIC PANEL, COMPREHENSIVE Comments: PATIENT WAS FASTINGPERFORMED BY: [facility]MotoH[facility]zel [facility] Hospital6370 [facility] [id number] (28558) ALT (SGPT) 19 [iU]/L (Normal) Range: 0-44 [...] Glucose, Serum 99 mg/dL (Normal) Range: 65-99 83-Gvt-762629:47 CBC W/AUTO DIFF WBC (55523) Comments: PATIENT WAS FASTINGPERFORMED BY: LabCoSt. Mary's HospitalLirrqu2757 [facility] [id number] Immature Grans (Abs) 0.0 {x10E3/uL} (Normal) Range: [...] {x10E3/uL} (Normal) Range: 3.4-10.8 :47 LIPID PANEL (86347) Comments: PATIENT WAS FASTINGPERFORMED BY: LabCoSt. Mary's HospitalQhjodn9142 [facility] [id number]; will review on 05/22 LDL/HDL Ratio 3.6 [...] Cholesterol, Total 184 mg/dL (Normal) Range: 100-199 2-Heg-990549:09 PSA,Total- Diagnostic Comments: [facility] [address] [place], [place], [address] PSA, DIAGNOSTIC 6.85 ng/mL (Abnormal) Range: 0.0-4.0 Comments: This test was performed using the TPSA assay method for the[employer]Casa chemistry system. Values obtained with differentassay methods [...] 0.0-8.3 Comments: Melodie ECLIA methodologyPerformed at: - LabCo[address] [id number] Director: Josef Ventura PhD, Phone: [phone] 5-Hhi-794334:53 Basic Metabolic Profile (BMP) Comments: Comments: [facility] [address] [place], [address] GAP 8 (Normal) Range: 5-15 [...] Range: 70-110 :53 Liver Profile Comments: Comments: [facility] [address] [place], [address] D BILI 0.23 mg/dL (Normal) Range: 0.00-0.30 T BILI 1.00 mg/dL (Normal) Range: 0.20-1.00 ALT 26 U/L (Normal) Range: 12-78 ALK P 98 U/L (Normal) Range: 45-117 AST 19 U/L (Normal) Range: 15-37 GLOB 3.8 g/dL (Abnormal) Range: 2.3-3.5 ALB 3.9 g/dL (Normal) Range: 3.4-5.0 T PROT 7.7 g/dL (Normal) Range: 6.4-8.2 :53 Phosphorus Comments: Comments: [facility] [address]cjee[address] [place], [place], [address] PHOS 2.3 mg/dL (Abnormal) Range: 2.5-4.9 :53 Prothrombin Time w/INR Comments: [facility] [address] [place], [place], [address] INR 1.1 (Normal) PROTIME 13.4 s (Normal) Range: 11.7-14.9 76-Wec-532043:24 MICROALBUMIN: CREATININE RATIO Comments: PATIENT WAS FASTINGPERFORMED BY: [employer]6370 [facility] [id number] (95056) AND (09117) Microalb/Creat Ratio 5.7 {mg/g_creat} (Normal) Range: 0.0-30.0 Microalbumin, Urine 9.7 ug/mL (Normal) Creatinine, Urine 169.8 mg/dL (Normal) 30-Ezt-333817:24 VITAMIN B12 AND FOLATES Comments: PATIENT WAS FASTINGPERFORMED BY: [employer]6370 [facility] [id number] (19188) Folate (Folic Acid), Serum >20.0 ng/mL (Normal) Comments: A serum folate concentration of less than 3.1 ng/mL isconsidered to represent clinical deficiency. Vitamin B12 323 pg/mL (Normal) Range: 211-946 37-Lop-875004:24 CALCIFEDIOL (98993) Comments: PATIENT WAS FASTINGPERFORMED BY: [employer]6370 [facility] [id number] Vitamin D, 25-Hydroxy 33.2 ng/mL (Normal) Range: 30.0-100.0 Comments: Vitamin D deficiency has been defined by the [place] of[place]icine and an Endocrine Society practice guideline as alevel of serum 25-OH vitamin D less than 20 ng/mL (1,2).The Endocrine Society went on to further define vitamin Dinsufficiency as a level between 21 and 29 ng/mL (2).1. IOM ([place] of [place]). 2010. Dietary reference intakes for calcium and D. [place]: The National Academies Press.2. Reuben MF, Stephanie NC, Radha MILLIGAN, et al. Evaluation, treatment, and prevention of vitamin D deficiency: an Endocrine Society clinical practice guideline. JCEM. 2010; 96(7):1911-30. 42-Sgi-024363:24 TSH (THYROID STIMULATING Comments: PATIENT WAS FASTINGPERFORMED BY: [employer] [place] [id number] HORMONE) (90490) TSH 2.410 {uIU/mL} (Normal) Range: 0.450-4.500 :24 LIPID PANEL (78943) Comments: PATIENT WAS FASTINGPERFORMED BY: Endeavour Software TechnologiesCone Health Annie [facility] Hospital [id number] LDL/HDL Ratio 3.7 {ratio_units} (Abnormal) Range: 0.0-3.6 [...] PANEL, COMPREHENSIVE Comments: PATIENT WAS FASTINGPERFORMED BY: Endeavour Software TechnologiesC[facility] Health [facility] Hospital [id number] (45902) ALT (SGPT) 30 [iU]/L (Normal) Range: 0-44 [...] Glucose, Serum 99 mg/dL (Normal) Range: 65-99 01-Nfu-470974:24 CBC, PLATELETS & AUT DIFF Comments: PATIENT WAS FASTINGPERFORMED BY: [facility] Lgotap8997 [facility] [id number]; fu 4-24 KF (40063) Immature Grans (Abs) 0.0 {x10E3/uL} (Normal) Range: [...] 2253 2.6 ng/mL (Normal) Range: 0.0-8.3 Comments: [employer] ECLIA methodologyPerformed at: [facility] [address] [id number] Director: Josef Ventura PhD, Phone: [phone] 05-Uuf-85126:30 Bilirubin, Direct Comments: [facility] Uojfkjioky1885 [facility]. [place], [place], [address] D BILI 0.29 mg/dL (Normal) Range: 0.00-0.30 23-Pwm-39330:30 Comprehensive Metabolic Profil Comments: [facility] Iquuxsevwy5607 [facility]. [place], [place], [address] GAP 8 (Normal) Range: 5-15 CO2 26.0 [...] mg/dL (Normal) Range: 70-110 :30 Phosphorus Comments: [facility] [address] [facility] [place], [address] PHOS 2.4 mg/dL (Abnormal) Range: 2.5-4.9 :30 Prothrombin Time w/INR Comments: [facility] [address] [place], [address] INR 1.1 (Normal) PROTIME 13.4 s (Normal) Range: 11.7-14.9 :35 CALCIFEDIOL (72808) Comments: PATIENT WAS FASTINGPERFORMED BY: LabCoSt. Mary's HospitalCsgtnl4055 [facility] [id number] Vitamin D, 25-Hydroxy 45.6 ng/mL (Normal) Range: 30.0-100.0 Comments: Vitamin D deficiency has been defined by the [place] of[place]icine and an Endocrine Society practice guideline as alevel of serum 25-OH vitamin D less than 20 ng/mL (1,2).The Endocrine Society went on to further define vitamin Dinsufficiency as a level between 21 and 29 ng/mL (2).1. IOM ([place] of Medicine). 2010. Dietary reference intakes for calcium and D. [place]: The National Academies Press.2. Reuben MF, Stephanie CLARK, Radha MILLIGAN, et al. Evaluation, treatment, and prevention of vitamin D deficiency: an Endocrine Society clinical practice guideline. JCEM. 2010; 96(7):1911-30. :35 METABOLIC PANEL, COMPREHENSIVE Comments: PATIENT WAS FASTINGPERFORMED BY: LabCoSt. Mary's HospitalUizgnb1093 [facility] [id number] (89604) ALT (SGPT) 18 [iU]/L (Normal) Range: 0-44 [...] mg/dL (Abnormal) Range: 65-99 :35 LIPID PANEL (35482) Comments: PATIENT WAS FASTINGPERFORMED BY: LabCoSt. Mary's HospitalHtumdm5151 [facility] [id number] LDL/HDL Ratio 4.4 {ratio_units} (Abnormal) Range: 0.0-3.6 Comments: LDL/HDL Ratio Men Women 1/2 Avg.Risk 1.0 1.5 Av g.Risk 3.6 3.2 2X Avg.Risk 6.2 5.0 3X Avg.Risk 8.0 6.1 LDL Cholesterol Calc 151 mg/dL (Abnormal) Range: 0-99 VLDL Cholesterol Elvin 33 mg/dL (Normal) Range: 5-40 HDL Cholesterol 34 mg/dL (Abnormal) Triglycerides 165 mg/dL (Abnormal) Range: 0-149 Cholesterol, Total 218 mg/dL (Abnormal) Range: 100-199 54-Qzp-827592:13 PSA,Total- Diagnostic Comments: [facility] [address] [place], [place], [address] PSA, DIAGNOSTIC 6.86 ng/mL (Abnormal) Range: 0.0-4.0 Comments: This test was performed using the TPSA assay method for theCare2[employer] chemistry system. Values obtained with differentassay methods cannot be used interchangably.When changing PSA assays in the course of monitoring apatient, additional sequential testing should be carriedout to confirm baseline values. 06-Fqx-164899:29 HgA1C , Office (00572) HgA1C , Office 5.6 % (Normal) Range: 4.6 - 7.1 :19 AFP, Tumor Marker Comments: Is Patient ? [facility] (refer to report for specific site)refer to report for address and phone number AFP TUMOR 2253 3.8 ng/mL (Normal) Range: 0.0-8.3 Comments: Melodie ECLIA methodologyPerformed at: - [facility] [id number] Director: Josef Ventura PhD, Phone: [phone] :19 Basic Metabolic Profile (BMP) Comments: [facility] [address] [place], [place], [id number] GAP 6 (Normal) Range: 5-15 CO2 27.0 [...] 7-18 GLU 92 mg/dL (Normal) Range: 70-110 91-Cnx-17757:19 CBC W/Diff, Automated Comments: [facility] [address] [place], [place], [address] Absolute Lymph 2.14 {X10_3/ul} (Normal) Range: 0.83-4.51 [...] (Normal) Range: 4.4-11.0 :19 Liver Profile Comments: [facility] [address] [place], [address] D BILI 0.21 mg/dL (Normal) Range: 0.00-0.30 T BILI 1.50 mg/dL (Abnormal) Range: 0.20-1.00 ALT 23 U/L (Normal) Range: 12-78 ALK P 89 U/L (Normal) Range: 50-136 AST 15 U/L (Normal) Range: 15-37 GLOB 3.6 g/dL (Abnormal) Range: 2.3-3.5 ALB 3.7 g/dL (Normal) Range: 3.4-5.0 T PROT 7.3 g/dL (Normal) Range: 6.4-8.2 :19 Phosphorus Comments: [facility] [address] [place], [address] PHOS 2.5 mg/dL (Normal) Range: 2.5-4.9 :19 Prothrombin Time w/INR Comments: [facility] [address] [place], [address] INR 1.1 (Normal) PROTIME 13.6 s (Normal) Range: 11.7-14.9 53-Sug-173006:21 VITAMIN B12 AND FOLATES Comments: PATIENT WAS FASTINGPERFORMED BY: LabCoSt. Mary's HospitalFdijgb4525 [facility] [id number] (20323) Folate (Folic Acid), Serum >20.0 ng/mL (Normal) Comments: A serum folate concentration of less than 3.1 ng/mL isconsidered to represent clinical deficiency. Vitamin B12 358 pg/mL (Normal) Range: 211-946 20-Gpk-242059:21 CALCIFEDIOL (22732) Comments: PATIENT WAS FASTINGPERFORMED BY: Wisembly70 [facility] [id number] Vitamin D, 25-Hydroxy 18.2 ng/mL (Abnormal) Range: 30.0-100.0 Comments: Vitamin D deficiency has been defined by the [place] of[place] and an Endocrine Society practice guideline as alevel of serum 25-OH vitamin D less than 20 ng/mL (1,2).The Endocrine Society went on to further define vitamin Dinsufficiency as a level between 21 and 29 ng/mL (2).1. IOM ([place] of [employer]). 2010. Dietary reference intakes for calcium and D. [place]: The National Academies Press.2. Reuben MF, Stephanie CLARK, Radha MILLIGAN, et al. Evaluation, treatment, and prevention of vitamin D deficiency: an Endocrine Society clinical practice guideline. JCEM. 2010; 96(7):1911-30. :21 LIPID PANEL (34540) Comments: PATIENT WAS FASTINGPERFORMED BY: [employer]6370 [facility] [id number] VLDL Cholesterol Elvin VLDLCH mg/dL (Normal) Range: [...] PANEL, COMPREHENSIVE Comments: PATIENT WAS FASTINGPERFORMED BY: [employer]6370 [address] [facility] [id number] (88397) ALT (SGPT) 17 [iU]/L (Normal) Range: 0-44 [...] Glucose, Serum 102 mg/dL (Abnormal) Range: 65-99 87-Oiw-064014:21 CBC, PLATELETS & AUT DIFF Comments: PATIENT WAS FASTINGPERFORMED BY: [facility] Omaqfy3844 [facility] [id number] ([id number]) Immature Grans (Abs) 0.0 {x10E3/uL} (Normal) Range: [...] Microscopic Examination Comments: PATIENT WAS FASTINGPERFORMED BY: LabCoSt. Mary's HospitalZxorje6603 [facility] [id number] Bacteria None seen (Normal) Mucus Threads Present (Normal) Epithelial Cells (non renal) 0-10 {/hpf} (Normal) Range: 0 - 10 RBC 0-2 {/hpf} (Normal) Range: 0 - 2 WBC 0-5 {/hpf} (Normal) Range: 0 - 5 :22 Basic Metabolic Profile (BMP) Comments: PLEASE ADD LIVER TO BLOOD FROM THIS MORNINGOhio[facility] [address] [place], [place], [address] GAP 6 (Normal) Range: 5-15 CO2 28.0 [...] Range: 70-110 :22 CBC W/Diff, Automated Comments: [facility] [address] [place], [place], [address] Absolute Lymph 2.03 {X10_3/ul} (Normal) Range: 0.83-4.51 [...] PLEASE ADD LIVER TO BLOOD FROM THIS [facility] [address] [place], [place], [address] D BILI 0.23 mg/dL (Normal) Range: 0.00-0.30 T BILI 1.60 mg/dL (Abnormal) Range: 0.20-1.00 ALT 27 U/L (Normal) Range: 12-78 ALK P 95 U/L (Normal) Range: 50-136 AST 17 U/L (Normal) Range: 15-37 GLOB 3.6 g/dL (Abnormal) Range: 2.3-3.5 ALB 3.9 g/dL (Normal) Range: 3.4-5.0 T PROT 7.5 g/dL (Normal) Range: 6.4-8.2 :22 Phosphorus Comments: PLEASE ADD LIVER TO BLOOD FROM THIS [facility] [address] [place], [place], [address] PHOS 2.5 mg/dL (Normal) Range: 2.5-4.9 :22 Prothrombin Time w/INR Comments: [facility] [address] [place], [place], [id number] INR 1.1 (Normal) PROTIME 13.6 s (Normal) Range: 11.7-14.9 :49 URINALYSIS, W/ MICRO (04802) Comments: PATIENT WAS FASTINGPERFORMED BY: LabCoSt. Mary's HospitalEezijw2232 [facility] [id number] Microscopic Examination See below: (Normal) Comments: Microscopic was indicated and was performed. Microscopic Examination MICRON (Normal) Comments: Microscopic follows if indicated. Nitrite, Urine Negative (Normal) Urobilinogen,Semi-Qn 0.2 mg/dL (Normal) Range: 0.2-1.0 Bilirubin Negative (Normal) Occult Blood Negative (Normal) Ketones Trace (Abnormal) Glucose Negative (Normal) Protein Negative (Normal) WBC Esterase Negative (Normal) Appearance Clear (Normal) Urine-Color Yellow (Normal) pH 6.0 (Normal) Range: 5.0-7.5 Specific Buchanan 1.030 (Normal) Range: 1.005-1.030 :49 CBC W/AUTO DIFF WBC Comments: PATIENT WAS FASTINGPERFORMED BY: S[facility]6370 [facility] [id number] Information: [id number] (84136) Immature Grans (Abs) 0.0 {x10E3/uL} (Normal) Range: [...] {x10E3/uL} (Normal) Range: 3.4-10.8 :49 LIPID PANEL (85135) Comments: PATIENT WAS FASTINGPERFORMED BY: SARA Power EfficiencySt. Mary's HospitalSbwzsn1859 [facility] [id number] LDL/HDL Ratio 4.5 {ratio_units} (Abnormal) Range: 0.0-3.6 [...] PANEL, COMPREHENSIVE Comments: PATIENT WAS FASTINGPERFORMED BY: [employer] Dnnngt5834 [facility] [id number] (23174) ALT (SGPT) 15 [iU]/L (Normal) Range: 0-44 [...] Glucose, Serum 101 mg/dL (Abnormal) Range: 65-99 74-Pur-699230:17 Serum Creatinine AND GFR Comments: [facility] [address] [place], [address] EST GFR - AA 97 mL/min (Normal) Comments: GFR Calc EST GFR 80 mL/min (Normal) Comments: Non- GFR Calc CREAT,SERUM 0.98 mg/dL (Normal) Range: 0.70-1.30 Comments: The validity of the calculated GFR AND GFRAA in patients over70 years has not been determined. Clinical correlation isessential. :03 METABOLIC PANEL, Comments: PATIENT WAS FASTINGPERFORMED BY: LabCoSt. Mary's HospitalPqtbdy5832 [facility] [id number] Information: [id number] COMPREHENSIVE (03854) ALT (SGPT) 22 [iU]/L (Normal) Range: 0-44 [...] (PROSTATE SPECIFIC Comments: PATIENT WAS FASTINGPERFORMED BY: [facility]6370 [facility] [id number] ANTIGEN) (V76.44) Prostate Specific Ag, 4.5 ng/mL (Abnormal) Range: 0.0-4.0 Serum Comments: [employer] ECLIA methodology. .According to the [place] [employer], Serum PSA shoulddecrease and remain at undetectable levels after radicalprostatectomy. The AUA defines biochemical recurrence as an initialPSA value 0.2 ng/mL or greater followed by a subsequent confirmatoryPSA value 0.2 ng/mL or greater.Values obtained with d ifferent assay methods or kits cannot be usedinterchangeably. Results cannot be interpreted as absolute evidenceof the presence or absence of malignant disease. 54-Err-033997:38 CBC-Complete Blood Cnt No Diff Comments: [facility] [address] [place], [place], [address] MPV 10.0 fL (Normal) Range: 6.2-12.0 PLT [...] Range: 4.4-11.0 :38 Comprehensive Metabolic Profil Comments: [facility] [address] [place], [place], [address] GAP 7 (Normal) Range: 5-15 CO2 27.0 [...] Range: 70-110 :38 Partial Thromboplast Time Comments: [facility] [address] [place], [place], [address] PTT 34.2 s (Normal) Range: 24.1-36.2 :38 Prothrombin Time w/INR Comments: [facility] [address] [place], [address] INR 1.1 (Normal) PROTIME 14.0 s (Normal) Range: 11.7-14.9 :47 CBC-Complete Blood Cnt No Diff Comments: [facility] [address] [place], [place], [address] MPV 10.4 fL (Normal) Range: 6.2-12.0 PLT [...] Range: 4.4-11.0 :47 Comprehensive Metabolic Profil Comments: [facility] [address] [place], [place], [address] GAP 7 (Normal) Range: 5-15 CO2 28.0 [...] Range: 70-110 :47 Partial Thromboplast Time Comments: [facility] [address] [place], [place], [address] PTT 35.1 s (Normal) Range: 24.1-36.2 :47 Prothrombin Time w/INR Comments: [facility] Lqvghwnash[address]25 [facility]. [place], [place], [address] INR 1.0 (Normal) PROTIME 13.1 s (Normal) Range: 11.7-14.9 :23 CBC W/Diff, Automated Comments: Test performed at:[facility] [address] [place] [address] Absolute Lymph 1.72 {X10_3/ul} (Normal) [...] 07-Apr-20158:23 Comprehensive Metabolic Profil Comments: Test performed at:[facility] [address] [place] [address] GAP 10 (Normal) Range: 5-15 CO2 26.0 [...] Comments: Please note revised CREATININE reference range jikfiknnx67/22/2015. BUN 12 mg/dL (Normal) Range: 7-18 GLU 132 mg/dL (Abnormal) Range: 70-110 Comments: Fasting Glucose result greater than or equal to 126 mg/dLsuggests DIABETES MELLITUS per A.D.A. criteria. 07-Apr-20158:23 Prothrombin Time w/INR Comments: Test performed at:[facility] Ed[address]jku[address] [facility] [place] [address] INR 1.0 (Normal) PROTIME 13.7 s (Normal) Range: 11.7-14.9 9-Lpj-671271:25 AFP, Tumor Marker Comments: Is Patient ? NTest performed at:[facility] [address] [place] [address] AFP TUMOR 2253 578.5 ng/mL (Abnormal) Range: 0.0-8.3 Comments: Melodie ECLIA methodologyPerformed at: [facility] [employer] [id number] Director: Toy Walls MD, Phone: [phone] at: [address] [id number] Director: Lalo Murphy PhD, Phone: [phone] 3-Grr-631682:25 Hepatitis B C Genotype Comments: Is Patient ? NTest performed at:[facility] [address] [place] [address] COMMENT Comment (Normal) Comments: This test was developed and its performance characteristicsdetermined by [employer]. It has not been cleared or approvedby [...] HEP C GENOTYPE Test not performed (Normal) 6-Mvu-336802:25 Hepatitis C,RNA PCR Viral Load Comments: Is Patient ? NTest performed at:[facility] [address] [place] [address] TEST INFO: Comment (Normal) Comments: The quantitative [...] Not Detected {IU/mL} (Normal) :14 LIPID PANEL (41310) Comments: PATIENT WAS FASTINGPERFORMED BY: [employer] [facility] [id number]; non-emergent till apt LDL/HDL Ratio 6.1 {ratio_units} [...] METABOLIC PANEL, Comments: PATIENT WAS FASTINGPERFORMED BY: [employer]6370 [facility] [id number] Information: [id number] COMPREHENSIVE (71757) ALT (SGPT) 27 [iU]/L (Normal) Range: 0-44 [...] Glucose, Serum 98 mg/dL (Normal) Range: 65-99 80-Bwg-34882:04 EBV Panel (89604) Comments: PATIENT NOT FASTINGPERFORMED BY: [facility]6370 [facility] [id number] Information: [id number] Interpretation: SPRCS (Normal) Comments: EBV Interpretation Chart [...] Microscopic Examination Comments: PATIENT WAS FASTINGPERFORMED BY: [facility] [id number] Bacteria None seen (Normal) Mucus Threads Present (Normal) Epithelial Cells (non renal) None seen {/hpf} (Normal) Range: 0 - 10 RBC 0-2 {/hpf} (Normal) Range: 0 - 2 WBC 0-5 {/hpf} (Normal) Range: 0 - 5 :06 PSA (PROSTATE SPECIFIC Comments: PATIENT WAS FASTINGPERFORMED BY: [facility]de[facility] Software TechnologiesC[facility] [id number] ANTIGEN) (V76.44) Prostate Specific Ag, 3.8 ng/mL (Normal) Range: 0.0-4.0 Serum Comments: Melodie ECLIA methodology. .According to the [place] U[employer] Association, Serum PSA shoulddecrease and remain [...] of malignant disease. :06 URINALYSIS, W/ MICRO (60881) Comments: PATIENT WAS FASTINGPERFORMED BY: [facility] [id number] Microscopic Examination See below: (Normal) Comments: Microscopic was indicated and was performed. Microscopic Examination MICRON (Normal) Comments: Microscopic follows if indicated. Nitrite, Urine Negative (Normal) Urobilinogen,Semi-Qn 0.2 mg/dL (Normal) Range: 0.0-1.9 Bilirubin Negative (Normal) Occult Blood Negative (Normal) Ketones Negative (Normal) Glucose Negative (Normal) Protein Negative (Normal) WBC Esterase Negative (Normal) Appearance Clear (Normal) Urine-Color Yellow (Normal) pH 6.5 (Normal) Range: 5.0-7.5 Specific Buchanan 1.019 (Normal) Range: 1.005-1.030 07-Apr-20148:06 CBC WITH MANUAL DIFF Comments: PATIENT WAS FASTINGPERFORMED BY: LabCoSt. Mary's HospitalSuninh9589 [facility] [id number] Information: [id number] (35756) Immature Grans (Abs) 0.0 {x10E3/uL} (Normal) Range: [...] PANEL, COMPREHENSIVE Comments: PATIENT WAS FASTINGPERFORMED BY: LabCoSt. Mary's HospitalNtedvu0642 [facility] [id number] (50770) ALT (SGPT) 21 [iU]/L (Normal) Range: 0-44 [...] mg/dL (Normal) Range: 65-99 :06 LIPID PANEL (11333) Comments: PATIENT WAS FASTINGPERFORMED BY: [employer] [facility] [id number] LDL/HDL Ratio 4.4 {ratio_units} (Abnormal) Range: 0.0-3.6 LDL Cholesterol Calc 122 mg/dL (Abnormal) Range: 0-99 VLDL Cholesterol Elvin 43 mg/dL (Abnormal) Range: 5-40 HDL Cholesterol 28 mg/dL (Abnormal) Comments: According to ATP-III Guidelines, HDL-C >59 mg/dL is considered anegative risk factor for CHD. Triglycerides 216 mg/dL (Abnormal) Range: 0-149 Cholesterol, Total 193 mg/dL (Normal) Range: 100-199 5-Nny-115255:41 VARICELLA-ZOSTER ANTBODY Comments: PATIENT NOT FASTINGPERFORMED BY: [employer] [facility] [id number] Information: [id number] (75057) Varicella Zoster IgG 2.01 {index} (Normal) Comments: Nonimmune <0.91 Equivocal 0.91 - 1.09 Immune >1.09 02-Apr-20138:37 Microscopic Examination Comments: PATIENT WAS FASTINGPERFORMED BY: [employer] [facility] [id number] Bacteria None seen (Normal) Mucus Threads Present (Normal) Epithelial Cells (non renal) 0-10 {/hpf} (Normal) Range: 0 - 10 RBC 0-3 {/hpf} (Normal) Range: 0 - 3 WBC 0-5 {/hpf} (Normal) Range: 0 - 5 :37 URINALYSIS, W/ MICRO (36338) Comments: PATIENT WAS FASTINGPERFORMED BY: Comparabien.comSt. Mary's HospitalHahvsk1486 [facility] [id number] Microscopic Examination See below: (Normal) Microscopic Examination MICRON (Normal) Comments: Microscopic follows if indicated. Nitrite, Urine Negative (Normal) Urobilinogen,Semi-Qn 1.0 mg/dL (Normal) Range: 0.0-1.9 Bilirubin Negative (Normal) Occult Blood Negative (Normal) Ketones Negative (Normal) Glucose Negative (Normal) Protein Negative (Normal) WBC Esterase Negative (Normal) Appearance Clear (Normal) Urine-Color Yellow (Normal) pH 6.0 (Normal) Range: 5.0-7.5 Specific Buchanan 1.021 (Normal) Range: 1.005-1.030 :37 CBC WITH MANUAL DIFF Comments: PATIENT WAS FASTINGPERFORMED BY: Comparabien.comSt. Mary's HospitalPmhnws7494 [facility] [id number] Information: [id number] (96412) Immature Grans (Abs) 0.0 {x10E3/uL} (Normal) Range: [...] (PROSTATE SPECIFIC Comments: PATIENT WAS FASTINGPERFORMED BY: [facility]6370 [facility] [id number] ANTIGEN) (V76.44) Prostate Specific Ag, 3.6 ng/mL (Normal) Range: 0.0-4.0 Serum Comments: [employer] ECLIA methodology. .According to the [place] [employer] Association, Serum PSA shoulddecrease and remain at undetectable levels after radicalprostatectomy. The AUA defines biochemical recurrence as an initialPSA value 0.2 ng/mL or greater followed by a subsequent confirmatoryPSA value 0.2 ng/mL or greater.Values obtained with d ifferent assay methods or kits cannot be usedinterchangeably. Results cannot be interpreted as absolute evidenceof the presence or absence of malignant disease. :37 LIPID PANEL (70368) Comments: PATIENT WAS FASTINGPERFORMED BY: Power EfficiencySt. Mary's HospitalEnvxhs5438 [facility] [id number] LDL/HDL Ratio 4.8 {ratio_units} (Abnormal) Range: 0.0-3.6 [...] PANEL, COMPREHENSIVE Comments: PATIENT WAS FASTINGPERFORMED BY: [employer] Dxvoro1271 [facility] [id number] (32003) ALT (SGPT) 19 [iU]/L (Normal) Range: 0-44 [...] Glucose, Serum 94 mg/dL (Normal) Range: 65-99 93-Fhf-432839:43 PPD (82745) Comments: PT RECEIVED THIS AT WORK SKIN TEST INTRADERMAL TB negatvie (Normal) Comments: pt received this at work :33 LIPID PANEL (00587) Comments: PATIENT WAS FASTINGPERFORMED BY: [employer]6370 [facility] [id number] LDL/HDL Ratio 3.8 {ratio_units} (Abnormal) Range: 0.0-3.6 [...] METABOLIC PANEL, Comments: PATIENT WAS FASTINGPERFORMED BY: [employer]6370 [facility] [id number] Information: [id number] COMPREHENSIVE (25138) ALT (SGPT) 21 [iU]/L (Normal) Range: 0-55 [...] CHOL 193 mg/dL (Normal) Comments: <200 mg/dL Jftmsuwxh332-685 mg/dL Borderline>240 mg/dL High Risk :27 BMP [...] Indication: Prostate cancer Prostate cancer : Reviewed Fermenter Helper Letter Indication: Prostate cancer Hypertensive heart disease [...] Indication: Mixed hyperlipidemia Prostate cancer : Reviewed Fermenter Helper Letter Indication: Prostate cancer Hypertensive 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 heart failure : HTN/CAD Red Flags Indication: Hypertensive 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 heart failure Mixed hyperlipidemia : Cholesterol mgmt Indication: Mixed hyperlipidemia Mixed hyperlipidemia : Follow up in 6 months Indication: Mixed hyperlipidemia Prostate cancer : Reviewed Fermenter Helper Letter- urologist - dr Miller Indication: Prostate cancer Hypertensive 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 heart failure : HTN/CAD Red Flags Indication: Hypertensive 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 heart failure Mixed hyperlipidemia : Cholesterol mgmt Indication: Mixed hyperlipidemia Hepatocellular carcinoma : Reviewed Lab Indication: Hepatocellular carcinoma Encounter for screening for malignant neoplasm of prostate (Renamed from Screening for prostate cancer) : Reviewed Fermenter Helper Letter Indication: Encounter for screening for malignant [...] without heart failure Prostate cancer : Reviewed Fermenter Helper Letter- Dr Miller Indication: Prostate cancer Mixed hyperlipidemia : Cholesterol mgmt Indication: Mixed hyperlipidemia Hepatocellular carcinoma : Reviewed Lab: nornmal alpha feta prot Indication: Hepatocellular carcinoma Hepatocellular carcinoma : Reviewed Fermenter Helper Letter Indication: Hepatocellular carcinoma Hepatocellular carcinoma : Reviewed Diagnostic Tests Indication: Hepatocellular carcinoma Prostate cancer : Reviewed Lab Indication: Prostate cancer Prostate cancer : Reviewed Fermenter Helper Letter Indication: Prostate cancer Prostate cancer : [...] Leg swelling Depression : follow up with [facility] 10 days Indication: Depression Sinusitis, acute : [...] disease without heart failure Planned Observations TSH (35985)Indication: Mixed hyperlipidemia On: Request URINALYSIS, W/ MICRO (72037)Indication: Hypertensive heart disease without heart failure On: Request MICROALBUMIN: CREATININE RATIO (91598) AND (72076)Indication: Hypertensive heart disease without heart failure On: Request METABOLIC PANEL, COMPREHENSIVE (25756)Indication: Hypertensive heart disease without heart failure On: Request CBC W/AUTO DIFF WBC (49193)Indication: Hypertensive heart disease without heart failure On: Request LIPOPROTEIN, BLD, BY NMR (83930)Indication: Mixed hyperlipidemia On: 08-Sph-57354:01 Request CALCIFEDIOL (63295)Indication: Vitamin D deficiency On: :01 Request LIPID PANEL (71012)Indication: Mixed hyperlipidemia On: :07 Request METABOLIC PANEL, COMPREHENSIVE (04643)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 On: :07 Request CBC W/AUTO DIFF WBC (28346)Indication: Lymphocytosis On: :07 Request LIPID PANEL (47264)Indication: Hypertensive heart disease without heart failure On: 3-Mvn-045914:39 Request METABOLIC PANEL, COMPREHENSIVE (37940)Indication: Hypertensive heart disease without heart failure On: 5-Qaz-816992:39 Request METABOLIC PANEL, COMPREHENSIVE (11251)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 On: :08 Request HEPATIC FUNCTION PANEL (34730)Indication: Mixed hyperlipidemia On: 41-Zlr-606241:53 Request LIPID PANEL (91555)Indication: Mixed hyperlipidemia On: 12-Ulw-407278:52 Request METABOLIC PANEL, COMPREHENSIVE (14517)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 On: :09 Request LIPID PANEL (90533)Indication: Mixed hyperlipidemia On: :09 Request METABOLIC PANEL, COMPREHENSIVE (82820)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 On: 02-Okr-043163:55 Request LIPID PANEL (01994)Indication: Mixed hyperlipidemia On: 22-Smy-835198:54 Request CBC WITH MANUAL DIFF (39944) On: 95-Din-414327:57 Request Electrolyte Panel (25302) On: 81-Nek-080439:57 Request LIPID PANEL (56087)Indication: Mixed hyperlipidemia On: :03 Request METABOLIC PANEL, COMPREHENSIVE (16342)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 On: [id number]-Atz-[id number]:03 Request CBC WITH MANUAL DIFF ([id number])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 On: :03 Request METABOLIC PANEL, COMPREHENSIVE ([id number])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 On: 90-Rup-[id number]:05 Request HEPATIC FUNCTION PANEL ([id number])Indication: Mixed hyperlipidemia On: 79-Uel-949549:05 Request Comments: 3 mos LIPID PANEL ([id number])Indication: Mixed hyperlipidemia On: 29-Wsg-354761:05 Request Planned Encounters Medical; Walk Assessment - On: 19-Jun-2018 15:15 [facility] Visit, Nurse Medical; Hospital Follow Up - On: 28-Jun-2018 12:15 [facility] Swetha Pedersen DO, DO, Kathleen Planned Procedures ELECTROCARDIOGRAM, COMPLETE (ECG) On: 20-Nov-2017 Intent ([id number])By: Robyn Vergara Comments: nsr no acute cgh Flu Vaccine (Quadrivalent) [id number]: On: 22-May-2017 Intent Swetha Pedersen DO, DO, Comments: QUAD flu shotlot number: [id number]: 10/2017L Deltoid IMAD AXLE INSPECTOR Swetha [id number] BEHAVIORAL COUNSELING FOR On: 16-Jan-2017 Intent OBESITY, 15 MINUTES ([id number])By: Swetha Pedersen DO, DO, Kathleen ELECTROCARDIOGRAM, COMPLETE (ECG) On: 21-Nov-2016 Intent ([id number])By: Swetha Pedersen DO Comments: nsr no acute chg Swetha DOUGLAS ADMINISTRATION OF INFLUENZA VIRUS On: 27-Apr-2015 Intent VACCINE ([id number])By: Lisa Potter DO FLU VAC, SPLIT, >3 YEARS, INTRAMUSC On: 27-Apr-2015 Intent ([id number])By: Lisa Potter DO Comments: Lot:[id number]:12/13Dose:0.5mLRoute:IMSite:L DltdGiven By:AMBROSIO signed EKG ([id number])By: Lisa Potter DO On: 13-Oct-2014 Intent Comments: ekg showed normal sinus rhythym, normal axis, no acute st/t wave changes lvh IMMUNIZ ADMNIN, 1 VAC, SNGL/COMBO On: 07-Oct-2013 Intent ([id number])By: Lisa Potter DO Comments: Lot: [id number]: 38Wfs56Hhu: 0.5mlRoute: IMSite: L detoidGiven by: ALYSSA Sotelo PNEUM VAC ADLT/IMUMNOSPR, SBC/INTRM On: 07-Oct-2013 Intent ([id number])By: Lisa Potter DO EKG ([id number])By: Lisa Potter DO On: 07-Oct-2013 Intent Comments: ekg- sinus with left axis and lvh no change compared to prvious FLU VAC, SPLIT, >3 YEARS, INTRAMUSC On: 10-Oct-2011 Intent ([id number])By: Mila Osullivan Comments: received 04/2011 TDAP VACCINE >7 IM ([id number])By: Shi, On: 10-Oct-2011 Intent Mila Comments: declines Eprescribed prescriptions ([id number])By: On: 01-Apr-2011 Intent Lisa Potter DO EKG ([id number])By: Mila Osullivan On: 12-Oct-2009 Intent EKG ([id number])By: Lisa Potter DO On: 25-Sep-2006 Intent Comments: [...] Advance Directives Name Dates Details Immunization Registry [place] - Effective on Effective: 22-May-201705/22/2017. Expiration date [...] patient does not have durable power of erisa attorney or living will. The patient has [...] patient does not have durable power of erisa attorney or living will. The patient has [...] and bp is good - he saw Blair and still has right inguinal hernia- - [...] polyp and wasnt cancernous - he saw old coin dealer at 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
--- OUTSIDE RECORDS SUMMARY | 2018-08-26 09:54 | XMS RPT_ITS | Continuity of Care Document ---
:1945 Author Organization [facility] Address [address] [place] [address] Phone Care Team Providers Name Role Phone [...] in size with no enhancem ent to [facility] recurrent disease,Diagnosed in 2015: 2 procedure [...] 16-Aug-2016 End : 15-Sep-2016 Inactive Vitamin D3 24068 UNIT Oral Capsule 1 (one) Capsule Capsule [...] Summary Result: Comments: See Note; NOTES: [facility] Medical Records Department [address] [place] [address] Emergency Department Summary 05/11/18 1307 MR#: [id number] Acct: [id number] Name: LUCAS EAST Rep #: [id number] : 1945 73 From: Cristina Lyles MD PCP: Swetha Pedersen DO Status: REG ER - ER Visit Summary Date of Service: 05/11/18 Chief Complaint: Wound check Histo ry of Present Illness: The patient is a 73 M presenting for wound check. Patient had surgery at [facility] on April 25 for a strangulated hernia. This was complicated by sepsis. He was in [facility] for 12 days. He was discharged [...] Discussed with Dr. Meeks at [facility]. He is in agreement that the patient can stay at [facility] as the patient wishes. Discussed with Dr. Hyde and patient will be admitted. Disposition: Admission Impression: Healthcare acquired pneumonia This note was generated with Madmagz dictation software. It may contain incorrect words, [...] problems, contact your Primary Care Provider. Call [facility] ([phone]) or report to the closest Emergency Room. Call 911 if necessary. 05/11/18 1601 <Electronically signed by Shayne Lyles MD> Date Cristina Lyles MD Cosigner Signature (If Indicated): Date CC: Swetha Pedersen DO 11-May-2018 Acute Abdomen Inc Chest Result: Comments: See Note; NOTES: [facility] Imaging Services [address] [place] [address] Acute Abdomen Inc Chest MR#: [id number] Acct: [id number] Name: LUCAS EAST Rep #: [id number] : 1945 73 From: Benton Toledo MD PCP: Swetha Pedersen DO Status: REG ER Study: Acute Abdomen Inc Chest Date of Exam: 05/11/18 Exam# [id number] Ordering Dr: Cristina Lyles MD JONATAN DY: [...] CC: Cristina Lyles MD; Swetha Pedersen DO [employer] C[employer]: Signed 21-Apr-2018 Emergency Department Summary Result: Comments: See Note; NOTES: [facility] Medical Records Department [address] [facility] [place] [place] [address] Emergency Department Summary 04/21/18 0057 MR#: [id number] Acct: [id number] Name: LUCAS EAST Rep #: [id number] : 1945 73 From: Bobby Walton MD [...] 30-74 minutes This note was generated with Madmagz dictation software. It may contain incorrect words, [...] your Primary Care Provider. Call [facility] ([phone]) or report to the closest Emergency Room. Call 911 if necessar y. 04/21/18 0214 <Electronically signed by Bobby Walton MD> Date Bobby Walton MD Cosigner Signature (If Indicated): Date __ CC: Swetha Pedersen DO 20-Apr-2018 Abdomen/Pelvis without Cont Result: Comments: See Note; NOTES: [facility] Imaging Services [address] [address] Abdomen/Pelvis without Cont MR#: [id number] Acct: [id number] Name: LUCAS EAST Rep # : [id number] : 1945 M 73 From: Laverne Ladd MD PCP: Swetha Pedersen DO Status: REG ER Study: Abdomen/Pelvis without Cont Date of Exam: 04/20/18 Exam# [id number] Ordering Dr: Bobby Walton STUDY: CT ABDOMEN [...] CC: Swetha Pedersen DO; Bobby Walton MD [employer]: Signed 10-Nov-2014 Abdomen/Pelvis W/WO Contrast Result: Comments: See Note; NOTES: [facility] Imaging Services [address] [place] [address] CAT Scan Report MR#: [id number] Acct: [id number] Name: LUCAS EAST Rep #: [id number] : 1945 M 69 From: Salvatore Gomes DO PCP: Lisa Potter DO Status: REG CLI Study: Abdomen/Pelvis W/WO Contrast Date of Exam: 11/10/14 Exam# [id number] Ordering Dr: Josef Patton MD [facility] DY: CT ABDOMEN AND PELVIS [...] Gomes DO 11/10 at 13:34 EDT Tel [phone], Service support [phone], CC: Lisa Potter DO; Josef Patton [employer]: Signed Immunization Name Dates Details Influenza vaccine, [...] smoker Vital Signs Date Test Result Details 55-Djs-184243:02 Comments: 12/2017 last eye exam was tested [...] Height 0 in Head Circumference 0.00 cm 34-Hkb-587488:00 Temperature 98.1 f Comments: Method: Oral Pulse [...] 0.00 cm Results Date Description Value Details 90-Iyp-328360:33 Basic Metabolic Profile (BMP) Comments: Send Results To: Swetha Hudson [facility] [address] [place], [address] GAP 11 (Normal) Range: 5-15 CO2 28.0 [...] Comments: Please note revised GLUCOSE reference range ruxncyhcb57/02/2018. 39-Vxd-850844:29 Urinalysis, Complete Comments: Order Date: 05/11/18How was Urine Obtained? CLEAN [facility] Xaeitprbmx[address] [facility]. [place], [place], [address] MUCUS, URINE 2+ {/hpf} (Normal) BACTERIA 1+ [...] (Normal) CLARITY Clear (Normal) COLOR Yellow (Normal) 62-Bfm-018215:19 Basic Metabolic Profile (BMP) Comments: [facility] Fgcmalzvao6407 [facility]. [place], [place], [address] GAP 7 (Normal) Range: 5-15 CO2 25.0 [...] A.D.A. criteria.Please note revised GLUCOSE reference range cixdjzjax50/02/2018. 32-Pxo-798053:19 CBC W/Diff, Automated Comments: [facility] [address]rrzdhzjs4[address] [facility] [address]. [place], [place], [address] Absolute Lymph 1.73 {X10_3/ul} (Normal) Range: 0.83-4.51 [...] 4.6-6.2 WBC 7.5 K/mm3 (Normal) Range: 4.4-11.0 80-Loi-926171:10 Basic Metabolic Profile (BMP) Comments: [facility] [address] [place], [address] GAP 12 (Normal) Range: 5-15 CO2 22.0 [...] A.D.A. criteria.Please note revised GLUCOSE reference range bgpdxzanh39/02/2018. 11-Cvn-464421:10 CBC W/Diff, Automated Comments: [facility] [address] [place], [address] Absolute Lymph 2.70 {X10_3/ul} (Normal) Range: 0.83-4.51 [...] Range: 4.4-11.0 :10 Partial Thromboplast Time Comments: [facility] [address] [place], [address] PTT 39.8 s (Abnormal) Range: 24.1-36.2 :10 Prothrombin Time w/INR Comments: [facility] [address] [place], [place], [address] INR 1.3 (Normal) PROTIME 16.3 s (Abnormal) Range: 11.7-14.9 :21 Microscopic Examination Comments: PATIENT WAS FASTINGPERFORMED BY: [facility]6370 [facility] [id number] Bacteria Few (Normal) Mucus Threads Present (Normal) Cast Type Hyaline casts (Normal) Casts Present {/lpf} (Abnormal) Epithelial Cells (non renal) 0-10 {/hpf} (Normal) Range: 0 - 10 RBC 0-2 {/hpf} (Normal) Range: 0 - 2 WBC 0-5 {/hpf} (Normal) Range: 0 - 5 :49 PSA,Total- Diagnostic Comments: [facility] [address] [place], [place], [address] PSA, DIAGNOSTIC 4.43 ng/mL (Abnormal) Range: 0.0-4.0 Comments: This test was performed using the TPSA assay method for [employer] chemistry system. Values obtained with differentassay methods cannot be used interchangably.When changing PSA assays in the course of monitoring apatient, additional sequential testing should be carriedout to confirm baseline values. 11-Xxr-162628:50 HgA1C , Office (10399) HgA1C , Office 5.7 % (Normal) Range: 4.6 - 7.1 :21 CALCIFEDIOL (88419) Comments: PATIENT WAS FASTINGPERFORMED BY: [facility]6[address] [facility] [id number] Vitamin D, 25-Hydroxy 49.2 ng/mL (Normal) Range: 30.0-100.0 Comments: Vitamin D deficiency has been defined by the [place] ofMedicine and an Endocrine Society practice guideline as alevel of serum 25-OH vitamin D less than 20 ng/mL (1,2).The Endocrine Society went on to further define vitamin Dinsufficiency as a level between 21 and 29 ng/mL (2).1. IOM (Hathaway of Medicine). 2010. Dietary reference intakes for calcium and D. [place]: The National Academies Press.2. Reuben MF, Stephanie CLARK, Radha MILLIGAN, et al. Evaluation, treatment, and prevention of vitamin D deficiency: an Endocrine Society clinical practice guideline. JCEM. 2010; 96(7):1911-30. :21 TSH (99270) Comments: PATIENT WAS FASTINGPERFORMED BY: Epic! Znphbz8029 [facility] [place] [id number] TSH 2.900 {uIU/mL} (Normal) Range: 0.450-4.500 :21 URINALYSIS, W/ MICRO (47885) Comments: PATIENT WAS FASTINGPERFORMED BY: [employer] [facility] [id number] Microscopic Examination See below: (Normal) Comments: Microscopic was indicated and was performed. Microscopic Examination MICRON (Normal) Comments: Microscopic follows if indicated. Nitrite, Urine Negative (Normal) Urobilinogen,Semi-Qn 0.2 mg/dL (Normal) Range: 0.2-1.0 Bilirubin Negative (Normal) Occult Blood Negative (Normal) Ketones Negative (Normal) Glucose Negative (Normal) Protein Negative (Normal) WBC Esterase Negative (Normal) Appearance Clear (Normal) Urine-Color Yellow (Normal) pH 5.0 (Normal) Range: 5.0-7.5 Specific [place] 1.016 (Normal) Range: 1.005-1.030 :21 MICROALBUMIN: CREATININE RATIO Comments: PATIENT WAS FASTINGPERFORMED BY: [employer] [address] [facility] HospitalELVPHDCarolinas [facility] [id number] (41555) AND (12011) Alb/Creat Ratio <3.8 {mg/g_creat} (Normal) Range: 0.0-30.0 Albumin, Urine <3.0 ug/mL (Normal) Creatinine, Urine 79.5 mg/dL (Normal) :21 METABOLIC PANEL, COMPREHENSIVE Comments: PATIENT WAS FASTINGPERFORMED BY: [employer] Dojqes2233 [facility] [id number] (81656) ALT (SGPT) 16 [iU]/L (Normal) Range: 0-44 [...] 8-27 Glucose 94 mg/dL (Normal) Range: 65-99 82-Vgb-45627:21 CBC W/AUTO DIFF WBC (85031) Comments: PATIENT WAS FASTINGPERFORMED BY: LabCoPalisades Medical CenterLkgovd0997 [facility] [id number] Immature Grans (Abs) 0.0 {x10E3/uL} (Normal) Range: [...] {x10E3/uL} (Normal) Range: 3.4-10.8 :21 LIPID PANEL (74617) Comments: PATIENT WAS FASTINGPERFORMED BY: [facility]isokoCarolinas [facility] [id number] LDL/HDL Ratio 3.0 {ratio} (Normal) Range: 0.0-3.6 [...] Microscopic Examination Comments: PATIENT WAS FASTINGPERFORMED BY: [facility]okoCarolin[facility] [id number] Bacteria None seen (Normal) Mucus Threads Present (Normal) Epithelial Cells (non renal) 0-10 {/hpf} (Normal) Range: 0 - 10 RBC 0-2 {/hpf} (Normal) Range: 0 - 2 WBC 0-5 {/hpf} (Normal) Range: 0 - 5 7-Nov-89689:12 PSA,Total- Diagnostic Comments: [facility] [address] [place], [address] PSA, DIAGNOSTIC 4.20 ng/mL (Abnormal) Range: 0.0-4.0 Comments: This test was performed using the TPSA assay method for theGFRANQ chemistry system. Values obtained with differentassay methods cannot be used interchangably.When changing PSA assays in the course of monitoring apatient, additional sequential testing should be carriedout to confirm baseline values. :49 TSH (85911) Comments: PATIENT WAS FASTINGPERFORMED BY: [employer] [facility] Uowizj8156 Uriostegui RoadDublin [place] [id number] TSH 3.530 {uIU/mL} (Normal) Range: 0.450-4.500 :49 CALCIFEDIOL (35195) Comments: PATIENT WAS FASTINGPERFORMED BY: CB [facility] Itarzf5290 Uriostegui RoadDublin [place] [id number] Vitamin D, 25-Hydroxy 28.4 ng/mL (Abnormal) Range: 30.0-100.0 Comments: Vitamin D deficiency has been defined by the [place]ath[place] ofMedicine and an Endocrine Society practice guideline as alevel of serum 25-OH vitamin D less than 20 ng/mL (1,2).The Endocrine Society went on to further define vitamin Dinsufficiency as a level between 21 and 29 ng/mL (2).1. IOM (Hathaway of Medicine). 2010. Dietary reference intakes for calcium and D. [place]: The National Academies Press.2. Reuben MF, Stephanie CLARK, Radha MILLIGAN, et al. Evaluation, treatment, and prevention of vitamin D deficiency: an Endocrine Society clinical practice guideline. JCEM. 2010; 96(7):1911-30. :49 URINALYSIS, W/ MICRO (73303) Comments: PATIENT WAS FASTINGPERFORMED BY: CB [facility] Cggjnj2595 Ruiostegui RoadDublin [place] [id number] Microscopic Examination See below: (Normal) Comments: Microscopic was indicated and was performed. Microscopic Examination MICRON (Normal) Comments: Microscopic follows if indicated. Nitrite, Urine Negative (Normal) Urobilinogen,Semi-Qn 0.2 mg/dL (Normal) Range: 0.2-1.0 Bilirubin Negative (Normal) Occult Blood Negative (Normal) Ketones Negative (Normal) Glucose Negative (Normal) Protein Negative (Normal) WBC Esterase Negative (Normal) Appearance Clear (Normal) Urine-Color Yellow (Normal) pH 5.5 (Normal) Range: 5.0-7.5 Specific [place] 1.018 (Normal) Range: 1.005-1.030 :49 MICROALBUMIN: CREATININE RATIO Comments: PATIENT WAS FASTINGPERFORMED BY: ScoopinionPalisades Medical CenterWwoorr4959 [facility] [id number] (36751) AND (42024) Alb/Creat Ratio <3.0 {mg/g_creat} (Normal) Range: 0.0-30.0 Albumin, Urine <3.0 ug/mL (Normal) Creatinine, Urine 101.1 mg/dL (Normal) :49 METABOLIC PANEL, COMPREHENSIVE Comments: PATIENT WAS FASTINGPERFORMED BY: ScoopinionPalisades Medical CenterFuosmu9142 [facility] [id number] (88514) ALT (SGPT) 17 [iU]/L (Normal) Range: 0-44 [...] 8-27 Glucose 100 mg/dL (Abnormal) Range: 65-99 87-Idv-93336:49 CBC W/AUTO DIFF WBC (28964) Comments: PATIENT WAS FASTINGPERFORMED BY: LabCoPalisades Medical CenterDfpyjv6000 [facility] [id number] Immature Grans (Abs) 0.0 {x10E3/uL} (Normal) Range: [...] {x10E3/uL} (Normal) Range: 3.4-10.8 :49 LIPID PANEL (15970) Comments: PATIENT WAS FASTINGPERFORMED BY: Epic![facility] Medical CenterSdgvse8154 [facility] [id number] LDL/HDL Ratio 4.3 {ratio} (Abnormal) Range: 0.0-3.6 Comments: LDL/HDL Ratio Men Women 1/2 Avg.Risk 1.0 1.5 Av g.Risk 3.6 3.2 2X Avg.Risk 6.2 5.0 3X Avg.Risk 8.0 6.1 LDL Cholesterol Calc 149 mg/dL (Abnormal) Range: 0-99 VLDL Cholesterol Elvin 36 mg/dL (Normal) Range: 5-40 HDL Cholesterol 35 mg/dL (Abnormal) Triglycerides 181 mg/dL (Abnormal) Range: 0-149 Cholesterol, Total 220 mg/dL (Abnormal) Range: 100-199 21-Rbd-524483:47 Microscopic Examination Comments: PATIENT WAS FASTINGPERFORMED BY: [facility] Sizkju9959 [facility] [id number] Bacteria Few (Normal) Mucus Threads Present (Normal) Epithelial Cells (non renal) 0-10 {/hpf} (Normal) Range: 0 - 10 RBC 0-2 {/hpf} (Normal) Range: 0 - 2 WBC 0-5 {/hpf} (Normal) Range: 0 - 5 :53 AFP, Tumor Marker Comments: FAX AFP RESULTS TO [phone] Patient ? NComments: ALPHA FETOPROTIEN,SERUM RTLabCorp (refer to report for specific site)refer to report for address and phone number AFP TUMOR 2253 3.1 ng/mL (Normal) Range: 0.0-8.3 Comments: Melodie ECLIA methodology :53 Basic Metabolic Profile (BMP) Comments: Comments: ALPHA FETOPROTIEN,SERUM [facility] [address]jq[address] [place], [place], [address] GAP 5 (Normal) Range: 5-15 CO2 29.0 [...] Profile Comments: Comments: ALPHA FETOPROTIEN,SERUM [facility] [address]ddbkhveyw[address] [place], [place], [address] D BILI 0.24 mg/dL (Normal) Range: 0.00-0.30 T BILI 1.10 mg/dL (Abnormal) Range: 0.20-1.00 ALT 30 U/L (Normal) Range: 12-78 ALK P 85 U/L (Normal) Range: 45-117 AST 17 U/L (Normal) Range: 15-37 GLOB 3.5 g/dL (Normal) Range: 2.3-3.5 ALB 3.9 g/dL (Normal) Range: 3.4-5.0 T PROT 7.4 g/dL (Normal) Range: 6.4-8.2 :53 Phosphorus Comments: Comments: ALPHA FETOPROTIEN,SERUM [facility] [address] [place], [place], [address] PHOS 2.6 mg/dL (Normal) Range: 2.5-4.9 :53 Prothrombin Time w/INR Comments: [facility] [address]qi[address] [place], [place], [address] INR 1.1 (Normal) PROTIME 13.7 s (Normal) Range: 11.7-14.9 :47 TSH (70438) Comments: PATIENT WAS FASTINGPERFORMED BY: [employer] Energy SolutionsHelen [facility]6370 [facility] [id number] TSH 1.580 {uIU/mL} (Normal) Range: 0.450-4.500 :47 URINALYSIS, W/ MICRO (92126) Comments: PATIENT WAS FASTINGPERFORMED BY: [employer] Energy SolutionsHelen [facility]6370 [facility] [id number] Microscopic Examination See below: (Normal) Comments: Microscopic was indicated and was performed. Microscopic Examination MICRON (Normal) Comments: Microscopic follows if indicated. Nitrite, Urine Negative (Normal) Urobilinogen,Semi-Qn 0.2 mg/dL (Normal) Range: 0.2-1.0 Bilirubin Negative (Normal) Occult Blood Negative (Normal) Ketones Negative (Normal) Glucose Negative (Normal) Protein Negative (Normal) WBC Esterase Negative (Normal) Appearance Clear (Normal) Urine-Color Yellow (Normal) pH 5.5 (Normal) Range: 5.0-7.5 Specific [place] 1.026 (Normal) Range: 1.005-1.030 :47 MICROALBUMIN: CREATININE RATIO Comments: PATIENT WAS FASTINGPERFORMED BY: Epic!RUSTNqmygi5866 [facility] [id number] (12923) AND (28136) Microalb/Creat Ratio 3.1 {mg/g_creat} (Normal) Range: 0.0-30.0 Microalbumin, Urine 5.4 ug/mL (Normal) Creatinine, Urine 172.4 mg/dL (Normal) :47 METABOLIC PANEL, COMPREHENSIVE Comments: PATIENT WAS FASTINGPERFORMED BY: [employer] Energy SolutionsHelen [facility]6370 [facility] [id number] (23929) ALT (SGPT) 19 [iU]/L (Normal) Range: 0-44 [...] Glucose, Serum 99 mg/dL (Normal) Range: 65-99 93-Cdv-435898:47 CBC W/AUTO DIFF WBC (26598) Comments: PATIENT WAS FASTINGPERFORMED BY: LabCoPalisades Medical CenterNiszwl6225 [facility] [id number] Immature Grans (Abs) 0.0 {x10E3/uL} (Normal) Range: [...] {x10E3/uL} (Normal) Range: 3.4-10.8 :47 LIPID PANEL (11814) Comments: PATIENT WAS FASTINGPERFORMED BY: LabCoPalisades Medical CenterXjtedd2989 [facility] [id number]; will review on 05/22 LDL/HDL Ratio 3.6 [...] Cholesterol, Total 184 mg/dL (Normal) Range: 100-199 2-Wgi-242709:09 PSA,Total- Diagnostic Comments: [facility] [address] [place], [place], [address] PSA, DIAGNOSTIC 6.85 ng/mL (Abnormal) Range: 0.0-4.0 Comments: This test was performed using the TPSA assay method for the[employer] chemistry system. Values obtained with differentassay methods [...] 0.0-8.3 Comments: Melodie ECLIA methodologyPerformed at: - LabCo[address] [id number] Director: Josef Ventura PhD, Phone: [phone] 9-Mcy-681077:53 Basic Metabolic Profile (BMP) Comments: Comments: [facility] Zoommiumni[address] [place], [address] GAP 8 (Normal) Range: 5-15 [...] Range: 70-110 :53 Liver Profile Comments: Comments: [facility] [address]ogj[address] [place], [address] D BILI 0.23 mg/dL (Normal) Range: 0.00-0.30 T BILI 1.00 mg/dL (Normal) Range: 0.20-1.00 ALT 26 U/L (Normal) Range: 12-78 ALK P 98 U/L (Normal) Range: 45-117 AST 19 U/L (Normal) Range: 15-37 GLOB 3.8 g/dL (Abnormal) Range: 2.3-3.5 ALB 3.9 g/dL (Normal) Range: 3.4-5.0 T PROT 7.7 g/dL (Normal) Range: 6.4-8.2 :53 Phosphorus Comments: Comments: [facility] [address]abhwwl[address] [place], [place], [address] PHOS 2.3 mg/dL (Abnormal) Range: 2.5-4.9 :53 Prothrombin Time w/INR Comments: [facility] [address] [place], [place], [address] INR 1.1 (Normal) PROTIME 13.4 s (Normal) Range: 11.7-14.9 70-Viz-648264:24 MICROALBUMIN: CREATININE RATIO Comments: PATIENT WAS FASTINGPERFORMED BY: [employer]6370 [facility] [id number] (91924) AND (64911) Microalb/Creat Ratio 5.7 {mg/g_creat} (Normal) Range: 0.0-30.0 Microalbumin, Urine 9.7 ug/mL (Normal) Creatinine, Urine 169.8 mg/dL (Normal) 87-Syi-159823:24 VITAMIN B12 AND FOLATES Comments: PATIENT WAS FASTINGPERFORMED BY: [employer]6370 [facility] [id number] (03593) Folate (Folic Acid), Serum >20.0 ng/mL (Normal) Comments: A serum folate concentration of less than 3.1 ng/mL isconsidered to represent clinical deficiency. Vitamin B12 323 pg/mL (Normal) Range: 211-946 53-Qad-878547:24 CALCIFEDIOL (71500) Comments: PATIENT WAS FASTINGPERFORMED BY: [facility]6370 [facility] [id number] Vitamin D, 25-Hydroxy 33.2 ng/mL (Normal) Range: 30.0-100.0 Comments: Vitamin D deficiency has been defined by the [place] ofMedicine and an Endocrine Society practice guideline as alevel of serum 25-OH vitamin D less than 20 ng/mL (1,2).The Endocrine Society went on to further define vitamin Dinsufficiency as a level between 21 and 29 ng/mL (2).1. IOM ([place] of Medicine). 2010. Dietary reference intakes for calcium and D. [place]: The National Academies Press.2. Reuben MF, Stephanie NC, Radha MILLIGAN, et al. Evaluation, treatment, and prevention of vitamin D deficiency: an Endocrine Society clinical practice guideline. JCEM. 2010; 96(7):1911-30. 75-Xoh-320790:24 TSH (THYROID STIMULATING Comments: PATIENT WAS FASTINGPERFORMED BY: [employer] [place] [id number] HORMONE) (27052) TSH 2.410 {uIU/mL} (Normal) Range: 0.450-4.500 :24 LIPID PANEL (67486) Comments: PATIENT WAS FASTINGPERFORMED BY: ArisokoCarolinas [facility] [id number] LDL/HDL Ratio 3.7 {ratio_units} (Abnormal) Range: 0.0-3.6 [...] PANEL, COMPREHENSIVE Comments: PATIENT WAS FASTINGPERFORMED BY: Ar[facility]okoCarolinas [facility] [id number] (57577) ALT (SGPT) 30 [iU]/L (Normal) Range: 0-44 [...] Glucose, Serum 99 mg/dL (Normal) Range: 65-99 18-Lyx-689549:24 CBC, PLATELETS & AUT DIFF Comments: PATIENT WAS FASTINGPERFORMED BY: [facility] Qeqzzw3868 [facility] [id number]; fu 4-24 KF (49773) Immature Grans (Abs) 0.0 {x10E3/uL} (Normal) Range: [...] 2253 2.6 ng/mL (Normal) Range: 0.0-8.3 Comments: [employer] ECLIA methodologyPerformed at: [facility] - [facility] [address] [id number] Director: Josef Ventura PhD, Phone: [phone] 74-Rge-80349:30 Bilirubin, Direct Comments: [facility] Hrsyaqucik5979 [facility] [place], [place], [address] D BILI 0.29 mg/dL (Normal) Range: 0.00-0.30 94-Rsj-00402:30 Comprehensive Metabolic Profil Comments: [facility] Kdrbtuerab2143 [facility]. [place], [place], [address] GAP 8 (Normal) Range: 5-15 CO2 26.0 [...] mg/dL (Normal) Range: 70-110 :30 Phosphorus Comments: [facility] [address]ospnjchmn[address] [facility] [place], [address] PHOS 2.4 mg/dL (Abnormal) Range: 2.5-4.9 :30 Prothrombin Time w/INR Comments: [facility] [address]xselwrlu[address] [facility] [place], [address] INR 1.1 (Normal) PROTIME 13.4 s (Normal) Range: 11.7-14.9 :35 CALCIFEDIOL (66115) Comments: PATIENT WAS FASTINGPERFORMED BY: LabCoPalisades Medical CenterLrhzqb3674 [facility] [id number] Vitamin D, 25-Hydroxy 45.6 ng/mL (Normal) Range: 30.0-100.0 Comments: Vitamin D deficiency has been defined by the [place] ofMedicine and an Endocrine Society practice guideline as alevel of serum 25-OH vitamin D less than 20 ng/mL (1,2).The Endocrine Society went on to further define vitamin Dinsufficiency as a level between 21 and 29 ng/mL (2).1. IOM ([place] of Medicine). 2010. Dietary reference intakes for calcium and D. [place]: The National Academies Press.2. Reuben MF, Stephanie CLARK, Radha MILLIGAN, et al. Evaluation, treatment, and prevention of vitamin D deficiency: an Endocrine Society clinical practice guideline. JCEM. 2010; 96(7):1911-30. :35 METABOLIC PANEL, COMPREHENSIVE Comments: PATIENT WAS FASTINGPERFORMED BY: LabCoPalisades Medical CenterEexqaw8799 [facility] [id number] (15157) ALT (SGPT) 18 [iU]/L (Normal) Range: 0-44 [...] mg/dL (Abnormal) Range: 65-99 :35 LIPID PANEL (60307) Comments: PATIENT WAS FASTINGPERFORMED BY: [facility]CoPal[facility]ades Medical CenterHzcetj4205 [facility] [id number] LDL/HDL Ratio 4.4 {ratio_units} (Abnormal) Range: 0.0-3.6 Comments: LDL/HDL Ratio Men Women 1/2 Avg.Risk 1.0 1.5 Av g.Risk 3.6 3.2 2X Avg.Risk 6.2 5.0 3X Avg.Risk 8.0 6.1 LDL Cholesterol Calc 151 mg/dL (Abnormal) Range: 0-99 VLDL Cholesterol Elvin 33 mg/dL (Normal) Range: 5-40 HDL Cholesterol 34 mg/dL (Abnormal) Triglycerides 165 mg/dL (Abnormal) Range: 0-149 Cholesterol, Total 218 mg/dL (Abnormal) Range: 100-199 49-Otg-219264:13 PSA,Total- Diagnostic Comments: [facility] [address] [place], [place], [address] PSA, DIAGNOSTIC 6.86 ng/mL (Abnormal) Range: 0.0-4.0 Comments: This test was performed using the TPSA assay method for theGFRANQ chemistry system. Values obtained with differentassay methods cannot be used interchangably.When changing PSA assays in the course of monitoring apatient, additional sequential testing should be carriedout to confirm baseline values. 71-Thk-217073:29 HgA1C , Office (77660) HgA1C , Office 5.6 % (Normal) Range: 4.6 - 7.1 :19 AFP, Tumor Marker Comments: Is Patient ? [facility] (refer to report for specific site)refer to report for address and phone number AFP TUMOR 2253 3.8 ng/mL (Normal) Range: 0.0-8.3 Comments: Melodie ECLIA methodologyPerformed at: - [facility] [id number] Director: Josef Ventura PhD, Phone: [phone] Basic Metabolic Profile (BMP) Comments: [facility] [address] [place], [place], [id number] GAP 6 (Normal) Range: 5-15 CO2 27.0 [...] 7-18 GLU 92 mg/dL (Normal) Range: 70-110 02-Rgi-01739:19 CBC W/Diff, Automated Comments: [facility] [address] [place], [place], [id number] Absolute Lymph 2.14 {X10_3/ul} (Normal) Range: 0.83-4.51 [...] (Normal) Range: 4.4-11.0 :19 Liver Profile Comments: [facility] [address] [place], [address] D BILI 0.21 mg/dL (Normal) Range: 0.00-0.30 T BILI 1.50 mg/dL (Abnormal) Range: 0.20-1.00 ALT 23 U/L (Normal) Range: 12-78 ALK P 89 U/L (Normal) Range: 50-136 AST 15 U/L (Normal) Range: 15-37 GLOB 3.6 g/dL (Abnormal) Range: 2.3-3.5 ALB 3.7 g/dL (Normal) Range: 3.4-5.0 T PROT 7.3 g/dL (Normal) Range: 6.4-8.2 :19 Phosphorus Comments: [facility] [address] [facility] [place], [address] PHOS 2.5 mg/dL (Normal) Range: 2.5-4.9 :19 Prothrombin Time w/INR Comments: [facility] [address] [place], [address] INR 1.1 (Normal) PROTIME 13.6 s (Normal) Range: 11.7-14.9 75-Zah-466920:21 VITAMIN B12 AND FOLATES Comments: PATIENT WAS FASTINGPERFORMED BY: LabCoPalisades Medical CenterBhqfql5081 [facility] [id number] ([id number]) Folate (Folic Acid), Serum >20.0 ng/mL (Normal) Comments: A serum folate concentration of less than 3.1 ng/mL isconsidered to represent clinical deficiency. Vitamin B12 358 pg/mL (Normal) Range: 211-946 04-Kjs-035526:21 CALCIFEDIOL (42399) Comments: PATIENT WAS FASTINGPERFORMED BY: [facility]70 [facility]Kind[facility] [id number] Vitamin D, 25-Hydroxy 18.2 ng/mL (Abnormal) Range: 30.0-100.0 Comments: Vitamin D deficiency has been defined by the [place] ofMedicine and an Endocrine Society practice guideline as alevel of serum 25-OH vitamin D less than 20 ng/mL (1,2).The Endocrine Society went on to further define vitamin Dinsufficiency as a level between 21 and 29 ng/mL (2).1. IOM ([place] of Medicine). 2010. Dietary reference intakes for calcium and D. [place]: The National Academies Press.2. Reuben MF, Stephanie CLARK, Radha MILLIGAN, et al. Evaluation, treatment, and prevention of vitamin D deficiency: an Endocrine Society clinical practice guideline. JCEM. 2010; 96(7):1911-30. :21 LIPID PANEL (05253) Comments: PATIENT WAS FASTINGPERFORMED BY: Porch6370 [facility] [id number] VLDL Cholesterol Elvin VLDLCH mg/dL (Normal) Range: [...] PANEL, COMPREHENSIVE Comments: PATIENT WAS FASTINGPERFORMED BY: Porch6370 [facility] [id number] (89525) ALT (SGPT) 17 [iU]/L (Normal) Range: 0-44 [...] Glucose, Serum 102 mg/dL (Abnormal) Range: 65-99 25-Zjg-104840:21 CBC, PLATELETS & AUT DIFF Comments: PATIENT WAS FASTINGPERFORMED BY: [facility] Qjepsa3293 [facility] [id number] ([id number]) Immature Grans (Abs) 0.0 {x10E3/uL} (Normal) Range: [...] Microscopic Examination Comments: PATIENT WAS FASTINGPERFORMED BY: LabCoPalisades Medical CenterTjmmcs1154 [facility] [id number] Bacteria None seen (Normal) Mucus Threads Present (Normal) Epithelial Cells (non renal) 0-10 {/hpf} (Normal) Range: 0 - 10 RBC 0-2 {/hpf} (Normal) Range: 0 - 2 WBC 0-5 {/hpf} (Normal) Range: 0 - 5 :22 Basic Metabolic Profile (BMP) Comments: PLEASE [facility] [address]enh[address] [place], [place], [id number] GAP 6 (Normal) Range: 5-15 CO2 28.0 [...] Range: 70-110 :22 CBC W/Diff, Automated Comments: [facility] [address] [place], [place], [address] Absolute Lymph 2.03 {X10_3/ul} (Normal) Range: 0.83-4.51 [...] PLEASE ADD LIVER TO BLOOD FROM THIS [facility] [address] [place], [place], [address] D BILI 0.23 mg/dL (Normal) Range: 0.00-0.30 T BILI 1.60 mg/dL (Abnormal) Range: 0.20-1.00 ALT 27 U/L (Normal) Range: 12-78 ALK P 95 U/L (Normal) Range: 50-136 AST 17 U/L (Normal) Range: 15-37 GLOB 3.6 g/dL (Abnormal) Range: 2.3-3.5 ALB 3.9 g/dL (Normal) Range: 3.4-5.0 T PROT 7.5 g/dL (Normal) Range: 6.4-8.2 :22 Phosphorus Comments: PLEASE ADD LIVER TO BLOOD FROM THIS [facility] [address] [place], [place], [address] PHOS 2.5 mg/dL (Normal) Range: 2.5-4.9 :22 Prothrombin Time w/INR Comments: [facility] [address] [place], [place], [address] INR 1.1 (Normal) PROTIME 13.6 s (Normal) Range: 11.7-14.9 :49 URINALYSIS, W/ MICRO (69273) Comments: PATIENT WAS FASTINGPERFORMED BY: LabCoPalisades Medical CenterTueepe3248 [facility] [id number] Microscopic Examination See below: (Normal) Comments: Microscopic was indicated and was performed. Microscopic Examination MICRON (Normal) Comments: Microscopic follows if indicated. Nitrite, Urine Negative (Normal) Urobilinogen,Semi-Qn 0.2 mg/dL (Normal) Range: 0.2-1.0 Bilirubin Negative (Normal) Occult Blood Negative (Normal) Ketones Trace (Abnormal) Glucose Negative (Normal) Protein Negative (Normal) WBC Esterase Negative (Normal) Appearance Clear (Normal) Urine-Color Yellow (Normal) pH 6.0 (Normal) Range: 5.0-7.5 Specific [place] 1.030 (Normal) Range: 1.005-1.030 :49 CBC W/AUTO DIFF WBC Comments: PATIENT WAS FASTINGPERFORMED BY: SARA [facility]6370 [facility] [id number] Information: [id number] (60514) Immature Grans (Abs) 0.0 {x10E3/uL} (Normal) Range: [...] {x10E3/uL} (Normal) Range: 3.4-10.8 :49 LIPID PANEL (30788) Comments: PATIENT WAS FASTINGPERFORMED BY: SARA Epic![facility] CenterHobezs2942 [facility] [id number] LDL/HDL Ratio 4.5 {ratio_units} (Abnormal) Range: 0.0-3.6 [...] PANEL, COMPREHENSIVE Comments: PATIENT WAS FASTINGPERFORMED BY: [facility] Xhytze2059 [facility] [id number] (30638) ALT (SGPT) 15 [iU]/L (Normal) Range: 0-44 [...] Glucose, Serum 101 mg/dL (Abnormal) Range: 65-99 63-Ufo-871402:17 Serum Creatinine AND GFR Comments: [facility] [address]ro[address] [place], [address] EST GFR - AA 97 mL/min (Normal) Comments: GFR Calc EST GFR 80 mL/min (Normal) Comments: Non- GFR Calc CREAT,SERUM 0.98 mg/dL (Normal) Range: 0.70-1.30 Comments: The validity of the calculated GFR AND GFRAA in patients over70 years has not been determined. Clinical correlation isessential. :03 METABOLIC PANEL, Comments: PATIENT WAS FASTINGPERFORMED BY: LabCoPalisades Medical CenterCdtjxw8017 [facility] [id number] Information: [id number] COMPREHENSIVE (21022) ALT (SGPT) 22 [iU]/L (Normal) Range: 0-44 [...] (PROSTATE SPECIFIC Comments: PATIENT WAS FASTINGPERFORMED BY: [facility]6370 [facility] [id number] ANTIGEN) (V76.44) Prostate Specific Ag, 4.5 ng/mL (Abnormal) Range: 0.0-4.0 Serum Comments: [employer] ECLIA methodology. .According to the [place] Urological Association, Serum PSA shoulddecrease and remain at undetectable levels after radicalprostatectomy. The AUA defines biochemical recurrence as an initialPSA value 0.2 ng/mL or greater followed by a subsequent confirmatoryPSA value 0.2 ng/mL or greater.Values obtained with d ifferent assay methods or kits cannot be usedinterchangeably. Results cannot be interpreted as absolute evidenceof the presence or absence of malignant disease. 79-Uba-358581:38 CBC-Complete Blood Cnt No Diff Comments: [facility] [address] [place], [place], [address] MPV 10.0 fL (Normal) Range: 6.2-12.0 PLT [...] Range: 4.4-11.0 :38 Comprehensive Metabolic Profil Comments: [facility] [address] [place], [place], [address] GAP 7 (Normal) Range: 5-15 CO2 27.0 [...] Range: 70-110 :38 Partial Thromboplast Time Comments: [facility] Busnoxwjg[address] [place], [place], [address] PTT 34.2 s (Normal) Range: 24.1-36.2 :38 Prothrombin Time w/INR Comments: [facility] [address] [place], [address] INR 1.1 (Normal) PROTIME 14.0 s (Normal) Range: 11.7-14.9 :47 CBC-Complete Blood Cnt No Diff Comments: [facility] Buuwqkekez[address] [place], [place], [address] MPV 10.4 fL (Normal) Range: 6.2-12.0 PLT [...] Range: 4.4-11.0 :47 Comprehensive Metabolic Profil Comments: [facility] [address] [place], [place], [address] GAP 7 (Normal) Range: 5-15 CO2 28.0 [...] Range: 70-110 :47 Partial Thromboplast Time Comments: [facility] [address] [place], [place], [address] PTT 35.1 s (Normal) Range: 24.1-36.2 :47 Prothrombin Time w/INR Comments: [facility] Or[address]urlnnpf[address] [facility] [place], [place], [address] INR 1.0 (Normal) PROTIME 13.1 s (Normal) Range: 11.7-14.9 :23 CBC W/Diff, Automated Comments: Test performed at:[facility] [address] [place] [address] Absolute Lymph 1.72 {X10_3/ul} (Normal) [...] 07-Apr-20158:23 Comprehensive Metabolic Profil Comments: Test performed at:[facility] [address] [place] [address] GAP 10 (Normal) Range: 5-15 CO2 26.0 [...] Comments: Please note revised CREATININE reference range gyovcilck53/22/2015. BUN 12 mg/dL (Normal) Range: 7-18 GLU 132 mg/dL (Abnormal) Range: 70-110 Comments: Fasting Glucose result greater than or equal to 126 mg/dLsuggests DIABETES MELLITUS per A.D.A. criteria. 07-Apr-20158:23 Prothrombin Time w/INR Comments: Test performed at:[facility] Kleybliupf[address] [facility] [place] [address] INR 1.0 (Normal) PROTIME 13.7 s (Normal) Range: 11.7-14.9 3-Kln-794175:25 AFP, Tumor Marker Comments: Is Patient ? NTest performed at:[facility] [address] [facility] [address] [place] [address] AFP TUMOR 2253 578.5 ng/mL (Abnormal) Range: 0.0-8.3 Comments: Melodie ECLIA methodologyPerformed at: [facility] [employer] [id number] Director: Toy Walls MD, Phone: [phone] at: [address] [id number] Director: Lalo Murphy PhD, Phone: [phone] 9-Ywf-871330:25 Hepatitis B C Genotype Comments: Is Patient ? NTest performed at:[facility] [address] [place] [address] COMMENT Comment (Normal) Comments: This test was developed and its performance characteristicsdetermined by [employer]. It has not been cleared or approvedby [...] HEP C GENOTYPE Test not performed (Normal) 8-Vpa-387589:25 Hepatitis C,RNA PCR Viral Load Comments: Is Patient ? NTest performed at:[facility] [address]fogv[address] [place] [address] TEST INFO: Comment (Normal) Comments: The quantitative [...] Not Detected {IU/mL} (Normal) :14 LIPID PANEL (91742) Comments: PATIENT WAS FASTINGPERFORMED BY: [employer] [facility] [id number]; non-emergent till apt LDL/HDL Ratio 6.1 {ratio_units} [...] METABOLIC PANEL, Comments: PATIENT WAS FASTINGPERFORMED BY: Avanzitlin6370 [facility] [id number] Information: [id number] COMPREHENSIVE (01237) ALT (SGPT) 27 [iU]/L (Normal) Range: 0-44 [...] Glucose, Serum 98 mg/dL (Normal) Range: 65-99 93-Mgu-90772:04 EBV Panel (01288) Comments: PATIENT NOT FASTINGPERFORMED BY: [facility]6370 [facility] [id number] Information: [id number] Interpretation: SPRCS (Normal) Comments: EBV Interpretation Chart [...] Microscopic Examination Comments: PATIENT WAS FASTINGPERFORMED BY: [facility]HSENSORSKindred [facility] [id number] Bacteria None seen (Normal) Mucus Threads Present (Normal) Epithelial Cells (non renal) None seen {/hpf} (Normal) Range: 0 - 10 RBC 0-2 {/hpf} (Normal) Range: 0 - 2 WBC 0-5 {/hpf} (Normal) Range: 0 - 5 :06 PSA (PROSTATE SPECIFIC Comments: PATIENT WAS FASTINGPERFORMED BY: [facility] [id number] ANTIGEN) (V76.44) Prostate Specific Ag, 3.8 ng/mL (Normal) Range: 0.0-4.0 Serum Comments: Melodie ECLIA methodology. .According to the [place] Urological Association, Serum PSA shoulddecrease and remain [...] of malignant disease. :06 URINALYSIS, W/ MICRO (86109) Comments: PATIENT WAS FASTINGPERFORMED BY: PATHSENSORSKindred [facility] [id number] Microscopic Examination See below: (Normal) Comments: Microscopic was indicated and was performed. Microscopic Examination MICRON (Normal) Comments: Microscopic follows if indicated. Nitrite, Urine Negative (Normal) Urobilinogen,Semi-Qn 0.2 mg/dL (Normal) Range: 0.0-1.9 Bilirubin Negative (Normal) Occult Blood Negative (Normal) Ketones Negative (Normal) Glucose Negative (Normal) Protein Negative (Normal) WBC Esterase Negative (Normal) Appearance Clear (Normal) Urine-Color Yellow (Normal) pH 6.5 (Normal) Range: 5.0-7.5 Specific [place] 1.019 (Normal) Range: 1.005-1.030 07-Apr-20148:06 CBC WITH MANUAL DIFF Comments: PATIENT WAS FASTINGPERFORMED BY: LabCoPalisades Medical CenterWmlgut3530 [facility] [id number] Information: [id number] (14487) Immature Grans (Abs) 0.0 {x10E3/uL} (Normal) Range: [...] PANEL, COMPREHENSIVE Comments: PATIENT WAS FASTINGPERFORMED BY: LabCoPalisades Medical CenterYevokl4241 [facility] [id number] (85947) ALT (SGPT) 21 [iU]/L (Normal) Range: 0-44 [...] mg/dL (Normal) Range: 65-99 :06 LIPID PANEL (83215) Comments: PATIENT WAS FASTINGPERFORMED BY: [employer] [facility] [id number] LDL/HDL Ratio 4.4 {ratio_units} (Abnormal) Range: 0.0-3.6 LDL Cholesterol Calc 122 mg/dL (Abnormal) Range: 0-99 VLDL Cholesterol Elvin 43 mg/dL (Abnormal) Range: 5-40 HDL Cholesterol 28 mg/dL (Abnormal) Comments: According to ATP-III Guidelines, HDL-C >59 mg/dL is considered anegative risk factor for CHD. Triglycerides 216 mg/dL (Abnormal) Range: 0-149 Cholesterol, Total 193 mg/dL (Normal) Range: 100-199 9-Qjm-494444:41 VARICELLA-ZOSTER ANTBODY Comments: PATIENT NOT FASTINGPERFORMED BY: [employer] [facility] [id number] Information: [id number] (42608) Varicella Zoster IgG 2.01 {index} (Normal) Comments: Nonimmune <0.91 Equivocal 0.91 - 1.09 Immune >1.09 02-Apr-20138:37 Microscopic Examination Comments: PATIENT WAS FASTINGPERFORMED BY: [employer] [facility] [id number] Bacteria None seen (Normal) Mucus Threads Present (Normal) Epithelial Cells (non renal) 0-10 {/hpf} (Normal) Range: 0 - 10 RBC 0-3 {/hpf} (Normal) Range: 0 - 3 WBC 0-5 {/hpf} (Normal) Range: 0 - 5 :37 URINALYSIS, W/ MICRO (57560) Comments: PATIENT WAS FASTINGPERFORMED BY: ScoopinionPalisades Medical CenterUghxci9891 [facility] [id number] Microscopic Examination See below: (Normal) Microscopic Examination MICRON (Normal) Comments: Microscopic follows if indicated. Nitrite, Urine Negative (Normal) Urobilinogen,Semi-Qn 1.0 mg/dL (Normal) Range: 0.0-1.9 Bilirubin Negative (Normal) Occult Blood Negative (Normal) Ketones Negative (Normal) Glucose Negative (Normal) Protein Negative (Normal) WBC Esterase Negative (Normal) Appearance Clear (Normal) Urine-Color Yellow (Normal) pH 6.0 (Normal) Range: 5.0-7.5 Specific [place] 1.021 (Normal) Range: 1.005-1.030 :37 CBC WITH MANUAL DIFF Comments: PATIENT WAS FASTINGPERFORMED BY: ScoopinionPalisades Medical CenterLjnuic4762 [facility] [id number] Information: [id number] (51315) Immature Grans (Abs) 0.0 {x10E3/uL} (Normal) Range: [...] (PROSTATE SPECIFIC Comments: PATIENT WAS FASTINGPERFORMED BY: [facility]6370 [facility] [id number] ANTIGEN) (V76.44) Prostate Specific Ag, 3.6 ng/mL (Normal) Range: 0.0-4.0 Serum Comments: [employer] ECLIA methodology. .According to the [place] Urological Association, Serum PSA shoulddecrease and remain at undetectable levels after radicalprostatectomy. The AUA defines biochemical recurrence as an initialPSA value 0.2 ng/mL or greater followed by a subsequent confirmatoryPSA value 0.2 ng/mL or greater.Values obtained with d ifferent assay methods or kits cannot be usedinterchangeably. Results cannot be interpreted as absolute evidenceof the presence or absence of malignant disease. :37 LIPID PANEL (01938) Comments: PATIENT WAS FASTINGPERFORMED BY: Epic![facility] CenterJtvuvu2120 [facility] [id number] LDL/HDL Ratio 4.8 {ratio_units} (Abnormal) Range: 0.0-3.6 [...] PANEL, COMPREHENSIVE Comments: PATIENT WAS FASTINGPERFORMED BY: [facility] Bebfbz7163 [facility] [id number] (45852) ALT (SGPT) 19 [iU]/L (Normal) Range: 0-44 [...] Glucose, Serum 94 mg/dL (Normal) Range: 65-99 80-Vhc-097608:43 PPD (88615) Comments: PT RECEIVED THIS AT WORK SKIN TEST INTRADERMAL TB negatvie (Normal) Comments: pt received this at work :33 LIPID PANEL (49022) Comments: PATIENT WAS FASTINGPERFORMED BY: [employer]ir [employer]ylin6370 [facility] [id number] LDL/HDL Ratio 3.8 {ratio_units} (Abnormal) Range: 0.0-3.6 [...] METABOLIC PANEL, Comments: PATIENT WAS FASTINGPERFORMED BY: Tamir [employer]ylin6370 [facility] [id number] Information: [id number] COMPREHENSIVE (52523) ALT (SGPT) 21 [iU]/L (Normal) Range: 0-55 [...] CHOL 193 mg/dL (Normal) Comments: <200 mg/dL Bgwqistcq487-376 mg/dL Borderline>240 mg/dL High Risk :27 BMP [...] Indication: Prostate cancer Prostate cancer : Reviewed [employer] Dean Letter Indication: Prostate cancer Hypertensive heart disease [...] Indication: Mixed hyperlipidemia Prostate cancer : Reviewed [employer] Dean Letter Indication: Prostate cancer Hypertensive heart disease without heart failure : HTN/CAD Red Flags Indication: Hypertensive heart disease without heart failure Mixed hyperlipidemia : Cholesterol mgmt Indication: Mixed hyperlipidemia Mixed hyperlipidemia : Follow up in 6 months Indication: Mixed hyperlipidemia Prostate cancer : Reviewed [employer] Dean Letter- urologist - dr Miller Indication: Prostate cancer Hypertensive heart disease without heart failure : HTN/CAD Red Flags Indication: Hypertensive heart disease without heart failure Mixed hyperlipidemia : Cholesterol mgmt Indication: Mixed hyperlipidemia Hepatocellular carcinoma : Reviewed Lab Indication: Hepatocellular carcinoma Encounter for screening for malignant neoplasm of prostate (Renamed from Screening for prostate cancer) : Reviewed [employer] Dean Letter Indication: Encounter for screening for malignant [...] without heart failure Prostate cancer : Reviewed [employer] Dean Letter- Dr Miller Indication: Prostate cancer Mixed hyperlipidemia : Cholesterol mgmt Indication: Mixed hyperlipidemia Hepatocellular carcinoma : Reviewed Lab: nornmal alpha feta prot Indication: Hepatocellular carcinoma Hepatocellular carcinoma : Reviewed [employer] Dean Letter Indication: Hepatocellular carcinoma Hepatocellular carcinoma : Reviewed Diagnostic Tests Indication: Hepatocellular carcinoma Prostate cancer : Reviewed Lab Indication: Prostate cancer Prostate cancer : Reviewed [employer] Dean Letter Indication: Prostate cancer Prostate cancer : [...] Leg swelling Depression : follow up with [facility] 10 days Indication: Depression Sinusitis, acute [...] disease without heart failure Planned Observations TSH (74750)Indication: Mixed hyperlipidemia On: Request URINALYSIS, W/ MICRO (14501)Indication: Hypertensive heart disease without heart failure On: Request MICROALBUMIN: CREATININE RATIO (99544) AND (57676)Indication: Hypertensive heart disease without heart failure On: Request METABOLIC PANEL, COMPREHENSIVE (85194)Indication: Hypertensive heart disease without heart failure On: Request CBC W/AUTO DIFF WBC (75279)Indication: Hypertensive heart disease without heart failure On: Request LIPOPROTEIN, BLD, BY NMR (69326)Indication: Mixed hyperlipidemia On: 80-Afw-21186:01 Request CALCIFEDIOL (16308)Indication: Vitamin D deficiency On: :01 Request LIPID PANEL (99532)Indication: Mixed hyperlipidemia On: :07 Request METABOLIC PANEL, COMPREHENSIVE (42813)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 On: :07 Request CBC W/AUTO DIFF WBC (12432)Indication: Lymphocytosis On: :07 Request LIPID PANEL (27232)Indication: Hypertensive heart disease without heart failure On: 9-Adn-374435:39 Request METABOLIC PANEL, COMPREHENSIVE (31062)Indication: Hypertensive heart disease without heart failure On: 7-Nsp-534935:39 Request METABOLIC PANEL, COMPREHENSIVE (64694)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 On: :08 Request HEPATIC FUNCTION PANEL (54548)Indication: Mixed hyperlipidemia On: 84-Gan-501802:53 Request LIPID PANEL (47116)Indication: Mixed hyperlipidemia On: 31-Ixy-940114:52 Request METABOLIC PANEL, COMPREHENSIVE (61545)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 On: :09 Request LIPID PANEL (38057)Indication: Mixed hyperlipidemia On: :09 Request METABOLIC PANEL, COMPREHENSIVE (11625)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 On: 79-Ldr-300060:55 Request LIPID PANEL (67971)Indication: Mixed hyperlipidemia On: 40-Tyw-295974:54 Request CBC WITH MANUAL DIFF (57219) On: 69-Oze-161133:57 Request Electrolyte Panel (87498) On: 74-Xfp-542473:57 Request LIPID PANEL (02190)Indication: Mixed hyperlipidemia On: :03 Request METABOLIC PANEL, COMPREHENSIVE (68967)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 On: 98-Agt-117467:03 Request CBC WITH MANUAL DIFF (64277)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 On: :03 Request METABOLIC PANEL, COMPREHENSIVE (41771)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 On: 46-Yaq-287161:05 Request HEPATIC FUNCTION PANEL (58332)Indication: Mixed hyperlipidemia On: 57-Eui-205957:05 Request Comments: 3 mos LIPID PANEL (13700)Indication: Mixed hyperlipidemia On: 60-Nkr-107248:05 Request Planned Encounters Medical; Walk Assessment - On: 19-Jun-2018 15:15 [facility] Visit, Nurse Medical; Hospital Follow Up - On: 28-Jun-2018 12:15 [facility] Swetha Pedersen DO, DO, Kathleen Planned Procedures ELECTROCARDIOGRAM, COMPLETE (ECG) On: 20-Nov-2017 Intent (68760)By: Robyn Vergara Comments: nsr no acute cgh Flu Vaccine (Quadrivalent) 53126Zt: On: 22-May-2017 Intent Swetha Pedersen DO, DO, Comments: QUAD flu shotlot number: [id number]: 10/2017L 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 Swetha ABQP-[facility] FOR On: 16-Jan-2017 Intent OBESITY, 15 MINUTES (G0447)By: Swetha Pedersen DO, DO, Kathleen ELECTROCARDIOGRAM, COMPLETE (ECG) On: 21-Nov-2016 Intent (84351)By: Swetha Pedersen DO Comments: nsr no acute chg Swetha [facility] INFLUENZA VIRUS On: 27-Apr-2015 Intent VACCINE ([id number])By: Lisa Potter DO FLU VAC, SPLIT, >3 YEARS, INTRAMUSC On: 27-Apr-2015 Intent ([id number])By: Lisa Potter DO Comments: Lot:[id number]:12/13Dose:0.5mLRoute:IMSite:L DltdGiven By:AMBROSIO signed EKG ([id number])By: Lisa Potter DO On: 13-Oct-2014 Intent Comments: ekg showed normal sinus rhythym, normal axis, no acute st/t wave changes lvh IMMUNIZ ADMNIN, 1 VAC, SNGL/COMBO On: 07-Oct-2013 Intent ([id number])By: Lisa Potter DO Comments: Lot: [id number]: [id number]: 0.5mlRoute: IMSite: L detoidGiven by: ALYSSA Sotelo PNEUM VAC ADLT/IMUMNOSPR, SBC/INTRM On: 07-Oct-2013 Intent ([id number])By: Lisa Potter DO EKG ([id number])By: Lisa Potter DO On: 07-Oct-2013 Intent Comments: ekg- sinus with left axis and lvh no change compared to prvious FLU VAC, SPLIT, >3 YEARS, INTRAMUSC On: 10-Oct-2011 Intent ([id number])By: Mila Osullivan Comments: received 04/2011 TDAP VACCINE >7 IM ([id number])By: Shi, On: 10-Oct-2011 Intent Mila Comments: declines Eprescribed prescriptions ([id number])By: On: 01-Apr-2011 Intent Lisa Potter DO EKG ([id number])By: Mila Osullivan On: 12-Oct-2009 Intent EKG ([id number])By: Lisa Potter DO On: 25-Sep-2006 Intent Comments: [...] Advance Directives Name Dates Details Immunization Registry [place] - Effective on Effective: 22-May-201705/22/2017. Expiration date [...] patient does not have durable power of senior attorney or living will. The patient has [...] patient does not have durable power of senior attorney or living will. 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
--- OUTSIDE RECORDS SUMMARY | 2018-08-26 09:55 | XMS RPT_ITS ---
:1945 Author Organization [facility] Support Name Relationship Address Phone [address] + [place] [address] R Unknown Unavailable Unavailable [address] + [place] [address] R Unknown Unavailable Unavailable [address] + [place] [address] R Unknown Unavailable Unavailable [address] + [place] [address] R Unknown Unavailable Unavailable [address] + [place] [address] R Unknown Unavailable Unavailable [address] + [place] [address] R Unknown Unavailable Unavailable [address] + [place] [address] R Unknown Unavailable Unavailable [address] + [place] [address] R Unknown Unavailable Unavailable [address] + [place] [address] R Unknown Unavailable Unavailable [address] + [place] [address] R Unknown Unavailable Unavailable [address] + [place] [address] R Unknown Unavailable Unavailable [facility] Unknown Unavailable + [address] + [place] [address] R Unknown Unavailable Unavailable [address] + [place] [address] R Unknown Unavailable Unavailable Care Team Providers Name Role Phone Slava, Swetha Referring Unavailable Slava, Swetha Primary Care Unavailable Albert Tomas Attending Unavailable Slava DO, Swetha Attending Unavailable Fast DO, Lisa Steen Referring Unavailable Slava DO, Swetha Consulting Unavailable Paul, Isidoro Santillan Attending Unavailable Paul, Isidoro Santillan Referring Unavailable Slava, Swetha Primary Care Unavailable Slava, Swetha Primary Care Unavailable Bobby Walton Attending Unavailable Lsava, Swetha Primary Care Unavailable Kittoe, Jose Admitting Unavailable Jopperi, Jose Attending Unavailable Kittoe, Jose Admitting Unavailable Kittoe, Jose Attending Unavailable Slava, Swetha Primary Care Unavailable Kittoe, Jose Consulting Unavailable Kittoe, Jose Admitting Unavailable Kittoe, Jose Attending Unavailable Slava, Swetha Primary Care Unavailable Kittoe, Jose Consulting Unavailable Kittoe, Jose Admitting Unavailable Kittoe, Jose Attending Unavailable Slava, Swetha Primary Care Unavailable Kittoe, Jose Consulting Unavailable Kittoe, Jose Admitting Unavailable Jopperi, Jose Attending Unavailable Slava, Swetha Primary Care Unavailable Jopperi, Jose Consulting Unavailable Kittoe, Jose Admitting Unavailable Jopperi, Jose Attending Unavailable Slava, Swetha Primary Care Unavailable Jopperi, Jose Consulting Unavailable Kittoe, Jose Admitting Unavailable Jopperi, Jose Attending Unavailable Slava, Swetha Primary Care Unavailable Jopperi, Jose Consulting Unavailable Jopperi, Jose Attending Unavailable Jopperi, Jose Referring Unavailable Slava, Swetha Primary Care Unavailable Quintin Patel Attending Unavailable Kittoe, Jose Referring Unavailable Jopperi, Jose Attending Unavailable Jopperi, Jose Referring Unavailable Slava, Swetha Primary Care Unavailable PaulIsidoro Consulting Unavailable Slava, Swetha Attending Unavailable Slava, Swetha Referring Unavailable Slava, Swetha Primary Care Unavailable Purpose Purpose PROBLEMS PROBLEMS DATE TYPE CONDITION / CODE ATTENDING STATUS SOURCE 07/10/2018 Unknown J90 - Pleural Slava, Active [place] effusion, not Swetha [facility] elsewhere [facility] classified / Repository J90(ICD-10) 06/19/2018 Unknown 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 / Hospital C61(ICD-10) Repository 05/31/2018 Unknown I36.1 - Jorge, Quintin Active [place] [facility] tricuspid (valve) Hospital insufficiency / Repository I36.1(ICD-10) 04/21/2018 Admitting Unspecified Pozsgay, Albert Active [facility] Diagnosis abdominal pain / System R10.9(ICD-10) Repository 04/21/2018 Admitting Sepsis, unspecified Pozsgay, Albert Active [facility] Diagnosis organism / System A41.9(ICD-10) Repository 04/21/2018 Admitting Peritonitis, Pozsgay, Albert Active [facility] Diagnosis unspecified / System K65.9(ICD-10) Repository 04/21/2018 Admitting Perforation of Pozsgay, Albert Active [facility] Diagnosis intestine System (nontraumatic) / Repository K63.1(ICD-10) 04/21/2018 Admitting Unil inguinal Pozsgay, Albert Active [facility] Diagnosis hernia, w obst, w/o System gangr, not spcf as Repository recur / K40.30(ICD-10) 04/21/2018 Admitting Abscess of Pozsgay, Albert Active [facility] Diagnosis intestine / System K63.0(ICD-10) Repository 04/21/2018 Admitting Postproc intestinal Pozsgay, Albert Active [facility] Diagnosis obst, unsp as to System partial versus Repository complete / K91.30(ICD-10) 04/21/2018 Admitting Pressure ulcer of Pozsgay, Albert Active [facility] Diagnosis sacral region, System stage 2 / Repository L89.152(ICD-10) 04/21/2018 Admitting Vascular disorders Pozsgay, Albert Active [facility] Diagnosis of male genital System organs / Repository N50.1(ICD-10) 04/21/2018 Admitting Orchitis / Pozsgay, Albert Active [facility] Diagnosis N45.2(ICD-10) System Repository 04/21/2018 Admitting Encounter for Pozsgay, Albert Active [facility] Diagnosis immunization / System Z23(ICD-10) Repository 04/21/2018 Admitting Anuria and oliguria Pozsgay, Albert Active [facility] Diagnosis / R34(ICD-10) System Repository 04/21/2018 Admitting Umbilical hernia Pozsgay, Albert Active [facility] Diagnosis without obstruction System or gangrene / Repository K42.9(ICD-10) 04/21/2018 Admitting Essential (primary) Albert Tomas Active [facility] Diagnosis hypertension / System I10(ICD-10) Repository 04/21/2018 Admitting alf (current) Albert Tomas Active [facility] Diagnosis use of aspirin / System Z79.82(ICD-10) Repository PROCEDURES PROCEDURES No Procedure Records FoundVITAL SIGNS VITAL SIGNS No Vital Signs Records FoundRESULTS RESULTS SPECIAL CXR Observed: 07/10/2018 Status: F Source: [place] (OBL/DECUB/A/L) 9:53 AM [facility] Imaging Services [address] [facility] [place] [place] [address] Special CXR (Obl/Decub/A/L) MR#: [id number] Acct: [id number] Name: LUCAS EAST Rep #: [id number] : 1945 M 73 From: Anson Chua MD PCP: Swetha Aleman DO Status: REG CLI Study: Special CXR (Obl/Decub/A/L) Date of Exam: 07/10/18 Exam# [id number] Ordering Dr: Swetha Aleman DO STUDY: X-RAY CHEST REASON FOR EXAM: Male, [...] Anson Chua, at 17:46 EST Tel , Service support , CC: Swetha Aleman DO Vice President Of Operations: Signed CHEST PA AND LATERAL Observed: 07/10/2018 Status: F Source: [place] 9:51 AM [facility] Imaging Services [address] [place] [address] Chest PA and Lateral MR#: [id number] Acct: [id number] Name: ROCAELLUCAS CALZADA Nurys Rep #: [id number] : 1945 M 73 From: Anson Chua MD PCP: Swetha Aleman DO Status: REG CLI Study: Chest PA and Lateral Date of Exam: 07/10/18 Exam# [id number] Ordering Dr: Swetha Aleman DO STUDY: X-RAY CHEST REASON FOR EXAM: Male, [...] at 17:45 EST Tel , Service support , CC: Swetha Aleman DO Vice President Of Operations: Signed SPECIAL CXR Observed: 07/10/2018 Status: F Source: [place] (OBL/DECUB/A/L) 9:51 AM [facility] Imaging Services [address] [place] [address] Special CXR (Obl/Decub/A/L) MR#: [id number] Acct: [id number] Name: LUCAS EAST Rep #: [id number] : 1945 M 73 From: Anson Chua MD PCP: Swetha Aleman DO Status: REG CLI Study: Special CXR (Obl/Decub/A/L) Date of Exam: 07/10/18 Exam# [id number] Ordering Dr: Swetha Aleman DO STUDY: X-RAY CHEST REASON FOR EXAM: Male, [...] at 17:45 EST Tel , Service support , CC: Swetha Aleman DO Vice President Of Operations: Signed PSA,TOTAL- DIAGNOSTIC Collected: 06/19/2018 Status: F Source: [place] 2:26 PM [facility] TYPE CODE TESTS RESULT OUT OF RANGE REFERENCE UNITS LAB L501.9940 0.0-4.0 ng/mL PSA, Normal DIAGNOSTIC 3.71 Result Comment: This test was performed using the TPSA assay method for the [employer] chemistry system. Values obtained with different assay methods cannot be used interchangably. When changing PSA assays in the course of monitoring a patient, additional sequential testing should be carried out to confirm baseline values. Performed By: #### L501.9940 #### [facility] [address] [place], [address] CHEST PA AND LATERAL Observed: 06/19/2018 Status: F Source: [place] 2:25 PM [facility] Imaging Services [address] [place] [address] Chest PA and Lateral MR#: [id number] Acct: [id number] Name: LUCAS EAST Rep #: [id number] : 1945 M 73 From: Jamar Dong MD PCP: Swetha Aleman DO Status: REG CLI Study: Chest PA and Lateral Date of Exam: 06/19/18 Exam# [id number] Ordering Dr: Jose Tovar DO STUDY: X-RAY CHEST REASON FOR EXAM: Male, 73 years old. Patient states pleural effusion, follow-up TECHNIQUE: PA and lateral views of the chest on 3 images. COMPARISON: PA and lateral chest x-ray May 16, 2018 FINDINGS: There is a small posterolateral right pleural effusion, improved from previous exam. Aeration at the lung bases also improved, with residual linear subsegmental atelectasis noted in the right base. Normal size heart. Normal mediastinum and jason. Normal visualized pulmonary arteries. Normal visualized aortic arch and descending thoracic aorta. There are stable multilevel degenerative changes of the visualized thoracic spine. 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 There is no demonstrated abnormality of the visualized soft tissue structures of the upper abdomen. RAD/Chest PA and Lateral IMPRESSION: Small right pleural effusion and bibasilar aeration improved since May 16, 2018. Electronically Signed: Jose Dong MD at 19:44 EST , Service support , CC: Jose Tovar DO; Swetha Aleman DO Vice President Of Operations: Signed BASIC METABOLIC Collected: 05/25/2018 Status: F Source: [place] PROFILE (BMP) 1:33 PM [facility] Order Comment: Send Results To: Swetha Aleman Reason for Laboratory Test hypokalemia TYPE CODE TESTS RESULT OUT OF RANGE REFERENCE UNITS LAB L501.0100 74-106 mg/dL Normal GLU 89 Result Comment: Please note revised GLUCOSE reference range effective 2017. LAB L501.1000 7-18 mg/dL High BUN 20 LAB L501.1100 0.70-1.30 mg/dL Normal CREAT,SERUM 0.87 Result Comment: The validity of the calculated GFR AND GFRAA in patients over 70 years has not been determined. Clinical correlation is essential. LAB L501.1110 >60 mL/min Normal EST GFR 92 Result Comment: Non- GFR Calc LAB L501.1115 >60 mL/min Normal EST GFR - AA 111 Result Comment: GFR Calc LAB L501.1300 10-20 RATIO High BUN/CRE 23.0 LAB L501.2200 8.5-10.1 mg/dL CA Normal 9.2 LAB L501.5300 136-145 mmol/L NA Normal 137 LAB L501.5600 3.5-5.1 mmol/L K Normal 4.5 LAB L501.5900 98-107 mmol/L CL Normal 98 LAB L501.6100 21.0-32.0 mmol/L Normal CO2 28.0 LAB L501.6200 5-15 Normal GAP 11 Performed By: #### L500.2500 #### [facility] [address] [facility] [place], [address] DISCHARGE SUMMARY Observed: 05/16/2018 Status: F Source: [place] 1:45 PM [facility] Medical Records Department [address] [place] [address] Discharge Summary 05/16/18 1341 MR#: [id number] Acct: [id number] Name: LUCAS EAST Rep #: [id number] : 1945 73 From: Jose Tovar DO PCP: Swetha Aleman DO Status: ADM IN Y Location: [place] [address]-1 Discharge Date and Diagnosis - Problem List Patient Problems: Active and Suspected Problems Pleural effusion (Acute) Heart failure with preserved ejection fraction (Acute) Date of Admission: 05/11/18 Date of Discharge: 05/16/18 - Primary Discharge Diagnosis Active and Suspected Problems Pleural effusion (Acute) Heart failure with preserved ejection fraction (Acute) 1. acute HFpEF * EF 65% * has diuresed well since he has been here, though his weights do not reflect it. * I suspect patient received a lot of fluids during his 12 day stay at [facility], which at one point he was in the ICU ([facility] unable to be accessed at this time) * Continue with lasix, lisinopril * records from [facility] were reviewed. Records were scant and not useful: no notes, Is/Os, etc. 2. Presumed gram-negative pneumonia * ruled out * work up here has been unremarkable * culture results have been negative * antibiotics DC'd 05/14 * no leukocytosis * did have a low-grade temps * temp of 38.4 today. 3. Pleural effusion * transudative * underwent thoracentesis 05/14 and drained 1420 cc * likely due to fluids he received during his long hospitalization at [facility] (12 day hospitalization and 4 of those days were in the ICU) * continue with lasix * recheck CXR on 05/16 * will need follow up CXR in 4-6 weeks after discharge. 4. s/p Ventral hernia repair * per patient, the surgeon said it was more complicated than he anticipated, requiring a partial colectomy * per wound care pictures: wound healing well. * reviewed records from [facility], and was unfortunately lacking. No op-reports, progress notes, etc. * patient to follow up with Dr. Tomas 05/23 - Secondary Discharge Diagnosis Chronic Problems Essential hypertension (Chronic) Dyslipidemia (Chronic) Hospital Course and Treatment Imaging Results: 05/16/18 11:00 Chest PA and Lateral [RAD] Clinical Impression(s) from Imaging Studies Acute Abdomen Series 05/11/18 13:30 Chest X-Ray 05/12/18 09:17 IMPRESSION: Large right pleural effusion. Electronically Signed: Scottie Abbasi MD at 17:55 EDT , Service support , Thoracentesis Ultrasound 05/14/18 07:41 IMPRESSION: Ultrasound-guided right thoracentesis. Electronically Signed: Iván Paige MD at 12:53 EDT Tel [phone], Service support , Chest X-Ray 05/14/18 10:15 IMPRESSION: Status post right thoracentesis. No evidence of pneumothorax. Findings suggestive of mild bibasilar linear atelectasis. Electronically Signed: Iván Paige MD at 13:48 EDT Tel [phone], Service support , Chest X-Ray 05/16/18 11:00 IMPRESSION: Small right pleural effusion. Increased markings at both lung bases. This is suggestive of atelectasis. Electronically Signed: Iván Paige MD at 13:24 EDT Tel [phone], Service support , Consultations 05/12/18 10:38 Consult: Onc/Wound/press tender incendiary grenade Routine Comment: Operations: None Procedures: Thoracentesis, Transthoracic echo Summary of Care Provided: The patient is a 73 year old M resents with cough and shortness of breath. Chest x-ray was consistent with pulmonary edema as well as pleural effusion. There was some concern for pneumonia given patient's recent hospitalization for ventral hernia repair. Pneumonia workup was unremarkable so antibiotics were discontinued on the and patient continued to do well. Patient was diuresed with Lasix and also underwent a thoracentesis on the that removed 1420 cc. The fluid was analyzed and was deemed to be transudate of. Is feeling that the patient's pleural effusion and pulmonary edema is due to heart failure. Patient's ejection fraction was 60%.-Patient underwent heart failure due to copious amounts of fluid the patient received during his hospitalization for a ventral hernia repair that was more complex and initially thought. Patient stated that he had a 12-day hospital stay in for for which were in the ICU. Presumably, the patient received a lot of fluids during that time I am, however, I do not have objective data to substantiate that. We did request records from [facility], however records were only showed some lab work but did not reveal notes, progress notes etc. Patient will be discharged today and he will be on Lasix 40 mg daily as well as potassium replacement while he is on Lasix. Patient will require BMP in about a week's time to see how his creatinine and potassium are doing. For the patient's pulmonary edema and pleural effusion, patient will require a chest x-ray in about 4 weeks. Patient has a follow-up appointment already scheduled with his surgeon on the . Patient did drop down to 86% on room air with ambulation, therefore, patient will require oxygen at 2 L/min with activity. [] Patient Problems: Active and Suspected Problems Pleural effusion (Acute) Heart failure with preserved ejection fraction (Acute) - Physical Exam Vital Signs Temp Pulse Resp BP Pulse Ox 36.9 C 64 18 105/48 L 96 05/16/18 10:02 05/16/18 10:02 05/16/18 11:53 05/16/18 10:02 05/16/18 11:52 Oxygen Flow Rate (L/min) [ 2 AMBULATION with Oxygen] Oxygen Flow Rate (L/min) 2 Oxygen Delivery Method Nasal Cannula Weight: 103.8 kg Body Mass Index (BMI) 29.3 Intake and Output for Last 24 Hours Intake Total 1433 / 1433 2514 / 2514 1140 / 1140 Output Total 2845 / 2845 250 / 250 725 / 725 Balance -1412 / -1412 2264 / 2264 415 / 415 Microbiology Past 72 Hours 05/14/18 10:00 Gram Stain - Final Fluid - Thoracentesis Fluid Body Fluid Culture - Preliminary Laboratory Tests Past 24 Hrs Sodium 134 L Potassium 3.7 Chloride 96 L Carbon Dioxide 29.0 Discharge Diet: 6 Cup Fluid Restriction, 2000 mg Sodium Diet Discharge Activity: Return to Normal Activity Weight Bearing Status: Weight bearing as tolerated Call your doctor if you observe: Fever of 101 or Higher, Shortness of breath, Fainting spells, Swelling in the ankles, Chest pain Home Medications: Medications to take at Discharge Aspirin [Aspirin, Baby] 81 mg PO DAILY@0800 04/20/18 Cholecalciferol (Vitamin D3) [Vitamin D3] 5,000 unit PO DAILY 04/20/18 Gemfibrozil [Lopid] 600 mg NG BIDAC 04/20/18 Multivitamin [Daily Multiple Vitamin] 1 each PO DAILY 04/20/18 Oxycodone HCl/Acetaminophen [Percocet 5-325] 1 - 2 tablet PO Q6H PRN PRN 05/11/18 Promethazine HCl 25 mg PO Q6H PRN 05/11/18 Albuterol Inhaler [Ventolin Hfa] 2 puff INHALATION Q4H PRN PRN #1 inhaler 05/16/18 Furosemide [Lasix] 40 mg PO DAILY #30 tablet 05/16/18 Lisinopril [Zestril] 5 mg PO BID #30 tablet 05/16/18 Potassium Chloride [K-Dur] 10 meq PO DAILY #30 tablet 05/16/18 Following Prescrptions Were Given to Patient: Albuterol Inhaler [Ventolin Hfa] 2 puff INHALATION Q4H PRN PRN #1 inhaler PRN Reason: Shortness Of Breath Furosemide [Lasix] 40 mg PO DAILY #30 tablet Potassium Chloride [K-Dur] 10 meq PO DAILY #30 tablet Lisinopril [Zestril] 5 mg PO BID #30 tablet Other Amb Orders: Chest PA and Lateral [RAD] Time Frame: 1 Month, Location: None Selected Basic Metabolic Profile (BMP) Time Frame: 1 Week, Location: Laboratory Primary Care Physician: Swetha Aleman DO [Primary Care Provider] - In 1 Week Please Follow Up With: Albert Tomas When: 05/23/18 Patient Instructions: Discharge Instructions for Thoracentesis Disposition: Home Minutes spent on discharge:: 36 Patient Condition:: Good Medical Necessity - Tobacco Use Smoking Status: Former smoker Meaningful Use Info Meaningful Use Diagnoses (Choose all that apply): CHF - CHF ROCKY/ARB ordered at discharge?: Yes Documented LVEF (%): 65 Code Visit Inpatient E AND M: [id number] Disch Hosp 05/16/18 1345 <Electronically signed by Jose Tovar DO> Date Jose Tovar DO Cosigner Signature (if applicable): Date CC: Jose Tovar DO; Swetha Aleman DO Signed DISCHARGE INSTRUCTION Observed: 05/16/2018 Status: F Source: [place] 1:41 PM [facility] Medical Records Department [address] [place] [address] Instructions for Home/Discharge Instructions 05/16/18 1337 MR#: [id number] Acct: [id number] Name: LUCAS EAST Rep #: [id number] : 1945 73 From: Jose Tovar DO PCP: Swetha Aleman DO Status: ADM IN - Discharge Diagnoses Current Active Problems: Current Active and Chronic Problems Pneumonia (Acute) Essential hypertension (Chronic) Dyslipidemia (Chronic) You will use the following diet at home:: Fluid restricted (specify 2000 mls, 1500 mls) - 1500 cc/day Your food should be the consistency of: Regular Discharge Activity: Return to Normal Activity Weight Bearing Status: Weight bearing as tolerated Call your doctor if you observe: Fever of 101 or Higher, Shortness of breath, Fainting spells, Swelling in the ankles, Chest pain Instructions: Discharge Instructions for Thoracentesis Additional Instructions: Daily weights. Notify physician if weight increases by 2 pounds in 1 day or 3 pounds in 1 week. Allergies/Adverse Reactions: Allergies No Known Allergies Allergy (Verified 05/11/18 12:26) Medications to take at Discharge Aspirin [Aspirin, Baby] 81 mg PO DAILY@0800 04/20/18 Cholecalciferol (Vitamin D3) [Vitamin D3] 5,000 unit PO DAILY 04/20/18 Gemfibrozil [Lopid] 600 mg NG BIDAC 04/20/18 Multivitamin [Daily Multiple Vitamin] 1 each PO DAILY 04/20/18 Oxycodone HCl/Acetaminophen [Percocet 5-325] 1 - 2 tablet PO Q6H PRN PRN 05/11/18 Promethazine HCl 25 mg PO Q6H PRN 05/11/18 Albuterol Inhaler [Ventolin Hfa] 2 puff INHALATION Q4H PRN PRN #1 inhaler 05/16/18 Furosemide [Lasix] 40 mg PO DAILY #30 tablet 05/16/18 Lisinopril [Zestril] 5 mg PO BID #30 tablet 05/16/18 Potassium Chloride [K-Dur] 10 meq PO DAILY #30 tablet 05/16/18 The following prescriptions were given: Albuterol Inhaler [Ventolin Hfa] 2 puff INHALATION Q4H PRN PRN #1 inhaler PRN Reason: Shortness Of Breath Furosemide [Lasix] 40 mg PO DAILY #30 tablet Potassium Chloride [K-Dur] 10 meq PO DAILY #30 tablet Lisinopril [Zestril] 5 mg PO BID #30 tablet Orders to be completed after discharge: Chest PA and Lateral [RAD] Time Frame: 1 Month, Location: None Selected Basic Metabolic Profile (BMP) Time Frame: 1 Week, Location: Laboratory Primary Care Physician: Swetha Aleman DO [Primary Care Provider] - In 1 Week Test Results: Test results from this visit will be discussed in further detail at your follow-up appointment, if applicable. Please Follow Up With: Albert Tomas When: 05/23/18 Proposed Discharge Date: 05/16/18 05/16/18 1341 <Electronically signed by Jose Tovar DO> Date Jose Tovar DO CC: Swetha Aleman DO BASIC METABOLIC Collected: 05/16/2018 Status: F Source: [place] PROFILE (BMP) 5:30 AM [facility] TYPE CODE TESTS RESULT OUT OF RANGE REFERENCE UNITS LAB L501.0100 74-106 mg/dL Normal GLU 105 Result Comment: Fasting Glucose result from 100 to 125 mg/dL suggests IMPAIRED HOMEOSTASIS per A.D.A. criteria. Please note revised GLUCOSE reference range effective 2017. LAB L501.1000 7-18 mg/dL High BUN 20 LAB L501.1100 0.70-1.30 mg/dL Normal CREAT,SERUM 0.74 Result Comment: The validity of the calculated GFR AND GFRAA in patients over 70 years has not been determined. Clinical correlation is essential. LAB L501.1110 >60 mL/min Normal EST GFR 111 Result Comment: Non- GFR Calc LAB L501.1115 >60 mL/min Normal EST GFR - AA 134 Result Comment: GFR Calc LAB L501.1255 ml/min Normal Estimated CRCL 78.78 LAB L501.1300 10-20 RATIO High BUN/CRE 27.0 LAB L501.2200 8.5-10 mg/dL Low .1 CA 8.1 LAB L501.5300 136-14 mmol/L Low 5 NA 134 LAB L501.5600 3.5-5. mmol/L Normal 1 K 3.7 LAB L501.5900 98-107 mmol/L Low CL 96 LAB L501.6100 21.0-3 mmol/L Normal 2.0 CO2 29.0 LAB L501.6200 5-15 Normal GAP 9 Performed By: #### L500.2500 #### [facility] [address] [facility] [place], [address] CHEST PA AND LATERAL Observed: 05/16/2018 Status: F Source: [place] 12:00 AM [facility] Imaging Services [address] [place] [address] Chest PA and Lateral MR#: [id number] Acct: [id number] Name: LUCAS EAST Rep #: [id number] : 1945 M 73 From: Iván Paige MD PCP: Swetha Aleman DO Status: ADM IN Study: Chest PA and Lateral Date of Exam: 05/16/18 Exam# [id number] Ordering Dr: Jose Tovar DO STUDY: X-RAY CHEST REASON FOR EXAM: Male, 73 years old. Pleural effusion. TECHNIQUE: PA and lateral views of the chest. COMPARISON: Comparison is made with prior study dated May 14, 2018. FINDINGS: Small right pleural effusion with bibasilar atelectasis. This has slightly increased as compared to prior study. Normal size heart. Normal mediastinum and jason. Normal visualized pulmonary arteries. Normal visualized aortic arch and descending thoracic aorta. There are diffuse degenerative changes of the visualized thoracic spine. Normal visualized ribs, clavicles, and shoulders. There is no demonstrated abnormality of the visualized soft tissue structures of the upper abdomen. RAD/Chest PA and Lateral IMPRESSION: Small right pleural effusion. Increased markings at both lung bases. This is suggestive of atelectasis. Electronically Signed: Iván Paige MD at 13:24 EDT Tel [phone], Service support , CC: Jose Tovar DO; Swetha Aleman DO Vice President Of Operations: Signed BASIC METABOLIC Collected: 05/15/2018 Status: F Source: [place] PROFILE (BMP) 5:20 AM [facility] TYPE CODE TESTS RESULT OUT OF RANGE REFERENCE UNITS LAB L501.0100 74-106 mg/dL High GLU 115 Result Comment: Fasting Glucose result from 100 to 125 mg/dL suggests IMPAIRED HOMEOSTASIS per A.D.A. criteria. Please note revised GLUCOSE reference range effective 2017. LAB L501.1000 7-18 mg/dL High BUN 20 LAB L501.1100 0.70-1.30 mg/dL Normal CREAT,SERUM 0.88 Result Comment: The validity of the calculated GFR AND GFRAA in patients over 70 years has not been determined. Clinical correlation is essential. LAB L501.1110 >60 mL/min Normal EST GFR 90 Result Comment: Non- GFR Calc LAB L501.1115 >60 mL/min Normal EST GFR - AA 109 Result Comment: GFR Calc LAB L501.1255 ml/min Normal Estimated CRCL 89.52 LAB L501.1300 10-20 RATIO High BUN/CRE 22.7 LAB L501.2200 8.5-10 mg/dL Low .1 CA 8.3 LAB L501.5300 136-14 mmol/L Low 5 NA 134 LAB L501.5600 3.5-5. mmol/L Normal 1 K 3.5 LAB L501.5900 98-107 mmol/L Low CL 95 LAB L501.6100 21.0-3 mmol/L Normal 2.0 CO2 29.0 LAB L501.6200 5-15 Normal GAP 10 Performed By: #### L500.2500 #### [facility], [address] CBC W/DIFF, AUTOMATED Collected: 05/15/2018 Status: F Source: [place] 5:20 AM [facility] [place] TYPE CODE TESTS RESULT OUT OF RANGE REFERENCE UNITS LAB L100.1000 4.4-11.0 K/mm3 Normal WBC 10.9 LAB L100.1200 4.6-6.2 M/mm3 Low RBC 3.37 LAB L100.1300 13.0-16.5 g/dl Low HGB 10.0 LAB L100.1400 40-54 % Low HCT 31.0 LAB L100.1500 80-94 fL Normal MCV 92.0 LAB L100.1600 27.0-32.0 pg Normal MCH 29.7 LAB L100.1700 32-36 g/gl Normal MCHC 32.3 LAB L100.1810 11.6-14.6 % Normal RDW CV 14.3 LAB L100.1820 35.1-43.9 fl High RDW SD 46.3 LAB L100.1900 150-450 K/mm3 High PLT 497 LAB L100.2000 6.2-12.0 fl Normal MPV 9.5 LAB L100.2100 47-70 % Normal NEUT% 64.7 LAB L100.2200 19-41 % Normal LY% 25.4 LAB L100.2300 0-10 % Normal MONO% 7.0 LAB L100.2400 0-5 % Normal EO% 1.6 LAB L100.2500 0-1 % Normal BASO% 0.7 LAB L100.2550 0.0-0.9 % Normal IM GRAN % 0.600 Result Comment: IG% - Immature Granulocytes (promyelocytes, myelocytes and metamyelocytes) > 1% indicates that a LEFT SHIFT is Present. LAB L100.2620 2.0-7.7 X10 3/uL Normal Absolute Neut 7.0 LAB L100.2720 0.83-4.51 X10 3/ul Normal Absolute Lymph 2.76 LAB L100.4500 Normal SMEAR COMMENT SCANNED Performed By: #### L100.0100 #### [facility] [address] [place], [address] CHEST INSP/EXP 2 VIEW Observed: 05/14/2018 Status: F Source: [place] 10:14 AM [facility] Imaging Services [address] [place] [address] Chest Insp/Exp 2 View MR#: [id number] Acct: [id number] Name: LUCAS EAST Rep #: [id number] : 1945 M 73 From: Iván Paige MD PCP: Swetha Aleman DO Status: ADM IN Study: Chest Insp/Exp 2 View Date of Exam: 05/14/18 Exam# [id number] Ordering Dr: Iván Paige MD STUDY: X-RAY CHEST REASON FOR EXAM: Male, 73 years old. Status post right thoracentesis. TECHNIQUE: AP inspiration and expiration views. COMPARISON: Comparison is made with prior study dated May 12, 2018. FINDINGS: The patient is status post right thoracentesis. There is no evidence of pneumothorax. Mild increased markings at the lung bases suggesting bibasilar atelectasis. RAD/Chest Insp/Exp 2 View IMPRESSION: Status post right thoracentesis. No evidence of pneumothorax. Findings suggestive of mild bibasilar linear atelectasis. Electronically Signed: Iván Paige MD at 13:48 EDT Tel [phone], Service support , CC: Iván Paige MD; Swetha Aleman DO Vice President Of Operations: Signed BODY FLUID CELL Collected: 05/14/2018 Status: C Source: [place] COUNT+DIFF 10:00 AM [facility] Order Comment: The reference range and other method performance specifications have not been established for this body fluid. The test must be integrated into the clinical context for interpretation. TYPE CODE TESTS RESULT OUT OF RANGE REFERENCE UNITS LAB L200.3380 10 3/ul Normal BFTC# 0.986 Result Comment: This is the Total Number of Nucleated Cell Types in the Body Fluid. LAB L200.3400 10 6/ul Normal RBC/BF 0.50541 LAB L200.3500 10 3/uL Normal 0.950 WBC/BF LAB L200.3510 % Normal 32.2 BF PMN WBC% LAB L200.3515 % Normal 67.8 BF MN WBC% LAB L200.3520 10 3/uL Normal 0.644 BF MN WBC# LAB L200.3525 10 3/uL Normal 0.306 BF PMN WBC# LAB L200.4400 Normal PATH COMM/BF Reviewed Result Comment: Negative for malignant cells. Tristian Bolton M.D. 05/15/18 AMENDED REPORT 05/15/18 1222 PATH COMM/BF previously reported as: May follow LAB L200.3600 % PMN 30 Normal LAB L200.3700 % LYMPH 59 Normal LAB L200.3800 % MONO/BF 7 Normal LAB L200.3900 % MESOTHELIAL 1 Normal LAB L200.3950 % MACROPHAGES 2 Normal LAB L200.4100 % OTHER 1 Normal CELL/BF LAB L200.3100 SOURCE/BF THORACENTESIS Normal LAB L200.3200 COLOR/BF YELLOW Normal LAB L200.3300 APPEAR/BF SL CLDY Normal LAB L200.4420 BFM 2ND SEE COMMENT Normal SPEC Result Comment: . INTERPRETATION OF RESULTS: Differentiation of transudate and exudate fluid: TRANSUDATE EXUDATE Color- Clear,straw colored Clear,turbid,bloody,purulent RBCs- Usually none to few Often present in high numbers WBCs- Usually none to few Often present in high numbers DIFF Few lymphocytes or Lymphocytes, neutrophils, and Count- mesothelial cells. polymorphonuclear cells . Performed By: #### L200.0200 #### [facility] [address] [place], [address] GLUCOSE, BODY FLUID Collected: 05/14/2018 Status: F Source: [place] 10:00 AM [facility] Order Comment: Specimen Source: UNK TYPE CODE TESTS RESULT OUT OF RANGE REFERENCE UNITS LAB L503.0100 40-70 mg/dL High GLU,BF 115 Performed By: #### L503.0100, L503.0300, L504.0250 #### [facility] [address] [place], [address] PROTEIN, BODY FLUID Collected: 05/14/2018 Status: F Source: [place] 10:00 AM [facility] Order Comment: Specimen Source: UNK TYPE CODE TESTS RESULT OUT OF RANGE REFERENCE UNITS LAB L503.0300 Not Establ. g/dL Normal 4.0 PROTEIN,BF Performed By: #### L503.0100, L503.0300, L504.0250 #### [facility] [address] [place], [address] LDH,BODY FLUID Collected: 05/14/2018 Status: F Source: [place] 10:00 AM [facility] Order Comment: Specimen Source: UNK TYPE CODE TESTS RESULT OUT OF RANGE REFERENCE UNITS LAB L504.0250 Not Establ. Units/l Normal LDH,BF 139 Performed By: #### L503.0100, L503.0300, L504.0250 #### [facility] [place], [address] Observed: 05/14/2018 Status: F Source: [place] CULTURE, BODY FLUID 10:00 AM [facility] Gram Stain Centrifuged Specimen? Culture performed on centrifuged specimen Gram Stain 2+ White Blood Cells 3+ Red Blood Cells No organisms seen Body Fluid Cult Culture exhibits no growth. Cult, Anaerobic No anaerobic bacteria isolated. Performed By: #### M100.1300 #### [facility] [address] [facility] [place], [address] CYTOLOGY, BODY FLUID / Collected: 05/14/2018 Status: F Source: [place] CSF 10:00 AM [facility] TYPE CODE TESTS RESULT OUT OF RANGE REFERENCE UNITS LAB L350.1000 SEE Normal PATHOLOGY CYTOLOGY,BF REPORT /CSF Result Comment: Specimen submitted to Anatomical Pathology Department for testing. Performed By: #### L350.1000 #### [facility] [address] [place], [address] PH, BODY FLUID Collected: 05/14/2018 Status: F Source: [place] 24064 10:00 AM [facility] Order Comment: Specimen Source: UNK TYPE CODE TESTS RESULT OUT OF RANGE REFERENCE UNITS LAB L3800.0400 Not Estab. Normal PHBF 7.5 [address] Result Comment: This test was developed and its performance characteristics determined by [facility]. It has not been cleared or approved by the Food and Drug Administration. Performed at: [facility] [id number] Reducing Machine Operator: Toy Walls MD, Phone: [phone] Performed By: #### L3800.0400 #### [facility] (refer to report for specific site) refer to report for address and phone number PROTHROMBIN TIME W/INR Collected: 05/14/2018 Status: F Source: [place] 8:20 AM [facility] TYPE CODE TESTS RESULT OUT OF RANGE REFERENCE UNITS LAB L300.4150 11.7-14.9 SECONDS High PROTIME 15.3 LAB L300.4200 Normal INR 1.2 Performed By: #### L300.3900, L300.4310 #### [facility] [address] [place], [place], [address] PARTIAL THROMBOPLAST Collected: 05/14/2018 Status: F Source: [place] TIME 8:20 AM [facility] TYPE CODE TESTS RESULT OUT OF REFERENCE UNITS RANGE LAB L300.4310 24.1-36.2 Seconds High PTT 42.2 Performed By: #### L300.3900, L300.4310 #### [facility] [address] [place], [address] PROTEIN, TOTAL Collected: 05/14/2018 Status: F Source: [place] 8:20 AM [facility] Order Comment: Serial Specimen #1, #2 or #3? 1 TYPE CODE TESTS RESULT OUT OF RANGE REFERENCE UNITS LAB L501.1500 6.4-8.2 g/dL Normal T PROT 6.5 LAB L501.1950 2.2-4.2 g/dL High GLOB 4.3 LAB L501.2000 0.9-2.4 RATIO Low A/G 0.5 Performed By: #### L001.0705, L500.2500, L504.2610 #### [facility] [address] [place], [address] BASIC METABOLIC Collected: 05/14/2018 Status: F Source: [place] PROFILE (BMP) 8:20 AM [facility] Order Comment: Serial Specimen #1, #2 or #3? 1 TYPE CODE TESTS RESULT OUT OF RANGE REFERENCE UNITS LAB L501.0100 74-106 mg/dL High GLU 126 Result Comment: Fasting Glucose result greater than or equal to 126 mg/dL suggests DIABETES MELLITUS per A.D.A. criteria. Please note revised GLUCOSE reference range effective 2017. LAB L501.1000 7-18 mg/dL Normal BUN 12 LAB L501.1100 0.70-1.30 mg/dL Normal CREAT,SERUM 1.07 Result Comment: The validity of the calculated GFR AND GFRAA in patients over 70 years has not been determined. Clinical correlation is essential. LAB L501.1110 >60 mL/min Normal EST GFR 72 Result Comment: Non- GFR Calc LAB L501.1115 >60 mL/min Normal EST GFR - AA 88 Result Comment: GFR Calc LAB L501.1255 ml/min Normal Estimated CRCL 73.62 LAB L501.1300 10-20 RATIO Normal BUN/CRE 11.2 LAB L501.2200 8.5-10 mg/dL Normal .1 CA 8.5 LAB L501.5300 136-14 mmol/L Low 5 NA 131 LAB L501.5600 3.5-5. mmol/L Normal 1 K 3.5 LAB L501.5900 98-107 mmol/L Low CL 92 LAB L501.6100 21.0-3 mmol/L Normal 2.0 CO2 29.0 LAB L501.6200 5-15 Normal GAP 10 Performed By: #### L001.0705, L500.2500, L504.2610 #### [facility] [address] [place], [id number] LDH Collected: 05/14/2018 Status: F Source: [place] 8:20 AM [facility] Order Comment: Serial Specimen #1, #2 or #3? 1 TYPE CODE TESTS RESULT OUT OF RANGE REFERENCE UNITS LAB L504.2610 87-241 U/L Normal LDH 197 Performed By: #### L001.0705, L500.2500, L504.2610 #### [facility] [address] [place], [address] CBC-COMPLETE BLOOD CNT Collected: 05/14/2018 Status: F Source: [place] NO DIFF 6:40 AM [facility] TYPE CODE TESTS RESULT OUT OF RANGE REFERENCE UNITS LAB L100.1000 4.4-11.0 K/mm3 Normal WBC 6.8 LAB L100.1200 4.6-6.2 M/mm3 Low RBC 3.35 LAB L100.1300 13.0-16.5 g/dl Low HGB 9.8 LAB L100.1400 40-54 % Low HCT 30.5 LAB L100.1500 80-94 fL Normal MCV 91.0 LAB L100.1600 27.0-32.0 pg Normal MCH 29.3 LAB L100.1700 32-36 g/gl Normal MCHC 32.1 LAB L100.1810 11.6-14.6 % Normal RDW CV 14.3 LAB L100.1820 35.1-43.9 fl High RDW SD 47.5 LAB L100.1900 150-450 K/mm3 Normal PLT 412 LAB L100.2000 6.2-12.0 fl Normal MPV 8.9 Performed By: #### L100.0500 #### [facility] [address] [place], [address] THORACENTESIS W US Observed: 05/14/2018 Status: F Source: [place] 12:00 AM [facility] Imaging Services [address] [place] [address] Thoracentesis W US MR#: [id number] Acct: [id number] Name: LUCAS EAST Rep #: [id number] : 1945 M 73 From: Iván Paige MD PCP: Swetha Aleman DO Status: ADM IN Study: Thoracentesis W US Date of Exam: 05/14/18 Exam# [id number] Ordering Dr: Jose Hyde MD PROCEDURE: ULTRASOUND GUIDED THORACENTESIS. DATE: May 14, 2018. INDICATION: Male, 73 years old. Right pleural effusion. PHYSICIAN: Iván Paige M.D. PROCEDURE: The risks, benefits, and alternatives to the procedure were explained to the patient. The specific risks of bleeding, infection, and pneumothorax requiring chest tube insertion were discussed and accepted. Written informed consent was obtained. Ultrasonographic evaluation of the right lower pleural space was carried out. An adequate pocket was identified. The patient was placed in the sitting, upright position. The overlying skin was prepped and draped in sterile fashion. 1% lidocaine was administered subcutaneously for local anesthesia. Under ultrasound guidance, a 5 Slovenian thoracentesis needle/catheter system was advanced into the right posterior lower pleural fluid collection. Approximately 1420 mL of weston-colored fluid was drained. The catheter was removed, and a sterile dressing was applied. A specimen was collected and sent to the laboratory for analysis, as requested by the referring clinician. The patient tolerated the procedure well. A chest x-ray was ordered. US/Thoracentesis W US IMPRESSION: Ultrasound-guided right thoracentesis. Electronically Signed: Iván Paige MD at 12:53 EDT Tel [phone], Service support , CC: Jose Hyde MD; Swetha Aleman DO Vice President Of Operations: Signed FLUID/WASHING Observed: 05/14/2018 Status: F Source: [place] 12:00 AM [facility] Patient: LUCAS EAST : 1945 (73/M) Acct Num: [id number] Phys: Jose Tovar DO Unit Num: [id number] Loc: MS2 [id number] Specimen: [id number] Received: 05/14/18 140 Spec Type: Fluid TISSUES 1 TISSUES: THORACIC FLUID COMMENT Clinical correlation and appropriate follow up are necessary. CYTOLOGY GROSS Received is 60 ml of cloudy weston fluid labeled with the patient's name and and designated per the requisition as right thoracentesis. Submitted for cytology preparation including cell block. / 05/14/18 TC:5 CPT: 45088, 47085 CYTOLOGY STUDY Slides are reviewed. The specimen consists of macrophages, mesothelial cells and inflammatory cells. DIAGNOSIS CYTOLOGY Thoracentesis fluid for cytology (cytospin and cell block): Negative for malignant cells. See cytology study and comment. SJ:gregorio 05/15/18 HEADER OPERATION: Ultrasound-guided right thoracentesis PRE-OP DIAGNOSIS: Right pleural effusion TISSUE SUBMITTED: Thoracentesis fluid for cytology Signed Tristian Bolton 05/15/18 <signature on file> Performed By: #### PFLU #### [facility] [address] [facility] [place], [place], [address] CBC-COMPLETE BLOOD CNT Collected: 05/13/2018 Status: F Source: [place] NO DIFF 4:20 AM [facility] TYPE CODE TESTS RESULT OUT OF RANGE REFERENCE UNITS LAB L100.1000 4.4-11.0 K/mm3 Normal WBC 8.1 LAB L100.1200 4.6-6.2 M/mm3 Low RBC 3.14 LAB L100.1300 13.0-16.5 g/dl Low HGB 9.5 LAB L100.1400 40-54 % Low HCT 28.9 LAB L100.1500 80-94 fL Normal MCV 92.0 LAB L100.1600 27.0-32.0 pg Normal MCH 30.3 LAB L100.1700 32-36 g/gl Normal MCHC 32.9 LAB L100.1810 11.6-14.6 % Normal RDW CV 13.9 LAB L100.1820 35.1-43.9 fl High RDW SD 45.2 LAB L100.1900 150-450 K/mm3 Normal PLT 441 LAB L100.2000 6.2-12.0 fl Normal MPV 9.5 Performed By: #### L100.0500 #### [facility] [address] [place], [place], [address] BASIC METABOLIC Collected: 05/13/2018 Status: F Source: [place] PROFILE (BMP) 4:20 AM [facility] TYPE CODE TESTS RESULT OUT OF RANGE REFERENCE UNITS LAB L501.0100 74-106 mg/dL Normal GLU 97 Result Comment: Please note revised GLUCOSE reference range effective 2017. LAB L501.1000 7-18 mg/dL Normal BUN 10 LAB L501.1100 0.70-1.30 mg/dL Normal CREAT,SERUM 0.82 Result Comment: The validity of the calculated GFR AND GFRAA in patients over 70 years has not been determined. Clinical correlation is essential. LAB L501.1110 >60 mL/min Normal EST GFR 99 Result Comment: Non- GFR Calc LAB L501.1115 >60 mL/min Normal EST GFR - AA 119 Result Comment: GFR Calc LAB L501.1255 ml/min Normal Estimated CRCL 96.07 LAB L501.1300 10-20 RATIO Normal BUN/CRE 12.2 LAB L501.2200 8.5-10 mg/dL Low .1 CA 7.8 LAB L501.5300 136-14 mmol/L Low 5 NA 132 LAB L501.5600 3.5-5. mmol/L Normal 1 K 3.7 LAB L501.5900 98-107 mmol/L Low CL 94 LAB L501.6100 21.0-3 mmol/L Normal 2.0 CO2 27.0 LAB L501.6200 5-15 Normal GAP 11 Performed By: #### L500.2500 #### [facility] [address] [facility] [place], [address] ECHOCARDIOGRAM COMPLETE Observed: 05/12/2018 Status: F Source: [place] 2:03 PM [facility] Cardiovascular Services [address] [place] [address] Echo Complete 05/12/18 0850 MR#: [id number] Acct: [id number] Name: LUCAS EAST Rep #: [id number] : 1945 73 From: Quintin Patel MD Attending Dr: Jose Hyde MD Status: ADM IN Ordering Dr: Rosmery Gerenfield MD Date: 05/12/18 Location: MS2 Sex: M C Admitted: 05/11/18 Reason For Study: Dyspnea/SOB Procedure This was a 2D Doppler, Color Flow transthoracic echocardiogram. Exam performed portable in patient room. Left Ventricle Normal size and thickness. The estimated ejection fraction is 65 %. Stage 1 diastolic dysfunction. Right Ventricle Normal right ventricle. Atria Normal left atrium. Normal right atrium. Mitral Valve The mitral valve is structurally normal. No prolapse or stenosis seen. Tricuspid Valve Mild tricuspid valve insufficiency. Right ventricular systolic pressure estimated to be 35 mmHg. Aortic Valve Normal aortic valve. Pulmonic Valve The pulmonic valve is not well visualized. Great Vessels Normal aortic root. Pericardium/Pleural No pericardial effusion. MMode/2D Measurements AND Calculations LVIDd: 4.6 cm IVSd: 1.0 cm Ao root diam: 3.5 cm LVIDs: 3.4 cm LVPWd: 1.3 cm LA dimension: 3.5 cm FS: 26.2 % LAV(MOD-bp): 74.3 ml LA A4 area: 23.0 cm2 RA A4 area: 13.5 cm2 LAV(MOD-bp) Indexed: 32.3 ml/m2 LAV(MOD-sp2): 74.2 ml LAV(MOD-sp4): 75.8 ml Time Measurements MV dec time: 0.28 sec Doppler Measurements AND Calculations MV E max derick: 66.0 cm/sec Lat Peak E' Derick: 9.6 cm/sec Med Peak E' Derick: 9.3 cm/sec MV A max derick: 78.3 cm/sec E/E' lat: 6.9 E/E' med: 7.1 MV E/A: 0.84 MV V2 max: 79.3 cm/sec MV P1/2t max derick: 71.0 cm/sec Ao V2 max: 168.5 cm/sec MV max P.5 mmHg MV P1/2t: 74.0 msec Ao max P.4 mmHg MV V2 mean: 49.6 cm/sec MV dec slope: 280.8 cm/sec2 Ao V2 mean: 107.7 cm/sec MV mean P.1 mmHg MVA(P1/2t): 3.0 cm2 Ao mean P.4 mmHg MV V2 VTI: 21.3 cm Ao V2 VTI: 26.2 cm LV V1 max: 147.4 cm/sec PA V2 max: 124.2 cm/sec TR max derick: 269.2 cm/sec LV V1 max P.7 mmHg TR max P.0 mmHg LV V1 mean P.5 mmHg LV V1 mean: 84.7 cm/sec LV V1 VTI: 22.9 cm Interpretation Summary The estimated ejection fraction is 65 %. Stage 1 diastolic dysfunction. Right ventricular systolic pressure estimated to be 35 mmHg. Mild tricuspid valve insufficiency. Ordering Physician: Rosmery Greenfield Referring Physician: Swetha Aleman M.D. Performed By: Duncan Rubio RCS 05/12/18 1403 Date Quintin Patel MD CC: Jose Hyde MD; Swetha Aleman DO; Rosmery Greenfield MD Date Dictated: 05/12/18 0850 Date Transcribed: 05/12/18 1403 Vice President Of Operations: Signed CHEST 1 VIEW Observed: 05/12/2018 Status: F Source: [place] (PORTABLE) 9:22 AM [facility] Imaging Services [address] [place] [address] Chest 1 View (Portable) MR#: [id number] Acct: [id number] Name: LUCAS EAST Rep #: [id number] : 1945 M 73 From: Scottie Abbasi MD PCP: Swetha Aleman DO Status: ADM IN Study: Chest 1 View (Portable) Date of Exam: 05/12/18 Exam# [id number] Ordering Dr: Jose Hyde MD STUDY: X-RAY CHEST REASON FOR EXAM: Male, 73 years old. SOB / SOA TECHNIQUE: Single frontal view of the chest. COMPARISON: None. FINDINGS: Chronic appearing increased interstitial lung markings. Large right pleural effusion. Enlarged heart size. Normal mediastinum and jason. Normal visualized pulmonary arteries. There is atherosclerotic calcification of the aortic arch with tortuosity. There are diffuse degenerative changes of the visualized thoracic spine. There is degenerative osteoarthritis of the bilateral shoulders. There is no demonstrated abnormality of the visualized soft tissue structures of the upper abdomen. RAD/Chest 1 View (Portable) IMPRESSION: Large right pleural effusion. Electronically Signed: Scottie Abbasi MD at 17:55 EDT , Service support , CC: Jose Hyde MD; Swetha Slava DO Vice President Of Operations: Signed BNP,B-TYPE NATRIURETIC Collected: 05/12/2018 Status: F Source: [place] PEPTIDE 4:55 AM [facility] TYPE CODE TESTS RESULT OUT OF RANGE REFERENCE UNITS LAB L503.6620 0-100 pg/mL Normal B-TYPE 40.6 LEXI PEP Performed By: #### L503.6620, L503.6005 #### [facility] [address] [place], [place], [id number] LACTIC ACID Collected: 05/12/2018 Status: F Source: [place] 4:55 AM [facility] Order Comment: Yes/No query for Sepsis Lactate Rule Y TYPE CODE TESTS RESULT OUT OF RANGE REFERENCE UNITS LAB L503.6005 0.4-2.0 mmol/L Normal LACTIC ACID 1.0 Performed By: #### L503.6620, L503.6005 #### [facility] [address] [facility] [place], [place], [id number] CBC-COMPLETE BLOOD CNT Collected: 05/12/2018 Status: F Source: [place] NO DIFF 4:55 AM [facility] TYPE CODE TESTS RESULT OUT OF RANGE REFERENCE UNITS LAB L100.1000 4.4-11.0 K/mm3 Normal WBC 8.3 LAB L100.1200 4.6-6.2 M/mm3 Low RBC 3.23 LAB L100.1300 13.0-16.5 g/dl Low HGB 9.7 LAB L100.1400 40-54 % Low HCT 29.5 LAB L100.1500 80-94 fL Normal MCV 91.3 LAB L100.1600 27.0-32.0 pg Normal MCH 30.0 LAB L100.1700 32-36 g/gl Normal MCHC 32.9 LAB L100.1810 11.6-14.6 % Normal RDW CV 14.2 LAB L100.1820 35.1-43.9 fl High RDW SD 47.6 LAB L100.1900 150-450 K/mm3 High PLT 467 LAB L100.2000 6.2-12.0 fl Normal MPV 9.4 Performed By: #### L100.0500 #### [facility] [address] [place], [place], [id number] BASIC METABOLIC Collected: 05/12/2018 Status: F Source: [place] PROFILE (BMP) 4:55 AM [facility] TYPE CODE TESTS RESULT OUT OF RANGE REFERENCE UNITS LAB L501.0100 74-106 mg/dL Normal GLU 106 Result Comment: Fasting Glucose result from 100 to 125 mg/dL suggests IMPAIRED HOMEOSTASIS per A.D.A. criteria. Please note revised GLUCOSE reference range effective 2017. LAB L501.1000 7-18 mg/dL Normal BUN 12 LAB L501.1100 0.70-1.30 mg/dL Normal CREAT,SERUM 0.77 Result Comment: The validity of the calculated GFR AND GFRAA in patients over 70 years has not been determined. Clinical correlation is essential. LAB L501.1110 >60 mL/min Normal EST GFR 106 Result Comment: Non- GFR Calc LAB L501.1115 >60 mL/min Normal EST GFR - AA 129 Result Comment: GFR Calc LAB L501.1255 ml/min Normal Estimated CRCL 78.78 LAB L501.1300 10-20 RATIO Normal BUN/CRE 15.6 LAB L501.2200 8.5-10 mg/dL Low .1 CA 8.1 LAB L501.5300 136-14 mmol/L Low 5 NA 130 LAB L501.5600 3.5-5. mmol/L Normal 1 K 4.2 LAB L501.5900 98-107 mmol/L Low CL 96 LAB L501.6100 21.0-3 mmol/L Normal 2.0 CO2 24.0 LAB L501.6200 5-15 Normal GAP 10 Performed By: #### L500.2500, L501.5200 #### [facility] [address] [place], [place], [address] MAGNESIUM Collected: 05/12/2018 Status: F Source: [place] 4:55 AM [facility] TYPE CODE TESTS RESULT OUT OF RANGE REFERENCE UNITS LAB L501.5200 1.6-2.6 mg/dL Normal MG 1.7 Performed By: #### L500.2500, L501.5200 #### [facility] [address] [place], [place], [address] Observed: 05/11/2018 Status: F Source: IGOR INFLUENZA A+B (RAPID 7:30 PM [facility] [place] REPOSITORY FLU A/B Rapid Negative test results should be confirmed by culture. Order Rapid Viral Culture for Influenzae A+B ([id number]) if clinically indicated. Influenza Ag, Direct Presumptive NEGATIVE for Influenza A/B Antigen (See Note) Performed By: #### M101.0101 #### [facility] [address] [facility] [place], [address] HISTORY AND PHYSICAL Observed: 05/11/2018 Status: F Source: [place] EXAM 5:53 PM [facility] [place] [facility] Medical Records Department [address] [place] [address] History and Physical 05/11/18 1550 MR#: [id number] Acct: [id number] Name: LUCAS EAST Rep #: [id number] : 1945 73 From: Jose Hyde MD PCP: Swetha Aleman DO Status: ADM IN [place] [facility] [place] [id number] Problem List (1) Pneumonia Status: Acute (2) Essential hypertension Status: Chronic (3) Dyslipidemia Status: Chronic History of Present Illness Date of Admission: 05/11/18 Chief Complaint: Cough The patient is a 73 year old M with recent laparotomy for strength related hernia which was performed at [facility]. Patient presented with generalized weakness. Patient was apparently paid a visit by his home health nurse who felt his incision was infected. He was therefore asked to present to the ED. On further questioning patient did admit to feeling excessive fatigue he also has a cough but no shortness of breath. He did experience low-grade fever at home. Imaging studies obtained in the ED demonstrated right lower lobe infiltrate consistent with pneumonia and assessment of healthcare acquired pneumonia made patient admitted to regular nursing floor for further management. Past Medical History Past Medical History (Chronic Problems): Chronic Problems Essential hypertension (Chronic) Dyslipidemia (Chronic) Allergies No Known Allergies Allergy (Verified 05/11/18 12:26) Home Medications: Ambulatory Orders Medication Instructions Recorded Amlodipine [Norvasc] 5 mg PO DAILY 04/20/18 Aspirin [Aspirin, Baby] 81 mg PO DAILY@0800 04/20/18 Smoking Status: Former smoker - *Family History Maternal History Items: Cancer Paternal History Items: Heart Disease Review of Systems Constitutional: Reports: Anorexia, Fever, Malaise, Weakness HEENT: Denies: Head Aches, Sinus Congestion, Sinus Drainage Cardiovascular: Denies: Chest Pain, Orthopnea, Palpitations, Paroxysmal Noc. Dyspnea Respiratory: Reports: Cough Gastrointestinal: Denies: Abdominal Pain, Hematemesis, Hematochezia, Nausea, Melena, Vomiting Genitourinary: Denies: Dysuria, Frequency, Hematuria, Urgency Musculoskeletal: Denies: Joint Pain, Joint Tenderness Skin: Denies: Rash Neurological: Denies: Focal weakness, Numbness, Tingling Psychiatric: Denies: Homicidal Ideations, Suicidal Ideations Hematologic/ Lymphatic: Denies: Easy Bruising, Easy Bleeding VTE Information - Inpt Only VTE Present on Admission: No VTE Mechan Device Prophylaxis: Knee High OLGA Hose VTE Pharm Prophylaxis ordered?: Yes Patient Problems: Active and Suspected Problems Pneumonia (Acute) Objective: GENERAL: Patient appears ill looking HEENT: Atraumatic; moist oral mucosa EYES; Anicteric, Normal Conjunctiva NECK; supple, normal thyroid, no distended JVD. RESPIRATORY: Diminished to auscultation bilaterally, CARDIOVASCULAR: Regular S1 S2, no audible murmurs GI: soft, non-tender, abdominal incision well-healed : No Renal angle tenderness; EXTREMITIES: No edema, no clubbing, no cyanosis. MUSCULOSKELETAL: No Joint Tenderness; no muscle waisting NEURO: Awake; no lateralizing signs. SKIN: No Rash PSYCH; Flaaffect - Physical Exam Vital Signs Temp Pulse Resp BP Pulse Ox 99.4 F H 106 H 16 109/68 92 05/11/18 12:52 05/11/18 12:27 05/11/18 14:33 05/11/18 12:27 05/11/18 12:27 Oxygen Delivery Method Room Air Weight: 102.058 kg Body Mass Index (BMI) 28.8 Laboratory Tests Past 24 Hrs Assessment/Plan All Active Problems Pneumonia (Acute) Patient is a 73-year-old gentleman who underwent exploratory laparotomy on account of strength related hernia on 04/21/2018 at [facility] presents with progressive generalized weakness 1. Healthcare acquired pneumonia: Suspected to negative organisms. Patient is admitted to regular floor. Blood and sputum cultures sent. Patient placed on Zosyn as well as ciprofloxacin in addition to oxygen titrated to keep oxygen saturation greater than 90. Also did order for incentive spirometry 2. Adult failure to thrive: Requested for PT OT eval and social work assistant to assist with discharge planning 3. Dyslipidemia patient is on gemfibrozil 4. Hypertension-blood pressure controlled, home medications continued with dose adjustment as needed 5. DVT prophylaxis SC Lovenox Advance planning; did discuss with the patient and family regarding her advanced directives as well as CODE STATUS. Did explain the various modalities involved ( FULL CODE, DNR CCA, DNR CCA with no intubation, and DNR CC ) patient elected to be full code. Order was placed. Time spent on discussion 16 minutes. Code Visit Inpatient E AND M: 19965 Subs Hosp L3 Procedures: 80039 Advncd Care Plan 30 Min 05/11/18 7279 <Electronically signed by Jose Hyde MD> Date Jose Hyde MD Cosigner Signature: Date (if applicable) CC: Jose Hyde MD; Swetha Aleman DO Signed Observed: 05/11/2018 Status: F Source: [place] CULTURE, SPUTUM 5:20 PM [facility] Gram Stain Acceptable Specimen? Yes (<25 Epithelial cells per/lpf) Gram Stain Rare White Blood Cells Rare Gram positive cocci Rare Epithelial cells Resp. Culture Mixed normal respiratory javier. No Haemophilus, Streptococcus pneumoniae, beta-hemolytic Streptococcus or Staphylococcus aureus isolated. Performed By: #### M100.0800 #### [facility] [address] [place], [address] Observed: 05/11/2018 Status: F Source: [place] LEGIONELLA ANTIGEN 4:49 PM [facility] [place] Legionella, UR Legionella Antigen result interpretation: Negative Presumptive negative for Legionella pneumophila serogroup 1 antigen in urine, suggesting no recent or current infection. Legionella Ag, Urine Negative (See interpretation below) Performed By: #### M300.4500 #### [facility] [address] [place] [place], [address] STREP Observed: 05/11/2018 Status: F Source: [place] PNEUMONIAE ANTIG(UR,CSF) 4:49 PM [facility] [place] S pneumo Ag URINE INTERPRETATION Negative Urine Presumptive negative for pneumococcal pneumonia, suggesting no current or recent pneumococcal infection. Infection due to S pneumoniae cannot be ruled out since the antigen present in the sample may be below the detection limit of the test. Strep pneumo Test Negative URINE (See interpretation below) Performed By: #### M300.4600 #### [facility] [address] [place] [place], [address] Observed: 05/11/2018 Status: F Source: [place] CULTURE, BLOOD (WB) 4:20 PM [facility] BC No growth in 5 days. Performed By: #### M200.1000 #### [facility] [place], [address] Observed: 05/11/2018 Status: F Source: [place] CULTURE, BLOOD (WB) 4:08 PM [facility] [place] BC No growth in 5 days. Performed By: #### M200.1000 #### [facility] [address] [place] [address] [place], [address] EMERGENCY DEPARTMENT Observed: 05/11/2018 Status: F Source: [place] SUMMARY 4:01 PM [facility] [place] [facility] Medical Records Department [address] [place] [address] Emergency Department Summary 05/11/18 1307 MR#: [id number] Acct: [id number] Name: LUCAS EAST Rep #: [id number] : 1945 73 From: Cristina Lyles MD PCP: Swetha Aleman DO Status: REG ER - ER Visit Summary Date of Service: 05/11/18 Chief Complaint: Wound check History of Present Illness: The patient is a 73 M presenting for wound check. Patient had surgery at [facility] on April 25 for a strangulated hernia. This was complicated by sepsis. He was in the hospital for 12 days. He was discharged 1 week ago. He has home nursing that changes his dressing once daily. They were concerned about a foul odor yesterday. Today he developed a fever and was advised to come to the ED for further evaluation. Physical Examination: Vitals are stable. Patient is afebrile. Alert no acute distress. HEENT exam is unremarkable. Neck is supple. Lungs are clear and equal bilaterally. Heart is regular rate and rhythm. Abdomen is soft nontender nondistended. Incision intact with mild erythema Extremities are unremarkable. Skin is warm and dry. No focal neurologic deficit. Remainder of exam is unremarkable. Emergency Department Course and Treatment: CBC shows a hemoglobin 9.7. Chemistries show sodium 130, glucose 136. Urinalysis unremarkable. Abdominal series shows pleural effusion versus infiltrate; ileus. Patient was given vancomycin and Zosyn for healthcare acquired pneumonia. Discussed with Dr. Meeks at [facility]. He is in agreement that the patient can stay at [facility] as the patient wishes. Discussed with Dr. Hyde and patient will be admitted. Disposition: Admission Impression: Healthcare acquired pneumonia This note was generated with Generate dictation software. It may contain incorrect words, spelling, and punctuation that were not noted in review of the chart prior to signing ED Disposition - Plan for ED Patient: Chief Complaint: Wound Check Referrals: Swetha Aleman, DO [Primary Care Provider] - What to do if you have Problems For any increased pain, shortness of breath, bleeding, nausea or vomiting, chest pain, or any unexpected problems, contact your Primary Care Provider. Call [facility] ([phone]) or report to the closest Emergency Room. Call 911 if necessary. 05/11/18 1601 <Electronically signed by Cristina Lyles MD> Date Cristina Lyles MD Cosigner Signature (If Indicated): Date CC: Swetha Aleman DO URINALYSIS, COMPLETE Collected: 05/11/2018 Status: F Source: IG[place] 2:29 PM [facility] [place] Order Comment: Order Date: 05/11/18 How was Urine Obtained? CLEAN CATCH TYPE CODE TESTS RESULT OUT OF RANGE REFERENCE UNITS LAB L400.3000 Yellow COLOR Normal Yellow LAB L400.3050 Clear Normal CLARITY Clear LAB L400.3200 Normal mg/dl Normal GLUCOSE, UR Normal LAB L400.3300 Negative mg/dL High BILIRUBIN URINE 1 Result Comment: COLOR OF URINE MAY AFFECT DIPSTICK RESULTS. LAB L400.3400 Negative mg/dl Normal KETONE UR Negative LAB L400.3465 1.002-1.030 Normal SP.GR. DIPSTX 1.010 LAB L400.3550 5.0 - 8.0 pH Normal UR 7.0 LAB L400.3600 Negative mg/dl High PROT DIPSTX 15 LAB L400.3700 Normal mg/dl High UROBILI 4 LAB L400.3750 Negative Normal NITRITE UR Negative LAB L400.3780 Negative /ul Normal OCCULT Negative BLOOD-UR LAB L400.3800 Negative /ul High LEUK ESTERASE 25 LAB L400.4050 0-5 /hpf Normal WBC 0-5 SEEN LAB L400.4100 0-5 /hpf Normal RBC-UA 0 SEEN LAB L400.4150 0-5 /hpf Normal SQUAM EPI 0-5 SEEN LAB L400.4300 None Seen /hpf Normal BACTERIA 1+ LAB L400.4350 <or=2+ /hpf Normal MUCUS, URINE 2+ Performed By: #### L400.0001 #### [facility] [place], [address] CBC W/DIFF, AUTOMATED Collected: 05/11/2018 Status: F Source: IG[place] 1:19 PM [facility] TYPE CODE TESTS RESULT OUT OF RANGE REFERENCE UNITS LAB L100.1000 4.4-11.0 K/mm3 Normal WBC 7.5 LAB L100.1200 4.6-6.2 M/mm3 Low RBC 3.26 LAB L100.1300 13.0-16.5 g/dl Low HGB 9.7 LAB L100.1400 40-54 % Low HCT 29.8 LAB L100.1500 80-94 fL Normal MCV 91.4 LAB L100.1600 27.0-32.0 pg Normal MCH 29.8 LAB L100.1700 32-36 g/gl Normal MCHC 32.6 LAB L100.1810 11.6-14.6 % Normal RDW CV 14.1 LAB L100.1820 35.1-43.9 fl High RDW SD 46.5 LAB L100.1900 150-450 K/mm3 Normal PLT 433 LAB L100.2000 6.2-12.0 fl Normal MPV 9.0 LAB L100.2100 47-70 % Normal NEUT% 64.5 LAB L100.2200 19-41 % Normal LY% 23.0 LAB L100.2300 0-10 % High MONO% 10.1 LAB L100.2400 0-5 % Normal EO% 1.3 LAB L100.2500 0-1 % Normal BASO% 0.4 LAB L100.2550 0.0-0.9 % Normal IM GRAN % 0.700 Result Comment: IG% - Immature Granulocytes (promyelocytes, myelocytes and metamyelocytes) > 1% indicates that a LEFT SHIFT is Present. LAB L100.2620 2.0-7.7 X10 3/uL Normal Absolute Neut 4.9 LAB L100.2720 0.83-4.51 X10 3/ul Normal Absolute Lymph 1.73 Performed By: #### L100.0100 #### [facility] [address] [place], [address] BASIC METABOLIC Collected: 05/11/2018 Status: F Source: [place] PROFILE ([facility]) 1:19 PM [facility] [place] TYPE CODE TESTS RESULT OUT OF RANGE REFERENCE UNITS LAB L501.0100 74-106 mg/dL High GLU 136 Result Comment: Fasting Glucose result greater than or equal to 126 mg/dL suggests DIABETES MELLITUS per A.D.A. criteria. Please note revised GLUCOSE reference range effective 2017. LAB L501.1000 7-18 mg/dL Normal BUN 12 LAB L501.1100 0.70-1.30 mg/dL Normal CREAT,SERUM 0.81 Result Comment: The validity of the calculated GFR AND GFRAA in patients over 70 years has not been determined. Clinical correlation is essential. LAB L501.1110 >60 mL/min Normal EST GFR 100 Result Comment: Non- GFR Calc LAB L501.1115 >60 mL/min Normal EST GFR - AA 121 Result Comment: GFR Calc LAB L501.1255 ml/min Normal Estimated CRCL 97.25 LAB L501.1300 10-20 RATIO Normal BUN/CRE 14.9 LAB L501.2200 8.5-10 mg/dL Low .1 CA 7.8 LAB L501.5300 136-14 mmol/L Low 5 NA 130 LAB L501.5600 3.5-5. mmol/L Normal 1 K 4.2 LAB L501.5900 98-107 mmol/L Normal CL 98 LAB L501.6100 21.0-3 mmol/L Normal 2.0 CO2 25.0 LAB L501.6200 5-15 Normal GAP 7 Performed By: #### L500.2500 #### [facility] [address] [facility] [place], [address] ACUTE ABDOMEN INC Observed: 05/11/2018 Status: F Source: [place] CHEST 1:06 PM [facility] [place] [facility] Imaging Services [address] [place] [address] Acute Abdomen Inc Chest MR#: [id number] Acct: [id number] Name: LUCAS EAST Nurys Rep #: [id number] : 1945 M 73 From: Benton Toledo MD PCP: Swetha Aleman DO Status: REG ER Study: Acute Abdomen Inc Chest Date of Exam: 05/11/18 Exam# [id number] Ordering Dr: Cristina Lyles MD STUDY: X-RAY - ACUTE ABDOMINAL SERIES REASON FOR EXAM: Male, 73 years old. Recent hernia repair. Fever. TECHNIQUE: Single view of the chest. Supine, and erect view(s) of the abdomen were obtained. COMPARISON: CT scan 04/20/2018. FINDINGS: The chest x-ray [...] Inc Chest CC: Cristina Lyles MD; Swetha Aleman DO Vice President Of Operations: Signed CR ABDOMEN AP Observed: 05/07/2018 Status: F Source: [facility] 12:57 PM SYSTEM REPOSITORY Patient Name: LUCAS EAST Diagnostic Radiology Exam Date/Time 04/29/2018 09:49:30 EDT Exam CR Abdomen AP Ordering Physician MD TAE, [facility] [place] Accession Number [id number] CPT4 Codes 56357 () Reason For Exam distension Report Dictation: Abdominal distention. Comparison 04/19/2018. Findings and impression: Abdomen single view. There is moderate distention of bowel loops present. It appears about the same. Ventral surgical abiley present. Diaphragm not included in the study. Consider ileus or obstruction depending the clinical setting. Report Dictated on Final Dictated: 05/07/2018 12:57 pm Dictating Physician: MD PINA JOHN Signed Date and Time: 05/07/2018 12:58 pm Signed by: MD PINA JOHN Transcribed Date and Time: 05/07/2018 12:57 DISCHARGE SUMMARY Observed: 05/02/2018 Status: F Source: [facility] 7:28 AM SYSTEM REPOSITORY Discharge Summary Lucas East : 1945 ADMIT DATE: 04/21/2018 DISCHARGE DATE: 05/02/2018 PRIMARY CARE PHYSICIAN: SWETHA ALEMAN VISIT STATUS: Admission CODE STATUS: Full Code DISCHARGE DIAGNOSES: Principal Problem (Resolved): Strangulated inguinal hernia Active Problems: Pressure injury of sacral region, stage 2 Resolved Problems: Abdominal pain Oliguria Sepsis (HCC) Acute orchitis Peritonitis (HCC) Ileus (HCC) HOSPITAL COURSE: Mr. East is a 73 yo transferred to [facility] on 04/21/18 with acute strangulated right inguinal hernia causing bowel obstruction and free air. On exploration on 04/21/18 found to have perforated cecum with large right inguinal hernia and ischemic right testicle. On 04/21/18 underwent partial cectomy, appendectomy, right orchiectomy and right inguinal hernia repair. Post operatively he required ICU care for septic shock requiring pressors. By POD 2 he was transferred to the floor. He had a prolonged post op course with post operative ileus requiring NGT. At discharge on POD 11 he was tolerating a low fiber diet, ambulating and voiding. He completed 7 days of antibiotics for intraabdominal spillage. He had a stage II left sacrum pressure ulcer present on arrival that was treated with venelex and stoma past ointment. He was discharged home with home PT and nursing for wound care. SIGNIFICANT DIAGNOSTIC STUDIES: CT abd.pelvis 04/21/18: incarcerated right inguinal hernia containing small bowel and free air CONSULTANTS: none RECOMMENDED NEXT STEPS: none DISCHARGE MEDICATIONS: Lucas East Home Medication Instructions SEDA:[id number] Printed on:05/02/18 1102 Medication Information amLODIPine (NORVASC) 5 MG tablet Take 5 mg by mouth daily aspirin 81 MG tablet Take 81 mg by mouth daily Balsam [place] Oil (VENELEX) OINT ointment Apply topically every 8 hours Cholecalciferol (VITAMIN D3) 5000 units TABS Take 1 tablet by mouth daily gemfibrozil (LOPID) 600 MG tablet Take 600 mg by mouth 2 times daily (before meals) lisinopril (PRINIVIL;ZESTRIL) 10 MG tablet Take 10 mg by mouth 2 times daily Multiple Vitamins-Minerals (THERAPEUTIC MULTIVITAMIN-MINERALS) tablet Take 1 tablet by mouth daily oxyCODONE-acetaminophen (PERCOCET) 5-325 MG per tablet Take 1-2 tablets by mouth every 4 hours as needed for Pain for up to 7 days.. promethazine (PHENERGAN) 25 MG tablet Take 1 tablet by mouth every 6 hours as needed for Nausea stomahesive in petrolatum (ET MIX) Apply 5 mLs topically every 8 hours DIET: Dietary Nutrition Supplements: Low Calorie High Protein Supplement DIET LOW FIBER; ACTIVITY: No heavy lifting. COMPLEXITY OF FOLLOW UP: [] Moderate Complexity: follow up within 7-14 calendar days (49602) [x] Severe Complexity: follow up within 7 calendar days (46206) FOLLOW UP TESTING, PENDING RESULTS OR REFERRALS AT TRANSITIONAL CARE VISIT: [] Yes [x] No PENDING STUDIES: No DISPOSITION: Home with Home Health Care FACILITY/HOME CARE AGENCY NAME: [facility] home Follow up with Swetha Aleman [address] [facility] [place] [address] [place], [address], [address] [facility] [address] Schedule an appointment as soon as possible for a visit in 2 weeks For staple removal INSTRUCTIONS TO MA/SW: Please call patient on day after discharge (must document patient contacted within 2 business days of discharge). FOLLOW UP QUESTIONS FOR MA/SW: 1. Did you get medications filled and taking them as instructed from discharge? 2. Are you following your discharge instructions from your hospital stay? 3. Please confirm patient is scheduled for a follow up appointment within the above time frame. DISCHARGE TIME: > 30 minutes SIGNED: Buddy Stahl MD 05/02/2018, 7:28 AM HEMOGRAM W/ AUTODIFF Collected: 05/02/2018 Status: F Source: [employer] 3:01 AM SYSTEM REPOSITORY TYPE CODE TESTS RESULT OUT OF REFERENCE UNITS RANGE LAB IWBC 3.6-10.7 10*3/uL WBC Normal 9.3 LAB RBC 4.40-5.90 10*6/uL Low RBC 2.98 LAB HGB 13.0-18.0 g/dL Low Hemoglobin 9.8 LAB HCT 40.0-52.0 % Low Hematocrit 27.6 LAB MCV 80.0-98.0 fL MCV Normal 92.6 LAB MCH 26.0-34.0 pg MCH Normal 32.8 LAB MCHC 32.0-36.0 % MCHC Normal 35.4 LAB RDW 11.5-14.5 % RDW Normal 14.2 LAB PLT 140-440 10*3/uL Platelet High 603 LAB MPV 7.4-10.4 fL MPV Normal 7.7 LAB GRAN% 40.0-80.0 % Granulocytes Normal 72.5 LAB LYMP% 20.0-40.0 % Low Lymphocytes 13.1 LAB MONO% 2.0-10.0 % Monocytes High 13.2 LAB EOS% 1.0-6.0 % Low Eosinophils 0.6 LAB BAS% 0.0-2.0 % Basophils Normal 0.6 LAB ANC 1.8-7.0 10*3/uL Abs Normal Neutrophile Cnt 6.7 LAB ALC 1.0-4.3 10*3/uL Abs Lymph Cnt Normal 1.2 LAB AMC 0.0-0.8 10*3/uL Abs Monocyte High Cnt 1.2 LAB AEC 0.0-0.5 10*3/uL Abs Eosin Cnt Normal 0.1 LAB ABC 0.0-0.2 10*3/uL Abs Baso Cnt Normal 0.1 Performed By: #### HEMDF, BMP3, MG3, PHOS3 #### [facility] [address] [place] [id number] BASIC METABOLIC PANEL Collected: 05/02/2018 Status: F Source: [facility] 3:01 AM SYSTEM REPOSITORY TYPE CODE TESTS RESULT OUT OF RANGE REFERENCE UNITS LAB NA3 137-145 mmol/L Low Sodium 132 LAB K3 3.5-5.1 mmol/L Normal Potassium 3.9 LAB CL3 98-107 mmol/L Chloride Normal 102 LAB CO23 22-30 mmol/L Carbon Normal Dioxide 24 LAB ANIN3 NA Anion Gap 6 LAB GLUC3 70-100 mg/dL High Glucose 124 LAB BUN3 7-20 mg/dL Urea Normal Nitrogen 12 LAB CRET3 0.52-1.25 mg/dL Normal Creatinine 0.67 LAB GF3BR >60 mL/min eGFR > 60.0 LAB GF3WR >60 mL/min eGFR OTHER > 60.0 Result Comment: Source- MDRD equation with creatinine calibration to IDMS(NKDEP) eGFR not recommended for drug dose adjustment LAB CA3 8.4-10.4 mg/dL Low Calcium 7.8 Performed By: #### HEMDF, BMP3, MG3, PHOS3 #### [facility] [address] [place] [address] MAGNESIUM Collected: 05/02/2018 Status: F Source: [facility] 3:01 AM SYSTEM REPOSITORY TYPE CODE TESTS RESULT OUT OF RANGE REFERENCE UNITS LAB MG3 1.6-2.3 mg/dL Normal Magnesium 1.7 Performed By: #### HEMDF, BMP3, MG3, PHOS3 #### [facility] [address] [place] [address] PHOSPHORUS Collected: 05/02/2018 Status: F Source: [facility] 3:01 AM SYSTEM REPOSITORY TYPE CODE TESTS RESULT OUT OF RANGE REFERENCE UNITS LAB PHOS3 2.5-4.5 mg/dL Normal Phosphorus 3.0 Performed By: #### HEMDF, BMP3, MG3, PHOS3 #### [facility] [address] [place] [address] CR CHEST 1 VIEW Observed: 05/01/2018 Status: F Source: [facility] 9:02 AM SYSTEM REPOSITORY Patient Name: LUCAS EAST Diagnostic Radiology Exam Date/Time 05/01/2018 08:50:25 EDT Exam CR Chest 1 View Frontal Ordering Physician BUDDY POLLOCK Accession Number [id number] CPT4 Codes 59209 () Reason For Exam ? fluid overload Report CHEST: CLINICAL INDICATION: Fluid overload TECHNIQUE: AP portable chest COMPARISON: 04/22/2018 FINDINGS: The cardiomediastinal silhouette appears unchanged from the prior exam. Interval left subclavian central venous catheter removal. There is pulmonary venous congestion and mild pulmonary edema. There is a right basilar infiltrate. There are small bilateral pleural effusions. Degenerative change of the thoracic spine is noted. IMPRESSION: There is pulmonary venous congestion and mild pulmonary edema. There is a right basilar infiltrate. There are small bilateral pleural effusions. Report Dictated on Final Dictated: 05/01/2018 9:02 am Dictating Physician: MD CORONA NICHOLAS Signed Date and Time: 05/01/2018 9:04 am Signed by: MD CORONA NICHOLAS Transcribed Date and Time: 05/01/2018 9:02 HEMOGRAM W/ AUTODIFF Collected: 05/01/2018 Status: F Source: [facility] 3:50 AM SYSTEM REPOSITORY TYPE CODE TESTS RESULT OUT OF REFERENCE UNITS RANGE LAB IWBC 3.6-10.7 10*3/uL WBC Normal 9.9 LAB RBC 4.40-5.90 10*6/uL Low RBC 2.83 LAB HGB 13.0-18.0 g/dL Low Hemoglobin 9.2 LAB HCT 40.0-52.0 % Low Hematocrit 26.2 LAB MCV 80.0-98.0 fL MCV Normal 92.7 LAB MCH 26.0-34.0 pg MCH Normal 32.7 LAB MCHC 32.0-36.0 % MCHC Normal 35.2 LAB RDW 11.5-14.5 % RDW Normal 14.2 LAB PLT 140-440 10*3/uL Platelet High 554 LAB MPV 7.4-10.4 fL MPV Normal 8.2 LAB GRAN% 40.0-80.0 % Granulocytes Normal 75.2 LAB LYMP% 20.0-40.0 % Low Lymphocytes 13.6 LAB MONO% 2.0-10.0 % Monocytes High 10.2 LAB EOS% 1.0-6.0 % Low Eosinophils 0.5 LAB BAS% 0.0-2.0 % Basophils Normal 0.5 LAB ANC 1.8-7.0 10*3/uL Abs High Neutrophile Cnt 7.4 LAB ALC 1.0-4.3 10*3/uL Abs Lymph Cnt Normal 1.3 LAB AMC 0.0-0.8 10*3/uL Abs Monocyte High Cnt 1.0 LAB AEC 0.0-0.5 10*3/uL Abs Eosin Cnt Normal 0.1 LAB ABC 0.0-0.2 10*3/uL Abs Baso Cnt Normal 0.0 Performed By: #### HEMDF, BMP3, MG3, PHOS3 #### [facility] [address] [place] [phone] BASIC METABOLIC PANEL Collected: 05/01/2018 Status: F Source: [facility] 3:50 AM SYSTEM REPOSITORY TYPE CODE TESTS RESULT OUT OF RANGE REFERENCE UNITS LAB NA3 137-145 mmol/L Low Sodium 132 LAB K3 3.5-5.1 mmol/L Normal Potassium 3.9 LAB CL3 98-107 mmol/L Chloride Normal 105 LAB CO23 22-30 mmol/L Low Carbon Dioxide 20 LAB ANIN3 NA Anion Gap 7 LAB GLUC3 70-100 mg/dL High Glucose 106 LAB BUN3 7-20 mg/dL Urea Normal Nitrogen 12 LAB CRET3 0.52-1.25 mg/dL Normal Creatinine 0.64 LAB GF3BR >60 mL/min eGFR > 60.0 LAB GF3WR >60 mL/min eGFR OTHER > 60.0 Result Comment: Source- MDRD equation with creatinine calibration to IDMS(NKDEP) eGFR not recommended for drug dose adjustment LAB CA3 8.4-10.4 mg/dL Low Calcium 7.6 Performed By: #### HEMDF, BMP3, MG3, PHOS3 #### [facility] [address] [place] [phone] MAGNESIUM Collected: 05/01/2018 Status: F Source: [facility] 3:50 AM SYSTEM REPOSITORY TYPE CODE TESTS RESULT OUT OF RANGE REFERENCE UNITS LAB MG3 1.6-2.3 mg/dL Normal Magnesium 1.7 Performed By: #### HEMDF, BMP3, MG3, PHOS3 #### [facility] [address] [place] [phone] PHOSPHORUS Collected: 05/01/2018 Status: F Source: [facility] 3:50 AM SYSTEM REPOSITORY TYPE CODE TESTS RESULT OUT OF RANGE REFERENCE UNITS LAB PHOS3 2.5-4.5 mg/dL Normal Phosphorus 2.9 Performed By: #### HEMDF, BMP3, MG3, PHOS3 #### [facility] [address] [place] [phone] Observed: 04/30/2018 Status: F Source: [facility] CLOSTRIDIUM DIFFICILE 7:44 PM SYSTEM REPOSITORY PCR Order Comment: Specimen Source Comment:Stool Clostridium difficile by PCR --> Status: F NEGATIVE Methodology - Real Time PCR (Cepheid) Clinical judgement must be used when interpreting results. Positive results may reflect colonization. Indeterminate results suggest a new specimen be submitted. Methodology - Real Time PCR (Cepheid) Clinical judgement must be used when interpreting results. Positive results may reflect colonization. Indeterminate results suggest a new specimen be submitted. Performed By: #### CDPCR #### [facility] [address] [place], [place] [phone] BASIC METABOLIC PANEL Collected: 04/30/2018 Status: F Source: [facility] 5:18 AM SYSTEM REPOSITORY TYPE CODE TESTS RESULT OUT OF RANGE REFERENCE UNITS LAB NA3 137-145 mmol/L Low Sodium 134 LAB K3 3.5-5.1 mmol/L Normal Potassium 4.3 LAB CL3 98-107 mmol/L Chloride Normal 106 LAB CO23 22-30 mmol/L Carbon Normal Dioxide 22 LAB ANIN3 NA Anion Gap 6 LAB GLUC3 70-100 mg/dL High Glucose 110 LAB BUN3 7-20 mg/dL Urea Normal Nitrogen 12 LAB CRET3 0.52-1.25 mg/dL Normal Creatinine 0.65 LAB GF3BR >60 mL/min eGFR > 60.0 LAB GF3WR >60 mL/min eGFR OTHER > 60.0 Result Comment: Source- MDRD equation with creatinine calibration to IDMS(NKDEP) eGFR not recommended for drug dose adjustment LAB CA3 8.4-10.4 mg/dL Low Calcium 7.8 Performed By: #### HEMDF, BMP3, MG3, PHOS3 #### [facility] [address] [place] [address] MAGNESIUM Collected: 04/30/2018 Status: F Source: [facility] 5:18 AM SYSTEM REPOSITORY TYPE CODE TESTS RESULT OUT OF RANGE REFERENCE UNITS LAB MG3 1.6-2.3 mg/dL Normal Magnesium 1.8 Performed By: #### HEMDF, BMP3, MG3, PHOS3 #### [facility] [address] [place] [address] PHOSPHORUS Collected: 04/30/2018 Status: F Source: [facility] 5:18 AM SYSTEM REPOSITORY TYPE CODE TESTS RESULT OUT OF RANGE REFERENCE UNITS LAB PHOS3 2.5-4.5 mg/dL Normal Phosphorus 3.0 Performed By: #### HEMDF, BMP3, MG3, PHOS3 #### [facility] [address] [place] [address] HEMOGRAM W/ AUTODIFF Collected: 04/30/2018 Status: F Source: [facility] 5:17 AM SYSTEM REPOSITORY TYPE CODE TESTS RESULT OUT OF REFERENCE UNITS RANGE LAB IWBC 3.6-10.7 10*3/uL WBC High 12.1 LAB RBC 4.40-5.90 10*6/uL Low RBC 3.28 LAB HGB 13.0-18.0 g/dL Low Hemoglobin 10.4 LAB HCT 40.0-52.0 % Low Hematocrit 30.2 LAB MCV 80.0-98.0 fL MCV Normal 92.2 LAB MCH 26.0-34.0 pg MCH Normal 31.7 LAB MCHC 32.0-36.0 % MCHC Normal 34.4 LAB RDW 11.5-14.5 % RDW Normal 14.5 LAB PLT 140-440 10*3/uL Platelet High 607 LAB MPV 7.4-10.4 fL MPV Normal 8.3 LAB GRAN% 40.0-80.0 % Granulocytes Normal 76.2 LAB LYMP% 20.0-40.0 % Low Lymphocytes 12.5 LAB MONO% 2.0-10.0 % Monocytes High 10.4 LAB EOS% 1.0-6.0 % Low Eosinophils 0.4 LAB BAS% 0.0-2.0 % Basophils Normal 0.5 LAB ANC 1.8-7.0 10*3/uL Abs High Neutrophile Cnt 9.2 LAB ALC 1.0-4.3 10*3/uL Abs Lymph Cnt Normal 1.5 LAB AMC 0.0-0.8 10*3/uL Abs Monocyte High Cnt 1.3 LAB AEC 0.0-0.5 10*3/uL Abs Eosin Cnt Normal 0.0 LAB ABC 0.0-0.2 10*3/uL Abs Baso Cnt Normal 0.1 Performed By: #### HEMDF, BMP3, MG3, PHOS3 #### [facility] [address] [address] HEMOGRAM W/ AUTODIFF Collected: 04/29/2018 Status: F Source: [facility] 4:33 AM SYSTEM REPOSITORY TYPE CODE TESTS RESULT OUT OF REFERENCE UNITS RANGE LAB IWBC 3.6-10.7 10*3/uL WBC High 13.4 LAB RBC 4.40-5.90 10*6/uL Low RBC 3.28 LAB HGB 13.0-18.0 g/dL Low Hemoglobin 10.6 LAB HCT 40.0-52.0 % Low Hematocrit 30.0 LAB MCV 80.0-98.0 fL MCV Normal 91.7 LAB MCH 26.0-34.0 pg MCH Normal 32.3 LAB MCHC 32.0-36.0 % MCHC Normal 35.2 LAB RDW 11.5-14.5 % RDW Normal 14.1 LAB PLT 140-440 10*3/uL Platelet High 587 LAB MPV 7.4-10.4 fL MPV Normal 8.4 LAB GRAN% 40.0-80.0 % Granulocytes High 82.0 LAB LYMP% 20.0-40.0 % Low Lymphocytes 10.3 LAB MONO% 2.0-10.0 % Monocytes Normal 6.9 LAB EOS% 1.0-6.0 % Low Eosinophils 0.4 LAB BAS% 0.0-2.0 % Basophils Normal 0.4 LAB ANC 1.8-7.0 10*3/uL Abs High Neutrophile Cnt 11.0 LAB ALC 1.0-4.3 10*3/uL Abs Lymph Cnt Normal 1.4 LAB AMC 0.0-0.8 10*3/uL Abs Monocyte High Cnt 0.9 LAB AEC 0.0-0.5 10*3/uL Abs Eosin Cnt Normal 0.1 LAB ABC 0.0-0.2 10*3/uL Abs Baso Cnt Normal 0.0 Performed By: #### HEMDF, BMP3, MG3, PHOS3 #### [facility] [address] [place] [phone] BASIC METABOLIC PANEL Collected: 04/29/2018 Status: F Source: [facility] 4:33 AM SYSTEM REPOSITORY TYPE CODE TESTS RESULT OUT OF RANGE REFERENCE UNITS LAB NA3 137-145 mmol/L Low Sodium 133 LAB K3 3.5-5.1 mmol/L Normal Potassium 4.3 LAB CL3 98-107 mmol/L Chloride Normal 106 LAB CO23 22-30 mmol/L Carbon Normal Dioxide 22 LAB ANIN3 NA Anion Gap 4 LAB GLUC3 70-100 mg/dL High Glucose 138 LAB BUN3 7-20 mg/dL Urea Normal Nitrogen 12 LAB CRET3 0.52-1.25 mg/dL Normal Creatinine 0.67 LAB GF3BR >60 mL/min eGFR > 60.0 LAB GF3WR >60 mL/min eGFR OTHER > 60.0 Result Comment: Source- MDRD equation with creatinine calibration to IDMS(NKDEP) eGFR not recommended for drug dose adjustment LAB CA3 8.4-10.4 mg/dL Low Calcium 7.6 Performed By: #### HEMDF, BMP3, MG3, PHOS3 #### [facility] [employer] [address] [address] MAGNESIUM Collected: 04/29/2018 Status: F Source: [facility] 4:33 AM SYSTEM REPOSITORY TYPE CODE TESTS RESULT OUT OF RANGE REFERENCE UNITS LAB MG3 1.6-2.3 mg/dL Normal Magnesium 1.9 Performed By: #### HEMDF, BMP3, MG3, PHOS3 #### [facility] [address] [address] PHOSPHORUS Collected: 04/29/2018 Status: F Source: [facility] 4:33 AM SYSTEM REPOSITORY TYPE CODE TESTS RESULT OUT OF RANGE REFERENCE UNITS LAB PHOS3 2.5-4.5 mg/dL Normal Phosphorus 2.6 Performed By: #### HEMDF, BMP3, MG3, PHOS3 #### [facility] [employer] [address] [address] HEMOGRAM W/ AUTODIFF Collected: 04/28/2018 Status: F Source: [facility] 5:11 AM SYSTEM REPOSITORY TYPE CODE TESTS RESULT OUT OF REFERENCE UNITS RANGE LAB IWBC 3.6-10.7 10*3/uL WBC High 11.4 LAB RBC 4.40-5.90 10*6/uL Low RBC 3.29 LAB HGB 13.0-18.0 g/dL Low Hemoglobin 10.6 LAB HCT 40.0-52.0 % Low Hematocrit 30.5 LAB MCV 80.0-98.0 fL MCV Normal 92.8 LAB MCH 26.0-34.0 pg MCH Normal 32.1 LAB MCHC 32.0-36.0 % MCHC Normal 34.6 LAB RDW 11.5-14.5 % RDW Normal 13.9 LAB PLT 140-440 10*3/uL Platelet High 514 LAB MPV 7.4-10.4 fL MPV Normal 8.7 LAB GRAN% 40.0-80.0 % Granulocytes Normal 80.0 LAB LYMP% 20.0-40.0 % Low Lymphocytes 11.2 LAB MONO% 2.0-10.0 % Monocytes Normal 7.2 LAB EOS% 1.0-6.0 % Eosinophils Normal 1.2 LAB BAS% 0.0-2.0 % Basophils Normal 0.4 LAB ANC 1.8-7.0 10*3/uL Abs High Neutrophile Cnt 9.1 LAB ALC 1.0-4.3 10*3/uL Abs Lymph Cnt Normal 1.3 LAB AMC 0.0-0.8 10*3/uL Abs Monocyte Normal Cnt 0.8 LAB AEC 0.0-0.5 10*3/uL Abs Eosin Cnt Normal 0.1 LAB ABC 0.0-0.2 10*3/uL Abs Baso Cnt Normal 0.0 Performed By: #### HEMDF, BMP3, MG3, PHOS3 #### [facility] [address] [place] [phone] BASIC METABOLIC PANEL Collected: 04/28/2018 Status: F Source: [facility] 5:11 AM SYSTEM REPOSITORY TYPE CODE TESTS RESULT OUT OF RANGE REFERENCE UNITS LAB NA3 137-145 mmol/L Low Sodium 133 LAB K3 3.5-5.1 mmol/L Normal Potassium 4.2 LAB CL3 98-107 mmol/L Chloride Normal 104 LAB CO23 22-30 mmol/L Carbon Normal Dioxide 22 LAB ANIN3 NA Anion Gap 6 LAB GLUC3 70-100 mg/dL High Glucose 108 LAB BUN3 7-20 mg/dL Urea Normal Nitrogen 16 LAB CRET3 0.52-1.25 mg/dL Normal Creatinine 0.74 LAB GF3BR >60 mL/min eGFR > 60.0 LAB GF3WR >60 mL/min eGFR OTHER > 60.0 Result Comment: Source- MDRD equation with creatinine calibration to IDMS(NKDEP) eGFR not recommended for drug dose adjustment LAB CA3 8.4-10.4 mg/dL Low Calcium 7.9 Performed By: #### HEMDF, BMP3, MG3, PHOS3 #### [facility] [address] [place] [phone] MAGNESIUM Collected: 04/28/2018 Status: F Source: [facility] 5:11 AM SYSTEM REPOSITORY TYPE CODE TESTS RESULT OUT OF RANGE REFERENCE UNITS LAB MG3 1.6-2.3 mg/dL Normal Magnesium 1.9 Performed By: #### HEMDF, BMP3, MG3, PHOS3 #### [facility] [address] [place] [phone] PHOSPHORUS Collected: 04/28/2018 Status: F Source: [facility] 5:11 AM SYSTEM REPOSITORY TYPE CODE TESTS RESULT OUT OF RANGE REFERENCE UNITS LAB PHOS3 2.5-4.5 mg/dL Normal Phosphorus 3.1 Performed By: #### HEMDF, BMP3, MG3, PHOS3 #### [facility] [address] [place] [address] CR ABDOMEN AP Observed: 04/27/2018 Status: F Source: [facility] 7:32 AM SYSTEM REPOSITORY Patient Name: LUCAS EAST Diagnostic Radiology Exam Date/Time 04/27/2018 07:05:20 EDT Exam CR Abdomen AP Ordering Physician [id number] LOVE Accession Number [id number] CPT4 Codes 34779 () Reason For Exam ileus Report Abdomen KUB Clinical: Ileus COMPARISON: April 26, 2018 Two supine partial views of the abdomen were obtained. There is redemonstration of multiple dilated small bowel loops, similar to the prior day's exam. No abnormal colonic distention is noted. Surgical clips are seen within the lower pelvis on the right and skin bailey are seen along midline. Evaluation for free air is limited due to lack of upright or lateral decubitus views. Feeding tube tip overlies the stomach. Osseous degenerative changes. IMPRESSION: Redemonstration of multiple dilated small bowel loops throughout the abdomen, suggesting small bowel ileus versus obstruction. Report Dictated on Final Dictated: 04/27/2018 7:32 am Dictating Physician: MD HYLTON BRIAN Signed Date and Time: 04/27/2018 7:34 am Signed by: MD HYLTON BRIAN Transcribed Date and Time: 04/27/2018 7:32 HEMOGRAM W/ AUTODIFF Collected: 04/27/2018 Status: F Source: [facility] 2:38 AM SYSTEM REPOSITORY TYPE CODE TESTS RESULT OUT OF REFERENCE UNITS RANGE LAB IWBC 3.6-10.7 10*3/uL WBC High 12.9 LAB RBC 4.40-5.90 10*6/uL Low RBC 3.45 LAB HGB 13.0-18.0 g/dL Low Hemoglobin 10.9 LAB HCT 40.0-52.0 % Low Hematocrit 32.0 LAB MCV 80.0-98.0 fL MCV Normal 92.6 LAB MCH 26.0-34.0 pg MCH Normal 31.7 LAB MCHC 32.0-36.0 % MCHC Normal 34.2 LAB RDW 11.5-14.5 % RDW Normal 14.1 LAB PLT 140-440 10*3/uL Platelet High 442 LAB MPV 7.4-10.4 fL MPV Normal 8.9 LAB GRAN% 40.0-80.0 % Granulocytes High 81.0 LAB LYMP% 20.0-40.0 % Low Lymphocytes 10.9 LAB MONO% 2.0-10.0 % Monocytes Normal 6.8 LAB EOS% 1.0-6.0 % Low Eosinophils 0.8 LAB BAS% 0.0-2.0 % Basophils Normal 0.5 LAB ANC 1.8-7.0 10*3/uL Abs High Neutrophile Cnt 10.4 LAB ALC 1.0-4.3 10*3/uL Abs Lymph Cnt Normal 1.4 LAB AMC 0.0-0.8 10*3/uL Abs Monocyte High Cnt 0.9 LAB AEC 0.0-0.5 10*3/uL Abs Eosin Cnt Normal 0.1 LAB ABC 0.0-0.2 10*3/uL Abs Baso Cnt Normal 0.1 Performed By: #### HEMDF, BMP3, MG3, PHOS3 #### [facility] [address] [place] [phone] BASIC METABOLIC PANEL Collected: 04/27/2018 Status: F Source: [facility] 2:38 AM SYSTEM REPOSITORY TYPE CODE TESTS RESULT OUT OF RANGE REFERENCE UNITS LAB NA3 137-145 mmol/L Low Sodium 134 LAB K3 3.5-5.1 mmol/L Normal Potassium 4.2 LAB CL3 98-107 mmol/L Chloride Normal 103 LAB CO23 22-30 mmol/L Carbon Normal Dioxide 25 LAB ANIN3 NA Anion Gap 6 LAB GLUC3 70-100 mg/dL Glucose Normal 91 LAB BUN3 7-20 mg/dL Urea Normal Nitrogen 16 LAB CRET3 0.52-1.25 mg/dL Normal Creatinine 0.73 LAB GF3BR >60 mL/min eGFR > 60.0 LAB GF3WR >60 mL/min eGFR OTHER > 60.0 Result Comment: Source- MDRD equation with creatinine calibration to IDMS(NKDEP) eGFR not recommended for drug dose adjustment LAB CA3 8.4-10.4 mg/dL Low Calcium 7.9 Performed By: #### HEMDF, BMP3, MG3, PHOS3 #### [facility] [address] [place] [address] MAGNESIUM Collected: 04/27/2018 Status: F Source: [facility] 2:38 AM SYSTEM REPOSITORY TYPE CODE TESTS RESULT OUT OF RANGE REFERENCE UNITS LAB MG3 1.6-2.3 mg/dL Normal Magnesium 2.0 Performed By: #### HEMDF, BMP3, MG3, PHOS3 #### [facility] [address] [place] [address] PHOSPHORUS Collected: 04/27/2018 Status: F Source: [facility] 2:38 AM SYSTEM REPOSITORY TYPE CODE TESTS RESULT OUT OF RANGE REFERENCE UNITS LAB PHOS3 2.5-4.5 mg/dL Normal Phosphorus 2.9 Performed By: #### HEMDF, BMP3, MG3, PHOS3 #### [facility] [address] [place] [address] CR ABDOMEN AP Observed: 04/26/2018 Status: F Source: [facility] 4:01 PM SYSTEM REPOSITORY Patient Name: LUCAS EAST Diagnostic Radiology Exam Date/Time 04/26/2018 14:21:47 EDT Exam CR Abdomen AP Ordering Physician ETTA LUTZ Accession Number [id number] CPT4 Codes 95009 () Reason For Exam ileus Report ABDOMEN: CLINICAL INDICATION: Ileus. Nausea and pain. TECHNIQUE: Supine abdomen and pelvis COMPARISON: Abdominal radiographs 04/25/2018 and 04/24/2018 FINDINGS: There is been an interval increase in size and number of dilated small bowel loops containing gas. There are again seen skin bailey projecting about the midline of the abdomen and the right groin. Evaluation of the right lower abdominal quadrant is limited by an overlying electronic device. IMPRESSION: 1. Interval increase in size and number of dilated small bowel loops throughout the abdomen. These findings are concerning for worsening ileus or bowel obstruction. Report Dictated on Workstation: [id number] Final Dictated: 04/26/2018 4:01 pm Dictating Physician: MD MARILY, POOJA WASHINGTON Signed Date and Time: 04/26/2018 4:03 pm Signed by: MD CALIXTO GEORGE RICHARD Transcribed Date and Time: 04/26/2018 4:01 ADD ON TEST FROM Collected: 04/26/2018 Status: F Source: [facility] 11:44 AM SYSTEM REPOSITORY TYPE CODE TESTS RESULT OUT OF REFERENCE UNITS RANGE LAB ADDON NA Add Accepted on test from HIS Result Comment: Specimen available & acceptable for analysis. Performed By: #### ADDON #### [facility] [address] [place] [address] HEMOGRAM W/ AUTODIFF Collected: 04/26/2018 Status: F Source: [facility] 4:17 AM SYSTEM REPOSITORY TYPE CODE TESTS RESULT OUT OF REFERENCE UNITS RANGE LAB IWBC 3.6-10.7 10*3/uL WBC High 13.9 LAB RBC 4.40-5.90 10*6/uL Low RBC 3.80 LAB HGB 13.0-18.0 g/dL Low Hemoglobin 12.0 LAB HCT 40.0-52.0 % Low Hematocrit 34.9 LAB MCV 80.0-98.0 fL MCV Normal 91.8 LAB MCH 26.0-34.0 pg MCH Normal 31.7 LAB MCHC 32.0-36.0 % MCHC Normal 34.5 LAB RDW 11.5-14.5 % RDW Normal 13.9 LAB PLT 140-440 10*3/uL Platelet Normal 419 LAB MPV 7.4-10.4 fL MPV Normal 8.9 LAB GRAN% 40.0-80.0 % Granulocytes High 82.7 LAB LYMP% 20.0-40.0 % Low Lymphocytes 10.7 LAB MONO% 2.0-10.0 % Monocytes Normal 5.9 LAB EOS% 1.0-6.0 % Low Eosinophils 0.5 LAB BAS% 0.0-2.0 % Basophils Normal 0.2 LAB ANC 1.8-7.0 10*3/uL Abs High Neutrophile Cnt 11.5 LAB ALC 1.0-4.3 10*3/uL Abs Lymph Cnt Normal 1.5 LAB AMC 0.0-0.8 10*3/uL Abs Monocyte Normal Cnt 0.8 LAB AEC 0.0-0.5 10*3/uL Abs Eosin Cnt Normal 0.1 LAB ABC 0.0-0.2 10*3/uL Abs Baso Cnt Normal 0.0 Performed By: #### HEMDF, BMP3, MG3, PHOS3, PCAL #### [facility] [address] [place] [phone] BASIC METABOLIC PANEL Collected: 04/26/2018 Status: F Source: [facility] 4:17 AM SYSTEM REPOSITORY TYPE CODE TESTS RESULT OUT OF RANGE REFERENCE UNITS LAB NA3 137-145 mmol/L Low Sodium 136 LAB K3 3.5-5.1 mmol/L Normal Potassium 4.2 LAB CL3 98-107 mmol/L Chloride Normal 102 LAB CO23 22-30 mmol/L Carbon Normal Dioxide 29 LAB ANIN3 NA Anion Gap 6 LAB GLUC3 70-100 mg/dL High Glucose 131 LAB BUN3 7-20 mg/dL Urea Normal Nitrogen 17 LAB CRET3 0.52-1.25 mg/dL Normal Creatinine 0.74 LAB GF3BR >60 mL/min eGFR > 60.0 LAB GF3WR >60 mL/min eGFR OTHER > 60.0 Result Comment: Source- MDRD equation with creatinine calibration to IDMS(NKDEP) eGFR not recommended for drug dose adjustment LAB CA3 8.4-10.4 mg/dL Low Calcium 8.1 Performed By: #### HEMDF, BMP3, MG3, PHOS3, PCAL #### [facility] [address] [place] [phone] MAGNESIUM Collected: 04/26/2018 Status: F Source: [facility] 4:17 AM SYSTEM REPOSITORY TYPE CODE TESTS RESULT OUT OF RANGE REFERENCE UNITS LAB MG3 1.6-2.3 mg/dL Normal Magnesium 2.1 Performed By: #### HEMDF, BMP3, MG3, PHOS3, PCAL #### [facility] [address] [place] [phone] PHOSPHORUS Collected: 04/26/2018 Status: F Source: [facility] 4:17 AM SYSTEM REPOSITORY TYPE CODE TESTS RESULT OUT OF RANGE REFERENCE UNITS LAB PHOS3 2.5-4.5 mg/dL Normal Phosphorus 3.0 Performed By: #### HEMDF, BMP3, MG3, PHOS3, PCAL #### [facility] [address] [place] [address] PROCALCITONIN Collected: 04/26/2018 Status: F Source: [facility] 4:17 AM SYSTEM REPOSITORY TYPE CODE TESTS RESULT OUT OF RANGE REFERENCE UNITS LAB PRO <0.10 ng/mL Procalcitonin Abnormal 4.00 LAB INT3 NA Interpretation See Below Result Comment: PCT <0.50 = Low risk of severe sepsis and/or septic shock. PCT >2.00 = High risk of severe sepsis and/or septic shock. Performed By: #### HEMDF, BMP3, MG3, PHOS3, PCAL #### [facility] [address] [place] [address] CR ABDOMEN AP Observed: 04/25/2018 Status: F Source: [facility] 8:58 AM SYSTEM REPOSITORY Patient Name: LUCAS EAST Diagnostic Radiology Exam Date/Time 04/25/2018 07:58:20 EDT Exam CR Abdomen AP Ordering Physician ETTA LUTZ Accession Number [id number] CPT4 Codes 49852 () Reason For Exam ileus Report Clinical Information: Abdominal pain. Ileus. Abdomen, KUB: AP supine views the abdomen compared to the examination of the previous day. The distal end of a new endogastric tube is seen with the sidehole in the gastric cardia region and the tip in the lateral aspect fundus. Multiple mildly dilated loops of gas containing small bowel are again seen in the mid and lower abdomen slightly decreased from prior examination. A small amount of gas is seen within normal caliber right and left colon and the rectal vault. There is no obvious free intraperitoneal gas on limited evaluation. No suspect calcification, organomegaly or soft tissue mass is seen. There is a vertical line of surgical skin bailey of the lower abdomen and upper pelvis to the left of midline. Impression: 1. Endogastric tube position as described. 2. Mildly dilated loops of gas containing small bowel, slightly decreased, and small amounts of gas within normal caliber colon. The pattern is nonspecific and compatible with small bowel ileus or partial small bowel obstruction. 3. No other significant radiographic abnormality. Report Dictated on Final Dictated: 04/25/2018 8:58 am Dictating Physician: MD PORTILLO HARLAN Signed Date and Time: 04/25/2018 9:02 am Signed by: MD PORTILLO HARLAN Transcribed Date and Time: 04/25/2018 8:58 HEMOGRAM W/ AUTODIFF Collected: 04/25/2018 Status: F Source: [facility] 4:10 AM SYSTEM REPOSITORY TYPE CODE TESTS RESULT OUT OF REFERENCE UNITS RANGE LAB IWBC 3.6-10.7 10*3/uL WBC High 15.8 LAB RBC 4.40-5.90 10*6/uL Low RBC 3.46 LAB HGB 13.0-18.0 g/dL Low Hemoglobin 10.9 LAB HCT 40.0-52.0 % Low Hematocrit 31.9 LAB MCV 80.0-98.0 fL MCV Normal 92.2 LAB MCH 26.0-34.0 pg MCH Normal 31.6 LAB MCHC 32.0-36.0 % MCHC Normal 34.3 LAB RDW 11.5-14.5 % RDW Normal 13.9 LAB PLT 140-440 10*3/uL Platelet Normal 364 LAB MPV 7.4-10.4 fL MPV Normal 8.7 LAB GRAN% 40.0-80.0 % Granulocytes High 84.5 LAB LYMP% 20.0-40.0 % Low Lymphocytes 9.5 LAB MONO% 2.0-10.0 % Monocytes Normal 4.6 LAB EOS% 1.0-6.0 % Eosinophils Normal 1.0 LAB BAS% 0.0-2.0 % Basophils Normal 0.4 LAB ANC 1.8-7.0 10*3/uL Abs High Neutrophile Cnt 13.4 LAB ALC 1.0-4.3 10*3/uL Abs Lymph Cnt Normal 1.5 LAB AMC 0.0-0.8 10*3/uL Abs Monocyte Normal Cnt 0.7 LAB AEC 0.0-0.5 10*3/uL Abs Eosin Cnt Normal 0.2 LAB ABC 0.0-0.2 10*3/uL Abs Baso Cnt Normal 0.1 Performed By: #### HEMDF, BMP3, MG3, PHOS3 #### [facility] [address] [place] [phone] BASIC METABOLIC PANEL Collected: 04/25/2018 Status: F Source: [facility] 4:10 AM SYSTEM REPOSITORY TYPE CODE TESTS RESULT OUT OF RANGE REFERENCE UNITS LAB NA3 137-145 mmol/L Sodium Normal 137 LAB K3 3.5-5.1 mmol/L Normal Potassium 3.9 LAB CL3 98-107 mmol/L Chloride Normal 103 LAB CO23 22-30 mmol/L Carbon Normal Dioxide 27 LAB ANIN3 NA Anion Gap 6 LAB GLUC3 70-100 mg/dL High Glucose 109 LAB BUN3 7-20 mg/dL Urea Normal Nitrogen 20 LAB CRET3 0.52-1.25 mg/dL Normal Creatinine 0.79 LAB GF3BR >60 mL/min eGFR > 60.0 LAB GF3WR >60 mL/min eGFR OTHER > 60.0 Result Comment: Source- MDRD equation with creatinine calibration to IDMS(NKDEP) eGFR not recommended for drug dose adjustment LAB CA3 8.4-10.4 mg/dL Low Calcium 8.1 Performed By: #### HEMDF, BMP3, MG3, PHOS3 #### [facility] [address] [place] [id number] MAGNESIUM Collected: 04/25/2018 Status: F Source: [facility] 4:10 AM SYSTEM REPOSITORY TYPE CODE TESTS RESULT OUT OF RANGE REFERENCE UNITS LAB MG3 1.6-2.3 mg/dL Normal Magnesium 2.1 Performed By: #### HEMDF, BMP3, MG3, PHOS3 #### [facility] [address] [place] [id number] PHOSPHORUS Collected: 04/25/2018 Status: F Source: [facility] 4:10 AM SYSTEM REPOSITORY TYPE CODE TESTS RESULT OUT OF RANGE REFERENCE UNITS LAB PHOS3 2.5-4.5 mg/dL Normal Phosphorus 3.5 Performed By: #### HEMDF, BMP3, MG3, PHOS3 #### [facility] [address] [place] [id number] CR ABDOMEN AP Observed: 04/24/2018 Status: F Source: [facility] 3:06 PM SYSTEM REPOSITORY Patient Name: LUCAS EAST Diagnostic Radiology Exam Date/Time 04/24/2018 13:10:16 EDT Exam CR Abdomen AP Ordering Physician [id number] SAURABHDELANO Accession Number [id number] CPT4 Codes 21503 () Reason For Exam ileus Report ABDOMEN: CLINICAL INDICATION: Ileus. TECHNIQUE: Supine abdomen and pelvis COMPARISON: Abdominal radiographs 04/22/2018 FINDINGS: Again seen are dilated loops of small bowel within the midabdomen, increased compared to 04/22/2018. There is no gas visualized in the rectum. Again seen are skin bailey overlying the right pelvis and in the low abdominal midline. No definite free gas, however, evaluation is limited by lack of an upright or lateral decubitus view. IMPRESSION: 1. Dilated loops of small bowel, increased compared to 04/22/2018. These findings may represent persistent ileus, however, they could also represent developing small bowel obstruction. Report Dictated on Final Dictated: 04/24/2018 3:06 pm Dictating Physician: MD CALIXTO GEORGE RICHARD Signed Date and Time: 04/24/2018 3:08 pm Signed by: MD CALIXTO GEORGE RICHARD Transcribed Date and Time: 04/24/2018 3:06 BASIC METABOLIC PANEL Collected: 04/24/2018 Status: F Source: [facility] 3:00 AM SYSTEM REPOSITORY TYPE CODE TESTS RESULT OUT OF RANGE REFERENCE UNITS LAB NA3 137-145 mmol/L Sodium Normal 137 LAB K3 3.5-5.1 mmol/L Normal Potassium 3.9 LAB CL3 98-107 mmol/L Chloride Normal 106 LAB CO23 22-30 mmol/L Carbon Normal Dioxide 27 LAB ANIN3 NA Anion Gap 4 LAB GLUC3 70-100 mg/dL High Glucose 105 LAB BUN3 7-20 mg/dL High Urea Nitrogen 23 LAB CRET3 0.52-1.25 mg/dL Normal Creatinine 0.75 LAB GF3BR >60 mL/min eGFR > 60.0 LAB GF3WR >60 mL/min eGFR OTHER > 60.0 Result Comment: Source- MDRD equation with creatinine calibration to IDMS(NKDEP) eGFR not recommended for drug dose adjustment LAB CA3 8.4-10.4 mg/dL Low Calcium 8.0 Performed By: #### BMP3, MG3, PHOS3, MD ELINAIFF #### [facility] [address] [place] [phone] MAGNESIUM Collected: 04/24/2018 Status: F Source: [facility] 3:00 AM SYSTEM REPOSITORY TYPE CODE TESTS RESULT OUT OF REFERENCE UNITS RANGE LAB MG3 1.6-2.3 mg/dL High Magnesium 2.4 Performed By: #### BMP3, MG3, PHOS3, ELINA, IFF #### [facility] [address] [place] [address] PHOSPHORUS Collected: 04/24/2018 Status: F Source: [facility] 3:00 AM SYSTEM REPOSITORY TYPE CODE TESTS RESULT OUT OF RANGE REFERENCE UNITS LAB PHOS3 2.5-4.5 mg/dL Normal Phosphorus 2.9 Performed By: #### CISCO3, MG3, PHOS3, HEMMAURICIO, MDIFF #### [facility] [address] [place] [address] HEMOGRAM W/ AUTODIFF Collected: 04/24/2018 Status: F Source: [facility] 3:00 AM SYSTEM REPOSITORY TYPE CODE TESTS RESULT OUT OF RANGE REFERENCE UNITS LAB IWBC 3.6-10.7 10*3/uL High WBC 14.1 LAB RBC 4.40-5.90 10*6/uL Low RBC 3.30 LAB HGB 13.0-18.0 g/dL Low Hemoglobin 10.6 LAB HCT 40.0-52.0 % Low Hematocrit 30.6 LAB MCV 80.0-98.0 fL MCV Normal 92.6 LAB MCH 26.0-34.0 pg MCH Normal 32.0 LAB MCHC 32.0-36.0 % MCHC Normal 34.6 LAB RDW 11.5-14.5 % RDW Normal 14.1 LAB PLT 140-440 10*3/uL Platelet Normal 283 LAB MPV 7.4-10.4 fL MPV Normal 8.8 Performed By: #### BMP3, MG3, PHOS3, HEMMAURICIO, MDIFF #### [facility] [address] MANUAL DIFF Collected: 04/24/2018 Status: F Source: [facility] 3:00 AM SYSTEM REPOSITORY TYPE CODE TESTS RESULT OUT OF RANGE REFERENCE UNITS LAB NEUTR 40-80 % Normal Seg Neutrophils 80 LAB BANDS 0-3 % High Bands 7 LAB LYMPH 20-40 % Low Lymphocytes 7 LAB MONOC 2-10 % Normal Monocytes 3 LAB EO 1-6 % Normal Eosinophils 1 LAB BASO 0-2 % Normal Basophils 0 LAB META <1 % Metamyelocytes Abnormal 1 LAB MYELO <1 % Myelocytes Abnormal 1 LAB ANCM 2.2-8.2 10*3/uL High Abs Neutrophile Cnt 12.3 LAB ALCM 1.1-4.5 10*3/uL Low Abs Lymph Cnt 1.0 LAB AMCM 0.2-1.1 10*3/uL Normal Abs Monocyte Cnt 0.4 LAB AECM 0.0-0.5 10*3/uL Normal Abs Eosin Cnt 0.1 LAB ABCM 0.0-0.2 10*3/uL Normal Abs Baso Cnt 0.0 LAB RBMOR NA RBC Morphology Normal LAB LIMIT NA Cells counted 100 Performed By: #### BMP3, MG3, PHOS3, HEMDF, MDIFF #### [facility] [address] [place] [phone] PROCALCITONIN Collected: 04/23/2018 Status: F Source: [facility] 2:11 PM SYSTEM REPOSITORY TYPE CODE TESTS RESULT OUT OF RANGE REFERENCE UNITS LAB PRO <0.10 ng/mL Procalcitonin Abnormal 16.05 LAB INT3 NA Interpretation See Below Result Comment: PCT <0.50 = Low risk of severe sepsis and/or septic shock. PCT >2.00 = High risk of severe sepsis and/or septic shock. Performed By: #### PCAL #### [facility] [address] [phone] HEMOGRAM W/ AUTODIFF Collected: 04/23/2018 Status: F Source: [facility] 3:08 AM SYSTEM REPOSITORY TYPE CODE TESTS RESULT OUT OF REFERENCE UNITS RANGE LAB IWBC 3.6-10.7 10*3/uL WBC High 14.3 LAB RBC 4.40-5.90 10*6/uL Low RBC 3.24 LAB HGB 13.0-18.0 g/dL Low Hemoglobin 10.4 LAB HCT 40.0-52.0 % Low Hematocrit 29.9 LAB MCV 80.0-98.0 fL MCV Normal 92.2 LAB MCH 26.0-34.0 pg MCH Normal 32.1 LAB MCHC 32.0-36.0 % MCHC Normal 34.8 LAB RDW 11.5-14.5 % RDW Normal 13.9 LAB PLT 140-440 10*3/uL Platelet Normal 271 LAB MPV 7.4-10.4 fL MPV Normal 8.9 LAB GRAN% 40.0-80.0 % Granulocytes High 89.4 LAB LYMP% 20.0-40.0 % Low Lymphocytes 7.8 LAB MONO% 2.0-10.0 % Monocytes Normal 2.6 LAB EOS% 1.0-6.0 % Low Eosinophils 0.1 LAB BAS% 0.0-2.0 % Basophils Normal 0.1 LAB ANC 1.8-7.0 10*3/uL Abs High Neutrophile Cnt 12.8 LAB ALC 1.0-4.3 10*3/uL Abs Lymph Cnt Normal 1.1 LAB AMC 0.0-0.8 10*3/uL Abs Monocyte Normal Cnt 0.4 LAB AEC 0.0-0.5 10*3/uL Abs Eosin Cnt Normal 0.0 LAB ABC 0.0-0.2 10*3/uL Abs Baso Cnt Normal 0.0 Performed By: #### HEMDF, BMP3, MG3, PHOS3 #### [facility] [address] [place] [phone] BASIC METABOLIC PANEL Collected: 04/23/2018 Status: F Source: [facility] 3:08 AM SYSTEM REPOSITORY TYPE CODE TESTS RESULT OUT OF RANGE REFERENCE UNITS LAB NA3 137-145 mmol/L Sodium Normal 138 LAB K3 3.5-5.1 mmol/L Normal Potassium 3.7 LAB CL3 98-107 mmol/L High Chloride 108 LAB CO23 22-30 mmol/L Carbon Normal Dioxide 26 LAB ANIN3 NA Anion Gap 4 LAB GLUC3 70-100 mg/dL High Glucose 130 LAB BUN3 7-20 mg/dL High Urea Nitrogen 30 LAB CRET3 0.52-1.25 mg/dL Normal Creatinine 0.89 LAB GF3BR >60 mL/min eGFR > 60.0 LAB GF3WR >60 mL/min eGFR OTHER > 60.0 Result Comment: Source- MDRD equation with creatinine calibration to IDMS(NKDEP) eGFR not recommended for drug dose adjustment LAB CA3 8.4-10.4 mg/dL Low Calcium 8.1 Performed By: #### HEMDF, BMP3, MG3, PHOS3 #### [facility] [address] [place] [address] MAGNESIUM Collected: 04/23/2018 Status: F Source: [facility] 3:08 AM SYSTEM REPOSITORY TYPE CODE TESTS RESULT OUT OF REFERENCE UNITS RANGE LAB MG3 1.6-2.3 mg/dL High Magnesium 2.5 Performed By: #### HEMDF, BMP3, MG3, PHOS3 #### [facility] [address] [place] [address] PHOSPHORUS Collected: 04/23/2018 Status: F Source: [facility] 3:08 AM SYSTEM REPOSITORY TYPE CODE TESTS RESULT OUT OF REFERENCE UNITS RANGE LAB PHOS3 2.5-4.5 mg/dL Low Phosphorus 2.1 Performed By: #### HEMDF, BMP3, MG3, PHOS3 #### [facility] [address] [place] [address] CR ABDOMEN AP Observed: 04/22/2018 Status: F Source: [facility] 6:15 PM SYSTEM REPOSITORY Patient Name: LUCAS EAST Diagnostic Radiology Exam Date/Time 04/22/2018 14:35:04 EDT Exam CR Abdomen AP Ordering Physician DELANO TAYLOR Accession Number [id number] CPT4 Codes 44093 () Reason For Exam post-op abdominal pain Report KUB CLINICAL INDICATION: Postop abdominal pain Supine images of the abdomen were obtained. Oral gastric tube tip projects in the body of the stomach. There is patchy small bowel gas with mild dilatation consistent with a mild postoperative ileus. Skin bailey are noted in the midline and also in the right inguinal region. A urinary catheter is placed in the midline in the pelvis. Mild degenerative changes are evident in the spine and hips. IMPRESSION: Mild adynamic ileus Report Dictated on Final Dictated: 04/22/2018 6:15 pm Dictating Physician: MD LAUREANO DIANE Signed Date and Time: 04/22/2018 6:18 pm Signed by: MD LAUREANO DIANE Transcribed Date and Time: 04/22/2018 6:15 CR CHEST 1 VIEW Observed: 04/22/2018 Status: F Source: [facility] FRONTAL 6:12 PM SYSTEM REPOSITORY Patient Name: LUCAS EAST Diagnostic Radiology Exam Date/Time 04/22/2018 14:35:04 EDT Exam CR Chest 1 View Frontal Ordering Physician [id number] DELANO WILEY Accession Number [id number] CPT4 Codes 80484 () Reason For Exam SOB Report PORTABLE CHEST Clinical indication: SOB Comparison: 04/21/2018. Oral gastric tube extends below the diaphragm and off the lower margin of the image. Left subclavian catheter tip projects in the region of the junction of the innominate vein with the superior vena cava, unchanged. Lung volumes are very shallow with minimal bilateral basilar atelectasis. No definite pleural effusions are noted. Cardiac silhouette appears unchanged in size. IMPRESSION: Shallow lung volumes with mild bilateral basilar atelectasis Report Dictated on Final Dictated: 04/22/2018 6:12 pm Dictating Physician: MD LAUREANO DIANE Signed Date and Time: 04/22/2018 6:15 pm Signed by: MD LAUREANO DIANE Transcribed Date and Time: 04/22/2018 6:12 LACTIC ACID Collected: 04/22/2018 Status: F Source: [facility] 2:11 AM SYSTEM REPOSITORY TYPE CODE TESTS RESULT OUT OF RANGE REFERENCE UNITS LAB LACT3 0.7-2.0 mmol/L Normal Lactic Acid 1.6 Performed By: #### PCAL, BMP3M, LACT3 #### [facility] [address] [place] [phone] HEMOGRAM W/ AUTODIFF Collected: 04/22/2018 Status: F Source: [facility] 2:11 AM SYSTEM REPOSITORY TYPE CODE TESTS RESULT OUT OF RANGE REFERENCE UNITS LAB IWBC 3.6-10.7 10*3/uL High WBC 19.0 LAB RBC 4.40-5.90 10*6/uL Low RBC 3.62 LAB HGB 13.0-18.0 g/dL Low Hemoglobin 11.8 LAB HCT 40.0-52.0 % Low Hematocrit 33.8 LAB MCV 80.0-98.0 fL MCV Normal 93.2 LAB MCH 26.0-34.0 pg MCH Normal 32.5 LAB MCHC 32.0-36.0 % MCHC Normal 34.9 LAB RDW 11.5-14.5 % RDW Normal 14.1 LAB PLT 140-440 10*3/uL Platelet Normal 284 LAB MPV 7.4-10.4 fL MPV Normal 9.4 Performed By: #### ENDER ANTOINE MDIFF #### [facility] [address] [place] [address] BASIC METABOLIC PANEL Collected: 04/22/2018 Status: F Source: [facility] 2:11 AM SYSTEM REPOSITORY TYPE CODE TESTS RESULT OUT OF RANGE REFERENCE UNITS LAB NA3 137-145 mmol/L Sodium Normal 137 LAB K3 3.5-5.1 mmol/L Normal Potassium 4.3 LAB CL3 98-107 mmol/L High Chloride 108 LAB CO23 22-30 mmol/L Low Carbon Dioxide 20 LAB ANIN3 NA Anion Gap 9 LAB GLUC3 70-100 mg/dL High Glucose 151 LAB BUN3 7-20 mg/dL High Urea Nitrogen 47 LAB CRET3 0.52-1.25 mg/dL High Creatinine 1.28 LAB GF3BR >60 mL/min eGFR > 60.0 LAB GF3WR >60 mL/min eGFR OTHER 55.4 Result Comment: Source- MDRD equation with creatinine calibration to IDMS(NKDEP) eGFR not recommended for drug dose adjustment LAB CA3 8.4-10.4 mg/dL Low Calcium 8.3 Performed By: #### ENDER ANTOINE MDIFF #### [facility] [address] [place] [address] MANUAL DIFF Collected: 04/22/2018 Status: F Source: [facility] 2:11 AM SYSTEM REPOSITORY TYPE CODE TESTS RESULT OUT OF RANGE REFERENCE UNITS LAB NEUTR 40-80 % Seg Neutrophils Normal 41 LAB BANDS 0-3 % High Bands 51 LAB LYMPH 20-40 % Low Lymphocytes 4 LAB MONOC 2-10 % Low Monocytes 0 LAB EO 1-6 % Low Eosinophils 0 LAB BASO 0-2 % Basophils Normal 0 LAB META <1 % Metamyelocytes Abnormal 4 LAB ANCM 2.2-8.2 10*3/uL High Abs Neutrophile Cnt 17.5 LAB ALCM 1.1-4.5 10*3/uL Low Abs Lymph Cnt 0.8 LAB AMCM 0.2-1.1 10*3/uL Low Abs Monocyte Cnt 0.0 LAB AECM 0.0-0.5 10*3/uL Abs Eosin Cnt Normal 0.0 LAB ABCM 0.0-0.2 10*3/uL Abs Baso Cnt Normal 0.0 LAB RBMOR NA RBC Morphology ABNORMAL LAB HYPOC NA Hypochromia Slight LAB DOHLE NA Dohle Bodies Moderate LAB LIMIT NA Cells counted 100 Performed By: #### ENDER ANTOINE MDIFF #### [facility] [address] [place] [phone] CR CHEST PORTABLE Observed: 04/21/2018 Status: F Source: [facility] 10:37 PM SYSTEM REPOSITORY Patient Name: LUCAS EAST Diagnostic Radiology Exam Date/Time 04/21/2018 19:45:38 EDT Exam CR Chest Portable Ordering Physician MD TOLBERT ALEKSANDAR Accession Number [id number] CPT4 Codes 50855 () Reason For Exam Left subclavian TLC placement Report SINGLE FRONTAL VIEW OF THE CHEST CLINICAL INDICATION: Left subclavian TLC placement TECHNIQUE: Single frontal view of the chest COMPARISON: None FINDINGS: Low lung volumes. Mild bibasilar atelectasis. Heart is mildly enlarged. Left subclavian catheter tip is in the SVC. NG tube tip is not included on the study but is at least as far distal as the gastric fundus. No pneumothorax seen. IMPRESSION: 1. Bibasilar atelectasis. Low lung volumes. Report Dictated on Final Dictated: 04/21/2018 10:37 pm Dictating Physician: MD MONROY JOHN R Signed Date and Time: 04/21/2018 10:39 pm Signed by: MD MONROY JOHN R Transcribed Date and Time: 04/21/2018 10:37 BASIC METABOLIC PANEL Collected: 04/21/2018 Status: F Source: [facility] 7:32 PM SYSTEM REPOSITORY TYPE CODE TESTS RESULT OUT OF RANGE REFERENCE UNITS LAB NA3 137-145 mmol/L Low Sodium 136 LAB K3 3.5-5.1 mmol/L Normal Potassium 4.7 LAB CL3 98-107 mmol/L High Chloride 108 LAB CO23 22-30 mmol/L Low Carbon Dioxide 19 LAB ANIN3 NA Anion Gap 9 LAB GLUC3 70-100 mg/dL High Glucose 121 LAB BUN3 7-20 mg/dL High Urea Nitrogen 49 LAB CRET3 0.52-1.25 mg/dL High Creatinine 1.33 LAB GF3BR >60 mL/min eGFR > 60.0 LAB GF3WR >60 mL/min eGFR OTHER 53.0 Result Comment: Source- MDRD equation with creatinine calibration to IDMS(NKDEP) eGFR not recommended for drug dose adjustment LAB CA3 8.4-10.4 mg/dL Low Calcium 7.8 Performed By: #### PCAL, BMP3M, LACT3 #### [facility] [address] [place] [address] PROCALCITONIN Collected: 04/21/2018 Status: F Source: [facility] 3:03 PM SYSTEM REPOSITORY TYPE CODE TESTS RESULT OUT OF RANGE REFERENCE UNITS LAB PRO <0.10 ng/mL Procalcitonin Abnormal 56.55 LAB INT3 NA Interpretation See Below Result Comment: PCT <0.50 = Low risk of severe sepsis and/or septic shock. PCT >2.00 = High risk of severe sepsis and/or septic shock. Performed By: #### PCAL, BMP3M, LACT3 #### [facility] [address] [place] [phone] LACTIC ACID Collected: 04/21/2018 Status: F Source: [facility] 12:40 PM SYSTEM REPOSITORY TYPE CODE TESTS RESULT OUT OF REFERENCE UNITS RANGE LAB LACT3 0.7-2.0 mmol/L High Alert Lactic Acid 2.3 Result Comment: Repeated Performed By: #### LACT3 #### [facility] [address] [place] [phone] OP NOTE Observed: 04/21/2018 Status: F Source: [facility] 10:43 AM SYSTEM REPOSITORY PATIENT: LUCAS EAST ADMISSION DATE: 04/21/2018 SURGERY DATE: 04/21/2018 DATE OF : 1945 AGE: 73 ADMITTING PHYSICIAN: Albert Tomas DO ATTENDING PHYSICIAN: Albert Tomas DO DICTATING PHYSICIAN: Albert Tomas DO OPERATIVE RECORD Procedures: 1. EXPLORATORY LAPAROTOMY WITH CECECTOMY. 2. APPENDECTOMY. 3. OPEN RIGHT STRANGULATED HERNIA REPAIR WITH MESH. 4. RIGHT INGUINAL ORCHIECTOMY. Preoperative Diagnosis: Incarcerated right inguinal hernia. Postoperative Diagnoses: 1. Strangulated right inguinal hernia. 2. Ischemic orchitis. 3. Cecal ischemia. Anesthesia: General. Sawmill Manager: Dr. Jay Shah. Complications: None. Estimated Blood Loss: Approximately 200 cc. Details: The patient is a very pleasant 73-year-old gentleman who presents to [facility] with right testicular and groin pain for approximately 4 days. He was at an outside facility where CT scan revealed free fluid in the abdominal cavity, incarcerated right inguinal hernia with also free air in the abdominal cavity. The patient was sent [facility] where he was emergently taken to surgery. Time-out was performed. Preoperative discussion was had with the patient. After appropriate prep and drape, we made a midline laparotomy incision. The incision was taken down to subcutaneous tissues to the intra-abdominal fascia. The fascia was opened in the midline to enter the abdominal cavity. The patient was noted to have extremely distended small intestine throughout. The small intestine was eviscerated. The patient had a substantial amount of purulent fluid in the abdominal cavity with interloop abscesses throughout. Once the bowel had been eviscerated, we then evaluated the right lower groin where the distal end of the cecum as well as distal on the small intestine were herniated through the right inguinal hernia. This was unable to be reduced. At this point, we made a right inguinal incision. This incision was taken down to the intra-abdominal fascia. The external oblique aponeurosis was opened. We opened this along the external ring. We encircled the cord structures. They were very inflamed. We were able to dissect deep into the scrotum to reduce the entire hernia contents. This was one large inflammatory mass with areas of ischemia, gangrene, and fluid. The testicle was clearly not viable at this point. We spent a great deal of time to isolate the bowel from the cord structures as well as the testicle which again was noted to be ischemic and nonviable. We reduced the bowel into the abdominal cavity and mobilized along the white line of [place] and the distal mesentery to free the cecum and to pull this up into the field. There was a patchy area of necrosis and ischemia laterally away from the ileocecal valve. We elected to maintain the valve and perform a cecectomy. We transected the mesoappendix and then made a small lateral opening in the colon. The suction radar repairer was then placed into the ileocecal valve and all the small intestinal contents were then decompressed and milked out of the colon. We then fired 2 firings of the Endo-TABITHA 75 green load stapler across the base of the appendix as well as the patchy area of the cecum. There was complete hemostasis and the remainder of the bowel was otherwise healthy and normal. At this point, we then elected to perform an orchiectomy due to the significant ischemia. The EnSeal device was then used to transect the cord vessels as well vas deferens. The specimen was then passed off the field. At this point, we then closed the anterior abdominal fascia by reapproximating the transversalis fascia as well as the internal oblique aponeurosis to the shelving edge using 0 PDS sutures in an interrupted fashion. Once this was completed, we then changed our gloves after irrigating the abdominal cavity copiously. We then placed a Conrad Bio-A mesh into the right groin. It was tacked along the shelving edge using 4.8 Endo [place] tacks and 0 Surgilon suture was also used to tack the mesh to the pubis. The external oblique aponeurosis was then closed over top of the mesh using 3-0 Vicryl. We used 3-0 Vicryl on the Dilia's, then closed the skin loosely with bailey. We then further evaluated the abdominal cavity. There were no other abnormalities noted. We ran the small intestine from proximal to distal. We once again copiously irrigated the abdominal cavity. Once completed, we then closed the anterior abdominal fascia using 2 running #1 PDS sutures. [place] were then used to loosely close the skin; however, the wound was left them mostly open and packed. We then extubated the patient and taken to the recovery in stable condition. Diskriter Job ID: [id number] Albert Tomas DO DOD:04/21/2018 10:43 A /lawanda DOT:04/21/2018 02:16 P Job Number: [id number] Document Number: [id number] cc: Albert Tomas DO [facility], [address] [place] [address] [place] [address] Observed: 04/21/2018 Status: F Source: [facility] SURGICAL PATHOLOGY 9:17 AM SYSTEM REPOSITORY [id number] [facility] PATHOLOGY AND LABORATORY MEDICINE [address] [place] [address] FINAL SURGICAL PATHOLOGY REPORT NAME: LUCAS EAST : 1945 73 Y Gregorio LMABERT NO.: [id number] LOCATION: I 1416 01 PROCEDURE 04/21/2018 DATE: SURGEON: ALBERT TOMAS DO RECEIVED 04/23/2018 DATE: ATTENDING: ALBERT TOMAS DO REPORT DATE: 04/24/2018 COPIES TO: DIAGNOSIS: A. CECUM, CECECTOMY - ULCER WITH TRANSMURAL INFLAMMATION AND PERFORATION WITH ASSOCIATED ACUTE FIBRINOPURULENT SEROSITIS B. TESTICLE, RIGHT, ORCHIECTOMY - INFLAMED AND EDEMATOUS TESTICLE CONSISTENT WITH ISCHEMIC ORCHITIS C. UMBILICAL HERNIA SAC, EXCISION - ACUTELY INFLAMED FIBROFATTY TISSUE CONSISTENT WITH STRANGULATED HERNIA JAW/VAHID <Sign Out Signature> WARREN JACOBS M.D. CLINICAL INFORMATION: Not provided SPECIMEN: (A) COLON, PARTIAL/TOTAL (B) TESTICLE(S) , right (C) HERNIA GROSS DESCRIPTION: A. Cecum Received in formalin is an unoriented segment of intestine measuring 14 cm in length and 3 cm in diameter appearing strangulated. The serosa is brown-feliz with areas of thick powers exudate. There is a defect on the serosal surface measuring 2.3 cm in diameter. This opening seems to extend into the mucosa. It is 5 cm away from the closest stapled resection margin. The underlying mucosa near the defect is feliz, smooth with regular mucosal folds. There is another white-powers purulent exudate area closest to the second closed margin. The underlying mucosa near this defect is brown-feliz without regular mucosal folds. Also received are two fragmented fibromembranous segments which aggregate and measure 12.0 x 8.0 x 1.2 cm. The external surface is powers-feliz. Sectioning reveals a fibrofatty cut surface. Signals Collector/Analyst sections are submitted. Cassette summary: A1 stapled resection margins; A2-4 automobile rental representative sections of the defect and underlying mucosa; A5-6 underlying bowel under the white fibrinous area; A7 automobile rental representative sections of the fibromembranous tissue. (bits ss, 7) B. Right testicle Received in formalin are multiple fragmented sections of fibromembranous tissue aggregating to 18 x 13 x 1 cm. The sections are held together by a thin, fibromembranous cord which also connects a cystic round segment of tissue measuring 10.5 x 8.0 x 3.5 cm. The specimen is unable to be oriented and no definite testicular tissue is identified. The fibromembranous segments are covered with a white fibrous exudate. Sectioning reveals a yellow fatty cut surface with focal areas of hemorrhagic tissue. Sectioning through the cystic mass reveals yellow clear fluid. Upon opening this mass it measures 75 grams. Further sectioning reveals two small calcified areas which range in greatest dimension from 0.3 to 0.7 cm. There is also an area which feels firmer and contains yellow-orange foamy material. Signals Collector/Analyst sections are submitted. Cassette summary: B1-6 automobile rental representative sections of the fibromembranous tissue; B7 automobile rental representative section of the calcified area within the cystic mass; B8 automobile rental representative section of testicle, B9-10 automobile rental representative sections of the yellow, foamy area within the cystic mass; B11-13 automobile rental representative sections of the cyst wall. (bits ss, 13) C. Umbilical hernia sac Received in formalin are multiple segments of fibromembranous tissue aggregating to 6.0 x 5.0 x 1.0 cm. Sectioning reveals a fibrofatty cut surface. No gross lesions are identified. Signals Collector/Analyst sections are submitted into a single cassette. (bits ss, 1) [facility] Disclaimer: The following statement applies to all immunohistochemistry, in situ hybridization, molecular studies, and immunofluorescence testing. The use of one or more reagents in the above tests is regulated as an analyte specific reagent (ASR). These tests were developed and their performance characteristics determined by the clinical laboratories of [facility]. They have not been cleared by the US Food and Drug Administration (FDA). The FDA has determined that such clearance or approval is not necessary. All the above immunostains were performed on paraffin embedded tissue. Appropriate positive and negative controls (where applicable) were run in parallel with the patient's specimen; these controls showed expected staining pattern, with acceptable intensity of staining. Immunohistochemical assays have not been validated on decalcified tissues. Results should be interpreted with caution given the raised possibility of false negativity on decalcified specimens. Professional Performing Location: [place] [address]. DEPARTMENT OF PATHOLOGY AND LABORATORY MEDICINE [place], [place] [address] HEMOGRAM W/ AUTODIFF Collected: 04/21/2018 Status: F Source: [facility] 5:48 AM SYSTEM REPOSITORY TYPE CODE TESTS RESULT OUT OF REFERENCE UNITS RANGE LAB IWBC 3.6-10.7 10*3/uL WBC Normal 4.3 LAB RBC 4.40-5.90 10*6/uL Low RBC 4.16 LAB HGB 13.0-18.0 g/dL Hemoglobin Normal 13.4 LAB HCT 40.0-52.0 % Low Hematocrit 38.7 LAB MCV 80.0-98.0 fL MCV Normal 93.0 LAB MCH 26.0-34.0 pg MCH Normal 32.1 LAB MCHC 32.0-36.0 % MCHC Normal 34.5 LAB RDW 11.5-14.5 % RDW Normal 13.7 LAB PLT 140-440 10*3/uL Platelet Normal 298 LAB MPV 7.4-10.4 fL MPV Normal 9.4 LAB GRAN% 40.0-80.0 % Granulocytes Normal 76.4 LAB LYMP% 20.0-40.0 % Low Lymphocytes 13.4 LAB MONO% 2.0-10.0 % Monocytes Normal 10.0 LAB EOS% 1.0-6.0 % Low Eosinophils 0.1 LAB BAS% 0.0-2.0 % Basophils Normal 0.1 LAB ANC 1.8-7.0 10*3/uL Abs Normal Neutrophile Cnt 3.3 LAB ALC 1.0-4.3 10*3/uL Low Abs Lymph Cnt 0.6 LAB AMC 0.0-0.8 10*3/uL Abs Monocyte Normal Cnt 0.4 LAB AEC 0.0-0.5 10*3/uL Abs Eosin Cnt Normal 0.0 LAB ABC 0.0-0.2 10*3/uL Abs Baso Cnt Normal 0.0 Performed By: #### HEMMAURICIO, PT, BMP3 #### [facility] [address] [place] [phone] PROTHROMBIN TIME Collected: 04/21/2018 Status: F Source: [facility] 5:48 AM SYSTEM REPOSITORY TYPE CODE TESTS RESULT OUT OF REFERENCE UNITS RANGE LAB PROTM 9.0-12.0 s Prothrombin High Time 13.4 Result Comment: . LAB INR 0.9-1.1 NA High INR 1.3 Result Comment: Recommended Anticoagulant Therapy: SEE BELOW ----- INR of 2.0 - 3.0 : - Prophylaxis of Venous Thrombosis (high-risk surgery) - Treatment of Venous Thrombosis - Treatment of Pulmonary Embolism (Includes tissue heart valves, Acute Myocardial Infarction to prevent systemic embolism, Valvular Heart Disease, and Atrial Fibrillation) ----- INR of 2.5 - 3.5 : - Mechanical Prosthetic Valves (high risk) - If oral anticoagulant therapy is used to prevent Myocardial Infarction Performed By: #### HEMDF, PT, BMP3 #### [facility] [address] [place] [phone] BASIC METABOLIC PANEL Collected: 04/21/2018 Status: F Source: [facility] 5:48 AM SYSTEM REPOSITORY TYPE CODE TESTS RESULT OUT OF RANGE REFERENCE UNITS LAB NA3 137-145 mmol/L Low Sodium 136 LAB K3 3.5-5.1 mmol/L Normal Potassium 3.8 LAB CL3 98-107 mmol/L Chloride Normal 104 LAB CO23 22-30 mmol/L Low Carbon Dioxide 20 LAB ANIN3 NA Anion Gap 12 LAB GLUC3 70-100 mg/dL High Glucose 153 LAB BUN3 7-20 mg/dL High Urea Nitrogen 64 LAB CRET3 0.52-1.25 mg/dL High Creatinine 1.89 LAB GF3BR >60 mL/min eGFR 42.8 LAB GF3WR >60 mL/min eGFR OTHER 35.3 Result Comment: Source- MDRD equation with creatinine calibration to IDMS(NKDEP) eGFR not recommended for drug dose adjustment LAB CA3 8.4-10.4 mg/dL Low Calcium 8.2 Performed By: #### HEMDF, PT, BMP3 #### [facility] [address] [place] [phone] Observed: 04/21/2018 Status: F Source: [facility] TS GEL 5:48 AM SYSTEM REPOSITORY ABO Group: A Rh, Gel: POS Antibody Screen Gel: NEG Performed By: #### TSGL #### [facility] [address] [place] [id number] LACTIC ACID Collected: 04/21/2018 Status: F Source: [facility] 4:59 AM SYSTEM REPOSITORY TYPE CODE TESTS RESULT OUT OF REFERENCE UNITS RANGE LAB LACT3 0.7-2.0 mmol/L High Alert Lactic Acid 3.9 Result Comment: Repeated Performed By: #### LACT3 #### [facility] [address] [place] [phone] ED PROVIDER NOTE Observed: 04/21/2018 Status: F Source: [facility] 4:19 AM SYSTEM REPOSITORY Emergency Department Encounter [facility] EMERGENCY DEPT Patient: Lucas East : 1945 Date of Evaluation: 04/21/2018 ED Supervising Physician: Anson Amado MD I independently examined and evaluated Lucas East. In brief, Lucas East is a 73 y.o. male that presents to the emergency department diffuse abdominal pain and distention. Severe pain in right scrotum. Focused exam: Right scrotum is distended hard bread extremely tender consistent with this incarcerated hernia Brief ED course/MDM: Exam is consistent with incarcerated hernia. Patient'svitalsignsinappearanceveryconcernedaboutangulation.Surgerypagedemergent ly.IVfluidresuscitationstarted. We will continue to follow closely. Re-Assessments: ED Course as of Apr 21 458 Sat Apr 21, 2018 0456 Went to the bedside immediately. Right scrotum is hard distended extremely painful. Hypotensive tachycardic. This consistent with a strangulated hernia. Try to reduce it I was unable. Surgery was immediately paged as soon as patient arrived. Per being conservative with pain control patient's blood pressure is soft. Will continue to reassess frequently. Patient is in critical condition. [SH] ED Course User Index [SH] Anson Amado MD CRITICAL CARE TIME Total Critical Care time was 31 minutes, excluding separately reportable procedures. There was a high probability of clinically significant/life threatening deterioration in the patient's condition which required my urgent intervention. All diagnostic, treatment, and disposition decisions were made by myself in conjunction with the advanced practice provider. For all further details of the patient's emergency department visit, please see their documentation. (Please note that portions of this note may have been completed with a voice recognition program. Efforts were made to edit the dictations but occasionally words are mis-transcribed.) Anson Amado MD Acute Care [facility] Anson Amado MD 04/21/189 ED PROVIDER NOTE Observed: 04/21/2018 Status: F Source: [facility] 4:19 AM SYSTEM REPOSITORY [facility] EMERGENCY DEPT eMERGENCY dEPARTMENT eNCOUnter Pt Name: Lucas East Birthdate 1945 Date of evaluation: 04/21/2018 Provider: Kia Hopkins PA-C CHIEF COMPLAINT Chief Complaint Patient presents with ? Abdominal Pain Patient brought in by [facility] to be evaluated for ABD pain. Patient is a transfer from [place] [facility] ED for inguinal hernia and a SBO and needs a surgery consult. Patient complains of diffuse ABD pain. ABD distended and tender. Patient states unable to have a bowel movement. Patient diaphoretic upon arrival. HISTORY OF PRESENT ILLNESS (Location/Symptom, Timing/Onset, Context/Setting, Quality, Duration, Modifying Factors, Severity) Note limiting factors. HPI Lucas East is a 73 y.o. male who presents to the emergency department with complaint of Abdominal pain. Patient presents as a transfer via [facility] for RIGHT inguinal hernia incarceration with small bowel obstruction on CT. Patient states that for the last 2 days he has had diffuse generalized abdominal pain described as constant sharp stabbing pain radiating to his RIGHT groin. He states that his abdomen has been distended and he has been constipated. He complains of nausea and vomiting. No hematemesis, hematochezia or melena. He has been complaining of subjective fevers and chills. No chest pain or shortness of breath. Pain is worsened with movement and palpation. No alleviating factors. Patient has a past medical history significant for hypertension, history of a liver mass. Patient is a nonsmoker, denies IV or illicit drug abuse. Nursing Notes were reviewed and confirmed as correct. REVIEW OF SYSTEMS (2+ for level 4; 10+ for level 5) Review of Systems This patient's personal and family past medical history as stated in HPI and otherwise negative. ROS as stated in HPI otherwise negative, a total of 10 systems reviewed. PAST MEDICAL HISTORY Past Medical History: Diagnosis Date ? HTN (hypertension) SURGICAL HISTORY History reviewed. No pertinent surgical history. CURRENT MEDICATIONS Previous Medications No medications on file ALLERGIES Patient has no known allergies. FAMILY HISTORY History reviewed. No pertinent family history. SOCIAL HISTORY Social History Social History ? Marital status: Single Spouse name: N/A ? Number of children: N/A ? Years of education: N/A Social History Main Topics ? Smoking status: Never Smoker ? Smokeless tobacco: Never Used ? Alcohol use No ? Drug use: No ? Sexual activity: Not Asked Other Topics Concern ? None Social History Narrative ? None SCREENINGS PHYSICAL EXAM (up to 7 for level 4, 8 or more for level 5) ED Triage Vitals [04/21/18 0433] BP Temp Temp Source Pulse Resp SpO2 Height Weight 91/62 98 ?F (36.7 ?C) Oral 95 16 (!) 88 % 6' 2 (1.88 m) 245 lb (111.1 kg) Physical Exam Constitutional: Patient is AAO x3, Resting in bed, diaphoretic, appears to be in severe discomfort. Vitals as stated above. Psych: Appropriate mood and affect for chief complaint. Integumentary: Skin intact, no erythema, no ecchymosis, no soft tissue swelling, skin is warm and dry. Neuro: Patient has sensation to all areas, cranial nerves II through XII are grossly intact, cerebella function is normal, no gross sensory or motor deficit. Vascular: Good ulnar and radial pulses bilaterally. Good dorsal pedis and posterior tibial pulses bilaterally.Capillary refill is less than 2 seconds. Cardiac: Regular rhythm and tachycardic, S1-S2 are both audible. No murmurs rubs or gallops. No JVD. Respiratory: Lungs clear to auscultation in all coker. No tachypnea. Patient speaks in full sentences. No accessory muscle use. Musculoskeletal: Muscle grading in bilateral upper and lower extremities is 5/5. No bony tenderness. Patient ambulates without difficulty. GI: Abdomen is soft, distended, diffusely tender with voluntary guarding although no rigidity or rebound tenderness, no palpable masses, no audible bruit, no pulsatile masses. There is no organomegaly. Patient has diminished bowel sounds in all areas. No pain at McBurney's point, negative Traore's sign. : No CVA tenderness or suprapubic pain. RIGHT scrotum is diffusely erythematous, swollen and tender. Extremities: Skin is warm and dry. No soft tissue swelling or edema. HEENT: Head appears atraumatic and normocephalic. Trachea midline. Neck is supple. Throat, oral and nasal mucosa is moist and pink. Eyes: Conjunctivae are clear. Full extraocular eye movements intact. PERRL. LABS: Labs Reviewed LACTIC ACID, PLASMA - Abnormal; Notable for the following: Result Value Lactic Acid 3.9 (*) All other components within normal limits Narrative: [facility] [place] [address] CBC WITH AUTO DIFFERENTIAL - Abnormal; Notable for the following: RBC 4.16 (*) Hematocrit 38.7 (*) Lymphocyte % 13.4 (*) Eosinophils 0.1 (*) Absolute Lymph # 0.6 (*) All other components within normal limits Narrative: Test Performed [facility] [place] [address] BASIC METABOLIC PANEL - Abnormal; Notable for the following: Sodium 136 (*) CO2 20 (*) Glucose 153 (*) BUN 64 (*) CREATININE 1.89 (*) Calcium 8.2 (*) All other components within normal limits Narrative: Test Performed by [facility], [address] [place] [address] PROTIME-INR - Abnormal; Notable for the following: Protime 13.4 (*) INR 1.3 (*) All other components within normal limits Narrative: Test Performed by [facility], [address] [place] [address] LACTIC ACID, PLASMA LACTIC ACID, PLASMA TYPE AND SCREEN Narrative: Test Performed by [facility] [place] [address] Radiographs: No results found. EKG: All EKG's are interpreted by the Emergency Department Physician in the absence of a air brush operator.? Please see their note for interpretation of EKG. All other labs were within normal range or not returned as of this dictation. EMERGENCY DEPARTMENT COURSE and DIFFERENTIAL DIAGNOSIS/MDM: Vitals: Vitals: 04/21/18 0433 04/21/18 0437 04/21/18 0548 BP: 91/62 (!) 97/58 Pulse: 95 94 Resp: 16 18 Temp: 98 ?F (36.7 ?C) TempSrc: Oral SpO2: (!) 88% 92% 99% Weight: 111.1 kg (245 lb) Height: 6' 2 (1.88 m) Medications cefOXitin (MEFOXIN) 1 g in dextrose 5% 50 mL (mini-bag) (not administered) fentaNYL (SUBLIMAZE) injection 50 mcg (50 mcg Intravenous Given 04/21/18 0505) ondansetron (ZOFRAN) injection 4 mg (4 mg Intravenous Given 04/21/18 0506) 0.9 % sodium chloride bolus (1,000 mLs Intravenous New Bag 04/21/18 0505) ondansetron (ZOFRAN) injection 4 mg (4 mg Intravenous Given 04/21/18 0549) MDM This is a 73-year-old male presenting to the emergency department for evaluation of abdominal pain. Patient presents hypotensive 80s over 60s, tachycardic with a rate of 110, otherwise afebrile, satting 90 percent on room air. On exam he has diffuse distention and tenderness with voluntary guarding as well as diffuse erythema, swelling and tenderness to the RIGHT scrotum. He presents via EMS from [facility] ED for evaluation of RIGHT inguinal hernia with small bowel obstruction diagnosed on CT. I consult to general surgery immediately upon arrival for concern of strangulated hernia. We obtained basic medical screening labs, lactic acid. IV was established and patient received IV Zofran as well as fentanyl and IV fluids. Medical records were reviewed. No recent ED visits or hospitalizations other than after mentioned ED visit from [facility] today. Risk factors significant for hypertension, history of liver mass. Labs were ordered and reviewed. No leukocytosis or anemia. Lactic acid 3.9. INR 1.3. General surgery evaluated the patient at the bedside and patient was admitted to their service for further care, diagnostic laparoscopy, inguinal and umbilical hernia repair. Patient has been evaluated in conjunction with ED attending who agrees with patient plan and disposition. This patient does not appear to be septic or toxic. No evidence of focal deficits or weakness. REVAL: Upon reevaluation, Remains hemodynamically stable, admitted to surgery. PROCEDURES: Unless otherwise noted below, none Procedures FINAL IMPRESSION 1. Strangulated inguinal hernia 2. Generalized abdominal pain DISPOSITION/PLAN DISPOSITION Admitted 04/21/2018 06:38:13 AM admit PATIENT REFERRED TO: Swetha Aleman [address] [facility] [place] [address] DISCHARGE MEDICATIONS: New Prescriptions No medications on file (Please note: Portions of this note were completed with a voice recognition program. Efforts were made to edit the dictations but occasionally words and phrases are mis-transcribed.) Form [id number] Kia Hopkins PA-C (electronically signed) Emergency Medicine Provider Kia Hopkins PA-C 04/21/18 0654 EMERGENCY DEPARTMENT Observed: 04/21/2018 Status: F Source: [place] SUMMARY 2:14 AM [facility] [place] [facility] Medical Records Department [address] [place] [address] Emergency Department Summary 04/21/18 0057 MR#: [id number] Acct: [id number] Name: ROCAELLUCAS R Rep #: [id number] : 1945 73 From: Bobby Walton MD PCP: Swetha Aleman DO Status: REG ER - ER Visit [...] no hemotympanum no trauma Neck: Nontender full range of motion Cardiovascular: Regular rate rhythm no murmurs normal S1-S2 Respiratory: No distress clear to auscultation bilaterally chest nontender Abdomen: Mild diffuse lower abdominal tenderness. Small umbilical hernia. Large right inguinal hernia into the scrotum. It is a baseball size. There is induration. Tenderness. Back: Nontender no CVA tenderness Extremities: Nontender active range of motion 4 extremities no trauma Skin: Normal color no trauma Neuro alert oriented cranial nerves II through XII intact normal strength sensation reflexes Test Results: [] Emergency Department Course and Treatment: [] Multiple attempts were tried to reduce the hernia with no success. It is too large and indurated. CBC normal. Chemistries normal except sodium 130. Chloride 96. Creatinine 1.5. Coags are negative. CT abdomen pelvis shows small bowel obstruction with incarcerated right inguinal hernia. I do not think the patient needs an NG. Is not having vomiting. Will be transferred to [facility] as our operating room is down for cleaning. Discussed with our surgeon on-call Dr. Amezcua and also Dr. Cohen at [facility]. He will be transferred. Given morphine IV fluids and Zofran with good relief of symptoms Treatment Plan: [] Disposition: [] Impression: [] Incarcerated right inguinal hernia Small bowel obstruction secondary to incarcerated inguinal hernia Acute renal insufficiency Critical CARE time: 30-74 minutes This note was generated with Generate dictation software. It may contain incorrect words, spelling, and punctuation that were not noted in review of the chart prior to signing ED Disposition - Plan for ED Patient: Chief Complaint: Abd Pain Referrals: Swetha Aleman, DO [Primary Care Provider] - What to do if you have Problems For any increased pain, shortness of breath, bleeding, nausea or vomiting, chest pain, or any unexpected problems, contact your Primary Care Provider. Call [facility] ([phone]) or report to the closest Emergency Room. Call 911 if necessary. 04/21/18 0214 <Electronically signed by Bobby Walton MD> Date Bobby Walton MD Cosigner Signature (If Indicated): Date CC: Swetha Aleman DO ABDOMEN/PELVIS WITHOUT Observed: 04/20/2018 Status: F Source: [place] CONT 11:39 PM [facility] [place] [facility] Imaging Services [address] [place] [address] Abdomen/Pelvis without Cont MR#: [id number] Acct: [id number] Name: LUCAS EAST Rep #: [id number] : 1945 M 73 From: Laverne Ladd MD PCP: Swetha Aleman DO Status: REG ER Study: Abdomen/Pelvis without Cont Date of Exam: 04/20/18 Exam# [id number] Ordering Dr: Bobby Walton MD STUDY: CT ABDOMEN AND PELVIS WITHOUT CONTRAST [...] symphysis pubis without oral contrast, and without intravenous contrast. Sagittal and coronal images were reconstructed. Individualized dose optimization techniques were used for this CT. COMPARISON: None. FINDINGS: There is dependent atelectasis in the right and left lung lower lobes. The visualized portions of the heart are within normal limits. Normal liver. There are multiple gallstones. Normal spleen. Normal pancreas. Normal bilateral adrenal glands. Normal right kidney. Normal left kidney. Normal visualized stomach. There are dilated loops of the small intestine with a non-distended colon consistent with a small bowel obstruction. Due to incarcerated right inguinal hernia measures approximately 9.5 x 7 x 14 cm. Normal colon. The appendix is visualized and appears normal. Normal abdominal aorta. Normal inferior vena cava. Normal retroperitoneum. Normal urinary bladder. There is an incarcerated right-sided inguinal hernia containing the ileocecal junction. There is an umbilical hernia containing fat measures 3 cm. Normal osseous structures. CT/Abdomen/Pelvis without Cont IMPRESSION: There are dilated loops of the small intestine with a non- distended colon consistent with a small bowel obstruction. There is an incarcerated right inguinal hernia measures approximately 9.5 x 7 x 14 cm. Electronically Signed: Laverne Ladd MD at 0:50 EDT Tel , Service support , CC: Swetha Aleman DO; Bobby Walton MD Vice President Of Operations: Signed BASIC METABOLIC Collected: 04/20/2018 Status: F Source: [place] PROFILE (BMP) 11:10 PM [facility] [place] TYPE CODE TESTS RESULT OUT OF RANGE REFERENCE UNITS LAB L501.0100 74-106 mg/dL High GLU 167 Result Comment: Fasting Glucose result greater than or equal to 126 mg/dL suggests DIABETES MELLITUS per A.D.A. criteria. Please note revised GLUCOSE reference range effective 2017. LAB L501.1000 7-18 mg/dL High BUN 63 LAB L501.1100 0.70-1.30 mg/dL High CREAT,SERUM 1.54 Result Comment: The validity of the calculated GFR AND GFRAA in patients over 70 years has not been determined. Clinical correlation is essential. LAB L501.1110 >60 mL/min Low EST GFR 48 Result Comment: Non- GFR Calc LAB L501.1115 >60 mL/min Low EST GFR - AA 58 Result Comment: GFR Calc LAB L501.1255 ml/min Normal Estimated CRCL 51.15 LAB L501.1300 10-20 RATIO High BUN/CRE 40.9 LAB L501.2200 8.5-10 mg/dL Normal .1 CA 9.4 LAB L501.5300 136-14 mmol/L Low 5 NA 130 LAB L501.5600 3.5-5. mmol/L Normal 1 K 3.9 LAB L501.5900 98-107 mmol/L Low CL 96 LAB L501.6100 21.0-3 mmol/L Normal 2.0 CO2 22.0 LAB L501.6200 5-15 Normal GAP 12 Performed By: #### L500.2500 #### [facility] [address] [place], [place], [id number] CBC W/DIFF, AUTOMATED Collected: 04/20/2018 Status: F Source: [place] 11:10 PM [facility] [place] [place] TYPE CODE TESTS RESULT OUT OF RANGE REFERENCE UNITS LAB L100.1000 4.4-11.0 K/mm3 Normal WBC 7.4 LAB L100.1200 4.6-6.2 M/mm3 Low RBC 4.36 LAB L100.1300 13.0-16.5 g/dl Normal HGB 13.5 LAB L100.1400 40-54 % Normal HCT 40.4 LAB L100.1500 80-94 fL Normal MCV 92.7 LAB L100.1600 27.0-32.0 pg Normal MCH 31.0 LAB L100.1700 32-36 g/gl Normal MCHC 33.4 LAB L100.1810 11.6-14.6 % Normal RDW CV 13.7 LAB L100.1820 35.1-43.9 fl High RDW SD 46.5 LAB L100.1900 150-450 K/mm3 Normal PLT 316 LAB L100.2000 6.2-12.0 fl Normal MPV 10.8 LAB L100.2100 47-70 % Normal NEUT% 55.3 LAB L100.2200 19-41 % Normal LY% 36.3 LAB L100.2300 0-10 % Normal MONO% 7.7 LAB L100.2400 0-5 % Normal EO% 0.3 LAB L100.2500 0-1 % Normal BASO% 0.3 LAB L100.2550 0.0-0.9 % Normal IM GRAN % 0.100 Result Comment: IG% - Immature Granulocytes (promyelocytes, myelocytes and metamyelocytes) > 1% indicates that a LEFT SHIFT is Present. LAB L100.2620 2.0-7.7 X10 3/uL Normal Absolute Neut 4.1 LAB L100.2720 0.83-4.51 X10 3/ul Normal Absolute Lymph 2.70 Performed By: #### L100.0100 #### [facility] [address] [place], [address] PROTHROMBIN TIME W/INR Collected: 04/20/2018 Status: F Source: [place] 11:10 PM [facility] [place] TYPE CODE TESTS RESULT OUT OF RANGE REFERENCE UNITS LAB L300.4150 11.7-14.9 SECONDS High PROTIME 16.3 LAB L300.4200 Normal INR 1.3 Performed By: #### L300.3900, L300.4310 #### [facility] [address] [place], [place], [address] (911) PARTIAL THROMBOPLAST Collected: 04/20/2018 Status: F Source: [place] TIME 11:10 PM [facility] [place] TYPE CODE TESTS RESULT OUT OF REFERENCE UNITS RANGE LAB L300.4310 24.1-36.2 Seconds High PTT 39.8 Performed By: #### L300.3900, L300.4310 #### [facility] [address] [place], [address] PSA,TOTAL- DIAGNOSTIC Collected: 12/18/2017 Status: F Source: [place] 9:49 AM [facility] [place] [place] TYPE CODE TESTS RESULT OUT OF REFERENCE UNITS RANGE LAB L501.9940 0.0-4.0 ng/mL PSA, High DIAGNOSTIC 4.43 Result Comment: This test was performed using the TPSA assay method for the Savored chemistry system. Values obtained with different assay methods cannot be used interchangably. When changing PSA assays in the course of monitoring a patient, additional sequential testing should be carried out to confirm baseline values. Performed By: #### L501.9940 #### [facility] [address] [place], [place], [address] ALLERGIES ALLERGIES DATE TYPE / CODE NAME / CODE REACTION SEVERITY SOURCE 05/11/2018 Drug No Known Unknown [facility] Allergy/4160 Allergies/F00 Hospital 55137(SNOMED 1992016(RXNOR Repository CT) M) ENCOUNTERS ENCOUNTERS ADMIT/DISCHARGE ACCOUNT NUMBER ADMITTING ENCOUNTER LOCATION SOURCE CLASS 07/16/2018 3400 Ambulatory Building:[facility] Practices Repository 07/10/[id number] [facility] ding:MTRAD Repository 06/19/[id number] [facility] ding:RAD.FUT Repository URE 05/25/[id number] [facility] ding:MTLAB Repository 05/11/2018/05/16/20 [id number] [place], Inpatient [address] Encounter [facility] ding:MZ2Hpre Repository : IR584Pqk: 1 05/11/2018 [id number] [place], Ambulatory BMSBuilding: [facility] Repository 05/11/2018 [id number] [place], Ambulatory BMSBuilding: [place] BMS.[facility] Repository 05/11/2018 [id number] [place], Ambulatory BMSBuilding: [facility] [facility] BMS.[facility] Repository 05/11/2018 [id number] [place], Ambulatory BMSBuilding: [place] BMS.[facility] Repository 05/11/2018 [id number] [place], Ambulatory BMSBuilding: [place] BMS.[facility] Repository 05/11/2018 [id number] [place], Ambulatory BMSBuilding: [place] Jose BMS.[facility] Repository 05/11/2018/05/16/20 [id number] Ambulatory BMSBuilding: [place] [facility] Repository 04/21/[address] [id number] Inpatient [address] [place] [address] Encounter [employer]ERoom: System [id number]: Repository [id number] 04/20/2018/04/21/20 [id number] Emergency [place] ding:ED Repository 12/18/[id number] [facility] ding:LAB Repository FUNCTIONAL STATUS FUNCTIONAL STATUS No Functional Status Records FoundEQUIPMENT EQUIPMENT No Equipment Records FoundPAYERS PAYERS ENCOUNTER GUARANTOR PAYER SUBSCRIBER SOURCE 07/16/2018 Lucas R Primary Lucas R OHIP Practices MessnerDOB: Insurance:Summa MessnerDOB: Repository [id number] Box [facility] Number: [id number] [address] [place] [address] [id number] [address], [address]Qzg: (330) Date:9752-60-03Nmwn [place] [address]Lcv: [phone] (HP) Name:[address] () [address]TQ: 07/16/2018 Secondary Lucas R OHIP Practices Insurance:Summa MessnerDOB: Repository [facility] Number: [id number] [address] Date:2003-02-28 - [place] [address]Gzw: [id number] Name:[address] (HP) [address] [address]VT: 07/10/2018 LUCAS R Primary LUCAS R Igor QUINTERONER630 Insurance:SUMMA CARE MESSNERDOB: [facility] #4PO MEDICAREPolicy [id number] Hospital [address], Number: [place]ository [place] [address]Moi: [id number] Date:1597-02-01IP BOX (HP) [address], [place] [address]QF: 07/10/2018 Secondary NOT GIVENUNK Igor Insurance:SELF PAY [facility] Number: Effective Repository Date:2018-06-28 06/19/2018 LUCAS R Primary LUCAS R Igor [address] Insurance:SUMMA CARE MESSNERDOB: [facility] [id number] COLLEGE MEDICAREPolicy [id number], Number: Repository [place] [address]Bcj: [id number] Date:8798-42-72KM BOX (HP) [address] [address]ZL: 06/19/2018 Secondary NOT GIVENUNK Igor Insurance:SELF PAY [facility] Number: Effective Repository Date:2018-05-25 05/25/2018 LUCAS R Primary LUCAS R [place] [address] Insurance:SUMMA CARE MESSNERDOB: Community [id number] COL[employer] MEDICAREPolicy [id number], Number: Repository [place] [address]Jvp: [id number] Date:7204-75-72GD BOX (HP) [address] [address]PC: 05/25/2018 Secondary NOT GIVENUNK [place] Insurance:SELF PAY [facility] Number: Effective Repository Date:2018-05-17 05/11/2018 LUCAS R Primary LUCAS R [place] [address] Insurance:SUMMA CARE MESSNERDOB: Community [id number] COL[place] MEDICAREPolicy [id number], Number: Repository [place] [address]Zdh: [id number] Date:2249-27-49PA [address]OX (HP) [address] [address]JN: 05/11/2018 Secondary NOT GIVENUNK Igor Insurance:SELF PAY [facility] Number: Effective Repository Date:2018-05-11 05/11/2018 LUCAS R Primary LUCAS R Igor [address] Insurance:SUMMA CARE MESSNERDOB: Community [id number] COL[place] MEDICAREPolicy [id number], Number: Repository [place] [address]Naa: [id number] Date:6440-66-14PI [address]OX (HP) [address] [address]OQ: 05/11/2018 Secondary NOT GIVENUNK Igor Insurance:SELF PAY [facility] Number: Effective Repository Date:2018-05-11 05/11/2018 LUCAS R Primary LUCAS R [place] [address] Insurance:SUMMA CARE MESSNERDOB: Community [id number] COL[place] MEDICAREPolicy [address] [address], Number: Repository [place] [address]Ykp: [id number] Date:5734-81-88DY [address]OX (HP) [address] [address]FF: 05/11/2018 Secondary NOT GIVENUNK [place] Insurance:SELF PAY [facility] Number: Effective Repository Date:2018-05-11 05/11/2018 LUCAS R Primary LUCAS R Igor [address] Insurance:SUMMA CARE MESSNERDOB: [facility] [id number] COL[place] MEDICAREPolicy [address] [address], Number: Repository [place] [address]Cvy: [id number] Date:7963-16-48FD BOX (HP) [address], [place] [address]WI: 05/11/2018 Secondary NOT GIVENUNK I[place] Insurance:SELF PAY [facility] Number: Effective Repository Date:2018-05-11 05/11/2018 LUCAS R Primary LUCAS R I[place] [address] Insurance:SUMMA CARE MESSNERDOB: [facility] [id number] COL[employer] MEDICAREPolicy [address] [address], Number: Repository [place] [address]Lyy: [id number] Date:9896-18-61YL BOX (HP) [address], [place] [address]UL: 05/11/2018 Secondary NOT GIVENUNK [place] Insurance:SELF PAY [facility] Number: Effective Repository Date:2018-05-11 05/11/2018 LUCAS R Primary LUCAS R Igor [address] Insurance:SUMMA CARE MESSNERDOB: [facility] [id number] COL[employer] MEDICAREPolicy [id number], Number: [place]ository [place] [address]Hrl: [id number] Date:6297-96-53PG BOX (HP) [address] [address]LB: 05/11/2018 Secondary NOT GIVENUNK [place] Insurance:SELF PAY [facility] Number: Effective Repository Date:2018-05-11 05/11/2018 LUCAS R Primary LUCAS R Igor [address] Insurance:SUMMA CARE MESSNERDOB: Community [id number] COL[place] MEDICAREPolicy [id number] [address], Number: Repository [place] [address]Gmp: [id number] Date:1294-58-34[place] [address] (HP) [address], [place] [address]WD: 05/11/2018 Secondary NOT GIVENUNK I[place] Insurance:SELF PAY [facility] Number: Effective Repository Date:2018-05-11 05/11/2018 LUCAS R Primary LUCAS R [place] [address] Insurance:SUMMA CARE MESSNERDOB: Community [id number] COL[place] MEDICAREPolicy [id number] [address], Number: Repository [place] [address]Bxs: [id number] Date:3639-29-55MM B[address] () [address], [place] [address]FF: 05/11/2018 Secondary NOT GIVENUNK [place] Insurance:SELF PAY [facility] Number: Effective Repository Date:2018-05-11 04/21/2018 Lucas Primary Lucas [facility] MessnerDOB: Insurance:SummaCarePo MessnerDOB: System [id number] [address] Number: [id number] [place] [address] Effective Date: [address]Ifg: () 04/21/2018 Secondary Lucas [facility] Insurance:MedicarePol MessnerDOB: System icy Number: Effective [id number] Repository Date: 04/20/2018 Lucas R Primary Lucas R Igor MessnerPo Box Insurance:SUMMA CARE MessnerDOB: [facility] [address] MEDICAREPolicy [id number] Hospital [address]Ieq: (330) Number: Repository [phone] () [id number] Date:5946-93-84XM [address], [place] [address]EC: 04/20/2018 Secondary NOT GIVENUNK Igor Insurance:SELF PAY [facility] Number: Effective Repository Date:2018-04-20 12/18/2017 Lucas R Primary Lucas R Igor [facility] Box [facility] [address] MEDICAREPolicy [id number] Hospital [address]Suv: (330) Number: Repository [phone] () [id number] Date:8547-10-86PR[address]RA[address]EM[place], [place] [address]NJ: 12/18/2017 Secondary NOT GIVENUNK Igor Insurance:SELF PAY [facility] Number: Effective Repository Date:2017-12-18 SOCIAL HISTORY SOCIAL HISTORY No Social History Records FoundFAMILY HISTORY FAMILY HISTORY No Family History Records FoundPREGNANCY No Status Records FoundADVANCE DIRECTIVES ADVANCE DIRECTIVES No Advanced Directives Records FoundINFORMATION SOURCE INFORMATION SOURCE DATE CREATED AUTHOR AUTHOR'S ORGANIZATION 08/22/2018 TONI
== END ==
PROVIDERS: Family Provider Internal Medicine; PCP Internal Medicine; Referring Provider Internal Medicine; Visit Provider Internal Medicine
DX: J90 Pleural effusion, not elsewhere classified (principal)
CPT/HCPCS: 71046

== ENCOUNTER → 2018-12-10 09:23 | Outpatient (CLI) | payer MEDICARE, SELFPAY ==
[2018-05-14 09:45] VITALS: BMI 29.3
[2018-12-10 12:36] LABS: PSA,Total- Diagnostic 3.87 ng/mL (0.0-4.0)
== END ==
PROVIDERS: Family Provider Internal Medicine; PCP Internal Medicine; Referring Provider Urology; Visit Provider Urology
DX: C61 Malignant neoplasm of prostate (principal)
CPT/HCPCS: 36415; 84153

== ENCOUNTER → 2022-10-31 | Outpatient (CLI) | payer MEDICARE, SELFPAY | END | disposition home or self-care (01) | LOC: LAB.FUTURE 08:49 → LAB 11-01 06:13 | PROVIDERS: PCP Internal Medicine; Referring Provider Internal Medicine; Visit Provider Internal Medicine | DX: R97.20 Elevated prostate specific antigen [PSA] (principal) | CPT/HCPCS: 36415; 84153 ==

== ENCOUNTER → 2023-08-14 | Outpatient (CLI) | payer MEDICARE, SELFPAY ==
[2023-08-14 14:05] LABS: PSA,Total- Diagnostic 6.21 ng/mL (0.0-4.0)
== END | disposition home or self-care (01) ==
LOC: LAB 11:21
PROVIDERS: PCP Internal Medicine; Referring Provider Urology; Visit Provider Urology
DX: C61 Malignant neoplasm of prostate (principal)
CPT/HCPCS: 36415; 84153

== ENCOUNTER → 2024-02-12 | Outpatient (CLI) | payer MEDICARE, SELFPAY ==
[2024-02-12 10:26] LABS: PSA,Total- Diagnostic 5.38 ng/mL (0.0-4.0)
== END | disposition home or self-care (01) ==
LOC: LAB 08:27
PROVIDERS: PCP Internal Medicine; Referring Provider Urology; Visit Provider Urology
DX: C61 Malignant neoplasm of prostate (principal)
CPT/HCPCS: 36415; 84153

== ENCOUNTER → 2024-08-12 | Outpatient (CLI) | payer MEDICARE, SELFPAY | END | disposition home or self-care (01) | LOC: LAB 08:13 | PROVIDERS: PCP Internal Medicine; Referring Provider Urology; Visit Provider Urology | DX: C61 Malignant neoplasm of prostate (principal) | CPT/HCPCS: 36415; 84153 ==

== ENCOUNTER → 2025-02-11 | Outpatient (CLI) | payer MEDICARE, SELFPAY ==
[2025-02-11 10:44] LABS: PSA,Total- Diagnostic 6.46 ng/mL (0.00-4.00)
== END | disposition home or self-care (01) ==
LOC: LAB 09:12
PROVIDERS: PCP Internal Medicine; Referring Provider Internal Medicine; Visit Provider Internal Medicine
DX: N40.1 Benign prostatic hyperplasia with lower urinary tract symptoms (principal)
CPT/HCPCS: 36415; 84153